=== PATIENT | male | born 1940 | race Caucasian/White ===

== ENCOUNTER → 2018-04-11 10:11 | Outpatient (REF) | payer MEDICARE, SELFPAY ==
[2018-04-11 13:49] LABS: Anion Gap 8.4 mmol/L (3-11); BUN 21 mg/dL (7-18); CO2 28.6 mmol/L (21.0-32.0); CREATININE 1.22 mg/dL (0.70-1.30); Calcium 8.4 mg/dL (8.5-10.1); Chloride 108 mmol/L (98-107); Glucose 134 mg/dL (70-100); Potassium 4.7 mmol/L (3.5-5.1); Sodium 145 mmol/L (136-145)
[2018-04-12 11:24] LABS: PSA, Screening 0.2 ng/ml (0-6.5)
== END ==
LOC: NCHCN 10:11
PROVIDERS: PCP Family Medicine; Visit Provider Family Medicine
DX: I10 Essential (primary) hypertension (principal); Z12.5 Encounter for screening for malignant neoplasm of prostate
CPT/HCPCS: 80048; 84153

== ENCOUNTER → 2018-04-12 07:32 | Outpatient (CLI) | payer MEDICARE, SELFPAY | PROVIDERS: PCP Family Medicine; Visit Provider Surgery | DX: L97.911 Non-pressure chronic ulcer of unspecified part of right lower leg limited to breakdown of skin (principal) | CPT/HCPCS: 29580 ==

== ENCOUNTER 2018-04-12 13:30 | Outpatient (RCR) | payer MEDICARE, SELFPAY ==
--- NOTE | 2018-04-12 13:30 | PN_ITS ---
DATE: April 12, 2018 REFERRING: Ry Navas MD REFERRING PROVIDER DIAGNOSIS:: knee and hip pain REPORTING PERIOD (for progress note and discharge note only): 01/18/18-04/12/18 SUBJECTIVE: Andres feels that he has made some great gains in his mobility, strength and level of pain in his lower extremities. He would like to continue his program on the Wellness level. He overall notes increased stamina and ability to complete increased demurrage agent with more manageable symptoms. OBJECTIVE: Observation: (behavior, atrophy, skin color, etc.) Utilizes a standard, single point cane for ambulation.Independent with functional transfers including bed mobility. Is currently able to complete 2 sit to stand transfers without use of UE. Gait: Single point cane with a widened base of support and a toe out pattern. Improved kelli. Improved stride length and stamina. 6 minute walk assessment 250 meters in comparison to 118 meters upon IE in January. Still remains shy of Age appropriate range of 357 to 697 meters.However significant improvement since IE. ROM: Active right hip flexion to 90 ; left 90 , ext rotation right 45 ; left 40 , int rotation right 10; left 20 . knee flexion right 105 ; left 115 , terminal extension right lacking 5 with 0 extension. Strength: Hip flexion 4/5 bilaterally, hip abduction 4-/5 right; 4/5 left, ext rotation 4/5 bilaterally, knee flexion and extension 5/5 bilaterally and he is able to complete an active SLR in flexion and abduction. Unable to lay prone, therefore unable to assess extension. Neuro: Sensation is intact to light touch. Balance: 4 stage balance test, feet together x10 seconds, foot in instep of other foot x10 seconds and he is not able to assume tandem, however demonstrates modified tandem at 10 seconds. Unable to perform unilateral stance. 30 second chair stand test, 2 repetitions. Was unable to perform at IE. ASSESSMENT: Andres has made significant gains since evaluation in early January. Feel at this time he can proceed with independent self management via strong HEP. Have also recommended Wellness program for him to continue with his functional strength and stamina. Do not want to see him losing ground. Patient is also in agreement and knows that he needs to continue to build his functional strength and endurance on a regular basis to avoid continued decline. KX modifier to be utilized as justified by above documentation for necessity of continued Physical Therapy intervention to attend to functional deficits which have not been fully remediated as they approach their Medicare cap. G-Codes (fill in modifier after appropriate code): Patient's primary functional limitation is in the category of: Projected goal: __x__ Mobility - walking and moving around: [id number] Discharge Status: [id number] [id number] based upon clinical judgement. STG: __4__ weeks. 1) improve 6 minute walk ambulation by 50 meters or more(MET) 2) able to complete 2 sit to stand transfers without reliance on his UE( MET) 3) able to assume tandem stance for 3 to 5 seconds( Not met) 4) improve LE strength by 1/2 muscle grade or greater(MET) LTG: __10__ weeks. 1) independent with self management program(MET) 2) ambulate 200 meters or greater via 6 minute walk(MET) 3) able to complete 5 sit to stand transfers without reliance on UEs(not met) PLAN: Patient will be discharged from our care at this time. He will continue via [facility] or Wellness program. Will contact PCP if further problems occur.
== END 2018-05-06 23:59 | disposition home or self-care (01) ==
LOC: PT 13:30
PROVIDERS: PCP Family Medicine; Referring Provider Student in an Organized Health Care Education/Training Program; Visit Provider Student in an Organized Health Care Education/Training Program
DX: M25.561 Pain in right knee (principal); M25.562 Pain in left knee; M54.5 Low back pain; M62.81 Muscle weakness (generalized)
CPT/HCPCS: 97110

== ENCOUNTER → 2018-04-21 00:45 | Outpatient (CLI) | payer MEDICARE, SELFPAY ==
--- NOTE | 2018-04-21 09:00 | DI.RPTCT_ITS ---
SYMPTOMS/DIAGNOSIS: LOWER QUADRANT ABDOMINAL SWELLING, MASS OR LUMP, RIGHT, R19.03, ABDOMINAL SYMMETRY, NO PAIN ABDOMINAL AND PELVIC CT: CT examination of the abdomen and pelvis was performed with a bolus infusion of 100 cc of Omnipaque 350 and ingestion of dilute barium. Due to the patient's size, a portion of the right abdominal wall and lateralmost aspect of ascending colon and transverse colon are not included on the scanning field. Images obtained through the lung bases are unremarkable. Hepatic contour appears nodular, raising the possibility of cirrhosis. Spleen is unremarkable in appearance. Gallbladder has been surgically removed. No biliary dilatation is seen. No upper abdominal venous collateral circulation identified. The left kidney contains a couple of nonobstructing calculi and a few presumed renal cortical cysts. Right kidney has a similar appearance with nonobstructing calculi and renal cortical cysts, the largest in the lower pole measuring about 3 cm in diameter. Adrenals are unremarkable in appearance bilaterally. Pancreas is normal in appearance. Abdominal aorta is of normal diameter and no major vascular abnormality is seen. There are small bilateral fat-containing inguinal hernias. No other significant abdominal wall hernia seen. No mass identified in the abdominal wall, lower abdomen or pelvis. No evidence of diverticulitis or bowel obstruction. Appendix is not specifically identified, but there is no evidence of appendicitis or diverticulitis. No abdominal or pelvic adenopathy seen. Right hip prosthesis is noted in place. CONCLUSION: 1. Findings suggesting hepatic cirrhosis. 2. Prior cholecystectomy noted. 3. Bilateral nonobstructing renal calculi and cysts. 4. No evidence of abdominal or abdominal wall mass or adenopathy.
[2018-04-21 09:29] LABS: CREATININE 1.12 mg/dL (0.70-1.30)
[2018-04-21] MEDS: Omnipaque 350 MG/ML 100 ML BTL IJ (10:54)
[2018-04-21] MEDS: Breeza Beverage 473 ML BTL PO (10:55)
[2018-04-21] MEDS: Omnipaque 350 MG/ML 50 ML BTL IJ (10:55)
== END ==
PROVIDERS: PCP Family Medicine; Visit Provider Family Medicine
DX: R19.03 Right lower quadrant abdominal swelling, mass and lump (principal); N20.0 Calculus of kidney; Z90.49 Acquired absence of other specified parts of digestive tract
CPT/HCPCS: 74177; Q9967; 36415; 82565; J3490

== ENCOUNTER → 2018-04-29 11:49 | Outpatient (CLI) | payer MEDICARE, SELFPAY ==
[2018-04-29 13:16] LABS: Iron 60 ug/dL (50-175); Total Iron Binding Capacity 235 ug/dL (250-450); Transferrin Sat 26 % (20-55)
[2018-04-29 13:28] LABS: Ferritin 224 ng/mL (8-388)
[2018-04-30 14:29] LABS: Hepatitis A IgM Ab Negative (Negative)
[2018-05-02 10:59] LABS: Hepatitis C Ab w Rflx HCV PCR Negative (NEGAT)
[2018-05-02 11:47] LABS: Hepatitis B Surface Ag Negative (NEGAT)
[2018-05-02 12:08] LABS: HBs Antibody, Quant <3.1 mIU/mL; Hepatitis B Surface Ab Negative
[2018-05-02 12:29] LABS: Hep B Core Antibody Negative (NEGAT)
== END ==
PROVIDERS: PCP Family Medicine; Visit Provider Family Medicine
DX: K74.60 Unspecified cirrhosis of liver (principal); Z11.51 Encounter for screening for human papillomavirus (HPV)
CPT/HCPCS: 29580; 36415; 86704; 86706; 86803; 87340; 82728; 83540; 83550; 86709

== ENCOUNTER → 2018-04-29 15:31 | Outpatient (CLI) | payer MEDICARE, SELFPAY | PROVIDERS: PCP Family Medicine; Visit Provider Surgery | DX: L97.911 Non-pressure chronic ulcer of unspecified part of right lower leg limited to breakdown of skin (principal); Z48.00 Encounter for change or removal of nonsurgical wound dressing | CPT/HCPCS: 29580 ==

== ENCOUNTER → 2018-05-06 15:44 | Outpatient (CLI) | payer MEDICARE, SELFPAY | PROVIDERS: PCP Family Medicine; Visit Provider Surgery | DX: L97.911 Non-pressure chronic ulcer of unspecified part of right lower leg limited to breakdown of skin (principal) | CPT/HCPCS: 29580 ==

== ENCOUNTER 2018-10-24 11:33 | Outpatient (CLI) | payer MEDICARE, SELFPAY ==
[2018-10-24 12:38] LABS: ALT 22 U/L (12-78); AST 15 U/L (15-37); Albumin 3.6 g/dL (3.4-5.0); Alkaline Phosphatase 150 U/L (46-116); Anion Gap 7.8 mmol/L (3-11); BUN 26 mg/dL (7-18); Bilirubin, Total 0.6 mg/dL (0.2-1.0); CO2 29.2 mmol/L (21.0-32.0); CREATININE 1.33 mg/dL (0.70-1.30); Calcium 8.8 mg/dL (8.5-10.1); Chloride 104 mmol/L (98-107); Glucose 171 mg/dL (70-100); Potassium 4.2 mmol/L (3.5-5.1); Sodium 141 mmol/L (136-145)
[2018-10-24 12:56] LABS: HCT 43.1 % (40.0-50.0); HGB 13.7 g/dL (13.5-17.5); Mean Corp. HGB Concentration 31.8 g/dL (32.0-36.0); Mean Platelet Volume 10.6 fL (8.0-11.0); Platelet Count 250 x1000/uL (130-400); RBC Distribution Width 13.9 % (11.8-14.1); White Blood Cell Count 8.88 k/cumm (4.4-10.8)
== END 2018-10-24 11:53 ==
PROVIDERS: PCP Family Medicine; Visit Provider Family Medicine
DX: I10 Essential (primary) hypertension (principal)
CPT/HCPCS: 36415; 80053; 85027

== ENCOUNTER 2018-11-17 13:44 | Outpatient (REF) | payer MEDICARE, SELFPAY ==
[2018-11-17 18:04] LABS: Anion Gap 8.3 mmol/L (3-11); BUN 44 mg/dL (7-18); CO2 26.7 mmol/L (21.0-32.0); CREATININE 1.74 mg/dL (0.70-1.30); Calcium 9.6 mg/dL (8.5-10.1); Chloride 102 mmol/L (98-107); Estimated GFR 38.14 (mL/min/1.73m2); Glucose 175 mg/dL (70-100); Potassium 5.4 mmol/L (3.5-5.1); Sodium 137 mmol/L (136-145)
== END 2018-11-17 14:04 ==
LOC: NCHCN 13:44
PROVIDERS: PCP Family Medicine; Visit Provider Family Medicine
DX: I10 Essential (primary) hypertension (principal)
CPT/HCPCS: 80048

== ENCOUNTER 2018-12-15 13:59 | Outpatient (REF) | payer MEDICARE, SELFPAY ==
[2018-12-15 18:34] LABS: Anion Gap 10.6 mmol/L (3-11); BUN 48 mg/dL (7-18); CO2 22.4 mmol/L (21.0-32.0); CREATININE 1.83 mg/dL (0.70-1.30); Chloride 103 mmol/L (98-107); Estimated GFR 35.98 (mL/min/1.73m2); Glucose 197 mg/dL (70-100); Sodium 136 mmol/L (136-145)
== END 2018-12-15 14:19 ==
LOC: NCHCN 13:59
PROVIDERS: PCP Family Medicine; Visit Provider Family Medicine
DX: E87.5 Hyperkalemia (principal)
CPT/HCPCS: 80048

== ENCOUNTER 2018-12-28 08:31 | Outpatient (REF) | payer MEDICARE, SELFPAY ==
[2018-12-28 13:20] LABS: Anion Gap 7.5 mmol/L (3-11); BUN 48 mg/dL (7-18); CO2 26.5 mmol/L (21.0-32.0); CREATININE 1.67 mg/dL (0.70-1.30); Chloride 104 mmol/L (98-107); Estimated GFR 39.99 (mL/min/1.73m2); Glucose 198 mg/dL (70-100); Potassium 5.2 mmol/L (3.5-5.1); Sodium 138 mmol/L (136-145)
== END 2018-12-28 08:51 ==
LOC: NCHCN 08:31
PROVIDERS: PCP Family Medicine; Visit Provider Family Medicine
DX: I10 Essential (primary) hypertension (principal)
CPT/HCPCS: 80048

== ENCOUNTER 2019-01-02 11:49 | Outpatient (REF) | payer MEDICARE, SELFPAY ==
[2019-01-02 13:14] LABS: COMMENT (LAB VIEW ONLY) 44.92 mg/dL; Microalb ug/mg Crea 27.2 ug/mg Cr
== END 2019-01-02 12:09 ==
LOC: NCHCN 11:49
PROVIDERS: PCP Family Medicine; Visit Provider Family Medicine
DX: E11.9 Type 2 diabetes mellitus without complications (principal)
CPT/HCPCS: 82043; 82570

== ENCOUNTER 2019-02-01 11:49 | Outpatient (REF) | payer MEDICARE, SELFPAY ==
[2019-02-01 13:06] LABS: Anion Gap 10.6 mmol/L (3-11); BUN 24 mg/dL (7-18); CO2 26.4 mmol/L (21.0-32.0); CREATININE 1.31 mg/dL (0.70-1.30); Calcium 8.4 mg/dL (8.5-10.1); Chloride 103 mmol/L (98-107); Estimated GFR 52.92 (mL/min/1.73m2); Glucose 255 mg/dL (70-100); Potassium 4.3 mmol/L (3.5-5.1); Sodium 140 mmol/L (136-145)
== END 2019-02-01 12:09 ==
LOC: NCHCN 11:49
PROVIDERS: PCP Family Medicine; Visit Provider Family Medicine
DX: E11.9 Type 2 diabetes mellitus without complications (principal); I10 Essential (primary) hypertension
CPT/HCPCS: 80048

== ENCOUNTER 2019-03-13 16:19 | Inpatient (IN) | payer MEDICARE, SELFPAY ==
[2019-03-13 16:26] VITALS: BP 149/57; PULSE 79; RESP 16; TEMP 36.6
--- NOTE | 2019-03-13 16:53 | DI.RAD_ITS ---
SYMPTOM/DIAGNOSIS: MID LEG WOUND RIGHT LE03/13/19 Three views were obtained. There is reportedly a history of cellulitis. Possible old healed tibial fracture noted. No gross acute bony erosion or destruction. No new periosteal reaction seen. CONCLUSION: No radiographic evidence of osteomyelitis. If there is a clinical suspicious of osteomyelitis additional evaluation with bone scan or MRI may be considered.
--- NOTE | 2019-03-13 16:54 | ED.GENADUL_ITS ---
Discharge Plan Disposition Patient Disposition: [facility] INPATIENT Condition: Stable Discharge Details Chief Complaint: GenMedical Clinical Impression: Cellulitis of leg, right Primary Care Provider: Soledad Slaughter ED Provider: Isaiah Figueroa Home Meds and New Rx's Prescriptions: No Action furosemide 40 mg Tablet 40 mg PO DAILY RF: 0 metolazone 2.5 mg Tablet 2.5 mg PO .TWICE WEEKLY RF: 0 atorvastatin 40 mg Tablet 40 mg PO DAILY RF: 0 metformin 500 mg Tablet 500 mg PO BID RF: 0 citalopram 10 mg Tablet 10 mg PO DAILY RF: 0 clonidine HCl 0.3 mg Tablet 0.3 mg PO TID RF: 0 cyanocobalamin (vitamin B-12) [Vitamin B-12] 1,000 mcg Tablet 1,000 mcg PO BID RF: 0 clopidogrel 75 mg Tablet 75 mg PO DAILY RF: 0 allopurinol 100 mg Tablet 100 mg PO DAILY RF: 0 aspirin [Aspir-Low] 81 mg Tablet,Delayed Release (Dr/Ec) 81 mg PO DAILY RF: 0 tramadol 50 mg Tablet 50 mg PO TID PRNRF: 0 acetaminophen [Tylenol Arthritis Pain] 650 mg Tablet Extended Release 650 mg PO Q4H PRN PRNRF: 0 amlodipine 10 mg Tablet 10 mg PO DAILY RF: 0 fluticasone propion-salmeterol [Advair Diskus] 500-50 mcg/dose Blister With Device 1 inh INHALATION BID RF: 0 lisinopril 30 mg Tablet 30 mg PO DAILY RF: 0 naproxen 500 mg Tablet 500 mg PO BID PRNRF: 0 Spiriva with HandiHaler 18 mcg Capsule, W/Inhalation Device 1 cap INHALATION DAILY RF: 0 Medical Decision Making 78 yo male with hx of DM and chronic venous stasis and a chronic wound of the right leg was sent in from Dr. Turner's office for IV abx and admission for worsening wound infection. Apparently the past few days has had increased pain, discharge and redness around the wounds. HE arrives HD stable in no distress. HE has an about 3-4 cm round wound in the right lateral mid lower leg with mid gangrene and 4-5 cm surrounding erythema. HAs some white discharge material on top of the wound. No crepitus or severe pain or fluctuance so doubt nec fasc or abscess. Will obtain lab work and will likely need admission for IV abx labs show elevated crp and esr, has creatining of 1.78, up from 1.3 in January, K of 5.8 without ekg changes. Spoke with Dr. kiser who accepts admission. Dr. Turner saw patient here and will plan on seeing him in the AM as well for f/u Differential Diagnosis wound infection, diabetic wound Medical Records Medical records reviewed: Yes I reviewed the patient's medical records. pt initially placed on fernell for first name, so looked up his record under his actual name Imaging Data Radiologic Study: Attestation: I personally reviewed and interpreted this imaging study as follows: Imaging: X-Ray My impression: no acute findings Lab Data Lab results reviewed: Yes I reviewed the patient's lab results. ECG Data Attestation: I personally reviewed and interpreted this ECG (s) as follows: Prior ECG tracings: available for review Interpretation: sinus rhythm, rate of 70, pr 190, no acute st t wave ischemic changes compared to old ekg HPI General Mode of arrival: wheelchair . Date/Time Provider Initiated Documentation: 03/13/19 16:21 . Limitations to Documentation: no limitations . Information obtained by: patient . History of Present Illness 78 year old M presents to the emergency department with the chief complaint of right leg wound pain, described as moderate, Quality is described as aching, and is localized to the right and lower extremity. Patient reports no radiation. and it has been other (worsening). No relieving factors improve symptom(s), No exacerbating factors reported . Patient notes no other symptoms.. Related Data Home Medications Medication Instructions Recorded Confirmed acetaminophen [Tylenol Arthritis 650 mg PO Q4H PRN PRN 03/13/19 03/13/19 Pain] allopurinol 100 mg PO DAILY 03/13/19 03/13/19 amlodipine 10 mg PO DAILY 03/13/19 03/13/19 aspirin [Aspir-Low] 81 mg PO DAILY 03/13/19 03/13/19 atorvastatin 40 mg PO DAILY 03/13/19 03/13/19 citalopram 10 mg PO DAILY 03/13/19 03/13/19 clonidine HCl 0.3 mg PO TID 03/13/19 03/13/19 clopidogrel 75 mg PO DAILY 03/13/19 03/13/19 cyanocobalamin (vitamin B-12) 1,000 mcg PO BID 03/13/19 03/13/19 [Vitamin B-12] fluticasone propion-salmeterol 1 inh INHALATION BID 03/13/19 03/13/19 [Advair Diskus] furosemide 40 mg PO DAILY 03/13/19 03/13/19 lisinopril 30 mg PO DAILY 03/13/19 03/13/19 metformin 500 mg PO BID 03/13/19 03/13/19 metolazone 2.5 mg PO .TWICE WEEKLY 03/13/19 03/13/19 naproxen 500 mg PO BID PRN 03/13/19 03/13/19 tiotropium bromide [Spiriva with 1 cap INHALATION DAILY 03/13/19 03/13/19 HandiHaler] tramadol 50 mg PO TID PRN 03/13/19 03/13/19 Allergies Allergy/AdvReac Type Severity Reaction Status Date / Time No Known Allergies Allergy Unverified 03/13/19 17:32 General Stated Complaint: GenMedical MAURILIO: 3 Review of Systems Review of Systems All systems reviewed & are unremarkable except as noted in HPI and below Constitutional Denies chills, Denies fever(s) and Denies weakness ENT Denies change in voice Cardiovascular Denies chest pain and Denies dyspnea Respiratory Denies cough and Denies dyspnea Gastrointestinal Denies abdominal pain, Denies nausea and Denies vomiting Neurologic Denies weakness PFSH Social History Smoking/Tobacco Use Status: Former Tobacco Use Alcohol Intake: never Substance use type: does not use Exam Const General: no acute distress Orientation: alert HENMT Head: normal to inspection Ears: external ears normal General nose exam: external nose normal Mouth: moist mucous membranes Eyes General: appearance normal, both eyes and all related structures Neck Neck: normal visual inspection Resp Effort & Inspection: normal respiratory effort and able to speak in complete sentences Cardio Rate: regular rate Skin General skin exam: elasticity normal Neuro General: alert and oriented x3 Extrem General: normal capillary refill Psych Mental Status: mental status grossly normal Course Vital Signs Temperature 36.6 C 03/13/19 16:26 Pulse 79 03/13/19 16:26 Respiratory Rate 16 03/13/19 16:26 Blood Pressure 149/57 H 03/13/19 16:26 Temperature 36.6 C 03/13/19 16:26 Temperature Source Skin 03/13/19 16:26 Pulse 79 03/13/19 16:26 Respiratory Rate 16 03/13/19 16:26 Respiratory Effort Non-Labored 03/13/19 16:37 Blood Pressure 149/57 H 03/13/19 16:26 Blood Pressure Position Supine 03/13/19 16:26 Oxygen Delivery Method Room Air 03/13/19 16:26 Oxygen Flow Rate 0 03/13/19 16:26 Lab/Test Results Lab/Test Results: 03/13/19 16:43 Blood Blood Culture - Pending 03/13/19 16:43 Blood Blood Culture - Pending
--- NOTE | 2019-03-13 17:04 | NUR.NOTE ---
Nursing Note: Difficulty obtaining an IV, additional assistance requested.
[2019-03-13 17:08] LABS: Lactate-non-spesis 1.4 mmol/l (0.6-1.4)
[2019-03-13 17:13] LABS: Abs Immature Grans 0.04 k/cumm (0.0-0.09); Absolute Basophil Count 0.04 k/cumm (0.0-0.2); Absolute Lymphocyte Count 1.36 k/cumm (1.2-3.4); Absolute Monocyte Count 0.77 k/cumm (0.11-0.7); Absolute Neutrophil Count 7.93 k/cumm (1.2-6.7); Basophils % 0.4; Eosinophils % 2.9; HCT 36.7 % (40.0-50.0); HGB 11.7 g/dL (13.5-17.5); Immature Grans % 0.4; Mean Corp. HGB Concentration 31.9 g/dL (32.0-36.0); Mean Corpuscular Volume 91.1 fL (80-95); Mean Platelet Volume 9.8 fL (8.0-11.0); Monocytes % 7.4; Neutrophils % 75.9; Platelet Count 266 x1000/uL (130-400); RBC 4.03 m/cumm (4.50-6.00); RBC Distribution Width 13.7 % (11.8-14.1); White Blood Cell Count 10.44 k/cumm (4.4-10.8)
[2019-03-13] MEDS: Ketorolac 15 MG/ML VIAL IVP (17:18)
[2019-03-13 17:30] LABS: ALT 13 U/L (12-78); AST 10 U/L (15-37); Albumin 3.3 g/dL (3.4-5.0); Alkaline Phosphatase 143 U/L (46-116); Anion Gap 9.3 mmol/L (3-11); BUN 46 mg/dL (7-18); Bilirubin, Total 0.5 mg/dL (0.2-1.0); CO2 23.7 mmol/L (21.0-32.0); CREATININE 1.78 mg/dL (0.70-1.30); Calcium 9.3 mg/dL (8.5-10.1); Chloride 104 mmol/L (98-107); Estimated GFR 37.15 (mL/min/1.73m2); Glucose 238 mg/dL (70-100); Magnesium 1.9 mg/dL (1.8-2.4); Potassium 5.8 mmol/L (3.5-5.1); Sodium 137 mmol/L (136-145); Total Protein 7.5 g/dL (6.4-8.2)
[2019-03-13 17:36] LABS: C-Reactive Protein 7.51 mg/dL (0.0-0.3)
[2019-03-13 17:44] LABS: Procalcitonin 0.1 ng/mL
[2019-03-13 17:52] LABS: ESR 73 MM/HR (1-20)
--- NOTE | 2019-03-13 18:35 | DI.VRAD_ITS ---
EXAM: XR Right Tibia and Fibula EXAM DATE/TIME: 03/13/2019 4:54 PM CLINICAL HISTORY: 78 years old, male; Cellulitis and swelling, leg or foot; Lower leg; Right; Additional info: Weeping leg wound TECHNIQUE: Imaging protocol: XR Right tibia and fibula. Views: 2 views. COMPARISON: No relevant prior studies available. FINDINGS: Bones/joints: Osseous structures appear mildly osteopenic. Mild degenerative changes of the ankle joints. No visualized fracture or subluxation on this exam. There is a cortical thickening Involving the bones may represent sequela of prior trauma. Soft tissues: Small soft tissue calcifications in the superficial soft tissues may be vascular or related to prior trauma. IMPRESSION: No acute osseous findings. Dictated and Authenticated by: Reginaldo Bunch MD. Ordering:SHANNA Colon MD
[2019-03-13] MEDS: Acetaminophen 500 MG TAB 1000 MG PO (18:43)
[2019-03-13] MEDS: traMADol 50 MG TAB PO (18:54)
[2019-03-13] MEDS: PIPERACILLIN/TAZO 4.5 GM in Normal Saline 100 ML IVPB (19:31)
[2019-03-13] MEDS: Normal Saline 1,000 ML 150 ML IV (19:39)
[2019-03-13 19:47] VITALS: BP 126/49; PULSE 75; RESP 16; TEMP 36.7; O2SAT 98
[2019-03-13 20:16] VITALS: BP 174/86; PULSE 83; RESP 16; TEMP 36.2; O2SAT 99
[2019-03-13 20:33] VITALS: BP 174/86; PULSE 83; RESP 17; TEMP 36.2; O2SAT 99
[2019-03-13] MEDS: Atorvastatin 40 MG TAB PO (22:05)
[2019-03-13] MEDS: Enoxaparin 40 MG/0.4 ML SYR 30 MG SC (22:05)
[2019-03-13 23:13] VITALS: BP 163/85; PULSE 95; RESP 14; TEMP 36.9; O2SAT 97
[2019-03-14] VITALS (7 sets, daily range): BP systolic 139–170; BP diastolic 69–95; PULSE 69–92; RESP 15–20; TEMP 36.1–37.5; O2SAT 91–98
[2019-03-14] MEDS: Acetaminophen 325 MG TAB PO ×3 (00:59→18:12)
[2019-03-14] MEDS: PIPERACILLIN/TAZO 2.25 GM in Normal Saline 50 ML IVPB ×4 (02:05→20:08)
[2019-03-14] MEDS: Normal Saline 50 ML (02:21)
[2019-03-14] MEDS: traMADol 50 MG TAB PO ×3 (02:58→20:09)
--- NOTE | 2019-03-14 06:40 | HPE_ITS ---
Date of service: 03/14/19 Time of Service: 06:37 Assessment and Plan (1) Cellulitis: Start date: 03/11/19 Current visit: Yes Status: Acute Worsening redness, pain, discharge. Failed outpatient management. Initial drug of choice Unasyn unavailable. Empiric therapy with Zosyn. He received a 4.5 g load but because of his renal function will decrease to 2.25 g every 6 hours. Podiatry consult. Wound consult. (2) SAMMI on CPAP: Current visit: Yes Status: Chronic Continue nocturnal CPAP. (3) Venous stasis ulcer: Current visit: Yes Status: Chronic Ongoing wound care. Wound consult pending (4) Diabetes: Current visit: Yes Status: Chronic Continue to monitor blood sugars closely. Hold on metformin given elevated creatinine. Sliding scale aspart. Check hemoglobin A1c. Consider switching to basal insulin. (5) Discharge planning issues: Current visit: Yes Status: Acute He is a full code. Admitted to observation status. Anticipate surgical debridement by Dr. Christianson pending his consult. History of Present Illness Chief Complaint: Venous stasis ulcer with infection/cellulitis Narrative: 78-year-old man being treated for a chronic venous stasis ulcer in the right ankle by Dr. Christianson presents to the emergency room on recommendation of Dr. Christianson because of worsening redness, pain, discharge. In the emergency room he had about a 3 to 4 cm ulceration in the lateral right ankle that had a central area of black eschar. There was serosanguineous drainage and foul odor. There was surrounding erythema consistent with cellulitis. He is admitted for IV antibiotic therapy. He did not have a fever, white count was minimally elevated, inflammatory markers were elevated, CRP 7.51, ESR 73. Lactate 1.4, procalcitonin 0.1. Review of Systems Review of Systems He has been having increasing pain in his right leg over the last 2 to 3 days. Is affected his sleep. No associated chest pain or shortness of breath. No digestive or genitourinary problems. His right lower leg has had an ulcer that is been treated by Dr. Christianson for several months now. It has not been healing and in fact getting more painful and larger despite Unna boot therapy and local care. PFSH Medical History Cellulitis (Acute) Hx TIA/stroke w/o resid (Resolved) SAMMI on CPAP (Chronic) HLD (hyperlipidemia) (Chronic) HTN (hypertension) (Chronic) COPD (chronic obstructive pulmonary disease) (Chronic) Venous stasis ulcer (Chronic) Diabetes (Chronic) Social History Smoking/Tobacco Use Status: Former Tobacco Use Alcohol Intake: never Substance use type: does not use Meds Home Medications Medication Instructions Recorded Confirmed Type acetaminophen [Tylenol Arthritis 650 mg PO Q4H PRN PRN 03/13/19 03/13/19 History Pain] allopurinol 100 mg PO DAILY 03/13/19 03/13/19 History amlodipine 10 mg PO DAILY 03/13/19 03/13/19 History aspirin [Aspir-Low] 81 mg PO DAILY 03/13/19 03/13/19 History atorvastatin 40 mg PO DAILY 03/13/19 03/13/19 History citalopram 10 mg PO DAILY 03/13/19 03/13/19 History clonidine HCl 0.3 mg PO TID 03/13/19 03/13/19 History clopidogrel 75 mg PO DAILY 03/13/19 03/13/19 History cyanocobalamin (vitamin B-12) 1,000 mcg PO BID 03/13/19 03/13/19 History [Vitamin B-12] fluticasone propion-salmeterol 1 inh INHALATION BID 03/13/19 03/13/19 History [Advair Diskus] furosemide 40 mg PO DAILY 03/13/19 03/13/19 History lisinopril 30 mg PO DAILY 03/13/19 03/13/19 History metformin 500 mg PO BID 03/13/19 03/13/19 History metolazone 2.5 mg PO .TWICE WEEKLY 03/13/19 03/13/19 History naproxen 500 mg PO BID PRN 03/13/19 03/13/19 History tiotropium bromide [Spiriva with 1 cap INHALATION DAILY 03/13/19 03/13/19 History HandiHaler] tramadol 50 mg PO TID PRN 03/13/19 03/13/19 History Allergies Allergy/AdvReac Type Severity Reaction Status Date / Time No Known Allergies Allergy Unverified 03/13/19 17:32 Exam Narrative Exam Narrative: Generally well in no apparent distress. Complaining of right leg pain. Const General: cooperative and healthy appearing Nutritional Appearance: obese Orientation: alert, awake and oriented x3 HENMT Head: normal to inspection Ears: hearing grossly normal bilaterally General nose exam: external nose normal Face and sinus: normal facial exam Chest Chest: normal inspection of the chest Resp Effort & Inspection: normal respiratory effort Auscultation: clear to auscultation bilaterally Cardio Rate: regular rate Rhythm: regular rhythm Heart Sounds: no murmurs GI Inspection: normal to inspection and obesity Palpation: soft and nontender Skin Lesions: lesion noted (Scattered purpura on forearms) Neuro General: alert, awake, oriented x3, moves all extremities and no focal motor deficits Extrem Right lower extremity: ankle ([place] shallow ulcer about 4 x 5 cm, central black eschar about 3 x 3 cm) Details: tenderness, swelling (Minimal), warmth and other (Surrounding erythema both rostral and caudal to the wound x 3-4 cm); no crepitus Results Labs : 03/13/19 16:52 03/13/19 16:52 Laboratory Results - last 24 hr 03/13/19 03/13/19 03/13/19 16:52 16:52 16:52 WBC RBC Hgb Hct MCV MCH MCHC RDW Plt Count MPV Immature Gran % Neutrophils % Lymphocytes % Monocytes % Eosinophils % Basophils % Absolute Neutrophils Absolute Lymphocytes Absolute Monocytes Absolute Eosinophils Absolute Basophils ESR 73 H Sodium Potassium Chloride Carbon Dioxide Anion Gap BUN Creatinine Estimated GFR/1.73 m2 Glucose Lactate Calcium Magnesium Total Bilirubin AST ALT Alkaline Phosphatase C-Reactive Protein 7.51 H Total Protein Albumin Procalcitonin 0.1 03/13/19 03/13/19 03/13/19 16:52 16:52 16:52 WBC 10.44 RBC 4.03 L Hgb 11.7 L Hct 36.7 L MCV 91.1 MCH 29.0 MCHC 31.9 L RDW 13.7 Plt Count 266 MPV 9.8 Immature Gran % 0.4 Neutrophils % 75.9 Lymphocytes % 13.0 Monocytes % 7.4 Eosinophils % 2.9 Basophils % 0.4 Absolute Neutrophils 7.93 H Absolute Lymphocytes 1.36 Absolute Monocytes 0.77 H Absolute Eosinophils 0.30 Absolute Basophils 0.04 ESR Sodium 137 Potassium 5.8 H Chloride 104 Carbon Dioxide 23.7 Anion Gap 9.3 BUN 46 H Creatinine 1.78 H Estimated GFR/1.73 m2 37.15 Glucose 238 H Lactate 1.4 Calcium 9.3 Magnesium 1.9 Total Bilirubin 0.5 AST 10 L ALT 13 Alkaline Phosphatase 143 H C-Reactive Protein Total Protein 7.5 Albumin 3.3 L Procalcitonin Last Vital Signs Temp 36.6 C 03/14/19 03:07 Pulse 84 03/14/19 03:07 Resp 15 03/14/19 03:07 BP 156/69 H 03/14/19 03:07 Pulse Ox 98 03/14/19 03:07
[2019-03-14] MEDS: oxyCODONE 5 MG TAB PO ×5 (06:54→23:38)
[2019-03-14 07:34] LABS: Abs Immature Grans 0.03 k/cumm (0.0-0.09); Absolute Basophil Count 0.04 k/cumm (0.0-0.2); Absolute Eosinophil Count 0.26 k/cumm (0.0-0.7); Absolute Monocyte Count 0.82 k/cumm (0.11-0.7); Basophils % 0.4; Eosinophils % 2.4; HCT 36.3 % (40.0-50.0); HGB 11.5 g/dL (13.5-17.5); Immature Grans % 0.3; Lymphocytes % 11.9; Mean Corp. HGB Concentration 31.7 g/dL (32.0-36.0); Mean Corpuscular Hemoglobin 28.6 pg (27.0-33.0); Mean Corpuscular Volume 90.3 fL (80-95); Mean Platelet Volume 9.7 fL (8.0-11.0); Monocytes % 7.5; Neutrophils % 77.5; Platelet Count 272 x1000/uL (130-400); RBC 4.02 m/cumm (4.50-6.00); RBC Distribution Width 13.5 % (11.8-14.1); White Blood Cell Count 10.94 k/cumm (4.4-10.8)
[2019-03-14 07:35] LABS: Absolute Neutrophil Count 8.48 k/cumm (1.2-6.7)
--- NOTE | 2019-03-14 07:37 | POCOE_ITS ---
Date of service: 03/14/19 Time of Service: 07:28 History of Present Illness Chief Complaint: Venous stasis wound right ankle with cellulitis Narrative: Dionna is a 78-year-old male with a chronic venous stasis wound affecting his right lower extremity. This is been a protracted process for him, well over a year, treated for an extended period of time at the wound care center at [facility] subsequently transferred to my care several months ago. He has been undergoing Unna boot treatment with slow but steady improvement he was seen at the vascular department at [facility] for evaluation of his venous system, their opinion was that there was no surgical interventions of benefit to entertain. Over the last week, there is been deterioration of the wound with enlargement, increased drainage, increased pain with local signs of infection and necrosis of the periwound region. He was sent to the emergency department yesterday from my office for hospital admission to include bedrest, IV antibiotics and wound debridement. [facility] Medical History Cellulitis (Acute) Hx TIA/stroke w/o resid (Resolved) SAMMI on CPAP (Chronic) HLD (hyperlipidemia) (Chronic) HTN (hypertension) (Chronic) COPD (chronic obstructive pulmonary disease) (Chronic) Venous stasis ulcer (Chronic) Diabetes (Chronic) Social History Smoking/Tobacco Use Status: Former Tobacco Use Alcohol Intake: never Substance use type: does not use Exam Narrative Exam Narrative: Dionna is seen at bedside. Continues to complain of pain in his right lower extremity. Was recently given oxycodone which was beginning to reduce his level of pain Both lower extremities show chronic venous stasis changes with brawny changes, hemosiderin changes of the skin. Right lower extremity has a venous stasis wound measuring 5 cm x 3.5 cm with a necrotic appearing base of the wound with some undermining noted. The cellulitis appears improved from yesterday but there is still tenderness around the wound and marked edema. Serous drainage is noted on the dressing. He is currently on Zosyn adjusted for renal function. Plan: The wound will need to be debrided. If the level of discomfort significantly diminishes overnight and I can perform this at bedside that would be preferred, however if I cannot achieve this at bedside he will be brought to the OR for surgical debridement. Dionna understands the chronicity of this wound, and understands that it will be a rather long tedious process of management in an effort to get it to resolve I did discuss the case with Dr. Moyer. Results Last Vital Signs Temp 36.6 C 03/14/19 03:07 Pulse 84 03/14/19 03:07 Resp 15 03/14/19 03:07 BP 156/69 H 03/14/19 03:07 Pulse Ox 98 03/14/19 03:07 Labs : 03/13/19 16:52 03/13/19 16:52 Laboratory Results - last 24 hr 03/13/19 03/13/19 03/13/19 16:52 16:52 16:52 WBC RBC Hgb Hct MCV MCH MCHC RDW Plt Count MPV Immature Gran % Neutrophils % Lymphocytes % Monocytes % Eosinophils % Basophils % Absolute Neutrophils Absolute Lymphocytes Absolute Monocytes Absolute Eosinophils Absolute Basophils ESR 73 H Sodium Potassium Chloride Carbon Dioxide Anion Gap BUN Creatinine Estimated GFR/1.73 m2 Glucose Lactate Calcium Magnesium Total Bilirubin AST ALT Alkaline Phosphatase C-Reactive Protein 7.51 H Total Protein Albumin Procalcitonin 0.1 03/13/19 03/13/19 03/13/19 16:52 16:52 16:52 WBC 10.44 RBC 4.03 L Hgb 11.7 L Hct 36.7 L MCV 91.1 MCH 29.0 MCHC 31.9 L RDW 13.7 Plt Count 266 MPV 9.8 Immature Gran % 0.4 Neutrophils % 75.9 Lymphocytes % 13.0 Monocytes % 7.4 Eosinophils % 2.9 Basophils % 0.4 Absolute Neutrophils 7.93 H Absolute Lymphocytes 1.36 Absolute Monocytes 0.77 H Absolute Eosinophils 0.30 Absolute Basophils 0.04 ESR Sodium 137 Potassium 5.8 H Chloride 104 Carbon Dioxide 23.7 Anion Gap 9.3 BUN 46 H Creatinine 1.78 H Estimated GFR/1.73 m2 37.15 Glucose 238 H Lactate 1.4 Calcium 9.3 Magnesium 1.9 Total Bilirubin 0.5 AST 10 L ALT 13 Alkaline Phosphatase 143 H C-Reactive Protein Total Protein 7.5 Albumin 3.3 L Procalcitonin
[2019-03-14 07:50] LABS: BUN 36 mg/dL (7-18); CREATININE 1.53 mg/dL (0.70-1.30); Calcium 8.7 mg/dL (8.5-10.1); Chloride 107 mmol/L (98-107); Estimated GFR 44.24 (mL/min/1.73m2); Glucose 213 mg/dL (70-100); Potassium 4.7 mmol/L (3.5-5.1); Sodium 140 mmol/L (136-145)
[2019-03-14] MEDS: Allopurinol 100 MG TAB PO (08:08)
[2019-03-14] MEDS: cloNIDine 0.1 MG TAB 0.3 MG PO ×3 (08:08→20:08)
[2019-03-14] MEDS: Insulin Aspart 300 UNITS/3 ML PEN SC ×3 (08:08→17:06)
[2019-03-14] MEDS: Citalopram 10 MG TAB PO (08:09)
[2019-03-14] MEDS: amLODIPine 10 MG TAB PO (08:09)
[2019-03-14] MEDS: Aspirin E.C. 81 MG TABEC PO (08:09)
[2019-03-14] MEDS: Furosemide 40 MG TAB PO (08:09)
[2019-03-14] MEDS: Lisinopril 10 MG TAB 30 MG PO (08:09)
[2019-03-14 08:30] LABS: Hemoglobin A1C 8.7 % (4.5-6.2)
[2019-03-14] MEDS: Tiotropium Bromide-Respimat 10 PUFF INH IH (09:32)
[2019-03-14] MEDS: Budesonide/Formoterol 160/4.5 6 GM 60 PUFF INH IH ×2 (09:35→20:17)
[2019-03-14] MEDS: Normal Saline Flush 10 ML SYR IVP ×2 (09:46→14:36)
--- NOTE | 2019-03-14 14:24 | CHAPLAIN ---
Dionna was sitting up in his chair. He told me that he'll be going to the OR tomorrow to have leg wound cleaned out. He shared some personal history, telling me about working for [employer], then [employer] and moving many times. He decided to move back to this area after he retired. He lives in [place], but [facility] to [facility]. He expected his to be in soon to visit. Dionna used to belong to the [facility] [employer], when he first lived here, but since moving away and returning, he has not been to [employer].
--- NOTE | 2019-03-14 14:24 | W.INDIABCONS ---
Date of service: 03/14/19 Time of Service: 14:25 Diabetes Inpatient Consult DESCRIPTION/ASSESSMENT: Appreciate diabetes consult for Mr. Iniguez, hospitalized with leg infection. He is 78 years old with an increase in A1c to 8.7. GFR 44. He manages diabetes with Metformin 500mg twice daily. Here blood sugars 191 fasting to 261 before lunch on moderate insulin correction eating 56 and 32grams carbohydrate at those meals. Visited with Mr. Iniguez who states he knows he needs to lose weight and he recognizes it is portions and treats that challenge him. He has talked with Dr. Slaughter about adding Trulicity to help with blood sugars and weight. INTERVENTION: Discussed medication and possibility of basal insulin to manage blood sugars. Explained benefits, action and side effects. Discussed benefits of trulicity. He wishes to discuss this with his PCP before starting anything. He may benefit from mealtime insulin for carbohydrate suggested at 1 unit covers 10 grams. PLAN: Suggest adding 1 unit for 10 grams Novolog at each meal to keep blood sugars more steady. Time Spent in Nutritional Counseling and Treatment: 15 minutes face to face
--- NOTE | 2019-03-14 16:09 | PDOC.CMIN ---
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 He enjoys fishing and playing on his computer. 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 CURRENT FUNCTIONAL STATUS:: Dionna was sitting up in his chair when CM met with him. He was hopeful to return home today, and forthcoming with information. ADVANCE DIRECTIVES:: On file at [facility]. Agent: Mami Hira; . Alternate; Yanet Moreno. Has patient been provided with information about the portal?: Yes Did the patient sign up for the portal?: Yes (Previously) INSURANCE COVERAGE / FINANCIAL ISSUES:: Medicare. AARP CURRENT HOME/COMMUNITY SERVICES/EQUIPMENT:: Pt reports he utilizes a cane, ramp and CPAP. PRIMARY CARE PHYSICIAN:: Soledad Slaughter M.D. POTENTIAL DISCHARGE NEEDS:: Review discharge instructions, discuss Ask Me Three. PATIENT/FAMILY EDUCATION NEEDS:: Review discharge instructions and follow up plan of care. ANTICIPATED BARRIERS TO DISCHARGE:: None identified. TRANSPORTATION:: Via private vehicle with his , Mami. PLAN:: Dionna will return home when ready, per MD. He will follow up with his plan of care and transport home via private vehicle with his , Mami.
--- NOTE | 2019-03-14 16:22 | INITIAL_ITS ---
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 He enjoys fishing and playing on his computer. 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 CURRENT FUNCTIONAL STATUS:: Dionna was sitting up in his chair when CM met with him. He was hopeful to return home today, and forthcoming with information. ADVANCE DIRECTIVES:: On file at [facility]. Agent: Mami Hira; . Alternate; Yanet Moreno. Has patient been provided with information about the portal?: Yes Did the patient sign up for the portal?: Yes (Previously) INSURANCE COVERAGE / FINANCIAL ISSUES:: Medicare. AARP CURRENT HOME/COMMUNITY SERVICES/EQUIPMENT:: Pt reports he utilizes a cane, ramp and CPAP. PRIMARY CARE PHYSICIAN:: Soledad Slaughter M.D. POTENTIAL DISCHARGE NEEDS:: Review discharge instructions, discuss Ask Me Three. PATIENT/FAMILY EDUCATION NEEDS:: Review discharge instructions and follow up plan of care. ANTICIPATED BARRIERS TO DISCHARGE:: None identified. TRANSPORTATION:: Via private vehicle with his , Mami. PLAN:: Dionna will return home when ready, per MD. He will follow up with his plan of care and transport home via private vehicle with his , Mami.
--- NOTE | 2019-03-14 17:00 | PHARADMIT ---
Addendum entered by Willy Bronson III 03/16/19 12:07: [f_Reg Prim Care Provider] Pharmacy Note Subjective examined patient. Decision to change to oral ABX was made Objective VS-OK K+4.5 SCr-1.25 WBC-11.39 H&H,Plts-OK Wgt-126.2 kg No BM yet Assessment Vancomycin& Zosyn transitioned to PO Clindamycin & Levaquin. Plan If patient continues improvement, further care could be done at home by Addendum entered by Irais Morales 03/15/19 12:25: Pharmacy Note Subjective Debridement in OR today ~1300 for non-healing venous stasis ulcers by Pt is Observation status Objective Afebrile BP 198/69, HR 60-90's (Afib), Mag 1.7, FSBS's 200's Blood no growth x 24h Assessment Lovenox on hold for OR procedure today Zosyn day#3/Vanco day#2 Plavix order cancelled due to OR Plan watch for restart of anticoagulation meds for Hx of CVA coverage follow Anbx coverage and Micro Original Note: Admission Pharmacy Clinical Review Code Status Full Code Current Weight 128.9 kg Renally Cleared and Narrow Therapeutic Index Meds CrCl ~52.1 QTc Value / Action Taken QTc 382 BP Control, Fever BP 145/82, afebrile Electrolytes reviewed Na 140, K+ 4.7, Mg 1.9 DVT Prophylaxis Enoxaparin 30mg Opiate Usage / Scheduled Bowel Regimen Ordered Oxycodone 5mg PRN, yes Plt/SCr for Heparin / Enoxaparin Plt 272, Scr1.53 INR for Warfarin n/a H/H stable, WBC/Bands H/H 36.3/11.5, WBC 10.94 Antibiotic appropriateness Pip/Tazo and Vancomycin Cultures and Sensitivities Blood cultures pending Surgical ABX d/c within 24 hr n/a DM control / Insulin Dosing Aspart per sliding scale Heart Failure (Check EF%) (BOYD's, B-Block, Diuretics) Lisinopril, Furosemide, Clonidine, Amlodipine IV to PO Switch No Home Meds Reviewed Aspirin+Clopidogrel+Naproxen+Citalopram: increased risk of bleeding Home Meds Not Ordered Clopidogrel, Metolazone, Naproxen (prn), Metformin Comments Chronic wound of right leg - empiric coverage with pip/maria c and vanco, cultures pending
--- NOTE | 2019-03-14 17:31 | PGE_ITS ---
Date of Service Date of service: 03/14/19 Time of Service: 17:30 Assessment and Plan (1) Cellulitis: Current visit: Yes Status: Acute Ccellulitic changes surrounding non-healing, necrotic appearing ulcers. Patient was initiated on Pip-Tazo at admission. Will add Vancomycin as well, and monitor for operative and blood cultures. Maintain NPO overnight with plans for OR for debridement. (2) Venous stasis ulcer: Current visit: Yes Status: Chronic Under the care of Dr. Chrisitanson at local wound center. (3) HTN (hypertension): Current visit: Yes Status: Chronic Continue CCB, BOYD-I (Elevated creatinine appears at upper limits of patient's prior baseline), and Clonidine. Patient also on diuretic therapy with Furosemide. (4) Hx TIA/stroke w/o resid: Current visit: Yes Status: Resolved Appears to be on Dual Antiplatelet therapy with ASA and Clopidogrel. Patient reports being started on Clopidogrel following his last CVA while on aspirin therapy - unsure if this was for secondary prevention, and if so if he would benefit from DAPT vs. Clopidogrel alone. Currently with plavix on hold prior to procedure. Will also ensure daily PPI therapy for GI Protection. (5) Diabetes: Current visit: Yes Status: Chronic Hold Metformin, initiate ISS, and maintain on ADA diet. (6) DVT prophylaxis: Current visit: Yes Status: Acute SCDs. Chemical DVT Prophylaxis on hold until after surgery is completed. Subjective Interval history since last seen: 78-year-old man with a prior history of obesity and chronic venous stasis with ulcers, admitted from [facility] Emergency Department on 03/13 with a diagnosis of RLE Cellulitis. Mr. Iniguez has a past Medical History significant for TIA/CVA, DM, SAMMI, HTN, Dyslipidemia, Obesity, COPD, GERD, and Gout. He also has a history of Chronic Venous Stasis with poorly healing LE Ulcer, for which he had been following chronically with [facility] Wound care and now with Dr. Christianson. He has also undergone evaluation by [facility] Vascular surgery, with apparent lack of surgical benefit. The patient reported worsening symptoms over the last week, including enlargement of the wound, worsening drainage, and surrounding erythema. He was referred by Dr. Christianson to the ED for further evaluation. Labwork was significant for an elevated ESR and CRP, and signs of worsening localized infection. He was referred for admission for further evaluation and treatment. This morning Mr. Iniguez reports slight improvement in his pain and symptoms. His mildly elevated potassium has normalized by morning labs. He was also evaluated by Dr. Christianson, with plans for debridement in the OR tomorrow. No overnight events reported. Remains afebrile. Exam Narrative Exam Narrative: General: Patient appears comfortable, AAOX3, NAD Neck: Supple CV: Regular, nontachycardic, S1S2, 3/6 LLSB murmur appreciated. Pulmonary: Clear to auscultation bilaterally, no crackles, wheezing, or rhonchi Abdomen: + Bowel Sounds, soft, nontender, nondistended. Obese in contour. Vascular: Chronic appearing b/l lower extremity edema. RLE with wrap in place. Psych: Normal mood and affect. Objective Objective Clinical Data: Abnormal lab results 03/13/19 03/13/19 03/13/19 Range/Units 16:52 16:52 16:52 WBC (4.4-10.8) k/cumm RBC (4.50-6.00) m/cumm Hgb (13.5-17.5) g/dL Hct (40.0-50.0) % MCHC (32.0-36.0) g/dL Absolute Neutrophils (1.2-6.7) k/cumm Absolute Monocytes (0.11-0.7) k/cumm ESR 73 H (1-20) MM/HR Potassium 5.8 H (3.5-5.1) mmol/L Carbon Dioxide (21.0-32.0) mmol/L Anion Gap (3-11) mmol/L BUN 46 H (7-18) mg/dL Creatinine 1.78 H (0.70-1.30) mg/dL Glucose 238 H (70-100) mg/dL Hemoglobin A1c (4.5-6.2) % AST 10 L (15-37) U/L Alkaline Phosphatase 143 H (46-116) U/L C-Reactive Protein 7.51 H (0.0-0.3) mg/dL Albumin 3.3 L (3.4-5.0) g/dL 03/14/19 03/14/19 03/14/19 Range/Units 06:55 06:55 06:55 WBC 10.94 H (4.4-10.8) k/cumm RBC 4.02 L (4.50-6.00) m/cumm Hgb 11.5 L (13.5-17.5) g/dL Hct 36.3 L (40.0-50.0) % MCHC 31.7 L (32.0-36.0) g/dL Absolute Neutrophils 8.48 H (1.2-6.7) k/cumm Absolute Monocytes 0.82 H (0.11-0.7) k/cumm ESR (1-20) MM/HR Potassium (3.5-5.1) mmol/L Carbon Dioxide 20.0 L (21.0-32.0) mmol/L Anion Gap 13.0 H (3-11) mmol/L BUN 36 H D (7-18) mg/dL Creatinine 1.53 H (0.70-1.30) mg/dL Glucose 213 H (70-100) mg/dL Hemoglobin A1c 8.7 H (4.5-6.2) % AST (15-37) U/L Alkaline Phosphatase (46-116) U/L C-Reactive Protein (0.0-0.3) mg/dL Albumin (3.4-5.0) g/dL Vital Signs Temperature 36.4 C L 03/14/19 14:54 Temperature Source Tympanic 03/14/19 14:54 Pulse 73 03/14/19 14:54 Pulse Rhythm Regular 03/14/19 16:15 Respiratory Rate 18 03/14/19 14:54 Respiratory Effort Non-Labored 03/14/19 16:15 Respiratory Depth Normal 03/14/19 16:15 Respiratory Pattern Normal 03/14/19 16:15 Blood Pressure 145/82 H 03/14/19 14:54 Blood Pressure Position Supine 03/13/19 16:26 Pulse Oximetry 98 03/14/19 14:54 Oxygen Delivery Method Room Air 03/14/19 14:54 Oxygen Flow Rate 0 03/14/19 14:54 Pain Level 2 03/14/19 15:36 Intake & Output 03/13/19 03/14/19 03/14/19 23:59 11:59 23:59 Intake Total 100 / 100 1540 / 2080 540 / 2080 Balance 100 / 100 1540 / 0 540 / 2080 Weight 129.3 kg 128.9 kg Intake: IV 100 / 100 1100 / 1400 300 / 1400 Oral 440 / 680 240 / 680 Other: Urine Appearance Clear Clear Clear Comment Patient voided in toilet. Uknown amount. voids in toilet independantly Voiding Methods Toilet Laboratory Results WBC 10.94 k/cumm (4.4-10.8) H 03/14/19 06:55 RBC 4.02 m/cumm (4.50-6.00) L 03/14/19 06:55 Hgb 11.5 g/dL (13.5-17.5) L 03/14/19 06:55 Hct 36.3 % (40.0-50.0) L 03/14/19 06:55 MCV 90.3 fL (80-95) 03/14/19 06:55 MCH 28.6 pg (27.0-33.0) 03/14/19 06:55 MCHC 31.7 g/dL (32.0-36.0) L 03/14/19 06:55 RDW 13.5 % (11.8-14.1) 03/14/19 06:55 Plt Count 272 x1000/uL (130-400) 03/14/19 06:55 MPV 9.7 fL (8.0-11.0) 03/14/19 06:55 Immature Gran % 0.3 03/14/19 06:55 Neutrophils % 77.5 03/14/19 06:55 Lymphocytes % 11.9 03/14/19 06:55 Monocytes % 7.5 03/14/19 06:55 Eosinophils % 2.4 03/14/19 06:55 Basophils % 0.4 03/14/19 06:55 Absolute Neutrophils 8.48 k/cumm (1.2-6.7) H 03/14/19 06:55 Absolute Lymphocytes 1.30 k/cumm (1.2-3.4) 03/14/19 06:55 Absolute Monocytes 0.82 k/cumm (0.11-0.7) H 03/14/19 06:55 Absolute Eosinophils 0.26 k/cumm (0.0-0.7) 03/14/19 06:55 Absolute Basophils 0.04 k/cumm (0.0-0.2) 03/14/19 06:55 ESR 73 MM/HR (1-20) H 03/13/19 16:52 Sodium 140 mmol/L (136-145) 03/14/19 06:55 Potassium 4.7 mmol/L (3.5-5.1) 03/14/19 06:55 Chloride 107 mmol/L (98-107) 03/14/19 06:55 Carbon Dioxide 20.0 mmol/L (21.0-32.0) L 03/14/19 06:55 Anion Gap 13.0 mmol/L (3-11) H 03/14/19 06:55 BUN 36 mg/dL (7-18) H D 03/14/19 06:55 Creatinine 1.53 mg/dL (0.70-1.30) H 03/14/19 06:55 Estimated GFR/1.73 m2 44.24 (mL/min/1.73m2) 03/14/19 06:55 Glucose 213 mg/dL (70-100) H 03/14/19 06:55 Hemoglobin A1c 8.7 % (4.5-6.2) H 03/14/19 06:55 Lactate 1.4 mmol/l (0.6-1.4) 03/13/19 16:52 Calcium 8.7 mg/dL (8.5-10.1) 03/14/19 06:55 Magnesium 1.9 mg/dL (1.8-2.4) 03/13/19 16:52 Total Bilirubin 0.5 mg/dL (0.2-1.0) 03/13/19 16:52 AST 10 U/L (15-37) L 03/13/19 16:52 ALT 13 U/L (12-78) 03/13/19 16:52 Alkaline Phosphatase 143 U/L (46-116) H 03/13/19 16:52 C-Reactive Protein 7.51 mg/dL (0.0-0.3) H 03/13/19 16:52 Total Protein 7.5 g/dL (6.4-8.2) 03/13/19 16:52 Albumin 3.3 g/dL (3.4-5.0) L 03/13/19 16:52 Procalcitonin 0.1 ng/mL 03/13/19 16:52
[2019-03-14] MEDS: Atorvastatin 40 MG TAB PO (20:09)
[2019-03-15] VITALS (13 sets, daily range): BP systolic 117–198; BP diastolic 47–76; PULSE 65–90; RESP 16–19; TEMP 36–37.6; O2SAT 95–100
[2019-03-15] MEDS: PIPERACILLIN/TAZO 2.25 GM in Normal Saline 50 ML IVPB ×4 (02:25→19:38)
[2019-03-15] MEDS: Normal Saline Flush 10 ML SYR IVP (08:41)
[2019-03-15] MEDS: oxyCODONE 5 MG TAB PO ×3 (08:41→21:35)
[2019-03-15] MEDS: Allopurinol 100 MG TAB PO (08:42)
[2019-03-15] MEDS: Esomeprazole 40 MG CAPCR PO (08:42)
[2019-03-15] MEDS: Lisinopril 10 MG TAB 30 MG PO (08:42)
[2019-03-15] MEDS: amLODIPine 10 MG TAB PO (08:42)
[2019-03-15] MEDS: cloNIDine 0.1 MG TAB 0.3 MG PO ×2 (08:42→19:23)
[2019-03-15] MEDS: Citalopram 10 MG TAB PO (08:42)
[2019-03-15] MEDS: Furosemide 40 MG TAB PO (08:42)
[2019-03-15] MEDS: Acetaminophen 325 MG TAB PO ×2 (08:43→19:23)
[2019-03-15] MEDS: Tiotropium Bromide-Respimat 10 PUFF INH IH (09:13)
[2019-03-15] MEDS: Budesonide/Formoterol 160/4.5 6 GM 60 PUFF INH IH ×2 (09:15→19:52)
[2019-03-15 11:13] LABS: Abs Immature Grans 0.05 k/cumm (0.0-0.09); Absolute Basophil Count 0.05 k/cumm (0.0-0.2); Absolute Eosinophil Count 0.26 k/cumm (0.0-0.7); Absolute Lymphocyte Count 1.26 k/cumm (1.2-3.4); Absolute Monocyte Count 0.84 k/cumm (0.11-0.7); Absolute Neutrophil Count 8.48 k/cumm (1.2-6.7); Basophils % 0.5; Eosinophils % 2.4; HGB 11.7 g/dL (13.5-17.5); Immature Grans % 0.5; Lymphocytes % 11.5; Mean Corp. HGB Concentration 32.5 g/dL (32.0-36.0); Mean Corpuscular Hemoglobin 29.3 pg (27.0-33.0); Mean Corpuscular Volume 90.2 fL (80-95); Monocytes % 7.7; Neutrophils % 77.4; Platelet Count 265 x1000/uL (130-400); RBC 3.99 m/cumm (4.50-6.00); RBC Distribution Width 13.4 % (11.8-14.1); White Blood Cell Count 10.96 k/cumm (4.4-10.8)
[2019-03-15 11:49] LABS: Magnesium 1.7 mg/dL (1.8-2.4)
--- NOTE | 2019-03-15 12:46 | PDOC.CMPRO ---
Care Management Progress Note S/O: Dionna was lying in bed, surrounded by family. He was readying to go to the OR for debridement of wound. CM continues to follow. A: 78 year old male admitted to [facility] P: Dionna was brought to the OR today for debridement of his wound. He will continue to be closely monitored and CM will follow and support discharge planning considerations.
[2019-03-15] MEDS: Lactated Ringers 1,000 ML 80 ML IV ×2 (14:20→16:17)
[2019-03-15] MEDS: Bupivacaine 0.5% Pres-Free 30 ML VIAL (14:36)
[2019-03-15] MEDS: Lidocaine 1% Multi-Dose 50 ML VIAL (14:36)
--- NOTE | 2019-03-15 16:38 | W.PM.PROGNOT ---
Date of Service Date of service: 03/15/19 Time of Service: 10:38 Assessment and Plan (1) Cellulitis: Current visit: Yes Status: Acute Ccellulitic changes surrounding non-healing, necrotic appearing ulcers. Patient was initiated on Pip-Tazo, with Vancomycin added for treatment of a moderate diabetic lower extremity infection - now day #2. Await operative and blood cultures. (2) Venous stasis ulcer: Current visit: Yes Status: Chronic Under the care of Dr. Christianson at local wound center. (3) HTN (hypertension): Current visit: Yes Status: Chronic Continue CCB, BOYD-I (Elevated creatinine appears at upper limits of patient's prior baseline), and Clonidine. Patient also on diuretic therapy with Furosemide. (4) Hx TIA/stroke w/o resid: Current visit: Yes Status: Resolved Appears to be on Dual Antiplatelet therapy with ASA and Clopidogrel. Patient reports being started on Clopidogrel following his last CVA while on aspirin therapy - unsure if this was for secondary prevention, and if so if he would benefit from DAPT vs. Clopidogrel alone. Currently with plavix on hold prior to procedure. Will also ensure daily PPI therapy for GI Protection. (5) Diabetes: Current visit: Yes Status: Chronic Hold Metformin, initiate ISS, and maintain on ADA diet. (6) DVT prophylaxis: Current visit: Yes Status: Acute SCDs. Chemical DVT Prophylaxis on hold until after surgery is completed. Subjective Interval history since last seen: 78-year-old man with a prior history of obesity and chronic venous stasis with ulcers, admitted from [facility] Emergency Department on 03/13 with a diagnosis of RLE Cellulitis. Mr. Iniguez has a past Medical History significant for TIA/CVA, DM, SAMMI, HTN, Dyslipidemia, Obesity, COPD, GERD, and Gout. He also has a history of Chronic Venous Stasis with poorly healing LE Ulcer, for which he had been following chronically with [facility] Wound care and now with Dr. Christianson. He has also undergone evaluation by [facility] Vascular surgery, with apparent lack of surgical benefit. The patient reported worsening symptoms over the last week, including enlargement of the wound, worsening drainage, and surrounding erythema. He was referred by Dr. Christianson to the ED for further evaluation. Labwork was significant for an elevated ESR and CRP, and signs of worsening localized infection. He was referred for admission for further evaluation and treatment. This morning Mr. Iniguez reports continued improvement in his pain and symptoms, including decrease in edema of the effected limb. He was also evaluated by Dr. Christianson, with plans for debridement in the OR later today. No overnight events reported. Remains afebrile. Exam Narrative Exam Narrative: General: Patient appears comfortable, AAOX3, NAD Neck: Supple CV: Regular, nontachycardic, S1S2, 3/6 LLSB murmur appreciated. Pulmonary: Clear to auscultation bilaterally, no crackles, wheezing, or rhonchi Abdomen: + Bowel Sounds, soft, nontender, nondistended. Obese in contour. Vascular: Chronic appearing b/l lower extremity edema. RLE with wrap in place. Psych: Normal mood and affect. Objective Objective Clinical Data: Abnormal lab results 03/15/19 03/15/19 Range/Units 11:05 11:05 WBC 10.96 H (4.4-10.8) k/cumm RBC 3.99 L (4.50-6.00) m/cumm Hgb 11.7 L (13.5-17.5) g/dL Hct 36.0 L (40.0-50.0) % Absolute Neutrophils 8.48 H (1.2-6.7) k/cumm Absolute Monocytes 0.84 H (0.11-0.7) k/cumm Magnesium 1.7 L (1.8-2.4) mg/dL Vital Signs Temperature 36.7 C 03/15/19 16:17 Temperature Source Temporal Artery Scan 03/15/19 16:17 Pulse 66 03/15/19 16:17 Pulse Rhythm Regular 03/15/19 16:08 Respiratory Rate 16 03/15/19 16:17 Respiratory Effort Non-Labored 03/15/19 16:08 Respiratory Depth Normal 03/15/19 16:08 Respiratory Pattern Normal 03/15/19 16:08 Blood Pressure 131/74 03/15/19 16:17 Blood Pressure Position Supine 03/13/19 16:26 Pulse Oximetry 97 03/15/19 16:17 Respiratory End-tidal CO2 31 03/15/19 15:28 Oxygen Delivery Method Room Air 03/15/19 16:17 Oxygen Flow Rate 0 03/15/19 16:17 Pain Level 0 03/15/19 16:17 Intake & Output 03/14/19 03/15/19 03/15/19 23:59 11:59 23:59 Intake Total 830 / 2370 110 / 666 556 / 666 Balance 830 / 2370 110 / 666 556 / 666 Weight 129.2 kg Intake: IV 350 / 1450 110 / 666 556 / 666 Oral 480 / 920 Other: Urine Appearance Clear Clear Comment pt voids independently in toilet per pt report; urine not assessed at this time Emesis Description None Voiding Methods Toilet Toilet Toilet Laboratory Results WBC 10.96 k/cumm (4.4-10.8) H 03/15/19 11:05 RBC 3.99 m/cumm (4.50-6.00) L 03/15/19 11:05 Hgb 11.7 g/dL (13.5-17.5) L 03/15/19 11:05 Hct 36.0 % (40.0-50.0) L 03/15/19 11:05 MCV 90.2 fL (80-95) 03/15/19 11:05 MCH 29.3 pg (27.0-33.0) 03/15/19 11:05 MCHC 32.5 g/dL (32.0-36.0) 03/15/19 11:05 RDW 13.4 % (11.8-14.1) 03/15/19 11:05 Plt Count 265 x1000/uL (130-400) 03/15/19 11:05 MPV 9.0 fL (8.0-11.0) 03/15/19 11:05 Immature Gran % 0.5 03/15/19 11:05 Neutrophils % 77.4 03/15/19 11:05 Lymphocytes % 11.5 03/15/19 11:05 Monocytes % 7.7 03/15/19 11:05 Eosinophils % 2.4 03/15/19 11:05 Basophils % 0.5 03/15/19 11:05 Absolute Neutrophils 8.48 k/cumm (1.2-6.7) H 03/15/19 11:05 Absolute Lymphocytes 1.26 k/cumm (1.2-3.4) 03/15/19 11:05 Absolute Monocytes 0.84 k/cumm (0.11-0.7) H 03/15/19 11:05 Absolute Eosinophils 0.26 k/cumm (0.0-0.7) 03/15/19 11:05 Absolute Basophils 0.05 k/cumm (0.0-0.2) 03/15/19 11:05 ESR 73 MM/HR (1-20) H 03/13/19 16:52 Sodium 140 mmol/L (136-145) 03/14/19 06:55 Potassium 4.7 mmol/L (3.5-5.1) 03/14/19 06:55 Chloride 107 mmol/L (98-107) 03/14/19 06:55 Carbon Dioxide 20.0 mmol/L (21.0-32.0) L 03/14/19 06:55 Anion Gap 13.0 mmol/L (3-11) H 03/14/19 06:55 BUN 36 mg/dL (7-18) H D 03/14/19 06:55 Creatinine 1.53 mg/dL (0.70-1.30) H 03/14/19 06:55 Estimated GFR/1.73 m2 44.24 (mL/min/1.73m2) 03/14/19 06:55 Glucose 213 mg/dL (70-100) H 03/14/19 06:55 Hemoglobin A1c 8.7 % (4.5-6.2) H 03/14/19 06:55 Lactate 1.4 mmol/l (0.6-1.4) 03/13/19 16:52 Calcium 8.7 mg/dL (8.5-10.1) 03/14/19 06:55 Magnesium 1.7 mg/dL (1.8-2.4) L 03/15/19 11:05 Total Bilirubin 0.5 mg/dL (0.2-1.0) 03/13/19 16:52 AST 10 U/L (15-37) L 03/13/19 16:52 ALT 13 U/L (12-78) 03/13/19 16:52 Alkaline Phosphatase 143 U/L (46-116) H 03/13/19 16:52 C-Reactive Protein 7.51 mg/dL (0.0-0.3) H 03/13/19 16:52 Total Protein 7.5 g/dL (6.4-8.2) 03/13/19 16:52 Albumin 3.3 g/dL (3.4-5.0) L 03/13/19 16:52 Procalcitonin 0.1 ng/mL 03/13/19 16:52
--- NOTE | 2019-03-15 16:41 | PGE_ITS ---
Date of Service Date of service: 03/15/19 Time of Service: 10:38 Assessment and Plan (1) Cellulitis: Current visit: Yes Status: Acute Ccellulitic changes surrounding non-healing, necrotic appearing ulcers. Patient was initiated on Pip-Tazo, with Vancomycin added for treatment of a moderate diabetic lower extremity infection - now day #2. Await operative and blood cultures. (2) Venous stasis ulcer: Current visit: Yes Status: Chronic Under the care of Dr. Christianson at local wound center. (3) HTN (hypertension): Current visit: Yes Status: Chronic Continue CCB, BOYD-I (Elevated creatinine appears at upper limits of patient's prior baseline), and Clonidine. Patient also on diuretic therapy with Furosemide. (4) Hx TIA/stroke w/o resid: Current visit: Yes Status: Resolved Appears to be on Dual Antiplatelet therapy with ASA and Clopidogrel. Patient reports being started on Clopidogrel following his last CVA while on aspirin therapy - unsure if this was for secondary prevention, and if so if he would benefit from DAPT vs. Clopidogrel alone. Currently with plavix on hold prior to procedure. Will also ensure daily PPI therapy for GI Protection. (5) Diabetes: Current visit: Yes Status: Chronic Hold Metformin, initiate ISS, and maintain on ADA diet. (6) DVT prophylaxis: Current visit: Yes Status: Acute SCDs. Chemical DVT Prophylaxis on hold until after surgery is completed. Subjective Interval history since last seen: 78-year-old man with a prior history of obes ity and chronic venous stasis with ulcers, admitted from [facility] Emergency Department on 03/13 with a diagnosis of RLE Cellulitis. Mr. Iniguez has a past Medical History significant for TIA/CVA, DM, SAMMI, HTN, Dyslipidemia, Obesity, COPD, GERD, and Gout. He also has a history of Chronic Venous Stasis with poorly healing LE Ulcer, for which he had been following chronically with [facility] Wound care and now with Dr. Christianson. He has also undergone evaluation by [facility] Vascular surgery, with apparent lack of surgical benefit. The patient reported worsening symptoms over the last week, including enlargement of the wound, worsening drainage, and surrounding erythema. He was referred by Dr. Christianson to the ED for further evaluation. Labwork was significant for an elevated ESR and CRP, and signs of worsening localized infection. He was referred for admission for further evaluation and treatment. This morning Mr. Iniguez reports continued improvement in his pain and symptoms, including decrease in edema of the effected limb. He was also evaluated by Dr. Christianson, with plans for debridement in the OR later today. No overnight events reported. Remains afebrile. Exam Narrative Exam Narrative: General: Patient appears comfortable, AAOX3, NAD Neck: Supple CV: Regular, nontachycardic, S1S2, 3/6 LLSB murmur appreciated. Pulmonary: Clear to auscultation bilaterally, no crackles, wheezing, or rhonchi Abdomen: + Bowel Sounds, soft, nontender, nondistended. Obese in contour. Vascular: Chronic appearing b/l lower extremity edema. RLE with wrap in place. Psych: Normal mood and affect. Objective Objective Clinical Data: Abnormal lab results 03/15/19 03/15/19 Range/Units 11:05 11:05 WBC 10.96 H (4.4-10.8) k/cumm RBC 3.99 L (4.50-6.00) m/cumm Hgb 11.7 L (13.5-17.5) g/dL Hct 36.0 L (40.0-50.0) % Absolute Neutrophils 8.48 H (1.2-6.7) k/cumm Absolute Monocytes 0.84 H (0.11-0.7) k/cumm Magnesium 1.7 L (1.8-2.4) mg/dL Vital Signs Temperature 36.7 C 03/15/19 16:17 Temperature Source Temporal Artery Scan 03/15/19 16:17 Pulse 66 03/15/19 16:17 Pulse Rhythm Regular 03/15/19 16:08 Respiratory Rate 16 03/15/19 16:17 Respiratory Effort Non-Labored 03/15/19 16:08 Respiratory Depth Normal 03/15/19 16:08 Respiratory Pattern Normal 03/15/19 16:08 Blood Pressure 131/74 03/15/19 16:17 Blood Pressure Position Supine 03/13/19 16:26 Pulse Oximetry 97 03/15/19 16:17 Respiratory End-tidal CO2 31 03/15/19 15:28 Oxygen Delivery Method Room Air 03/15/19 16:17 Oxygen Flow Rate 0 03/15/19 16:17 Pain Level 0 03/15/19 16:17 Intake & Output 03/14/19 03/15/19 03/15/19 23:59 11:59 23:59 Intake Total 830 / 2370 110 / 666 556 / 666 Balance 830 / 2370 110 / 666 556 / 666 Weight 129.2 kg Intake: IV 350 / 1450 110 / 666 556 / 666 Oral 480 / 920 Other: Urine Appearance Clear Clear Comment pt voids independently in toilet per pt report; urine not assessed at this time Emesis Description None Voiding Methods Toilet Toilet Toilet Laboratory Results WBC 10.96 k/cumm (4.4-10.8) H 03/15/19 11:05 RBC 3.99 m/cumm (4.50-6.00) L 03/15/19 11:05 Hgb 11.7 g/dL (13.5-17.5) L 03/15/19 11:05 Hct 36.0 % (40.0-50.0) L 03/15/19 11:05 MCV 90.2 fL (80-95) 03/15/19 11:05 MCH 29.3 pg (27.0-33.0) 03/15/19 11:05 MCHC 32.5 g/dL (32.0-36.0) 03/15/19 11:05 RDW 13.4 % (11.8-14.1) 03/15/19 11:05 Plt Count 265 x1000/uL (130-400) 03/15/19 11:05 MPV 9.0 fL (8.0-11.0) 03/15/19 11:05 Immature Gran % 0.5 03/15/19 11:05 Neutrophils % 77.4 03/15/19 11:05 Lymphocytes % 11.5 03/15/19 11:05 Monocytes % 7.7 03/15/19 11:05 Eosinophils % 2.4 03/15/19 11:05 Basophils % 0.5 03/15/19 11:05 Absolute Neutrophils 8.48 k/cumm (1.2-6.7) H 03/15/19 11:05 Absolute Lymphocytes 1.26 k/cumm (1.2-3.4) 03/15/19 11:05 Absolute Monocytes 0.84 k/cumm (0.11-0.7) H 03/15/19 11:05 Absolute Eosinophils 0.26 k/cumm (0.0-0.7) 03/15/19 11:05 Absolute Basophils 0.05 k/cumm (0.0-0.2) 03/15/19 11:05 ESR 73 MM/HR (1-20) H 03/13/19 16:52 Sodium 140 mmol/L (136-145) 03/14/19 06:55 Potassium 4.7 mmol/L (3.5-5.1) 03/14/19 06:55 Chloride 107 mmol/L (98-107) 03/14/19 06:55 Carbon Dioxide 20.0 mmol/L (21.0-32.0) L 03/14/19 06:55 Anion Gap 13.0 mmol/L (3-11) H 03/14/19 06:55 BUN 36 mg/dL (7-18) H D 03/14/19 06:55 Creatinine 1.53 mg/dL (0.70-1.30) H 03/14/19 06:55 Estimated GFR/1.73 m2 44.24 (mL/min/1.73m2) 03/14/19 06:55 Glucose 213 mg/dL (70-100) H 03/14/19 06:55 Hemoglobin A1c 8.7 % (4.5-6.2) H 03/14/19 06:55 Lactate 1.4 mmol/l (0.6-1.4) 03/13/19 16:52 Calcium 8.7 mg/dL (8.5-10.1) 03/14/19 06:55 Magnesium 1.7 mg/dL (1.8-2.4) L 03/15/19 11:05 Total Bilirubin 0.5 mg/dL (0.2-1.0) 03/13/19 16:52 AST 10 U/L (15-37) L 03/13/19 16:52 ALT 13 U/L (12-78) 03/13/19 16:52 Alkaline Phosphatase 143 U/L (46-116) H 03/13/19 16:52 C-Reactive Protein 7.51 mg/dL (0.0-0.3) H 03/13/19 16:52 Total Protein 7.5 g/dL (6.4-8.2) 03/13/19 16:52 Albumin 3.3 g/dL (3.4-5.0) L 03/13/19 16:52 Procalcitonin 0.1 ng/mL 03/13/19 16:52
[2019-03-15] MEDS: Insulin Aspart 300 UNITS/3 ML PEN SC (17:13)
[2019-03-15] MEDS: Atorvastatin 40 MG TAB PO (19:24)
[2019-03-15] MEDS: traMADol 50 MG TAB PO (20:28)
[2019-03-16] VITALS (7 sets, daily range): BP systolic 120–153; BP diastolic 68–83; PULSE 66–73; RESP 16–20; TEMP 36.4–36.8; O2SAT 97–98
[2019-03-16] MEDS: PIPERACILLIN/TAZO 2.25 GM in Normal Saline 50 ML IVPB ×2 (02:23→08:40)
[2019-03-16] MEDS: Lactated Ringers 1,000 ML 80 ML IV (03:08)
[2019-03-16 07:31] LABS: Anion Gap 9.8 mmol/L (3-11); BUN 19 mg/dL (7-18); CO2 24.2 mmol/L (21.0-32.0); CREATININE 1.25 mg/dL (0.70-1.30); Calcium 8.5 mg/dL (8.5-10.1); Chloride 104 mmol/L (98-107); Estimated GFR 55.86 (mL/min/1.73m2); Glucose 193 mg/dL (70-100); Magnesium 1.7 mg/dL (1.8-2.4); Potassium 4.5 mmol/L (3.5-5.1); Sodium 138 mmol/L (136-145)
[2019-03-16] MEDS: Acetaminophen 325 MG TAB PO ×2 (07:47→12:13)
[2019-03-16] MEDS: oxyCODONE 5 MG TAB PO ×3 (07:48→16:31)
[2019-03-16] MEDS: Tiotropium Bromide-Respimat 10 PUFF INH IH (07:56)
[2019-03-16] MEDS: Budesonide/Formoterol 160/4.5 6 GM 60 PUFF INH IH ×2 (07:57→19:25)
--- NOTE | 2019-03-16 08:02 | ROE_ITS ---
REPORT OF OPERATIVE PROCEDURE DATE OF SURGERY March 15, 2019 PREOPERATIVE DIAGNOSES Venous stasis ulceration with cellulitis, right lower extremity. POSTOPERATIVE DIAGNOSES Venous stasis ulceration with cellulitis, right lower extremity. PROCEDURE Debridement of wound right leg to fascia. WOUND SIZE 6.5 cm x 4 cm. SURGEON Allan Christianson DPM OPERATIVE INDICATIONS A 78-year-old male with multiple comorbidities including venous stasis disease, hypertension, diabete s, obesity, with failed outpatient management of the venous stasis wound with subsequent necrosis, er ythema, cellulitis requiring hospital admission. He had been on bedrest for 48 hours with IV antibiot ics and is being brought to the Operating Room for debridement of necrotic tissue. The debridement di d go to fascia. The patient understands the chronicity of this wound, the likelihood of multiple d?br idement and ongoing chronic care for a difficult wound to resolve. REPORT OF OPERATION Dionna was brought to the Operative Suite, general anesthesia was obtained utilizing LMA, local bloc k of the wound was then performed utilizing 17 cc of a 50/50 mixture of 1% lidocaine plain, 0.5% bupi vacaine plain in a field fashion. The right lower extremity was prepped and draped in the usual sterile podiatric fashion. Attention w as directed to the wound, which is located just above the lateral malleolus. The wound is noted to man ve a greenish black heavy eschar throughout most of the wound, particularly the distal, medial and la teral aspects of the wound with a strong odor noted. No estela purulence however was noted within the tissue. With a #15-scapel and a pickup, sharp debridement was performed excising all of this necrotic tissue. Rongeur was then used to remove the necrosis down onto and just through the fascia, as well as aroun d the skin margins. A small pocket was noted at the distal, medial aspect of the incision going appro ximately 0.5 cm in width and about 1 cm distal, but there was no fluid oozing. No signs of purulence. The wound was further treated with curettage removing all necrotic tissue, getting down to what appe ared to be viable tissue. He had reasonable bleeding around the wound edges. The wound was copiously irrigated. Bleeding was controlled through compression. Once hemostasis was obtained and I was comfor table that the wound was adequately debrided, a wound VAC was applied utilizing the [employer] system. Press ure was 125 continuous pressure. General anesthetic was reversed and Dionna arouse without difficult y. He will have a short stay in PACU and then return to the floor when he is stable. He will remain i nhouse for continued IV antibiotics, bedrest.
[2019-03-16] MEDS: Insulin Aspart 300 UNITS/3 ML PEN SC ×3 (08:39→16:57)
[2019-03-16] MEDS: Aspirin E.C. 81 MG TABEC PO (08:41)
[2019-03-16] MEDS: Citalopram 10 MG TAB PO (08:41)
[2019-03-16] MEDS: Lisinopril 10 MG TAB 30 MG PO (08:41)
[2019-03-16] MEDS: Allopurinol 100 MG TAB PO (08:41)
[2019-03-16] MEDS: Furosemide 40 MG TAB PO (08:41)
[2019-03-16] MEDS: cloNIDine 0.1 MG TAB 0.3 MG PO ×3 (08:41→19:27)
[2019-03-16] MEDS: amLODIPine 10 MG TAB PO (08:41)
[2019-03-16] MEDS: Esomeprazole 40 MG CAPCR PO (08:42)
[2019-03-16 08:47] LABS: Abs Immature Grans 0.04 k/cumm (0.0-0.09); Absolute Basophil Count 0.05 k/cumm (0.0-0.2); Absolute Eosinophil Count 0.41 k/cumm (0.0-0.7); Absolute Lymphocyte Count 1.63 k/cumm (1.2-3.4); Absolute Monocyte Count 0.97 k/cumm (0.11-0.7); Absolute Neutrophil Count 8.29 k/cumm (1.2-6.7); Basophils % 0.4; Eosinophils % 3.6; HCT 37.3 % (40.0-50.0); Immature Grans % 0.4; Lymphocytes % 14.3; Mean Corp. HGB Concentration 32.2 g/dL (32.0-36.0); Mean Corpuscular Hemoglobin 29.2 pg (27.0-33.0); Mean Corpuscular Volume 90.8 fL (80-95); Mean Platelet Volume 9.5 fL (8.0-11.0); Monocytes % 8.5; Neutrophils % 72.8; Platelet Count 283 x1000/uL (130-400); RBC 4.11 m/cumm (4.50-6.00); RBC Distribution Width 13.3 % (11.8-14.1); White Blood Cell Count 11.39 k/cumm (4.4-10.8)
--- NOTE | 2019-03-16 08:47 | W.PM.PROGNOT ---
Date of Service Date of service: 03/16/19 Time of Service: 08:48 Subjective Patient reports: pain is less Exam Narrative Exam Narrative: Dionna is seen at bedside. He is resting comfortably. Pain is being well managed with Tylenol and oxycodone. He denies any feelings of fever chills or malaise. Vitals BP is 153/83, pulse 73 respiration 16 temp 36.4 O2 sat 98% Morning labs WBCs 11.39 hemoglobin is 12 hematocrit 37.3 RBCs 4.11 BUN 19 glucose 193 The right lower extremity wound VAC is in place. It appears to be functioning well. Unit is set at 125 mmHg continuous suction. His foot is warm to the touch good capillary return no neurological deficits were noted at this time. He remains on IV vancomycin and Zosyn. Assessment 24 hours status post debridement venous stasis necrotic wound to the right lower extremity on wound VAC and IV antibiotics as above Plan: I discussed the case with Dr. Amaya, he will transition dionna to a combination of p.o. meds today, I plan on changing the wound VAC tomorrow and if the wound and leg appear with marked improvement we will anticipate getting him home with continued management on p.o. meds and wound VAC care. Whether this will be done through home health assistance so he will come into the hospital for the wound VAC wound care remains to be determined. Objective Objective Clinical Data: Abnormal lab results 03/15/19 03/15/19 03/16/19 Range/Units 11:05 11:05 07:01 WBC 10.96 H (4.4-10.8) k/cumm RBC 3.99 L (4.50-6.00) m/cumm Hgb 11.7 L (13.5-17.5) g/dL Hct 36.0 L (40.0-50.0) % Absolute Neutrophils 8.48 H (1.2-6.7) k/cumm Absolute Monocytes 0.84 H (0.11-0.7) k/cumm BUN 19 H D (7-18) mg/dL Glucose 193 H (70-100) mg/dL Magnesium 1.7 L 1.7 L (1.8-2.4) mg/dL Vital Signs Temperature 36.4 C L 03/16/19 07:30 Temperature Source Temporal Artery Scan 03/16/19 07:30 Pulse 73 03/16/19 07:30 Pulse Rhythm Regular 03/15/19 19:20 Respiratory Rate 16 03/16/19 07:30 Respiratory Effort Non-Labored 03/15/19 19:20 Respiratory Depth Normal 03/15/19 19:20 Respiratory Pattern Normal 03/15/19 19:20 Blood Pressure 153/83 H 03/16/19 07:30 Blood Pressure Position Supine 03/13/19 16:26 Pulse Oximetry 98 03/16/19 07:30 Respiratory End-tidal CO2 31 03/15/19 15:28 Oxygen Delivery Method Room Air 03/16/19 07:30 Oxygen Flow Rate 0 03/16/19 07:30 Pain Level 8 03/16/19 07:48 Intake & Output 03/15/19 03/16/19 03/16/19 18:59 06:59 18:59 Intake Total 866 / 2234 1368 / 2234 Output Total 600 / 600 Balance 866 / 1634 768 / 1634 Intake: IV 866 / 1834 968 / 1834 Oral 400 / 400 Output: Output, Wound Vac (mls) 0 / 0 Urine 600 / 600 Other: Urine Color Yellow Urine Appearance Clear Clear Urine Odor Normal Comment per pt report; urine not assessed at this time urine not seen however pt voiced he used a urinal Emesis Description None Voiding Methods Toilet Urinal Laboratory Results WBC 10.96 k/cumm (4.4-10.8) H 03/15/19 11:05 RBC 3.99 m/cumm (4.50-6.00) L 03/15/19 11:05 Hgb 11.7 g/dL (13.5-17.5) L 03/15/19 11:05 Hct 36.0 % (40.0-50.0) L 03/15/19 11:05 MCV 90.2 fL (80-95) 03/15/19 11:05 MCH 29.3 pg (27.0-33.0) 03/15/19 11:05 MCHC 32.5 g/dL (32.0-36.0) 03/15/19 11:05 RDW 13.4 % (11.8-14.1) 03/15/19 11:05 Plt Count 265 x1000/uL (130-400) 03/15/19 11:05 MPV 9.0 fL (8.0-11.0) 03/15/19 11:05 Immature Gran % 0.5 03/15/19 11:05 77.4 03/15/19 11:05 11.5 03/15/19 11:05 7.7 03/15/19 11:05 2.4 03/15/19 11:05 0.5 03/15/19 11:05 Absolute Neutrophils 8.48 k/cumm (1.2-6.7) H 03/15/19 11:05 Absolute Lymphocytes 1.26 k/cumm (1.2-3.4) 03/15/19 11:05 Absolute Monocytes 0.84 k/cumm (0.11-0.7) H 03/15/19 11:05 Absolute Eosinophils 0.26 k/cumm (0.0-0.7) 03/15/19 11:05 Absolute Basophils 0.05 k/cumm (0.0-0.2) 03/15/19 11:05 ESR 73 MM/HR (1-20) H 03/13/19 16:52 Sodium 138 mmol/L (136-145) 03/16/19 07:01 Potassium 4.5 mmol/L (3.5-5.1) 03/16/19 07:01 Chloride 104 mmol/L (98-107) 03/16/19 07:01 Carbon Dioxide 24.2 mmol/L (21.0-32.0) 03/16/19 07:01 9.8 mmol/L (3-11) 03/16/19 07:01 BUN 19 mg/dL (7-18) H D 03/16/19 07:01 1.25 mg/dL (0.70-1.30) 03/16/19 07:01 55.86 (mL/min/1.73m2) 03/16/19 07:01 Glucose 193 mg/dL (70-100) H 03/16/19 07:01 8.7 % (4.5-6.2) H 03/14/19 06:55 1.4 mmol/l (0.6-1.4) 03/13/19 16:52 Calcium 8.5 mg/dL (8.5-10.1) 03/16/19 07:01 Magnesium 1.7 mg/dL (1.8-2.4) L 03/16/19 07:01 0.5 mg/dL (0.2-1.0) 03/13/19 16:52 AST 10 U/L (15-37) L 03/13/19 16:52 ALT 13 U/L (12-78) 03/13/19 16:52 143 U/L (46-116) H 03/13/19 16:52 7.51 mg/dL (0.0-0.3) H 03/13/19 16:52 7.5 g/dL (6.4-8.2) 03/13/19 16:52 3.3 g/dL (3.4-5.0) L 03/13/19 16:52 0.1 ng/mL 03/13/19 16:52
[2019-03-16] MEDS: Normal Saline Flush 10 ML SYR IVP (08:53)
[2019-03-16] MEDS: Enoxaparin 40 MG/0.4 ML SYR SC (09:34)
[2019-03-16] MEDS: Clindamycin 150 MG CAP 450 MG PO ×2 (10:31→17:26)
--- NOTE | 2019-03-16 14:26 | W.PM.PROGNOT ---
Date of Service Date of service: 03/16/19 Time of Service: 14:27 Assessment and Plan (1) Cellulitis: Current visit: Yes Status: Acute Ccellulitic changes surrounding non-healing, necrotic appearing ulcers. Patient was initiated on Pip-Tazo, with Vancomycin added for treatment of a moderate diabetic lower extremity infection. Underwent surgical debridement on 03/15, unfortunately culture data is unavailable and Blood Cultures with no growth X48 hours. - Will continue to cover broadly, including for strep, Staph, GN, and anaerobes - discontinue IV Antibiotics and initiate oral regimen with combination Clindamycin & Levofloxacin. Currently on day #3 of antibiotic therapy. (2) Venous stasis ulcer: Current visit: Yes Status: Chronic Under the care of Dr. Christianson at local wound center. Currently s/p surgical debridement with wound vac in place. (3) HTN (hypertension): Current visit: Yes Status: Chronic Continue CCB, BOYD-I (Elevated creatinine appears at upper limits of patient's prior baseline), and Clonidine. Patient also on diuretic therapy with Furosemide. Blood Pressure at goal. (4) Hx TIA/stroke w/o resid: Current visit: Yes Status: Resolved Appeared initially to be on Dual Antiplatelet therapy with ASA and Clopidogrel. Patient reports being started on Clopidogrel following his last CVA while on aspirin therapy - unsure if this was for secondary prevention, and if so if he would benefit from DAPT vs. Clopidogrel alone, as well as with increased risk for GI Bleed. Currently with plavix on hold prior to procedure - will reinitiate starting tomorrow, and discontinue aspirin. Will also ensure daily PPI therapy for GI Protection. Of note, last MRI in 2016 showed evidence of small areas of remote infarction in the right cerebellar hemisphere, left basal ganglia, and left parietal periventricular white matter. Patient also with mention of LAE and potential PFO by ECHO - question potential for Paroxysmal Afib with Cardioembolic CVA in past. Consider long-term holter in future. (5) Diabetes: Current visit: Yes Status: Chronic Hold Metformin, initiate ISS, and maintain on ADA diet. (6) DVT prophylaxis: Current visit: Yes Status: Acute SCDs. On SC Enoxaparin. Subjective Interval history since last seen: 78-year-old man with a prior history of obesity and chronic venous stasis with ulcers, admitted from [facility] Emergency Department on 03/13 with a diagnosis of RLE Cellulitis. Mr. Iniguez has a past Medical History significant for TIA/CVA, DM, SAMMI, HTN, Dyslipidemia, Obesity, COPD, GERD, and Gout. He also has a history of Chronic Venous Stasis with poorly healing LE Ulcer, for which he had been following chronically with [facility] Wound care and now with Dr. Christianson. He has also undergone evaluation by [facility] Vascular surgery, with apparent lack of surgical benefit. The patient reported worsening symptoms over the last week, including enlargement of the wound, worsening drainage, and surrounding erythema. He was referred by Dr. Christianson to the ED for further evaluation. Labwork was significant for an elevated ESR and CRP, and signs of worsening localized infection. He was referred for admission for further evaluation and treatment. This morning Mr. Iniguez reports continued improvement in his overall symptoms. He was also evaluated by Dr. Christianson, and underwent debridement in the OR on 03/15. No overnight events reported. Remains afebrile. Exam Narrative Exam Narrative: General: Patient appears comfortable, AAOX3, NAD Neck: Supple CV: Regular, nontachycardic, S1S2, 3/6 LLSB murmur appreciated. Pulmonary: Clear to auscultation bilaterally, no crackles, wheezing, or rhonchi Abdomen: + Bowel Sounds, soft, nontender, nondistended. Obese in contour. Vascular: Chronic appearing b/l lower extremity edema. RLE with wrap in place and woundvac underlying. Psych: Normal mood and affect. Objective Objective Clinical Data: Abnormal lab results 03/16/19 03/16/19 Range/Units 07:01 07:01 WBC 11.39 H (4.4-10.8) k/cumm RBC 4.11 L (4.50-6.00) m/cumm Hgb 12.0 L (13.5-17.5) g/dL Hct 37.3 L (40.0-50.0) % Absolute Neutrophils 8.29 H (1.2-6.7) k/cumm Absolute Monocytes 0.97 H (0.11-0.7) k/cumm BUN 19 H D (7-18) mg/dL Glucose 193 H (70-100) mg/dL Magnesium 1.7 L (1.8-2.4) mg/dL Vital Signs Temperature 36.6 C 03/16/19 11:45 Temperature Source Temporal Artery Scan 03/16/19 11:45 Pulse 67 03/16/19 11:45 Pulse Rhythm Regular 03/16/19 07:40 Respiratory Rate 16 03/16/19 11:45 Respiratory Effort 03/16/19 07:40 Respiratory Depth Normal 03/16/19 07:40 Respiratory Pattern Normal 03/16/19 07:40 Blood Pressure 124/68 03/16/19 11:45 Blood Pressure Position Supine 03/13/19 16:26 Pulse Oximetry 97 03/16/19 11:45 Respiratory End-tidal CO2 31 03/15/19 15:28 Oxygen Delivery Method Room Air 03/16/19 13:54 Oxygen Flow Rate 0 03/16/19 13:54 Pain Level 7 03/16/19 12:14 Intake & Output 03/15/19 03/16/19 03/16/19 23:59 11:59 23:59 Intake Total 1006 / 1366 2097.333 / 2337.333 240 / 2337.333 Output Total 600 / 600 300 / 300 Balance 406 / 766 1797.333 / 2037.333 240 / 2037.333 Weight 126.2 kg Intake: IV 606 / 966 1597.333 / 1597.333 Oral 400 / 400 500 / 740 240 / 740 Output: Output, Wound Vac (mls) 0 / 0 0 / 0 Urine 600 / 600 300 / 300 Other: Urine Color Yellow Yellow Urine Appearance Clear Urine Odor Normal Comment urine not seen however pt voiced he used a urinal pt voided independently Emesis Description None Voiding Methods Urinal Toilet Laboratory Results WBC 11.39 k/cumm (4.4-10.8) H 03/16/19 07:01 RBC 4.11 m/cumm (4.50-6.00) L 03/16/19 07:01 Hgb 12.0 g/dL (13.5-17.5) L 03/16/19 07:01 Hct 37.3 % (40.0-50.0) L 03/16/19 07:01 MCV 90.8 fL (80-95) 03/16/19 07:01 MCH 29.2 pg (27.0-33.0) 03/16/19 07:01 MCHC 32.2 g/dL (32.0-36.0) 03/16/19 07:01 RDW 13.3 % (11.8-14.1) 03/16/19 07:01 Plt Count 283 x1000/uL (130-400) 03/16/19 07:01 MPV 9.5 fL (8.0-11.0) 03/16/19 07:01 Immature Gran % 0.4 03/16/19 07:01 72.8 03/16/19 07:01 14.3 03/16/19 07:01 8.5 03/16/19 07:01 3.6 03/16/19 07:01 0.4 03/16/19 07:01 Absolute Neutrophils 8.29 k/cumm (1.2-6.7) H 03/16/19 07:01 Absolute Lymphocytes 1.63 k/cumm (1.2-3.4) 03/16/19 07:01 Absolute Monocytes 0.97 k/cumm (0.11-0.7) H 03/16/19 07:01 Absolute Eosinophils 0.41 k/cumm (0.0-0.7) 03/16/19 07:01 Absolute Basophils 0.05 k/cumm (0.0-0.2) 03/16/19 07:01 ESR 73 MM/HR (1-20) H 03/13/19 16:52 Sodium 138 mmol/L (136-145) 03/16/19 07:01 Potassium 4.5 mmol/L (3.5-5.1) 03/16/19 07:01 Chloride 104 mmol/L (98-107) 03/16/19 07:01 Carbon Dioxide 24.2 mmol/L (21.0-32.0) 03/16/19 07:01 9.8 mmol/L (3-11) 03/16/19 07:01 BUN 19 mg/dL (7-18) H D 03/16/19 07:01 1.25 mg/dL (0.70-1.30) 03/16/19 07:01 55.86 (mL/min/1.73m2) 03/16/19 07:01 Glucose 193 mg/dL (70-100) H 03/16/19 07:01 8.7 % (4.5-6.2) H 03/14/19 06:55 1.4 mmol/l (0.6-1.4) 03/13/19 16:52 Calcium 8.5 mg/dL (8.5-10.1) 03/16/19 07:01 Magnesium 1.7 mg/dL (1.8-2.4) L 03/16/19 07:01 0.5 mg/dL (0.2-1.0) 03/13/19 16:52 AST 10 U/L (15-37) L 03/13/19 16:52 ALT 13 U/L (12-78) 03/13/19 16:52 143 U/L (46-116) H 03/13/19 16:52 7.51 mg/dL (0.0-0.3) H 03/13/19 16:52 7.5 g/dL (6.4-8.2) 03/13/19 16:52 3.3 g/dL (3.4-5.0) L 03/13/19 16:52 0.1 ng/mL 03/13/19 16:52
--- NOTE | 2019-03-16 14:55 | W.PM.PROGNOT ---
Date of Service Date of service: 03/16/19 Time of Service: 14:56 Subjective Patient reports: no new complaints Exam Narrative Exam Narrative: This is an addendum from the morning Note. Patient is encouraged to increase ambulation which will aid in resolving his venous wound. He is to carry his wound vac and maintain his dressings as instructed. When not actively walking, he needs to elevate his LE to help control edema. Objective Objective Clinical Data: Abnormal lab results 03/16/19 03/16/19 Range/Units 07:01 07:01 WBC 11.39 H (4.4-10.8) k/cumm RBC 4.11 L (4.50-6.00) m/cumm Hgb 12.0 L (13.5-17.5) g/dL Hct 37.3 L (40.0-50.0) % Absolute Neutrophils 8.29 H (1.2-6.7) k/cumm Absolute Monocytes 0.97 H (0.11-0.7) k/cumm BUN 19 H D (7-18) mg/dL Glucose 193 H (70-100) mg/dL Magnesium 1.7 L (1.8-2.4) mg/dL Vital Signs Temperature 36.6 C 03/16/19 11:45 Temperature Source Temporal Artery Scan 03/16/19 11:45 Pulse 67 03/16/19 11:45 Pulse Rhythm Regular 03/16/19 07:40 Respiratory Rate 16 03/16/19 11:45 Respiratory Effort 03/16/19 07:40 Respiratory Depth Normal 03/16/19 07:40 Respiratory Pattern Normal 03/16/19 07:40 Blood Pressure 121/78 03/16/19 14:32 Blood Pressure Position Supine 03/13/19 16:26 Pulse Oximetry 97 03/16/19 11:45 Respiratory End-tidal CO2 31 03/15/19 15:28 Oxygen Delivery Method Room Air 03/16/19 13:54 Oxygen Flow Rate 0 03/16/19 13:54 Pain Level 7 03/16/19 12:14 Intake & Output 03/15/19 03/16/19 03/16/19 18:59 06:59 18:59 Intake Total 866 / 2234 1368 / 2234 1419.333 / 1419.333 Output Total 600 / 600 300 / 300 Balance 866 / 1634 768 / 1634 1119.333 / 1119.333 Weight 126.2 kg Intake: IV 866 / 1834 968 / 1834 679.333 / 679.333 Oral 400 / 400 740 / 740 Output: Output, Wound Vac (mls) 0 / 0 Urine 600 / 600 300 / 300 Other: Urine Color Yellow Yellow Urine Appearance Clear Clear Urine Odor Normal Comment per pt report; urine not assessed at this time urine not seen however pt voiced he used a urinal pt voided independently Emesis Description None Voiding Methods Toilet Urinal Toilet Laboratory Results WBC 11.39 k/cumm (4.4-10.8) H 03/16/19 07:01 RBC 4.11 m/cumm (4.50-6.00) L 03/16/19 07:01 Hgb 12.0 g/dL (13.5-17.5) L 03/16/19 07:01 Hct 37.3 % (40.0-50.0) L 03/16/19 07:01 MCV 90.8 fL (80-95) 03/16/19 07:01 MCH 29.2 pg (27.0-33.0) 03/16/19 07:01 MCHC 32.2 g/dL (32.0-36.0) 03/16/19 07:01 RDW 13.3 % (11.8-14.1) 03/16/19 07:01 Plt Count 283 x1000/uL (130-400) 03/16/19 07:01 MPV 9.5 fL (8.0-11.0) 03/16/19 07:01 Immature Gran % 0.4 03/16/19 07:01 72.8 03/16/19 07:01 14.3 03/16/19 07:01 8.5 03/16/19 07:01 3.6 03/16/19 07:01 0.4 03/16/19 07:01 Absolute Neutrophils 8.29 k/cumm (1.2-6.7) H 03/16/19 07:01 Absolute Lymphocytes 1.63 k/cumm (1.2-3.4) 03/16/19 07:01 Absolute Monocytes 0.97 k/cumm (0.11-0.7) H 03/16/19 07:01 Absolute Eosinophils 0.41 k/cumm (0.0-0.7) 03/16/19 07:01 Absolute Basophils 0.05 k/cumm (0.0-0.2) 03/16/19 07:01 ESR 73 MM/HR (1-20) H 03/13/19 16:52 Sodium 138 mmol/L (136-145) 03/16/19 07:01 Potassium 4.5 mmol/L (3.5-5.1) 03/16/19 07:01 Chloride 104 mmol/L (98-107) 03/16/19 07:01 Carbon Dioxide 24.2 mmol/L (21.0-32.0) 03/16/19 07:01 9.8 mmol/L (3-11) 03/16/19 07:01 BUN 19 mg/dL (7-18) H D 03/16/19 07:01 1.25 mg/dL (0.70-1.30) 03/16/19 07:01 55.86 (mL/min/1.73m2) 03/16/19 07:01 Glucose 193 mg/dL (70-100) H 03/16/19 07:01 8.7 % (4.5-6.2) H 03/14/19 06:55 1.4 mmol/l (0.6-1.4) 03/13/19 16:52 Calcium 8.5 mg/dL (8.5-10.1) 03/16/19 07:01 Magnesium 1.7 mg/dL (1.8-2.4) L 03/16/19 07:01 0.5 mg/dL (0.2-1.0) 03/13/19 16:52 AST 10 U/L (15-37) L 03/13/19 16:52 ALT 13 U/L (12-78) 03/13/19 16:52 143 U/L (46-116) H 03/13/19 16:52 7.51 mg/dL (0.0-0.3) H 03/13/19 16:52 7.5 g/dL (6.4-8.2) 03/13/19 16:52 3.3 g/dL (3.4-5.0) L 03/13/19 16:52 0.1 ng/mL 03/13/19 16:52
--- NOTE | 2019-03-16 15:03 | PDOC.CMPRO ---
Care Management Progress Note S/O: CM supported coordination of wound vac placement with Magy; M/S Director and Dr. Christianson. Dr. Christianson was agreeable to updating his note, permitting Magy to complete requirements through insurance and [facility] for new wound vac attainment. CM continues to follow. A: 78 year old male admitted to [facility] for Right Leg Cellulitis, brought to OR 03/15/19 for debridement of leg with wound vac placement P: Dionna will return home with wound vac placed when ready per MD. He will return to [facility] infusion room for dressing changes. CM continues to follow and support discharge planning considerations.
[2019-03-16] MEDS: Lactobacillus Acidophilus CAP 1 CAP PO (19:26)
[2019-03-16] MEDS: traMADol 50 MG TAB PO (19:26)
[2019-03-16] MEDS: Atorvastatin 40 MG TAB PO (19:28)
[2019-03-17] VITALS (7 sets, daily range): BP systolic 102–139; BP diastolic 66–82; PULSE 62–75; RESP 16–20; TEMP 35.9–36.8; O2SAT 95–98
[2019-03-17] MEDS: Clindamycin 150 MG CAP 450 MG PO ×2 (03:20→10:16)
[2019-03-17] MEDS: oxyCODONE 5 MG TAB PO ×4 (03:22→16:27)
[2019-03-17] MEDS: Enoxaparin 40 MG/0.4 ML SYR SC (08:26)
[2019-03-17] MEDS: Insulin Aspart 300 UNITS/3 ML PEN SC ×3 (08:27→16:52)
[2019-03-17] MEDS: Lisinopril 10 MG TAB 30 MG PO (08:28)
[2019-03-17] MEDS: Clopidogrel 75 MG TAB PO (08:28)
[2019-03-17] MEDS: Pantoprazole 40 MG TABCR PO (08:28)
[2019-03-17] MEDS: Allopurinol 100 MG TAB PO (08:28)
[2019-03-17] MEDS: levoFLOXacin 500 MG, levoFLOXacin 250 MG 750 MG PO (08:29)
[2019-03-17] MEDS: Furosemide 40 MG TAB PO (08:29)
[2019-03-17] MEDS: amLODIPine 10 MG TAB PO (08:29)
[2019-03-17] MEDS: cloNIDine 0.1 MG TAB 0.3 MG PO ×2 (08:29→14:32)
[2019-03-17] MEDS: Lactobacillus Acidophilus CAP 1 CAP PO (08:29)
[2019-03-17 08:32] LABS: Abs Immature Grans 0.04 k/cumm (0.0-0.09); Absolute Basophil Count 0.04 k/cumm (0.0-0.2); Absolute Eosinophil Count 0.37 k/cumm (0.0-0.7); Absolute Lymphocyte Count 1.62 k/cumm (1.2-3.4); Absolute Monocyte Count 0.85 k/cumm (0.11-0.7); Absolute Neutrophil Count 7.87 k/cumm (1.2-6.7); Basophils % 0.4; Eosinophils % 3.4; Immature Grans % 0.4; Mean Corp. HGB Concentration 31.4 g/dL (32.0-36.0); Mean Corpuscular Hemoglobin 28.2 pg (27.0-33.0); Mean Corpuscular Volume 89.7 fL (80-95); Mean Platelet Volume 9.5 fL (8.0-11.0); Monocytes % 7.9; Neutrophils % 72.9; Platelet Count 283 x1000/uL (130-400); RBC Distribution Width 13.1 % (11.8-14.1); White Blood Cell Count 10.79 k/cumm (4.4-10.8)
[2019-03-17] MEDS: Acetaminophen 325 MG TAB PO ×2 (08:33→12:25)
[2019-03-17 08:39] LABS: Anion Gap 10.3 mmol/L (3-11); BUN 23 mg/dL (7-18); CO2 22.7 mmol/L (21.0-32.0); CREATININE 1.18 mg/dL (0.70-1.30); Calcium 8.7 mg/dL (8.5-10.1); Chloride 103 mmol/L (98-107); Glucose 217 mg/dL (70-100); Magnesium 1.8 mg/dL (1.8-2.4); Potassium 4.5 mmol/L (3.5-5.1); Sodium 136 mmol/L (136-145)
[2019-03-17] MEDS: Budesonide/Formoterol 160/4.5 6 GM 60 PUFF INH IH (11:08)
[2019-03-17] MEDS: Tiotropium Bromide-Respimat 10 PUFF INH IH (11:08)
[2019-03-17] MEDS: Magnesium Oxide 400 MG TAB PO (11:18)
--- NOTE | 2019-03-17 12:14 | W.PM.PROGNOT ---
Date of Service Date of service: 03/17/19 Time of Service: 12:14 Subjective Patient reports: no new complaints, feels better and pain is less Exam Narrative Exam Narrative: Dionna is 48 hours status post debridement wound right ankle. He is tolerated the wound VAC without difficulty Today's labs show normalization of his white blood cell count now at 10.79 RBCs are low at 3.9 hemoglobin was low at 11.0 hematocrit 35.0. BUN is at 23. Glucose this morning was 217. He is on insulin sliding scale. His IV antibiotics had been discontinued previously and he is now on clindamycin 450 milligrams every 8 hours levofloxacin 750 mg every morning Objective Objective Clinical Data: Abnormal lab results 03/17/19 03/17/19 Range/Units 07:15 07:15 RBC 3.90 L (4.50-6.00) m/cumm Hgb 11.0 L (13.5-17.5) g/dL Hct 35.0 L (40.0-50.0) % MCHC 31.4 L (32.0-36.0) g/dL Absolute Neutrophils 7.87 H (1.2-6.7) k/cumm Absolute Monocytes 0.85 H (0.11-0.7) k/cumm BUN 23 H (7-18) mg/dL Glucose 217 H (70-100) mg/dL Vital Signs Temperature 36.5 C 03/17/19 07:30 Temperature Source Tympanic 03/17/19 07:30 Pulse 63 03/17/19 07:30 Pulse Rhythm Regular 03/17/19 07:30 Respiratory Rate 18 03/17/19 07:30 Respiratory Effort 03/17/19 07:30 Respiratory Depth Normal 03/17/19 07:30 Respiratory Pattern Normal 03/17/19 07:30 Blood Pressure 124/81 03/17/19 09:29 Blood Pressure Position Supine 03/13/19 16:26 Pulse Oximetry 95 03/17/19 07:30 Respiratory End-tidal CO2 31 03/15/19 15:28 Oxygen Delivery Method Room Air 03/17/19 07:30 Oxygen Flow Rate 0 03/17/19 07:30 Pain Level 6 03/17/19 08:33 Intake & Output 03/16/19 03/17/19 03/17/19 18:59 06:59 18:59 Intake Total 1419.333 / 1469.333 50 / 1469.333 650 / 650 Output Total 300 / 650 350 / 650 550 / 550 Balance 1119.333 / 819.333 -300 / 819.333 100 / 100 Weight 126.2 kg 127.4 kg Intake: IV 679.333 / 729.333 50 / 729.333 Oral 740 / 740 650 / 650 Output: Output, Wound Vac (mls) 0 / 0 Urine 300 / 650 350 / 650 550 / 550 Other: Urine Color Yellow Yellow Yellow Urine Appearance Clear Clear Urine Odor Normal None Comment pt voided independently Voiding Methods Toilet Urinal Urinal Laboratory Results WBC 10.79 k/cumm (4.4-10.8) 03/17/19 07:15 RBC 3.90 m/cumm (4.50-6.00) L 03/17/19 07:15 Hgb 11.0 g/dL (13.5-17.5) L 03/17/19 07:15 Hct 35.0 % (40.0-50.0) L 03/17/19 07:15 MCV 89.7 fL (80-95) 03/17/19 07:15 MCH 28.2 pg (27.0-33.0) 03/17/19 07:15 MCHC 31.4 g/dL (32.0-36.0) L 03/17/19 07:15 RDW 13.1 % (11.8-14.1) 03/17/19 07:15 Plt Count 283 x1000/uL (130-400) 03/17/19 07:15 MPV 9.5 fL (8.0-11.0) 03/17/19 07:15 Immature Gran % 0.4 03/17/19 07:15 72.9 03/17/19 07:15 15.0 03/17/19 07:15 7.9 03/17/19 07:15 3.4 03/17/19 07:15 0.4 03/17/19 07:15 Absolute Neutrophils 7.87 k/cumm (1.2-6.7) H 03/17/19 07:15 Absolute Lymphocytes 1.62 k/cumm (1.2-3.4) 03/17/19 07:15 Absolute Monocytes 0.85 k/cumm (0.11-0.7) H 03/17/19 07:15 Absolute Eosinophils 0.37 k/cumm (0.0-0.7) 03/17/19 07:15 Absolute Basophils 0.04 k/cumm (0.0-0.2) 03/17/19 07:15 ESR 73 MM/HR (1-20) H 03/13/19 16:52 Sodium 136 mmol/L (136-145) 03/17/19 07:15 Potassium 4.5 mmol/L (3.5-5.1) 03/17/19 07:15 Chloride 103 mmol/L (98-107) 03/17/19 07:15 Carbon Dioxide 22.7 mmol/L (21.0-32.0) 03/17/19 07:15 10.3 mmol/L (3-11) 03/17/19 07:15 BUN 23 mg/dL (7-18) H 03/17/19 07:15 1.18 mg/dL (0.70-1.30) 03/17/19 07:15 59.70 (mL/min/1.73m2) 03/17/19 07:15 Glucose 217 mg/dL (70-100) H 03/17/19 07:15 8.7 % (4.5-6.2) H 03/14/19 06:55 1.4 mmol/l (0.6-1.4) 03/13/19 16:52 Calcium 8.7 mg/dL (8.5-10.1) 03/17/19 07:15 Magnesium 1.8 mg/dL (1.8-2.4) 03/17/19 07:15 0.5 mg/dL (0.2-1.0) 03/13/19 16:52 AST 10 U/L (15-37) L 03/13/19 16:52 ALT 13 U/L (12-78) 03/13/19 16:52 143 U/L (46-116) H 03/13/19 16:52 7.51 mg/dL (0.0-0.3) H 03/13/19 16:52 7.5 g/dL (6.4-8.2) 03/13/19 16:52 3.3 g/dL (3.4-5.0) L 03/13/19 16:52 0.1 ng/mL 03/13/19 16:52 Reviewed Pertinent PMH: Yes Objective Narrative Objective Narrative: Dressings are removed from his right lower excess remedy the wound shows early signs of granulation activity around the wound margins, no signs of necrosis. The base of the wound appears clean the fascia remains exposed some early biologic activity noted at the margins of the fascia. No erythema or cellulitis is noted no purulence was identified. His calves is soft to palpation his peripheral edema is well controlled The wound currently measures 7 cm from proximal distal, 4 cm medial lateral and the depth goes to fascia. Impressions: 48 hours status post debridement wound right ankle region with wound VAC application doing well. Clinical signs of infection are absent and his venous stasis disease is well controlled through compression. He is tolerating p.o. medications well and appears ready for discharge with home health to provide wound VAC manage on a Wednesday, Wednesday and Wednesday protocol. I did explain to Dionna that I encourage him to walk around actively on a daily basis he is cautioned against prolonged sitting with his legs down and general inactivity with his legs in a dependent manner. He needs to keep his lower extremities elevated when he is nonambulatory to help reduce peripheral edema and aid in wound resolution I appreciate Dr. killian's assistance in management of this patient I will have the patient follow-up in the office in approximately 10 days.
--- NOTE | 2019-03-17 12:22 | CMDISCH_ITS ---
LACE Index Scoring Tool - Questions: Length of Stay (in days): 4 - 6 Acuity (Admit via E.D.?): Yes Comorbidities: Diabetes w/o Complication, Chronic Pulmonary Disease E.D. Visits: 1 - Answers: Total Score: 11 Risk of Readmission: High Risk Care Management Discharge Reason for Hospitalization: Right Leg Cellulitis Discharge Plan: When medically ready, Dionna will return home with [place] wound vac placed. He will have wound vac changes provided by [facility] on //. He will follow up with his PCP and plan of care as prescribed. CM continues to follow and support discharge planning considerations. Patient/Family Education Needs: Review discharge instructions, discuss Ask Me Three. Services Needed at Discharge: DME Agency ([place] Wound Vac), Home Health Care Services (Wound vac )
--- NOTE | 2019-03-17 13:16 | DSE_ITS ---
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 (5) Diabetes: Status: Chronic Discharge Plan Disposition Patient Disposition: HOME W/HOME HEALTH SERVICE Condition: Stable Discharge Details Chief Complaint: GenMedical Clinical Impression: Cellulitis of leg, right Reason For Visit: RIGHT LEG CELLULITIS Admit Date/Time: 03/13/19 19:30 Admit Provider: Isaiah Moyer Attending Provider: Isaiah Moyer Primary Care Provider: Soledad Slaughter ED Provider: Isaiah Figueroa Hospital Course Hospital Course: Chief Complaint: Lower Extremity Ulcer, Cellulitis HPI: 78-year-old man with a prior history of obesity and chronic venous stasis with ulcers, admitted from [facility] Emergency Department on 03/13 with a diagnosis of RLE Cellulitis. Mr. Iniguez has a past Medical History significant for TIA/CVA, DM, SAMMI, HTN, Dyslipidemia, Obesity, COPD, GERD, and Gout. He also has a history of Chronic Venous Stasis with a poorly healing RLE Ulcer, for which he had been following chronically with [facility] and now with Dr. Christianson. He has also undergone evaluation by [facility] surgery, with apparent lack of surgical benefit. The patient reported worsening symptoms over week prior to his admission, including enlargement of the wound, worsening drainage, and surrounding erythema. He was referred by Dr. Christianson to the ED for further evaluation. Labwork was significant for an elevated ESR and CRP, and signs of worsening localized infection. He was referred for admission for further evaluation and treatment. The patient underwent a debridement in the OR on 03/15. This morning Mr. Iniguez reports continued improvement in his overall symptoms. He was also evaluated by Dr. Christianson, with improvement noted during changing of his Wound Vac. No ove rnight events reported. Remains afebrile. Hospital Course: (1) Cellulitis: Ccellulitic changes surrounding non-healing, necrotic appearing ulcers. Patient was initiated on Pip-Tazo, with Vancomycin added for treatment of a moderate diabetic lower extremity infection. Underwent surgical debridement on 03/15, unfortunately culture data is unavailable and Blood Cultures with no growth X72 hours. - Will continue to cover broadly, including for strep, Staph, GN, and anaerobes - discontinued IV Antibiotics and initiated oral regimen with combination Clindamycin & Levofloxacin on 03/16. Currently on day #12/18 of antibiotic therapy. Will hold SSRI while on Levofloxacin. - Will leave with Wound Vac in place, with plans for changes 3 times weekly (Every Wednesday, Wednesday, and Wednesday), with follow-up with Dr. Christianson. If Wound Vac were to fail, instructions are for Wet to dressing changes, and contact with Dr. Christianson's office. (2) Venous stasis ulcer: Under the care of Dr. Christianson at local wound center. Currently s/p surgical debridement with wound vac in place. Continue antibiotics as above. (3) HTN (hypertension): Continue CCB, BOYD-I (Elevated creatinine appears at upper limits of patient's prior baseline), and Clonidine. Patient also on diuretic therapy with Furosemide. Blood Pressure has remained at goal. (4) Hx TIA/stroke w/o resid: Appeared initially to be on Dual Antiplatelet therapy with ASA and Clopidogrel. Patient reports being started on Clopidogrel following his last CVA while on aspirin therapy - unsure if this was for secondary prevention, and if so if he would benefit from DAPT vs. Clopidogrel alone, as well as with increased risk for GI Bleed. Currently with plavix restarted. Will discontinue aspirin, and ensure daily PPI therapy for GI Protection. Of note, last MRI in 2016 showed evidence of small areas of remote infarction in the right cerebellar hemisphere, left basal ganglia, and left parietal periventricular white matter. Patient also with mention of LAE and potential PFO by ECHO - question potential for Paroxysmal Afib with Cardioembolic CVA in past. Consider long-term holter in future. However, currently without evidence of Afib. (5) Diabetes: Metformin was held, and patient was maintained on ISS and ADA diet. (6) Depression: Will hold SSRI therapy due to potential interaction with Levofloxacin, and restart after patient has completed antibiotic course. (7) DVT prophylaxis: SCDs. On SC Enoxaparin. Home Meds and New Rx's Prescriptions: New clindamycin HCl 150 mg Capsule 450 mg PO Q8H Qty: 31 RF: 0 pantoprazole 40 mg Tablet,Delayed Release (Dr/Ec) 40 mg PO DAILY@0730 Qty: 30 RF: 0 levofloxacin [Levaquin] 750 mg Tablet 750 mg PO QAM Qty: 8 RF: 0 oxycodone 5 mg Tablet 5 mg PO Q4H PRN PRNQty: 15 RF: 0 acidophilus-pectin, citrus 25 million cell -100 mg Tablet 1 cap PO BID Qty: 60 RF: 0 Continued furosemide 40 mg Tablet 40 mg PO DAILY RF: 0 metolazone 2.5 mg Tablet 2.5 mg PO .TWICE WEEKLY RF: 0 atorvastatin 40 mg Tablet 40 mg PO DAILY RF: 0 metformin 500 mg Tablet 500 mg PO BID RF: 0 clonidine HCl 0.3 mg Tablet 0.3 mg PO TID RF: 0 cyanocobalamin (vitamin B-12) [Vitamin B-12] 1,000 mcg Tablet 1,000 mcg PO BID RF: 0 clopidogrel 75 mg Tablet 75 mg PO DAILY RF: 0 allopurinol 100 mg Tablet 100 mg PO DAILY RF: 0 tramadol 50 mg Tablet 50 mg PO TID PRNRF: 0 acetaminophen [Tylenol Arthritis Pain] 650 mg Tablet Extended Release 650 mg PO Q4H PRN PRNRF: 0 amlodipine 10 mg Tablet 10 mg PO DAILY RF: 0 fluticasone propion-salmeterol [Advair Diskus] 500-50 mcg/dose Blister With Device 1 inh INHALATION BID RF: 0 lisinopril 30 mg Tablet 30 mg PO DAILY RF: 0 naproxen 500 mg Tablet 500 mg PO BID PRNRF: 0 Spiriva with HandiHaler 18 mcg Capsule, W/Inhalation Device 1 cap INHALATION DAILY RF: 0 Discontinued citalopram 10 mg Tablet 10 mg PO DAILY RF: 0 aspirin [Aspir-Low] 81 mg Tablet,Delayed Release (Dr/Ec) 81 mg PO DAILY RF: 0 Discharge Instructions Activity:: No Strenuous Activity Equipment/Supplies:: Wound Vac Diet:: Carb Counting Discharge Orders Discharge Orders: Discharge Order (Routine); Ordered 03/17/19 Ordered By: Alcides Amaya Exam Narrative Exam Narrative: Prior exam with: General: Patient appears comfortable, AAOX3, NAD Neck: Supple CV: Regular, nontachycardic, S1S2, 3/6 LLSB murmur appreciated. Pulmonary: Clear to auscultation bilaterally, no crackles, wheezing, or rhonchi Abdomen: + Bowel Sounds, soft, nontender, nondistended. Obese in contour. Exam this morning with: Vascular: Chronic appearing b/l lower extremity edema. RLE with wrap in place and woundvac underlying. With dressing removed wound appears clean post- debridement, with granulation tissue beginning to form at the edges. Minimal surrounding erythema which appears vastly improved. Psych: Normal mood and affect. DS: Data Vitals/I&O Vitals and I&O: Vital Signs Temperature 35.9 C L 03/17/19 12:00 Temperature Source Tympanic 03/17/19 12:00 Pulse 62 03/17/19 12:00 Pulse Rhythm Regular 03/17/19 07:30 Respiratory Rate 16 03/17/19 12:00 Respiratory Effort 03/17/19 07:30 Respiratory Depth Normal 03/17/19 07:30 Respiratory Pattern Normal 03/17/19 07:30 Blood Pressure 136/79 03/17/19 12:00 Blood Pressure Position Supine 03/13/19 16:26 Pulse Oximetry 98 03/17/19 12:00 Respiratory End-tidal CO2 31 03/15/19 15:28 Oxygen Delivery Method Room Air 03/17/19 12:00 Oxygen Flow Rate 0 03/17/19 12:00 Pain Level 10 03/17/19 12:25 Intake & Output 03/16/19 03/17/19 03/17/19 23:59 11:59 23:59 Intake Total 240 / 2337.333 700 / 700 Output Total 900 / 900 Balance 240 / 2037.333 -200 / -200 Weight 127.4 kg Intake: IV 50 / 50 Oral 240 / 740 650 / 650 Output: Output, Wound Vac (mls) 0 / 0 Urine 900 / 900 Other: Urine Color Yellow Urine Appearance Clear Urine Odor None Voiding Methods Urinal Completed studies during hospitalization [Text1]: Exam(s) a RAD:XR tib/fib RT SYMPTOM/DIAGNOSIS: MID LEG WOUND RIGHT LE03/13/19 Three views were obtained. There is reportedly a history of cellulitis. Possible old healed tibial fracture noted. No gross acute bony erosion or destruction. No new periosteal reaction seen. CONCLUSION: No radiographic evidence of osteomyelitis. If there is a clinical suspicious of osteomyelitis additional evaluation with bone scan or MRI may be considered. Labs on day of discharge: Labs from last 24 hours 03/17/19 03/17/19 07:15 07:15 WBC 10.79 RBC 3.90 L Hgb 11.0 L Hct 35.0 L MCV 89.7 MCH 28.2 MCHC 31.4 L RDW 13.1 Plt Count 283 MPV 9.5 Immature Gran % 0.4 Neutrophils % 72.9 Lymphocytes % 15.0 Monocytes % 7.9 Eosinophils % 3.4 Basophils % 0.4 Absolute Neutrophils 7.87 H Absolute Lymphocytes 1.62 Absolute Monocytes 0.85 H Absolute Eosinophils 0.37 Absolute Basophils 0.04 Sodium 136 Potassium 4.5 Chloride 103 Carbon Dioxide 22.7 Anion Gap 10.3 BUN 23 H Creatinine 1.18 Estimated GFR/1.73 m2 59.70 Glucose 217 H Calcium 8.7 Magnesium 1.8 Preliminary micro results at discharge 03/13/19 18:40 Blood Culture - Preliminary Blood NO GROWTH 72 HOURS 03/13/19 18:25 Blood Culture - Preliminary Blood NO GROWTH 72 HOURS [facility] Medical History Cellulitis (Acute) Cirrhosis (Acute) COPD (chronic obstructive pulmonary disease) (Chronic) Diabetes (Chronic) HLD (hyperlipidemia) (Chronic) HTN (hypertension) (Chronic) Hx TIA/stroke w/o resid (Resolved) SAMMI on CPAP (Chronic) Venous stasis ulcer (Chronic) Social History Smoking/Tobacco Use Status: Former Tobacco Use Alcohol Intake: never Substance use type: does not use
--- NOTE | 2019-03-17 13:50 | PDOC.HHF2F ---
1. Encounter Date and Reason I certify that SHELLY AGUSTIN was seen by Alcides Amaya on 03/17/19 and that I had a [id number] encounter with this patient that meets the physician face to face encounter requirements. 2. Clinical Findings Supporting Skilled Need and Homebound Status I certify that home health services are medically necessary, include either intermittent longterm and/or physical/speech therapy, and that this patient is homebound in that absences from the home require considerable and taxing effort and are infrequent or of short duration, or are attributable to the need to receive medical care. [X] (a) Attached documentation from encounter provides clinical findings supporting skilled need and homebound status (including what assistance patient requires to leave the home). The encounter with the patient was in whole, or in part, for the following medical condition, which is the primary reason for home health care: RIGHT LEG CELLULITIS Detention: Wound Care, medication check. Please ensure antibiotic therapy continues until conclusion of course. Wound Vac change QMond, Wednesday, Wednesday. If failure of Wound Vac, please ensure wet to dry dressing changes. Patient to stop Citalopram while on antibiotic therapy - may resume after completion of course of antibiotic therapy. Physical Therapy: Speech Therapy: Homebound: 3. Certification and Authentication I certify that I composed the above information based on my clinical judgement relating to this patient's medical condition and, if applicable, clinical findings communicated to me by the NPP or inpatient physician who performed the Home Health Referral. All further orders will be obtained through __Soledad Slaughter (Community Based Physician - PCP)
[2019-03-17] MEDS: traMADol 50 MG TAB PO (14:32)
== END 2019-03-17 17:15 | disposition home health service (06) | DRG 571 ==
LOC: ER 19:40 → MS 03-14 07:48
PROVIDERS: Podiatrist; Admitting Provider Family Medicine; Emergency Provider Emergency Medicine; PCP Family Medicine; Visit Provider Internal Medicine
PROC: 0JBN0ZZ Excision of Right Lower Leg Subcutaneous Tissue and Fascia, Open Approach (ICD-10-PCS; CPT 11045; principal; 2019-03-15 13:00)
DX: L03.115 Cellulitis of right lower limb (principal); I83.218 Varicose veins of right lower extremity with both ulcer of other part of lower extremity and inflammation; L97.819 Non-pressure chronic ulcer of other part of right lower leg with unspecified severity; I10 Essential (primary) hypertension; Z86.73 Personal history of transient ischemic attack (TIA), and cerebral infarction without residual deficits; E11.9 Type 2 diabetes mellitus without complications; G47.33 Obstructive sleep apnea (adult) (pediatric); J44.9 Chronic obstructive pulmonary disease, unspecified; K21.9 Gastro-esophageal reflux disease without esophagitis; Z79.84 Long term (current) use of oral hypoglycemic drugs; F32.9 Major depressive disorder, single episode, unspecified; Z71.3 Dietary counseling and surveillance; E11.628 Type 2 diabetes mellitus with other skin complications
CPT/HCPCS: 11045; 11042; 97607; 36415; 80048; 80053; 84145; 85652; 87040; 93005; 94640; 96361; 96365; 96375; 99219; 99231; 99232; 99233; 99239; 99285; J1650; 73590; 83036; 83605; 83735; 85025; 86140; 93010; 99226; G0378; J1885; J2543; J3010; J3370; J3490

== ENCOUNTER 2019-03-31 08:20 | Day surgery (SDC) | payer MEDICARE, SELFPAY ==
[2019-03-31 08:40] VITALS: BP 133/57; PULSE 74; RESP 16; TEMP 36.2; O2SAT 98
[2019-03-31] MEDS: Lactated Ringers 1,000 ML 80 ML IV (09:06)
[2019-03-31] MEDS: ceFAZolin 1 GM/50 ML BAG IVPB (10:54)
[2019-03-31] MEDS: Lidocaine 1% Multi-Dose 50 ML VIAL (10:58)
[2019-03-31] MEDS: Bupivacaine 0.5% Pres-Free 30 ML VIAL (10:58)
--- NOTE | 2019-03-31 11:38 | PDOC.DSDIS_ITS ---
Discharge Plan Disposition Patient Disposition: HOME Condition: Good Discharge Details Reason For Visit: DEBRIDEMENT Attending Provider: Allan Christianson Primary Care Provider: Soledad Slaughter [place] Meds and New Rx's Prescriptions: No Action citalopram 20 MG tablet 10 mg PO DAILY RF: 0 Diabetic Shoe w Lift Qty: 1 RF: 0 Diabetic Shoe w Lift RF: 0 atorvastatin [Lipitor] 40 MG tablet 40 mg PO DAILY Qty: 0 RF: 0 furosemide 20 MG tablet 20 mg PO BID RF: 0 aspirin 81 MG tablet,delayed release (DR/EC) 81 mg PO DAILY Qty: 100 RF: 0 metolazone 2.5 mg Tablet 2.5 mg PO .TWICE WEEKLY RF: 0 metformin 500 mg Tablet 1,000 mg PO BID RF: 0 clonidine HCl 0.3 mg Tablet 0.3 mg PO TID RF: 0 cyanocobalamin (vitamin B-12) [Vitamin B-12] 1,000 mcg Tablet 1,000 mcg PO BID RF: 0 clopidogrel 75 mg Tablet 75 mg PO DAILY RF: 0 allopurinol 100 mg Tablet 100 mg PO DAILY RF: 0 tramadol 50 mg Tablet 50 mg PO TID PRNRF: 0 acetaminophen [Tylenol Arthritis Pain] 650 mg Tablet Extended Release 650 mg PO Q4H PRN PRNRF: 0 amlodipine 10 mg Tablet 10 mg PO DAILY RF: 0 fluticasone propion-salmeterol [Advair Diskus] 500-50 mcg/dose Blister With Device 1 inh INHALATION BID RF: 0 lisinopril 30 mg Tablet 30 mg PO DAILY RF: 0 naproxen 500 mg Tablet 500 mg PO BID PRNRF: 0 Spiriva with HandiHaler 18 mcg Capsule, W/Inhalation Device 1 cap INHALATION DAILY RF: 0 pantoprazole 40 mg Tablet,Delayed Release (Dr/Ec) 40 mg PO DAILY@0730 Qty: 30 RF: 0 oxycodone 5 mg Tablet 5 mg PO Q4H PRN PRNQty: 15 RF: 0 acidophilus-pectin, citrus 25 million cell -100 mg Tablet 1 cap PO BID Qty: 60 RF: 0 Discharge Instructions Stand Alone Forms: Meghan's Instructions-DSU, Krista Sterling (DSU) Activity:: Elevate Remove Dressings/Wound Care:: Do Not Remove Shower/Bathe:: Cover Diet:: Normal Diet Discharge Orders Discharge Orders: Discharge Order (Routine); Ordered 03/31/19 Ordered By: Allan Christianson
[2019-03-31 12:35] VITALS: BP 124/52; PULSE 67; RESP 18; TEMP 35.9; O2SAT 97
--- NOTE | 2019-03-31 12:47 | ROE_ITS ---
DATE OF PROCEDURE: March 31, 2019 PREOPERATIVE DIAGNOSIS: Chronic venous stasis wound, right lower extremity. POSTOPERATIVE DIAGNOSIS: Same. PROCEDURE: Debridement to fascia wound with application of Apligraf and wound VAC. SURGEON: Allan Christianson, Thomas.P.M. ANESTHESIA: IV general, local block of the wound utilizing 6 cc's 50:50 mixture of 1% Lidocaine plai n, 0.5% Marcaine plain. ANESTHESIA PROVIDER: Chris Hughes CRNA OPERATIVE INDICATIONS: Dionna is a 78-year-old white male with a chronic venous stasis wound on his right lower extremity who's in the process of healing. He is being brought to the OR for debridemen t of the wound and application of an Apligraf. He understands that this may be a series totalling up to five over the next few weeks. Potential risks and complications were discussed, including pain, scarring, infection, wound chronicity worsening. Informed consent has been obtained. No promises ma de to the final outcome of surgery. REPORT OF OPERATION: Dionna was brought to the operative suite, placed in the supine position. Th e wound on the right leg was cleansed with normal saline and the skin gently dried. It measures 6.5 cm x 4.5 cm and goes to fascia. Good granulation tissue is noted coming in from the periphery, but t he central portion remains poorly vascular, but there is no sign of sepsis at this time. One of the peroneal tendon sheaths is now noted but still remains intact. The wound was copiously irrigated and gently dried. Betadine solution was applied around the wound margins. With a pickup and a #10 scal pel all of the devitalized and necrotic tissue was removed from the wound. Good bleeding was encount ered. Hemostasis was acquired with compression. Once the wound was dry and appeared clean it was re melissa for application of the graft. The Apligraf was obtained; it was viable. The graft was removed, inverted. It was perforated to allow moisture or drainage to come through. It was subsequently appl ied onto the wound bed with an excellent fit being identified. Xeroform gauze was then applied. Thi s was trimmed to slightly larger than the wound. A layer of sheeting was then applied over this, fol lowed by completion of the wound VAC application. The wound VAC was subsequently engaged and good pr essure at 125 mmHg was obtained. Xeroform x2, BOYD wraps x2 were applied from the base of the toes to the tibial tuberosity. Dionna left the OR with vital signs stable, vascular status intact, wound V AC functioning. Home Health will visit him on Wednesday and perform the first wound VAC change. I w ill then schedule him to return for a reapplication the following week.
== END 2019-03-31 13:05 | disposition home or self-care (01) ==
PROVIDERS: PCP Family Medicine; Visit Provider Podiatrist
PROC: (CPT 15271; principal; 2019-03-31 10:30)
DX: I83.018 Varicose veins of right lower extremity with ulcer other part of lower leg (principal); L97.819 Non-pressure chronic ulcer of other part of right lower leg with unspecified severity; E11.9 Type 2 diabetes mellitus without complications; I10 Essential (primary) hypertension; J44.9 Chronic obstructive pulmonary disease, unspecified; K21.9 Gastro-esophageal reflux disease without esophagitis; G47.33 Obstructive sleep apnea (adult) (pediatric)
CPT/HCPCS: 15271; 15002; 15272; J0690; J1100; J1885; J2250; J2405; J3010; Q4101

== ENCOUNTER 2019-04-14 07:34 | Day surgery (SDC) | payer MEDICARE, SELFPAY ==
[2019-04-14 08:05] VITALS: BP 128/48; PULSE 63; RESP 16; TEMP 36; O2SAT 98
--- NOTE | 2019-04-14 10:18 | PDOC.DSDIS_ITS ---
Discharge Plan Disposition Patient Disposition: HOME Condition: Good Discharge Details Reason For Visit: DEBRIDEMENT Attending Provider: Allan Christianson Primary Care Provider: Soledad Slaughter Sherwood Meds and New Rx's Prescriptions: Continued citalopram 20 MG tablet 10 mg PO DAILY RF: 0 Diabetic Shoe w Lift Qty: 1 RF: 0 Diabetic Shoe w Lift RF: 0 atorvastatin [Lipitor] 40 MG tablet 40 mg PO DAILY Qty: 0 RF: 0 furosemide 20 MG tablet 20 mg PO BID RF: 0 aspirin 81 MG tablet,delayed release (DR/EC) 81 mg PO DAILY Qty: 100 RF: 0 metolazone 2.5 mg Tablet 2.5 mg PO .TWICE WEEKLY RF: 0 metformin 500 mg Tablet 1,000 mg PO BID RF: 0 clonidine HCl 0.3 mg Tablet 0.3 mg PO TID RF: 0 cyanocobalamin (vitamin B-12) [Vitamin B-12] 1,000 mcg Tablet 1,000 mcg PO BID RF: 0 clopidogrel 75 mg Tablet 75 mg PO DAILY RF: 0 allopurinol 100 mg Tablet 100 mg PO DAILY RF: 0 tramadol 50 mg Tablet 50 mg PO TID PRNRF: 0 acetaminophen [Tylenol Arthritis Pain] 650 mg Tablet Extended Release 650 mg PO Q4H PRN PRNRF: 0 amlodipine 10 mg Tablet 10 mg PO DAILY RF: 0 fluticasone propion-salmeterol [Advair Diskus] 500-50 mcg/dose Blister With Device 1 inh INHALATION BID RF: 0 lisinopril 30 mg Tablet 30 mg PO DAILY RF: 0 naproxen 500 mg Tablet 500 mg PO BID PRNRF: 0 Spiriva with HandiHaler 18 mcg Capsule, W/Inhalation Device 1 cap INHALATION DAILY RF: 0 pantoprazole 40 mg Tablet,Delayed Release (Dr/Ec) 40 mg PO DAILY@0730 Qty: 30 RF: 0 oxycodone 5 mg Tablet 5 mg PO Q4H PRN PRNQty: 15 RF: 0 acidophilus-pectin, citrus 25 million cell -100 mg Tablet 1 cap PO BID Qty: 60 RF: 0 Discharge Instructions Activity:: Activity as Tolerated Remove Dressings/Wound Care:: Do Not Remove Shower/Bathe:: Cover Diet:: Normal Diet Discharge Orders Discharge Orders: Discharge Order (Routine); Ordered 04/14/19 Ordered By: Allan Christianson DS: Diagnosis Discharge Diagnosis (1) Ulcer of right lower leg: Start date: 04/14/19 Start time: 10:19 Status: Acute
--- NOTE | 2019-04-14 11:42 | ROE_ITS ---
DATE OF PROCEDURE: April 14, 2019 PREOPERATIVE DIAGNOSIS: Chronic venous stasis ulcer lateral distal right leg. POSTOPERATIVE DIAGNOSIS: Same. PROCEDURE: Debridement to fascia with application of Apligraf and wound VAC. Wound size 5 cm x 7 c m SURGEON: Allan Christianson D.P.M. OPERATIVE INDICATIONS: 78-year-old male with chronic venous stasis disease with chronic venous stasi s wound affecting the lateral aspect of his right lower leg. He presents for debridement of wound wi th application of Apligraf. He understands risks and complications. He understands the nature of th e disease and the fact that multiple debridements will be necessary. Informed consent was obtained. No promises made to the final outcome of surgery. REPORT OF PROCEDURE: Dionna was brought to the operative suite, placed in the supine position. The right foot and leg was washed with Hibiclens and rinsed with normal saline. The skin was dried. Th e wound has several areas of slough in the central region going to fascia. The majority of the wound , however, is red and granular. The wound measures 5 cm x 7 cm, is fairly oval. The wound margins s how no undermining or necrosis. No tendon was observed at this time within the wound. There are no active signs of infection. With a scalpel and pick-up the slough and poorly-granulated regions of th e wound were sharply debrided. Pinpoint bleeding was noted, controlled through pressure. Upon debri domenica the wound looked healthier, ready for grafting. The Apligraf was removed; it was placed onto the wound after it was perforated to allow drainage. ADAPTIC was applied, followed by the black spo nge and dressings. The wound VAC was reapplied; good seal was appreciated. Pressure is maintained a t 125 mmHg continuous. Two rolls of Kerlix and a 4-inch BOYD wrap was then applied from the base of t he toes to the tibial tuberosity. Dionna left the procedure room in good condition. Home Health wi ll continue to perform wound care and we anticipate a return to the OR for another round of Apligraf in 1 to 2 weeks. cc: Soledad Slaughter M.D.
== END 2019-04-14 11:00 | disposition home or self-care (01) ==
PROVIDERS: PCP Family Medicine; Visit Provider Podiatrist
PROC: (CPT 15271; principal; 2019-04-14 07:30)
DX: I83.018 Varicose veins of right lower extremity with ulcer other part of lower leg (principal); L97.819 Non-pressure chronic ulcer of other part of right lower leg with unspecified severity; E11.9 Type 2 diabetes mellitus without complications; K21.9 Gastro-esophageal reflux disease without esophagitis; I10 Essential (primary) hypertension; G47.33 Obstructive sleep apnea (adult) (pediatric)
CPT/HCPCS: 15271; 15002; 97607; 15272; J1100; Q4101

== ENCOUNTER 2019-04-14 11:24 | Outpatient (REF) | payer MEDICARE, SELFPAY ==
[2019-04-14 19:12] LABS: Anion Gap 12.1 mmol/L (3-11); BUN 46 mg/dL (7-18); CO2 20.9 mmol/L (21.0-32.0); CREATININE 1.55 mg/dL (0.70-1.30); Calcium 8.7 mg/dL (8.5-10.1); Chloride 104 mmol/L (98-107); Estimated GFR 43.58 (mL/min/1.73m2); Glucose 225 mg/dL (70-100); Potassium 5.2 mmol/L (3.5-5.1); Sodium 137 mmol/L (136-145)
== END 2019-04-14 11:44 ==
LOC: NCHCN 11:24
PROVIDERS: PCP Family Medicine; Visit Provider Family Medicine
DX: I10 Essential (primary) hypertension (principal)
CPT/HCPCS: 80048

== ENCOUNTER 2019-04-21 07:38 | Day surgery (SDC) | payer MEDICARE, SELFPAY ==
[2019-04-21 08:07] VITALS: BP 125/47; PULSE 81; RESP 18; TEMP 36; O2SAT 99
--- NOTE | 2019-04-21 10:23 | W.PM.DSUDISC ---
Discharge Plan Disposition Patient Disposition: HOME Condition: Good Discharge Details Reason For Visit: DEBRIDEMENT Attending Provider: Allan Christianson Primary Care Provider: Soledad Slaughter Home Meds and New Rx's Prescriptions: No Action citalopram 20 MG tablet 10 mg PO DAILY RF: 0 Diabetic Shoe w Lift Qty: 1 RF: 0 Diabetic Shoe w Lift RF: 0 atorvastatin [Lipitor] 40 MG tablet 40 mg PO DAILY Qty: 0 RF: 0 furosemide 20 MG tablet 20 mg PO BID RF: 0 aspirin 81 MG tablet,delayed release (DR/EC) 81 mg PO DAILY Qty: 100 RF: 0 metolazone 2.5 mg Tablet 2.5 mg PO .TWICE WEEKLY RF: 0 metformin 500 mg Tablet 1,000 mg PO BID RF: 0 clonidine HCl 0.3 mg Tablet 0.3 mg PO TID RF: 0 cyanocobalamin (vitamin B-12) [Vitamin B-12] 1,000 mcg Tablet 1,000 mcg PO BID RF: 0 clopidogrel 75 mg Tablet 75 mg PO DAILY RF: 0 allopurinol 100 mg Tablet 100 mg PO DAILY RF: 0 tramadol 50 mg Tablet 50 mg PO TID PRNRF: 0 acetaminophen [Tylenol Arthritis Pain] 650 mg Tablet Extended Release 650 mg PO Q4H PRN PRNRF: 0 amlodipine 10 mg Tablet 5 mg PO DAILY RF: 0 fluticasone propion-salmeterol [Advair Diskus] 500-50 mcg/dose Blister With Device 1 inh INHALATION BID RF: 0 lisinopril 30 mg Tablet 30 mg PO DAILY RF: 0 naproxen 500 mg Tablet 500 mg PO BID PRNRF: 0 Spiriva with HandiHaler 18 mcg Capsule, W/Inhalation Device 1 cap INHALATION DAILY RF: 0 pantoprazole 40 mg Tablet,Delayed Release (Dr/Ec) 40 mg PO DAILY@0730 Qty: 30 RF: 0 oxycodone 5 mg Tablet 5 mg PO Q4H PRN PRNQty: 15 RF: 0 acidophilus-pectin, citrus 25 million cell -100 mg Tablet 1 cap PO BID Qty: 60 RF: 0 Discharge Instructions Activity:: Activity as Tolerated Remove Dressings/Wound Care:: Do Not Remove Shower/Bathe:: Cover Discharge Orders Discharge Orders: Discharge Order (Routine); Ordered 04/21/19 Ordered By: Allan Christianson
--- NOTE | 2019-04-21 11:57 | ROE_ITS ---
DATE OF PROCEDURE: April 21, 2019 PREOPERATIVE DIAGNOSIS: Chronic venous stasis ulceration, right lower extremity. POSTOPERATIVE DIAGNOSIS: Chronic venous stasis ulceration, right lower extremity. PROCEDURE: Debridement above fascia wound, right upper ankle with Apligraf application and wound VAC application. SURGEON: Allan Christianson D.P.M. ANESTHESIA: None. OPERATIVE INDICATIONS: 78-year-old white male with chronic ulceration, venous stasis type, to the [facility] leg. He is being brought to the O.R. for serial debridements and Apligraf application. He under stands potential risks and complications pertaining to pain, scarring, infection, the need for revisi onal and additional wound applications, debridements, trials and tribulations. Informed consent has been obtained. REPORT OF PROCEDURE: Dionna was brought to the operative suite, placed in the supine position. The right foot was prepped with Hibiclens and rinsed with normal saline. The skin was dried. Attention was directed to the wound, which hasn't reduced in size; it's still measuring in the vicini ty of 5.5 x 7.5 cm, but the change is that it is now almost at level of skin. The depth has signific antly improved and that is a very positive finding. There was some debris and slough around the jyoti in of the wound, a small area along the proximal posterior aspect of the wound at position 10, which was sharply debrided with a #10 scalpel. Otherwise the base of the wound is red and granular. Photo graph was obtained and included in his EMR. The periwound area was then treated with Povidine-iodine and the Apligraf graft was then removed from its packaging. The out date was inspected; the graft w as good and this was applied directly onto the wound. It was trimmed to fit appropriately. ADAPTIC was applied over that, also trimmed appropriately followed by black sponge and the wound VAC. The wo und VAC was inflated at 125 mmHg continuous suction. Good suction was identified. Dionna left the O.R. with vital signs stable, wound and vitals intact. He will be followed by Home Health as well as me. cc: Soledad Slaughter M.D.
== END 2019-04-21 11:01 | disposition home or self-care (01) ==
PROVIDERS: PCP Family Medicine; Visit Provider Podiatrist
PROC: (CPT 15271; principal; 2019-04-21 08:30)
DX: I83.013 Varicose veins of right lower extremity with ulcer of ankle (principal); L97.311 Non-pressure chronic ulcer of right ankle limited to breakdown of skin
CPT/HCPCS: 15271; 15002; 97607; 15272; J1100; Q4101

== ENCOUNTER 2019-05-03 13:29 | Outpatient (REF) | payer MEDICARE, SELFPAY ==
[2019-05-03 19:30] LABS: Anion Gap 12.6 mmol/L (3-11); BUN 27 mg/dL (7-18); CO2 22.4 mmol/L (21.0-32.0); CREATININE 1.39 mg/dL (0.70-1.30); Calcium 8.4 mg/dL (8.5-10.1); Chloride 107 mmol/L (98-107); Estimated GFR 49.42 (mL/min/1.73m2); Glucose 179 mg/dL (70-100); Potassium 4.6 mmol/L (3.5-5.1); Sodium 142 mmol/L (136-145)
[2019-05-03 19:33] LABS: Hemoglobin A1C 8.6 % (4.5-6.2)
== END 2019-05-03 13:49 ==
LOC: NCHCN 13:29
PROVIDERS: PCP Family Medicine; Visit Provider Family Medicine
DX: E11.9 Type 2 diabetes mellitus without complications (principal)
CPT/HCPCS: 80048; 83036

== ENCOUNTER 2019-05-07 17:11 | Emergency (ER) | payer MEDICARE, SELFPAY ==
[2019-05-07 17:20] VITALS: BP 155/64; PULSE 80; RESP 10; TEMP 36.5; O2SAT 97
--- NOTE | 2019-05-07 19:23 | ED.GENADUL_ITS ---
Discharge Plan Disposition Patient Disposition: HOME Condition: Improving Discharge Details Chief Complaint: Laceration Clinical Impression: Finger laceration, Skin tear of left upper extremity, Superficial laceration of knee Primary Care Provider: Soledad Slaughter ED Provider: Yvan Dubon Home Meds and New Rx's Prescriptions: No Action citalopram 20 MG tablet 10 mg PO DAILY RF: 0 Diabetic Shoe w Lift Qty: 1 RF: 0 Diabetic Shoe w Lift RF: 0 atorvastatin [Lipitor] 40 MG tablet 40 mg PO DAILY Qty: 0 RF: 0 furosemide 20 MG tablet 20 mg PO BID RF: 0 aspirin 81 MG tablet,delayed release (DR/EC) 81 mg PO DAILY Qty: 100 RF: 0 metolazone 2.5 mg Tablet 2.5 mg PO .TWICE WEEKLY RF: 0 metformin 500 mg Tablet 1,000 mg PO BID RF: 0 clonidine HCl 0.3 mg Tablet 0.3 mg PO TID RF: 0 cyanocobalamin (vitamin B-12) [Vitamin B-12] 1,000 mcg Tablet 1,000 mcg PO BID RF: 0 clopidogrel 75 mg Tablet 75 mg PO DAILY RF: 0 allopurinol 100 mg Tablet 100 mg PO DAILY RF: 0 tramadol 50 mg Tablet 50 mg PO TID PRNRF: 0 acetaminophen [Tylenol Arthritis Pain] 650 mg Tablet Extended Release 650 mg PO Q4H PRN PRNRF: 0 amlodipine 10 mg Tablet 5 mg PO DAILY RF: 0 fluticasone propion-salmeterol [Advair Diskus] 500-50 mcg/dose Blister With Device 1 inh INHALATION BID RF: 0 lisinopril 30 mg Tablet 30 mg PO DAILY RF: 0 naproxen 500 mg Tablet 500 mg PO BID PRNRF: 0 Spiriva with HandiHaler 18 mcg Capsule, W/Inhalation Device 1 cap INHALATION DAILY RF: 0 pantoprazole 40 mg Tablet,Delayed Release (Dr/Ec) 40 mg PO DAILY@0730 Qty: 30 RF: 0 oxycodone 5 mg Tablet 5 mg PO Q4H PRN PRNQty: 15 RF: 0 acidophilus-pectin, citrus 25 million cell -100 mg Tablet 1 cap PO BID Qty: 60 RF: 0 Discharge Instructions Instructions: Acute Wound Care (ED), Finger Laceration (ED), Skin Tear (ED), Steristrips (ED) Additional Instructions: Please keep initial bandages on for the first 48 hours. Then have your home health nurse continue to monitor these daily for any signs of infection. Otherwise continue to take your medications including your new antibiotic as prescribed. Feel free to return to the emergency department for any new or significant worsening of symptoms or follow-up with your primary care provider as needed for reassessment. Return to the emergency department in 10 days for suture removal if wounds are healing well. Referrals: [facility] Emergency Dept. [Outside] (10 days for suture removal) Discharge Data Discharge Date/Time-TO BE ENTERED AT DEPARTURE: 05/07/19 19:57 Medical Decision Making Patient presenting to the emergency department for chief complaint of mechanical fall with lacerations and abrasions. Patient has a significant skin tear to left elbow with full range of motion no bony prominence tenderness no deep structure injury. Patient also has small flap superficial laceration to anterior surface of left knee but again is weightbearing no bony tenderness otherwise fine. Patient does have a 2.5 cm flap laceration to his left fifth digit. This is right over the PIP. Digital block technique was used with 3 mL's of 1% lidocaine. Wound was thoroughly irrigated and very minimal amount of debris was noted and removed. Does appear that tendon sheath was visible but no obvious tendon damage. Wound was closed with #7 5-0 Prolene simple interrupted sutures. Wound was well approximated. Bacitracin and sterile gauze applied afterwards. staff research scientist appropriately cleansed skin tear and superficial abrasion of the knee and Steri-Strips were utilized to approximate wound edges. Patient tetanus was 7 years ago and given multiple wounds and deep wound to finger plan to update tetanus. Patient states that he is already on antibiotic per Dr. Kumar. Return precautions discussed. Patient has home health nursing and he was instructed to inform them of the wounds to have them continue to check on them. After discussion of diagnosis and plan of care patient and family have no further needs, questions, or concerns and states clear understanding to return to the emergency department for any worsening symptoms. HPI General Mode of arrival: ambulatory . Date/Time Provider Initiated Documentation: 05/07/19 17:30 . Limitations to Documentation: no limitations . Information obtained by: patient and RN notes reviewed . History of Present Illness 78 year old M presents to the emergency department with the chief complaint of Mechanical fall, laceration abrasions, described as mild, with intensity rated at 3. Quality is described as aching, and is localized to the left and upper extremity. Patient started experiencing this hour(s) (1) and it has been constant. Patient notes no other symptoms.. Patient did receive the following treatments prior to arrival, none Related Data Home Medications Medication Instructions Recorded Confirmed citalopram 10 mg PO DAILY tab-cap NS 12/02/12 04/21/19 atorvastatin [Lipitor] 40 mg PO DAILY #0 03/28/15 04/21/19 furosemide 20 mg PO BID tab 03/11/16 04/21/19 aspirin 81 mg PO DAILY #100 tablet. 04/05/17 04/21/19 Spiriva with HandiHaler 1 cap INHALATION DAILY 03/13/19 04/21/19 acetaminophen [Tylenol Arthritis 650 mg PO Q4H PRN PRN 03/13/19 04/21/19 Pain] allopurinol 100 mg PO DAILY 03/13/19 04/21/19 amlodipine 5 mg PO DAILY 03/13/19 04/21/19 clonidine HCl 0.3 mg PO TID 03/13/19 04/21/19 clopidogrel 75 mg PO DAILY 03/13/19 04/21/19 cyanocobalamin (vitamin B-12) 1,000 mcg PO BID 03/13/19 04/21/19 [Vitamin B-12] fluticasone propion-salmeterol 1 inh INHALATION BID 03/13/19 04/21/19 [Advair Diskus] lisinopril 30 mg PO DAILY 03/13/19 04/21/19 metformin 1,000 mg PO BID 03/13/19 04/21/19 metolazone 2.5 mg PO .TWICE WEEKLY 03/13/19 04/21/19 naproxen 500 mg PO BID PRN 03/13/19 04/21/19 tramadol 50 mg PO TID PRN 03/13/19 04/21/19 acidophilus-pectin, citrus 1 cap PO BID #60 tab 03/17/19 04/21/19 oxycodone 5 mg PO Q4H PRN PRN #15 tab 03/17/19 04/21/19 pantoprazole 40 mg PO DAILY@0730 #30 tab 03/17/19 04/21/19 Previous Rx's Medication Instructions Recorded atorvastatin [Lipitor] 40 mg PO DAILY #0 03/28/15 furosemide 20 mg PO BID tab 03/11/16 aspirin 81 mg PO DAILY #100 tablet. 04/05/17 acidophilus-pectin, citrus 1 cap PO BID #60 tab 03/17/19 oxycodone 5 mg PO Q4H PRN PRN #15 tab 03/17/19 pantoprazole 40 mg PO DAILY@0730 #30 tab 03/17/19 Allergies Allergy/AdvReac Type Severity Reaction Status Date / Time cephalexin AdvReac Intermediate genitourinary Verified 04/21/19 08:06 edema General Stated Complaint: Laceration MAURILIO: 3 Review of Systems Constitutional Denies headache(s) ENT Denies headache(s) Cardiovascular Denies syncope and Denies lightheadedness Musculoskeletal Denies deformity, Denies limited range of motion and Denies numbness Integumentary/Breasts Reports as per HPI Neurologic Denies syncope, Denies headache(s), Denies focal weakness, Denies numbness, Denies sensory deficit and Denies paresthesias [facility] Medical History Cellulitis (Acute) Cirrhosis (Acute) COPD (chronic obstructive pulmonary disease) (Chronic) Diabetes (Chronic) HLD (hyperlipidemia) (Chronic) HTN (hypertension) (Chronic) Hx TIA/stroke w/o resid (Resolved) SAMMI on CPAP (Chronic) Venous stasis ulcer (Chronic) Surgical History H/O rectal sphincterotomy (Acute) History of appendectomy (Chronic) History of cholecystectomy (Chronic) History of surgery (Acute) Debridement of right leg wound with Apligraf History of total right hip arthroplasty (Acute) Family History Other Neoplasm Stroke Social History Smoking/Tobacco Use Status: Former Tobacco Use Quit Date: 03/06/84 Alcohol Intake: never Drug use: Never Substance use type: does not use Do you feel safe at home: Yes Do you feel safe in your relationship?: Yes Exam Const General: cooperative and no acute distress Orientation: alert, awake and oriented x3 Limitations: mental status not altered Resp Effort & Inspection: normal respiratory effort and able to speak in complete sentences Cardio Rate: regular rate Rhythm: regular rhythm Skin Trauma: abrasion (Left anterior knee), laceration left lateral 5th finger linear, flap, actively bleeding, involves subcutaneous tissue, motor nerve f unction intact and sensation intact; no pulsatile bleeding and not contaminated and other (Skin flap to left upper extremity) Neuro General: alert, awake, oriented x3 and no focal motor deficits Extrem General: normal exam except as noted Course Vital Signs Temperature 36.5 C 05/07/19 17:20 Pulse 80 05/07/19 17:20 Respiratory Rate 10 L 05/07/19 17:20 Blood Pressure 155/64 H 05/07/19 17:20 Pulse Oximetry 97 05/07/19 17:20 Temperature 36.5 C 05/07/19 17:20 Temperature Source Skin 05/07/19 17:20 Pulse 80 05/07/19 17:20 Respiratory Rate 10 L 05/07/19 17:20 Blood Pressure 155/64 H 05/07/19 17:20 Blood Pressure Position Sitting 05/07/19 17:20 Pulse Oximetry 97 05/07/19 17:20 Oxygen Delivery Method Room Air 05/07/19 17:20 Oxygen Flow Rate 0 05/07/19 17:20 Pain Level 3 05/07/19 17:20
[2019-05-07] MEDS: Tetanus & Diphtheria Tox,ADULT 0.5 ML VIAL IM (19:35)
== END 2019-05-07 19:57 | disposition home or self-care (01) ==
PROVIDERS: Emergency Provider Nurse Practitioner Family; PCP Family Medicine
DX: S61.217A Laceration without foreign body of left little finger without damage to nail, initial encounter (principal); S51.012A Laceration without foreign body of left elbow, initial encounter; S81.022A Laceration with foreign body, left knee, initial encounter; E11.9 Type 2 diabetes mellitus without complications; J44.9 Chronic obstructive pulmonary disease, unspecified; I10 Essential (primary) hypertension; W01.0XXA Fall on same level from slipping, tripping and stumbling without subsequent striking against object, initial encounter; Z87.891 Personal history of nicotine dependence; Z79.84 Long term (current) use of oral hypoglycemic drugs
CPT/HCPCS: 12001; 99283

== ENCOUNTER → 2019-05-24 10:45 | Outpatient (BNVA) | payer MEDICARE, SELFPAY | PROVIDERS: PCP Family Medicine; Referring Provider Family Medicine; Visit Provider Surgery | DX: E08.622 Diabetes mellitus due to underlying condition with other skin ulcer (principal); L97.912 Non-pressure chronic ulcer of unspecified part of right lower leg with fat layer exposed; Z51.89 Encounter for other specified aftercare; E66.9 Obesity, unspecified; I10 Essential (primary) hypertension; I83.11 Varicose veins of right lower extremity with inflammation; I83.12 Varicose veins of left lower extremity with inflammation | CPT/HCPCS: 99212; 99214 ==

== ENCOUNTER 2019-07-03 20:01 | Outpatient (REF) | payer MEDICARE, SELFPAY ==
[2019-07-03 18:35] LABS: Anion Gap 9.3 mmol/L (3-11); BUN 18 mg/dL (7-18); CO2 26.7 mmol/L (21.0-32.0); CREATININE 1.23 mg/dL (0.70-1.30); Calcium 9.3 mg/dL (8.5-10.1); Chloride 104 mmol/L (98-107); Estimated GFR 56.91 (mL/min/1.73m2); Glucose 308 mg/dL (70-100); Potassium 4.1 mmol/L (3.5-5.1); Sodium 140 mmol/L (136-145)
[2019-07-03 18:42] LABS: Hemoglobin A1C 8.7 % (4.5-6.2)
== END 2019-07-03 20:21 ==
LOC: NCHCN 20:01
PROVIDERS: PCP Family Medicine; Visit Provider Family Medicine
DX: E11.9 Type 2 diabetes mellitus without complications (principal); I10 Essential (primary) hypertension
CPT/HCPCS: 80048; 83036

== ENCOUNTER 2019-09-13 16:00 | Emergency (ER) | payer MEDICARE, SELFPAY ==
[2019-09-13 16:19] VITALS: BP 168/95; PULSE 86; RESP 22; TEMP 36.5; O2SAT 97
--- NOTE | 2019-09-13 16:38 | W.ED.GENAD ---
Discharge Plan Disposition Patient Disposition: HOME Condition: Stable Discharge Details Chief Complaint: RespSymp Clinical Impression: Community acquired pneumonia Primary Care Provider: Soledad Slaughter ED Provider: Reina Cordoba Home Meds and New Rx's Prescriptions: New doxycycline hyclate 100 mg capsule 100 mg PO BID Qty: 20 RF: 0 albuterol sulfate [Proventil HFA] 90 mcg/actuation HFA aerosol inhaler 2 puff IH Q6H PRN (Reason: shortness of breath or wheezing) Qty: 8.5 RF: 0 No Action citalopram 20 MG tablet 10 mg PO DAILY RF: 0 Diabetic Shoe w Lift Qty: 1 RF: 0 Diabetic Shoe w Lift RF: 0 atorvastatin [Lipitor] 40 MG tablet 40 mg PO DAILY Qty: 0 RF: 0 furosemide 20 MG tablet 20 mg PO BID RF: 0 aspirin 81 MG tablet,delayed release (DR/EC) 81 mg PO DAILY Qty: 100 RF: 0 metolazone 2.5 mg Tablet 2.5 mg PO .TWICE WEEKLY RF: 0 metformin 500 mg Tablet 1,000 mg PO BID RF: 0 clonidine HCl 0.3 mg Tablet 0.3 mg PO TID RF: 0 cyanocobalamin (vitamin B-12) [Vitamin B-12] 1,000 mcg Tablet 1,000 mcg PO BID RF: 0 clopidogrel 75 mg Tablet 75 mg PO DAILY RF: 0 allopurinol 100 mg Tablet 100 mg PO DAILY RF: 0 acetaminophen [Tylenol Arthritis Pain] 650 mg Tablet Extended Release 650 mg PO Q4H PRN PRNRF: 0 amlodipine 10 mg Tablet 5 mg PO DAILY RF: 0 fluticasone propion-salmeterol [Advair Diskus] 500-50 mcg/dose Blister With Device 1 inh INHALATION BID RF: 0 lisinopril 30 mg Tablet 30 mg PO DAILY RF: 0 naproxen 500 mg Tablet 500 mg PO BID PRNRF: 0 Spiriva with HandiHaler 18 mcg Capsule, W/Inhalation Device 1 cap INHALATION DAILY RF: 0 Discharge Instructions Instructions: Community Acquired Pneumonia (ED) Additional Instructions: Drink plenty of fluids. Use your daily prescriptions as previously prescribed including your daily inhalers. Use albuterol inhaler as prescribed every 4-6 hours take 2 puffs if needed for persistent wheezing or for any shortness of breath. Use antibiotic as prescribed. Rest. Activities as tolerated. Please have prompt recheck with your primary care doctor Return for any alarming symptoms, worsening, increase in difficulty breathing, fatigue or weakness, fevers, shaking chills or if needed sooner. Medical Decision Making This is a 79-year-old patient with presentation to the emergency room today for 10 days of illness. Patient reports primarily concerned with nasal congestion and cough. Patient reports nasal congestion, mild sore throat which he attributes to coughing. No voice change or trismus. Patient has been eating and drinking without difficulty, has had a normal diet. Denies any associated flulike symptoms, nausea, vomiting, belly pain or diarrhea. Patient has had normal appetite. Energy has been normal. Patient reports a cough which is intermittently productive now associated with wheezing. Patient reports cough is been present for 10 days now is also associated with left-sided chest pain when coughing. Patient denies any back pain. Patient denies any dyspnea. Patient has been using his Spiriva and Advair at home. Symptoms continue despite use of these medications. Patient does have a history of COPD. Patient denies dizziness, weakness or fatigue. Denies shortness of breath. Patient denies fever, chills or malaise. No associated body ache. In general patient does appear well. Patient is mildly hypertension of which she does have a history. Vital signs otherwise are normal. No associated tachypnea or hypoxia. Afebrile. On exam patient has mild pharyngeal erythema. No sinus pain on exam. Patient does have diffuse wheezing with no significant increased respiratory effort. Plan of care includes DuoNeb for symptomatic relief as well as chest x-ray to rule out developing pneumonia. Patient agrees with plan of care Patient has a right basilar hazy opacity consistent with atelectasis, aspiration or infection. Given patient's clinical presentation I am concerned with the likelihood of pneumonia. Patient does feel improved after DuoNeb. Reevaluation of breath sounds reveals persistent wheezing. A second DuoNeb provided. Plan of care to treat this patient with doxycycline by mouth x10 days, provide a rescue inhaler in conjunction to continued use of Spiriva and Advair he already has at home. Offered admission to this patient and he declines would prefer outpatient management with antibiotics and close follow-up with his PCP. This will be the plan of care. Precautions discussed. Patient feels stable and comfortable for discharge at this time. The patient was stable and requested discharge. Prior to discharge, my usual and customary return precautions were reviewed with the patient - this included follow-up instructions and reasons to return to the Emergency Department if conditions worsens, does not improve as expected, or other new concerns arise. HPI General Date/Time Provider Initiated Documentation: 09/13/19 16:23. HPI Narrative: This is a 79-year-old gentleman presenting to the emergency room today for cough for the last 10 days. Patient's is currently ill with bronchitis and similar symptoms. Patient reports nasal congestion, minimal sore throat and cough. Patient now reports left-sided chest soreness when coughing. No chest pain at rest. Patient is reporting wheezing. Patient denies fever, chills, nausea, vomiting, diarrhea. No body ache. Patient concerned as cough is intermittently productive. Patient is compliant with both his Spiriva and Advair. History of COPD. Patient reports no significant malaise. Patient concerned mostly with persistence of cough lasting a week and a half now associated with wheezing and production. Patient also concerned with persistent nasal congestion. Denies ear pain, denies voice change eating and drinking without difficulty. Appetite normal. Energy normal. Related Data Home Medications Medication Instructions Recorded Confirmed citalopram 10 mg PO DAILY tab-cap NS 12/02/12 09/13/19 atorvastatin [Lipitor] 40 mg PO DAILY #0 03/28/15 09/13/19 furosemide 20 mg PO BID tab 03/11/16 09/13/19 aspirin 81 mg PO DAILY #100 tablet. 04/05/17 09/13/19 Spiriva with HandiHaler 1 cap INHALATION DAILY 03/13/19 09/13/19 acetaminophen [Tylenol Arthritis 650 mg PO Q4H PRN PRN 03/13/19 09/13/19 Pain] allopurinol 100 mg PO DAILY 03/13/19 09/13/19 amlodipine 5 mg PO DAILY 03/13/19 09/13/19 clonidine HCl 0.3 mg PO TID 03/13/19 09/13/19 clopidogrel 75 mg PO DAILY 03/13/19 09/13/19 cyanocobalamin (vitamin B-12) 1,000 mcg PO BID 03/13/19 09/13/19 [Vitamin B-12] fluticasone propion-salmeterol 1 inh INHALATION BID 03/13/19 09/13/19 [Advair Diskus] lisinopril 30 mg PO DAILY 03/13/19 09/13/19 metformin 1,000 mg PO BID 03/13/19 09/13/19 metolazone 2.5 mg PO .TWICE WEEKLY 03/13/19 09/13/19 naproxen 500 mg PO BID PRN 03/13/19 09/13/19 albuterol sulfate [Proventil HFA] 2 puff IH Q6H PRN #8.5 gm 09/13/19 doxycycline hyclate 100 mg PO BID #20 cap 09/13/19 Previous Rx's Medication Instructions Recorded atorvastatin [Lipitor] 40 mg PO DAILY #0 03/28/15 furosemide 20 mg PO BID tab 03/11/16 aspirin 81 mg PO DAILY #100 tablet. 04/05/17 albuterol sulfate [Proventil HFA] 2 puff IH Q6H PRN #8.5 gm 09/13/19 doxycycline hyclate 100 mg PO BID #20 cap 09/13/19 Allergies Allergy/AdvReac Type Severity Reaction Status Date / Time cephalexin AdvReac Intermediate genitourinary Verified 09/13/19 16:22 edema General Stated Complaint: RespSymp MAURILIO: 4 Review of Systems All systems reviewed & are unremarkable except as noted in HPI and below Constitutional Constitutional: Denies chills, Denies fatigue, Denies fever(s), Denies headache(s) and Denies malaise ENT Ears, Nose, Mouth, and Throat: Denies otalgia, Denies headache(s), Reports nasal congestion, Reports nasal discharge, Denies nasal obstruction, Denies sinus pain, Denies sinus pressure and Reports sore throat Cardiovascular Cardiovascular: Denies chest pain at rest and Denies dyspnea Respiratory Respiratory: Reports cough, Reports pain with cough, Denies dyspnea and Reports wheezing Gastrointestinal Gastrointestinal: Denies abdominal pain, Denies diarrhea, Denies nausea and Denies vomiting Neurologic Neurologic: Denies headache(s) Endocrine Endocrine: Denies fatigue Allergic/Immunologic Allergic/Immunologic: Reports wheezing [facility] Medical History Cellulitis (Acute) Cirrhosis (Acute) COPD (chronic obstructive pulmonary disease) (Chronic) Diabetes (Chronic) Diabetic ulcer of right lower leg associated with diabetes mellitus due to underlying condition, with fat layer exposed (Acute) HLD (hyperlipidemia) (Chronic) HTN (hypertension) (Chronic) Hx TIA/stroke w/o resid (Resolved) SAMMI on CPAP (Chronic) Renal insufficiency (Chronic) Venous stasis (Acute) Venous stasis ulcer (Chronic) right lateral calf Venous stasis ulcer of ankle limited to breakdown of skin (Acute) Social History Smoking/Tobacco Use Status: Former Tobacco Use Quit Date: 03/06/84 Alcohol Intake: never Drug use: Never Substance use type: does not use Do you feel safe at home: Yes Do you feel safe in your relationship?: Yes Exam Narrative Exam Narrative: CONST: Healthy appearing patient, in no acute distress. Well hydrated. Alert and oriented. HENMT: Head nomocephalic, normal to inspection. Atraumatic. Hearing grossly normal. TMs appear obscured by wax bilaterally. Mild pharyngeal erythema. Uvula midline. EYES: General normal appearance. Alignment normal. Eyelids normal. Conjunctiva normal. NECK: Normal visual inspection. FROM. Trachea midline. No Midline tenderness. No cervical lymphadenopathy present CHEST: Normal insepection of the chest. RESP: Normal respiratory effort. Speaking full sentences. No cough. No audible wheezing. No retractions. Breath sounds reveal diffuse wheezing. No obvious rhonchi. Breath sounds are equal bilaterally. CARDIO: No JVD. No murmur, regular rate and rhythm. SKIN: Normal. Dry. No rashes. NEURO: Alert and awake. Speech clear. PSYCH: Normal affect. Cooperative. Course Vital Signs Vital signs: Vital Signs Temperature 36.5 C 09/13/19 16:19 Pulse 86 09/13/19 16:19 Respiratory Rate 22 09/13/19 16:19 Blood Pressure 168/95 H 09/13/19 16:19 Pulse Oximetry 97 09/13/19 16:19 Temperature 36.5 C 09/13/19 16:19 Temperature Source Skin 09/13/19 16:19 Pulse 86 09/13/19 16:19 Respiratory Rate 22 09/13/19 16:19 Respiratory Effort 09/13/19 16:31 Respiratory Depth Normal 09/13/19 16:31 Blood Pressure 168/95 H 09/13/19 16:19 Blood Pressure Position Sitting 09/13/19 16:19 Pulse Oximetry 97 09/13/19 16:19 Oxygen Delivery Method Room Air 09/13/19 16:19 Oxygen Flow Rate 0 09/13/19 16:19 Pain Level 0 09/13/19 16:19
[2019-09-13] MEDS: Albuterol/Ipratropium 3 ML UPD VIAL UPD ×2 (17:00→18:55)
--- NOTE | 2019-09-13 17:10 | DI.RAD_ITS ---
EXAM: XR CHEST 2V PA LATERAL CLINICAL HISTORY: cough, r/o pneumonia COMPARISON: CHEST 2 VIEWS PA,LAT from 06/17/2016 FINDINGS: The heart appears mildly enlarged. There is loss of the diaphragmatic contour on the right on the AP views, right lower lobe infiltrate suspected. Otherwise lungs are grossly clear. No pleural effusi on seen. IMPRESSION: Question right basilar infiltrate. Appropriate follow-up studies requested.
--- NOTE | 2019-09-13 17:17 | DI.VRAD_ITS ---
PROCEDURE INFORMATION: Exam: XR Chest, 2 Views Exam date and time: 09/13/2019 4:38 PM Age: 79 years old Clinical indication: Patient HX: Cough R/O pneumonia TECHNIQUE: Imaging protocol: XR of the chest Views: 2 views. COMPARISON: CR CHEST 2 VIEWS PA,LAT 06/17/2016 4:16 PM FINDINGS: Lungs: Low lung volumes. Right basilar hazy opacity. Pleural space: Unremarkable. No pleural effusion. No pneumothorax. Heart/Mediastinum: Unchanged mildly enlarged cardiomediastinal silhouette. Bones/joints: Unremarkable. IMPRESSION: Right basilar hazy opacity consistent with atelectasis, aspiration, or infection. Dictated and Authenticated by: Vicente Ndiaye MD. Ordering:MASSIEL Huang MD
[2019-09-13 18:00] VITALS: BP 175/87; PULSE 94; RESP 16; TEMP 36.4; O2SAT 97
--- NOTE | 2019-09-13 19:38 | NUR.NOTE ---
Nursing Note: faxed referal to pcp 09/13/19
== END 2019-09-13 19:23 | disposition home or self-care (01) ==
PROVIDERS: Emergency Provider Physician Assistant; PCP Family Medicine
DX: R05 Cough (principal); R09.81 Nasal congestion; J44.0 Chronic obstructive pulmonary disease with (acute) lower respiratory infection; J18.9 Pneumonia, unspecified organism; Z87.891 Personal history of nicotine dependence; I10 Essential (primary) hypertension; E11.9 Type 2 diabetes mellitus without complications; Z79.84 Long term (current) use of oral hypoglycemic drugs
CPT/HCPCS: 94640; 99284; 71046; J7620

== ENCOUNTER → 2019-10-26 11:06 | Outpatient (BNVA) | payer MEDICARE, SELFPAY | PROVIDERS: PCP Family Medicine; Referring Provider Family Medicine; Visit Provider Nurse Practitioner Gerontology | DX: N48.0 Leukoplakia of penis (principal); N47.2 Paraphimosis | CPT/HCPCS: 99204; 99215 ==

== ENCOUNTER 2019-10-30 01:21 | Outpatient (CLI) | payer MEDICARE, SELFPAY ==
--- NOTE | 2019-10-30 | DI.RAD_ITS ---
EXAM: XR CHEST 2V PA LATERAL CLINICAL HISTORY: COMMUNITY ACQUIRED PNEUMONIA J18.9 COMPARISON: RIGHT SHOULDER COMPLETE from 03/09/2016 RIGHT RIBS TO INCLUDE CXR from 03/09/2016 XR CHEST 2V PA LATERAL from 09/13/2019 FINDINGS: Heart appears mildly enlarged. Hazy opacities again noted in right lung base on the frontal film, no t confirmed as focal consolidation on the lateral film. Findings may represent scarring but acute or subacute infiltrate not excluded. No gross pleural effusion seen. No gross interval change in appe arance in comparison with prior films of September 13. IMPRESSION: No interval change from September 13, question again raised of right basilar intrapulmonary radiodensi ties. Additional evaluation with chest CT may be considered if clinically appropriate to evaluate po ssibility of chronic infiltrate.
== END 2019-10-30 01:41 ==
PROVIDERS: PCP Family Medicine; Visit Provider Family Medicine
DX: J18.9 Pneumonia, unspecified organism (principal)
CPT/HCPCS: 71046

== ENCOUNTER 2019-10-30 10:40 | Outpatient (REF) | payer MEDICARE, SELFPAY ==
[2019-10-30 19:30] LABS: BUN 19 mg/dL (7-18); Calcium 8.4 mg/dL (8.5-10.1); Chloride 104 mmol/L (98-107); Glucose 230 mg/dL (74-106); Sodium 141 mmol/L (136-145)
== END 2019-10-30 11:00 ==
LOC: NCHCN 10:40
PROVIDERS: PCP Family Medicine; Visit Provider Family Medicine
DX: I10 Essential (primary) hypertension (principal)
CPT/HCPCS: 80048

== ENCOUNTER → 2019-11-06 11:00 | Outpatient (BNVA) | payer MEDICARE, SELFPAY | PROVIDERS: PCP Family Medicine; Referring Provider Family Medicine; Visit Provider Nurse Practitioner Gerontology | DX: N48.0 Leukoplakia of penis (principal); N47.2 Paraphimosis | CPT/HCPCS: 99213 ==

== ENCOUNTER 2020-02-12 16:47 | Outpatient (REF) | payer MEDICARE, SELFPAY ==
[2020-02-12 16:10] LABS: HCT 35.5 % (40.0-50.0); HGB 10.8 g/dL (13.5-17.5); Mean Corp. HGB Concentration 30.4 g/dL (32.0-36.0); Mean Corpuscular Hemoglobin 26.5 pg (27.0-33.0); Mean Corpuscular Volume 87.2 fL (80-95); Mean Platelet Volume 9.8 fL (8.0-11.0); Platelet Count 260 x1000/uL (130-400); RBC 4.07 m/cumm (4.50-6.00); White Blood Cell Count 5.97 k/cumm (4.4-10.8)
[2020-02-12 16:26] LABS: ALT 40 U/L (16-63); AST 41 U/L (15-37); Albumin 3.3 g/dL (3.4-5.0); Alkaline Phosphatase 162 U/L (46-116); Anion Gap 12.4 mmol/L (3-11); BUN 27 mg/dL (7-18); Bilirubin, Total 0.4 mg/dL (0.2-1.0); CO2 24.6 mmol/L (21.0-32.0); CREATININE 1.38 mg/dL (0.70-1.30); Calcium 8.4 mg/dL (8.5-10.1); Chloride 104 mmol/L (98-107); Glucose 285 mg/dL (74-106); Potassium 4.3 mmol/L (3.5-5.1); Sodium 141 mmol/L (136-145); Total Protein 6.8 g/dL (6.4-8.2)
[2020-02-12 16:34] LABS: Hemoglobin A1C 7.8 % (3.8-5.6)
== END 2020-02-12 17:07 ==
LOC: NCHCN 16:47
PROVIDERS: PCP Family Medicine; Visit Provider Family Medicine
DX: E11.65 Type 2 diabetes mellitus with hyperglycemia (principal); I10 Essential (primary) hypertension
CPT/HCPCS: 80053; 85027; 83036

== ENCOUNTER 2020-02-19 11:32 | Outpatient (REF) | payer MEDICARE, SELFPAY ==
[2020-02-19 16:56] LABS: Ferritin 44 ng/mL (26-388); Folate 9.2 ng/mL (8.6-20.0)
[2020-02-19 16:57] LABS: Vitamin B12 > 2000 pg/mL (193-986)
[2020-02-19 17:31] LABS: Iron 7 ug/dL (65-175); Total Iron Binding Capacity 63 ug/dL (250-450); Transferrin Sat 11 % (20-55)
== END 2020-02-19 11:52 ==
LOC: NCHCN 11:32
PROVIDERS: PCP Family Medicine; Visit Provider Family Medicine
DX: D51.8 Other vitamin B12 deficiency anemias (principal)
CPT/HCPCS: 82607; 82728; 82746; 83540; 83550

== ENCOUNTER 2020-02-19 17:27 | Outpatient (REF) | payer MEDICARE, SELFPAY ==
[2020-02-22 07:26] LABS: COVID-19 RT-PCR Result NEGATIVE (Negative)
== END 2020-02-19 17:47 ==
LOC: NCHCN 17:27
PROVIDERS: PCP Family Medicine; Visit Provider Nurse Practitioner Family
DX: J06.9 Acute upper respiratory infection, unspecified (principal)
CPT/HCPCS: U0003

== ENCOUNTER 2020-04-19 10:48 | Outpatient (REF) | payer MEDICARE, SELFPAY ==
[2020-04-19 20:44] LABS: HCT 40.5 % (40.0-50.0); HGB 12.1 g/dL (13.5-17.5); MCH 26.6 pg (27.0-33.0); MCHC 29.9 % (32.0-36.0); Platelet Count 236 10^3/uL (130-400); RBC 4.55 10^6/uL (4.36-5.78); RDW 16.7 % (11.8-14.1); RDW-SD 54.3 fL; WBC 8.95 10^3/uL (4.4-10.8)
[2020-04-19 20:58] LABS: Hemoglobin A1C 7.4 % (3.8-5.6)
[2020-04-19 21:25] LABS: Anion Gap 9.2 mmol/L (3-11); BUN 23 mg/dL (7-18); CO2 25.8 mmol/L (21.0-32.0); CREATININE 1.36 mg/dL (0.70-1.30); Calcium 8.5 mg/dL (8.5-10.1); Chloride 107 mmol/L (98-107); Estimated GFR 50.55 (mL/min/1.73m2); Ferritin 50 ng/mL (26-388); Glucose 200 mg/dL (74-106); Potassium 4.9 mmol/L (3.5-5.1); Sodium 142 mmol/L (136-145)
== END 2020-04-19 11:08 ==
LOC: NCHCN 10:48
PROVIDERS: PCP Family Medicine; Visit Provider Family Medicine
DX: D51.8 Other vitamin B12 deficiency anemias (principal); E11.9 Type 2 diabetes mellitus without complications; I10 Essential (primary) hypertension
CPT/HCPCS: 80048; 85027; 82728; 83036

== ENCOUNTER 2020-10-25 18:27 | Outpatient (REF) | payer MEDICARE, SELFPAY ==
[2020-10-25 17:08] LABS: MCH 27.8 pg (27.0-33.0); MCV 89.9 fL (80-95); MPV 11.7 fL (8.0-11.0); Platelet Count 181 10^3/uL (130-400); RBC 4.67 10^6/uL (4.36-5.78); RDW-SD 45.8 fL; WBC 9.75 10^3/uL (4.4-10.8)
[2020-10-25 17:15] LABS: Iron 57 ug/dL (65-175); Total Iron Binding Capacity 342 ug/dL (250-450); Transferrin Sat 17 % (20-55)
[2020-10-25 17:21] LABS: ALT 49 U/L (16-63); AST 33 U/L (15-37); Albumin 3.3 g/dL (3.4-5.0); Alkaline Phosphatase 175 U/L (46-116); Anion Gap 9.8 mmol/L (3-11); BUN 16 mg/dL (7-18); Bilirubin, Total 0.5 mg/dL (0.2-1.0); CO2 27.2 mmol/L (21.0-32.0); CREATININE 1.2 mg/dL (0.70-1.30); Calcium 9.1 mg/dL (8.5-10.1); Chloride 103 mmol/L (98-107); Estimated GFR 58.26 (mL/min/1.73m2); Ferritin 91 ng/mL (26-388); Glucose 162 mg/dL (74-106); Magnesium 1.7 mg/dL (1.8-2.4); Potassium 4.8 mmol/L (3.5-5.1); Sodium 140 mmol/L (136-145); Total Protein 6.7 g/dL (6.4-8.2)
[2020-10-25 17:32] LABS: Hemoglobin A1C 7.8 % (<5.7)
[2020-10-25 18:13] LABS: Uric Acid 5.3 mg/dL (3.5-7.2)
== END 2020-10-25 18:28 | disposition home or self-care (01) ==
LOC: NCHCN 18:27
PROVIDERS: PCP Family Medicine; Visit Provider Family Medicine
DX: D50.9 Iron deficiency anemia, unspecified (principal); E11.9 Type 2 diabetes mellitus without complications; I10 Essential (primary) hypertension; M16.0 Bilateral primary osteoarthritis of hip; M17.0 Bilateral primary osteoarthritis of knee; M10.9 Gout, unspecified
CPT/HCPCS: 80053; 85027; 82728; 83036; 83540; 83550; 83735; 84550

== ENCOUNTER 2021-01-23 11:49 | Outpatient (REF) | payer MEDICARE, SELFPAY ==
[2021-01-23 16:31] LABS: COMMENT (LAB VIEW ONLY) 196.49 mg/dL
== END 2021-01-23 11:50 | disposition home or self-care (01) ==
LOC: NCHCN 11:49
PROVIDERS: PCP Family Medicine; Visit Provider Family Medicine
DX: E11.9 Type 2 diabetes mellitus without complications (principal)
CPT/HCPCS: 82043; 82570

== ENCOUNTER 2021-01-29 02:13 | Outpatient (CLI) | payer MEDICARE, SELFPAY ==
--- NOTE | 2021-01-29 09:29 | DI.RAD_ITS ---
Exam(s) RF BARIUM SWALLOW EXAM: RF BARIUM SWALLOW CLINICAL HISTORY: DYSPHAGIA,FEELS LIKE FOOD STUCK IN THROAT,COUGH,R13.10 TECHNIQUE: 2D and realtime digital imaging was performed. CONTRAST MATERIAL: Oral barium Oral water soluble contrast was administered. COMPARISON: FINDINGS: This air-contrast esophagram was performed standing. We often performed this study both standing and recumbent but this patient was not able to lie in his stomach. ESOPHAGRAM: There was no aspiration on this study. No obvious hypertense upper esophageal sphincter and no evide nce of Zenker's diverticulum. There were no obvious fixed lesions in the esophagus. Distally the GE junction appeared unremarkable with no evidence of hiatal hernia nor Schatzki ring nor fixed lesion/ stricture at this level. No evidence of achalasia IMPRESSION: Unremarkable standing esophagram. Given this patient's history I feel that a swallowing mechanism modified barium swallow should be per formed. RADIATION DOSE DELIVERED: Ka,r= mGy
[2021-01-29] MEDS: Barium Sulfate 60% W/V 355 ML BTL 200 ML PO (10:28)
== END 2021-01-29 02:33 ==
PROVIDERS: PCP Family Medicine; Visit Provider Family Medicine
DX: R13.10 Dysphagia, unspecified (principal); R05 Cough; R09.89 Other specified symptoms and signs involving the circulatory and respiratory systems
CPT/HCPCS: 74221; J3490

== ENCOUNTER 2021-03-10 14:14 | Emergency (ER) | payer MEDICARE, SELFPAY ==
[2021-03-10 14:29] VITALS: BP 103/68; PULSE 60; RESP 18; TEMP 36.3; O2SAT 96
--- NOTE | 2021-03-10 14:30 | RT.EKG_ITS ---
APPROVED REPORT Exam: Resting ECG Reason for Exam: Slurred speech, hx CVA Patient Location: E HR:54 bpm ECG Measurements Heart Rate 54 AXIS NJ 206 P 50 QRSd 79 QRS 12 QT 432 T 83 QTc 410 Conclusion Bradycardia with irregular rate...V-rate 48- 63, mean < 60. Sinus with rate variation. No STEMI. I have reviewed and interpreted ECG and agree with software generated interpretation.
--- NOTE | 2021-03-10 14:30 | DI.CT_ITS ---
Exam(s) CT HEAD - STROKE PROTOCOL EXAM: CT HEAD - STROKE PROTOCOL CLINICAL HISTORY: AMS, HX CVA, Slurred speech. TECHNIQUE: Imaging Protocol: Axial computed tomography images with coronal and sagittal reformatted images were created and reviewed COMPARISON: CT CTA BRAIN AND NECK from 05/11/2017 FINDINGS: Ventricles and Extra axial spaces: Normal in size and morphology for the patient's age. Hemorrhage: None. Cerebral parenchyma: There are areas of decreased attenuation in the white matter most consistent wit h small vessel ischemic disease. No acute territorial infarct. There is an old left basal gangliar lacunar infarct. Midline shift: None. Brainstem/Cerebellum: Normal. Calvarium: Normal. Visualized Paranasal sinuses/Mastoids: Clear except for fluid in the right maxillary and left sphenoi d sinuses. Soft Tissues: Unremarkable. IMPRESSION: No acute intracranial process. RADIATION DOSE DELIVERED: 821.86mGy.cm Total DLP DATA REPOSITORY: All CT scans at this facility are submitted to the National Radiology Data Registry (NRDR) Dose Index Registry (DIR) with the [employer] ([employer]). RADIATION OPTIMIZATION: All CT scans at this facility use at least one of these dose optimization te chniques: automated exposure control; mA and/or kV adjustment per patient size (includes targeted exa ms where dose is matched to clinical indication); or iterative reconstruction.
[2021-03-10 14:35] VITALS: RESP 16
--- NOTE | 2021-03-10 14:45 | DI.CT_ITS ---
Exam(s) CT CHEST WO EXAM: CT CHEST WO CLINICAL HISTORY: R/O pneumonia, SOB, Cough,. TECHNIQUE: Imaging protocol: Axial computed tomography images were obtained and coronal and sagittal reformatted images were created and reviewed. COMPARISON: CT CHEST WITHOUT CONTRAST from 01/29/2016 CT CHEST HIGH RESOLUTION from 01/29/2016 CT CHEST WITHOUT CONTRAST from 01/29/2016 FINDINGS: Tracheobronchial tree: Patent where visualized. Pulmonary parenchyma: No consolidation or dominant measurable mass. No architectural distortion. Mild emphysematous changes seen in the upper lobes bilaterally. There is a stable left upper lobe pulmon chavez nodule and a stable left lower lobe pulmonary nodule. These were present on the CT scan of the c hest from 01/29/2016. There is atelectasis or scarring in the lower lobes. Mediastinum and [place]: No dominant adenopathy or fluid collection. Pleura: No effusion or pneumothorax. Pleural calcifications are present bilaterally likely reflecting prior asbestos exposure. Heart: The heart is not dilated. [id number] coronary artery calcification. No pericardial effu ernestina. Aorta: Thoracic aorta non-dilated. Atherosclerosis. Upper abdomen: The liver has a lobulated contour which may reflect hepatic cirrhosis. Lymph nodes: Within normal limits. Soft tissues: Mild bilateral gynecomastia. Bones:Degenerative changes in the spine. Old healed left rib fractures. IMPRESSION: 1. No evidence of pneumonia. 2. Stable pulmonary nodules. RADIATION DOSE DELIVERED: 753.13mGy.cm Total DLP 753.13mGy.cm Total DLP DATA REPOSITORY: All CT scans at this facility are submitted to the National Radiology Data Registry (NRDR) Dose Index Registry (DIR) with the [employer] ([employer]). RADIATION OPTIMIZATION: All CT scans at this facility use at least one of these dose optimization te chniques: automated exposure control; mA and/or kV adjustment per patient size (includes targeted exa ms where dose is matched to clinical indication); or iterative reconstruction.
[2021-03-10 14:50] LABS: Abs Immature Grans 0.08 10^3/uL (0.0-0.06); Absolute Basophil Count 0.08 10^3/uL (0.0-0.2); Absolute Eosinophil Count 0.18 10^3/uL (0.0-0.7); Absolute Lymphocyte Count 1.57 10^3/uL (1.2-3.4); Absolute Monocyte Count 0.82 10^3/uL (0.1-0.8); Absolute Neutrophil Count 8.26 10^3/uL (1.2-6.7); Basophils % 0.7; Eosinophils % 1.6; HCT 42.6 % (40.0-50.0); HGB 13.2 g/dL (13.5-17.5); Immature Grans % 0.7; Lymphocytes % 14.3; MCH 28.3 pg (27.0-33.0); MCV 91.4 fL (80-95); MPV 9.5 fL (8.0-11.0); Monocytes % 7.5; Neutrophils % 75.2; Nucleated RBC 0 %; Platelet Count 312 10^3/uL (130-400); RBC 4.66 10^6/uL (4.36-5.78); RDW 14.6 % (11.8-14.1); RDW-SD 48.4 fL; WBC 10.99 10^3/uL (4.4-10.8)
--- NOTE | 2021-03-10 14:58 | ED.GENADUL_ITS ---
Discharge Plan Disposition Patient Disposition: AGAINST MEDICAL ADVICE Condition: Fair Discharge Details Clinical Impression: Weakness Primary Care Provider: Soledad Slaughter ED Provider: Kayla Chino Home Meds and New Rx's Prescriptions: No Action citalopram 20 MG tablet 10 mg PO DAILY RF: 0 Diabetic Shoe w Lift Qty: 1 RF: 0 Diabetic Shoe w Lift RF: 0 atorvastatin [Lipitor] 40 MG tablet 40 mg PO DAILY Qty: 0 RF: 0 furosemide 20 MG tablet 20 mg PO BID RF: 0 aspirin 81 MG tablet,delayed release (DR/EC) 81 mg PO DAILY Qty: 100 RF: 0 metolazone 2.5 mg Tablet 2.5 mg PO .TWICE WEEKLY RF: 0 metformin 500 mg Tablet 1,000 mg PO BID RF: 0 clonidine HCl 0.3 mg Tablet 0.3 mg PO TID RF: 0 cyanocobalamin (vitamin B-12) [Vitamin B-12] 1,000 mcg Tablet 1,000 mcg PO BID RF: 0 clopidogrel 75 mg Tablet 75 mg PO DAILY RF: 0 allopurinol 100 mg Tablet 100 mg PO DAILY RF: 0 acetaminophen [Tylenol Arthritis Pain] 650 mg Tablet Extended Release 650 mg PO Q4H PRN PRNRF: 0 fluticasone propion-salmeterol [Advair Diskus] 500-50 mcg/dose Blister With Device 1 inh INHALATION BID RF: 0 naproxen 500 mg Tablet 500 mg PO BID PRNRF: 0 Spiriva with HandiHaler 18 mcg Capsule, W/Inhalation Device 1 cap INHALATION DAILY RF: 0 albuterol sulfate [Proventil HFA] 90 mcg/actuation HFA aerosol inhaler 2 puff IH Q6H PRN (Reason: shortness of breath or wheezing) Qty: 8.5 RF: 0 pantoprazole 40 mg tablet,delayed release (DR/EC) 40 mg PO DAILY AM RF: 0 amlodipine 5 mg tablet 5 mg PO HS RF: 0 lisinopril 40 mg tablet 40 mg PO DAILY RF: 0 Discharge Instructions Instructions: Transient Ischemic Attack (ED), Weakness (ED) Additional Instructions: At this time recommendation was made for admission the hospital for further evaluation dictation. You have opted to be discharged home with close observation. Please return to the ED or call 911 for any recurrent episodes of slurred speech, weakness, chest pain, shortness of breath, dizziness, worsening fever or pain. Follow up with primary care provider in 3-5 days. Return to ED sooner if any worsening or concerns. Increase oral fluids. Continue taking your previously prescribed medication as directed. Blood cultures were obtained while here in the department, they are currently pending, if they come back abnormal we will call you. Referrals: Soledad Slaughter MD [Primary Care Provider] - 5 days Tere Benoit MD [ [facility] STAFF PHYSICIAN] - 2 weeks Discharge Data Discharge Date/Time-TO BE ENTERED AT DEPARTURE: 03/10/21 18:55 Medical Decision Making 80-year-old male presents to ER chief complaint of generalized weakness 12 hours reported some slurred speech that she noticed yesterday morning. Increased generalized weakness and fatigue. states that patient kept falling asleep today. Patient reports some difficulty walking with cane today. He does report some cough with yellow productive sputum, he is alert and oriented x3 upon arrival no focal neuro deficits noted no facial droop. No pronator drift. He denies any headache at this time. He does have a past medical history of COPD, diabetes, hyper tension, hyperlipidemia, TIA, venous stasis ulcers, surgical history includes right hip arthroplasty, cholecystic appendectomy and rectal sphincterotomy. At this time cardiac work-up ordered including serial troponin, EKG, CT head stroke protocol and CT chest without contrast to rule out pneumonia. At this time no focal neuro deficits are appreciated patient reports generalized weakness and fatigue and slurred speech. Differential diagnosis includes but not limited to CVA, TIA, pneumonia, UTI, sepsis, Labs show white blood cell count 10.9, neutrophils 8.6, PT 9.3, INR 0.9 sodium 138 potassium 5.1 BUN 25 creatinine 7 GFR 38.97 glucose 285 alk phos [address] head without contrast 04/04/[address] head without contrast 06/17/2016 FINDINGS: Limitations: None. Brain: No mass, intracranial hemorrhage or brain edema. No transcortical defect. Normal cerebellum and brainstem. Moderate diffuse brain voume loss. Proportionate expansion of the CSF containing spaces. Unchanged sharply demarcated CSF density defect in the left subinsular brain 7 x 5 mm. No new defects. Chronic periventricular and narayan radiata white matter hypoattenuation is mildly increased though still in the same pattern and to the same geographic extent. Cerebral ventricles: Unremarkable and proportional to the degree of diffuse brain volume loss. Paranasal sinuses: Prominent new right maxillary and left sphenoid sinus fluid. Mastoid air cells: Normal. Vasculature: Bilateral carotid atherosclerosis. Bones/joints: Normal. Soft tissues: Unremarkable. IMPRESSION: 1. No acute intracranial abnormality. Incidentally noted new right maxillary and left sphenoid sinusitis. 2. 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 3. The finding in the left subinsular brain has the appearance of a focally enlarged perivascular space. COMPARISON: CT CHEST FOR PULMONARY EMBOLUS 01/29/2016 12:21 PM FINDINGS: Lungs: Bilateral upper lobe emphysematous changes. Left upper lobe 4 mm round nodule. Atelectasis present in the right middle lobe. Mild atelectasis left lower lobe. Left lower lobe subpleural 6 mm nodule. No airspace disease. Pleural spaces: Unremarkable. No pneumothorax. No pleural effusion. Heart: Calcified coronary artery disease. Aorta: Unremarkable. No aortic aneurysm. Lymph nodes: Unremarkable. No enlarged lymph nodes. Bones/joints: Unremarkable. No acute fracture. Soft tissues: Unremarkable. IMPRESSION: 1. No evidence of pneumonia. Mild atelectasis bilaterally. 2. Mild upper lobe emphysematous changes. 3. Lung nodules.For patients at low risk (minimal or absent history of smoking and of other known risk factors), no routine follow-up is indicated. For patients at high risk (history of smoking or of other known risk factors), consider optional CT Chest at 12 months. (Reference: Rosie) REFERENCES: Mitchellhoarabella H, et al. Guidelines for Management of Incidental Pulmonary Nodules Detected on CT Images: From the Fleischner Society 2017. Radiology. 2017;284(1):228-243. Thank you for allowing us to participate in the care of your patient. Dictated and Authenticated by: Eulalio Washington MD 1558: Call out to hospitalist Dr. Thompson regarding patient possible admission for observation for TIA symptoms. 1538: Also images pushed to [facility] for neurology consult. 1611: Spoke with Dr. Thompson she recommends ABG, and to call her back after neurology consult. We do not have neurology in house this week. 1624: ABG shows pH 7.359 PCO2 is 46.4 slightly elevated PO2 81.5, lactate 2.1, CO2 23 8 bicarb 20, awaiting neurology callback and lactate added on and blood cultures added onto the patient's labs. 1721: Spoke with Dr. León with neurology as [facility] regarding patient case and details he does not recommend transfer at this time but does recommend a further work-up with possibly CTA of brain and neck to rule out small vessel disease and MRI, also consider possibly EEG at a later time or as an outpatient. At this time differential is broad, I will speak with hospitalist regarding admission for further work-up, MRI and observation. 181: Spoke with Dr. Hargrove regarding patient case, he is here at for evaluation. 1835: After bedside evaluation with hospitalist Dr. Hargrove patient has reportedly changed their mind about being admitted and request to be discharged home. I did discuss at length with patient and risks and benefits. I did discuss expedited MRI and further imaging of the brain to rule out CVA they verbalized understanding. They also verbalized understanding will return or call 911 for any significant change in patient's condition. I will place patient on the care management follow-up list to have a PCP appointment within 3 to [address] Slaughter who is patient's primary care provider. I will also give a referral for neurology follow-up Dr. Benoit. Patient remained alert and oriented x3 with no focal neuro deficits. Dr. Hargrove agrees to write a consultation note in the patient's chart. Patient requesting to leave AMA. The patient appears clinically sober and is not under the influence of any known substances. Discussed risks and benefits with patient. Patient verbalizes understanding of situation and the risks of leaving including worsening condition, developing disability, including but not limited to . Discussed results of labs and imaging, if they were performed and recommendations for further treatment and/or observation. The patient verbalizes understanding of the results discussed. Family () was involved in decision making and situation discussed. At this time patient has opted to leave against medical advice. Patient is alert and oriented and has the capacity to make own decisions. HPI General Mode of arrival: wheelchair . Date/Time Provider Initiated Documentation: 03/10/21 14:32 . Limitations to Documentation: no limitations . Information obtained by: patient, family, RN notes reviewed and old records reviewed . HPI Narrative: 80-year-old male presents to ER chief complaint of generalized weakness 12 hours reported some slurred speech that she noticed yesterday morning. Increased generalized weakness and fatigue. states that patient kept falling asleep today. Patient reports some difficulty walking with cane today. He does report some cough with yellow productive sputum, he is alert and oriented x3 upon arrival no focal neuro deficits noted no facial droop. No pronator drift. He denies any headache at this time. He does have a past medical history of COPD, diabetes, hyper tension, hyperlipidemia, TIA, venous stasis ulcers, surgical history includes right hip arthroplasty, cholecystic appendectomy and rectal sphincterotomy. Related Data Home Medications Medication Instructions Recorded Confirmed citalopram 10 mg PO DAILY tab-cap NS 12/02/12 03/10/21 atorvastatin [Lipitor] 40 mg PO DAILY #0 03/28/15 03/10/21 furosemide 20 mg PO BID tab 03/11/16 03/10/21 aspirin 81 mg PO DAILY #100 tablet. 04/05/17 03/10/21 Spiriva with HandiHaler 1 cap INHALATION DAILY 03/13/19 03/10/21 acetaminophen [Tylenol Arthritis 650 mg PO Q4H PRN PRN 03/13/19 03/10/21 Pain] allopurinol 100 mg PO DAILY 03/13/19 03/10/21 clonidine HCl 0.3 mg PO TID 03/13/19 03/10/21 clopidogrel 75 mg PO DAILY 03/13/19 03/10/21 cyanocobalamin (vitamin B-12) 1,000 mcg PO BID 03/13/19 03/10/21 [Vitamin B-12] fluticasone propion-salmeterol 1 inh INHALATION BID 03/13/19 03/10/21 [Advair Diskus] metformin 1,000 mg PO BID 03/13/19 03/10/21 metolazone 2.5 mg PO .TWICE WEEKLY 03/13/19 03/10/21 naproxen 500 mg PO BID PRN 03/13/19 03/10/21 albuterol sulfate [Proventil HFA] 2 puff IH Q6H PRN #8.5 gm 09/13/19 03/10/21 amlodipine 5 mg PO HS 03/10/21 03/10/21 lisinopril 40 mg PO DAILY 03/10/21 03/10/21 pantoprazole 40 mg PO DAILY AM 03/10/21 03/10/21 Previous Rx's Medication Instructions Recorded atorvastatin [Lipitor] 40 mg PO DAILY #0 03/28/15 furosemide 20 mg PO BID tab 03/11/16 aspirin 81 mg PO DAILY #100 tablet. 04/05/17 albuterol sulfate [Proventil HFA] 2 puff IH Q6H PRN #8.5 gm 09/13/19 Allergies Allergy/AdvReac Type Severity Reaction Status Date / Time cephalexin AdvReac Intermediate genitourinary Verified 03/10/21 14:46 edema General Stated Complaint: CVA/TIA MAURILIO: 2 Review of Systems All systems reviewed & are unremarkable except as noted in HPI and below Constitutional Constitutional: Reports daytime sleepiness, Reports fatigue, Denies fever(s), Denies frequent falls, Reports headache(s), Reports poor appetite and Reports weakness ENT Ears, Nose, Mouth, and Throat: Reports headache(s) and Reports disequilibrium Musculoskeletal Musculoskeletal: Reports abnormal gait Neurologic Neurologic: Reports as per HPI, Reports abnormal speech, Reports abnormal gait, Denies confusion, Denies frequent falls, Reports headache(s), Denies memory loss, Denies convulsions, Reports disequilibrium, Reports weakness and Reports o ther (Generalized increased fatigue) Psychiatric Psychiatric: Denies confusion and Denies memory loss Endocrine Endocrine: Reports fatigue PFSH Medical History (Updated 03/10/21 @ 18:40 by Chris Harrgove MD) Cellulitis Cirrhosis COPD (chronic obstructive pulmonary disease) Diabetes Diabetic ulcer of right lower leg associated with diabetes mellitus due to underlying condition, with fat layer exposed HLD (hyperlipidemia) HTN (hypertension) Hx TIA/stroke w/o resid SAMMI on CPAP Renal insufficiency Venous stasis Venous stasis ulcer right lateral calf Venous stasis ulcer of ankle limited to breakdown of skin Surgical History H/O rectal sphincterotomy History of appendectomy History of cholecystectomy History of surgery Debridement of right leg wound with Apligraf History of total right hip arthroplasty Family History Other Neoplasm Stroke Social History Smoking/Tobacco Use Status: Former Tobacco Use Quit Date: 03/06/84 Smoking risk assessment performed?: Yes Alcohol Intake: never Drug use: Never Substance use type: does not use Do you feel safe at home: Yes Do you feel safe in your relationship?: Yes Exam Narrative Exam Narrative: Constitutional: Alert and oriented x3. Appears stated age. Obese body habitus. Head: Normocephalic, no trauma. Eyes: Pupils PERRLA, 2 mm bilaterally, Red reflex noted, EOM's intact. Eyelids symmetrical without lesions, discharge, or swelling. ENT: Bilateral TM's WNL, External ear normal to inspection, no mastoid TTP, swelling, or erythema, Nasal turbinates WNL, no nasal discharge. Normal dentition, Posterior pharynx WNL, no exudate. Chest: RRR, Normal S1, S2, distal pulses intact. Resp: Lungs scattered expiratory wheezes bilaterally Abdomen: Soft, obese girth, nontender to palpation Musculoskeletal: Unable to assess gait 5/5 strength to all four extremities. Skin: Appearance of peripheral vascular disease noted to bilateral lower extremities chronic appearing. Capillary refill less than 2 sec. Neurologic: Cranial nerves II-XII intact. Alert and oriented x 3. No facial droop, fly raiser lockstitch are equal bilaterally no pronator drift, no leg drop bilaterally. Intact dorsal flexion pedal flexion. Hematologic/Lymphatic: No ecchymosis, no lymphadenopathy. Course Vital Signs Vital signs: Vital Signs Temperature 36.3 C L 03/10/21 14:29 Pulse 60 03/10/21 14:29 Respiratory Rate 18 03/10/21 14:29 Blood Pressure 103/68 03/10/21 14:29 Pulse Oximetry 96 03/10/21 14:29 Temperature 36.3 C L 03/10/21 14:29 Temperature Source Temporal Artery Scan 03/10/21 14:29 Pulse 60 03/10/21 14:29 Respiratory Rate 18 03/10/21 14:29 Blood Pressure 103/68 03/10/21 14:29 Blood Pressure Position Sitting 03/10/21 14:29 Pulse Oximetry 96 03/10/21 14:29 Oxygen Delivery Method Room Air 03/10/21 14:29 Oxygen Flow Rate 0 03/10/21 14:29 Pain Level 0 03/10/21 14:29 Lab/Test Results Lab/Test Results: Laboratory Tests Range/Units 03/10/21 14:35 WBC (4.4-10.8) 10^3/uL 10.99 H RBC (4.36-5.78) 10^6/uL 4.66 Hgb (13.5-17.5) g/dL 13.2 L Hct (40.0-50.0) % 42.6 MCV (80-95) fL 91.4 MCH (27.0-33.0) pg 28.3 MCHC (32.0-36.0) % 31.0 L RDW (11.8-14.1) % 14.6 H Plt Count (130-400) 10^3/uL 312 MPV (8.0-11.0) fL 9.5 Immature Gran % 0.7 Neutrophils % 75.2 Lymphocytes % 14.3 Monocytes % 7.5 Eosinophils % 1.6 Basophils % 0.7 Nucleated RBC % % 0 Absolute Neutrophils (1.2-6.7) 10^3/uL 8.26 H Absolute Lymphocytes (1.2-3.4) 10^3/uL 1.57 Absolute Monocytes (0.1-0.8) 10^3/uL 0.82 H Absolute Eosinophils (0.0-0.7) 10^3/uL 0.18 Absolute Basophils (0.0-0.2) 10^3/uL 0.08
[2021-03-10 15:04] LABS: INR 0.9 (0.9-1.1); Prothrombin Time 9.3 sec (9.3-11.0)
[2021-03-10 15:06] LABS: ALT 32 U/L (16-63); AST 27 U/L (15-37); Albumin 2.8 g/dL (3.4-5.0); Alkaline Phosphatase 154 U/L (46-116); Anion Gap 5.9 mmol/L (3-11); BUN 25 mg/dL (7-18); Bilirubin, Total 0.4 mg/dL (0.2-1.0); CO2 28.1 mmol/L (21.0-32.0); CREATININE 1.7 mg/dL (0.70-1.30); Calcium 8.9 mg/dL (8.5-10.1); Chloride 104 mmol/L (98-107); Estimated GFR 38.97 (mL/min/1.73m2); Glucose 285 mg/dL (74-106); Potassium 5.1 mmol/L (3.5-5.1); Sodium 138 mmol/L (136-145); Troponin I < 0.05 ng/mL (<0.06)
--- NOTE | 2021-03-10 15:22 | DI.VRAD_ITS ---
PROCEDURE INFORMATION: Exam: CT Head Without Contrast Exam date and time: 03/10/2021 2:40 PM Age: 80 years old Clinical indication: Speech disturbance; Patient HX: AMS, HX CVA, slurred speech TECHNIQUE: Imaging protocol: Computed tomography of the head without contrast. Other technique: STROKE PROTOCOL was implemented. COMPARISON: 1. MRI - BRAIN WO CONTRAST 04/08/2017 1:[address] head without contrast 04/04/[address] head without contrast 06/17/2016 FINDINGS: Limitations: None. Brain: No mass, intracranial hemorrhage or brain edema. No transcortical defect. Normal cerebellum and brainstem. Moderate diffuse brain voume loss. Proportionate expansion of the CSF containing spaces. Unchanged sharply demarcated CSF density defect in the left subinsular brain 7 x 5 mm. No new defects. Chronic periventricular and narayan radiata white matter hypoattenuation is mildly increased though still in the same pattern and to the same geographic extent. Cerebral ventricles: Unremarkable and proportional to the degree of diffuse brain volume loss. Paranasal sinuses: Prominent new right maxillary and left sphenoid sinus fluid. Mastoid air cells: Normal. Vasculature: Bilateral carotid atherosclerosis. Bones/joints: Normal. Soft tissues: Unremarkable. IMPRESSION: 1. No acute intracranial abnormality. Incidentally noted new right maxillary and left sphenoid sinusitis. 2. 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 3. The finding in the left subinsular brain has the appearance of a focally enlarged perivascular space. ASSESSMENT: ASPECTS ([place] Stroke Program Early CT Score) is 10. Dictated and Authenticated by: Saud Rapp MD. Ordering:FLORENCIA Garza MD
--- NOTE | 2021-03-10 15:31 | DI.VRAD_ITS ---
PROCEDURE INFORMATION: Exam: CT Chest Without Contrast; Diagnostic Exam date and time: 03/10/2021 2:58 PM Age: 80 years old Clinical indication: Cough and shortness of breath; Patient HX: R/O pneumonia, cough, SOB TECHNIQUE: Imaging protocol: Diagnostic computed tomography of the chest without contrast. 3D rendering (Not supervised by radiologist): MIP and/or 3D reconstructed images were created by the technologist. COMPARISON: CT CHEST FOR PULMONARY EMBOLUS 01/29/2016 12:21 PM FINDINGS: Lungs: Bilateral upper lobe emphysematous changes. Left upper lobe 4 mm round nodule. Atelectasis present in the right middle lobe. Mild atelectasis left lower lobe. Left lower lobe subpleural 6 mm nodule. No airspace disease. Pleural spaces: Unremarkable. No pneumothorax. No pleural effusion. Heart: Calcified coronary artery disease. Aorta: Unremarkable. No aortic aneurysm. Lymph nodes: Unremarkable. No enlarged lymph nodes. Bones/joints: Unremarkable. No acute fracture. Soft tissues: Unremarkable. IMPRESSION: 1. No evidence of pneumonia. Mild atelectasis bilaterally. 2. Mild upper lobe emphysematous changes. 3. Lung nodules.For patients at low risk (minimal or absent history of smoking and of other known risk factors), no routine follow-up is indicated. For patients at high risk (history of smoking or of other known risk factors), consider optional CT Chest at 12 months. (Reference: Rosie) REFERENCES: Rosie Spence, et al. Guidelines for Management of Incidental Pulmonary Nodules Detected on CT Images: From the Fleischner Society 2017. Radiology. 2017;284(1):228-243. Dictated and Authenticated by: Eulalio Washington MD. Ordering:FLORENCIA Garza MD
[2021-03-10] MEDS: Normal Saline 1,000 ML 250 ML IV (15:35)
[2021-03-10 16:19] LABS: BE 1 mmol/L (-2-3); HCO3 26 mmol/L (22-26); pCO2 46 mmHg (35-45); pH 7.36 (7.35-7.45); pO2 82 mmHg (80-105); sO2 95 % (95-98); tCO2 24 mmol/L (23-27)
[2021-03-10 16:21] LABS: FIO2 21 %; Site Right Radial
[2021-03-10 16:37] LABS: Bilirubin Negative (Negative); Blood Negative (Negative); Clarity Clear (Clear); Glucose 500 mg/dL (Negative); Ketones Negative (Negative); Leukocyte Esterase Negative (Negative); Nitrite Negative (Negative); Urobilinogen 0.2 EU/dL (Up TO 0.2)
[2021-03-10 16:45] LABS: Bacteria Negative HPF (Negative); C & S Indicated? No; Crystals Negative HPF (Negative); Epithelial Cells Negative HPF (Negative); Mucus Negative (Negative); WBC Negative HPF (0-5)
[2021-03-10 17:01] LABS: Source Nasal/Nares
[2021-03-10 17:48] LABS: Lactate 2.4 mmol/L (0.6-1.4)
[2021-03-10 17:56] LABS: COVID-19 PCR Negative (Negative)
--- NOTE | 2021-03-10 18:30 | MCONE_ITS ---
Date of service: 03/10/21 Time of Service: 18:31 Assessment and Plan Assessment and plan (1) Slurred speech: Status: Acute Assessment and plan: It is possible he may have had a TIA this morning, but at present there are no findings to indicate a stroke. Given known CVD, and that he is already on appropriate preventive therapy (including DUAP, statin, and tx for HTN and DM) I am not sure there is anything that needs to be added urgently. One could certainly obtain MRI/MRA to further delineate status. Patient states he would like to go home. I think this is not unreasonable and would advise continuation of current regimen and prompt f/u with PCP to consider MRI/MRA. Should he develop recurrent or progressive symptoms he should return to ER. History of Present Illness History of Present Illness Chief Complaint: slurred speech Narrative: 80 male with h/o CVA, HTN, DM, on DUAP -- reports approx two hours of slurred speech this morning, no other lateralizing symptoms, MORALES or visual changes. Has also had some cough but this has largely resolved. In ER findings of note for normal neurological exam, negative acute findings on head CT. EKG atrial bigeminy. I was asked to evaluate for possible admission with provisional dx of possible TIA. Patient himself states that he thinks it's more a matter of his mouth feeling dry, but confirms that speech was not normal this morning (and that it is so now). 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 underlying condition, with fat layer exposed HLD (hyperlipidemia) HTN (hypertension) Hx TIA/stroke w/o resid SAMMI on CPAP Renal insufficiency Venous stasis Venous stasis ulcer right lateral calf Venous stasis ulcer of ankle limited to breakdown of skin Surgical History H/O rectal sphincterotomy History of appendectomy History of cholecystectomy History of surgery Debridement of right leg wound with Apligraf History of total right hip arthroplasty Family History Other Neoplasm Stroke Social History Smoking/Tobacco Use Status: Former Tobacco Use Quit Date: 03/06/84 Smoking risk assessment performed?: Yes Alcohol Intake: never Drug use: Never Substance use type: does not use Do you feel safe at home: Yes Do you feel safe in your relationship?: Yes Exam Narrative Exam Narrative: 103/68, 60, 36.3, 16, 96% RA. HEENT atraumatic; neck supple, w/o bruit (difficult exam due to ambient noise); lungs diminished but clear; heart bigeminal pattern; abdomen soft and NT; extremities w/o edema; neuro Ox3, EOMI, PERRL, roberts full, no facial asymmetry, tongue midline, speech clear w/o slurring; motor 5/5 Results Last Vital Signs Temp 36.3 C L 03/10/21 14:29 Pulse 60 03/10/21 14:29 Resp 16 03/10/21 14:35 BP 103/68 03/10/21 14:29 Pulse Ox 96 03/10/21 14:29 Labs Result diagrams: 03/10/21 14:35 03/10/21 14:35 Labs: Laboratory Results - last 24 hr 03/10/21 03/10/21 03/10/21 14:35 14:35 14:35 WBC 10.99 H RBC 4.66 Hgb 13.2 L Hct 42.6 MCV 91.4 MCH 28.3 MCHC 31.0 L RDW 14.6 H Plt Count 312 MPV 9.5 Immature Gran % 0.7 Neutrophils % 75.2 Lymphocytes % 14.3 Monocytes % 7.5 Eosinophils % 1.6 Basophils % 0.7 Nucleated RBC % 0 Absolute Neutrophils 8.26 H Absolute Lymphocytes 1.57 Absolute Monocytes 0.82 H Absolute Eosinophils 0.18 Absolute Basophils 0.08 PT 9.3 INR 0.9 ABG Sample Site ABG pH ABG pCO2 ABG pO2 ABG HCO3 ABG Total CO2 ABG O2 Saturation ABG Base Excess VBG Lactate FiO2 Sodium 138 Potassium 5.1 Chloride 104 Carbon Dioxide 28.1 Anion Gap 5.9 BUN 25 H Creatinine 1.7 H Estimated GFR/1.73 m2 38.97 Glucose 285 H Calcium 8.9 Magnesium 2.0 Total Bilirubin 0.4 AST 27 ALT 32 Alkaline Phosphatase 154 H Troponin I < 0.05 Total Protein 7.0 Albumin 2.8 L Urine Color Urine Clarity Urine pH Ur Specific [place] Urine Protein Urine Ketones Urine Blood Urine Nitrite Urine Bilirubin Urine Urobilinogen Ur Leukocyte Esterase Urine RBC Urine WBC Ur Epithelial Cells Urine Crystals Urine Bacteria Urine Mucus Ur Culture Indicated? Urine Glucose COVID-19 Source SARS-CoV-2 (PCR) 03/10/21 03/10/21 03/10/21 16:15 16:33 16:55 WBC RBC Hgb Hct MCV MCH MCHC RDW Plt Count MPV Immature Gran % Neutrophils % Lymphocytes % Monocytes % Eosinophils % Basophils % Nucleated RBC % Absolute Neutrophils Absolute Lymphocytes Absolute Monocytes Absolute Eosinophils Absolute Basophils PT INR ABG Sample Site Right Radial ABG pH 7.36 ABG pCO2 46 H ABG pO2 82 ABG HCO3 26 ABG Total CO2 24 ABG O2 Saturation 95 ABG Base Excess 1 VBG Lactate FiO2 21 Sodium Potassium Chloride Carbon Dioxide Anion Gap BUN Creatinine Estimated GFR/1.73 m2 Glucose Calcium Magnesium Total Bilirubin AST ALT Alkaline Phosphatase Troponin I Total Protein Albumin Urine Color Yellow Urine Clarity Clear Urine pH 5.0 Ur Specific [place] 1.010 Urine Protein 30 H Urine Ketones Negative Urine Blood Negative Urine Nitrite Negative Urine Bilirubin Negative Urine Urobilinogen 0.2 Ur Leukocyte Esterase Negative Urine RBC Urine WBC Negative Ur Epithelial Cells Negative Urine Crystals Negative Urine Bacteria Negative Urine Mucus Negative Ur Culture Indicated? No Urine Glucose 500 H COVID-19 Source Nasal/Nares SARS-CoV-2 (PCR) Negative 03/10/21 17:27 WBC RBC Hgb Hct MCV MCH MCHC RDW Plt Count MPV Immature Gran % Neutrophils % Lymphocytes % Monocytes % Eosinophils % Basophils % Nucleated RBC % Absolute Neutrophils Absolute Lymphocytes Absolute Monocytes Absolute Eosinophils Absolute Basophils PT INR ABG Sample Site ABG pH ABG pCO2 ABG pO2 ABG HCO3 ABG Total CO2 ABG O2 Saturation ABG Base Excess VBG Lactate 2.4 H* FiO2 Sodium Potassium Chloride Carbon Dioxide Anion Gap BUN Creatinine Estimated GFR/1.73 m2 Glucose Calcium Magnesium Total Bilirubin AST ALT Alkaline Phosphatase Troponin I Total Protein Albumin Urine Color Urine Clarity Urine pH Ur Specific [place] Urine Protein Urine Ketones Urine Blood Urine Nitrite Urine Bilirubin Urine Urobilinogen Ur Leukocyte Esterase Urine RBC Urine WBC Ur Epithelial Cells Urine Crystals Urine Bacteria Urine Mucus Ur Culture Indicated? Urine Glucose COVID-19 Source SARS-CoV-2 (PCR)
--- NOTE | 2021-03-10 18:36 | NUR.NOTE ---
Nursing Note: Pt states wants to go home, evaluated by provider and has capacity to do so. Offered help with dressing, declined. with pt.
--- NOTE | 2021-03-10 23:31 | NUR.NOTE ---
referral faxed to [facility] Dr Slaughter for weakness f/u.Nursing Note:
== END 2021-03-10 18:55 | disposition left against medical advice (07) ==
PROVIDERS: Emergency Provider Registered Nurse Emergency; PCP Family Medicine
DX: R53.1 Weakness (principal); Z53.29 Procedure and treatment not carried out because of patient's decision for other reasons
CPT/HCPCS: 36415; 36416; 71250; 80053; 82805; 82962; 87040; 87635; 93005; 99283; 99284; 36600; 70450; 81003; 81015; 83605; 83735; 84484; 85025; 85610; 93010

== ENCOUNTER 2021-03-17 20:00 | Outpatient (REF) | payer MEDICARE, SELFPAY ==
[2021-03-17 15:54] LABS: Anion Gap 7.3 mmol/L (3-11); BUN 22 mg/dL (7-18); CO2 29.7 mmol/L (21.0-32.0); CREATININE 1.3 mg/dL (0.70-1.30); Chloride 107 mmol/L (98-107); Estimated GFR 53.12 (mL/min/1.73m2); Glucose 135 mg/dL (74-106); Potassium 4.5 mmol/L (3.5-5.1); Sodium 144 mmol/L (136-145)
== END 2021-03-17 20:01 | disposition home or self-care (01) ==
LOC: NCHCN 20:00
PROVIDERS: PCP Family Medicine; Visit Provider Family Medicine
DX: I12.9 Hypertensive chronic kidney disease with stage 1 through stage 4 chronic kidney disease, or unspecified chronic kidney disease (principal); N18.30 Chronic kidney disease, stage 3 unspecified
CPT/HCPCS: 80048

== ENCOUNTER 2021-04-04 03:06 | Outpatient (CLI) | payer MEDICARE, SELFPAY ==
[2021-04-04 11:52] LABS: Source Nasal/Nares
[2021-04-04 14:14] LABS: COVID-19 PCR Negative (Negative)
== END 2021-04-04 03:07 | disposition home or self-care (01) ==
LOC: LBO 03:06
PROVIDERS: PCP Family Medicine; Visit Provider Family Medicine
DX: Z20.822 Contact with and (suspected) exposure to COVID-19 (principal); Z01.818 Encounter for other preprocedural examination
CPT/HCPCS: 87635

== ENCOUNTER 2021-04-07 00:55 | Outpatient (CLI) | payer MEDICARE, SELFPAY ==
--- NOTE | 2021-04-07 14:46 | DI.RAD_ITS ---
Exam(s) RF MODIFIED SPEECH BA SWALLOW TECHNIQUE: Modified barium swallow was performed in conjunction with speech pathology. CONTRAST MATERIAL: Different barium consistencies were administered ranging from thin barium barium paste on a cracker. COMPARISON: CR,RF RF BARIUM SWALLOW from 01/29/2021 esophagram performed January 29, 2021 was reviewed. FINDINGS: Swallowing mechanism appears grossly intact. There was no aspiration on this study. See separate report by speech therapist. IMPRESSION: No evidence of aspiration Total fluoroscopy time 1 minutes 58 seconds; clipped of dose 17.7mGy RADIATION DOSE DELIVERED: dc Ureña= mGy
[2021-04-07] MEDS: Barium Sulfate 81% w/w for Oral Suspension 148 GM BTL 120 GM PO (15:02)
[2021-04-07] MEDS: Barium Sulfate 40% W/V 240 ML BTL 40 ML PO (15:03)
[2021-04-07] MEDS: Barium Sulfate Oral Paste 40% W/V 230 ML TUBE 60 ML PO (15:05)
[2021-04-07] MEDS: Barium Sulfate 40% W/V 1500 CPS 250 ML BTL 40 ML PO (15:10)
--- NOTE | 2021-04-07 16:08 | ST.MBS ---
Date of Service Date of service: 04/07/21 Time of Service: 14:31 Modified Barium Swallow Study Findings: Videofluoroscopic Swallowing Evaluation / Modified Barium Swallow Study (VFSE/MBSS) Speech Language Pathology Report ASSESSMENT Referring Doctor: Soledad Slaughter M.D. HPI: Pt is an 80 year old male with previous medical history significant for COPD, GERD, anemia, sleep apnea, DMII, community acquired pna, obesity, referred for CONTRACT NEGOTIATOR evaluation and VFSE/MBSS given report of dysphagia symptoms. Previous Imaging: RF BARIUM SWALLOW - 01/29/2021 IMPRESSIONS: There was no aspiration on this study. No obvious hypertense upper esophageal sphincter and no evidence of Zenker's diverticulum. There were no obvious fixed lesions in the esophagus. Distally the GE junction appeared unremarkable with no evidence of hiatal hernia nor Schatzki ring nor fixed lesion/stricture at this level. No evidence of achalasia Predisposing dysphagia risk factors: COPD, GERD Clinical signs of possible chronic dysphagia: coughing episodes after po intake Precipitating dysphagia risk factors / triggering event: N/A; had recently been in ER due to slurred speech/weakness with suspected TIA RR: 16/ room air Cranial nerve exam / Oral Motor: CN V: facial sensation intact to light touch labial protrusion symmetrical labial coordination/ROM WFL Jaw excursion/lateralization intact mastication intact lingual/labial sensation intact CN VII: lateral sulcus residue absent anterior spillage absent salivation reduced CN IX/X: palatal elevation -symmetrical Vocal Quality -WFL taste -WFL onset of swallow - reduced pharyngeal residue - present nasopharyngeal regurgitation -absent CN XII: bolus preparation/manipulation/control -WFL AP transit -mild impairment lingual protrusion symmetrical lingual coordination/ROM WFL lingual residue absent Dentition/Oral Structures/Hygiene: Dentition WFL; oral hygiene is poor considering constant xerostomia, despite attempts to manage this per patient Language: verbal expression/fluency, naming, repetition, and auditory comprehension WFL Hearing: WFL Mental Status: AAOx3, recall of current events intact Speech: WFL Laryngeal function exam: Secretions: xerostomia Vocal quality: WFL; does report occasional bouts of hoarseness MPT: 12 seconds - reduced for sex/age PEFR: 160 L/min - reduced; <240 L/min may be predictive of unsafe swallowing or pulmonary complications which are likely to negatively effect swallow function S/Z ratio: DNT Pitch range: WFL Cough: (volitional) perceptually weak SUBJECTIVE: Patient reports he had a barium swallow 01/29/2021 which was unremarkable. Reports occasional globus resulting in coughing episode for 4-5 minutes, xerostomia for past ~2 years which is managed per his report, however still bothersome. EAT-10 = 7 (abnormal) RSI Score = 21 (abnormal) Normative data suggests that a RSI greater than or equal to 13 is clinically significant and may be indicative of significant reflux disease. OBJECTIVE: Videofluoroscopic Swallow Evaluation (VFSE/MBSS) was conducted in the lateral and [id number] projections by Speech-Language Pathologist, in collaboration with Radiologist, to evaluate oropharyngeal swallow function. Anatomic view under fluoroscopy: WFL PO barium contrast trials: Oral barium water soluble contrast was administered as follows: IDDSI Level 0 Varibar thin liquid (40% w/v) IDDSI Level 2 Varibar nectar thick/mildly thick liquid (40% w/v) IDDSI Level 3 Varibar thin honey/liquidised/moderately-thick (40% w/v) IDDSI Level 4 Varibar pudding/pureed/extremely thick (40% w/v) IDDSI Level 7 Regular Solid: 1/2 shun cracker coated in 3 mL Varibar pudding PHYSIOLOGIC FINDINGS Oral Phase 1 Lip Closure: 0-No labial escape 2 Tongue Control: 0- Cohesive bolus between tongue to palatal seal 3 Bolus Preparation/Mastication: 0- Timely and efficient chewing/mashing 4 Bolus Transport/Lingual Motion: 0- Brisk tongue motion 5 Oral residue: 2- Residue collection on oral structures Location: floor of mouth, palate, tongue 6 Initiation of pharyngeal swallow: 1- Bolus head in valleculae Pharyngeal Phase 7 Velar Elevation: 1- Trace column of contrast or air between soft palate+pharyngeal wall 8 Laryngeal Elevation: 1- Partial superior movement of thyroid cartilage with partial approximation of arytenoids to epiglottic petiole 9 Anterior Hyoid Excursion: 1- Partial anterior movement 10 Epiglottic Movement: 1- Partial inversion 11 Laryngeal Vestibule Closure: 1- Incomplete; narrow column of air/contrast in laryngeal vestibule 12 Pharyngeal Stripping Wave: 0- Present; complete 13 Pharyngeal Contraction: 1- Incomplete; pseudodiverticulae 14 PES/UES Openin- Partial distension and partial duration; partial obstruction of flow 15 Tongue Base Retraction: 2- Narrow column of contrast between tongue base and posterior pharyngeal wall 16 Pharyngeal residue: 2- Collection of residue within or on pharyngeal structures Location: Diffuse - Tongue base, Valleculae, Pharyngeal wall, aryepiglottic folds, Pyriform sinuses [place] Pharyngeal Residue Severity Rating Scale (YPRS) (Juan, et al, 2015) Vallecula Residue Severity IV Moderate 25-50% Epiglottic ligament covered Pyriform Sinus Residue Severity II Trace 1-5% Trace coating of the mucosa Esophageal Phase 17 Esophageal Clearance Upright Position: 0-Complete clearance; esophageal coating Hypertrophy noted along posterior cervical esophagus, between C4-C5; does not appear to impede bolus flow NOTE: This study was performed for interpretation only of the oropharyngeal and pharyngoesophageal domains of swallowing. It is not intended to diagnose any other radiologic abnormalities or substitute for a formal esophagram study. (Above) Sequential Thin: Prespill to inferior surface of epiglottis, prior to swallow onset (Above) Cup Sip [place]: Hypertrophy noted along posterior cervical esophagus, between C4-C5; does not appear to impede bolus flow (Above) Cued chin tuck+thin liquid wash does not prevent penetration Overall 8-Point Penetration-Aspiration Scale (PAS) (T[place], et al, 1996) 2 - Material enters the airway, remains above the vocal folds, and is ejected from the airway. Clinical Indicator(s) of Prandial/Postprandial Aspiration: N/A Trialed Compensatory Swallow Strategies & Outcome: Postures Chin Tuck Posture - unsuccessful in reducing amount of penetrated material Maneuvers 3-second Preparatory Set - somewhat successful in reducing amount of penetrated material Cued Throat Clear - somewhat successful in reducing pharyngeal residue (patient then initiates pharyngeal movement > causes material to move into oral cavity, re-swallow is initiated) Secondary saliva swallow x2- most successful in clearing pharyngeal residue Bolus Modifications Delivery/Alternating Consistencies - Wash with thin - successful in clearing pharyngeal residue Reduced Volume - successful in clearing pharyngeal residue Reduced Rate of Intake - successful in reducing amount of penetrated material Increased Viscosity - successful in reducing amount of penetrated material Dysphagia Outcome and Severity Scale (FELIZ) LEVEL 6 - Full PO: normal diet - Within functional limits/modified independence IMPRESSIONS: Mild-moderate oropharyngeal dysphagia, likely [id number]; dysphagia presentation primarily characterized by reduced coordination/timing of swallow paired with mild pharyngeal weakness; may be partially due to suspected TIA, COPD; Unmanaged reflux symptoms/GERD cannot be ruled out as possible etiology for both globus and/or cough symptoms at this time (Reflux Symptom Index = 21; may be indicative of significant reflux disease/unmanaged reflux). Swallow safety is preserved; swallow efficiency is impaired. Across trials, penetration occurs both prior to and during initial swallow onset from current bolus, with moderate pharyngeal stasis remaining in vallecular space, moreso with liquids/less viscous consistencies; approx 75% of pharyngeal residue is cleared with combination of reflexive and cued sequential swallow(s) and/or (cued) throat clear+re-swallow. Note: aspiration is not observed; reflexive cough or throat clear response(s) are not observed during study; patient does endorse sensation of globus which aligns with presence of vallecular stasis, and suggests adequate oral+hypopharyngeal sensation. Patient appears to be at low-moderate risk for potential aspiration PNA/pulmonary compromise, given hx of COPD and GERD and reduced PEFR of 160 L/min; low risk for malnutrition or dehydration. Diet modification is not indicated. Swallow prognosis is good based on motivation to participate in proposed therapy program, caregiver support, and age; prognosis is also pending patient training in risk management as outlined. Patient appears to be a good candidate for behavioral swallow rehabilitation. PLAN: Diet Texture Modification(s): IDDSI Level(s) 7-Regular Solids, 0-Thin Liquids Medication Intake: Whole with 0-Thin Liquids Alter medications only as advised by MD or Pharmacist Risk Management: Behavioral reflux precautions, including upright position during + 90 mins after meals. Alternate solids/liquids as able Multiple swallows per bolus (x2) to encourage clearance of pharyngeal stasis/residue prior to subsequent bite/sip Control risk factors for aspiration pneumonia via (a) thorough oral hygiene & (b) maintaining physical mobility as tolerated Specialist referrals: May consider GI consult to discuss further GERD management, per patient discretion Ancillary tests: N/A Therapy: Recommend subsequent outpatient session with CONTRACT NEGOTIATOR to review results of today's exam and develop treatment plan as appropriate. Goal: TBD pending patient/caregiver interview Follow-up exam: N/A Thank you for allowing me to take part in this patient's care. Please feel free to contact me with any questions/concerns. Jackie French MA CCC-CONTRACT NEGOTIATOR Speech Language Pathologist [phone] Coding CPT Codes MOTION FLUOROSCOPY/SWALLOW - [id number] ([id number])
== END 2021-04-07 01:15 ==
PROVIDERS: PCP Family Medicine; Visit Provider Speech-Language Pathologist
DX: R13.10 Dysphagia, unspecified (principal)
CPT/HCPCS: 92611; 74221

== ENCOUNTER 2021-04-24 11:37 | Outpatient (REF) | payer MEDICARE, SELFPAY ==
[2021-04-24 15:27] LABS: COMMENT (LAB VIEW ONLY) 74.25 mg/dL; Microalb ug/mg Crea 720.8 ug/mg Cr
== END 2021-04-24 11:38 | disposition home or self-care (01) ==
LOC: LBN 11:37
PROVIDERS: PCP Family Medicine; Visit Provider Family Medicine
DX: E11.9 Type 2 diabetes mellitus without complications (principal)
CPT/HCPCS: 82043; 82570

== ENCOUNTER 2021-05-27 10:38 | Outpatient (REF) | payer MEDICARE, SELFPAY ==
[2021-05-27 15:42] LABS: Bilirubin Negative (Negative); Blood Negative (Negative); Clarity Clear (Clear); Glucose >=1000 mg/dL (Negative); Ketones Negative (Negative); Leukocyte Esterase Negative (Negative); Nitrite Negative (Negative); Urobilinogen 0.2 EU/dL (Up TO 0.2)
[2021-05-27 15:55] LABS: Bacteria Negative HPF (Negative); C & S Indicated? No; Crystals Negative HPF (Negative); Epithelial Cells Moderate HPF (Negative); Mucus Trace (Negative); RBC Negative HPF (0-2); WBC 0-2 HPF (0-5)
[2021-05-27 17:15] LABS: Anion Gap 7.4 mmol/L (3-11); BUN 34 mg/dL (7-18); CO2 30.6 mmol/L (21.0-32.0); CREATININE 1.5 mg/dL (0.70-1.30); Calcium 9.2 mg/dL (8.5-10.1); Chloride 102 mmol/L (98-107); Estimated GFR 45.03 (mL/min/1.73m2); Glucose 253 mg/dL (74-106); Sodium 140 mmol/L (136-145)
[2021-05-27 17:33] LABS: COMMENT (LAB VIEW ONLY) 80.68 mg/dL
[2021-05-27 17:34] LABS: Microalb ug/mg Crea 419.6 ug/mg Cr
== END 2021-05-27 10:39 | disposition home or self-care (01) ==
LOC: NCHCN 10:38
PROVIDERS: PCP Family Medicine; Visit Provider Family Medicine
DX: N18.30 Chronic kidney disease, stage 3 unspecified (principal); R80.9 Proteinuria, unspecified
CPT/HCPCS: 80048; 81003; 81015; 82043; 82570

== ENCOUNTER 2021-10-16 12:38 | Outpatient (REF) | payer MEDICARE, SELFPAY ==
[2021-10-16 14:56] LABS: HCT 44.6 % (40.0-50.0); HGB 13.4 g/dL (13.5-17.5); MCH 28.2 pg (27.0-33.0); MCV 93.7 fL (80-95); MPV 10.8 fL (8.0-11.0); Platelet Count 234 10^3/uL (130-400); RBC 4.76 10^6/uL (4.36-5.78); RDW 14.4 % (11.8-14.1); RDW-SD 50.3 fL; WBC 9.74 10^3/uL (4.4-10.8)
[2021-10-16 15:27] LABS: Hemoglobin A1C 7.6 % (<5.7)
[2021-10-16 15:45] LABS: Anion Gap 11.2 mmol/L (3-11); BUN 34 mg/dL (7-18); CO2 24.8 mmol/L (21.0-32.0); CREATININE 1.5 mg/dL (0.70-1.30); Calcium 8.9 mg/dL (8.5-10.1); Chloride 104 mmol/L (98-107); Estimated GFR 44.92 (mL/min/1.73m2); Ferritin 125 ng/mL (26-388); Glucose 215 mg/dL (74-106); Potassium 4.7 mmol/L (3.5-5.1); Sodium 140 mmol/L (136-145)
[2021-10-16 22:42] LABS: PSA, Screening 0.2 ng/mL (0.0-6.5)
== END 2021-10-16 12:39 | disposition home or self-care (01) ==
LOC: NCHCN 12:38
PROVIDERS: PCP Family Medicine; Visit Provider Family Medicine
DX: E11.9 Type 2 diabetes mellitus without complications (principal); N18.30 Chronic kidney disease, stage 3 unspecified; D50.9 Iron deficiency anemia, unspecified; Z12.5 Encounter for screening for malignant neoplasm of prostate
CPT/HCPCS: 80048; 84153; 85027; 82728; 83036

== ENCOUNTER 2021-10-30 00:56 | Outpatient (CLI) | payer MEDICARE, SELFPAY ==
--- NOTE | 2021-10-30 14:00 | DI.US_ITS ---
APPROVED REPORT EXAM: Comprehensive 2D, Doppler, and color-flow Echocardiogram Patient Location: Out-Patient [facility] [employer] Supervisor: Abby Hodge RDCS (AE) Indications: Mitral valve regurgitation, Dyspnea Other Information Study Quality: Fair. Technically limited study due to body habitus. Conclusion Normal left ventricular wall thickness and chamber size. Estimated ejection fraction is 55 to 60%. Wall motion is normal Normal right ventricular size and systolic function Both atria are normal in size The aortic valve is sclerotic and trileaflet without stenosis or regurgitation Normal mitral valve with trace regurgitation Normal tricuspid valve with trace regurgitation Wall motion Left Ventricle The left ventricle is normal size. The left ventricular systolic function is normal. The left ventric ular ejection fraction is within the normal range. There is normal left ventricular wall thickness. T here is normal LV segmental wall motion. There is no ventricular septal defect visualized. LVEF is 55 %. Right Ventricle The right ventricle is normal size. The right ventricular systolic function is normal. Atria The left atrium size is normal. The right atrium size is normal. The interatrial septum is intact wit h no evidence for an atrial septal defect. Aortic Valve The Aortic valve is sclerotic. Aortic valve is trileaflet. There is no aortic valvular stenosis. No a ortic regurgitation is present. Mitral Valve The mitral valve is normal in structure. No evidence of mitral valve stenosis. Trace mitral regurgita tion. Tricuspid Valve The tricuspid valve is normal in structure. There is no tricuspid valve stenosis. Trace tricuspid reg urgitation. Unable to assess PA pressure. Pulmonic Valve The pulmonary valve is normal in structure. There is no pulmonic valvular stenosis. There is no pulmo monica valvular regurgitation. Great Vessels The aortic root is normal in size. The ascending aorta is normal in size. Aortic arch is not well vis ualized. IVC is normal in size and collapses >50% with inspiration. Pericardium There is no pericardial effusion. 2D Dimensions IVSD d PLAX 1.29 cm M: 0.6-1.2 LV Vol A2C d MOD 92.1 mL LVPW d PLAX 1.28 cm M: 0.6 - 1.2 LV Vol A4C d MOD 105.9 mL LVID d PLAX 4.64 cm M: 4.2 - 5.8 LA vol/ BSA A2C s A-L 23.1 mL/m2 LVDs 3.20 cm M: 2.5 - 4.0 LA vol/ BSA A4C s A-L 26.4 mL/m2 Ao Root d 2.74 cm M: 3.1 - 3.7 LA Vol/ BSA Biplane s A-L 25.2 mL/m2 RA Area A4C 16.92 cm2 LA Area A4C s MOD 20.06 cm2 RA Vol/ BSA A4C s A-L 20.4 mL/m2 LA Area A2C s MOD 18.39 cm2 Ao Asc Diam d 3.13 cm M: 2.6 - 3.4 LV EF A4C MOD 55.7 % LV EF Teichholz 58.2 % LV EF A2C MOD 55.0 % LVEF (Merino's) 55.05 % M: 52 - 72 LV EF Biplane MOD 55.0 % LV Volume 71.52 mL M: 62 - 150 SV 54.81 mL LV Volume Index 31.23 mL/m2 M: 34 - 74 SV Index 23.93 mL/m2 LV Vol Biplane MOD 99.6 mL FS 30.65 % M-Mode TAPSE 1.97 cm (M/F) >1.7 LV Diastology MV E' medial 0.073 (>0.07 m/s) E/A Ratio 0.7 LV E/e MED 8.45 (<14) MV E Vmax 0.62 (0.4-1.3 m/s) MV E' lateral 0.073 (>0.1 m/s) MV A Vmax 0.85 (0.4-1.3 m/s) LV E/e LAT 8.45 (<14) MV E/A Ratio 0.72 MV E/E' medial 8.49 MV E/E' lateral 8.49 Aortic Valve LVOT Area 2.89 cm2 AoV Area Vmax 2.07 cm2 LVOT Vmax 1.24 m/s AoV Area/ BSA (Vmax) 0.91 cm2/m2 LVOT Mean Eliel. 0.90 m/s KARLEY Mean Eliel. 1.87 cm2 LVOT Peak Grad 6.1 mmHg KARLEY Mean Eliel. Index 0.81 cm2/m2 LVOT Mean Grad 3.7 mmHg LVOT VTI 0.242 m LVOT Diam s 1.90 cm AoV Vmax 1.72 m/s Velocity Ratio 0.72 AoV Mean Eliel. 1.39 m/s AoV Peak Grad 11.8 mmHg LVOT SV 69.81 mL AoV Mean Grad 8.2 mmHg AoV VTI 0.345 m AoV Area VTI 2.02 cm2 AoV Area/ BSA (VTI) 0.88 cm/m2 Mitral Valve MV DT 239 (160-240 msec) MV PHT 69 msec MV Area PHT 3.17 cm2 MV VTI 0.258 m MV Area VTI 2.71 (4.0-6.0 cm2) Pulmonary Valve PV Vmax 1.06 (0.5-1.5 m/s) RVOT Peak Gr. 1.55 mmHg PV Peak Grad 4.5 mmHg RVOT Mean Gr. 0.85 mmHg PV Mean Grad 3.1 mmHg RVOT VTI 0.117 m PV VTI 0.201 m RVOT Vmax 0.62 m/s
== END 2021-10-30 01:16 ==
PROVIDERS: PCP Family Medicine; Visit Provider Family Medicine
DX: I34.0 Nonrheumatic mitral (valve) insufficiency (principal); R06.09 Other forms of dyspnea
CPT/HCPCS: 93306

== ENCOUNTER 2022-02-13 11:33 | Outpatient (CLI) | payer MEDICARE, SELFPAY | END 2022-02-13 11:34 | disposition home or self-care (01) | LOC: DIORS 11:33 | PROVIDERS: PCP Family Medicine; Referring Provider Family Medicine; Visit Provider Student in an Organized Health Care Education/Training Program | DX: Z96.641 Presence of right artificial hip joint (principal) | CPT/HCPCS: 99212 ==

== ENCOUNTER 2022-04-24 14:33 | Outpatient (REF) | payer MEDICARE, SELFPAY ==
[2022-04-26 18:22] LABS: Albumin ug/mg Crea 148 (<30); Albumin, Ur 8.8 mg/dL (See Note); Creatinine, Ur 59.5 mg/dL (See Note)
== END 2022-04-24 14:34 | disposition home or self-care (01) ==
LOC: NCHCN 14:33
PROVIDERS: PCP Family Medicine; Visit Provider Family Medicine
DX: E11.9 Type 2 diabetes mellitus without complications (principal)
CPT/HCPCS: 82043; 82570

== ENCOUNTER 2022-05-11 13:38 | Emergency (ER) | payer MEDICARE, SELFPAY ==
[2022-05-11 13:54] VITALS: BP 164/62; PULSE 77; RESP 16; TEMP 36.4; O2SAT 99
--- NOTE | 2022-05-11 14:47 | ED.GENADUL_ITS ---
Discharge Plan Disposition Patient Disposition: HOME Condition: Stable Discharge Details Clinical Impression: Abscess of abdominal wall Primary Care Provider: Soledad Slaughter ED Provider: Kayla Chino Home Meds and New Rx's Prescriptions: New clindamycin HCl 150 mg capsule 450 mg PO TID 7 Days Qty: 63 0RF Continued furosemide 20 mg tablet 40 mg PO DAILY insulin glargine [Lantus Solostar U-100 Insulin] 100 unit/mL (3 mL) insulin pen 10 unit subcut QPM B12 Active 1,000 mcg tablet,chewable 2,000 mcg PO DAILY ferrous sulfate 325 mg (65 mg iron) tablet 325 mg PO DAILY cholecalciferol (vitamin D3) 50 mcg (2,000 unit) capsule 50 mcg PO DAILY Galzin 50 mg (zinc) capsule 50 mg PO DAILY citalopram 20 MG tablet 10 mg PO DAILY Diabetic Shoe w Lift Qty: 1 0RF Rx Instructions: Please provide a diabetic shoes. On the left side, please accomodate for left leg length discrepancy, right longer than left. Recommend 1.5cm lift built into the left shoe. Diabetic Shoe w Lift 0RF atorvastatin [Lipitor] 40 MG tablet 40 mg PO DAILY Qty: 0 0RF Rx Instructions: discuss dose with Dr. Slaughter aspirin 81 MG tablet,delayed release (DR/EC) 81 mg PO DAILY Qty: 100 0RF metolazone 2.5 mg Tablet 2.5 mg PO .TWICE WEEKLY metformin 500 mg Tablet 1,000 mg PO BID cyanocobalamin (vitamin B-12) [Vitamin B-12] 1,000 mcg Tablet 1,000 mcg PO BID clopidogrel 75 mg Tablet 75 mg PO DAILY allopurinol 100 mg Tablet 100 mg PO DAILY acetaminophen [Tylenol Arthritis Pain] 650 mg Tablet Extended Release 650 mg PO Q4H PRN PRN fluticasone propion-salmeterol [Advair Diskus] 500-50 mcg/dose Blister With Device 1 inh INHALATION BID naproxen 500 mg Tablet 500 mg PO BID PRN Spiriva with HandiHaler 18 mcg Capsule, W/Inhalation Device 1 cap INHALATION DAILY clonidine HCl 0.3 mg tablet 0.6 mg PO DAILY albuterol sulfate [Proventil HFA] 90 mcg/actuation HFA aerosol inhaler 2 puff IH Q6H PRN (Reason: shortness of breath or wheezing) Qty: 8.5 0RF pantoprazole 40 mg tablet,delayed release (DR/EC) 40 mg PO DAILY AM lisinopril 40 mg tablet 40 mg PO DAILY amlodipine 5 mg tablet 10 mg PO HS Discharge Instructions Instructions: Abscess (ED) Additional Instructions: Change dressing daily. Keep clean and dry. Please return to the ER sooner if the redness moves outside of the marked line. This may continue to drain that is okay. Take the antibiotics as directed 3 tablets 3 times a day for the next 7 days. Take the antibiotics with food, yogurt or probiotic. Follow up with primary care provider in 3-5 days. Return to ED sooner if any worsening or concerns. Increase oral fluids. Please take Tylenol with food every 4-6 hours as needed for pain and swelling. Referrals: Soledad Slaughter MD [Primary Care Provider] - 3 days (Wound recheck) Discharge Data Discharge Date/Time-TO BE ENTERED AT DEPARTURE: 05/11/22 15:34 Medical Decision Making 81-year-old male presents to the ER with chief complaint of right lower quadrant swelling and infection which she noticed began on and has worsened over the weekend. Use of insulin-dependent diabetic get himself insulin shots. He reports that since noticing the area he has changed spots for his injections. He also is on clopidogrel blood thinner. Discussed recommendation for incision and drainage patient verbalized understanding is in agreement with plan. Abscess cleaned with Betadine and alcohol, anesthetized with 1% lidocaine with epinephrine patient tolerated well. Small incision made with an 11 blade. Moderate amount of bloody purulent fluid expressed. Patient given ABD pads and dressing was applied. Patient was placed on clindamycin first dose given here and instructed on use and follow-up care. Patient instructed to have a wound recheck in 3 days by PCP or return to the ER. Discussed strict return instructions. This text was generated using [employer] dictation system, please disregard any oddities of phrase or misspellings. HPI General Mode of arrival: ambulatory . Date/Time Provider Initiated Documentation: 05/11/22 13:38 . Limitations to Documentation: no limitations . Information obtained by: patient, RN notes reviewed and old records reviewed . HPI Narrative: 81-year-old male presents to the ER with chief complaint of right lower quadrant swelling and infection which she noticed began on Thursday and has worsened over the weekend. Use of insulin-dependent diabetic get himself insulin shots. He reports that since noticing the area he has changed spots for his injections. He also is on clopidogrel blood thinner. He did have a large area of erythema with a central swollen area of fluctuance and ecchymosis. He denies any fever or chills. Other past medical history includes COPD, cellulitis, cirrhosis, diabetes, hyperlipidemia, hypertension and history of a TIA. Related Data Home Medications Medication Instructions Recorded Confirmed citalopram 20 mg tablet 10 mg PO DAILY 12/02/12 03/10/21 atorvastatin 40 mg tablet (Lipitor) 40 mg PO DAILY ##0 03/28/15 03/10/21 aspirin 81 mg tablet,delayed 81 mg PO DAILY ##100 04/05/17 03/10/21 release acetaminophen 650 mg 650 mg PO Q4H PRN PRN 03/13/19 03/10/21 tablet,extended release (Tylenol Arthritis Pain) allopurinol 100 mg tablet 100 mg PO DAILY 03/13/19 03/10/21 clopidogrel 75 mg tablet 75 mg PO DAILY 03/13/19 03/10/21 cyanocobalamin (vitamin B-12) 1,000 mcg PO BID 03/13/19 03/10/21 1,000 mcg tablet (Vitamin B-12) fluticasone 500 mcg-salmeterol 50 1 inh inhalation BID 03/13/19 03/10/21 mcg/dose blistr powdr for inhalation (Advair Diskus) metformin 500 mg tablet 1,000 mg PO BID 03/13/19 03/10/21 metolazone 2.5 mg tablet 2.5 mg PO .TWICE WEEKLY 03/13/19 03/10/21 naproxen 500 mg tablet 500 mg PO BID PRN 03/13/19 03/10/21 tiotropium bromide 18 mcg capsule 1 cap inhalation DAILY 03/13/19 03/10/21 with inhalation device (Spiriva with HandiHaler) albuterol sulfate 90 mcg/actuation 2 puff inhalation Q6H PRN 09/13/19 03/10/21 aerosol inhaler (Proventil HFA) shortness of breath or wheezing #8.5 grams lisinopril 40 mg tablet 40 mg PO DAILY 03/10/21 03/10/21 pantoprazole 40 mg tablet,delayed 40 mg PO DAILY AM 03/10/21 03/10/21 release amlodipine 5 mg tablet 10 mg PO HS 02/13/22 02/13/22 cholecalciferol (vitamin D3) 50 50 mcg PO DAILY 02/13/22 02/13/22 mcg (2,000 unit) capsule clonidine HCl 0.3 mg tablet 0.6 mg PO DAILY 02/13/22 02/13/22 ferrous sulfate 325 mg (65 mg 325 mg PO DAILY 02/13/22 02/13/22 iron) tablet furosemide 20 mg tablet 40 mg PO DAILY 02/13/22 02/13/22 insulin glargine 100 unit/mL (3 10 unit subcut QPM 02/13/22 02/13/22 mL) subcutaneous pen (Lantus Solostar U-100 Insulin) mecobalamin (vitamin B12) 1,000 2,000 mcg PO DAILY 02/13/22 02/13/22 mcg chewable tablet (B12 Active) zinc acetate 50 mg (zinc) capsule 50 mg PO DAILY 02/13/22 02/13/22 (Galzin) clindamycin HCl 150 mg capsule 450 mg PO TID 7 days #63 caps 05/11/22 Previous Rx's Medication Instructions Recorded atorvastatin 40 mg tablet (Lipitor) 40 mg PO DAILY ##0 03/28/15 aspirin 81 mg tablet,delayed 81 mg PO DAILY ##100 04/05/17 release albuterol sulfate 90 mcg/actuation 2 puff inhalation Q6H PRN 09/13/19 aerosol inhaler (Proventil HFA) shortness of breath or wheezing #8.5 grams clindamycin HCl 150 mg capsule 450 mg PO TID 7 days #63 caps 05/11/22 Allergies Allergy/AdvReac Type Severity Reaction Status Date / Time cephalexin AdvReac Intermediate genitourinary Verified 05/11/22 13:57 edema General Stated Complaint: Cellulitis MAURILIO: 3 Review of Systems All systems reviewed & are unremarkable except as noted in HPI and below PFSH All Active Problems (Updated 05/11/22 @ 15:21 by Kayla Chino NP) Abscess of abdominal wall (Acute) Primary osteoarthritis of right knee (Acute 11/01/17) Leg length discrepancy (Acute 02/09/18) Slurred speech (Acute) Weakness (Acute) Diabetic ulcer of right lower leg associated with diabetes mellitus due to underlying condition, with fat layer exposed (Acute) Venous stasis ulcer of ankle limited to breakdown of skin (Acute) Venous stasis (Acute) Ulcer of right lower leg (Acute) Community acquired pneumonia (Acute) With hypoxia and bronchospasm. 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) (Acute) Cellulitis of leg, right (Acute) Chronic venous stasis dermatitis of both lower extremities (Acute) DVT prophylaxis (Acute) Medical History (Updated 05/11/22 @ 15:21 by Kayla Chino NP) Cellulitis Cirrhosis COPD (chronic obstructive pulmonary disease) Diabetes HLD (hyperlipidemia) HTN (hypertension) Hx TIA/stroke w/o resid SAMMI on CPAP Renal insufficiency Venous stasis ulcer right lateral calf Surgical History H/O rectal sphincterotomy History of appendectomy History of cholecystectomy History of surgery Debridement of right leg wound with Apligraf History of total right hip arthroplasty Family History Other Neoplasm Stroke Social History Smoking/Tobacco Use Status: Former Tobacco Use Quit Date: 03/06/84 Smoking risk assessment performed?: Yes Alcohol Intake: never Drug use: Never Substance use type: does not use Do you feel safe at home: Yes Do you feel safe in your relationship?: Yes Exam GI Abdomen image: 1. Approximately 5 cm x 5 cm area of fluctuance and overlying ecchymosis 2. Area of erythema Course Vital Signs Vital signs: Vital Signs Temperature 36.4 C L 05/11/22 13:54 Pulse 77 05/11/22 13:54 Respiratory Rate 16 05/11/22 13:54 Blood Pressure 164/62 H 05/11/22 13:54 Pulse Oximetry 99 05/11/22 13:54 Temperature 36.4 C L 05/11/22 13:54 Temperature Source Tympanic 05/11/22 13:54 Pulse 77 05/11/22 13:54 Respiratory Rate 16 05/11/22 13:54 Respiratory Effort Non-Labored 05/11/22 13:58 Blood Pressure 164/62 H 05/11/22 13:54 Blood Pressure Position Sitting 05/11/22 13:54 Pulse Oximetry 99 05/11/22 13:54 Oxygen Delivery Method Room Air 05/11/22 13:54 Oxygen Flow Rate 0 05/11/22 13:54 Pain Level 7 05/11/22 13:54 Procedures Abscess I/D Site: Abdomen (RLQ) Side (if applicable): Right Sedation/analgesia: None Local Anesthetic: Lidocaine 1% and With Epi Amount of anesthesia used (mL): 2 Technique: Incised with #11 Blade Amount of fluid expressed (mL): 10 (Purulent bloody drainage) Irrigation: No Packing used?: None Complications: Bleeding
[2022-05-11] MEDS: Clindamycin 150 MG CAP 450 MG PO (15:23)
--- NOTE | 2022-05-11 15:23 | NUR.NOTE ---
Nursing Note: Referral faxed to PCP for wound check in 3 days
[2022-05-11] MEDS: Clindamycin 150 MG CAP, 12 CAPS/BTL 450 MG PO (15:33)
== END 2022-05-11 15:34 | disposition home or self-care (01) ==
PROVIDERS: Emergency Provider Registered Nurse Emergency; PCP Family Medicine
DX: L02.211 Cutaneous abscess of abdominal wall (principal); J44.9 Chronic obstructive pulmonary disease, unspecified; E11.9 Type 2 diabetes mellitus without complications; I10 Essential (primary) hypertension; Z86.73 Personal history of transient ischemic attack (TIA), and cerebral infarction without residual deficits; Z87.891 Personal history of nicotine dependence; R23.3 Spontaneous ecchymoses
CPT/HCPCS: 10060; 99283; 99282

== ENCOUNTER → 2022-05-25 13:41 | Outpatient (BNVA) | payer MEDICARE, SELFPAY | PROVIDERS: PCP Family Medicine; Referring Provider Family Medicine; Visit Provider Surgery | DX: L02.211 Cutaneous abscess of abdominal wall (principal); Z51.89 Encounter for other specified aftercare ==

== ENCOUNTER → 2022-06-11 11:00 | Outpatient (BNVA) | payer MEDICARE, SELFPAY | PROVIDERS: PCP Family Medicine; Referring Provider Family Medicine; Visit Provider Surgery | DX: L02.211 Cutaneous abscess of abdominal wall (principal); R00.1 Bradycardia, unspecified; I34.0 Nonrheumatic mitral (valve) insufficiency; M17.11 Unilateral primary osteoarthritis, right knee; E08.622 Diabetes mellitus due to underlying condition with other skin ulcer | CPT/HCPCS: 99212 ==

== ENCOUNTER 2022-06-26 14:48 | Emergency (ER) | payer MEDICARE, SELFPAY ==
[2022-06-26 15:01] VITALS: BP 120/51; PULSE 75; RESP 20; TEMP 36.8; O2SAT 94
--- NOTE | 2022-06-26 15:41 | ED.GENADUL_ITS ---
Discharge Plan Disposition Patient Disposition: HOME Condition: Stable Discharge Details Clinical Impression: COVID Primary Care Provider: Soledad Slaughter ED Provider: Isaiah Figueroa Home Meds and New Rx's Prescriptions: Continued Levemir U-100 Insulin 100 unit/mL solution 10 unit subcut QHS furosemide 20 mg tablet 40 mg PO DAILY insulin glargine [Lantus Solostar U-100 Insulin] 100 unit/mL (3 mL) insulin pen 10 unit subcut QPM B12 Active 1,000 mcg tablet,chewable 2,000 mcg PO DAILY ferrous sulfate 325 mg (65 mg iron) tablet 325 mg PO DAILY cholecalciferol (vitamin D3) 50 mcg (2,000 unit) capsule 50 mcg PO DAILY Galzin 50 mg (zinc) capsule 50 mg PO DAILY citalopram 20 MG tablet 10 mg PO DAILY Diabetic Shoe w Lift Qty: 1 0RF Rx Instructions: Please provide a diabetic shoes. On the left side, please accomodate for left leg length discrepancy, right longer than left. Recommend 1.5cm lift built into the left shoe. Diabetic Shoe w Lift 0RF atorvastatin [Lipitor] 40 MG tablet 40 mg PO DAILY Qty: 0 0RF Rx Instructions: discuss dose with Dr. Slaughter aspirin 81 MG tablet,delayed release (DR/EC) 81 mg PO DAILY Qty: 100 0RF metolazone 2.5 mg Tablet 2.5 mg PO .TWICE WEEKLY metformin 500 mg Tablet 1,000 mg PO BID cyanocobalamin (vitamin B-12) [Vitamin B-12] 1,000 mcg Tablet 1,000 mcg PO BID clopidogrel 75 mg Tablet 75 mg PO DAILY allopurinol 100 mg Tablet 100 mg PO DAILY acetaminophen [Tylenol Arthritis Pain] 650 mg Tablet Extended Release 650 mg PO Q4H PRN PRN fluticasone propion-salmeterol [Advair Diskus] 500-50 mcg/dose Blister With Device 1 inh INHALATION BID naproxen 500 mg Tablet 500 mg PO BID PRN Spiriva with HandiHaler 18 mcg Capsule, W/Inhalation Device 1 cap INHALATION DAILY clonidine HCl 0.3 mg tablet 0.6 mg PO DAILY albuterol sulfate [Proventil HFA] 90 mcg/actuation HFA aerosol inhaler 2 puff IH Q6H PRN (Reason: shortness of breath or wheezing) Qty: 8.5 0RF pantoprazole 40 mg tablet,delayed release (DR/EC) 40 mg PO DAILY AM lisinopril 40 mg tablet 40 mg PO DAILY amlodipine 5 mg tablet 10 mg PO HS Discharge Instructions Instructions: COVID-19 (Coronavirus Disease 2019) (ED) Additional Instructions: if you feel you have worsening trouble breathing, severe pain or feel more ill return to the emergency department follow up with your primary care provider within 1-2 weeks if symptoms continue Medical Decision Making 81 yo male with hx of htn, dm, who comes in with nasal congestion and dry cough since yesterday and both him and his significant other tested positive at home for covid this morning. He denies dyspnea, fevers, chills, chest pain,n/v. He wasn't sure what to do after testing positive so came here. He arrives stable, speaking in full sentences in no distress and appears well. He has clear lungs, no jvd, soft nontender abdomen. NO hypoxia and stable vitals. Given positive at home test do not feel further testing indicated, normal lung sounds and appears well so doubt pneumonia or other serious bacterial illness so do not feel xray or other tests indicated. He is on multiple medications and discussed with him paxlovid vs MAB and he prefers MAB so he doesn't have to adjust any of his meds potentially. Will order MAB and reassess. pt resting in bed in no distress and states feels better, stable vitals and no issues during infusion. He is stable for d/c, will f/u with pcp as needed return precautions given Differential Diagnosis Differential Diagnosis: covid, viral uri, sinusitis HPI General Mode of arrival: ambulatory . Date/Time Provider Initiated Documentation: 06/26/22 15:00 . Limitations to Documentation: no limitations . Information obtained by: patient . History of Present Illness 81 year old M presents to the emergency department with the chief complaint of nasal congestion, described as moderate, Patient started experiencing this day(s) (1) and it has been constant. No relieving factors improve symptom(s), No exacerbating factors reported . Patient notes cough; denies diaphoresis and fever/chills. Patient did receive the following treatments prior to arrival, none Related Data Home Medications Medication Instructions Recorded Confirmed citalopram 20 mg tablet 10 mg PO DAILY 12/02/12 06/26/22 atorvastatin 40 mg tablet (Lipitor) 40 mg PO DAILY ##0 03/28/15 06/26/22 aspirin 81 mg tablet,delayed 81 mg PO DAILY ##100 04/05/17 06/26/22 release acetaminophen 650 mg 650 mg PO Q4H PRN PRN 03/13/19 06/26/22 tablet,extended release (Tylenol Arthritis Pain) allopurinol 100 mg tablet 100 mg PO DAILY 03/13/19 06/26/22 clopidogrel 75 mg tablet 75 mg PO DAILY 03/13/19 06/26/22 cyanocobalamin (vitamin B-12) 1,000 mcg PO BID 03/13/19 06/26/22 1,000 mcg tablet (Vitamin B-12) fluticasone 500 mcg-salmeterol 50 1 inh inhalation BID 03/13/19 06/26/22 mcg/dose blistr powdr for inhalation (Advair Diskus) metformin 500 mg tablet 1,000 mg PO BID 03/13/19 06/26/22 metolazone 2.5 mg tablet 2.5 mg PO .TWICE WEEKLY 03/13/19 06/26/22 naproxen 500 mg tablet 500 mg PO BID PRN 03/13/19 06/26/22 tiotropium bromide 18 mcg capsule 1 cap inhalation DAILY 03/13/19 06/26/22 with inhalation device (Spiriva with HandiHaler) albuterol sulfate 90 mcg/actuation 2 puff inhalation Q6H PRN 09/13/19 06/26/22 aerosol inhaler (Proventil HFA) shortness of breath or wheezing #8.5 grams lisinopril 40 mg tablet 40 mg PO DAILY 03/10/21 06/26/22 pantoprazole 40 mg tablet,delayed 40 mg PO DAILY AM 03/10/21 06/26/22 release amlodipine 5 mg tablet 10 mg PO HS 02/13/22 06/26/22 cholecalciferol (vitamin D3) 50 50 mcg PO DAILY 02/13/22 06/26/22 mcg (2,000 unit) capsule clonidine HCl 0.3 mg tablet 0.6 mg PO DAILY 02/13/22 06/26/22 ferrous sulfate 325 mg (65 mg 325 mg PO DAILY 02/13/22 06/26/22 iron) tablet furosemide 20 mg tablet 40 mg PO DAILY 02/13/22 06/26/22 insulin glargine 100 unit/mL (3 10 unit subcut QPM 02/13/22 06/26/22 mL) subcutaneous pen (Lantus Solostar U-100 Insulin) mecobalamin (vitamin B12) 1,000 2,000 mcg PO DAILY 02/13/22 06/26/22 mcg chewable tablet (B12 Active) zinc acetate 50 mg (zinc) capsule 50 mg PO DAILY 02/13/22 06/26/22 (Galzin) insulin detemir U-100 100 unit/mL 10 unit subcut QHS 05/25/22 06/26/22 subcutaneous solution (Levemir U-100 Insulin) Previous Rx's Medication Instructions Recorded atorvastatin 40 mg tablet (Lipitor) 40 mg PO DAILY ##0 03/28/15 aspirin 81 mg tablet,delayed 81 mg PO DAILY ##100 04/05/17 release albuterol sulfate 90 mcg/actuation 2 puff inhalation Q6H PRN 09/13/19 aerosol inhaler (Proventil HFA) shortness of breath or wheezing #8.5 grams Allergies Allergy/AdvReac Type Severity Reaction Status Date / Time cephalexin AdvReac Intermediate genitourinary Verified 06/11/22 11:05 edema General Stated Complaint: RespSymp MAURILIO: 4 Review of Systems All systems reviewed & are unremarkable except as noted in HPI and below Constitutional Constitutional: Denies chills, Denies fever(s) and Denies weakness Cardiovascular Cardiovascular: Denies chest pain and Denies dyspnea Respiratory Respiratory: Denies dyspnea Gastrointestinal Gastrointestinal: Denies abdominal pain, Denies nausea and Denies vomiting Genitourinary Genitourinary: Denies dysuria Musculoskeletal Musculoskeletal: Denies joint swelling Integumentary/Breasts Skin/Breast: Denies rash Neurologic Neurologic: Denies weakness PFSH All Active Problems (Updated 06/26/22 @ 15:46 by Isaiah Fgiueroa MD) COVID (Acute) Cutaneous abscess of abdominal wall (Acute) Bradycardia (Acute) Mitral valve regurgitation (Chronic) Primary osteoarthritis of right knee (Acute 11/01/17) Leg length discrepancy (Acute 02/09/18) Slurred speech (Acute) Weakness (Acute) Diabetic ulcer of right lower leg associated with diabetes mellitus due to underlying condition, with fat layer exposed (Acute) Venous stasis ulcer of ankle limited to breakdown of skin (Acute) Venous stasis (Acute) Ulcer of right lower leg (Acute) Community acquired pneumonia (Acute) With hypoxia and bronchospasm. 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) (Acute) Cellulitis of leg, right (Acute) Chronic venous stasis dermatitis of both lower extremities (Acute) DVT prophylaxis (Acute) Medical History (Updated 06/26/22 @ 15:46 by Isaiah Figueroa MD) Cellulitis Cirrhosis COPD (chronic obstructive pulmonary disease) CVA (cerebral vascular accident) Diabetes HLD (hyperlipidemia) HTN (hypertension) Hx TIA/stroke w/o resid SAMMI on CPAP Renal insufficiency Venous stasis ulcer right lateral calf Surgical History H/O rectal sphincterotomy History of appendectomy History of cholecystectomy History of surgery Debridement of right leg wound with Apligraf History of total right hip arthroplasty Family History Other Neoplasm Stroke Social History Smoking/Tobacco Use Status: Former Tobacco Use Quit Date: 03/06/84 Smoking risk assessment performed?: Yes Alcohol Intake: never Drug use: Never Substance use type: does not use Do you feel safe at home: Yes Do you feel safe in your relationship?: Yes Exam Const General: no acute distress Orientation: alert HENMT Head: normal to inspection Ears: external ears normal General nose exam: external nose normal Mouth: moist mucous membranes Eyes General: appearance normal, both eyes and all related structures Neck Neck: normal visual inspection Resp Effort & Inspection: normal respiratory effort, able to speak in complete sentences and no nasal flaring Auscultation: clear to auscultation bilaterally Cardio Rate: regular rate Skin General skin exam: no rashes or lesions noted Neuro General: patient alert and patient oriented x3 Extrem General: normal to inspection Psych Mental Status: mental status grossly normal Course Vital Signs Vital signs: Vital Signs Temperature 36.8 C 06/26/22 15:01 Pulse 75 06/26/22 15:01 Respiratory Rate 20 06/26/22 15:01 Blood Pressure 120/51 L 06/26/22 15:01 Pulse Oximetry 94 06/26/22 15:01 Temperature 36.8 C 06/26/22 15:01 Pulse 75 06/26/22 15:01 Respiratory Rate 20 06/26/22 15:01 Respiratory Effort 06/26/22 15:20 Respiratory Depth Normal 06/26/22 15:20 Blood Pressure 120/51 L 06/26/22 15:01 Blood Pressure Position Sitting 06/26/22 15:01 Pulse Oximetry 94 06/26/22 15:01 Oxygen Delivery Method Room Air 06/26/22 15:01 Oxygen Flow Rate 0 06/26/22 15:01 Pain Level 0 06/26/22 15:01
[2022-06-26 17:13] VITALS: BP 157/68; PULSE 69; RESP 20; O2SAT 96
== END 2022-06-26 17:15 | disposition home or self-care (01) ==
PROVIDERS: Emergency Provider Emergency Medicine; PCP Family Medicine
DX: U07.1 COVID-19 (principal); J44.9 Chronic obstructive pulmonary disease, unspecified; I10 Essential (primary) hypertension; E11.9 Type 2 diabetes mellitus without complications; Z87.891 Personal history of nicotine dependence; Z79.4 Long term (current) use of insulin; Z79.84 Long term (current) use of oral hypoglycemic drugs; Z79.51 Long term (current) use of inhaled steroids
CPT/HCPCS: 96361; 96374; 99284; Q0222

== ENCOUNTER 2022-10-22 17:34 | Outpatient (REF) | payer MEDICARE, SELFPAY ==
[2022-10-22 16:21] LABS: Hemoglobin A1C 7.2 % (<5.7)
== END 2022-10-22 17:35 | disposition home or self-care (01) ==
LOC: NCHCN 17:34
PROVIDERS: PCP Family Medicine; Visit Provider Family Medicine
DX: E11.9 Type 2 diabetes mellitus without complications (principal)
CPT/HCPCS: 83036

== ENCOUNTER 2023-02-10 15:18 | Outpatient (REF) | payer MEDICARE, SELFPAY ==
[2023-02-10 16:14] LABS: HCT 34.8 % (40.0-50.0); HGB 10.9 g/dL (13.5-17.5); MCH 27.6 pg (27.0-33.0); MCHC 31.3 % (32.0-36.0); MCV 88 fL (80-95); MPV 10.8 fL (8.0-11.0); Platelet Count 152 10^3/uL (130-400); RBC 3.95 10^6/uL (4.36-5.78); RDW 14.6 % (11.8-14.1); RDW-SD 47.1 fL; WBC 5.39 10^3/uL (4.4-10.8)
[2023-02-10 16:22] LABS: ALT 26 U/L (16-63); AST 24 U/L (15-37); Albumin 3.2 g/dL (3.4-5.0); Alkaline Phosphatase 169 U/L (46-116); Anion Gap 6.2 mmol/L (3-11); BUN 25 mg/dL (7-18); Bilirubin, Total 0.4 mg/dL (0.2-1.0); CO2 28.8 mmol/L (21.0-32.0); CREATININE 1.4 mg/dL (0.70-1.30); Calcium 8.7 mg/dL (8.5-10.1); Chloride 103 mmol/L (98-107); Estimated GFR 50.18 (mL/min/1.73m2); Glucose 126 mg/dL (74-106); Potassium 4.3 mmol/L (3.5-5.1); Sodium 138 mmol/L (136-145); Total Protein 7.2 g/dL (6.4-8.2); Uric Acid 6.1 mg/dL (3.5-7.2)
[2023-02-10 16:56] LABS: Hemoglobin A1C 7.4 % (<5.7)
[2023-02-10 19:08] LABS: COMMENT (LAB VIEW ONLY) 93.22 mg/dL
[2023-02-10 20:59] LABS: Microalb ug/mg Crea 162.3 ug/mg Cr
[2023-02-12 10:52] LABS: Alpha 1 Antitrypsin,Serum 162 mg/dL (90-200)
[2023-02-12 15:28] LABS: ANA Interpretation Positive (Negative); ANA Titer Pattern 1:640 Homogeneous
[2023-02-13 13:07] LABS: Mitochondrial Ab, M2 <0.1 U
[2023-02-13 16:52] LABS: Smooth Muscle Ab Screen Negative (Negative)
[2023-02-15 17:15] LABS: Liver/Kidney Microsome Type 1 <5.0 U
== END 2023-02-10 15:19 | disposition home or self-care (01) ==
LOC: NCHCN 15:18
PROVIDERS: PCP Family Medicine; Visit Provider Family Medicine
DX: E11.9 Type 2 diabetes mellitus without complications (principal); K74.60 Unspecified cirrhosis of liver; D50.9 Iron deficiency anemia, unspecified; M10.9 Gout, unspecified
CPT/HCPCS: 80053; 82390; 83516; 85027; 82043; 82103; 82570; 83036; 84550; 86038; 86255

== ENCOUNTER 2023-02-18 15:47 | Outpatient (REF) | payer MEDICARE, SELFPAY ==
[2023-02-18 19:59] LABS: TSH 2.31 uIU/mL (0.36-3.74)
[2023-02-23 13:28] LABS: dsDNA Ab, IgG 35.9 IU/mL (<30.0)
[2023-02-23 14:50] LABS: RNP Ab, IgG 2.6 Units (<20.0); SS-A Antibody 1.8 Units (<20.0); SS-B (La) Ab, IgG 2.6 Units (<20.0); Sm (Smith) Ab, IgG 2.5 Units (<20.0)
== END 2023-02-18 15:48 | disposition home or self-care (01) ==
LOC: NCHCN 15:47
PROVIDERS: PCP Family Medicine; Visit Provider Family Medicine
DX: R79.89 Other specified abnormal findings of blood chemistry (principal)
CPT/HCPCS: 84443; 86225; 86235

== ENCOUNTER 2023-03-01 02:04 | Outpatient (CLI) | payer MEDICARE, SELFPAY ==
--- NOTE | 2023-03-01 | DI.US_ITS ---
Exam(s) US ABDOMEN EXAM: US ABDOMEN CLINICAL HISTORY: CIRRHOSIS PRESUMED DUE TO GUERRA, K74.60 TECHNIQUE: Ultrasound abdomen performed using standard protocol. COMPARISON: US RENAL ULTRASOUND(P) from 03/11/2016 FINDINGS: Examination limited by patient body habitus. ABDOMINAL AORTA AND IVC: Visualized portions normal caliber. PANCREAS: Normal where visualized. LIVER: There is a coarsened echotexture without discrete mass. The liver measures 18 cm long. There is a mildly lobulated contour of the liver. Hepatopedal flow in the Portal Vein. GALLBLADDER:Status post cholecystectomy. BILIARY SYSTEM: Common bile duct measures < 7 mm. No intrahepatic biliary ductal dilation. KIDNEYS: Kidneys are symmetric in size. There are few echogenic foci seen bilaterally which may repre sent nonobstructing stones versus vascular calcifications. No evidence of hydronephrosis. Bilateral renal cysts. There is a question of a right renal mass in the inferior pole measuring 2.4 x 1.6 x 2. 2 cm. SPLEEN: Not enlarged. ASCITES: None seen. IMPRESSION: 1. Coarsened echotexture of the liver with a nodular contour suggesting hepatic cirrhosis. No eviden ce of a hepatic mass. 2. Status post cholecystectomy. 3. Question of a right renal mass in the inferior pole measuring 2.4 x 1.6 x 2.2 cm. Follow-up with a CT or MRI of the kidneys is recommended. Unexpected findings DATA REPOSITORY:
== END 2023-03-01 02:24 ==
LOC: DI 02:04
PROVIDERS: PCP Family Medicine; Visit Provider Family Medicine
DX: K91.5 Postcholecystectomy syndrome; R93.2 Abnormal findings on diagnostic imaging of liver and biliary tract
CPT/HCPCS: 76700

== ENCOUNTER 2023-03-11 02:04 | Outpatient (CLI) | payer MEDICARE, SELFPAY ==
[2023-03-11] MEDS: Gadoterate meglumine 20 ML VIAL IVP (15:04)
[2023-03-11] MEDS: Normal Saline - Diluent 50 ML VIAL IJ (15:04)
[2023-03-11] MEDS: Normal Saline Flush 10 ML SYR IVP (15:05)
--- NOTE | 2023-03-11 15:40 | DI.MRI_ITS ---
Exam(s) MR ABDOMEN WO/W EXAM: MR ABDOMEN WO/W CLINICAL HISTORY: KIDNEY MASS, N28.89, STAGE III CKD TECHNIQUE: Multiplanar multisequence MRI of the Abdomen was performed. CONTRAST MATERIAL: IV Contrast: 20 mL of Dotarem contrast administered. COMPARISON: CT CT CHEST WO from 03/10/2021 US US ABDOMEN from 03/01/2023 FINDINGS: Exam is limited by patient body habitus. Portions of the abdominal wall in not included on the exam. Exam limited by motion. Liver: Cirrhotic appearance. No focal lesions. Trace amount of fluid around the liver. Pancreas: Unremarkable. Gallbladder and Bile Ducts: Status post cholecystectomy. No biliary dilatation. Adrenals: Unremarkable. Kidneys: Multiple small bilateral cysts. Largest cyst is at the posterior inferior aspect of the rig ht kidney which has a cystic appearance on MRI. Spleen: Unremarkable. Aorta: Unremarkable. Soft Tissues: Unremarkable. Bone: Unremarkable. Lymph Nodes: No enlarged lymph nodes visible. Bowel: Colonic diverticulosis. No small bowel dilatation or wall thickening. IMPRESSION: Exam is limited by the patient's body habitus and motion. Questioned mass on the lower pole of the right kidney on ultrasound corresponds to a cyst by MRI. Cirrhotic appearing liver without focal mass. Status post cholecystectomy. No biliary dilatation. DATA REPOSITORY:
== END 2023-03-11 02:24 ==
LOC: DI 02:04
PROVIDERS: PCP Family Medicine; Visit Provider Family Medicine
DX: N28.89 Other specified disorders of kidney and ureter (principal)
CPT/HCPCS: 74183

== ENCOUNTER → 2023-04-27 10:53 | Outpatient (BNVA) | payer MEDICARE, SELFPAY | PROVIDERS: PCP Family Medicine; Referring Provider Family Medicine; Visit Provider Surgery | DX: L97.918 Non-pressure chronic ulcer of unspecified part of right lower leg with other specified severity (principal); I83.11 Varicose veins of right lower extremity with inflammation; I83.12 Varicose veins of left lower extremity with inflammation | CPT/HCPCS: 29580; 99212 ==

== ENCOUNTER → 2023-05-04 11:36 | Outpatient (BNVA) | payer MEDICARE, SELFPAY | PROVIDERS: PCP Family Medicine; Referring Provider Family Medicine; Visit Provider Surgery | DX: Z51.89 Encounter for other specified aftercare (principal); L97.311 Non-pressure chronic ulcer of right ankle limited to breakdown of skin; L97.321 Non-pressure chronic ulcer of left ankle limited to breakdown of skin; I87.8 Other specified disorders of veins | CPT/HCPCS: 29580; 99212 ==

== ENCOUNTER → 2023-05-07 10:20 | Outpatient (BNVA) | payer MEDICARE, SELFPAY | PROVIDERS: PCP Family Medicine; Referring Provider Family Medicine; Visit Provider Surgery | DX: Z48.89 Encounter for other specified surgical aftercare (principal); I83.11 Varicose veins of right lower extremity with inflammation; I83.12 Varicose veins of left lower extremity with inflammation | CPT/HCPCS: 93922; 99212 ==

== ENCOUNTER → 2023-05-11 12:33 | Outpatient (BNVA) | payer MEDICARE, SELFPAY | PROVIDERS: PCP Family Medicine; Referring Provider Family Medicine; Visit Provider Surgery | DX: I83.11 Varicose veins of right lower extremity with inflammation (principal); I83.12 Varicose veins of left lower extremity with inflammation | CPT/HCPCS: 11042; 29580; 99212 ==

== ENCOUNTER → 2023-05-14 10:48 | Outpatient (BNVA) | payer MEDICARE, SELFPAY | PROVIDERS: PCP Family Medicine; Referring Provider Family Medicine; Visit Provider Surgery | DX: L97.311 Non-pressure chronic ulcer of right ankle limited to breakdown of skin (principal); L97.321 Non-pressure chronic ulcer of left ankle limited to breakdown of skin | CPT/HCPCS: 99212; 99214 ==

== ENCOUNTER → 2023-05-21 08:34 | Outpatient (BNVA) | payer MEDICARE, SELFPAY | PROVIDERS: PCP Family Medicine; Referring Provider Family Medicine; Visit Provider Surgery | DX: L97.311 Non-pressure chronic ulcer of right ankle limited to breakdown of skin (principal); I83.12 Varicose veins of left lower extremity with inflammation | CPT/HCPCS: 99212; 99213 ==

== ENCOUNTER → 2023-06-04 11:13 | Outpatient (BNVA) | payer MEDICARE, SELFPAY | PROVIDERS: PCP Family Medicine; Referring Provider Family Medicine; Visit Provider Surgery | DX: I83.11 Varicose veins of right lower extremity with inflammation (principal); I83.12 Varicose veins of left lower extremity with inflammation | CPT/HCPCS: 99212 ==

== ENCOUNTER → 2023-08-20 00:33 | Outpatient (CLI) | payer MEDICARE, SELFPAY ==
--- NOTE | 2023-08-20 | DI.US_ITS ---
Exam(s) US ABDOMEN LIMITED EXAM: US ABDOMEN LIMITED CLINICAL HISTORY: CIRRHOSIS OF LIVER,K74.60 TECHNIQUE: Ultrasound abdomen performed using standard protocol. COMPARISON: US US ABDOMEN from 03/01/2023 MR MR ABDOMEN WO/W from 03/11/2023 FINDINGS: LIVER: Evaluation limited due to patient body habitus. Posterior portions of the liver are not well seen. Elongated right lobe, 18 cm in length. Increased echogenicity and coarsening of the echotextu re. Nodular liver surface. No focal liver lesions are seen.. GALLBLADDER: Status post cholecystectomy. ORR'S SIGN: Negative. BILIARY SYSTEM: No intrahepatic or extrahepatic biliary ductal dilation. RIGHT KIDNEY: Normal size. Right kidney poorly visualized due to patient body habitus and bowel gas. PANCREAS: Normal where visualized. ABDOMINAL AORTA AND IVC: Visualized portions normal caliber. ASCITES: None seen. IMPRESSION: Cirrhotic appearing liver. No mass visible. DATA REPOSITORY:
== END ==
PROVIDERS: PCP Family Medicine; Visit Provider Family Medicine
DX: K74.60 Unspecified cirrhosis of liver (principal)
CPT/HCPCS: 76705

== ENCOUNTER → 2023-10-11 10:36 | Outpatient (BNVA) | payer MEDICARE, SELFPAY | PROVIDERS: PCP Family Medicine; Referring Provider Family Medicine; Visit Provider Surgery | DX: K42.9 Umbilical hernia without obstruction or gangrene (principal); E66.9 Obesity, unspecified; J44.9 Chronic obstructive pulmonary disease, unspecified; E11.40 Type 2 diabetes mellitus with diabetic neuropathy, unspecified; E11.22 Type 2 diabetes mellitus with diabetic chronic kidney disease | CPT/HCPCS: 99214 ==

== ENCOUNTER 2023-11-17 15:38 | Outpatient (REF) | payer MEDICARE, SELFPAY ==
[2023-11-17 15:29] LABS: Abs Immature Grans 0.04 10^3/uL (0.0-0.06); Absolute Basophil Count 0.05 10^3/uL (0.0-0.2); Absolute Eosinophil Count 0.12 10^3/uL (0.0-0.7); Absolute Lymphocyte Count 1.32 10^3/uL (1.2-3.4); Absolute Monocyte Count 0.67 10^3/uL (0.1-0.8); Absolute Neutrophil Count 5.68 10^3/uL (1.2-6.7); Basophils % 0.6; Eosinophils % 1.5; HCT 38.6 % (40.0-50.0); Immature Grans % 0.5; Lymphocytes % 16.8; MCHC 31.1 % (32.0-36.0); MCV 87 fL (80-95); MPV 10.2 fL (8.0-11.0); Monocytes % 8.5; Neutrophils % 72.1; Platelet Count 232 10^3/uL (130-400); RBC 4.44 10^6/uL (4.36-5.78); RDW 14.5 % (11.8-14.1); WBC 7.88 10^3/uL (4.4-10.8)
[2023-11-17 15:45] LABS: ALT 42 U/L (16-63); AST 39 U/L (15-37); Albumin 2.8 g/dL (3.4-5.0); Alkaline Phosphatase 169 U/L (46-116); BUN 21 mg/dL (7-18); Bilirubin, Total 0.3 mg/dL (0.2-1.0); CREATININE 1.5 mg/dL (0.70-1.30); Calcium 8.9 mg/dL (8.5-10.1); Chloride 105 mmol/L (98-107); Estimated GFR 45.91 (mL/min/1.73m2); Glucose 236 mg/dL (74-106); Potassium 4.9 mmol/L (3.5-5.1); Sodium 142 mmol/L (136-145); Total Protein 6.9 g/dL (6.4-8.2); Uric Acid 6.3 mg/dL (3.5-7.2)
[2023-11-17 15:58] LABS: Hemoglobin A1C 6.7 % (<5.7)
== END 2023-11-17 15:39 | disposition home or self-care (01) ==
LOC: NCHCN 15:38
PROVIDERS: PCP Family Medicine; Visit Provider Family Medicine
DX: E11.9 Type 2 diabetes mellitus without complications (principal); D50.9 Iron deficiency anemia, unspecified; M10.9 Gout, unspecified; K74.60 Unspecified cirrhosis of liver
CPT/HCPCS: 80053; 83036; 84550; 85025

== ENCOUNTER → 2024-03-29 08:50 | Outpatient (BNVA) | payer MEDICARE, SELFPAY | PROVIDERS: PCP Family Medicine; Referring Provider Family Medicine; Visit Provider Podiatrist | DX: E11.621 Type 2 diabetes mellitus with foot ulcer (principal); E11.22 Type 2 diabetes mellitus with diabetic chronic kidney disease; N18.30 Chronic kidney disease, stage 3 unspecified; L97.911 Non-pressure chronic ulcer of unspecified part of right lower leg limited to breakdown of skin; I83.11 Varicose veins of right lower extremity with inflammation; I83.12 Varicose veins of left lower extremity with inflammation; I87.8 Other specified disorders of veins; B35.1 Tinea unguium; E11.42 Type 2 diabetes mellitus with diabetic polyneuropathy | CPT/HCPCS: 11055; 11721; 29581 ==

== ENCOUNTER 2024-03-29 17:11 | Outpatient (REF) | payer MEDICARE, SELFPAY ==
[2024-03-29 20:06] LABS: HCT 37.1 % (40.0-50.0); HGB 11.7 g/dL (13.5-17.5); MCH 27.5 pg (27.0-33.0); MCHC 31.5 % (32.0-36.0); MCV 87 fL (80-95); Platelet Count 258 10^3/uL (130-400); RBC 4.25 10^6/uL (4.36-5.78); RDW 14.3 % (11.8-14.1); RDW-SD 45.5 fL; WBC 9.15 10^3/uL (4.4-10.8)
[2024-03-29 20:22] LABS: ALT 25 U/L (16-63); AST 18 U/L (15-37); Albumin 2.9 g/dL (3.4-5.0); Alkaline Phosphatase 156 U/L (46-116); Anion Gap 8.2 mmol/L (3-11); BUN 34 mg/dL (7-18); CO2 30.8 mmol/L (21.0-32.0); CREATININE 1.6 mg/dL (0.70-1.30); Calcium 9.2 mg/dL (8.5-10.1); Chloride 102 mmol/L (98-107); Estimated GFR 42.49 (mL/min/1.73m2); Glucose 62 mg/dL (74-106); Potassium 4.2 mmol/L (3.5-5.1); Sodium 141 mmol/L (136-145); Total Protein 6.2 g/dL (6.4-8.2)
== END 2024-03-29 17:12 | disposition home or self-care (01) ==
LOC: NCHCN 17:11
PROVIDERS: PCP Family Medicine; Visit Provider Family Medicine
DX: K62.5 Hemorrhage of anus and rectum (principal); N18.30 Chronic kidney disease, stage 3 unspecified
CPT/HCPCS: 80053; 85027

== ENCOUNTER 2024-04-06 12:33 | Emergency (ER) | payer MEDICARE, SELFPAY ==
[2024-04-06 12:41] VITALS: BP 140/52; PULSE 72; RESP 16; TEMP 36.4; O2SAT 96
[2024-04-06 12:51] VITALS: O2SAT 94
[2024-04-06 12:52] VITALS: BP 167/65; PULSE 74; O2SAT 95
--- NOTE | 2024-04-06 12:56 | ED.GENADUL_ITS ---
Discharge Plan Disposition Patient Disposition: Home Condition: Improving Discharge Details Clinical Impression: Leg wound, right Primary Care Provider: Soledad Slaughter ED Provider: Ronnie Villasenor Home Meds and New Rx's Prescriptions: New clindamycin HCl 300 mg capsule 300 mg PO TID 5 Days Qty: 15 0RF No Action insulin degludec [Tresiba FlexTouch U-100] 100 unit/mL (3 mL) insulin pen 35 unit subcut DAILY tiotropium bromide [Spiriva with HandiHaler] 18 mcg capsule, w/inhalation device 1 cap inhalation DAILY Rx Instructions: puncture 1 cap using device; one dose = 2 inhalations Ozempic 1 mg/dose (4 mg/3 mL) pen injector 1 mg subcut QWEEK furosemide 20 mg tablet 40 mg PO DAILY ferrous sulfate 325 mg (65 mg iron) tablet 325 mg PO DAILY cholecalciferol (vitamin D3) 50 mcg (2,000 unit) capsule 50 mcg PO DAILY Galzin 50 mg (zinc) capsule 50 mg PO DAILY liraglutide [Victoza 3-Khanh] 0.6 mg/0.1 mL (18 mg/3 mL) pen injector 1.2 mg subcut DAILY citalopram 20 MG tablet 10 mg PO DAILY Diabetic Shoe w Lift Qty: 1 0RF Rx Instructions: Please provide a diabetic shoes. On the left side, please accomodate for left leg length discrepancy, right longer than left. Recommend 1.5cm lift built into the left shoe. Diabetic Shoe w Lift 0RF atorvastatin [Lipitor] 40 MG tablet 40 mg PO DAILY Qty: 0 0RF Rx Instructions: discuss dose with Dr. Slaughter aspirin 81 MG tablet,delayed release (DR/EC) 81 mg PO DAILY Qty: 100 0RF metolazone 2.5 mg Tablet 2.5 mg PO .TWICE WEEKLY metformin 500 mg Tablet 1,000 mg PO BID cyanocobalamin (vitamin B-12) [Vitamin B-12] 1,000 mcg Tablet 1,000 mcg PO BID clopidogrel 75 mg Tablet 75 mg PO DAILY allopurinol 100 mg Tablet 100 mg PO DAILY fluticasone propion-salmeterol [Advair Diskus] 500-50 mcg/dose Blister With Device 1 inh INHALATION BID clonidine HCl 0.3 mg tablet 0.3 mg PO BID lisinopril 40 mg tablet 40 mg PO DAILY amlodipine 5 mg tablet 10 mg PO HS pantoprazole 40 mg tablet,delayed release (DR/EC) 40 mg PO DAILY AM PRN Discharge Instructions Instructions: Wound Infection Additional Instructions: Please help with your primary care physician and podiatry. Please return to the emergency department for any worsening symptoms HPI General Date/Time Provider Initiated Documentation: 04/06/24 12:49 . HPI Narrative: 83-year-old male history of diabetes presents referred in by home health for evaluation of right lower extremity wound patient has shallow debridement of his right lower extremity anterior medial lomax that has been present for about 1 week, home health noticed some maggots on the wound at home, patient has no fevers chills or systemic signs of illness Related Data Home Medications ?Medication ?Instructions ?Recorded ?Confirmed citalopram 20 mg tablet 10 mg PO DAILY 12/02/12 04/06/24 atorvastatin 40 mg tablet (Lipitor) 40 mg PO DAILY ##0 03/28/15 04/06/24 aspirin 81 mg tablet,delayed 81 mg PO DAILY ##100 04/05/17 04/06/24 release allopurinol 100 mg tablet 100 mg PO DAILY 03/13/19 04/06/24 clopidogrel 75 mg tablet 75 mg PO DAILY 03/13/19 04/06/24 cyanocobalamin (vitamin B-12) 1,000 mcg PO BID 03/13/19 04/06/24 1,000 mcg tablet (Vitamin B-12) fluticasone 500 mcg-salmeterol 50 1 inh inhalation BID 03/13/19 04/06/24 mcg/dose blistr powdr for inhalation (Advair Diskus) metformin 500 mg tablet 1,000 mg PO BID 03/13/19 04/06/24 metolazone 2.5 mg tablet 2.5 mg PO .TWICE WEEKLY 03/13/19 04/06/24 lisinopril 40 mg tablet 40 mg PO DAILY 03/10/21 04/06/24 amlodipine 5 mg tablet 10 mg PO HS 02/13/22 04/06/24 cholecalciferol (vitamin D3) 50 50 mcg PO DAILY 02/13/22 04/06/24 mcg (2,000 unit) capsule ferrous sulfate 325 mg (65 mg 325 mg PO DAILY 02/13/22 04/06/24 iron) tablet furosemide 20 mg tablet 40 mg PO DAILY 02/13/22 04/06/24 zinc acetate 50 mg (zinc) capsule 50 mg PO DAILY 02/13/22 04/06/24 (Galzin) liraglutide 0.6 mg/0.1 mL (18 mg/3 1.2 mg subcut DAILY 04/27/23 04/06/24 mL) subcutaneous pen injector (Victoza 3-Khanh) clonidine HCl 0.3 mg tablet 0.3 mg PO BID 05/23/23 04/06/24 insulin degludec 100 unit/mL (3 35 unit subcut DAILY 10/11/23 04/06/24 mL) subcutaneous pen (Tresiba FlexTouch U-100 insulin) pantoprazole 40 mg tablet,delayed 40 mg PO DAILY AM PRN 10/11/23 04/06/24 release semaglutide 1 mg/dose (4 mg/3 mL) 1 mg subcut QWEEK 10/11/23 04/06/24 subcutaneous pen injector (Ozempic) tiotropium bromide 18 mcg capsule 1 cap inhalation DAILY 10/11/23 04/06/24 with inhalation device (Spiriva with HandiHaler) clindamycin HCl 300 mg capsule 300 mg PO TID 5 days #15 caps 04/06/24 Previous Rx's ?Medication ?Instructions ?Recorded atorvastatin 40 mg tablet (Lipitor) 40 mg PO DAILY ##0 03/28/15 aspirin 81 mg tablet,delayed 81 mg PO DAILY ##100 04/05/17 release clindamycin HCl 300 mg capsule 300 mg PO TID 5 days #15 caps 04/06/24 Allergies Allergy/AdvReac Type Severity Reaction Status Date / Time cephalexin AdvReac Intermediate genitourinary Verified 04/06/24 12:39 edema General Stated Complaint: Cellulitis MAURILIO: 3 Exam Narrative Exam Narrative: Alert interactive no acute distress Speaking full sentences tolerating secretions Area of shallowly denuded skin anterior medial lomax good granulation tissue some induration to skin mild erythema without crepitus fluctuance purulence lymphangitic streaking or maggots DP pulse intact full range of motion of lower extremities Course Vital Signs Vital signs: Vital Signs Temperature 36.4 C L 04/06/24 12:41 Pulse 72 04/06/24 12:41 Respiratory Rate 16 04/06/24 12:41 Blood Pressure 140/52 L 04/06/24 12:41 Pulse Oximetry 96 04/06/24 12:41 Temperature 36.4 C L 04/06/24 12:41 Temperature Source Temporal Artery Scan 04/06/24 12:41 Pulse 72 04/06/24 12:41 Respiratory Rate 16 04/06/24 12:41 Respiratory Effort Normal, Non-Labored 04/06/24 12:43 Blood Pressure 140/52 L 04/06/24 12:41 Blood Pressure Position Sitting 04/06/24 12:41 Pulse Oximetry 96 04/06/24 12:41 Oxygen Delivery Method Room Air 04/06/24 12:41 Oxygen Flow Rate 0 04/06/24 12:41 Pain Level 0 04/06/24 12:41 Medical Decision Making 83-year-old male history of diabetes referred in for evaluation of right lower extremity wound which has been covered for the last week, home health saw maggots on the wound, see examination for full detail of wound, appears well granulated shallow-based no purulence fluctuance or lymphangitic streaking no crepitus, full range of motion, afebrile nontoxic, likely spontaneously healing shallow skin ulceration related to chronic diabetes and peripheral vascular disease, DP pulse intact soft compartments low suspicion for vascular insult or neurologic insult, low suspicion for deep space infection must also consider early superficial cellulitis. Will start empiric clindamycin. Patient has close follow-up with podiatry next week. Home care instructions and return precautions given. 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) Cellulitis of leg, right (Acute) Chronic venous stasis dermatitis of both lower extremities (Acute) COPD (chronic obstructive pulmonary disease) (Chronic) DVT prophylaxis (Acute) Ulcer of right lower leg (Acute) Venous stasis (Acute) Venous stasis ulcer of ankle limited to breakdown of skin (Acute) Leg length discrepancy (Acute 02/09/18) Primary osteoarthritis of right knee (Acute 11/01/17) Mitral valve regurgitation (Chronic) CVA (cerebral vascular accident) (Chronic) CKD stage 3 due to type 2 diabetes mellitus (Acute) Diabetic neuropathy (Acute) ORVILLE positive (Acute) Onychomycosis (Acute) Medical History Kidney mass COVID Cutaneous abscess of abdominal wall Bradycardia Slurred speech Weakness Diabetic ulcer of right lower leg associated with diabetes mellitus due to underlying condition, with fat layer exposed Renal insufficiency Cirrhosis Cellulitis Hx TIA/stroke w/o resid SAMMI on CPAP HLD (hyperlipidemia) HTN (hypertension) Venous stasis ulcer right lateral calf Acute kidney injury (nontraumatic) Scalp hematoma Chest wall contusion Syncope Diabetes mellitus Community acquired pneumonia With hypoxia and bronchospasm. Surgical History History of surgery Debridement of right leg wound with Apligraf History of cholecystectomy H/O rectal sphincterotomy History of appendectomy History of total right hip arthroplasty Family History Other Neoplasm Stroke Social History Smoking/Tobacco Use Status: Former Tobacco Use Quit Date: 03/06/84 Smoking risk assessment performed?: Yes Alcohol Intake: never Drug use: Never Substance use type: does not use Housing: house Current gender identity: male Do you feel safe at home: Yes Do you feel safe in your relationship?: Yes
[2024-04-06] MEDS: Clindamycin 300 MG CAP PO (13:03)
== END 2024-04-06 13:09 | disposition home or self-care (01) ==
PROVIDERS: Emergency Provider Emergency Medicine; PCP Family Medicine
DX: E11.622 Type 2 diabetes mellitus with other skin ulcer (principal); E11.59 Type 2 diabetes mellitus with other circulatory complications
CPT/HCPCS: 99283

== ENCOUNTER → 2024-04-12 11:06 | Outpatient (BNVA) | payer MEDICARE, SELFPAY | PROVIDERS: PCP Family Medicine; Referring Provider Family Medicine; Visit Provider Podiatrist | DX: E11.621 Type 2 diabetes mellitus with foot ulcer; L97.919 Non-pressure chronic ulcer of unspecified part of right lower leg with unspecified severity; I83.11 Varicose veins of right lower extremity with inflammation; I83.12 Varicose veins of left lower extremity with inflammation; I87.8 Other specified disorders of veins; B35.1 Tinea unguium; E11.40 Type 2 diabetes mellitus with diabetic neuropathy, unspecified; E11.22 Type 2 diabetes mellitus with diabetic chronic kidney disease; N18.30 Chronic kidney disease, stage 3 unspecified | CPT/HCPCS: 29580; 29850 ==

== ENCOUNTER → 2024-04-27 10:28 | Outpatient (BNVA) | payer MEDICARE, SELFPAY | PROVIDERS: PCP Family Medicine; Referring Provider Family Medicine; Visit Provider Podiatrist | DX: E11.621 Type 2 diabetes mellitus with foot ulcer; L97.919 Non-pressure chronic ulcer of unspecified part of right lower leg with unspecified severity; I87.8 Other specified disorders of veins; B35.1 Tinea unguium; E11.40 Type 2 diabetes mellitus with diabetic neuropathy, unspecified; E11.22 Type 2 diabetes mellitus with diabetic chronic kidney disease; N18.30 Chronic kidney disease, stage 3 unspecified | CPT/HCPCS: 11055 ==

== ENCOUNTER 2024-07-18 01:42 | Outpatient (CLI) | payer MEDICARE, SELFPAY ==
--- NOTE | 2024-07-18 | DI.US_ITS ---
Exam(s) US ABDOMEN LIMITED EXAM: US ABDOMEN LIMITED CLINICAL HISTORY: cirrhosis of liver, K74.60 TECHNIQUE: Ultrasound abdomen performed using standard protocol. COMPARISON: US US ABDOMEN LIMITED from 08/20/2023 FINDINGS: LIVER: The liver echogenicity is extremely coarsened and the surface is nodular, consistent with cirr hosis. No focal liver lesions are seen.. GALLBLADDER: Status post cholecystectomy. BILIARY SYSTEM: No intrahepatic or extrahepatic biliary ductal dilation . RIGHT KIDNEY: Normal size. No evidence of renal calculi. No evidence of hydronephrosis. No suspicious renal mass. Small cyst upper pole. Lower poles obscured by shadowing bowel gas. PANCREAS: Normal where visualized. ABDOMINAL AORTA AND IVC: Visualized portions normal caliber. ASCITES: None seen. IMPRESSION: Cirrhotic appearing liver. No focal mass. DATA REPOSITORY:
== END 2024-07-18 02:02 ==
LOC: DI 01:42
PROVIDERS: PCP Family Medicine; Visit Provider Family Medicine
DX: K74.60 Unspecified cirrhosis of liver (principal)
CPT/HCPCS: 76705

== ENCOUNTER → 2024-08-24 10:23 | Outpatient (BNVA) | payer MEDICARE, SELFPAY | PROVIDERS: PCP Family Medicine; Referring Provider Family Medicine; Visit Provider Podiatrist | DX: L84 Corns and callosities; L60.3 Nail dystrophy; B35.1 Tinea unguium; I83.11 Varicose veins of right lower extremity with inflammation; I83.12 Varicose veins of left lower extremity with inflammation; I73.89 Other specified peripheral vascular diseases; E11.42 Type 2 diabetes mellitus with diabetic polyneuropathy; E11.22 Type 2 diabetes mellitus with diabetic chronic kidney disease; N18.30 Chronic kidney disease, stage 3 unspecified; L65.9 Nonscarring hair loss, unspecified; R60.0 Localized edema; R23.8 Other skin changes; L85.8 Other specified epidermal thickening; M79.671 Pain in right foot | CPT/HCPCS: 11055; 11721 ==

== ENCOUNTER 2024-09-21 12:38 | Emergency (ER) | payer MEDICARE, SELFPAY ==
[2024-09-21 12:49] VITALS: BP 186/83; PULSE 98; RESP 16; TEMP 36.6; O2SAT 98
--- NOTE | 2024-09-21 13:00 | DI.RAD_ITS ---
Exam(s) XR CHEST 2V PA LATERAL EXAM: XR CHEST 2V PA LATERAL CLINICAL HISTORY: cough TECHNIQUE: 2D digital imaging was performed. Two views. COMPARISON: CR,RF RF BARIUM SWALLOW from 01/29/[address] CHEST WO from 03/10/2021 FINDINGS: Exam limited by patient body habitus. The lung bases are under penetrated. HEART: Normal size. Aorta: Mildly ectatic and calcified PULMONARY VASCULATURE: Normal. MEDIASTINUM: Unremarkable. LUNGS: Clear. PLEURAL SPACE: No pleural effusion or pneumothorax. Chronic blunting at the left costophrenic angle . BONE:Unremarkable for age. SOFT TISSUES: Unremarkable. IMPRESSION: No acute abnormality. DATA REPOSITORY: RADIATION DOSE DELIVERED:
--- NOTE | 2024-09-21 13:10 | ED.GENADUL_ITS ---
Discharge Plan Disposition Patient Disposition: Home Condition: Stable Discharge Details Clinical Impression: Laryngitis Primary Care Provider: Soledad Slaughter ED Provider: Abhinav Lemon Home Meds and New Rx's Prescriptions: Continued insulin degludec [Tresiba FlexTouch U-100] 100 unit/mL (3 mL) insulin pen 35 unit subcut DAILY tiotropium bromide [Spiriva with HandiHaler] 18 mcg capsule, w/inhalation device 1 cap inhalation DAILY Rx Instructions: puncture 1 cap using device; one dose = 2 inhalations Ozempic 1 mg/dose (4 mg/3 mL) pen injector 1 mg subcut QWEEK furosemide 20 mg tablet 40 mg PO DAILY ferrous sulfate 325 mg (65 mg iron) tablet 325 mg PO DAILY cholecalciferol (vitamin D3) 50 mcg (2,000 unit) capsule 50 mcg PO DAILY Galzin 50 mg (zinc) capsule 50 mg PO DAILY liraglutide [Victoza 3-Khanh] 0.6 mg/0.1 mL (18 mg/3 mL) pen injector 1.2 mg subcut DAILY citalopram 20 MG tablet 10 mg PO DAILY Diabetic Shoe w Lift Qty: 1 0RF Rx Instructions: Please provide a diabetic shoes. On the left side, please accomodate for left leg length discrepancy, right longer than left. Recommend 1.5cm lift built into the left shoe. Diabetic Shoe w Lift 0RF atorvastatin [Lipitor] 40 MG tablet 40 mg PO DAILY Qty: 0 0RF Rx Instructions: discuss dose with Dr. Slaughter aspirin 81 MG tablet,delayed release (DR/EC) 81 mg PO DAILY Qty: 100 0RF metolazone 2.5 mg Tablet 2.5 mg PO .TWICE WEEKLY metformin 500 mg Tablet 1,000 mg PO BID cyanocobalamin (vitamin B-12) [Vitamin B-12] 1,000 mcg Tablet 1,000 mcg PO BID clopidogrel 75 mg Tablet 75 mg PO DAILY allopurinol 100 mg Tablet 100 mg PO DAILY fluticasone propion-salmeterol [Advair Diskus] 500-50 mcg/dose Blister With Device 1 inh INHALATION BID clonidine HCl 0.3 mg tablet 0.2 mg PO BID lisinopril 40 mg tablet 40 mg PO DAILY amlodipine 5 mg tablet 10 mg PO HS pantoprazole 40 mg tablet,delayed release (DR/EC) 40 mg PO DAILY AM PRN Discharge Instructions Instructions: Laryngitis ED Additional Instructions: You were seen in the emergency department for your laryngitis. Please perform salt water gargles with warm salt water 3 times per day, use tea with honey for symptomatic relief. Continue your NyQuil and DayQuil use. Please follow-up with ENT for hoarse voice lasting longer than 3 weeks. Please return to the emergency department for severe worsening of pain, inability to tolerate p.o. intake, excessive drooling, inability to open or close your jaw, neck pain or stiffness, high fevers, respiratory distress. There was no evidence of any pneumonia on your chest x-ray and your COVID/flu/RSV swab is negative Referrals: Soledad Slaughter MD [Primary Care Provider] - HPI General Date/Time Provider Initiated Documentation: 09/21/24 13:00 . HPI Narrative: 84 year-old male presents to ED today by POV/ambulating with a chief complaint of hoarse voice, mild cough/head cold with onset about 9 days ago. Quality described as generalized congestion, mild cough, denies shortness of breath, no radiation to trismus, neck pain/swelling, severe sore throat, endorses he lost his voice. Severity is described as moderate. Palliating factors include Nyquil and Dayquil with some relief. Provoking factors include nothing specific. Patient not anticoagulated. Related Data Home Medications ?Medication ?Instructions ?Recorded ?Confirmed citalopram 20 mg tablet 10 mg PO DAILY 12/02/12 09/21/24 atorvastatin 40 mg tablet (Lipitor) 40 mg PO DAILY ##0 03/28/15 09/21/24 aspirin 81 mg tablet,delayed 81 mg PO DAILY ##100 04/05/17 09/21/24 release allopurinol 100 mg tablet 100 mg PO DAILY 03/13/19 09/21/24 clopidogrel 75 mg tablet 75 mg PO DAILY 03/13/19 09/21/24 cyanocobalamin (vitamin B-12) 1,000 mcg PO BID 03/13/19 09/21/24 1,000 mcg tablet (Vitamin B-12) fluticasone 500 mcg-salmeterol 50 1 inh inhalation BID 03/13/19 09/21/24 mcg/dose blistr powdr for inhalation (Advair Diskus) metformin 500 mg tablet 1,000 mg PO BID 03/13/19 09/21/24 metolazone 2.5 mg tablet 2.5 mg PO .TWICE WEEKLY 03/13/19 09/21/24 lisinopril 40 mg tablet 40 mg PO DAILY 03/10/21 09/21/24 amlodipine 5 mg tablet 10 mg PO HS 02/13/22 09/21/24 cholecalciferol (vitamin D3) 50 50 mcg PO DAILY 02/13/22 09/21/24 mcg (2,000 unit) capsule ferrous sulfate 325 mg (65 mg 325 mg PO DAILY 02/13/22 09/21/24 iron) tablet furosemide 20 mg tablet 40 mg PO DAILY 02/13/22 09/21/24 zinc acetate 50 mg (zinc) capsule 50 mg PO DAILY 02/13/22 09/21/24 (Galzin) liraglutide 0.6 mg/0.1 mL (18 mg/3 1.2 mg subcut DAILY 04/27/23 09/21/24 mL) subcutaneous pen injector (Victoza 3-Khanh) insulin degludec 100 unit/mL (3 35 unit subcut DAILY 10/11/23 09/21/24 mL) subcutaneous pen (Tresiba FlexTouch U-100 insulin) pantoprazole 40 mg tablet,delayed 40 mg PO DAILY AM PRN 10/11/23 09/21/24 release semaglutide 1 mg/dose (4 mg/3 mL) 1 mg subcut QWEEK 10/11/23 09/21/24 subcutaneous pen injector (Ozempic) tiotropium bromide 18 mcg capsule 1 cap inhalation DAILY 10/11/23 09/21/24 with inhalation device (Spiriva with HandiHaler) clonidine HCl 0.3 mg tablet 0.2 mg PO BID 08/24/24 09/21/24 Previous Rx's ?Medication ?Instructions ?Recorded atorvastatin 40 mg tablet (Lipitor) 40 mg PO DAILY ##0 03/28/15 aspirin 81 mg tablet,delayed 81 mg PO DAILY ##100 04/05/17 release Allergies Allergy/AdvReac Type Severity Reaction Status Date / Time cephalexin AdvReac Intermediate genitourinary Verified 09/21/24 12:54 edema General Stated Complaint: RespSymp MAURILIO: 4 Review of Systems All systems reviewed & are unremarkable except as noted in HPI and below Exam Narrative Exam Narrative: GENERAL APPEARANCE: Well-nourished, non-toxic, awake and alert, atraumatic, no acute distress. SKIN: Warm, pink, dry, intact, without rashes/lesions/ulcerations. HEAD: Normocephalic, atraumatic, normal hair distribution for gender/age. EYES: Normal conjunctiva, no exudates on lids/lashes. ENT: Nares patent, no circumoral cyanosis, no facial swelling, benign posterior oropharynx, uvula midline, no tonsillar lymphadenopathy NECK: Supple, trachea midline, painless cervical ROM. LUNGS/CHEST: Lungs CTA bilaterally- no rhonchi/rales/wheezes diffusely, non- labored respirations, normal A/P diameter, symmetrical expansion, no chest wall deformity HEART (CV/PV): Regular rate and rhythm without murmur, no peripheral edema, no JVD. ABDOMEN: Soft, non-distended, no guarding. MSK: Normal ROM, no swelling/deformity to bilateral UEs or LEs, moving all extremities without weakness, no cyanosis, spine midline without tenderness, normal curvature. NEURO: Mental Status AAOx4 - alert to person, place, time, events No facial droop, no forehead involvement. Motor: No focal weakness - strength 5/5 in bilateral UEs and LEs, proximal and distal, symmetric. Sensory: sensation intact to light touch globally. Gait normal: patient ambulated without ataxia into ED room. PSYCH: euthymic, cooperative, pleasant, appropriate speech Course Vital Signs Vital signs: Vital Signs Temperature 36.6 C 09/21/24 12:49 Pulse 98 H 09/21/24 12:49 Respiratory Rate 16 09/21/24 12:49 Blood Pressure 186/83 H 09/21/24 12:49 Pulse Oximetry 98 09/21/24 12:49 Temperature 36.6 C 09/21/24 12:49 Temperature Source Oral 09/21/24 12:49 Pulse 98 H 09/21/24 12:49 Respiratory Rate 16 09/21/24 12:49 Respiratory Effort Short of Breath 09/21/24 13:03 Blood Pressure 186/83 H 09/21/24 12:49 Blood Pressure Position Sitting 09/21/24 12:49 Pulse Oximetry 98 09/21/24 12:49 Oxygen Delivery Method Room Air 09/21/24 12:49 Oxygen Flow Rate 0 01/16/25 12:49 Pain Level 0 09/21/24 12:49 Medical Decision Making This dictation utilizes [id number] dictation software and may contain unedited grammatical errors. 84 year-old male presents to ED today by POV/ambulating with a chief complaint of hoarse voice, mild cough/head cold with onset about 9 days ago. Quality described as generalized congestion, mild cough, denies shortness of breath, no radiation to trismus, neck pain/swelling, severe sore throat, endorses he lost his voice. Severity is described as moderate. Palliating factors include Nyquil and Dayquil with some relief. Provoking factors include nothing specific. Patients' medical history: Diabetes, renal insufficiency, history of cirrhosis, history of TIA, SAMMI, hypertension, COPD, history of CVA. Family and social history: Former tobacco use, former alcohol use. Pertinent exam findings / vital signs include lungs CTA, no wheezing, benign posterior oropharynx, hoarse voice, no trismus, no neck pain or swelling or tenderness. Differential / pathologies of concern include laryngitis, viral syndrome, pneumonia. Diagnostic studies of: -Respiratory panel PCR swab, x-ray chest. -PCR swab negative -X-ray chest clear Interventions of: -Counseled the patient that it may take up to 3 weeks for his voice to return - not recommending antibiotics, recommending tea with honey and salt water gargles. ED Course/Assessment/Plan: 84-year-old male presents with 9 days of laryngitis, is mild cough and head cold, negative for COVID flu and RSV, no signs of pneumonia on chest x-ray his vitals are completely normal, I did discuss with the patient that it may take up to 3 weeks for his illness to clear, he may need to follow-up with the ENT for hoarse voice lasting longer than 3 weeks with his COPD history. Counseled the patient on therapeutic dosing of Tylenol and ibuprofen and salt water gargles and tea with honey for symptomatic relief. Findings not consistent with airway compromise, respiratory distress. Disposition of laryngitis. Patient verbalized understanding of the plan and return to ED criteria and engaged in shared decision making. Medical Records Medical records reviewed: Yes I reviewed the patient's medical records. Imaging Data Radiologic Study: Attestation: I personally reviewed and interpreted this imaging study as follows: Imaging: X-Ray Radiologist's impression: EXAM: XR CHEST 2V PA LATERAL CLINICAL HISTORY: cough TECHNIQUE: 2D digital imaging was performed. Two views. COMPARISON: CR,RF RF BARIUM SWALLOW from 01/29/[address] CHEST WO from 03/10/2021 FINDINGS: Exam limited by patient body habitus. The lung bases are under penetrated. HEART: Normal size. Aorta: Mildly ectatic and calcified PULMONARY VASCULATURE: Normal. MEDIASTINUM: Unremarkable. LUNGS: Clear. PLEURAL SPACE: No pleural effusion or pneumothorax. Chronic blunting at the left costophrenic angle. BONE:Unremarkable for age. SOFT TISSUES: Unremarkable. IMPRESSION: No acute abnormality. 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) (Acute) Cellulitis of leg, right (Acute) Chronic venous stasis dermatitis of both lower extremities (Acute) COPD (chronic obstructive pulmonary disease) (Chronic) DVT prophylaxis (Acute) Ulcer of right lower leg (Acute) Venous stasis (Acute) Venous stasis ulcer of ankle limited to breakdown of skin (Acute) Leg length discrepancy (Acute 02/09/18) Primary osteoarthritis of right knee (Acute 11/01/17) Mitral valve regurgitation (Chronic) CVA (cerebral vascular accident) (Chronic) CKD stage 3 due to type 2 diabetes mellitus (Acute) Diabetic neuropathy (Acute) ORVILLE positive (Acute) Onychomycosis (Acute) Medical History Kidney mass COVID Cutaneous abscess of abdominal wall Bradycardia Slurred speech Weakness Diabetic ulcer of right lower leg associated with diabetes mellitus due to underlying condition, with fat layer exposed Renal insufficiency Cirrhosis Cellulitis Hx TIA/stroke w/o resid SAMMI on CPAP HLD (hyperlipidemia) HTN (hypertension) Venous stasis ulcer right lateral calf Acute kidney injury (nontraumatic) Scalp hematoma Chest wall contusion Syncope Diabetes mellitus Community acquired pneumonia With hypoxia and bronchospasm. Surgical History History of surgery Debridement of right leg wound with Apligraf History of cholecystectomy H/O rectal sphincterotomy History of appendectomy History of total right hip arthroplasty Family History Other Neoplasm Stroke Social History Smoking/Tobacco Use Status: Former Tobacco Use Quit Date: 03/06/84 Smoking risk assessment performed?: Yes Alcohol Intake: never Drug use: Never Substance use type: does not use Housing: house Current gender identity: male Do you feel safe at home: Yes Do you feel safe in your relationship?: Yes
[2024-09-21 14:03] LABS: COVID-19 PCR Negative (Negative); Influenza A PCR Negative (Negative); Influenza B PCR Negative (Negative); RSV PCR Negative (Negative)
[2024-09-21 14:04] LABS: Source Nasopharynx
== END 2024-09-21 14:49 | disposition home or self-care (01) ==
PROVIDERS: Emergency Provider Physician Assistant; PCP Family Medicine
DX: J04.0 Acute laryngitis (principal); E78.5 Hyperlipidemia, unspecified; E11.22 Type 2 diabetes mellitus with diabetic chronic kidney disease; I12.9 Hypertensive chronic kidney disease with stage 1 through stage 4 chronic kidney disease, or unspecified chronic kidney disease; N18.30 Chronic kidney disease, stage 3 unspecified; J44.9 Chronic obstructive pulmonary disease, unspecified; C18.9 Malignant neoplasm of colon, unspecified; Z79.02 Long term (current) use of antithrombotics/antiplatelets; Z79.82 Long term (current) use of aspirin; Z79.4 Long term (current) use of insulin; Z79.84 Long term (current) use of oral hypoglycemic drugs; Z79.85 Long-term (current) use of injectable non-insulin antidiabetic drugs; Z87.891 Personal history of nicotine dependence
CPT/HCPCS: 87637; 99284; 71046

== ENCOUNTER 2024-12-13 13:10 | Outpatient (CLI) | payer MEDICARE, SELFPAY ==
[2024-12-13 13:27] LABS: Abs Immature Grans 0.02 10^3/uL (0.0-0.06); Absolute Basophil Count 0.03 10^3/uL (0.0-0.2); Absolute Eosinophil Count 0.06 10^3/uL (0.0-0.7); Absolute Lymphocyte Count 0.74 10^3/uL (1.2-3.4); Absolute Monocyte Count 0.39 10^3/uL (0.1-0.8); Basophils % 0.5 %; HCT 33.3 % (40.0-50.0); HGB 10.1 g/dL (13.5-17.5); Immature Grans % 0.3 %; Lymphocytes % 12.1 %; MCH 26.6 pg (27.0-33.0); MCHC 30.3 % (32.0-36.0); MCV 88 fL (80-95); MPV 9.8 fL (8.0-11.0); Monocytes % 6.4 %; Neutrophils % 79.7 %; Platelet Count 229 10^3/uL (130-400); RBC 3.79 10^6/uL (4.36-5.78); RDW 16.3 % (11.8-14.1); RDW-SD 51.3 fL; WBC 6.14 10^3/uL (4.4-10.8)
[2024-12-13 13:51] LABS: ALT 27 U/L (16-63); AST 22 U/L (15-37); Albumin 2.7 g/dL (3.4-5.0); Alkaline Phosphatase 152 U/L (46-116); Anion Gap 5.3 mmol/L (3-11); BUN 28 mg/dL (7-18); Bilirubin, Total 0.3 mg/dL (0.2-1.0); CO2 27.7 mmol/L (21.0-32.0); CREATININE 1.4 mg/dL (0.70-1.30); Calcium 9.1 mg/dL (8.5-10.1); Chloride 108 mmol/L (98-107); Estimated GFR 49.56 (mL/min/1.73m2); Glucose 93 mg/dL (74-106); Potassium 4.6 mmol/L (3.5-5.1); Sodium 141 mmol/L (136-145); Total Protein 6.5 g/dL (6.4-8.2)
== END 2024-12-13 13:11 | disposition home or self-care (01) ==
LOC: LBO 13:11
PROVIDERS: PCP Family Medicine; Visit Provider Internal Medicine Hematology & Oncology
DX: C20 Malignant neoplasm of rectum (principal)
CPT/HCPCS: 36415; 80053; 85025

== ENCOUNTER 2024-12-18 03:15 | Outpatient (CLI) | payer MEDICARE, SELFPAY ==
[2024-12-18 11:27] LABS: Abs Immature Grans 0.06 10^3/uL (0.0-0.06); Absolute Basophil Count 0.05 10^3/uL (0.0-0.2); Absolute Eosinophil Count 0.07 10^3/uL (0.0-0.7); Absolute Lymphocyte Count 0.73 10^3/uL (1.2-3.4); Absolute Monocyte Count 0.52 10^3/uL (0.1-0.8); Absolute Neutrophil Count 7.98 10^3/uL (1.2-6.7); Basophils % 0.5 %; Eosinophils % 0.7 %; HCT 36.4 % (40.0-50.0); HGB 10.8 g/dL (13.5-17.5); Immature Grans % 0.6 %; Lymphocytes % 7.8 %; MCH 26.7 pg (27.0-33.0); MCHC 29.7 % (32.0-36.0); MCV 90 fL (80-95); MPV 9.2 fL (8.0-11.0); Monocytes % 5.5 %; Neutrophils % 84.9 %; Platelet Count 270 10^3/uL (130-400); RBC 4.05 10^6/uL (4.36-5.78); RDW 17.2 % (11.8-14.1); RDW-SD 52.9 fL; WBC 9.41 10^3/uL (4.4-10.8)
[2024-12-18 12:03] LABS: ALT 25 U/L (16-63); AST 22 U/L (15-37); Albumin 2.8 g/dL (3.4-5.0); Alkaline Phosphatase 141 U/L (46-116); Anion Gap 10.1 mmol/L (3-11); BUN 35 mg/dL (7-18); Bilirubin, Total 0.5 mg/dL (0.2-1.0); CO2 24.9 mmol/L (21.0-32.0); CREATININE 1.8 mg/dL (0.70-1.30); Calcium 8.9 mg/dL (8.5-10.1); Chloride 110 mmol/L (98-107); Estimated GFR 36.66 (mL/min/1.73m2); Glucose 119 mg/dL (74-106); Sodium 145 mmol/L (136-145); Total Protein 6.6 g/dL (6.4-8.2)
== END 2024-12-18 03:16 | disposition home or self-care (01) ==
PROVIDERS: PCP Family Medicine; Visit Provider Internal Medicine Hematology & Oncology
DX: C20 Malignant neoplasm of rectum (principal)
CPT/HCPCS: 36415; 80053; 85025

== ENCOUNTER 2024-12-22 18:05 | Outpatient (REF) | payer MEDICARE, SELFPAY ==
--- NOTE | 2024-12-22 08:45 | SKI_PTH ---
PATIENT: Dionna Iniguez LOC: [facility] U#:[id number] AGE/SX: 84/M ROOM: RE12/22/[address]: Vicente Cloud DO : 1940 BED: DIS: 12/22/2024 SPEC #: [id number] RECD: 12/22/24 18:09 STATUS: VALDEZ REQ #: [id number] ROMERO: 12/22/24 08:[address]: Vicente Cloud DEPT: Surgical Specimen RECD BY: Tamika Ellis ENTERED: 12/22/24 18:09 SP TYPE: MIKE BAINS DR: Soledad Slaughter Tissues: 1 - SKIN BIOPSY(SHAVE/PUNCH) 2 - SKIN BIOPSY(SHAVE/PUNCH) 3 - SKIN BIOPSY(SHAVE/PUNCH) Procedures: SKIN LEVEL 4 Comments: [id number]
== END 2024-12-22 18:06 | disposition home or self-care (01) ==
LOC: LBN 18:05
PROVIDERS: PCP Family Medicine; Visit Provider Otolaryngology Otolaryngology/Facial Plastic Surgery
DX: L82.1 Other seborrheic keratosis (principal)
CPT/HCPCS: 88305

== ENCOUNTER 2024-12-27 03:19 | Outpatient (CLI) | payer MEDICARE, SELFPAY ==
[2024-12-27 12:27] LABS: Abs Immature Grans 0.06 10^3/uL (0.0-0.06); Absolute Basophil Count 0.03 10^3/uL (0.0-0.2); Absolute Lymphocyte Count 0.54 10^3/uL (1.2-3.4); Absolute Monocyte Count 0.62 10^3/uL (0.1-0.8); Absolute Neutrophil Count 6.56 10^3/uL (1.2-6.7); Basophils % 0.4 %; Eosinophils % 2.5 %; HCT 34.8 % (40.0-50.0); HGB 10.9 g/dL (13.5-17.5); Immature Grans % 0.7 %; Lymphocytes % 6.7 %; MCH 27.7 pg (27.0-33.0); MCHC 31.3 % (32.0-36.0); MCV 88 fL (80-95); MPV 9.4 fL (8.0-11.0); Monocytes % 7.7 %; Platelet Count 185 10^3/uL (130-400); RBC 3.94 10^6/uL (4.36-5.78); RDW 18.6 % (11.8-14.1); RDW-SD 53.9 fL; WBC 8.01 10^3/uL (4.4-10.8)
[2024-12-27 12:52] LABS: ALT 23 U/L (16-63); AST 21 U/L (15-37); Albumin 2.8 g/dL (3.4-5.0); Alkaline Phosphatase 129 U/L (46-116); Anion Gap 6.5 mmol/L (3-11); BUN 27 mg/dL (7-18); Bilirubin, Total 0.4 mg/dL (0.2-1.0); CO2 28.5 mmol/L (21.0-32.0); CREATININE 1.6 mg/dL (0.70-1.30); Calcium 8.9 mg/dL (8.5-10.1); Chloride 107 mmol/L (98-107); Estimated GFR 42.22 (mL/min/1.73m2); Glucose 99 mg/dL (74-106); Potassium 4.4 mmol/L (3.5-5.1); Sodium 142 mmol/L (136-145); Total Protein 6.2 g/dL (6.4-8.2)
== END 2024-12-27 03:20 | disposition home or self-care (01) ==
LOC: LBO 03:19
PROVIDERS: PCP Family Medicine; Visit Provider Internal Medicine Hematology & Oncology
DX: C20 Malignant neoplasm of rectum (principal)
CPT/HCPCS: 36415; 80053; 85025

== ENCOUNTER → 2024-12-28 10:05 | Outpatient (BNVA) | payer MEDICARE, SELFPAY | PROVIDERS: PCP Family Medicine; Referring Provider Family Medicine; Visit Provider Podiatrist | DX: E11.621 Type 2 diabetes mellitus with foot ulcer (principal); E11.22 Type 2 diabetes mellitus with diabetic chronic kidney disease; N18.30 Chronic kidney disease, stage 3 unspecified; I83.11 Varicose veins of right lower extremity with inflammation; I83.12 Varicose veins of left lower extremity with inflammation; L97.919 Non-pressure chronic ulcer of unspecified part of right lower leg with unspecified severity; L60.3 Nail dystrophy; B35.1 Tinea unguium; E11.40 Type 2 diabetes mellitus with diabetic neuropathy, unspecified; I87.8 Other specified disorders of veins; L84 Corns and callosities; M79.671 Pain in right foot; L85.8 Other specified epidermal thickening; L65.9 Nonscarring hair loss, unspecified; R09.89 Other specified symptoms and signs involving the circulatory and respiratory systems; R60.0 Localized edema; L60.8 Other nail disorders; L60.2 Onychogryphosis; R23.8 Other skin changes | CPT/HCPCS: 11055; 11721 ==

== ENCOUNTER 2025-01-03 01:38 | Outpatient (CLI) | payer MEDICARE, SELFPAY ==
[2025-01-03 09:35] LABS: Abs Immature Grans 0.04 10^3/uL (0.0-0.06); Absolute Basophil Count 0.02 10^3/uL (0.0-0.2); Absolute Eosinophil Count 0.17 10^3/uL (0.0-0.7); Absolute Lymphocyte Count 0.33 10^3/uL (1.2-3.4); Absolute Monocyte Count 0.56 10^3/uL (0.1-0.8); Absolute Neutrophil Count 5.53 10^3/uL (1.2-6.7); Basophils % 0.3 %; Eosinophils % 2.6 %; HCT 33.8 % (40.0-50.0); HGB 10.2 g/dL (13.5-17.5); Immature Grans % 0.6 %; MCH 27.4 pg (27.0-33.0); MCHC 30.2 % (32.0-36.0); MCV 91 fL (80-95); MPV 9.5 fL (8.0-11.0); Monocytes % 8.4 %; Neutrophils % 83.1 %; Platelet Count 171 10^3/uL (130-400); RBC 3.72 10^6/uL (4.36-5.78); RDW 19.2 % (11.8-14.1); RDW-SD 57.9 fL; WBC 6.65 10^3/uL (4.4-10.8)
[2025-01-03 10:13] LABS: ALT 25 U/L (16-63); AST 22 U/L (15-37); Albumin 2.7 g/dL (3.4-5.0); Alkaline Phosphatase 125 U/L (46-116); Anion Gap 8.7 mmol/L (3-11); BUN 25 mg/dL (7-18); Bilirubin, Total 0.4 mg/dL (0.2-1.0); CO2 27.3 mmol/L (21.0-32.0); CREATININE 1.4 mg/dL (0.70-1.30); Calcium 8.6 mg/dL (8.5-10.1); Chloride 106 mmol/L (98-107); Estimated GFR 49.56 (mL/min/1.73m2); Glucose 130 mg/dL (74-106); Potassium 4.3 mmol/L (3.5-5.1); Sodium 142 mmol/L (136-145); Total Protein 6.2 g/dL (6.4-8.2)
== END 2025-01-03 01:39 | disposition home or self-care (01) ==
LOC: LBO 01:38
PROVIDERS: PCP Family Medicine; Visit Provider Internal Medicine Hematology & Oncology
DX: C20 Malignant neoplasm of rectum (principal)
CPT/HCPCS: 36415; 80053; 85025

== ENCOUNTER 2025-01-10 01:47 | Outpatient (CLI) | payer MEDICARE, SELFPAY ==
[2025-01-10 09:47] LABS: Abs Immature Grans 0.05 10^3/uL (0.0-0.06); Absolute Basophil Count 0.02 10^3/uL (0.0-0.2); Absolute Monocyte Count 0.48 10^3/uL (0.1-0.8); Absolute Neutrophil Count 4.37 10^3/uL (1.2-6.7); Basophils % 0.4 %; Eosinophils % 5.4 %; HCT 32.1 % (40.0-50.0); HGB 10.2 g/dL (13.5-17.5); Immature Grans % 0.9 %; Lymphocytes % 5.4 %; MCH 28.3 pg (27.0-33.0); MCHC 31.8 % (32.0-36.0); MCV 89 fL (80-95); MPV 9.2 fL (8.0-11.0); Monocytes % 8.7 %; Neutrophils % 79.2 %; Platelet Count 165 10^3/uL (130-400); RDW 20.4 % (11.8-14.1); RDW-SD 61.9 fL; WBC 5.52 10^3/uL (4.4-10.8)
[2025-01-10 10:09] LABS: ALT 20 U/L (16-63); AST 22 U/L (15-37); Albumin 2.7 g/dL (3.4-5.0); Alkaline Phosphatase 130 U/L (46-116); Anion Gap 10.1 mmol/L (3-11); BUN 22 mg/dL (7-18); Bilirubin, Total 0.4 mg/dL (0.2-1.0); CO2 24.9 mmol/L (21.0-32.0); CREATININE 1.4 mg/dL (0.70-1.30); Calcium 8.7 mg/dL (8.5-10.1); Chloride 108 mmol/L (98-107); Estimated GFR 49.56 (mL/min/1.73m2); Glucose 119 mg/dL (74-106); Potassium 4.2 mmol/L (3.5-5.1); Sodium 143 mmol/L (136-145)
[2025-01-10 10:19] LABS: Anisocytosis 1+
== END 2025-01-10 01:48 | disposition home or self-care (01) ==
LOC: LBO 01:47
PROVIDERS: PCP Family Medicine; Visit Provider Internal Medicine Hematology & Oncology
DX: C20 Malignant neoplasm of rectum (principal)
CPT/HCPCS: 36415; 80053; 85025

== ENCOUNTER 2025-03-07 02:14 | Outpatient (CLI) | payer MEDICARE, SELFPAY ==
--- NOTE | 2025-03-07 | DI.CT_ITS ---
Exam(s) CT CHEST/ABD/PEL W EXAM: CT CHEST/ABD/PEL W CLINICAL HISTORY: RECTAL CA,C20,S/P CHEMO/RT,RESTAGING. TECHNIQUE: Imaging Protocol: Axial computed tomography images with coronal and sagittal reformatted images were created and reviewed. Computer aided detection (CAD) was utilized. CONTRAST MATERIAL: Intravenous: Omnipaque 350 Contrast volume:100 ml Oral: yes / COMPARISON: CT CT CHEST WO from 03/10/[address] ABD/PELVIS WO CONTRAST from 09/19/[address] CHEST WO CONTRAST from 09/19/2024 FINDINGS: CHEST: Pulmonary parenchyma: No consolidation. Stable nodules in the left lower lobe. Stable tiny nodules in the left upper lobe. Areas of bilateral scarring. No infiltrates. Tracheobronchial tree: No bronchiectasis. No mucous plugging.No bronchial wall thickening. Pleura: No effusion or pneumothorax. Mediastinum: Within normal limits. Pulmonary arteries: No visible emboli. Cardiovascular: The heart is mildly dilated.. Coronary artery calcifications are visible. No pericardial effusion. Thoracic aorta non-dilated. Bones: The bones appear to be demineralized. There are flowing syndesmophytes and mild dextroscoliosis peer no lytic or blastic lesions.No compression fractures. Soft tissues: Unremarkable. ABDOMEN and PELVIS: A portion of the right-sided abdomen is not included in the field of view. Small portion of the ascending colon is not visualized. Liver: Nodular contour to the liver consistent with cirrhosis. No suspicious mass. Gallbladder and biliary tract: Cholecystectomy. No biliary dilatation. Pancreas: Normal density, no abnormal calcifications or inflammatory process. Spleen: Normal. Kidneys: Normal size, contour and axis. Tiny nonobstructing stones in the right kidney. No obstructive uropathy. Multiple small cysts. No suspicious masses seen. Adrenal glands: No masses seen. Aorta: Abdominal portion non-dilated. Lymph nodes: Within normal limits. Soft tissues: Unremarkable. Bladder: Nearly empty. Not well evaluated. Bowel: Small diverticulum of the 3rd portion of the duodenum. No obstruction or bowel wall thickening. Scattered diverticulosis. The distal sigmoid and rectum are mainly free of stool. Moderate to increased quantity of stool seen elsewhere. No mass is visible. Peritoneal cavity: No ascites. No focal collection. No mesenteric inflammatory response. No free air. Bones: Bones are demineralized. There are flowing syndesmophytes. No compression fractures. Right hip prosthesis. No suspicious lytic or blastic lesions are visible. Reproductive organs: Unremarkable for age. IMPRESSION: Stable small left lung nodules. No new findings. No evidence of metastatic disease in the abdomen or pelvis. No colonic mass is visible. Cirrhotic appearing liver. RADIATION DOSE DELIVERED: 1,895.29mGy.cm Total DLP DATA REPOSITORY: All CT scans at this facility are submitted to the National Radiology Data Registry (NRDR) Dose Index Registry (DIR) with the [employer] (A[employer]). RADIATION OPTIMIZATION: All CT scans at this facility use at least one of these dose optimization techniques: automated exposure control; mA and/or kV adjustment per patient size (includes targeted exams where dose is matched to clinical indication); or iterative reconstruction.
[2025-03-07 11:28] LABS: Abs Immature Grans 0.02 10^3/uL (0.0-0.06); HCT 35.0 % (40.0-50.0); HGB 11.0 g/dL (13.5-17.5); Immature Grans % 0.3 %; MCH 28.4 pg (27.0-33.0); MCHC 31.4 % (32.0-36.0); MCV 90 fL (80-95); MPV 9.8 fL (8.0-11.0); Platelet Count 168 10^3/uL (130-400); RBC 3.87 10^6/uL (4.36-5.78); RDW 17.3 % (11.8-14.1); RDW-SD 57.4 fL; WBC 5.82 10^3/uL (4.4-10.8)
[2025-03-07 11:51] LABS: ALT 25 U/L (16-63); AST 16 U/L (15-37); Albumin 2.7 g/dL (3.4-5.0); Alkaline Phosphatase 161 U/L (46-116); Anion Gap 4.4 mmol/L (3-11); BUN 22 mg/dL (7-18); Bilirubin, Total 0.6 mg/dL (0.2-1.0); CO2 28.6 mmol/L (21.0-32.0); Calcium 8.7 mg/dL (8.5-10.1); Chloride 106 mmol/L (98-107); Estimated GFR 66.19 (mL/min/1.73m2); Glucose 101 mg/dL (74-106); Potassium 4.3 mmol/L (3.5-5.1); Sodium 139 mmol/L (136-145); Total Protein 6.3 g/dL (6.4-8.2)
[2025-03-07] MEDS: Barium Sulfate 2% W/V-Creamy Vanilla Smoothie 450 ML BTL PO (14:12)
[2025-03-07] MEDS: Barium Sulfate 2% W/V-Berry Smoothie 450 ML BTL PO (14:13)
[2025-03-07] MEDS: Normal Saline - Diluent 50 ML VIAL IJ (14:23)
[2025-03-07] MEDS: Omnipaque 350 MG/ML 500 ML BTL-Imaging package IJ (14:29)
[2025-03-07 18:59] LABS: CEA 2.5 ng/mL (See Note)
== END 2025-03-07 02:34 ==
LOC: DI 02:14
PROVIDERS: Nurse Practitioner Family; PCP Family Medicine; Visit Provider Internal Medicine Hematology & Oncology
DX: C20 Malignant neoplasm of rectum (principal)
CPT/HCPCS: 74177; 80053; 71260; 82378; 85025

== ENCOUNTER 2025-03-31 00:09 | Outpatient (RCR) | payer MEDICARE, SELFPAY ==
[2025-03-15 10:13] LABS: Abs Immature Grans 0.04 10^3/uL (0.0-0.06); HCT 36.1 % (40.0-50.0); HGB 11.2 g/dL (13.5-17.5); Immature Grans % 0.7 %; MCH 28.1 pg (27.0-33.0); MCHC 31.0 % (32.0-36.0); MCV 91 fL (80-95); MPV 9.9 fL (8.0-11.0); Platelet Count 187 10^3/uL (130-400); RBC 3.98 10^6/uL (4.36-5.78); RDW 16.8 % (11.8-14.1); RDW-SD 56.3 fL; WBC 5.90 10^3/uL (4.4-10.8)
[2025-03-15 10:39] LABS: ALT 24 U/L (16-63); AST 21 U/L (15-37); Albumin 2.8 g/dL (3.4-5.0); Alkaline Phosphatase 168 U/L (46-116); Anion Gap 7.1 mmol/L (3-11); BUN 24 mg/dL (7-18); Bilirubin, Total 0.3 mg/dL (0.2-1.0); CO2 27.9 mmol/L (21.0-32.0); Calcium 8.7 mg/dL (8.5-10.1); Chloride 106 mmol/L (98-107); Estimated GFR 54.17 (mL/min/1.73m2); Glucose 143 mg/dL (74-106); Potassium 4.5 mmol/L (3.5-5.1); Sodium 141 mmol/L (136-145); Total Protein 6.6 g/dL (6.4-8.2)
[2025-03-15] MEDS: Normal Saline Flush 10 ML SYR IVP (11:21)
[2025-03-15 18:44] LABS: CEA 2.9 ng/mL (See Note)
[2025-03-17 11:22] VITALS: BP 109/55; PULSE 70; RESP 18; TEMP 36.6; O2SAT 97
[2025-03-29 07:38] LABS: Abs Immature Grans 0.04 10^3/uL (0.0-0.06); HCT 34.0 % (40.0-50.0); HGB 10.5 g/dL (13.5-17.5); Immature Grans % 0.6 %; MCH 27.9 pg (27.0-33.0); MCHC 30.9 % (32.0-36.0); MCV 90 fL (80-95); MPV 10.2 fL (8.0-11.0); Platelet Count 143 10^3/uL (130-400); RBC 3.76 10^6/uL (4.36-5.78); RDW 16.2 % (11.8-14.1); RDW-SD 53.1 fL; WBC 6.74 10^3/uL (4.4-10.8)
[2025-03-29] MEDS: Normal Saline Flush 10 ML SYR IVP (07:45)
[2025-03-29 07:55] LABS: ALT 27 U/L (16-63); AST 17 U/L (15-37); Albumin 2.6 g/dL (3.4-5.0); Alkaline Phosphatase 151 U/L (46-116); Anion Gap 5.7 mmol/L (3-11); BUN 23 mg/dL (7-18); Bilirubin, Total 0.4 mg/dL (0.2-1.0); CO2 30.3 mmol/L (21.0-32.0); Calcium 8.6 mg/dL (8.5-10.1); Chloride 106 mmol/L (98-107); Estimated GFR 49.56 (mL/min/1.73m2); Glucose 190 mg/dL (74-106); Potassium 4.2 mmol/L (3.5-5.1); Sodium 142 mmol/L (136-145); Total Protein 5.9 g/dL (6.4-8.2)
[2025-03-29 19:23] LABS: CEA 2.8 ng/mL (See Note)
[2025-03-31 12:23] VITALS: BP 132/84; PULSE 81; RESP 16; TEMP 36.2; O2SAT 97
[2025-03-31] MEDS: Normal Saline Flush 10 ML SYR IVP (12:27)
== END 2025-04-05 23:59 | disposition home or self-care (01) ==
LOC: INF 00:09
PROVIDERS: Nurse Practitioner Family; PCP Family Medicine; Visit Provider Internal Medicine Hematology & Oncology
DX: C20 Malignant neoplasm of rectum (principal); Z45.2 Encounter for adjustment and management of vascular access device
CPT/HCPCS: 36591; 80053; 96523; 82378; 85025

== ENCOUNTER 2025-04-12 11:25 | Outpatient (REF) | payer MEDICARE, SELFPAY ==
[2025-04-12 11:46] LABS: ALT 49 U/L (16-63); AST 45 U/L (15-37); Albumin 2.7 g/dL (3.4-5.0); Alkaline Phosphatase 186 U/L (46-116); Anion Gap 5.9 mmol/L (3-11); BUN 24 mg/dL (7-18); Bilirubin, Total 0.5 mg/dL (0.2-1.0); CO2 30.1 mmol/L (21.0-32.0); Calcium 8.5 mg/dL (8.5-10.1); Chloride 107 mmol/L (98-107); Estimated GFR 49.56 (mL/min/1.73m2); Glucose 173 mg/dL (74-106); Potassium 3.8 mmol/L (3.5-5.1); Sodium 143 mmol/L (136-145); Total Protein 6.1 g/dL (6.4-8.2)
== END 2025-04-12 11:26 | disposition home or self-care (01) ==
LOC: LBN 11:25
PROVIDERS: PCP Family Medicine; Visit Provider Internal Medicine Hematology & Oncology
DX: C20 Malignant neoplasm of rectum (principal)
CPT/HCPCS: 80053

== ENCOUNTER 2025-04-28 00:18 | Outpatient (RCR) | payer MEDICARE, SELFPAY ==
[2025-04-12] MEDS: Normal Saline Flush 10 ML SYR IVP (09:38)
[2025-04-12 09:41] LABS: Abs Immature Grans 0.04 10^3/uL (0.0-0.06); HCT 34.7 % (40.0-50.0); HGB 10.8 g/dL (13.5-17.5); Immature Grans % 0.7 %; MCH 28.0 pg (27.0-33.0); MCHC 31.1 % (32.0-36.0); MCV 90 fL (80-95); MPV 10.4 fL (8.0-11.0); Platelet Count 103 10^3/uL (130-400); RBC 3.86 10^6/uL (4.36-5.78); RDW 16.1 % (11.8-14.1); RDW-SD 52.2 fL; WBC 5.58 10^3/uL (4.4-10.8)
[2025-04-12 10:23] LABS: ALT 33 U/L (16-63); AST 33 U/L (15-37); Albumin 1.9 g/dL (3.4-5.0); Alkaline Phosphatase 136 U/L (46-116); Anion Gap 9.7 mmol/L (3-11); BUN 18 mg/dL (7-18); Bilirubin, Total 0.5 mg/dL (0.2-1.0); CO2 22.3 mmol/L (21.0-32.0); Chloride 116 mmol/L (98-107); Estimated GFR 66.19 (mL/min/1.73m2); Glucose 138 mg/dL (74-106); Sodium 148 mmol/L (136-145); Total Protein 4.4 g/dL (6.4-8.2)
[2025-04-12 10:28] LABS: Calcium 6.1 mg/dL (8.5-10.1); Potassium 2.6 mmol/L (3.5-5.1)
[2025-04-12 19:20] LABS: CEA 1.2 ng/mL (See Note)
[2025-04-26 08:33] LABS: Abs Immature Grans 0.02 10^3/uL (0.0-0.06); HCT 34.0 % (40.0-50.0); HGB 10.6 g/dL (13.5-17.5); Immature Grans % 0.4 %; MCH 28.1 pg (27.0-33.0); MCHC 31.2 % (32.0-36.0); MCV 90 fL (80-95); MPV 10.0 fL (8.0-11.0); Platelet Count 100 10^3/uL (130-400); RBC 3.77 10^6/uL (4.36-5.78); RDW 16.5 % (11.8-14.1); RDW-SD 53.2 fL; WBC 4.55 10^3/uL (4.4-10.8)
[2025-04-26 09:22] LABS: ALT 88 U/L (16-63); AST 112 U/L (15-37); Albumin 2.6 g/dL (3.4-5.0); Alkaline Phosphatase 199 U/L (46-116); Anion Gap 6.6 mmol/L (3-11); BUN 19 mg/dL (7-18); Bilirubin, Total 0.5 mg/dL (0.2-1.0); CO2 29.4 mmol/L (21.0-32.0); Calcium 8.9 mg/dL (8.5-10.1); Chloride 107 mmol/L (98-107); Estimated GFR 66.19 (mL/min/1.73m2); Glucose 134 mg/dL (74-106); Potassium 4.3 mmol/L (3.5-5.1); Sodium 143 mmol/L (136-145); Total Protein 6.2 g/dL (6.4-8.2)
[2025-04-26 18:14] LABS: CEA 4.0 ng/mL (See Note)
[2025-04-28] MEDS: Normal Saline Flush 10 ML SYR IVP (10:20)
== END 2025-05-06 23:59 | disposition home or self-care (01) ==
LOC: INF 00:18
PROVIDERS: PCP Family Medicine; Visit Provider Internal Medicine Hematology & Oncology
DX: C20 Malignant neoplasm of rectum (principal); Z45.2 Encounter for adjustment and management of vascular access device
CPT/HCPCS: 36591; 80053; 96523; 82378; 85025

== ENCOUNTER 2025-05-10 14:07 | Outpatient (REF) | payer MEDICARE, SELFPAY ==
[2025-05-10 10:05] LABS: Abs Immature Grans 0.05 10^3/uL (0.0-0.06); HCT 32.6 % (40.0-50.0); HGB 10.2 g/dL (13.5-17.5); Immature Grans % 0.9 %; MCH 27.6 pg (27.0-33.0); MCHC 31.3 % (32.0-36.0); MCV 88 fL (80-95); MPV 10.1 fL (8.0-11.0); RBC 3.69 10^6/uL (4.36-5.78); RDW 17.5 % (11.8-14.1); RDW-SD 54.4 fL; WBC 5.69 10^3/uL (4.4-10.8)
[2025-05-10 10:18] LABS: Platelet Count 98 10^3/uL (130-400); RBC Morphology Normal
[2025-05-10 10:20] LABS: ALT 40 U/L (16-63); AST 42 U/L (15-37); Albumin 2.6 g/dL (3.4-5.0); Alkaline Phosphatase 193 U/L (46-116); Anion Gap 8.2 mmol/L (3-11); BUN 21 mg/dL (7-18); Bilirubin, Total 0.5 mg/dL (0.2-1.0); CO2 25.8 mmol/L (21.0-32.0); Chloride 108 mmol/L (98-107); Estimated GFR 49.56 (mL/min/1.73m2); Glucose 194 mg/dL (74-106); Sodium 142 mmol/L (136-145); Total Protein 6.1 g/dL (6.4-8.2)
[2025-05-10 10:21] LABS: Calcium 8.2 mg/dL (8.5-10.1); Potassium 3.6 mmol/L (3.5-5.1)
== END 2025-05-10 14:08 | disposition home or self-care (01) ==
LOC: LBN 14:07
PROVIDERS: PCP Family Medicine; Visit Provider Internal Medicine Hematology & Oncology
DX: C20 Malignant neoplasm of rectum (principal)
CPT/HCPCS: 80053; 85025

== ENCOUNTER 2025-05-26 00:07 | Outpatient (RCR) | payer MEDICARE, SELFPAY ==
[2025-05-10] MEDS: Normal Saline Flush 10 ML SYR IVP (08:10)
[2025-05-10 18:12] LABS: CEA 2.6 ng/mL (See Note)
[2025-05-12 12:18] VITALS: BP 97/63; PULSE 72; RESP 16; TEMP 36; O2SAT 100
[2025-05-24] MEDS: Normal Saline Flush 10 ML SYR IVP (08:50)
[2025-05-24 09:07] LABS: Abs Immature Grans 0.06 10^3/uL (0.0-0.06); HCT 35.1 % (40.0-50.0); HGB 11.1 g/dL (13.5-17.5); Immature Grans % 1.3 %; MCH 28.2 pg (27.0-33.0); MCHC 31.6 % (32.0-36.0); MCV 89 fL (80-95); MPV 10.2 fL (8.0-11.0); Platelet Count 113 10^3/uL (130-400); RBC 3.94 10^6/uL (4.36-5.78); RDW 19.0 % (11.8-14.1); RDW-SD 59.7 fL; WBC 4.75 10^3/uL (4.4-10.8)
[2025-05-24 09:28] LABS: ALT 36 U/L (16-63); AST 39 U/L (15-37); Albumin 2.5 g/dL (3.4-5.0); Alkaline Phosphatase 173 U/L (46-116); Anion Gap 7.9 mmol/L (3-11); BUN 15 mg/dL (7-18); Bilirubin, Total 0.8 mg/dL (0.2-1.0); CO2 28.1 mmol/L (21.0-32.0); Calcium 8.8 mg/dL (8.5-10.1); Chloride 105 mmol/L (98-107); Glucose 199 mg/dL (74-106); Potassium 3.8 mmol/L (3.5-5.1); Sodium 141 mmol/L (136-145); Total Protein 6.0 g/dL (6.4-8.2)
[2025-05-24 18:18] LABS: CEA 4.7 ng/mL (See Note)
[2025-05-26 14:14] VITALS: BP 110/63; PULSE 72; RESP 16; TEMP 36; O2SAT 100
[2025-05-26] MEDS: Normal Saline Flush 10 ML SYR IVP (14:27)
== END 2025-06-05 23:59 | disposition home or self-care (01) ==
LOC: INF 00:07
PROVIDERS: Nurse Practitioner Family; PCP Family Medicine; Visit Provider Internal Medicine Hematology & Oncology
DX: C20 Malignant neoplasm of rectum (principal); Z45.2 Encounter for adjustment and management of vascular access device
CPT/HCPCS: 36591; 80053; 82378; 85025

== ENCOUNTER 2025-06-14 01:08 | Inpatient (IN) | payer MEDICARE, SELFPAY ==
[2025-06-14] VITALS (87 sets, daily range): BP systolic 115–197; BP diastolic 54–151; PULSE 64–159; RESP 15–37; TEMP 36.5–37.2; O2SAT 89–95
--- NOTE | 2025-06-14 01:00 | RT.EKG_ITS ---
APPROVED REPORT Exam: Resting ECG Reason for Exam: weakness Patient Location: E HR:126 bpm ECG Measurements Heart Rate 126 AXIS AL 185 P 49 QRSd 86 QRS 26 QT 279 T [id number] QTc 401 Conclusion Sinus tachycardia...rate> 99 Repolarization abnormality, prob rate related...ST dep, T neg, tachycardia no ST segment or T wave abnormalities to suggest occlusive [place]
[2025-06-14 01:38] LABS: Abs Immature Grans 0.14 10^3/uL (0.0-0.06); HCT 32.8 % (40.0-50.0); HGB 10.4 g/dL (13.5-17.5); Immature Grans % 1.1 %; MCH 27.7 pg (27.0-33.0); MCHC 31.7 % (32.0-36.0); MCV 88 fL (80-95); MPV 10.4 fL (8.0-11.0); Platelet Count 108 10^3/uL (130-400); RBC 3.75 10^6/uL (4.36-5.78); RDW 20.6 % (11.8-14.1); RDW-SD 64.3 fL; WBC 13.01 10^3/uL (4.4-10.8)
[2025-06-14] MEDS: dilTIAZem 25 MG/5 ML VIAL 10 MG IVP (01:40)
--- NOTE | 2025-06-14 01:45 | RT.EKG_ITS ---
APPROVED REPORT Exam: Resting ECG Reason for Exam: afib Patient Location: I HR:116 bpm ECG Measurements Heart Rate 116 AXIS CO 175 P 51 QRSd 81 QRS 15 QT 299 T 129 QTc 416 Conclusion Sinus tachycardia with irregular rate...V-rate 99-147, variation>10% no ST segment or T wave abnormalities to suggest occlusive [place]
--- NOTE | 2025-06-14 01:47 | W.ED.GENAD ---
Discharge Plan Disposition Patient Disposition: Admit to [facility] Condition: Serious Discharge Details Clinical Impression: Sepsis, Pneumonia, Atrial tachycardia Admit Date/Time: 06/14/25 05:44 Primary Care Provider: Soledad Slaughter ED Provider: Chhaya Quijano Home Meds and New Rx's Prescriptions: No Action ketoconazole 2 % cream 1 applic topical DAILY Qty: 120 6RF Rx Instructions: Apply to toenails once daily furosemide 20 mg tablet 40 mg PO DAILY ferrous sulfate 325 mg (65 mg iron) tablet 325 mg PO DAILY cholecalciferol (vitamin D3) 50 mcg (2,000 unit) capsule 50 mcg PO DAILY Galzin 50 mg (zinc) capsule 50 mg PO DAILY ondansetron HCl 8 mg tablet 8 mg PO Q8H fluorouracil 5 % cream 1 applic topical BID citalopram 20 MG tablet 10 mg PO DAILY Diabetic Shoe w Lift Qty: 1 0RF Rx Instructions: Please provide a diabetic shoes. On the left side, please accomodate for left leg length discrepancy, right longer than left. Recommend 1.5cm lift built into the left shoe. Diabetic Shoe w Lift 0RF insulin degludec [Tresiba FlexTouch U-100] 100 unit/mL (3 mL) insulin pen 25 unit subcut DAILY Ozempic 1 mg/dose (4 mg/3 mL) pen injector 0.5 mg subcut QWEEK acetaminophen 325 mg tablet 650 mg PO Q6H PRN albuterol sulfate 2.5 mg /3 mL (0.083 %) solution for nebulization 2.5 mg inhalation Q2H PRN clonidine HCl 0.3 mg tablet 0.3 mg PO BID Incruse Ellipta 62.5 mcg/actuation blister with device 1 inh inhalation DAILY valacyclovir 500 mg tablet 500 mg PO TID atorvastatin [Lipitor] 40 MG tablet 40 mg PO DAILY Qty: 0 0RF Rx Instructions: discuss dose with Dr. Slaughter metolazone 2.5 mg Tablet 2.5 mg PO .TWICE WEEKLY metformin 500 mg Tablet 1,000 mg PO BID cyanocobalamin (vitamin B-12) [Vitamin B-12] 1,000 mcg Tablet 1,000 mcg PO BID clopidogrel 75 mg Tablet 75 mg PO DAILY allopurinol 100 mg Tablet 100 mg PO DAILY fluticasone propion-salmeterol [Advair Diskus] 500-50 mcg/dose Blister With Device 1 inh INHALATION BID clonidine HCl 0.3 mg tablet 0.2 mg PO BID lisinopril 40 mg tablet 40 mg PO DAILY amlodipine 5 mg tablet 10 mg PO HS pantoprazole 40 mg tablet,delayed release (DR/EC) 40 mg PO DAILY AM PRN HPI General Mode of arrival: EMS. Date/Time Provider Initiated Documentation: 06/14/25 01:11. Limitations to Documentation: no limitations. Information obtained by: patient and old records reviewed. HPI Narrative: 84yo M with hx colorectal cancer currently on chemotherapy, CKD, COPD not on daytime O2, SAMMI on nocturnal CPAP, CVA, DM, HTN, HLD, venous stasis dermatitis, gout, presenting via EMS after a fall. Patient reports he has felt progressively more weak for the past 3 days. Has some lightheadedness and shortness of breath that are worst first thing in the morning and improve throughout the day, though he remains more short of breath with exertion than usual. This evening was trying to get out of his chair at home and was unable, slid/fell to the floor landing mostly on his right side. No head strike or loss of consciousness. He was unable to get himself back up. He denies any pain or significant injury at this time, does not feel short of breath at rest. He does report that last week he had some left sided chest pain which has since resolved; did not seek medical evaluation at that time. For EMS HR was 150's on their arrival with patient in ib; for this reason they advised him to come to the hospital. He states that he does not think he injured himself in the fall and wound not have come to the ED for that reason. EMS gave ~500cc IVF en route and while en route his HR was consistently in the 80's. Patient is otherwise in his usual state of health with no fevers, chills, rash, headache, neck pain, nausea, vomiting, abdominal pain, dysuria, hemauria, numbness, tingling, vertigo, vision changes, or other concerns. Related Data Home Medications ?Medication ?Instructions ?Recorded ?Confirmed citalopram 20 mg tablet 10 mg PO DAILY 12/02/12 06/14/25 atorvastatin 40 mg tablet (Lipitor) 40 mg PO DAILY ##0 03/28/15 06/14/25 allopurinol 100 mg tablet 100 mg PO DAILY 03/13/19 06/14/25 clopidogrel 75 mg tablet 75 mg PO DAILY 03/13/19 06/14/25 cyanocobalamin (vitamin B-12) 1,000 mcg PO BID 03/13/19 06/14/25 1,000 mcg tablet (Vitamin B-12) fluticasone 500 mcg-salmeterol 50 1 inh inhalation BID 03/13/19 06/14/25 mcg/dose blistr powdr for inhalation (Advair Diskus) metformin 500 mg tablet 1,000 mg PO BID 03/13/19 06/14/25 metolazone 2.5 mg tablet 2.5 mg PO .TWICE WEEKLY 03/13/19 06/14/25 lisinopril 40 mg tablet 40 mg PO DAILY 03/10/21 06/14/25 amlodipine 5 mg tablet 10 mg PO HS 02/13/22 06/14/25 cholecalciferol (vitamin D3) 50 50 mcg PO DAILY 02/13/22 06/14/25 mcg (2,000 unit) capsule ferrous sulfate 325 mg (65 mg 325 mg PO DAILY 02/13/22 06/14/25 iron) tablet furosemide 20 mg tablet 40 mg PO DAILY 02/13/22 06/14/25 zinc acetate 50 mg (zinc) capsule 50 mg PO DAILY 02/13/22 06/14/25 (Galzin) pantoprazole 40 mg tablet,delayed 40 mg PO DAILY AM PRN 10/11/23 06/14/25 release clonidine HCl 0.3 mg tablet 0.2 mg PO BID 08/24/24 06/14/25 acetaminophen 325 mg tablet 650 mg PO Q6H PRN 11/07/24 06/14/25 albuterol sulfate 2.5 mg/3 mL 2.5 mg inhalation Q2H PRN 11/07/24 06/14/25 (0.083 %) solution for nebulization clonidine HCl 0.3 mg tablet 0.3 mg PO BID 11/07/24 06/14/25 insulin degludec 100 unit/mL (3 25 unit subcut DAILY 11/07/24 06/14/25 mL) subcutaneous pen (Tresiba FlexTouch U-100 insulin) semaglutide 1 mg/dose (4 mg/3 mL) 0.5 mg subcut QWEEK 11/07/24 06/14/25 subcutaneous pen injector (Ozempic) umeclidinium 62.5 mcg/actuation 1 inh inhalation DAILY 11/07/24 06/14/25 blister powder for inhalation (Incruse Ellipta) valacyclovir 500 mg tablet 500 mg PO TID 11/07/24 06/14/25 ketoconazole 2 % topical cream 1 applic topical DAILY #120 grams 12/28/24 06/14/25 fluorouracil 5 % topical cream 1 applic topical BID 05/18/25 06/14/25 ondansetron HCl 8 mg tablet 8 mg PO Q8H 05/18/25 06/14/25 Previous Rx's ?Medication ?Instructions ?Recorded atorvastatin 40 mg tablet (Lipitor) 40 mg PO DAILY ##0 03/28/15 ketoconazole 2 % topical cream 1 applic topical DAILY #120 grams 12/28/24 Allergies Allergy/AdvReac Type Severity Reaction Status Date / Time cephalexin AdvReac Intermediate genitourinary Verified 06/14/25 01:35 edema General Stated Complaint: Fall/Non TraumaCriteria MAURILIO: 3 Review of Systems Narrative: see HPI Exam Narrative Exam Narrative: GENERAL: Alert, no acute distress. SKIN: Warm and well perfused. Small skin tear to right elbow and ~1cm area of echymosis to left knee, otherwise no bruises, lacerations, or abrasions. Venous stasis dermatitis BLE. HEAD: Atraumatic, normocephalic without edema, discoloration or evidence of trauma. Facial bones without deformities or tenderness. EYES: PERRL. No scleral icterus or conjunctival injection. Extraocular muscles intact without nystagmus or diplopia. EARS: Normal appearing pinnae. No hemotympanum. NOSE: No discharge, tenderness, laxity. No nasal septal hematoma. MOUTH: No malocclusion or trismus. Moist mucus membranes without blood. NECK: Trachea midline. No discolorations or edema. Full pain free ROM. CV: Irregular, tachycardiac. Normal s1 and s2. No murmurs, rubs, or gallops. PV: Radial pulses 2+ bilaterally and symmetric. 2+ capillary refill. CHEST: No abrasions or ecchymosis. Chest symmetric with respirations. No chest wall tenderness. Lungs are clear to auscultation bilaterally. ABDOMEN: No ecchymosis or abrasions. Soft, nondistended, nontender. BACK: No abrasions, skin openings, or ecchymosis. Spine without bony tenderness, no step offs. PELVIC: Pelvis stable, nontender to lateral compression and palpation of symphysis pubis. : Normal external genitalia without blood at meatus. No ecchymosis or edema. MSK: No gross deformities. Tolerates full range of motion of extremities without tenderness. NEURO: Alert and oriented to person, place, and time. GCS 15. Sensation grossly intact. Moves all extremities freely against gravity. Course Vital Signs Vital signs: Vital Signs Temperature 37.2 C 06/14/25 01:04 Pulse 128 H 06/14/25 01:04 Respiratory Rate 32 H 06/14/25 01:04 Blood Pressure 166/93 H 06/14/25 01:04 Pulse Oximetry 92 06/14/25 01:04 Temperature 37.2 C 06/14/25 01:04 Temperature Source Oral 06/14/25 01:04 Pulse 154 H 06/14/25 01:40 Respiratory Rate 32 H 06/14/25 01:04 Blood Pressure 185/59 H 06/14/25 01:40 Blood Pressure Position Sitting 06/14/25 01:04 Pulse Oximetry 95 06/14/25 01:21 Oxygen Delivery Method Room Air 06/14/25 01:04 Oxygen Flow Rate 0 06/14/25 01:04 Pain Level 0 06/14/25 01:04 Lab/Test Results Lab/Test Results: Laboratory Tests Range/Units 06/14/25 01:29 D-Dimer Cancelled Medical Decision Making 84yo M with hx colorectal cancer currently on chemotherapy, CKD, COPD not on daytime O2, SAMMI on nocturnal CPAP, CVA, DM, HTN, HLD, venous stasis dermatitis, gout, presenting via EMS after a fall. Has had three days of worsening weakness, lightheadedness, and shortness of breath with exertion; this evening slid out of his chair and was unable to get back up. No HS or LOC and denies any pain currently. Of note, he had left sided chest pain last week which has since resolved and is not currently present. For EMS HR was 150's on their arrival with patient in afib; gave ~500cc IVF en route and while en route his HR was consistently in the 80's. Initial eval and resus: -Hypertensive with SBP 180's on my evaluation, afebrile, normal RR (initial charted value of 32 likely artifactual from monitor per nursing). Nontoxic and in no distress on exam, no significant traumatic findings, lungs CTAB. -Afib on the monitor on arrival, rate initially 120's then up to 150's. EKG with rate 120's, predominately sinus rhythm with polymorphic p waves and periods of questionable afib (appears similar on compliance monitor at this time); shortly after EKG again appears to be more consistent with afib on monitor. -Given 20mg IV diltazem which should help with rate control as well as hypertension. Following this appears more consistently sinus on the monitor, repeat EKG sinus/ectopic atrial tachycardia, rate 110's. Ed course: Labs reviewed as below: -CBC with leukocytosis to 13 and anemia with Hg 10.4 (chronic but appears worse than baseline), thrombocytopenia with plt 108. -CMP with Cr somewhat worse than baseline at 1.7, mildly elevated anion gap at 13.7, mildly elevated bilirubin at 1.3. -Mg low at 1.4. -BNP elevated at ~2600 (pt without hx of heart failure but has had BNP in this range in the past) as well as hypoalbumin (chronic but worse than baseline). -Initial troponin 86. -Lipase normal -TSH normal. -UA not suggestive of infection -Respiratory viral swab negative No clear focus of infection on history or exam, however with leukocytosis & tachycardia in patient on chemotherapy will treat empirically for sepsis with broad spectrum abx (zosyn/zyvox) while awaiting results of workup including blood and urine cultures. Lactate 3.8; BNP is elevated but no clinical signs of heart failure on exam; will give additional 1L IVFB here. Suspect troponin elevation from demand/[id number] rather than T1, though missed WA given chest pain last week also possible. Will give 325 of aspirin and trend troponins, would not start heparin at this time. IV magnesium replacement ordered. CTA independently reviewed; no saddle emoblus, right sided pulmonary infiltrate (?pneumonia ) on my view. Radiology read pending. XR independently reviewed; no displaced fracture or dislocation on my view. Radiology read pending. Repeat troponin uptrending to 104. On reassessment HR remains 120's-130's, irregular, p-waves present on monitor (does have very brief periods with rates 140's-160's that appear more consistent with afib). SBP now increasing to 190's after IVF. Will hold off on additional IVF for now, send repeat lactate. On reassessment patient remains non-toxic appearing and denies complaints including chest pain or shortness of breath at rest. HR 110's-120's, BP 163/80, RR low-mid 20's on my exam. Repeat lactate improved to 3.2, 3rd troponin continues to uptrend to 130. Discussed with [facility] [place]. [place]iao, agree troponin likely represents demand ischemia and advised treating as such, EKG rhythm indeterminate possible multifocal atrial tachycardia and advised against treating with further rate control medications or starting AC at this time. Advised echocardiogram when available. Radiology reads below, hip/pelvis with no acute findings, chest with RLL pneumonia and no pulmonary embolism. Discussed with [facility] hospitalist MINDI Solomon; pt accepted to medicine service for further workup and management. Transferred to the floor. Medical Records Medical records reviewed: Yes I reviewed the patient's medical records. Imaging Data Radiologic Study: Imaging: CT Scan Radiologist's impression: IMPRESSION: 1. No pulmonary artery embolism demonstrated. 2. Coronary artery disease. 3. Consolidative pneumonia in right lower lobe. 4. Minute right pleural effusion. 5. New 8 mm nodule or nodular infiltrate in left upper lobe. Surveillance CT is recommended in 3 months following 2017 Fleischner criteria. Radiologic Study #2: Imaging: X-Ray Radiologist's impression: IMPRESSION: 1. No acute displaced fracture or subluxation. 2. Bones are demineralized, limiting evaluation for small nondisplaced fractures. Critical Care Time Critical Care Time Critical Care Time: Yes Total Critical Care Time: 46 Attestation: Due to a high probability of clinically significant, life threatening deterioration, the patient required my highest level of preparedness to intervene emergently and I personally spent this critical care time directly and personally managing the patient. This critical care time included obtaining a history; examining the patient; pulse oximetry; ordering and review of studies; arranging urgent treatment with development of a management plan; evaluation of patient's response to treatment; frequent reassessment; and, discussions with other providers. This critical care time was performed to assess and manage the high probability of imminent, life-threatening deterioration that could result in multi-organ failure. It was exclusive of separately billable procedures and treating other patients PFSH All Active Problems (Updated 06/14/25 @ 06:35 by GINA PAULINO) Atrial tachycardia (Acute) Pneumonia (Acute) Sepsis (Acute) Cystic kidney disease, acquired (Acute) Edema of both lower extremities (Acute) Osteoarthritis (Chronic) Megaloblastic anemia due to B12 deficiency (Acute) Restrictive lung disease (Acute) Cyst of kidney, acquired (Acute) Primary malignant colorectal neoplasm (Acute) Bradycardia (Acute) Barretts esophagus (Acute) Hypomagnesemia (Acute) Generalized anxiety disorder (Acute) Neuropathy due to type 2 diabetes mellitus (Acute) Type 2 diabetes mellitus (Acute) Chronic kidney disease, stage 3 (Acute) Essential hypertension (Acute) Obstructive sleep apnea syndrome (Chronic) Iron deficiency anemia (Acute) Screening for malignant neoplasm of skin (Acute) Abnormal skin growth (Acute) Actinic keratoses (Acute) Seborrheic keratoses (Acute) Disorder of the skin and subcutaneous tissue, unspecified (Acute) Leg wound, right (Acute) Umbilical hernia (Acute) Hyperlipidemia (Chronic) Hypertension (Chronic) Obesity (Chronic) Sleep apnea (Chronic) COPD (chronic obstructive pulmonary disease) (Chronic) GERD (gastroesophageal reflux disease) (Chronic) Gout (Chronic) Stasis dermatitis of both legs (Chronic) Anemia (Acute) Diabetes mellitus type 2 in obese (Acute) Sinus bradycardia (Acute) 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) (Acute) Cellulitis of leg, right (Acute) Chronic venous stasis dermatitis of both lower extremities (Acute) COPD (chronic obstructive pulmonary disease) (Chronic) DVT prophylaxis (Acute) Ulcer of right lower leg (Acute) Venous stasis (Acute) Venous stasis ulcer of ankle limited to breakdown of skin (Acute) Leg length discrepancy (Acute 02/09/18) Primary osteoarthritis of right knee (Acute 11/01/17) Mitral valve regurgitation (Chronic) CVA (cerebral vascular accident) (Chronic) CKD stage 3 due to type 2 diabetes mellitus (Acute) Diabetic neuropathy (Acute) ORVILLE positive (Acute) Onychomycosis (Acute) Medical History (Updated 06/14/25 @ 06:35 by GINA PAULINO) Gout Severe obesity Tinnitus Hernia of anterior abdominal wall Family history of malignant neoplasm of prostate Proteinuria Idiopathic stabbing headache Antinuclear factor positive History of CVA (cerebrovascular accident) without residual deficits Kidney mass COVID Cutaneous abscess of abdominal wall Slurred speech Weakness Diabetic ulcer of right lower leg associated with diabetes mellitus due to underlying condition, with fat layer exposed Renal insufficiency Cirrhosis Cellulitis Hx TIA/stroke w/o resid SAMMI on CPAP HLD (hyperlipidemia) HTN (hypertension) Venous stasis ulcer right lateral calf Acute kidney injury (nontraumatic) Scalp hematoma Chest wall contusion Syncope Diabetes mellitus Community acquired pneumonia With hypoxia and bronchospasm. Surgical History History of surgery Debridement of right leg wound with Apligraf History of cholecystectomy H/O rectal sphincterotomy History of appendectomy History of total right hip arthroplasty Family History Father , age 63 Heart disease Stroke Hypertension Mother , age 101 No problems noted. Brother Prostate cancer Other Neoplasm Social History Smoking/Tobacco Use Status: Former Tobacco Use Quit Date: 03/06/84 Smoking risk assessment performed?: Yes Alcohol Intake: never Drug use: Never Substance use type: does not use Housing: house Current gender identity: male Do you feel safe at home: Yes Do you feel safe in your relationship?: Yes
[2025-06-14 01:52] LABS: Anisocytosis 1+; Poikilocytes 1+
[2025-06-14 01:54] LABS: INR 1.0 (0.9-1.1); PTT Activated 33.2 sec (20.6-30.2); Prothrombin Time 9.9 sec (9.1-11.1)
[2025-06-14 02:03] LABS: ALT 16 U/L (16-63); AST 34 U/L (15-37); Albumin 1.9 g/dL (3.4-5.0); Alkaline Phosphatase 189 U/L (46-116); Anion Gap 13.7 mmol/L (3-11); BUN 21 mg/dL (7-18); Bilirubin, Total 1.3 mg/dL (0.2-1.0); CO2 23.3 mmol/L (21.0-32.0); Calcium 9.1 mg/dL (8.5-10.1); Chloride 102 mmol/L (98-107); Estimated GFR 39.26 (mL/min/1.73m2); Glucose 151 mg/dL (74-106); Lipase 48 U/L (<78); Magnesium 1.4 mg/dL (1.8-2.4); NT-proBNP 2675 pg/mL (<300); Potassium 3.8 mmol/L (3.5-5.1); Sodium 139 mmol/L (136-145); Total Protein 6.5 g/dL (6.4-8.2)
[2025-06-14 02:07] LABS: Troponin I 86 ng/L (<or=76)
[2025-06-14] MEDS: PIPERACILLIN/TAZO 3.375 GM in Normal Saline 50 ML IVPB (02:19)
[2025-06-14] MEDS: Aspirin 81 MG CHEW 324 MG CH (02:19)
[2025-06-14 02:23] LABS: TSH (W/Ref FT4) 1.12 uIU/mL (0.36-3.74)
[2025-06-14 02:31] LABS: COVID-19 PCR Negative (Negative); RSV PCR Negative (Negative)
[2025-06-14] MEDS: LINEZOLID 600 MG/300 ML BAG 300 MG IVPB (02:33)
[2025-06-14] MEDS: MAGNESIUM SULFATE 1 GM/100 ML BAG IV_INF (02:33)
[2025-06-14] MEDS: Normal Saline 1,000 ML 1000 ML IV (02:33)
--- NOTE | 2025-06-14 02:45 | RT.EKG_ITS ---
APPROVED REPORT Exam: Resting ECG Reason for Exam: tachycardia Patient Location: E HR:126 bpm ECG Measurements Heart Rate 126 AXIS IN 169 P 35 QRSd 77 QRS 52 QT 308 T 20 QTc 446 Conclusion Sinus tachycardia...rate> 99 Supraventricular bigeminy...bigeminy string>4 w/ SV complexes Low voltage, extremity leads...all extremity leads <0.5mV no ST segment or T wave abnormalities to suggest occlusive OR
[2025-06-14 02:50] LABS: Troponin I 104 ng/L (<or=76)
[2025-06-14] MEDS: Normal Saline - Diluent 50 ML VIAL IJ (02:59)
[2025-06-14] MEDS: Omnipaque 350 MG/ML 100 ML BTL IJ (02:59)
[2025-06-14] MEDS: Normal Saline Flush 10 ML SYR IVP ×3 (02:59→13:45)
--- NOTE | 2025-06-14 03:00 | DI.CT_ITS ---
Exam(s) CT CHEST PE CTA EXAM: CT CHEST PE CTA CLINICAL HISTORY: SOB, fatigue, new onset afib, cancer. TECHNIQUE: Imaging Protocol: Axial CT angiography was performed with multi- slice acquisition and multi-planar and/or 3D reconstructions. Lung Computer Aided Detection (CAD) was utilized. CONTRAST MATERIAL: Intravenous: Omnipaque 350 contrast volume:85 mL COMPARISON: CT CHEST HIGH RESOLUTION from 01/29/[address] CHEST WO from 03/10/[address] CHEST/ABD/PEL W from 03/07/2025 FINDINGS: Tracheobronchial tree: Patent where visualized. No bronchiectasis. Pulmonary parenchyma: There has been interval development of a consolidation in the right lower lobe with air bronchograms. There is also a small infiltrate in the right middle lobe. Dependent atelectasis is seen in the left lung base. There is a new 1.4 cm ground-glass opacity in the left upper lobe. The left lower lobe pulmonary nodule is stable. Pulmonary Arteries: No evidence of filling defect to suggest pulmonary emboli. Mediastinum and [place]: There has been interval large mint of a right superior mediastinal lymph node (series 11, image 20). It measures 1.4 cm compared to 6 mm on the prior examination. There also mildly enlarged right hilar lymph nodes. The esophagus is unremarkable. Visualized thyroid gland: Unremarkable. Pleura: There is a small right pleural effusion. No left pleural effusion. No pneumothorax. There is again seen pleural calcification in the right hemithorax. Heart: The heart is not dilated. Moderate three-vessel coronary artery calcification is present. No pericardial effusion. Aorta: Thoracic aorta non-dilated. No evidence of dissection. Atherosclerotic calcification is present. Upper abdomen: There is a small amount of abdominal ascites present. Tubes, Catheters, and Lines: There is a right anterior chest wall port. Soft tissues: Bilateral gynecomastia. Mild muscular fatty atrophy. Bones: Within normal limits for the patient's age.Thin anterior and posterior bony fusion is seen throughout the thoracic spine suspicious for ankylosing spondylitis. No suspicious lytic or sclerotic lesions are present. IMPRESSION: 1. No evidence of pulmonary embolism, thoracic aortic dissection or aneurysm. 2. New right middle and right lower lobe infiltrate suspicious for pneumonia. 3. 1.4 cm ground-glass opacity in the left upper lobe. Pulmonary nodule versus infection should be considered. A follow-up CT scan in 3 months is recommended for re-evaluation For solitary solid noncalcified nodules larger than 8 mm in diameter, consider 3-month follow-up, work-up with combined positron emission tomography (PET) and CT (PET/CT), tissue sampling, or a combination thereof; any one of these options may be appropriate depending on size, morphology, comorbidity, and other factors. (grade 1A; strong recommendation, high-quality evidence). (Rosie et al., 2017) 4. Mildly enlarged lymph nodes seen in the mediastinum and right hilum which are likely reactive. 5. Small right pleural effusion. 6. Small amount of abdominal ascites. 7. The preliminary [facility] report was reviewed. RADIATION DOSE DELIVERED: 205.63mGy.cm Total DLP DATA REPOSITORY: All CT scans at this facility are submitted to the National Radiology Data Registry (NRDR) Dose Index Registry (DIR) with the [employer] ([employer]). RADIATION OPTIMIZATION: All CT scans at this facility use at least one of these dose optimization techniques: automated exposure control; mA and/or kV adjustment per patient size (includes targeted exams where dose is matched to clinical indication); or iterative reconstruction.
--- NOTE | 2025-06-14 03:00 | DI.RAD_ITS ---
Exam(s) XR HIP PELVIS ADULT BL EXAM: XR HIP PELVIS ADULT BL CLINICAL HISTORY: fall, inability to walk. TECHNIQUE: 2D digital imaging was performed. COMPARISON: No exams were available for comparison FINDINGS: 3 views There is a right hip prosthesis. This appears intact with normal position alignment of the components and no evidence of fracture or loosening. Abundant dystrophic calcification is evident between the greater trochanter and superolateral aspect of the acetabulum on the ipsilateral side. There are moderate degenerative changes noted in the opposite-left hip but no evidence of acute left hip fracture and there are no fractures evident in the pelvis. There is age-related osteopenia but no distinct osseous lesions. Intravenous contrast is noted in both ureters from proceeding CT scan. IMPRESSION: Intact appearing right hip prosthesis. No obvious fractures. DATA REPOSITORY: RADIATION DOSE DELIVERED:
[2025-06-14 03:52] LABS: Glucose Negative (Negative)
--- NOTE | 2025-06-14 03:56 | NUR.NOTE ---
Nursing Note:0201 diltiazem not given/acknowledged at this time due to provider verbal cancellation due to HR and rhythm at time.
[2025-06-14 04:01] LABS: RBC Negative HPF (0-2); WBC Negative HPF (0-5)
[2025-06-14 04:07] LABS: Troponin I 130 ng/L (<or=76)
--- NOTE | 2025-06-14 04:46 | DI.[facility]_ITS ---
PROCEDURE INFORMATION: Exam: XR Right Hip Exam date and time: 06/14/2025 2:52 AM Age: 84 years old Clinical indication: Injury or trauma; Blunt trauma (contusions or hematomas); Bilateral; Injury date: 06/14/25; Prior surgery; Surgery date: 6+ months; Surgery type: Hip replacement; Fall, inability to walk TECHNIQUE: Imaging protocol: Radiologic exam of the right hip. Views: 2 or 3 views hip with pelvis when performed. COMPARISON: CT CHEST/ABD/PEL W 03/07/2025 2:02 PM FINDINGS: Bones/joints: No acute displaced fracture or subluxation demonstrated. There is marked demineralization, limiting evaluation for small nondisplaced fractures. Degenerative changes. Patient has undergone total right hip replacement. Soft tissues: Unremarkable. IMPRESSION: 1. No acute displaced fracture or subluxation. 2. Bones are demineralized, limiting evaluation for small nondisplaced fractures. Dictated and Authenticated by: Marko Rockwell MD. Orderin Samm Shaver MD
--- NOTE | 2025-06-14 05:15 | DI.VRAD_ITS ---
PROCEDURE INFORMATION: Exam: CTA Chest With Contrast Exam date and time: 06/14/2025 2:24 AM Age: 84 years old Clinical indication: Shortness of breath and other: Fatigue, new onset afib, cancer; SOB, fatigue, new onset afib, cancer. Primary cancer is rectal TECHNIQUE: Imaging protocol: Computed tomographic angiography of the chest with contrast. Exam focused on the arteries. 3D rendering (Not supervised by radiologist): MIP and/or 3D reconstructed images were created by the technologist. Radiation optimization: All CT scans at this facility use at least one of these dose optimization techniques: automated exposure control; mA and/or kV adjustment per patient size (includes targeted exams where dose is matched to clinical indication); or iterative reconstruction. Contrast material: [id number]; Contrast volume: 85 ml; Contrast route: INTRAVENOUS (IV); COMPARISON: CT CHEST/ABD/PEL W 03/07/2025 2:02 PM FINDINGS: Tubes, catheters and devices: Central infusion device with catheter terminating in right atrium. Pulmonary arteries: Main pulmonary artery minimally dilated. No pulmonary artery filling defects. Aorta: No aortic aneurysm or dissection. Lungs: Dense parenchymal consolidation in basilar right lower lobe with surrounding smaller areas of alveolar and interstitial infiltrate. There is a new nodule or nodular infiltrate measuring 8 mm in left upper lobe at level of main pulmonary artery. Pleural spaces: No pneumothorax. Minute right pleural effusion. Pleural calcifications in lower right hemithorax. Heart: Heart minimally enlarged. No pericardial effusion. Heart RV/LV ratio: 0.92 Coronary arteries: Coronary artery calcification. Lymph nodes: Unremarkable. No enlarged lymph nodes. Bones/joints: The spine demonstrates moderate degenerative changes at multiple levels. Bones are demineralized. Soft tissues: Unremarkable. IMPRESSION: 1. No pulmonary artery embolism demonstrated. 2. Coronary artery disease. 3. Consolidative pneumonia in right lower lobe. 4. Minute right pleural effusion. 5. New 8 mm nodule or nodular infiltrate in left upper lobe. Surveillance CT is recommended in 3 months following 2017 Fleischner criteria. Dictated and Authenticated by: Marko Rockwell MD. Orderin Samm Shaver MD
--- NOTE | 2025-06-14 06:26 | W.PC.ACHO ---
Registration Status: REG ER Primary Language: Preferred Language: Albanian ED Information & Data Chief Complaint Fall/Non TraumaCriteria 06/14/25 01:47 Triage Note BIBEMS, fall at home, no LOC 06/14/25 01:04 , pt states legs just gave out. weakness, uses cane baseline. SOB w/ exertion, HR 140-150s afib, no known afib. HR 80s on transport. denies chest pain. got ~ 500ml. 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 due to underlying condition, with fat layer exposed Renal insufficiency Cirrhosis Cellulitis Hx TIA/stroke w/o resid SAMMI on CPAP HLD (hyperlipidemia) HTN (hypertension) Venous stasis ulcer Acute kidney injury (nontraumatic) Scalp hematoma Chest wall contusion Syncope Diabetes mellitus Community acquired pneumonia (Last Reviewed 12/28/24 @ 10:39 by Yanet Francis DPM) History of surgery History of cholecystectomy H/O rectal sphincterotomy History of appendectomy History of total right hip arthroplasty Most Recent Vital Signs Temperature 37.2 C 06/14/25 01:04 Temperature Source Oral 06/14/25 01:04 Pulse 78 06/14/25 05:31 Pulse 118 H 06/14/25 05:31 Respiratory Rate 27 H 06/14/25 05:31 Blood Pressure 148/60 H 06/14/25 05:31 Blood Pressure Mean 71 06/14/25 05:31 Blood Pressure Position Sitting 06/14/25 01:04 Pulse Oximetry 92 06/14/25 05:31 Oxygen Delivery Method Room Air 06/14/25 01:04 Oxygen Flow Rate 0 06/14/25 01:04 Pain Level 0 06/14/25 01:04 Allergies cephalexin Adverse Reaction (Intermediate, Verified 06/14/25 01:35) genitourinary edema Pt denies allergy to medications Precautions Isolation Fall precaution 06/14/25 01:09 Active Medications Generic Name Dose Route Start Last Admin Trade Name Freq PRN Reason Stop Dose Admin Iohexol 100 ml 06/14/25 03:00 06/14/25 02:59 Omnipaque 350 Mg/Ml 100 Ml Btl IJ 07/14/25 23:59 85 ml DIRECTED HENRY Administration Sodium Chloride 50 ml 06/14/25 03:00 06/14/25 02:59 Normal Saline - Diluent 50 Ml Vial IJ 50 ml DIRECTED HENRY Administration Sodium Chloride 0 ml 06/14/25 02:58 06/14/25 02:59 Normal Saline Flush 10 Ml Syr IVP 10 ml PRN PRN Administration IV IV Catheter Type [Left Peripheral IV Antecubital] IV Catheter Gauge [Left 20 Antecubital] Diagnostics 06/14/25 06/14/25 06/14/25 Range/Units 03:38 03:35 02:57 WBC (4.4-10.8) 10^3/uL RBC (4.36-5.78) 10^6/uL Hgb (13.5-17.5) g/dL Hct (40.0-50.0) % MCV (80-95) fL MCH (27.0-33.0) pg MCHC (32.0-36.0) % RDW (11.8-14.1) % Plt Count (130-400) 10^3/uL MPV (8.0-11.0) fL Immature Gran % % Neutrophils % % Lymphocytes % % Monocytes % % Eosinophils % % Basophils % % Nucleated RBC % (0.0-0.3) % Absolute Neutrophils (1.2-6.7) 10^3/uL Absolute Lymphocytes (1.2-3.4) 10^3/uL Absolute Monocytes (0.1-0.8) 10^3/uL Absolute Eosinophils (0.0-0.7) 10^3/uL Absolute Basophils (0.0-0.2) 10^3/uL RBC Morphology Poikilocytosis Anisocytosis PT (9.1-11.1) sec INR (0.9-1.1) APTT (20.6-30.2) sec D-Dimer VBG Lactate 3.2 H* 3.8 H* (<or=2.0) mmol/L Sodium (136-145) mmol/L Potassium (3.5-5.1) mmol/L Chloride (98-107) mmol/L Carbon Dioxide (21.0-32.0) mmol/L Anion Gap (3-11) mmol/L BUN (7-18) mg/dL Creatinine (0.70-1.30) mg/dL Est GFR (CKD-EPI 2020) (mL/min/1.73m2) Glucose (74-106) mg/dL Calcium (8.5-10.1) mg/dL Magnesium (1.8-2.4) mg/dL Total Bilirubin (0.2-1.0) mg/dL AST (15-37) U/L ALT (16-63) U/L Alkaline Phosphatase (46-116) U/L Troponin I 130 H* (<or=76) ng/L NT-Pro-B Natriuret Pep (<300) pg/mL Total Protein (6.4-8.2) g/dL Albumin (3.4-5.0) g/dL Lipase (<78) U/L TSH (0.36-3.74) uIU/mL Urine Color Yellow (Yellow) Urine Clarity Sl Cloudy (Clear) Urine pH 5.0 (5-8) Ur Specific [place] 1.020 (1.005-1.025) Urine Protein 30 H (Neg-Trace) mg/dL Urine Ketones Negative (Negative) mg/dL Urine Blood Negative (Negative) Urine Nitrite Negative (Negative) Urine Bilirubin Negative (Negative) Urine Urobilinogen 0.2 (Up to 0.2) mg/dL Ur Leukocyte Esterase Negative (Negative) Urine RBC Negative (0-2) HPF Urine WBC Negative (0-5) HPF Ur Epithelial Cells Negative (Negative) HPF Urine Crystals Moderate Amorphous (Negative) HPF Urine Bacteria Few (Negative) HPF Urine Casts 0-2 Fine Granular (Negative) LPF Urine Mucus Trace (Negative) Ur Culture Indicated? C&S Done As Ordered Urine Glucose Negative (Negative) mg/dL COVID-19 Source SARS-CoV-2 (PCR) (Negative) Influenza Type A (PCR) (Negative) Influenza Type B (PCR) (Negative) RSV (PCR) (Negative) 06/14/25 06/14/25 06/14/25 Range/Units 02:25 01:48 01:29 WBC (4.4-10.8) 10^3/uL RBC (4.36-5.78) 10^6/uL Hgb (13.5-17.5) g/dL Hct (40.0-50.0) % MCV (80-95) fL MCH (27.0-33.0) pg MCHC (32.0-36.0) % RDW (11.8-14.1) % Plt Count (130-400) 10^3/uL MPV (8.0-11.0) fL Immature Gran % % Neutrophils % % Lymphocytes % % Monocytes % % Eosinophils % % Basophils % % Nucleated RBC % (0.0-0.3) % Absolute Neutrophils (1.2-6.7) 10^3/uL Absolute Lymphocytes (1.2-3.4) 10^3/uL Absolute Monocytes (0.1-0.8) 10^3/uL Absolute Eosinophils (0.0-0.7) 10^3/uL Absolute Basophils (0.0-0.2) 10^3/uL RBC Morphology Poikilocytosis Anisocytosis PT (9.1-11.1) sec INR (0.9-1.1) APTT (20.6-30.2) sec D-Dimer Cancelled VBG Lactate (<or=2.0) mmol/L Sodium (136-145) mmol/L Potassium (3.5-5.1) mmol/L Chloride (98-107) mmol/L Carbon Dioxide (21.0-32.0) mmol/L Anion Gap (3-11) mmol/L BUN (7-18) mg/dL Creatinine (0.70-1.30) mg/dL Est GFR (CKD-EPI 2020) (mL/min/1.73m2) Glucose (74-106) mg/dL Calcium (8.5-10.1) mg/dL Magnesium (1.8-2.4) mg/dL Total Bilirubin (0.2-1.0) mg/dL AST (15-37) U/L ALT (16-63) U/L Alkaline Phosphatase (46-116) U/L Troponin I 104 H* (<or=76) ng/L NT-Pro-B Natriuret Pep (<300) pg/mL Total Protein (6.4-8.2) g/dL Albumin (3.4-5.0) g/dL Lipase (<78) U/L TSH (0.36-3.74) uIU/mL Urine Color (Yellow) Urine Clarity (Clear) Urine pH (5-8) Ur Specific [place] (1.005-1.025) Urine Protein (Neg-Trace) mg/dL Urine Ketones (Negative) mg/dL Urine Blood (Negative) Urine Nitrite (Negative) Urine Bilirubin (Negative) Urine Urobilinogen (Up to 0.2) mg/dL Ur Leukocyte Esterase (Negative) Urine RBC (0-2) HPF Urine WBC (0-5) HPF Ur Epithelial Cells (Negative) HPF Urine Crystals (Negative) HPF Urine Bacteria (Negative) HPF Urine Casts (Negative) LPF Urine Mucus (Negative) Ur Culture Indicated? Urine Glucose (Negative) mg/dL COVID-19 Source Nasopharynx SARS-CoV-2 (PCR) Negative (Negative) Influenza Type A (PCR) Negative (Negative) Influenza Type B (PCR) Negative (Negative) RSV (PCR) Negative (Negative) 06/14/25 Range/Units 01:15 WBC 13.01 H (4.4-10.8) 10^3/uL RBC 3.75 L (4.36-5.78) 10^6/uL Hgb 10.4 L (13.5-17.5) g/dL Hct 32.8 L (40.0-50.0) % MCV 88 (80-95) fL MCH 27.7 (27.0-33.0) pg MCHC 31.7 L (32.0-36.0) % RDW 20.6 H (11.8-14.1) % Plt Count 108 L (130-400) 10^3/uL MPV 10.4 (8.0-11.0) fL Immature Gran % 1.1 % Neutrophils % 95.1 % Lymphocytes % 1.0 % Monocytes % 2.3 % Eosinophils % 0.0 % Basophils % 0.5 % Nucleated RBC % 0.0 (0.0-0.3) % Absolute Neutrophils 12.37 H (1.2-6.7) 10^3/uL Absolute Lymphocytes 0.13 L (1.2-3.4) 10^3/uL Absolute Monocytes 0.30 (0.1-0.8) 10^3/uL Absolute Eosinophils 0.00 (0.0-0.7) 10^3/uL Absolute Basophils 0.07 (0.0-0.2) 10^3/uL RBC Morphology See Below Poikilocytosis 1+ Anisocytosis 1+ PT 9.9 (9.1-11.1) sec INR 1.0 (0.9-1.1) APTT 33.2 H (20.6-30.2) sec D-Dimer VBG Lactate (<or=2.0) mmol/L Sodium 139 (136-145) mmol/L Potassium 3.8 (3.5-5.1) mmol/L Chloride 102 (98-107) mmol/L Carbon Dioxide 23.3 (21.0-32.0) mmol/L Anion Gap 13.7 H (3-11) mmol/L BUN 21 H (7-18) mg/dL Creatinine 1.7 H (0.70-1.30) mg/dL Est GFR (CKD-EPI 2020) 39.26 (mL/min/1.73m2) Glucose 151 H (74-106) mg/dL Calcium 9.1 (8.5-10.1) mg/dL Magnesium 1.4 L (1.8-2.4) mg/dL Total Bilirubin 1.3 H (0.2-1.0) mg/dL AST 34 (15-37) U/L ALT 16 (16-63) U/L Alkaline Phosphatase 189 H (46-116) U/L Troponin I 86 H* (<or=76) ng/L NT-Pro-B Natriuret Pep 2675 H (<300) pg/mL Total Protein 6.5 (6.4-8.2) g/dL Albumin 1.9 L (3.4-5.0) g/dL Lipase 48 (<78) U/L TSH 1.12 (0.36-3.74) uIU/mL Urine Color (Yellow) Urine Clarity (Clear) Urine pH (5-8) Ur Specific [place] (1.005-1.025) Urine Protein (Neg-Trace) mg/dL Urine Ketones (Negative) mg/dL Urine Blood (Negative) Urine Nitrite (Negative) Urine Bilirubin (Negative) Urine Urobilinogen (Up to 0.2) mg/dL Ur Leukocyte Esterase (Negative) Urine RBC (0-2) HPF Urine WBC (0-5) HPF Ur Epithelial Cells (Negative) HPF Urine Crystals (Negative) HPF Urine Bacteria (Negative) HPF Urine Casts (Negative) LPF Urine Mucus (Negative) Ur Culture Indicated? Urine Glucose (Negative) mg/dL COVID-19 Source SARS-CoV-2 (PCR) (Negative) Influenza Type A (PCR) (Negative) Influenza Type B (PCR) (Negative) RSV (PCR) (Negative) 06/14/25 03:35 Urine Culture - Pending Urine - Voided 06/14/25 02:25 Blood Culture - Pending Blood 06/14/25 02:23 Blood Culture - Pending Blood Intake and Output - 24 Hour Total 06/14/25 00:50 thru 06/14/25 04:14 Intake Total 1400 Output Total 600 Balance 800 Weight 112.2 kg Intake: IV 1400 Output: Urine 600 Falls Risk Assessment History of Falls Previous History 06/14/25 01:09 Contributing Factors Unstable,Impairments 06/14/25 01:09 Ambulatory Aids Uses ambulatory device + 06/14/25 01:09 Tubes/Lines With any additional score 06/14/25 01:09 Cognition No cognitive impairment 06/14/25 01:09 Fall Total Score 71 06/14/25 01:09 Level of Risk High Risk 06/14/25 01:09 Notes 06/14/25 03:56 Nursing Notes by Mary Jane Peralta Nursing Note:[id number] diltiazem not given/acknowledged at this time due to provider verbal cancellation due to HR and rhythm at time. Initialized on 06/14/25 03:56 - END OF NOTE v v v v v v v v v Sending and/or Receiving Nurses: Please use comment section below to note any information pertinent to the patient hand-off not included above. Information / Comments: No further questions. Report received from: Cristiana Alex RN
--- NOTE | 2025-06-14 06:49 | W.PM.HP.N ---
Date of service: 06/14/25 Time of Service: 06:00 Assessment and Plan Assessment and plan (1) Sepsis: Status: Acute Assessment and plan: IV Zosyn + Zyvox Blood and urine cultures pending Trend lactate (initial 3.8 ? 3.2) Monitor for hemodynamic changes (2) Non-ST elevated myocardial infarction (non-STEMI): Status: Acute Assessment and plan: Demand ischemia Troponin trending up (86 ? 130) Aspirin 325 mg given Echocardiogram planned Avoid heparin per cardiology (3) Pneumonia: Status: Acute Assessment and plan: As above (4) Atrial tachycardia: Status: Acute Assessment and plan: S/p IV diltiazem 20 mg with improved rate Cardiology consulted ? no further rate control or anticoagulation for now Continuous telemetry (5) Hypomagnesemia: Status: Acute Assessment and plan: IV magnesium replacement (6) Type 2 diabetes mellitus: Status: Acute Assessment and plan: SSI FS q6h (7) Chronic kidney disease, stage 3: Status: Acute Assessment and plan: Monitor renal function and CBC Avoid nephrotoxins History of Present Illness History of Present Illness Chief Complaint: FAll Narrative: 84-year-old male with history of colorectal cancer on chemotherapy, CKD stage 3, COPD (not on daytime oxygen), SAMMI on CPAP, CVA, diabetes, hypertension, hyperlipidemia, gout, and venous stasis dermatitis presents via EMS after a fall. He reports 3 days of progressive weakness, lightheadedness, and shortness of breath worse in the morning and improving throughout the day. He slid from his chair to the floor without head strike or loss of consciousness and was unable to get up. Denies pain, chest pain, or dyspnea at rest. Reports prior transient left-sided chest pain last week that resolved. EMS found HR in the 150s with atrial fibrillation; he received ~500 mL IV fluids with improvement in rate to 80s. No fever, cough, nausea, vomiting, abdominal pain, dysuria, or focal neurologic symptoms. In the ED patient received IV fluids: 500 mL normal saline given by EMS prior to arrival; IV diltiazem 20 mg, resulting in rate control (HR ~ 80s). Antibiotics: Started on Zosyn and Zyvox for suspected pneumonia/sepsis. Labs: WBC 13.2 K/?L Lactate 3.8 ? 3.2 mmol/L after fluids Troponin 86 ? 130 ng/L (suggesting demand ischemia) Magnesium low; repleted IV Creatinine elevated, consistent with baseline CKD Imaging: Chest X-ray: Right lower-lobe pneumonia CT head/cervical spine: No acute findings CT chest/abdomen/pelvis: No traumatic injury Cardiology consulted: Interpreted rhythm as possible multifocal atrial tachycardia vs paroxysmal Afib; recommended no anticoagulation at this time. Patient is admitted to the medical floor for futher testing and treatment. Patient is a full code. Patient is in agreement with plan of care. Review of Systems Narrative: Constitutional: +Weakness, -Fever, -Chills Cardiovascular: +Palpitations, prior transient chest pain, -Edema Respiratory: +Shortness of breath on exertion, -Cough GI: -Abdominal pain, -Nausea, -Vomiting : -Dysuria, -Hematuria Neuro: -Headache, -Syncope, -Numbness, -Tingling Skin: +Chronic venous stasis dermatitis Other systems: Negative except as noted in HPI PFSH All Active Problems (Updated 06/14/25 @ 07:12 by Mami Solomon NP) Non-ST elevated myocardial infarction (non-STEMI) (Acute) Atrial tachycardia (Acute) Pneumonia (Acute) Sepsis (Acute) Cystic kidney disease, acquired (Acute) Edema of both lower extremities (Acute) Osteoarthritis (Chronic) Megaloblastic anemia due to B12 deficiency (Acute) Restrictive lung disease (Acute) Cyst of kidney, acquired (Acute) Primary malignant colorectal neoplasm (Acute) Bradycardia (Acute) Barretts esophagus (Acute) Hypomagnesemia (Acute) Generalized anxiety disorder (Acute) Neuropathy due to type 2 diabetes mellitus (Acute) Type 2 diabetes mellitus (Acute) Chronic kidney disease, stage 3 (Acute) Essential hypertension (Acute) Obstructive sleep apnea syndrome (Chronic) Iron deficiency anemia (Acute) Screening for malignant neoplasm of skin (Acute) Abnormal skin growth (Acute) Actinic keratoses (Acute) Seborrheic keratoses (Acute) Disorder of the skin and subcutaneous tissue, unspecified (Acute) Leg wound, right (Acute) Umbilical hernia (Acute) Hyperlipidemia (Chronic) Hypertension (Chronic) Obesity (Chronic) Sleep apnea (Chronic) COPD (chronic obstructive pulmonary disease) (Chronic) GERD (gastroesophageal reflux disease) (Chronic) Gout (Chronic) Stasis dermatitis of both legs (Chronic) Anemia (Acute) Diabetes mellitus type 2 in obese (Acute) Sinus bradycardia (Acute) 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) (Acute) Cellulitis of leg, right (Acute) Chronic venous stasis dermatitis of both lower extremities (Acute) COPD (chronic obstructive pulmonary disease) (Chronic) DVT prophylaxis (Acute) Ulcer of right lower leg (Acute) Venous stasis (Acute) Venous stasis ulcer of ankle limited to breakdown of skin (Acute) Leg length discrepancy (Acute 02/09/18) Primary osteoarthritis of right knee (Acute 11/01/17) Mitral valve regurgitation (Chronic) CVA (cerebral vascular accident) (Chronic) CKD stage 3 due to type 2 diabetes mellitus (Acute) Diabetic neuropathy (Acute) ORVILLE positive (Acute) Onychomycosis (Acute) Medical History (Updated 06/14/25 @ 07:12 by Mami Solomon NP) Gout Severe obesity Tinnitus Hernia of anterior abdominal wall Family history of malignant neoplasm of prostate Proteinuria Idiopathic stabbing headache Antinuclear factor positive History of CVA (cerebrovascular accident) without residual deficits Kidney mass COVID Cutaneous abscess of abdominal wall Slurred speech Weakness Diabetic ulcer of right lower leg associated with diabetes mellitus due to underlying condition, with fat layer exposed Renal insufficiency Cirrhosis Cellulitis Hx TIA/stroke w/o resid SAMMI on CPAP HLD (hyperlipidemia) HTN (hypertension) Venous stasis ulcer right lateral calf Acute kidney injury (nontraumatic) Scalp hematoma Chest wall contusion Syncope Diabetes mellitus Community acquired pneumonia With hypoxia and bronchospasm. Surgical History History of surgery Debridement of right leg wound with Apligraf History of cholecystectomy H/O rectal sphincterotomy History of appendectomy History of total right hip arthroplasty Family History Father , age 63 Heart disease Stroke Hypertension Mother , age 101 No problems noted. Brother Prostate cancer Other Neoplasm Social History Smoking/Tobacco Use Status: Former Tobacco Use Quit Date: 03/06/84 Smoking risk assessment performed?: Yes Alcohol Intake: never Drug use: Never Substance use type: does not use Housing: house Current gender identity: male Do you feel safe at home: Yes Do you feel safe in your relationship?: Yes Meds Allergies and Home Medications Allergies Allergy/AdvReac Type Severity Reaction Status Date / Time cephalexin AdvReac Intermediate genitourinary Verified 06/14/25 01:35 edema Home Medications ?Medication ?Instructions ?Recorded ?Confirmed ?Type citalopram 20 mg tablet 10 mg PO DAILY 12/02/12 06/14/25 History atorvastatin 40 mg tablet (Lipitor) 40 mg PO DAILY ##0 03/28/15 06/14/25 Rx Diabetic Shoe W Lift 11/01/17 Clinic Diabetic Shoe W Lift u ##1 11/01/17 Clinic allopurinol 100 mg tablet 100 mg PO DAILY 03/13/19 06/14/25 History clopidogrel 75 mg tablet 75 mg PO DAILY 03/13/19 06/14/25 History cyanocobalamin (vitamin B-12) 1,000 mcg PO BID 03/13/19 06/14/25 History 1,000 mcg tablet (Vitamin B-12) fluticasone 500 mcg-salmeterol 50 1 inh inhalation BID 03/13/19 06/14/25 History mcg/dose blistr powdr for inhalation (Advair Diskus) metformin 500 mg tablet 1,000 mg PO BID 03/13/19 06/14/25 History metolazone 2.5 mg tablet 2.5 mg PO .TWICE WEEKLY 03/13/19 06/14/25 History lisinopril 40 mg tablet 40 mg PO DAILY 03/10/21 06/14/25 History amlodipine 5 mg tablet 10 mg PO HS 02/13/22 06/14/25 History cholecalciferol (vitamin D3) 50 50 mcg PO DAILY 02/13/22 06/14/25 History mcg (2,000 unit) capsule ferrous sulfate 325 mg (65 mg 325 mg PO DAILY 02/13/22 06/14/25 History iron) tablet furosemide 20 mg tablet 40 mg PO DAILY 02/13/22 06/14/25 History zinc acetate 50 mg (zinc) capsule 50 mg PO DAILY 02/13/22 06/14/25 History (Galzin) pantoprazole 40 mg tablet,delayed 40 mg PO DAILY AM PRN 10/11/23 06/14/25 History release clonidine HCl 0.3 mg tablet 0.2 mg PO BID 08/24/24 06/14/25 History acetaminophen 325 mg tablet 650 mg PO Q6H PRN 11/07/24 06/14/25 History albuterol sulfate 2.5 mg/3 mL 2.5 mg inhalation Q2H PRN 11/07/24 06/14/25 History (0.083 %) solution for nebulization clonidine HCl 0.3 mg tablet 0.3 mg PO BID 11/07/24 06/14/25 History insulin degludec 100 unit/mL (3 25 unit subcut DAILY 11/07/24 06/14/25 History mL) subcutaneous pen (Tresiba FlexTouch U-100 insulin) semaglutide 1 mg/dose (4 mg/3 mL) 0.5 mg subcut QWEEK 11/07/24 06/14/25 History subcutaneous pen injector (Ozempic) umeclidinium 62.5 mcg/actuation 1 inh inhalation DAILY 11/07/24 06/14/25 History blister powder for inhalation (Incruse Ellipta) valacyclovir 500 mg tablet 500 mg PO TID 11/07/24 06/14/25 History ketoconazole 2 % topical cream 1 applic topical DAILY #120 grams 12/28/24 06/14/25 Rx fluorouracil 5 % topical cream 1 applic topical BID 05/18/25 06/14/25 History ondansetron HCl 8 mg tablet 8 mg PO Q8H 05/18/25 06/14/25 History Exam Narrative Exam Narrative: General: Alert, no acute distress. Skin: Warm, well perfused. Small right elbow skin tear; mild left knee ecchymosis; bilateral venous stasis dermatitis. HEENT: Normocephalic, atraumatic, PERRL, EOMI, moist mucous membranes. Neck: Supple, trachea midline, full ROM. Cardiac: Irregularly irregular rhythm, tachycardic; no murmurs, rubs, or gallops. Lungs: Clear to auscultation bilaterally, no wheezing or crackles. Abdomen: Soft, non-tender, non-distended. Back: No spinal tenderness or step-offs. Extremities: No deformities, full ROM, 2+ peripheral pulses. Neuro: Alert and oriented ?3, strength and sensation grossly intact. Results Labs 06/14/25 01:15 06/14/25 01:15 Labs: Laboratory Results - last 24 hr 06/14/25 06/14/25 06/14/25 01:15 01:29 01:48 WBC 13.01 H RBC 3.75 L Hgb 10.4 L Hct 32.8 L MCV 88 MCH 27.7 MCHC 31.7 L RDW 20.6 H Plt Count 108 L MPV 10.4 Immature Gran % 1.1 Neutrophils % 95.1 Lymphocytes % 1.0 Monocytes % 2.3 Eosinophils % 0.0 Basophils % 0.5 Nucleated RBC % 0.0 Absolute Neutrophils 12.37 H Absolute Lymphocytes 0.13 L Absolute Monocytes 0.30 Absolute Eosinophils 0.00 Absolute Basophils 0.07 RBC Morphology See Below Poikilocytosis 1+ Anisocytosis 1+ PT 9.9 INR 1.0 APTT 33.2 H D-Dimer Cancelled VBG Lactate Sodium 139 Potassium 3.8 Chloride 102 Carbon Dioxide 23.3 Anion Gap 13.7 H BUN 21 H Creatinine 1.7 H Est GFR (CKD-EPI 2020) 39.26 Glucose 151 H Calcium 9.1 Magnesium 1.4 L Total Bilirubin 1.3 H AST 34 ALT 16 Alkaline Phosphatase 189 H Troponin I 86 H* NT-Pro-B Natriuret Pep 2675 H Total Protein 6.5 Albumin 1.9 L Lipase 48 TSH 1.12 Urine Color Urine Clarity Urine pH Ur Specific [place] Urine Protein Urine Ketones Urine Blood Urine Nitrite Urine Bilirubin Urine Urobilinogen Ur Leukocyte Esterase Urine RBC Urine WBC Ur Epithelial Cells Urine Crystals Urine Bacteria Urine Casts Urine Mucus Ur Culture Indicated? Urine Glucose COVID-19 Source Nasopharynx SARS-CoV-2 (PCR) Negative Influenza Type A (PCR) Negative Influenza Type B (PCR) Negative RSV (PCR) Negative 06/14/25 06/14/25 06/14/25 02:25 02:57 03:35 WBC RBC Hgb Hct MCV MCH MCHC RDW Plt Count MPV Immature Gran % Neutrophils % Lymphocytes % Monocytes % Eosinophils % Basophils % Nucleated RBC % Absolute Neutrophils Absolute Lymphocytes Absolute Monocytes Absolute Eosinophils Absolute Basophils RBC Morphology Poikilocytosis Anisocytosis PT INR APTT D-Dimer VBG Lactate 3.8 H* Sodium Potassium Chloride Carbon Dioxide Anion Gap BUN Creatinine Est GFR (CKD-EPI 2020) Glucose Calcium Magnesium Total Bilirubin AST ALT Alkaline Phosphatase Troponin I 104 H* NT-Pro-B Natriuret Pep Total Protein Albumin Lipase TSH Urine Color Yellow Urine Clarity Sl Cloudy Urine pH 5.0 Ur Specific [place] 1.020 Urine Protein 30 H Urine Ketones Negative Urine Blood Negative Urine Nitrite Negative Urine Bilirubin Negative Urine Urobilinogen 0.2 Ur Leukocyte Esterase Negative Urine RBC Negative Urine WBC Negative Ur Epithelial Cells Negative Urine Crystals Moderate Amorphous Urine Bacteria Few Urine Casts 0-2 Fine Granular Urine Mucus Trace Ur Culture Indicated? C&S Done As Ordered Urine Glucose Negative COVID-19 Source SARS-CoV-2 (PCR) Influenza Type A (PCR) Influenza Type B (PCR) RSV (PCR) 06/14/25 03:38 WBC RBC Hgb Hct MCV MCH MCHC RDW Plt Count MPV Immature Gran % Neutrophils % Lymphocytes % Monocytes % Eosinophils % Basophils % Nucleated RBC % Absolute Neutrophils Absolute Lymphocytes Absolute Monocytes Absolute Eosinophils Absolute Basophils RBC Morphology Poikilocytosis Anisocytosis PT INR APTT D-Dimer VBG Lactate 3.2 H* Sodium Potassium Chloride Carbon Dioxide Anion Gap BUN Creatinine Est GFR (CKD-EPI 2020) Glucose Calcium Magnesium Total Bilirubin AST ALT Alkaline Phosphatase Troponin I 130 H* NT-Pro-B Natriuret Pep Total Protein Albumin Lipase TSH Urine Color Urine Clarity Urine pH Ur Specific [place] Urine Protein Urine Ketones Urine Blood Urine Nitrite Urine Bilirubin Urine Urobilinogen Ur Leukocyte Esterase Urine RBC Urine WBC Ur Epithelial Cells Urine Crystals Urine Bacteria Urine Casts Urine Mucus Ur Culture Indicated? Urine Glucose COVID-19 Source SARS-CoV-2 (PCR) Influenza Type A (PCR) Influenza Type B (PCR) RSV (PCR) Last Vital Signs Temp 36.6 C 06/14/25 06:43 Pulse 64 06/14/25 06:43 Resp 15 06/14/25 06:43 BP 155/77 H 06/14/25 06:43 Pulse Ox 90 L 06/14/25 06:43 Time Spent Time spent with Patient: 55-74 minutes Time was spent: preparing to see the patient(eg.review tests), obtaining and/or reviewing separately otained hiistory, ordering medications,tests, procedures, referring, communicating with other health rn palliative care, indepentently interpreting results, counseling the patient and care coordination
--- NOTE | 2025-06-14 07:50 | NUR.NOTE ---
Nursing Note: Transfer patient to ICU. Gave report to the receiving nurse at ICU.
[2025-06-14] MEDS: dilTIAZem 25 MG/5 ML VIAL 20 MG IVP (07:55)
--- NOTE | 2025-06-14 07:55 | INITIAL_ITS ---
Date of service: 06/14/25 Time of Service: 15:44 Care Management Initial Assmt Initial Assessment Reason for Hospitalization: Pneumonia, atrial fibrillation, hpomagnesemia Functional Status/Living Situation Patient Presentation: Dionna maress Andres was lying in bed and awake when CM met with him. He has had many family members visit with him today. Andres presented to the ED after a fall. Per ED documentation, Andres states that he does not think he injured himself in the fall and wound not have come to the ED for that reason. Andres shares today that he does not typically feel weak or unsteady but has the last few days. He was initially admitted to the medical-surgical floor and later transferred to the ICU due to tachycardia. An echo has been ordered. CM has requested both physical therapy and palliative care consults. Andres resides in [place] with his , Mami. He reports being fully independent at baseline, including managing his own activities of daily living and driving. He has had multiple family members visit him during his hospitalization. He shared that he has one son, one daughter, seven grandchildren, and fourteen great- grandchildren. Andres also noted that he has previously received home health services and would be open to reinitiating those services after discharge. While Andres lugo is not actively involved in formal community support programs, he is aware of the [facility] and has recently begun utilizing their services. An advance directive is on file. CM reviewed the document with Andres, who confirmed it accurately reflects his current wishes. CM will continue to follow. 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 Advance Directives Advance Directives: Do you have an Advance Directive: Y , 16:23 AD On File at [facility]: Y 09/21/24, 12:51 Date Asked 05/10/25 05/10/25, 09:57 AD Date Reviewed 06/14/25 Today, 07:09 COLST On File at [facility] COLST Date Scanned Code Status Resuscitation Status Full Code Portal Pt does not currently have a portal and education provided: Yes Insurance Coverage/Financial Issues Insurance: Medicare Part A & B - [id number] [facility] Supplemental - [id number] Care Team Visit Care Team Role Provider Type Joaquín Felix MD MD [facility] STAFF PHYSICIAN Soledad Slaughter MD Primary Care Provider [facility] STAFF PHYSICIAN Chhaya Quijano MD Emergency Provider [facility] STAFF PHYSICIAN Anand Jara Admit Provider [facility] STAFF PHYSICIAN Attending Provider Discharge Potential Discharge Needs: PCP F/U Appt Anticipated Barriers to Discharge: None Identified Patient/Family Education Needs: Review discharge instructions, discuss Ask Me Three Transportation: Private vehicle Plan: Anticipate Andres will be discharged home once medically ready with new HH services as indicated. It is recommended that Andres follow up with community providers, oncologist, and discharge plan of care. Andres will be discharged home via private vehicle. CM will continue to follow. Social Determinants of Health Screening Will the Patient Participate in the Screening?: Declined to provide PFSH All Active Problems (Updated 06/14/25 @ 07:12 by Mami Solomon NP) Non-ST elevated myocardial infarction (non-STEMI) (Acute) Atrial tachycardia (Acute) Pneumonia (Acute) Sepsis (Acute) Cystic kidney disease, acquired (Acute) Edema of both lower extremities (Acute) Osteoarthritis (Chronic) Megaloblastic anemia due to B12 deficiency (Acute) Restrictive lung disease (Acute) Cyst of kidney, acquired (Acute) Primary malignant colorectal neoplasm (Acute) Bradycardia (Acute) Barretts esophagus (Acute) Hypomagnesemia (Acute) Generalized anxiety disorder (Acute) Neuropathy due to type 2 diabetes mellitus (Acute) Type 2 diabetes mellitus (Acute) Chronic kidney disease, stage 3 (Acute) Essential hypertension (Acute) Obstructive sleep apnea syndrome (Chronic) Iron deficiency anemia (Acute) Screening for malignant neoplasm of skin (Acute) Abnormal skin growth (Acute) Actinic keratoses (Acute) Seborrheic keratoses (Acute) Disorder of the skin and subcutaneous tissue, unspecified (Acute) Leg wound, right (Acute) Umbilical hernia (Acute) Hyperlipidemia (Chronic) Hypertension (Chronic) Obesity (Chronic) Sleep apnea (Chronic) COPD (chronic obstructive pulmonary disease) (Chronic) GERD (gastroesophageal reflux disease) (Chronic) Gout (Chronic) Stasis dermatitis of both legs (Chronic) Anemia (Acute) Diabetes mellitus type 2 in obese (Acute) Sinus bradycardia (Acute) 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) (Acute) Cellulitis of leg, right (Acute) Chronic venous stasis dermatitis of both lower extremities (Acute) COPD (chronic obstructive pulmonary disease) (Chronic) DVT prophylaxis (Acute) Ulcer of right lower leg (Acute) Venous stasis (Acute) Venous stasis ulcer of ankle limited to breakdown of skin (Acute) Leg length discrepancy (Acute 02/09/18) Primary osteoarthritis of right knee (Acute 11/01/17) Mitral valve regurgitation (Chronic) CVA (cerebral vascular accident) (Chronic) CKD stage 3 due to type 2 diabetes mellitus (Acute) Diabetic neuropathy (Acute) ORVILLE positive (Acute) Onychomycosis (Acute) Medical History (Updated 06/14/25 @ 07:12 by Mami Solomon NP) Gout Severe obesity Tinnitus Hernia of anterior abdominal wall Family history of malignant neoplasm of prostate Proteinuria Idiopathic stabbing headache Antinuclear factor positive History of CVA (cerebrovascular accident) without residual deficits Kidney mass COVID Cutaneous abscess of abdominal wall Slurred speech Weakness Diabetic ulcer of right lower leg associated with diabetes mellitus due to underlying condition, with fat layer exposed Renal insufficiency Cirrhosis Cellulitis Hx TIA/stroke w/o resid SAMMI on CPAP HLD (hyperlipidemia) HTN (hypertension) Venous stasis ulcer right lateral calf Acute kidney injury (nontraumatic) Scalp hematoma Chest wall contusion Syncope Diabetes mellitus Community acquired pneumonia With hypoxia and bronchospasm. Surgical History History of surgery Debridement of right leg wound with Apligraf History of cholecystectomy H/O rectal sphincterotomy History of appendectomy History of total right hip arthroplasty Family History Father , age 63 Heart disease Stroke Hypertension Mother , age 101 No problems noted. Brother Prostate cancer Other Neoplasm Social History Smoking/Tobacco Use Status: Former Tobacco Use Quit Date: 03/06/84 Smoking risk assessment performed?: Yes Alcohol Intake: never Drug use: Never Substance use type: does not use Housing: house Current gender identity: male Do you feel safe at home: Yes Do you feel safe in your relationship?: Yes Readmission Within the Past 30 Days Yes or No: No
[2025-06-14] MEDS: Enoxaparin 40 MG/0.4 ML SYR SC (08:00)
[2025-06-14] MEDS: Allopurinol 100 MG TAB PO (08:12)
[2025-06-14] MEDS: Lisinopril 20 MG TAB 40 MG PO (08:12)
[2025-06-14] MEDS: Cyanocobalamin 500 MCG TAB 1000 MCG PO ×2 (08:12→19:23)
[2025-06-14] MEDS: Ferrous Sulfate 325 MG TAB PO (08:12)
[2025-06-14] MEDS: Cholecalciferol (Vitamin D3) 1,000 UNIT TAB 2000 UNITS PO (08:13)
[2025-06-14] MEDS: dilTIAZem 125 MG in Normal Saline 100 ML 10 MG IV (09:28)
[2025-06-14] MEDS: cefTRIAXone 1 GM/50 ML BAG IVPB (09:31)
--- NOTE | 2025-06-14 10:25 | W.PC.ACHO ---
Registration Status: ADM IN Primary Language: Preferred Language: Korean ED Information & Data Chief Complaint Fall/Non TraumaCriteria 06/14/25 01:47 Triage Note BIBEMS, fall at home, no LOC 06/14/25 01:04 , pt states legs just gave out. weakness, uses cane baseline. SOB w/ exertion, HR 140-150s afib, no known afib. HR 80s on transport. denies chest pain. got ~ 500ml. 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 due to underlying condition, with fat layer exposed Renal insufficiency Cirrhosis Cellulitis Hx TIA/stroke w/o resid SAMMI on CPAP HLD (hyperlipidemia) HTN (hypertension) Venous stasis ulcer Acute kidney injury (nontraumatic) Scalp hematoma Chest wall contusion Syncope Diabetes mellitus Community acquired pneumonia (Last Reviewed 12/28/24 @ 10:39 by Yanet Francis DPM) History of surgery History of cholecystectomy H/O rectal sphincterotomy History of appendectomy History of total right hip arthroplasty Most Recent Vital Signs Temperature 36.8 C 06/14/25 07:42 Temperature Source Temporal Artery Scan 06/14/25 07:42 Pulse 147 H 06/14/25 09:33 Pulse Rhythm Irregular 06/14/25 06:44 Pulse 143 H 06/14/25 09:30 Respiratory Rate 25 H 06/14/25 09:30 Respiratory Effort Incrsd Work of Breathing 06/14/25 07:42 Respiratory Depth Normal 06/14/25 07:42 Respiratory Pattern Tachypnea 06/14/25 07:42 Blood Pressure 151/74 H 06/14/25 09:01 Blood Pressure Mean 94 06/14/25 09:01 Blood Pressure Position Supine 06/14/25 07:42 Pulse Oximetry 91 L 06/14/25 08:15 Oxygen Delivery Method Room Air 06/14/25 07:42 Oxygen Flow Rate 0 06/14/25 07:42 Pain Level 0 06/14/25 07:42 Allergies cephalexin Adverse Reaction (Intermediate, Verified 06/14/25 01:35) genitourinary edema Pt denies allergy to medications Precautions Isolation Fall precaution 06/14/25 01:09 Active Medications Generic Name Dose Route Start Last Admin Trade Name Sylvia PRN Reason Stop Dose Admin Allopurinol 100 mg 06/14/25 08:30 06/14/25 08:12 Allopurinol 100 Mg Tab PO 100 mg DAILY HENRY Administration Cholecalciferol 2,000 units 06/14/25 08:30 06/14/25 08:13 Cholecalciferol (Vitamin D3) 1,000 Unit Tab PO 2,000 units DAILY HENRY Administration Cyanocobalamin 1,000 mcg 06/14/25 08:30 06/14/25 08:12 Cyanocobalamin 500 Mcg Tab PO 1,000 mcg BID HENRY Administration Enoxaparin Sodium 40 mg 06/14/25 08:30 06/14/25 08:00 Enoxaparin 40 Mg/0.4 Ml Syr SC 40 mg DAILY HENRY Administration Ceftriaxone Sodium/Dextrose 1 gm in 50 mls @ 100 mls/hr 06/14/25 08:30 06/14/25 09:31 Rocephin IVPB 100 mls/hr Q24H HENRY Administration Diltiazem HCl 125 mg/ Sodium 125 mls @ 0 mls/hr 06/14/25 08:45 06/14/25 09:40 Chloride IV 15 mg/hr INFUSION HENRY 15 mls/hr Protocol Titration Per Protocol Iohexol 100 ml 06/14/25 03:00 06/14/25 02:59 Omnipaque 350 Mg/Ml 100 Ml Btl IJ 07/14/25 23:59 85 ml DIRECTED HENRY Administration Lisinopril 40 mg 06/14/25 08:30 06/14/25 08:12 Lisinopril 20 Mg Tab PO 40 mg DAILY HENRY Administration Sodium Chloride 50 ml 06/14/25 03:00 06/14/25 02:59 Normal Saline - Diluent 50 Ml Vial IJ 50 ml DIRECTED HENRY Administration Sodium Chloride 0 ml 06/14/25 02:58 06/14/25 07:57 Normal Saline Flush 10 Ml Syr IVP 40 ml PRN PRN Administration IV IV Catheter Type [Left Peripheral IV Antecubital] IV Catheter Gauge [Left 20 Antecubital] Diet Orders Category Date Time Status Diabetes Consistent CHO/Heart Healthy [DIET] Nutrition 06/14/25 Breakfast Active Diagnostics 06/14/25 06/14/25 06/14/25 Range/Units 03:38 03:35 02:57 WBC (4.4-10.8) 10^3/uL RBC (4.36-5.78) 10^6/uL Hgb (13.5-17.5) g/dL Hct (40.0-50.0) % MCV (80-95) fL MCH (27.0-33.0) pg MCHC (32.0-36.0) % RDW (11.8-14.1) % Plt Count (130-400) 10^3/uL MPV (8.0-11.0) fL Immature Gran % % Neutrophils % % Lymphocytes % % Monocytes % % Eosinophils % % Basophils % % Nucleated RBC % (0.0-0.3) % Absolute Neutrophils (1.2-6.7) 10^3/uL Absolute Lymphocytes (1.2-3.4) 10^3/uL Absolute Monocytes (0.1-0.8) 10^3/uL Absolute Eosinophils (0.0-0.7) 10^3/uL Absolute Basophils (0.0-0.2) 10^3/uL RBC Morphology Poikilocytosis Anisocytosis PT (9.1-11.1) sec INR (0.9-1.1) APTT (20.6-30.2) sec D-Dimer VBG Lactate 3.2 H* 3.8 H* (<or=2.0) mmol/L Sodium (136-145) mmol/L Potassium (3.5-5.1) mmol/L Chloride (98-107) mmol/L Carbon Dioxide (21.0-32.0) mmol/L Anion Gap (3-11) mmol/L BUN (7-18) mg/dL Creatinine (0.70-1.30) mg/dL Est GFR (CKD-EPI 2020) (mL/min/1.73m2) Glucose (74-106) mg/dL Calcium (8.5-10.1) mg/dL Magnesium (1.8-2.4) mg/dL Total Bilirubin (0.2-1.0) mg/dL AST (15-37) U/L ALT (16-63) U/L Alkaline Phosphatase (46-116) U/L Troponin I 130 H* (<or=76) ng/L NT-Pro-B Natriuret Pep (<300) pg/mL Total Protein (6.4-8.2) g/dL Albumin (3.4-5.0) g/dL Lipase (<78) U/L TSH (0.36-3.74) uIU/mL Urine Color Yellow (Yellow) Urine Clarity Sl Cloudy (Clear) Urine pH 5.0 (5-8) Ur Specific [place] 1.020 (1.005-1.025) Urine Protein 30 H (Neg-Trace) mg/dL Urine Ketones Negative (Negative) mg/dL Urine Blood Negative (Negative) Urine Nitrite Negative (Negative) Urine Bilirubin Negative (Negative) Urine Urobilinogen 0.2 (Up to 0.2) mg/dL Ur Leukocyte Esterase Negative (Negative) Urine RBC Negative (0-2) HPF Urine WBC Negative (0-5) HPF Ur Epithelial Cells Negative (Negative) HPF Urine Crystals Moderate Amorphous (Negative) HPF Urine Bacteria Few (Negative) HPF Urine Casts 0-2 Fine Granular (Negative) LPF Urine Mucus Trace (Negative) Ur Culture Indicated? C&S Done As Ordered Urine Glucose Negative (Negative) mg/dL COVID-19 Source SARS-CoV-2 (PCR) (Negative) Influenza Type A (PCR) (Negative) Influenza Type B (PCR) (Negative) RSV (PCR) (Negative) 06/14/25 06/14/25 06/14/25 Range/Units 02:25 01:48 01:29 WBC (4.4-10.8) 10^3/uL RBC (4.36-5.78) 10^6/uL Hgb (13.5-17.5) g/dL Hct (40.0-50.0) % MCV (80-95) fL MCH (27.0-33.0) pg MCHC (32.0-36.0) % RDW (11.8-14.1) % Plt Count (130-400) 10^3/uL MPV (8.0-11.0) fL Immature Gran % % Neutrophils % % Lymphocytes % % Monocytes % % Eosinophils % % Basophils % % Nucleated RBC % (0.0-0.3) % Absolute Neutrophils (1.2-6.7) 10^3/uL Absolute Lymphocytes (1.2-3.4) 10^3/uL Absolute Monocytes (0.1-0.8) 10^3/uL Absolute Eosinophils (0.0-0.7) 10^3/uL Absolute Basophils (0.0-0.2) 10^3/uL RBC Morphology Poikilocytosis Anisocytosis PT (9.1-11.1) sec INR (0.9-1.1) APTT (20.6-30.2) sec D-Dimer Cancelled VBG Lactate (<or=2.0) mmol/L Sodium (136-145) mmol/L Potassium (3.5-5.1) mmol/L Chloride (98-107) mmol/L Carbon Dioxide (21.0-32.0) mmol/L Anion Gap (3-11) mmol/L BUN (7-18) mg/dL Creatinine (0.70-1.30) mg/dL Est GFR (CKD-EPI 2020) (mL/min/1.73m2) Glucose (74-106) mg/dL Calcium (8.5-10.1) mg/dL Magnesium (1.8-2.4) mg/dL Total Bilirubin (0.2-1.0) mg/dL AST (15-37) U/L ALT (16-63) U/L Alkaline Phosphatase (46-116) U/L Troponin I 104 H* (<or=76) ng/L NT-Pro-B Natriuret Pep (<300) pg/mL Total Protein (6.4-8.2) g/dL Albumin (3.4-5.0) g/dL Lipase (<78) U/L TSH (0.36-3.74) uIU/mL Urine Color (Yellow) Urine Clarity (Clear) Urine pH (5-8) Ur Specific [place] (1.005-1.025) Urine Protein (Neg-Trace) mg/dL Urine Ketones (Negative) mg/dL Urine Blood (Negative) Urine Nitrite (Negative) Urine Bilirubin (Negative) Urine Urobilinogen (Up to 0.2) mg/dL Ur Leukocyte Esterase (Negative) Urine RBC (0-2) HPF Urine WBC (0-5) HPF Ur Epithelial Cells (Negative) HPF Urine Crystals (Negative) HPF Urine Bacteria (Negative) HPF Urine Casts (Negative) LPF Urine Mucus (Negative) Ur Culture Indicated? Urine Glucose (Negative) mg/dL COVID-19 Source Nasopharynx SARS-CoV-2 (PCR) Negative (Negative) Influenza Type A (PCR) Negative (Negative) Influenza Type B (PCR) Negative (Negative) RSV (PCR) Negative (Negative) 06/14/25 Range/Units 01:15 WBC 13.01 H (4.4-10.8) 10^3/uL RBC 3.75 L (4.36-5.78) 10^6/uL Hgb 10.4 L (13.5-17.5) g/dL Hct 32.8 L (40.0-50.0) % MCV 88 (80-95) fL MCH 27.7 (27.0-33.0) pg MCHC 31.7 L (32.0-36.0) % RDW 20.6 H (11.8-14.1) % Plt Count 108 L (130-400) 10^3/uL MPV 10.4 (8.0-11.0) fL Immature Gran % 1.1 % Neutrophils % 95.1 % Lymphocytes % 1.0 % Monocytes % 2.3 % Eosinophils % 0.0 % Basophils % 0.5 % Nucleated RBC % 0.0 (0.0-0.3) % Absolute Neutrophils 12.37 H (1.2-6.7) 10^3/uL Absolute Lymphocytes 0.13 L (1.2-3.4) 10^3/uL Absolute Monocytes 0.30 (0.1-0.8) 10^3/uL Absolute Eosinophils 0.00 (0.0-0.7) 10^3/uL Absolute Basophils 0.07 (0.0-0.2) 10^3/uL RBC Morphology See Below Poikilocytosis 1+ Anisocytosis 1+ PT 9.9 (9.1-11.1) sec INR 1.0 (0.9-1.1) APTT 33.2 H (20.6-30.2) sec D-Dimer VBG Lactate (<or=2.0) mmol/L Sodium 139 (136-145) mmol/L Potassium 3.8 (3.5-5.1) mmol/L Chloride 102 (98-107) mmol/L Carbon Dioxide 23.3 (21.0-32.0) mmol/L Anion Gap 13.7 H (3-11) mmol/L BUN 21 H (7-18) mg/dL Creatinine 1.7 H (0.70-1.30) mg/dL Est GFR (CKD-EPI 2020) 39.26 (mL/min/1.73m2) Glucose 151 H (74-106) mg/dL Calcium 9.1 (8.5-10.1) mg/dL Magnesium 1.4 L (1.8-2.4) mg/dL Total Bilirubin 1.3 H (0.2-1.0) mg/dL AST 34 (15-37) U/L ALT 16 (16-63) U/L Alkaline Phosphatase 189 H (46-116) U/L Troponin I 86 H* (<or=76) ng/L NT-Pro-B Natriuret Pep 2675 H (<300) pg/mL Total Protein 6.5 (6.4-8.2) g/dL Albumin 1.9 L (3.4-5.0) g/dL Lipase 48 (<78) U/L TSH 1.12 (0.36-3.74) uIU/mL Urine Color (Yellow) Urine Clarity (Clear) Urine pH (5-8) Ur Specific [place] (1.005-1.025) Urine Protein (Neg-Trace) mg/dL Urine Ketones (Negative) mg/dL Urine Blood (Negative) Urine Nitrite (Negative) Urine Bilirubin (Negative) Urine Urobilinogen (Up to 0.2) mg/dL Ur Leukocyte Esterase (Negative) Urine RBC (0-2) HPF Urine WBC (0-5) HPF Ur Epithelial Cells (Negative) HPF Urine Crystals (Negative) HPF Urine Bacteria (Negative) HPF Urine Casts (Negative) LPF Urine Mucus (Negative) Ur Culture Indicated? Urine Glucose (Negative) mg/dL COVID-19 Source SARS-CoV-2 (PCR) (Negative) Influenza Type A (PCR) (Negative) Influenza Type B (PCR) (Negative) RSV (PCR) (Negative) 06/14/25 03:35 Urine Culture - Pending Urine - Voided 06/14/25 02:25 Blood Culture - Pending Blood 06/14/25 02:23 Blood Culture - Pending Blood [id number] Documentation Fingerstick Glucose Start: 06/14/25 08:28 Freq: AC & HS Status: Active Protocol: Activity Type Activity Date Activity User E-sign Co-sign Detail Recorded Client Recorded Date Recorded By Document 06/14/25 08:33 GINA PAULINO [id number] 06/14/25 08:34 GINA PAULINO(2) Intake and Output - 24 Hour Total 06/14/25 00:50 thru 06/14/25 09:40 Intake Total 1712 Output Total 600 Balance 1112 Weight 107.6 kg Intake: IV 1452 Oral 260 Output: Urine 600 Other: Comment mixed w stool Stool Size Moderate Stool Characteristics Soft Falls Risk Assessment History of Falls Admit Due to Fall 06/14/25 07:42 Contributing Factors Unstable,Impairments, 06/14/25 07:42 Incontinence,Medications Ambulatory Aids Uses ambulatory device + 06/14/25 07:42 Tubes/Lines With any additional score 06/14/25 07:42 Gait Evaluation W/any additional score 06/14/25 07:42 Cognition No cognitive impairment 06/14/25 07:42 Fall Total Score 107 06/14/25 07:42 Level of Risk Maximum Risk 06/14/25 07:42 Problems (Last Updated 05/18/25 @ 09:19 by Charmaine Bowers CMA) Non-ST elevated myocardial infarction (non-STEMI) (Acute) Atrial tachycardia (Acute) Pneumonia (Acute) Sepsis (Acute) Hypomagnesemia (Acute) Type 2 diabetes mellitus (Acute) Chronic kidney disease, stage 3 (Acute) Notes 06/14/25 07:50 Nursing Notes by Reina Acuna Nursing Note: Transfer patient to ICU. Gave report to the receiving nurse at ICU. Initialized on 06/14/25 07:50 - END OF NOTE 06/14/25 03:56 Nursing Notes by Mary Jane Peralta Nursing Note:0201 diltiazem not given/acknowledged at this time due to provider verbal cancellation due to HR and rhythm at time. Initialized on 06/14/25 03:56 - END OF NOTE v v v v v v v v v Sending and/or Receiving Nurses: Please use comment section below to note any information pertinent to the patient hand-off not included above. Information / Comments: Report received from: Thanh Whelan RN @ [phone]
[2025-06-14] MEDS: levoFLOXacin 500 MG, levoFLOXacin 250 MG 750 MG PO (11:01)
--- NOTE | 2025-06-14 12:18 | W.PM.HP.N ---
Date of service: 06/14/25 Time of Service: 09:00 Assessment and Plan Assessment and plan (1) Atrial tachycardia: Status: Acute Assessment and plan: Patient moved to ICU for rate control Possibly not in NSR since arrival due to wide fluctuation in HR Diltazem 20 and 10 pushes given in ED Diltiazem 20 push given on the floor Diltiazem gtt started in ICU, stopped after home clonidine and home furosemide were given HR in the 100's after interventions, with return to atach > 150 VTE chemoprophylaxis with enoxaparin, not fully anticoagulated Note he does not have a known heart failure diagnosis: 2021 echo with EF 55%, RV unremarkable, PA not assessed Echocardiogram ordered for Jun 14, unable to complete due to tachycardia Call [place] [facility] [place], considering amiodarone gtt vs transfer for cardioversion (2) Sepsis due to pneumonia: Status: Acute Assessment and plan: Septic on admission with likely RLL PNA Note immunocompromise Treating for CAP with ceftriaxone, levofloxacin (3) Immunocompromised state due to drug therapy: Status: Acute Assessment and plan: Started folfox in March, oncologist is Dr Luo at [facility] Regimen typically includes carboplatin with 2-3 other agents including 5FU (4) Non-ST elevated myocardial infarction (non-STEMI): Status: Acute Assessment and plan: Troponins trended down (5) Hypomagnesemia: Status: Acute Assessment and plan: Repleted in the ED, morning recheck (6) Type 2 diabetes mellitus: Status: Acute Assessment and plan: Last known A1C 5.5 in February No longer on insulin at home Started semaglutide this year Continue SSI (7) CKD stage 3 due to type 2 diabetes mellitus: Status: Acute Assessment and plan: Creatinine 1.7 in ED, baseline around 1.3 Monitor (8) Venous stasis dermatitis of both lower extremities: Status: Acute Assessment and plan: Pitting edema, possible HF vs venous stasis History of Present Illness History of Present Illness Chief Complaint: ground level fall Narrative: Dionna Iniguez is an 84 year old man presenting June 14 in the ED after falling at home. He is on chemotherapy for colorectal cancer, starting March, last infusion June 09. Patient reports 3 days of worsening weakness with morning lightheadedness and shortness of breath; later in the day he is only short of breath when ambulating. The evening of June 13 he was trying to rise from seating and slid to the floor without injury, and was unable to rise from the floor. Patient denied chest pain / nausea / vomiting / abdominal pain In the ED he was in atrial fibrillation with HR in the 150's; IV fluid bolus reportedly resulted in NSR with HR in the 80's. HR again climbed to the 150's and [facility] [place] consulted. EKG review indicated possible multifocal atrial tachycardia vs paroxysmal afib. Patient was given diltiazem push 20 mg which returned HR to the 80's. Another cycle of HR elevation and diltizem push 10 again resulted in HR in the 80's. At the time, anticoagulation was deferred. Initial vitals also included elevated BP 180's / 50's, tachypnea 32, SpO2 > 92 on room air. Meanwhile, imaging showed RLL consolidation on CXR. CT head, cervical spine, chest, abdomen, pelvis were unremarkable. CBC showed neutrophilic leukocytosis 13.01, mild anemia. VBG lactate elevated 3.8 -> 3.2. Creatinine 1.7 against baseline 1.1. Hypomagnesemia 1.4, corrected. Troponin elevated 86 -> 104 -> 130 -> 121. TSH within normal limits. In addition to diltiazem pushes and NS 1L bolus, he was given aspirin. He was started on pipercillin-tazobactam and linezolid and admitted to the medical floor. PMH includes colorectal cancer actively receiving folfox chemotherapy, CKD, COPD not on home daytime O2, SAMMI on CPAP, CVA, DM, HTN, HLD, venous stasis dermatitis. Medications of note include furosemide 40 daily, clonidine 0.3 BID, metolazone 2.5 twice weekly, semaglutide injections, valacyclovir presumably for CMV prophylaxis during chemo After admission to the medical floor, patient was found to have HR reportedly as high as 190. He was transferred to the ICU and started on a diltiazem drip. EKG showed afib with ventricular rate 93-176. After review of the record his home furosemide and clonidine were given and the diltiazem drip was stopped. Throughout the day, he had periods with HRs in the 100's - 110's and periods with HR above 150. His antibiotics were changed to community-acquired regimen, ceftriaxone and levofloxacin. Throughout the day the patient was awake and alert, on room air, reporting that he felt sick without specific pain. [facility] All Active Problems (Updated 06/14/25 @ 18:36 by Joaquín Felix MD) Venous stasis dermatitis of both lower extremities (Acute) Immunocompromised state due to drug therapy (Acute) Sepsis due to pneumonia (Acute) Non-ST elevated myocardial infarction (non-STEMI) (Acute) Atrial tachycardia (Acute) Pneumonia (Acute) Sepsis (Acute) Cystic kidney disease, acquired (Acute) Edema of both lower extremities (Acute) Osteoarthritis (Chronic) Megaloblastic anemia due to B12 deficiency (Acute) Restrictive lung disease (Acute) Cyst of kidney, acquired (Acute) Primary malignant colorectal neoplasm (Acute) Bradycardia (Acute) Barretts esophagus (Acute) Hypomagnesemia (Acute) Generalized anxiety disorder (Acute) Neuropathy due to type 2 diabetes mellitus (Acute) Type 2 diabetes mellitus (Acute) Chronic kidney disease, stage 3 (Acute) Essential hypertension (Acute) Obstructive sleep apnea syndrome (Chronic) Iron deficiency anemia (Acute) Screening for malignant neoplasm of skin (Acute) Abnormal skin growth (Acute) Actinic keratoses (Acute) Seborrheic keratoses (Acute) Disorder of the skin and subcutaneous tissue, unspecified (Acute) Leg wound, right (Acute) Umbilical hernia (Acute) Hyperlipidemia (Chronic) Hypertension (Chronic) Obesity (Chronic) Sleep apnea (Chronic) COPD (chronic obstructive pulmonary disease) (Chronic) GERD (gastroesophageal reflux disease) (Chronic) Gout (Chronic) Stasis dermatitis of both legs (Chronic) Anemia (Acute) Diabetes mellitus type 2 in obese (Acute) Sinus bradycardia (Acute) 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) (Acute) Cellulitis of leg, right (Acute) Chronic venous stasis dermatitis of both lower extremities (Acute) COPD (chronic obstructive pulmonary disease) (Chronic) DVT prophylaxis (Acute) Ulcer of right lower leg (Acute) Venous stasis (Acute) Venous stasis ulcer of ankle limited to breakdown of skin (Acute) Leg length discrepancy (Acute 02/09/18) Primary osteoarthritis of right knee (Acute 11/01/17) Mitral valve regurgitation (Chronic) CVA (cerebral vascular accident) (Chronic) CKD stage 3 due to type 2 diabetes mellitus (Acute) Diabetic neuropathy (Acute) ORVILLE positive (Acute) Onychomycosis (Acute) Medical History (Updated 06/14/25 @ 18:36 by Joaquín Felix MD) Gout Severe obesity Tinnitus Hernia of anterior abdominal wall Family history of malignant neoplasm of prostate Proteinuria Idiopathic stabbing headache Antinuclear factor positive History of CVA (cerebrovascular accident) without residual deficits Kidney mass COVID Cutaneous abscess of abdominal wall Slurred speech Weakness Diabetic ulcer of right lower leg associated with diabetes mellitus due to underlying condition, with fat layer exposed Renal insufficiency Cirrhosis Cellulitis Hx TIA/stroke w/o resid SAMMI on CPAP HLD (hyperlipidemia) HTN (hypertension) Venous stasis ulcer right lateral calf Acute kidney injury (nontraumatic) Scalp hematoma Chest wall contusion Syncope Diabetes mellitus Community acquired pneumonia With hypoxia and bronchospasm. Surgical History History of surgery Debridement of right leg wound with Apligraf History of cholecystectomy H/O rectal sphincterotomy History of appendectomy History of total right hip arthroplasty Family History Father , age 63 Heart disease Stroke Hypertension Mother , age 101 No problems noted. Brother Prostate cancer Other Neoplasm Social History Smoking/Tobacco Use Status: Former Tobacco Use Quit Date: 03/06/84 Smoking risk assessment performed?: Yes Alcohol Intake: never Drug use: Never Substance use type: does not use Housing: house Current gender identity: male Do you feel safe at home: Yes Do you feel safe in your relationship?: Yes Meds Allergies and Home Medications Allergies Allergy/AdvReac Type Severity Reaction Status Date / Time cephalexin AdvReac Intermediate genitourinary Verified 06/14/25 01:35 edema Home Medications ?Medication ?Instructions ?Recorded ?Confirmed ?Type citalopram 20 mg tablet 10 mg PO DAILY 12/02/12 06/14/25 History atorvastatin 40 mg tablet (Lipitor) 40 mg PO DAILY ##0 03/28/15 06/14/25 Rx Diabetic Shoe W Lift 11/01/17 Clinic Diabetic Shoe W Lift u ##1 11/01/17 Clinic allopurinol 100 mg tablet 100 mg PO DAILY 03/13/19 06/14/25 History clopidogrel 75 mg tablet 75 mg PO DAILY 03/13/19 06/14/25 History cyanocobalamin (vitamin B-12) 1,000 mcg PO BID 03/13/19 06/14/25 History 1,000 mcg tablet (Vitamin B-12) fluticasone 500 mcg-salmeterol 50 1 inh inhalation BID 03/13/19 06/14/25 History mcg/dose blistr powdr for inhalation (Advair Diskus) metformin 500 mg tablet 1,000 mg PO BID 03/13/19 06/14/25 History metolazone 2.5 mg tablet 2.5 mg PO .TWICE WEEKLY 03/13/19 06/14/25 History lisinopril 40 mg tablet 40 mg PO DAILY 03/10/21 06/14/25 History amlodipine 5 mg tablet 10 mg PO HS 02/13/22 06/14/25 History cholecalciferol (vitamin D3) 50 50 mcg PO DAILY 02/13/22 06/14/25 History mcg (2,000 unit) capsule ferrous sulfate 325 mg (65 mg 325 mg PO DAILY 02/13/22 06/14/25 History iron) tablet furosemide 20 mg tablet 40 mg PO DAILY 02/13/22 06/14/25 History zinc acetate 50 mg (zinc) capsule 50 mg PO DAILY 02/13/22 06/14/25 History (Galzin) pantoprazole 40 mg tablet,delayed 40 mg PO DAILY AM PRN 10/11/23 06/14/25 History release clonidine HCl 0.3 mg tablet 0.2 mg PO BID 08/24/24 06/14/25 History acetaminophen 325 mg tablet 650 mg PO Q6H PRN 11/07/24 06/14/25 History albuterol sulfate 2.5 mg/3 mL 2.5 mg inhalation Q2H PRN 11/07/24 06/14/25 History (0.083 %) solution for nebulization clonidine HCl 0.3 mg tablet 0.3 mg PO BID 11/07/24 06/14/25 History insulin degludec 100 unit/mL (3 25 unit subcut DAILY 11/07/24 06/14/25 History mL) subcutaneous pen (Tresiba FlexTouch U-100 insulin) semaglutide 1 mg/dose (4 mg/3 mL) 0.5 mg subcut QWEEK 11/07/24 06/14/25 History subcutaneous pen injector (Ozempic) umeclidinium 62.5 mcg/actuation 1 inh inhalation DAILY 11/07/24 06/14/25 History blister powder for inhalation (Incruse Ellipta) valacyclovir 500 mg tablet 500 mg PO TID 11/07/24 06/14/25 History ketoconazole 2 % topical cream 1 applic topical DAILY #120 grams 12/28/24 06/14/25 Rx fluorouracil 5 % topical cream 1 applic topical BID 05/18/25 06/14/25 History ondansetron HCl 8 mg tablet 8 mg PO Q8H 05/18/25 06/14/25 History Exam Narrative Exam Narrative: General: This is a pleasant, elderly man, fatigued appearing, well-nourished HEENT: Normocephalic, atraumatic CV: tachycardic, irregular rate, irregular rhythm. BLE 2+ pitting edema with stigmata of venous stasis Resp: soft bibasilar rales Abd: soft, NTND MSK: voluntary motion x4 Neuro: awake, alert, no focal deficits Results Labs 06/14/25 01:15 06/14/25 01:15 Labs: Laboratory Results - last 24 hr 06/14/25 06/14/25 06/14/25 01:15 01:29 01:48 WBC 13.01 H RBC 3.75 L Hgb 10.4 L Hct 32.8 L MCV 88 MCH 27.7 MCHC 31.7 L RDW 20.6 H Plt Count 108 L MPV 10.4 Immature Gran % 1.1 Neutrophils % 95.1 Lymphocytes % 1.0 Monocytes % 2.3 Eosinophils % 0.0 Basophils % 0.5 Nucleated RBC % 0.0 Absolute Neutrophils 12.37 H Absolute Lymphocytes 0.13 L Absolute Monocytes 0.30 Absolute Eosinophils 0.00 Absolute Basophils 0.07 RBC Morphology See Below Poikilocytosis 1+ Anisocytosis 1+ PT 9.9 INR 1.0 APTT 33.2 H D-Dimer Cancelled VBG Lactate Sodium 139 Potassium 3.8 Chloride 102 Carbon Dioxide 23.3 Anion Gap 13.7 H BUN 21 H Creatinine 1.7 H Est GFR (CKD-EPI 2020) 39.26 Glucose 151 H Calcium 9.1 Magnesium 1.4 L Total Bilirubin 1.3 H AST 34 ALT 16 Alkaline Phosphatase 189 H Troponin I 86 H* NT-Pro-B Natriuret Pep 2675 H Total Protein 6.5 Albumin 1.9 L Lipase 48 TSH 1.12 Urine Color Urine Clarity Urine pH Ur Specific [place] Urine Protein Urine Ketones Urine Blood Urine Nitrite Urine Bilirubin Urine Urobilinogen Ur Leukocyte Esterase Urine RBC Urine WBC Ur Epithelial Cells Urine Crystals Urine Bacteria Urine Casts Urine Mucus Ur Culture Indicated? Urine Glucose COVID-19 Source Nasopharynx SARS-CoV-2 (PCR) Negative Influenza Type A (PCR) Negative Influenza Type B (PCR) Negative RSV (PCR) Negative 06/14/25 06/14/25 06/14/25 02:25 02:57 03:35 WBC RBC Hgb Hct MCV MCH MCHC RDW Plt Count MPV Immature Gran % Neutrophils % Lymphocytes % Monocytes % Eosinophils % Basophils % Nucleated RBC % Absolute Neutrophils Absolute Lymphocytes Absolute Monocytes Absolute Eosinophils Absolute Basophils RBC Morphology Poikilocytosis Anisocytosis PT INR APTT D-Dimer VBG Lactate 3.8 H* Sodium Potassium Chloride Carbon Dioxide Anion Gap BUN Creatinine Est GFR (CKD-EPI 2020) Glucose Calcium Magnesium Total Bilirubin AST ALT Alkaline Phosphatase Troponin I 104 H* NT-Pro-B Natriuret Pep Total Protein Albumin Lipase TSH Urine Color Yellow Urine Clarity Sl Cloudy Urine pH 5.0 Ur Specific [place] 1.020 Urine Protein 30 H Urine Ketones Negative Urine Blood Negative Urine Nitrite Negative Urine Bilirubin Negative Urine Urobilinogen 0.2 Ur Leukocyte Esterase Negative Urine RBC Negative Urine WBC Negative Ur Epithelial Cells Negative Urine Crystals Moderate Amorphous Urine Bacteria Few Urine Casts 0-2 Fine Granular Urine Mucus Trace Ur Culture Indicated? C&S Done As Ordered Urine Glucose Negative COVID-19 Source SARS-CoV-2 (PCR) Influenza Type A (PCR) Influenza Type B (PCR) RSV (PCR) 06/14/25 03:38 WBC RBC Hgb Hct MCV MCH MCHC RDW Plt Count MPV Immature Gran % Neutrophils % Lymphocytes % Monocytes % Eosinophils % Basophils % Nucleated RBC % Absolute Neutrophils Absolute Lymphocytes Absolute Monocytes Absolute Eosinophils Absolute Basophils RBC Morphology Poikilocytosis Anisocytosis PT INR APTT D-Dimer VBG Lactate 3.2 H* Sodium Potassium Chloride Carbon Dioxide Anion Gap BUN Creatinine Est GFR (CKD-EPI 2020) Glucose Calcium Magnesium Total Bilirubin AST ALT Alkaline Phosphatase Troponin I 130 H* NT-Pro-B Natriuret Pep Total Protein Albumin Lipase TSH Urine Color Urine Clarity Urine pH Ur Specific [place] Urine Protein Urine Ketones Urine Blood Urine Nitrite Urine Bilirubin Urine Urobilinogen Ur Leukocyte Esterase Urine RBC Urine WBC Ur Epithelial Cells Urine Crystals Urine Bacteria Urine Casts Urine Mucus Ur Culture Indicated? Urine Glucose COVID-19 Source SARS-CoV-2 (PCR) Influenza Type A (PCR) Influenza Type B (PCR) RSV (PCR) Last Vital Signs Temp 36.8 C 06/14/25 07:42 Pulse 123 H 06/14/25 10:01 Resp 37 H 06/14/25 10:30 BP 147/90 H 06/14/25 10:01 Pulse Ox 91 L 06/14/25 08:15 Time Spent Time spent with Patient: 55-74 minutes Time was spent: preparing to see the patient(eg.review tests), obtaining and/or reviewing separately otained hiistory, ordering medications,tests, procedures, referring, communicating with other health child care center assistant director, indepentently interpreting results, counseling the patient and care coordination
[2025-06-14] MEDS: Budesonide/Formoterol 160/4.5 6 GM 60 PUFF INH IH ×2 (12:53→20:35)
[2025-06-14] MEDS: Umeclidinium 7 CAP INHALER 1 CAP IH (12:54)
--- NOTE | 2025-06-14 13:00 | RT.EKG_ITS ---
APPROVED REPORT Exam: Resting ECG Reason for Exam: persistent tachycardia Patient Location: I HR:138 bpm ECG Measurements Heart Rate 138 [place] [id number] P [id number] QRSd 80 QRS 20 QT 288 T 204 QTc 437 Conclusion Atrial fibrillation...V-rate 93-176, irreg A-activity Ventricular premature complex...V complex w/ short R-R interval Nonspecific T abnormalities, lateral leads...T <-0.10mV, I aVL V5 V6 Baseline wander in lead(s) V4
[2025-06-14] MEDS: Furosemide 40 MG/4 ML VIAL IVP (13:44)
[2025-06-14 13:56] LABS: Troponin I 121 ng/L (<or=76)
[2025-06-14] MEDS: cloNIDine 0.1 MG TAB 0.3 MG PO (14:00)
--- NOTE | 2025-06-14 14:50 | PHA.REVIEW2 ---
Pharmacy Admission Review Admission Clinical Review Admission Pharmacy Review: Non-ST elevated myocardial infarction (non-STEMI) (Acute) Atrial tachycardia (Acute) Pneumonia (Acute) Sepsis (Acute) Hypomagnesemia (Acute) Type 2 diabetes mellitus (Acute) Chronic kidney disease, stage 3 (Acute) cephalexin Adverse Reaction (Intermediate, Verified 06/14/25 01:35) genitourinary edema Resuscitation Status Full Code Height 5 ft 8 in Weight 107.6 kg Comments Comments/Follow Ups: monitor renal fx, antibiotic therapy and cultures, hr while on diltiazem drip Pharmacy Admission Review Renal Dosing Renal Dosing: scr=1.7; crcl=38; BUN 21 mg/dL (7-18) H 06/14/25 01:15 Creatinine 1.7 mg/dL (0.70-1.30) H 06/14/25 01:15 Medications needing adjustments: Intervened (renally adjusted levofloxacin to 750mg q48h. valtrex is for chemo-induced neutropenia antiviral ppx-dose 500mg tid okay with current renal function. ) Anticoagulation Anticoagulation: Hgb 10.4 g/dL (13.5-17.5) L 06/14/25 01:15 Hct 32.8 % (40.0-50.0) L 06/14/25 01:15 Plt Count 108 10^3/uL (130-400) L 06/14/25 01:15 INR 1.0 (0.9-1.1) 06/14/25 01:15 Creatinine 1.7 mg/dL (0.70-1.30) H 06/14/25 01:15 DVT Prophylaxis: Reviewed Medications: Enoxaparin Opiate Usage Evaluate Pain Scale/Pains Meds: N/A Relevant Labs Relevant Labs: Sodium 139 mmol/L (136-145) 06/14/25 01:15 Potassium 3.8 mmol/L (3.5-5.1) 06/14/25 01:15 Chloride 102 mmol/L (98-107) 06/14/25 01:15 Magnesium 1.4 mg/dL (1.8-2.4) L 06/14/25 01:15 Electrolytes, C-Reactive P, ESR: Reviewed (Mg repleted overnight. ) DM Control DM Control: Intervened Insulin Dosing, Diabetic Medication: Pt on tresiba 25 units daily and metformin 1000mg bid, ozempic-all being held while in ICU. currently on insulin aspart sliding scale. Cardiac Review Cardiac Review: cz=978/61; kk=448 Troponin I 121 ng/L (<or=76) H* 06/14/25 13:25 NT-Pro-B Natriuret Pep 2675 pg/mL (<300) H 06/14/25 01:15 BP, HR, EF%: Reviewed List meds needing interventions: on home lisinopril, diltiazem gtt, clonidine QTc Review QTc: Reviewed List meds needing interventions: [id number]; monitor with levofloxacin & ceftriaxone Home Meds Home Med List reviewed: Reviewed Relevent Home Meds Not ordered & why?: metformin, ozempic while inpatient; pt on folfox for colorectal cancer Current Meds Current Medication Order Review: Reviewed Pharmacy Antibiotic Review Pharmacy Antibiotic Activity: D/C antibiotic (recommended to d/c azitromycin while on levofloxacin (covers atypicals)) and Reviewed, no change Comments: f/u urine, blood cxs. pt immunosuppressed and being treated for pneumonia (consolidation on CXR) Comments Comments/Follow Ups: monitor renal fx, antibiotic therapy and cultures, hr while on diltiazem drip
--- NOTE | 2025-06-14 15:41 | NUR.NOTE ---
Access chart to reconcile EKG orders with EKG's in [facility]. Nursing Note:
[2025-06-14] MEDS: valACYclovir 500 MG TAB PO ×2 (16:14→19:23)
[2025-06-14] MEDS: Furosemide 20 MG/2 ML VIAL IVP (16:24)
[2025-06-14] MEDS: Insulin Aspart 300 UNITS/3 ML PEN SC ×2 (17:06→21:46)
[2025-06-14] MEDS: cloNIDine 0.1 MG TAB 0.2 MG PO (19:23)
[2025-06-14] MEDS: amLODIPine 5 MG TAB 10 MG PO (19:23)
[2025-06-14] MEDS: Atorvastatin 40 MG TAB PO (19:23)
[2025-06-14] MEDS: MAGNESIUM SULFATE 2 GM/50 ML BAG IV_INF (20:16)
--- NOTE | 2025-06-14 21:20 | CE_ITS ---
Date of service: 06/14/25 Time of Service: 21:20 Event Note: This is an 84-year-old gentleman hospitalized for atrial fibrillation with rapid ventricular response in the ICU now with poor rate control. [facility] did call back in consultation and was reviewing the more recent EKG which looked more like paroxysmal atrial fibrillation with rapid ventricular response and then previous interpretation of MAT. The initial consultation recommended treating the underlying problem which appear to be pneumonia in a patient who is immunocompromised with chemotherapy for colorectal cancer. He had failed diltiazem for rate control and because of soft blood pressures originally and possible sepsis, cardiology recommended loading with digoxin and if that did not help with rate control, low-dose metoprolol 12.5 mg every 6 hours could be added. His blood pressure now is more stable. He is tachypneic and slightly short of breath at rest but otherwise comfortable with no palpitations or chest pain. The patient offers no further history or concerns. He was laying flat in bed whenever I examined him. Cardiology also recommended initiating Eliquis 5 mg twice daily and he did get a dose in the evening having had his last dose of Lovenox this morning. He does have a planned echocardiogram in the morning. Long-term he needs to have his Zio patch placed at discharge and cardiology follow-up. Vital signs were stable save for tachycardia up to 150 with blood pressure having systolics above 120 consistently. Patient appeared comfortable lying flat in bed, lungs were clear to auscultation and heart had a irregular irregular rhythm with tachycardic rate and systolic murmur especially when there was more of a pause between systoles. Abdomen was obese with pannus and extremities had nonpitting edema. There is no cyanosis. Assessment/plan: This a patient with atrial fibrillation and rapid ventricular sponsor which appears to be new onset with stress of chemotherapy for colorectal cancer and sepsis presenting with pneumonia as a source. He will be loaded with digoxin 0.5 mg IV with repeat 0.25 mg every 6 hours up to 3 doses for loading dose the first 24 hours. This is not adjusted to his renal functions. If his rate is not controlled with digoxin alone, metoprolol 12.5 mg p.o. every 6 hours can be started and adjusted to heart rate control. Will continue to trend troponins which were slightly elevated and still rising though this still appears to be demand ischemia rather than acute coronary syndrome. Cardiology did not advise transfer unless patient is unstable and did want to be called back if heart rate was not controlled with the above medical therapy. He is not on diltiazem. He remains a full code. Time Spent with Patient Time spent in critical care(minutes): 45 Time Spent Included: Coordination of care, Chart review, Documenting critically ill care, Time at immediate bedside and Discussing critically ill care with other medical staff
[2025-06-14] MEDS: Digoxin 0.5 MG/2 ML AMP IVP (21:34)
[2025-06-14] MEDS: Apixaban 5 MG TAB PO (21:35)
[2025-06-15] VITALS (29 sets, daily range): BP systolic 102–151; BP diastolic 49–114; PULSE 70–131; RESP 19–40; TEMP 36.1; O2SAT 88–94
[2025-06-15] MEDS: Digoxin 0.5 MG/2 ML AMP IVP ×2 (03:23→14:29)
[2025-06-15 06:43] LABS: Magnesium 2.0 mg/dL (1.8-2.4)
[2025-06-15] MEDS: Citalopram 20 MG TAB 10 MG PO (07:44)
[2025-06-15] MEDS: Lisinopril 20 MG TAB 40 MG PO (07:45)
[2025-06-15] MEDS: valACYclovir 500 MG TAB PO ×3 (07:45→19:38)
[2025-06-15] MEDS: Allopurinol 100 MG TAB PO (07:45)
[2025-06-15] MEDS: Cholecalciferol (Vitamin D3) 1,000 UNIT TAB 2000 UNITS PO (07:45)
[2025-06-15] MEDS: Cyanocobalamin 500 MCG TAB 1000 MCG PO ×2 (07:45→19:38)
[2025-06-15] MEDS: Furosemide 20 MG TAB 40 MG PO (07:45)
[2025-06-15] MEDS: Apixaban 5 MG TAB PO ×2 (07:45→19:39)
[2025-06-15] MEDS: cloNIDine 0.1 MG TAB 0.2 MG PO ×2 (07:46→19:38)
[2025-06-15] MEDS: Insulin Aspart 300 UNITS/3 ML PEN SC ×4 (07:48→21:47)
[2025-06-15] MEDS: cefTRIAXone 1 GM/50 ML BAG IVPB (07:53)
[2025-06-15] MEDS: Umeclidinium 7 CAP INHALER 1 CAP IH (08:41)
[2025-06-15] MEDS: Budesonide/Formoterol 160/4.5 6 GM 60 PUFF INH IH ×2 (08:41→19:40)
[2025-06-15] MEDS: Ferrous Sulfate 325 MG TAB PO (11:54)
--- NOTE | 2025-06-15 12:57 | W.NUTRFU ---
Date of service: 06/15/25 Time of Service: 12:57 Nutrition Note NOTE: received consult request for diabetes ed/mgt. Andres in ICU fpr acite mpm-STEMI, Atrial tachycardia, PNA, Sepsis, low mag and CKD3. Hx of DMII with last A1c 5.5% last February. Hx of <7.6% over the last 2 years. Patient denies frequent lows. Some weight loss noted - patient states had been trying to lose weight. On ozempic at home (held currently). Denies concerns with n/v/c/d. chewing fine but states occasionally feels like food doesn't go all the way down when swallowing and needs to take some fluid/clear throat until it passes. Fair intake this admission - ate less than 50% of lunch today. Is interested in Vanilla glucose control boost tonight to have if appetite still not up to par. Fingersticks 149 to 259 at meals this admission on moderate sliding scale novolog for corrections at meals and 2200 Declines any education at this time. Would suggest 10u insulin glargine Q AM in conjunction with current order for corrections to help bring glucose closer to target. Will monitor glucose, intake, nutrition-related labs. Time Spent in Nutritional Counseling and Treatment: 10 min
--- NOTE | 2025-06-15 13:13 | CHAPLAIN ---
Andres was resting in bed when I visited. He was pleasant and easily engaged in conversation. 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 He met a [place] in [place] and eventually moved to [place], [place], and the to [place]. He is originally from [facility]. Andres is in touch with his family and had several family members visit yesterday, according to Care Management notes.
--- NOTE | 2025-06-15 13:23 | PDOC.CMPRO ---
Date of service: 06/15/25 Time of Service: 13:23 Care Management Progress Note Progress Note Text Progress Note Text: Andres was reclined in the bed when CM met with him today. He was very pleasant with CM. 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 He feels very satisfied with his life. Andres stated that he was feeling well today, but his HR is still up. He has not been out of bed since he has been here, not even for toileting. PT consult was requested by CM for when he is medically ready. Andres was agreeable to this. He is hopeful that he will not need HH services, but is willing to accept them if he needs them. Discharge Potential Discharge Needs: PT Evaluation and PCP F/U Appt Anticipated Barriers to Discharge: None Identified Patient/Family Education Needs: Review discharge instructions, discuss Ask Me Three Transportation: Private vehicle Plan: Anticipate Andres will be discharged home once medically ready, likely with new HH services of RN and PT. It is recommended that Andres follow up with community providers, oncologist, and discharge plan of care. Andres will be discharged home via private vehicle. CM will continue to follow. Social Determinants of Health Screening Social Determinants of health last assessed in clinic: 06/15/25 Will the Patient Participate in the Screening?: Yes Do you worry about having a steady place to live?: no Problems where you live: inadequate lighting In the past 12 months, have you had to go without electric, gas, oil or water in your home?: no 1. Within the past 12 months, we worried whether our food would run out before we got money to buy more.: Don't know/refused 2. Within the past 12 months, the food we bought just didn't last and we didn't have money to get more.: Don't know/refused Has lack of transportation kept you from medical appointments or from doing things needed for daily living?: no Has anyone in your life made you feel unsafe or unsupported?: no How hard is it for you to pay for the very basics like food, housing, medical care, and heating? Would you say it is:: Not hard at all Do you want help finding or keeping work or a job?: I do not need or want help If for any reason you need help with day-to-day activities such as bathing, preparing meals, shopping, managing finances, etc., do you get the help you need?: I don?t need any help How often do you feel lonely or isolated from those around you?: Never Do you speak a language other than [place] at home?: No Comments: electrical issue with ceiling light in living room, unsure what, but needs help from an electrician manager. Plumbing issue with pump that provides water - has water but very poor water pressure - no leaks that he knows of but too expensive to fix right now without help (pt states $1400). 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 Health Related Social Needs Health related social needs: inadequate housing (Z59.1) Health related social needs details: electrical issue with ceiling light in living room, unsure what, but needs help from an electrician manager. Plumbing issue with pump that provides water - has water but very poor water pressure - no leaks that he knows of but too expensive to fix right now without help (pt states $1400). 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
[2025-06-15] MEDS: Normal Saline Flush 10 ML SYR IVP (14:30)
--- NOTE | 2025-06-15 15:33 | W.PM.PROGNOT ---
Date of Service Date of service: 06/15/25 Time of Service: 09:00 Assessment and Plan Assessment and plan (1) Atrial tachycardia: Status: Acute Assessment and plan: Patient moved to ICU for rate control Possibly not in NSR since arrival due to wide fluctuation in HR Diltazem 20 and 10 pushes given in ED Diltiazem 20 push given on the floor Diltiazem gtt started in ICU, stopped after home clonidine and home furosemide were given HR in the 100's after interventions, with return to atach > 150 VTE chemoprophylaxis with enoxaparin, not fully anticoagulated Note he does not have a known heart failure diagnosis: 2021 echo with EF 55%, RV unremarkable, PA not assessed Echocardiogram ordered for Jun 14, unable to complete due to tachycardia [facility] [place] cardiology advising digoxin load, start PO course when rate controlled Needs heart monitor for 30 days at discharge (2) Sepsis due to pneumonia: Status: Acute Assessment and plan: Septic on admission with likely RLL PNA Note immunocompromise Treating for CAP with ceftriaxone, levofloxacin (3) Immunocompromised state due to drug therapy: Status: Acute Assessment and plan: Started folfox in March, oncologist is Dr Luo at [facility] [place] [facility] oncology Regimen typically includes carboplatin with 2-3 other agents including 5FU (4) Non-ST elevated myocardial infarction (non-STEMI): Status: Acute Assessment and plan: Troponins trended down (5) Hypomagnesemia: Status: Acute Assessment and plan: Repleted in the ED, morning recheck (6) Type 2 diabetes mellitus: Status: Acute Assessment and plan: Last known A1C 5.5 in February No longer on insulin at home Started semaglutide this year Continue SSI (7) CKD stage 3 due to type 2 diabetes mellitus: Status: Acute Assessment and plan: Creatinine 1.7 in ED, baseline around 1.3 Monitor (8) Venous stasis dermatitis of both lower extremities: Status: Acute Assessment and plan: Pitting edema, possible HF vs venous stasis Subjective Subjective Interval history since last seen: Mr Iniguez is awake and alert without complaints. On room air. HR rapidly rises and rhythm changes with any movement. Continuing digoxin pushes until rate is controlled. Exam Narrative Exam Narrative: General: This is a pleasant, elderly man, fatigued appearing, well-nourished HEENT: Normocephalic, atraumatic CV: tachycardic, irregular rate, irregular rhythm. BLE 2+ pitting edema with stigmata of venous stasis Resp: soft bibasilar rales Abd: soft, NTND MSK: voluntary motion x4 Neuro: awake, alert, no focal deficits Objective Last Vital Signs Temp 36.5 C 06/14/25 19:30 Pulse 97 H 06/15/25 15:01 Resp 26 H 06/15/25 15:01 BP 139/71 06/15/25 15:01 Pulse Ox 92 06/15/25 15:01 Laboratory Results - last 24 hr 06/15/25 05:35 Magnesium 2.0 Time Spent with Patient Time Spent with Patient: 35-49 minutes Time was spent: preparing to see the patient(eg.review tests), obtaining and/or reviewing separately otained hiistory, ordering medications,tests, procedures, referring, communicating with other health manager care management, indepentently interpreting results, counseling the patient and care coordination
--- NOTE | 2025-06-15 16:10 | PT.INIE ---
PT Notes Visit Reasons: Pneumonia; Atrial Fibrillation; Hypomagnesemia Inpatient Physical Therapy Evaluation Date: 06/15/25 Referring Doctor: Dr. Felix PT Orders: PT CONSULT: Precautions: fall, standard. Close monitoring of HR via telemetry, with goal of <120 bpm. Patient Profile/Admitting Diagnosis: Dionna is an 84 year old male referred for PT evaluation and treatment in acute care setting, where he is being managed for pneumonia and atrial fibriallation with RVR and poor rate control. Social History/Home Situation: Andres resides in a private home with his . He is independent at baseline, using a cane occasionally. Reports a single fall just prior to admission, but no previous falls or balance issues. Equipment Owned/DME: cane Subjective: Andres is anxious to get up to the chair. States that he hasn't been able to sit up from bed for 3 days, and is anxious to get moving. Objective: General Observation: Resting in bed with telemetry in place, IV to LUE, BP cuff to RUE. Mental Status: A&Ox3. Pleasant and cooperative throughout. Pain: denies Vital Signs: Resting HR in low 100s. Increases to 140 upon sitting, remaining elevated until assisted back to supine. ROM: Right Upper Extremity: Shoulder flexion to 150*. Elbow motion WFL. Left Upper Extremity: Shoulder flexion to 150*. Elbow motion WFL. Right Lower Extremity: WFL Left Lower Extremity: WFL Strength: Right Upper Extremity: Shoulder flexion 4/5. Biceps 4/5. Triceps 4/5. Left Upper Extremity: Shoulder flexion 4/5. Biceps 4/5. Triceps 4/5. Right Lower Extremity: Ankle DF 3/5 or greater. Able to actively perform heel slide and SLR. Left Lower Extremity: Ankle DF 3/5 or greater. Able to actively perform heel slide and SLR. Bed Mobility/Transfers: supine-sit: mod A sit-supine: max A Gait: unable Balance: Static Sitting: good Dynamic Sitting: good Static Standing: unable Dynamic Standing: unable Special Tests: Mobility Limitations Standardized Measure [facility] AM-PAC 6 clicks Basic Mobility Inpatient Short Form: Raw Score: 10 CMS Score: 77% impairment Informed Consent/Education: Patient instructed in purpose of PT consult and plan of care. Treatment: Initial evaluation (41630) Assisted in transfer to edge of bed, with close monitoring of vitals. Heart rate elevated to 140 with nursing reporting V. tach. Tolerated supervised sitting x 5 minutes, although without improvement in heart rate or rhythm. Was assisted back to supine position with nursing present, with heart rate immediately reducing to the one-teens. Was positioned comfortably in bed and oriented to call nick. Assessment: Patient is an 84 year old male referred to physical therapy services in acute care setting where he is being medically managed for pneumonia with A-fib with RVR. Patient presents with markedly impaired mobility related to A-fib with RVR, and is unsafe for transfers beyond supine to sit today. He currently demonstrates the following impairment level findings: 1. Decreased activity tolerance 2. Decreased functional strength 3. Poor rate control with functional movement Impairments are contributing to the following functional limitations: 1. Unable to independently perform bed mobility 2. Unable to tolerate sitting position due to increasing heart rate 3. Unable to ambulate Patient is assessed as High 40306 complexity based on the following: History: As above Examination: As above Presentation: unstable medical condition Decision Making: High complexity Goals: Goals X1 week 1. Supine-Sit : Supervision 2. Sit-Supine : Supervision 3. Sit-Stand : Supervision 4. Stand-Sit : Supervision 5. Bed-Chair : Supervision with FWW 6. Chair-Bed : Supervision with FWW 7. Gait : Supervision with FWW x 25' Plan of Care/Treatment Plan: 1-2x/day, 7 days/week x 1 week. Plan of care has been reviewed with the CERAMIC MAKER DEMONSTRATOR providing the service under Physical Therapy direction. Initiate Physical Therapy intervention for strengthening, bed mobility, transfers, gait, stairs, balance training, use of assistive device. 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 therapy (Acute) Sepsis due to pneumonia (Acute) Non-ST elevated myocardial infarction (non-STEMI) (Acute) Atrial tachycardia (Acute) Pneumonia (Acute) Sepsis (Acute) Cystic kidney disease, acquired (Acute) Edema of both lower extremities (Acute) Osteoarthritis (Chronic) Megaloblastic anemia due to B12 deficiency (Acute) Restrictive lung disease (Acute) Cyst of kidney, acquired (Acute) Primary malignant colorectal neoplasm (Acute) Bradycardia (Acute) Barretts esophagus (Acute) Hypomagnesemia (Acute) Generalized anxiety disorder (Acute) Neuropathy due to type 2 diabetes mellitus (Acute) Type 2 diabetes mellitus (Acute) Chronic kidney disease, stage 3 (Acute) Essential hypertension (Acute) Obstructive sleep apnea syndrome (Chronic) Iron deficiency anemia (Acute) Screening for malignant neoplasm of skin (Acute) Abnormal skin growth (Acute) Actinic keratoses (Acute) Seborrheic keratoses (Acute) Disorder of the skin and subcutaneous tissue, unspecified (Acute) Leg wound, right (Acute) Umbilical hernia (Acute) Hyperlipidemia (Chronic) Hypertension (Chronic) Obesity (Chronic) Sleep apnea (Chronic) COPD (chronic obstructive pulmonary disease) (Chronic) GERD (gastroesophageal reflux disease) (Chronic) Gout (Chronic) Stasis dermatitis of both legs (Chronic) Anemia (Acute) Diabetes mellitus type 2 in obese (Acute) Sinus bradycardia (Acute) 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) (Acute) Cellulitis of leg, right (Acute) Chronic venous stasis dermatitis of both lower extremities (Acute) COPD (chronic obstructive pulmonary disease) (Chronic) DVT prophylaxis (Acute) Ulcer of right lower leg (Acute) Venous stasis (Acute) Venous stasis ulcer of ankle limited to breakdown of skin (Acute) Leg length discrepancy (Acute 02/09/18) Primary osteoarthritis of right knee (Acute 11/01/17) Mitral valve regurgitation (Chronic) CVA (cerebral vascular accident) (Chronic) CKD stage 3 due to type 2 diabetes mellitus (Acute) Diabetic neuropathy (Acute) ORVILLE positive (Acute) Onychomycosis (Acute) Medical History (Updated 06/14/25 @ 18:36 by Joaquín Felix MD) Gout Severe obesity Tinnitus Hernia of anterior abdominal wall Family history of malignant neoplasm of prostate Proteinuria Idiopathic stabbing headache Antinuclear factor positive History of CVA (cerebrovascular accident) without residual deficits Kidney mass COVID Cutaneous abscess of abdominal wall Slurred speech Weakness Diabetic ulcer of right lower leg associated with diabetes mellitus due to underlying condition, with fat layer exposed Renal insufficiency Cirrhosis Cellulitis Hx TIA/stroke w/o resid SAMMI on CPAP HLD (hyperlipidemia) HTN (hypertension) Venous stasis ulcer right lateral calf Acute kidney injury (nontraumatic) Scalp hematoma Chest wall contusion Syncope Diabetes mellitus Community acquired pneumonia With hypoxia and bronchospasm. Surgical History History of surgery Debridement of right leg wound with Apligraf History of cholecystectomy H/O rectal sphincterotomy History of appendectomy History of total right hip arthroplasty
[2025-06-15] MEDS: Atorvastatin 40 MG TAB PO (19:38)
[2025-06-15] MEDS: amLODIPine 5 MG TAB 10 MG PO (19:38)
[2025-06-16] VITALS (49 sets, daily range): BP systolic 83–139; BP diastolic 54–76; PULSE 70–124; RESP 12–38; TEMP 35.9; O2SAT 89–94
[2025-06-16 06:20] LABS: Magnesium 1.9 mg/dL (1.8-2.4)
[2025-06-16 06:21] LABS: HCT 33.0 % (40.0-50.0); HGB 10.7 g/dL (13.5-17.5); MCH 27.8 pg (27.0-33.0); MCHC 32.4 % (32.0-36.0); MCV 86 fL (80-95); MPV 10.9 fL (8.0-11.0); Platelet Count 136 10^3/uL (130-400); RBC 3.85 10^6/uL (4.36-5.78); RDW 20.0 % (11.8-14.1); RDW-SD 61.2 fL; WBC 11.68 10^3/uL (4.4-10.8)
[2025-06-16 06:39] LABS: ALT 12 U/L (16-63); AST 29 U/L (15-37); Albumin 1.3 g/dL (3.4-5.0); Alkaline Phosphatase 177 U/L (46-116); Anion Gap 8.9 mmol/L (3-11); BUN 27 mg/dL (7-18); Bilirubin, Total 0.6 mg/dL (0.2-1.0); CO2 25.1 mmol/L (21.0-32.0); Calcium 8.5 mg/dL (8.5-10.1); Chloride 103 mmol/L (98-107); Estimated GFR 39.26 (mL/min/1.73m2); Glucose 156 mg/dL (74-106); Potassium 3.2 mmol/L (3.5-5.1); Sodium 137 mmol/L (136-145); Total Protein 5.2 g/dL (6.4-8.2)
[2025-06-16] MEDS: Umeclidinium 7 CAP INHALER 1 CAP IH (08:07)
[2025-06-16] MEDS: Budesonide/Formoterol 160/4.5 6 GM 60 PUFF INH IH ×2 (08:07→20:29)
[2025-06-16] MEDS: Cholecalciferol (Vitamin D3) 1,000 UNIT TAB 2000 UNITS PO (08:36)
[2025-06-16] MEDS: Furosemide 20 MG TAB 40 MG PO (08:36)
[2025-06-16] MEDS: Digoxin 0.25 MG TAB PO (08:37)
[2025-06-16] MEDS: valACYclovir 500 MG TAB PO ×3 (08:37→20:33)
[2025-06-16] MEDS: Cyanocobalamin 500 MCG TAB 1000 MCG PO ×2 (08:37→20:32)
[2025-06-16] MEDS: Lisinopril 20 MG TAB 40 MG PO (08:37)
[2025-06-16] MEDS: levoFLOXacin 500 MG, levoFLOXacin 250 MG 750 MG PO (08:37)
[2025-06-16] MEDS: cloNIDine 0.1 MG TAB 0.2 MG PO ×2 (08:37→20:33)
[2025-06-16] MEDS: Citalopram 20 MG TAB 10 MG PO (08:38)
[2025-06-16] MEDS: Allopurinol 100 MG TAB PO (08:38)
[2025-06-16] MEDS: Apixaban 5 MG TAB PO ×2 (08:38→20:33)
[2025-06-16] MEDS: Insulin Aspart 300 UNITS/3 ML PEN SC ×4 (08:41→22:03)
[2025-06-16] MEDS: Normal Saline 500 ML IV (08:49)
[2025-06-16] MEDS: Pantoprazole 40 MG TABCR PO (08:58)
[2025-06-16] MEDS: Normal Saline Flush 10 ML SYR IVP (08:59)
[2025-06-16] MEDS: cefTRIAXone 1 GM/50 ML BAG IVPB (09:45)
--- NOTE | 2025-06-16 11:25 | PT.INTREAT ---
PT Notes Visit Reasons: Pneumonia; Atrial Fibrillation; Hypomagnesemia Inpatient Physical Therapy Treatment Note [facility] Date: 06/16/25 PRECAUTIONS: standard, fall SUBJECTIVE: Andres states that he would really like to get to the chair today. OBJECTIVE: ? PAIN: denies VITALS: ? Pre-Treatment: HR 99-106 ? Post-Treatment: Up as high as 156 in standing. Returns to to 120s in sitting position. Nursing aware and present with patient at conclusion of session. ? Therapeutic Activities ([id number]): Direct one-on-one instruction in dynamic activities to improve functional performance. ? BED MOBILITY/TRANSFERS? Supine-sit: mod A x 1, with HOB at 30*. Relies heavily on bed rails and support to therapist? Sit-stand: min A? Stand-sit: CGA ? Bed-Chair: CGA with FWW, assistance for lines ? Treatment: Assisted to sitting, and tolerated static sitting x 2 minutes Performed static standing with CGA for 5 minutes, with close monitoring of vitals. Requires total assist for self care in supported standing at walker; assisted nursing with change of briefs and associated care, with cues for breathing and support to walker throughout. ASSESSMENT:? Significant limitations in activity tolerance due to HR control. Very motivated to participate. PLAN: Continue efforts to improve functional mobility with continued monitoring of vitals. TREATMENT CODE/TIME: [id number] ([id number]) DISCHARGE RECOMMENDATION: SNF vs Home with HH PT depending on progress toward established goals
[2025-06-16] MEDS: Ferrous Sulfate 325 MG TAB PO (13:54)
--- NOTE | 2025-06-16 14:11 | W.PM.PROGNOT ---
Date of Service Date of service: 06/16/25 Time of Service: 08:00 Assessment and Plan Assessment and plan (1) Atrial tachycardia: Status: Acute Assessment and plan: Patient moved to ICU for rate control Possibly not in NSR since arrival due to wide fluctuation in HR Diltazem 20 and 10 pushes given in ED Diltiazem 20 push given on the floor Diltiazem gtt started in ICU, stopped after home clonidine and home furosemide were given HR in the 100's after interventions, with return to atach > 150 VTE chemoprophylaxis with enoxaparin, not fully anticoagulated Note he does not have a known heart failure diagnosis: 2021 echo with EF 55%, RV unremarkable, PA not assessed Echocardiogram ordered for Jun 14, unable to complete due to tachycardia [facility] [place] cardiology advising digoxin load, start PO course when rate controlled - Jun 16: BP low after 3rd dose of digoxin 50 IV. Digoxin held overnight. Now on PO only. Needs heart monitor for 30 days at discharge (2) Sepsis due to pneumonia: Status: Acute Assessment and plan: Septic on admission with likely RLL PNA Note immunocompromise Treating for CAP with ceftriaxone, levofloxacin He is on CPAP overnight. No O2 need during the day. WBC trending down 13.01->11.68 (3) Immunocompromised state due to drug therapy: Status: Chronic Assessment and plan: Started folfox in March, oncologist is Dr Luo at [facility] oncology Regimen typically includes carboplatin with 2-3 other agents including 5FU (4) Non-ST elevated myocardial infarction (non-STEMI): Status: Resolved Assessment and plan: Troponins trended down (5) Hypomagnesemia: Status: Acute Assessment and plan: Repleted in the ED, recheck within normal limits (6) Type 2 diabetes mellitus: Status: Chronic Assessment and plan: Last known A1C 5.5 in February No longer on insulin at home Started semaglutide this year Continue SSI (7) CKD stage 3 due to type 2 diabetes mellitus: Status: Acute Assessment and plan: Creatinine persisting at 1.7, baseline around 1.3 (8) Venous stasis dermatitis of both lower extremities: Status: Acute Assessment and plan: Pitting edema, possible HF vs venous stasis Subjective Subjective Interval history since last seen: Mr. Iniguez is up in a chair, with legs elevated, comfortable and without complaints. His heart rate is markedly elevated with any exertion. Exam Narrative Exam Narrative: General: This is a pleasant, elderly man, fatigued appearing, well-nourished HEENT: Normocephalic, atraumatic CV: tachycardic, irregular rate, irregular rhythm. BLE 2+ pitting edema with stigmata of venous stasis Resp: soft bibasilar rales Abd: soft, NTND MSK: voluntary motion x4 Neuro: awake, alert, no focal deficits Objective Last Vital Signs Temp 35.9 C L 06/16/25 12:38 Pulse 98 H 06/16/25 13:00 Resp 38 H 06/16/25 13:00 BP 119/54 L 06/16/25 09:48 Pulse Ox 89 L 06/16/25 13:00 Laboratory Results - last 24 hr 06/16/25 05:58 WBC 11.68 H RBC 3.85 L Hgb 10.7 L Hct 33.0 L MCV 86 MCH 27.8 MCHC 32.4 RDW 20.0 H Plt Count 136 MPV 10.9 VBG Lactate 1.6 Sodium 137 Potassium 3.2 L Chloride 103 Carbon Dioxide 25.1 Anion Gap 8.9 BUN 27 H Creatinine 1.7 H Est GFR (CKD-EPI 2020) 39.26 Glucose 156 H Calcium 8.5 Magnesium 1.9 Total Bilirubin 0.6 AST 29 ALT 12 L Alkaline Phosphatase 177 H Total Protein 5.2 L Albumin 1.3 L Time Spent with Patient Time Spent with Patient: 35-49 minutes Time was spent: preparing to see the patient(eg.review tests), obtaining and/or reviewing separately otained hiistory, ordering medications,tests, procedures, referring, communicating with other health medical care manager, indepentently interpreting results, counseling the patient and care coordination
[2025-06-16] MEDS: amLODIPine 5 MG TAB 10 MG PO (20:32)
[2025-06-16] MEDS: Atorvastatin 40 MG TAB PO (20:32)
[2025-06-17] VITALS (39 sets, daily range): BP systolic 85–134; BP diastolic 42–89; PULSE 61–124; RESP 9–38; TEMP 34.6–36.1; O2SAT 91–96
[2025-06-17 06:32] LABS: Abs Immature Grans 0.16 10^3/uL (0.0-0.06); HCT 31.7 % (40.0-50.0); HGB 10.0 g/dL (13.5-17.5); Immature Grans % 1.9 %; MCH 27.5 pg (27.0-33.0); MCHC 31.5 % (32.0-36.0); MCV 87 fL (80-95); MPV 10.7 fL (8.0-11.0); Platelet Count 133 10^3/uL (130-400); RBC 3.64 10^6/uL (4.36-5.78); RDW 20.1 % (11.8-14.1); RDW-SD 62.2 fL; WBC 8.25 10^3/uL (4.4-10.8)
[2025-06-17 06:53] LABS: Anisocytosis 2+; Poikilocytes 2+
[2025-06-17 07:02] LABS: Magnesium 2.0 mg/dL (1.8-2.4)
[2025-06-17 07:06] LABS: ALT 17 U/L (16-63); AST 33 U/L (15-37); Albumin 1.3 g/dL (3.4-5.0); Alkaline Phosphatase 174 U/L (46-116); Anion Gap 8.9 mmol/L (3-11); BUN 39 mg/dL (7-18); Bilirubin, Total 0.5 mg/dL (0.2-1.0); CO2 25.1 mmol/L (21.0-32.0); Calcium 8.5 mg/dL (8.5-10.1); Chloride 101 mmol/L (98-107); Estimated GFR 30.47 (mL/min/1.73m2); Glucose 146 mg/dL (74-106); Potassium 3.2 mmol/L (3.5-5.1); Sodium 135 mmol/L (136-145); Total Protein 5.1 g/dL (6.4-8.2)
[2025-06-17 07:12] LABS: Digoxin 2.39 ng/mL (0.90-2.00)
[2025-06-17] MEDS: Umeclidinium 7 CAP INHALER 1 CAP IH (08:01)
[2025-06-17] MEDS: Budesonide/Formoterol 160/4.5 6 GM 60 PUFF INH IH ×2 (08:01→20:38)
[2025-06-17] MEDS: Cholecalciferol (Vitamin D3) 1,000 UNIT TAB 2000 UNITS PO (08:04)
[2025-06-17] MEDS: Lisinopril 20 MG TAB 40 MG PO (08:04)
[2025-06-17] MEDS: valACYclovir 500 MG TAB PO ×3 (08:04→19:55)
[2025-06-17] MEDS: Cyanocobalamin 500 MCG TAB 1000 MCG PO ×2 (08:04→19:55)
[2025-06-17] MEDS: cloNIDine 0.1 MG TAB 0.2 MG PO ×2 (08:04→19:54)
[2025-06-17] MEDS: Apixaban 5 MG TAB PO ×2 (08:05→19:54)
[2025-06-17] MEDS: Allopurinol 100 MG TAB PO (08:05)
[2025-06-17] MEDS: Citalopram 20 MG TAB 10 MG PO (08:05)
[2025-06-17] MEDS: Normal Saline Flush 10 ML SYR IVP (08:06)
[2025-06-17] MEDS: cefTRIAXone 1 GM/50 ML BAG IVPB (08:07)
[2025-06-17] MEDS: Normal Saline 500 ML IV (08:07)
--- NOTE | 2025-06-17 09:03 | PT.INTREAT ---
PT Notes Visit Reasons: Pneumonia; Atrial Fibrillation; Hypomagnesemia Inpatient Physical Therapy Treatment Note [facility] Date: 06/17/25 PRECAUTIONS: standard, fall SUBJECTIVE: Andres is transferring back to bed from commode with nursing at initiation of session. He's agreeable to participation in PT intervention. OBJECTIVE: ? PAIN: denies VITALS: ?Monitored by nursing throughout session. Ranges 95-128 during session. Therapeutic Activities ([id number]): Direct one-on-one instruction in dynamic activities to improve functional performance. ? BED MOBILITY/TRANSFERS? Sit-stand: CGA? Stand-sit: CGA ? Bed-Chair: CGA with FWW, assistance for lines ? Treatment: Ambulation: Assist: CGA Weight bearing: as tolerated Assist: FWW Distance: 30' Deviation: slow, shuffling gait, with increasing LINDA. Requires brief standing rest prior to turning around. HR recovers quickly to 90s in sitting Instruction in the following exercises, with encouragement to complete between PT sessions: Ankle pumps 10x with legs elevated LAQ 10x quad sets 10x SLR: unable to perform actively on right; performs small range for single rep on left shoulder horizontal ADD 10x ASSESSMENT:? Significant limitations in activity tolerance due to HR control. Remains very motivated to participate. PLAN: Continue efforts to improve functional mobility with continued monitoring of vitals. TREATMENT CODE/TIME: ([id number]) DISCHARGE RECOMMENDATION: SNF vs Home with HH PT depending on progress toward established goals
[2025-06-17] MEDS: Digoxin 0.25 MG TAB PO (10:23)
[2025-06-17] MEDS: Lactated Ringers 1,000 ML 1000 ML IV (10:24)
[2025-06-17] MEDS: Acetaminophen 325 MG TAB 650 MG PO (10:45)
[2025-06-17] MEDS: POTASSIUM CHLORIDE 20 MEQ/100 ML BAG 50 MEQ IV_INF (10:52)
[2025-06-17] MEDS: Ferrous Sulfate 325 MG TAB PO (11:28)
[2025-06-17] MEDS: Lactated Ringers 1,000 ML 100 ML IV ×2 (11:30→21:58)
[2025-06-17] MEDS: Insulin Aspart 300 UNITS/3 ML PEN SC ×3 (11:47→21:32)
--- NOTE | 2025-06-17 14:00 | W.PM.PROGNOT ---
Date of Service Date of service: 06/17/25 Time of Service: 08:00 Assessment and Plan Assessment and plan (1) Atrial tachycardia: Status: Acute Assessment and plan: Patient moved to ICU for rate control Possibly not in NSR since arrival due to wide fluctuation in HR Diltazem 20 and 10 pushes given in ED Diltiazem 20 push given on the floor Diltiazem gtt started in ICU, stopped after home clonidine and home furosemide were given HR in the 100's after interventions, with return to atach > 150 VTE chemoprophylaxis with enoxaparin, not fully anticoagulated Note he does not have a known heart failure diagnosis: 2021 echo with EF 55%, RV unremarkable, PA not assessed Echocardiogram ordered for Jun 14, unable to complete due to tachycardia [facility] cardiology advising digoxin load, start PO course when rate controlled - Jun 16: BP low after 3rd dose of digoxin 50 IV. Digoxin held overnight. Now on PO only. - Jun 17: Elevated digoxin serum this morning, consistent with load. Will monitor now on PO. Needs heart monitor for 30 days at discharge (2) Sepsis due to pneumonia: Status: Acute Assessment and plan: Septic on admission with likely RLL PNA Note immunocompromise Treating for CAP with ceftriaxone, levofloxacin He is on CPAP overnight. No O2 need during the day. WBC trending down 13.01->11.68 Will DC antibiotics after day 5 (Jun 18) (3) Immunocompromised state due to drug therapy: Status: Chronic Assessment and plan: Started folfox in March, oncologist is Dr Luo at [facility] oncology Regimen typically includes carboplatin with 2-3 other agents including 5FU (4) Non-ST elevated myocardial infarction (non-STEMI): Status: Resolved Assessment and plan: Troponins trended down (5) Hypomagnesemia: Status: Inactive Assessment and plan: Repleted in the ED, recheck within normal limits (6) Type 2 diabetes mellitus: Status: Chronic Assessment and plan: Last known A1C 5.5 in February No longer on insulin at home Started semaglutide this year Continue SSI (7) CKD stage 3 due to type 2 diabetes mellitus: Status: Acute Assessment and plan: Creatinine up to 2.1 today, consistent with poor urine output Have held furosemide in favor of fluids today (8) Venous stasis dermatitis of both lower extremities: Status: Acute Assessment and plan: Pitting edema, possible HF vs venous stasis Subjective Subjective Interval history since last seen: Mr. Iniguez is up in a chair surrounded by family. Better heart rates today, able to work with PT without substantial tachycardia. Exam Narrative Exam Narrative: General: This is a pleasant, elderly man, fatigued appearing, well-nourished HEENT: Normocephalic, atraumatic CV: tachycardic, irregular rate, irregular rhythm. BLE 2+ pitting edema with stigmata of venous stasis Resp: soft bibasilar rales Abd: soft, NTND MSK: voluntary motion x4 Neuro: awake, alert, no focal deficits Objective Last Vital Signs Temp 35.9 C L 06/16/25 12:38 Pulse 61 06/17/25 12:19 Resp 25 H 06/17/25 12:30 BP 101/50 L 06/17/25 12:19 Pulse Ox 96 06/17/25 12:19 Laboratory Results - last 24 hr 06/17/25 05:25 WBC 8.25 RBC 3.64 L Hgb 10.0 L Hct 31.7 L MCV 87 MCH 27.5 MCHC 31.5 L RDW 20.1 H Plt Count 133 MPV 10.7 Immature Gran % 1.9 Neutrophils % 85.7 Lymphocytes % 4.0 Monocytes % 7.6 Eosinophils % 0.6 Basophils % 0.2 Nucleated RBC % 1.5 H Absolute Neutrophils 7.06 H Absolute Lymphocytes 0.33 L Absolute Monocytes 0.63 Absolute Eosinophils 0.05 Absolute Basophils 0.02 RBC Morphology See Below Poikilocytosis 2+ Anisocytosis 2+ Sodium 135 L Potassium 3.2 L Chloride 101 Carbon Dioxide 25.1 Anion Gap 8.9 BUN 39 H Creatinine 2.1 H Est GFR (CKD-EPI 2020) 30.47 Glucose 146 H Calcium 8.5 Magnesium 2.0 Total Bilirubin 0.5 AST 33 ALT 17 Alkaline Phosphatase 174 H Total Protein 5.1 L Albumin 1.3 L Digoxin 2.39 H* Time Spent with Patient Time Spent with Patient: 25-34 minutes Time was spent: preparing to see the patient(eg.review tests), obtaining and/or reviewing separately otained hiistory, ordering medications,tests, procedures, referring, communicating with other health occasional caregiver, indepentently interpreting results, counseling the patient and care coordination
[2025-06-17] MEDS: traMADol 50 MG TAB 25 MG PO (15:03)
--- NOTE | 2025-06-17 17:16 | W.PC.ACHO ---
Registration Status: ADM IN Primary Language: Preferred Language: Mohawk ED Information & Data Chief Complaint Fall/Non TraumaCriteria 06/14/25 01:47 Triage Note BIBEMS, fall at home, no LOC 06/14/25 01:04 , pt states legs just gave out. weakness, uses cane baseline. SOB w/ exertion, HR 140-150s afib, no known afib. HR 80s on transport. denies chest pain. got ~ 500ml. 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 due to underlying condition, with fat layer exposed Renal insufficiency Cirrhosis Cellulitis Hx TIA/stroke w/o resid SAMMI on CPAP HLD (hyperlipidemia) HTN (hypertension) Venous stasis ulcer Acute kidney injury (nontraumatic) Scalp hematoma Chest wall contusion Syncope Diabetes mellitus Community acquired pneumonia (Last Reviewed 12/28/24 @ 10:39 by Yanet Francis DPM) History of surgery History of cholecystectomy H/O rectal sphincterotomy History of appendectomy History of total right hip arthroplasty Most Recent Vital Signs Temperature 35.8 C L 06/17/25 16:19 Temperature Source Temporal Artery Scan 06/17/25 16:19 Pulse 82 06/17/25 16:19 Pulse Rhythm Irregular 06/14/25 06:44 Pulse 87 06/17/25 15:00 Respiratory Rate 23 06/17/25 16:19 Respiratory Effort Incrsd Work of Breathing 06/14/25 07:42 Respiratory Depth Normal 06/14/25 07:42 Respiratory Pattern Tachypnea 06/14/25 07:42 Blood Pressure 105/53 L 06/17/25 16:19 Blood Pressure Mean 70 06/17/25 16:19 Blood Pressure Position Supine 06/14/25 07:42 Pulse Oximetry 93 06/17/25 16:19 Oxygen Delivery Method Room Air 06/17/25 16:19 Oxygen Flow Rate 0 06/17/25 16:19 Fraction of Inspired Oxygen (FIO2) 21 06/17/25 09:42 Pain Level 0 06/17/25 17:04 Comment BP cuff site changed 06/16/25 22:28 Allergies cephalexin Adverse Reaction (Intermediate, Verified 06/14/25 01:35) genitourinary edema Pt denies allergy to medications Precautions Isolation Fall precaution 06/14/25 01:09 Active Medications Generic Name Dose Route Start Last Admin Trade Name Freq PRN Reason Stop Dose Admin Acetaminophen 650 mg 06/14/25 06:41 06/17/25 10:45 Acetaminophen 325 Mg Tab PO 650 mg Q6H PRN PRN Administration Allopurinol 100 mg 06/14/25 08:30 06/17/25 08:05 Allopurinol 100 Mg Tab PO 100 mg DAILY HENRY Administration Amlodipine Besylate 10 mg 06/14/25 20:00 06/16/25 20:32 Amlodipine 5 Mg Tab PO 10 mg HS HENRY Administration Apixaban 5 mg 06/15/25 08:30 06/17/25 08:05 Apixaban 5 Mg Tab PO 5 mg BID HENRY Administration Atorvastatin Calcium 40 mg 06/14/25 20:00 06/16/25 20:32 Atorvastatin 40 Mg Tab PO 40 mg QPM HENRY Administration Budesonide/Formoterol Fumarate 2 puff 06/14/25 08:30 06/17/25 08:01 Budesonide/Formoterol 160/4.5 6 Gm 60 Puff Inh IH 2 puffs BID HENRY Administration Cholecalciferol 2,000 units 06/14/25 08:30 06/17/25 08:04 Cholecalciferol (Vitamin D3) 1,000 Unit Tab PO 2,000 units DAILY HENRY Administration Citalopram Hydrobromide 10 mg 06/15/25 08:30 06/17/25 08:05 Citalopram 20 Mg Tab PO 10 mg DAILY HENRY Administration Clonidine 0.2 mg 06/14/25 20:00 06/17/25 08:04 Clonidine 0.1 Mg Tab PO 0.2 mg BID HENRY Administration Cyanocobalamin 1,000 mcg 06/14/25 08:30 06/17/25 08:04 Cyanocobalamin 500 Mcg Tab PO 1,000 mcg BID HENRY Administration Digoxin 0.25 mg 06/16/25 08:30 06/17/25 10:23 Digoxin 0.25 Mg Tab PO 0.25 mg DAILY HENRY Administration Ferrous Sulfate 325 mg 06/15/25 12:00 06/17/25 11:28 Ferrous Sulfate 325 Mg Tab PO 325 mg DAILY@1200 HENRY Administration Ceftriaxone Sodium/Dextrose 1 gm in 50 mls @ 100 mls/hr 06/14/25 08:30 06/17/25 08:30 Rocephin IVPB 0 mls/hr Q24H HENRY Infusion Sodium Chloride 500 mls @ 0 mls/hr 06/16/25 08:47 06/17/25 16:52 Saline 500ml Bag IV 0 mls/hr PRN PRN Infusion As Directed Ringer's Solution 1,000 mls @ 100 mls/hr 06/17/25 10:15 06/17/25 11:30 IV 100 mls/hr INFUSION HENRY Administration Insulin Aspart 0 units 06/14/25 12:00 06/17/25 17:11 Insulin Aspart 300 Units/3 Ml Pen SC 8 units 0800,1200,1700,2200 HENRY Administration Protocol Levofloxacin 500 mg/ 750 mg 06/14/25 10:00 06/16/25 08:37 Levofloxacin 250 mg PO 750 mg Q48H HENRY Administration Lisinopril 40 mg 06/14/25 08:30 06/17/25 08:04 Lisinopril 20 Mg Tab PO 40 mg DAILY HENRY Administration Pantoprazole Sodium 40 mg 06/14/25 06:41 06/16/25 08:58 Pantoprazole 40 Mg Tabcr PO 40 mg DAILY PRN PRN Administration Sodium Chloride 0 ml 06/16/25 10:24 06/17/25 08:06 Normal Saline Flush 10 Ml Syr IVP 40 ml PRN PRN Administration Tramadol HCl 25 mg 06/17/25 14:39 06/17/25 15:03 Tramadol 50 Mg Tab PO 25 mg Q4H PRN PRN Administration Umeclidinium Acosta 1 cap 06/14/25 08:30 06/17/25 08:01 Umeclidinium 7 Cap Inhaler IH 1 inh DAILY HENRY Administration Valacyclovir HCl 500 mg 06/14/25 14:00 06/17/25 13:58 Valacyclovir 500 Mg Tab PO 500 mg TID HENRY Administration IV IV Catheter Type [Left Upper Peripheral IV Arm] IV Catheter Type [Left Saline Lock Antecubital] IV Catheter Gauge [Left Upper 20 Arm] IV Catheter Gauge [Left 20 Antecubital] Diagnostics 06/17/25 Range/Units 05:25 WBC 8.25 (4.4-10.8) 10^3/uL RBC 3.64 L (4.36-5.78) 10^6/uL Hgb 10.0 L (13.5-17.5) g/dL Hct 31.7 L (40.0-50.0) % MCV 87 (80-95) fL MCH 27.5 (27.0-33.0) pg MCHC 31.5 L (32.0-36.0) % RDW 20.1 H (11.8-14.1) % Plt Count 133 (130-400) 10^3/uL MPV 10.7 (8.0-11.0) fL Immature Gran % 1.9 % Neutrophils % 85.7 % Lymphocytes % 4.0 % Monocytes % 7.6 % Eosinophils % 0.6 % Basophils % 0.2 % Nucleated RBC % 1.5 H (0.0-0.3) % Absolute Neutrophils 7.06 H (1.2-6.7) 10^3/uL Absolute Lymphocytes 0.33 L (1.2-3.4) 10^3/uL Absolute Monocytes 0.63 (0.1-0.8) 10^3/uL Absolute Eosinophils 0.05 (0.0-0.7) 10^3/uL Absolute Basophils 0.02 (0.0-0.2) 10^3/uL RBC Morphology See Below Poikilocytosis 2+ Anisocytosis 2+ Sodium 135 L (136-145) mmol/L Potassium 3.2 L (3.5-5.1) mmol/L Chloride 101 (98-107) mmol/L Carbon Dioxide 25.1 (21.0-32.0) mmol/L Anion Gap 8.9 (3-11) mmol/L BUN 39 H (7-18) mg/dL Creatinine 2.1 H (0.70-1.30) mg/dL Est GFR (CKD-EPI 2020) 30.47 (mL/min/1.73m2) Glucose 146 H (74-106) mg/dL Calcium 8.5 (8.5-10.1) mg/dL Magnesium 2.0 (1.8-2.4) mg/dL Total Bilirubin 0.5 (0.2-1.0) mg/dL AST 33 (15-37) U/L ALT 17 (16-63) U/L Alkaline Phosphatase 174 H (46-116) U/L Total Protein 5.1 L (6.4-8.2) g/dL Albumin 1.3 L (3.4-5.0) g/dL Digoxin 2.39 H* (0.90-2.00) ng/mL 06/14/25 02:25 Blood Culture - Preliminary Blood NO GROWTH 72 HOURS 06/14/25 02:23 Blood Culture - Preliminary Blood NO GROWTH 72 HOURS [id number] Documentation Fingerstick Glucose Start: 06/14/25 08:28 Freq: AC & HS Status: Active Protocol: Activity Type Activity Date Activity User E-sign Co-sign Detail Recorded Client Recorded Date Recorded By Document 06/17/25 16:53 BKG DAEMON(3) [id number] 06/17/25 16:54 BKG DAEMON(4) Intake and Output - 24 Hour Total 06/14/25 00:50 thru 06/17/25 16:58 Intake Total 8338.867 Output Total 3195 Balance 5143.867 Weight 110.7 kg Intake: IV 3142.867 Oral 5196 Output: Urine 3195 Other: Urine Color Dark Cristiana Urine Appearance Cloudy Urine Odor Strong Comment No void at this time. Stool Size Smear Stool Characteristics Mucoid [place] Risk Assessment History of Falls Admit Due to Fall 06/14/25 07:42 Contributing Factors Unstable,Impairments, 06/14/25 07:42 Incontinence,Medications Ambulatory Aids Uses ambulatory device + 06/14/25 07:42 Tubes/Lines With any additional score 06/14/25 07:42 Gait Evaluation W/any additional score 06/14/25 07:42 Cognition No cognitive impairment 06/14/25 07:42 Fall Total Score 107 06/14/25 07:42 Level of Risk Maximum Risk 06/14/25 07:42 Problems (Last Updated 05/18/25 @ 09:19 by Charmaine Bowers CMA) Venous stasis dermatitis of both lower extremities (Acute) Immunocompromised state due to drug therapy (Chronic) Sepsis due to pneumonia (Acute) Atrial tachycardia (Acute) Pneumonia (Acute) Sepsis (Acute) Type 2 diabetes mellitus (Chronic) Chronic kidney disease, stage 3 (Acute) CKD stage 3 due to type 2 diabetes mellitus (Acute) Notes 06/14/25 15:41 Nursing Notes by Kathrine Castrejon Access chart to reconcile EKG orders with EKG's in [facility]. Nursing Note: Initialized on 06/14/25 15:41 - END OF NOTE 06/14/25 07:50 Nursing Notes by Reina Acuna Nursing Note: Transfer patient to ICU. Gave report to the receiving nurse at ICU. Initialized on 06/14/25 07:50 - END OF NOTE 06/14/25 03:56 Nursing Notes by Mary Jane Peralta Nursing Note:0201 diltiazem not given/acknowledged at this time due to provider verbal cancellation due to HR and rhythm at time. Initialized on 06/14/25 03:56 - END OF NOTE v v v v v v v v v Sending and/or Receiving Nurses: Please use comment section below to note any information pertinent to the patient hand-off not included above. Information / Comments: Bedside report done at 1552 in ICU. Pt transferred from ICU to med-surg. Report received from: Reina Bae, [employer]
[2025-06-17] MEDS: amLODIPine 5 MG TAB 10 MG PO (19:55)
[2025-06-17] MEDS: Atorvastatin 40 MG TAB PO (19:55)
--- NOTE | 2025-06-17 20:28 | NUR.NOTE ---
Nursing Note: Patient had a low temperature at 35.6 temporal temperature. Rechecked via tympanic temp probe and got 34.6. Placed patient on bear hugger at this time at 38 degrees Celsius.
[2025-06-18] VITALS (8 sets, daily range): BP systolic 106–138; BP diastolic 39–59; PULSE 73–86; RESP 16–20; TEMP 35.6–35.9; O2SAT 93–95
[2025-06-18 06:46] LABS: Abs Immature Grans 0.17 10^3/uL (0.0-0.06); HCT 31.6 % (40.0-50.0); HGB 10.2 g/dL (13.5-17.5); Immature Grans % 2.2 %; MCH 28.3 pg (27.0-33.0); MCHC 32.3 % (32.0-36.0); MCV 88 fL (80-95); MPV 10.7 fL (8.0-11.0); Platelet Count 130 10^3/uL (130-400); RBC 3.60 10^6/uL (4.36-5.78); RDW 19.4 % (11.8-14.1); RDW-SD 61.3 fL; WBC 7.58 10^3/uL (4.4-10.8)
[2025-06-18 07:08] LABS: ALT 17 U/L (16-63); AST 35 U/L (15-37); Albumin 1.5 g/dL (3.4-5.0); Alkaline Phosphatase 164 U/L (46-116); Anion Gap 11.4 mmol/L (3-11); BUN 50 mg/dL (7-18); Bilirubin, Total 0.6 mg/dL (0.2-1.0); CO2 23.6 mmol/L (21.0-32.0); Calcium 8.7 mg/dL (8.5-10.1); Chloride 99 mmol/L (98-107); Estimated GFR 24.72 (mL/min/1.73m2); Glucose 111 mg/dL (74-106); Potassium 3.5 mmol/L (3.5-5.1); Sodium 134 mmol/L (136-145); Total Protein 5.1 g/dL (6.4-8.2)
[2025-06-18] MEDS: Lactated Ringers 1,000 ML 100 ML IV (07:41)
[2025-06-18] MEDS: Umeclidinium 7 CAP INHALER 1 CAP IH (07:48)
[2025-06-18] MEDS: Budesonide/Formoterol 160/4.5 6 GM 60 PUFF INH IH (07:49)
--- NOTE | 2025-06-18 08:00 | W.PALLCONSUL ---
Date of service: 06/18/25 Time of Service: 08:00 History of Present Illness History of Present Illness Chief Complaint: Shortness of breath Narrative: Raghav is an 84-year-old man who was admitted because of shortness of breath and found to be septic from pneumonia. Additionally he has colon and rectal cancer and is working with Dr. Luo. He plans for his last chemotherapy this week. In 2016 Raghav had a advance directive done. In it he stated that he wanted everything done no matter how close he was to and he wanted to in the hospital. I was asked to see him, talk about his chronic diseases, his cancer, and see if he wanted any addendum's to his advance directives Consults Consult date: 06/18/25 Requesting physician: Joaquín Felix Assessment and Plan Assessment and plan (1) Advance care planning: Status: Acute Assessment and plan: Raghav is a 84-year-old man who has capacity to make his own decisions. He wants his and daughter to make decisions if he is not able to. This has been documented. He is improving but still has multiple comorbidities. We did review his 2016 advance directives. We did discuss CPR, how rarely it works, broken ribs, intubation requiring sedation. He feels strongly that everyone should have CPR. They should in the hospital. And he wants everything done that can be done even if it is not going to be helpful. He remains a full code I did ask him about meeting with him after his hospitalization. He stated that he would call me if that was necessary Review of Systems Narrative: Raghav states that he is feeling better. He can breathe easier. He does not like the airflow system that he is on but he knows it is helping him. His pain is well-controlled. His shortness of breath is improving. He does not have chest pain. No urinary symptoms. PFSH All Active Problems (Updated 06/18/25 @ 08:10 by Tessa Childress MD, [place]) Advance care planning (Acute) Venous stasis dermatitis of both lower extremities (Acute) Immunocompromised state due to drug therapy (Chronic) Sepsis due to pneumonia (Acute) Atrial tachycardia (Acute) Pneumonia (Acute) Sepsis (Acute) Screening for malignant neoplasm of skin (Acute) Abnormal skin growth (Acute) Actinic keratoses (Acute) Seborrheic keratoses (Acute) Iron deficiency anemia (Acute) Obstructive sleep apnea syndrome (Chronic) Essential hypertension (Acute) Megaloblastic anemia due to B12 deficiency (Acute) Chronic kidney disease, stage 3 (Acute) Neuropathy due to type 2 diabetes mellitus (Acute) Type 2 diabetes mellitus (Chronic) Generalized anxiety disorder (Acute) Restrictive lung disease (Acute) Cyst of kidney, acquired (Acute) Edema of both lower extremities (Acute) Cystic kidney disease, acquired (Acute) Barretts esophagus (Acute) Primary malignant colorectal neoplasm (Acute) Disorder of the skin and subcutaneous tissue, unspecified (Acute) Leg wound, right (Acute) Umbilical hernia (Acute) Onychomycosis (Acute) ORVILLE positive (Acute) Diabetic neuropathy (Acute) CKD stage 3 due to type 2 diabetes mellitus (Acute) CVA (cerebral vascular accident) (Chronic) Bradycardia (Acute) Mitral valve regurgitation (Chronic) Primary osteoarthritis of right knee (Acute 11/01/17) Leg length discrepancy (Acute 02/09/18) Venous stasis ulcer of ankle limited to breakdown of skin (Acute) Venous stasis (Acute) Ulcer of right lower leg (Acute) DVT prophylaxis (Acute) COPD (chronic obstructive pulmonary disease) (Chronic) Chronic venous stasis dermatitis of both lower extremities (Acute) Cellulitis of leg, right (Acute) 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) (Acute) Sinus bradycardia (Acute) Diabetes mellitus type 2 in obese (Acute) Anemia (Acute) Stasis dermatitis of both legs (Chronic) Gout (Chronic) GERD (gastroesophageal reflux disease) (Chronic) COPD (chronic obstructive pulmonary disease) (Chronic) Sleep apnea (Chronic) Obesity (Chronic) Hypertension (Chronic) Hyperlipidemia (Chronic) Medical History (Updated 06/18/25 @ 08:10 by Tessa Childress MD, [place]) Gout Severe obesity Tinnitus Hernia of anterior abdominal wall Family history of malignant neoplasm of prostate Proteinuria Idiopathic stabbing headache Antinuclear factor positive History of CVA (cerebrovascular accident) without residual deficits Kidney mass COVID Cutaneous abscess of abdominal wall Slurred speech Weakness Diabetic ulcer of right lower leg associated with diabetes mellitus due to underlying condition, with fat layer exposed Renal insufficiency Cirrhosis Cellulitis Hx TIA/stroke w/o resid SAMMI on CPAP HLD (hyperlipidemia) HTN (hypertension) Venous stasis ulcer right lateral calf Acute kidney injury (nontraumatic) Scalp hematoma Chest wall contusion Syncope Diabetes mellitus Community acquired pneumonia With hypoxia and bronchospasm. Surgical History History of surgery Debridement of right leg wound with Apligraf History of cholecystectomy H/O rectal sphincterotomy History of appendectomy History of total right hip arthroplasty Family History Father , age 63 Heart disease Stroke Hypertension Mother , age 101 No problems noted. Brother Prostate cancer Other Neoplasm Social History Smoking/Tobacco Use Status: Former Tobacco Use Quit Date: 03/06/84 Smoking risk assessment performed?: Yes Alcohol Intake: never Drug use: Never Substance use type: does not use Housing: house Current gender identity: male Do you feel safe at home: Yes Do you feel safe in your relationship?: Yes Exam Narrative Exam Narrative: 84-year-old man who is oriented x 3. He does have capacity to answer questions. He was able to follow commands. His heart was regular with a loud systolic murmur. Lungs he has airflow throughout and I did not hear much in the way of rales. His abdomen was obese nontender. He did have compression boots in place. Results Last Vital Signs Temp 96.6 F L 06/18/25 07:45 Pulse 73 06/18/25 07:45 Resp 20 06/18/25 07:45 BP 106/39 L 06/18/25 07:45 Pulse Ox 93 06/18/25 07:53 CT [place] MPRESSION: 1. No evidence of pulmonary embolism, thoracic aortic dissection or aneurysm. 2. New right middle and right lower lobe infiltrate suspicious for pneumonia. 3. 1.4 cm ground-glass opacity in the left upper lobe. Pulmonary nodule versus infection should be considered. A follow-up CT scan in 3 months is recommended for re-evaluation For Labs 06/18/25 05:40 06/18/25 05:40 Labs: Laboratory Results - last 24 hr 06/18/25 05:40 WBC 7.58 RBC 3.60 L Hgb 10.2 L Hct 31.6 L MCV 88 MCH 28.3 MCHC 32.3 RDW 19.4 H Plt Count 130 MPV 10.7 Immature Gran % 2.2 Neutrophils % 80.8 Lymphocytes % 4.5 Monocytes % 11.7 Eosinophils % 0.5 Basophils % 0.3 Nucleated RBC % 1.7 H Absolute Neutrophils 6.12 Absolute Lymphocytes 0.34 L Absolute Monocytes 0.89 H Absolute Eosinophils 0.04 Absolute Basophils 0.02 Sodium 134 L Potassium 3.5 Chloride 99 Carbon Dioxide 23.6 Anion Gap 11.4 H BUN 50 H Creatinine 2.5 H Est GFR (CKD-EPI 2020) 24.72 Glucose 111 H Calcium 8.7 Total Bilirubin 0.6 AST 35 ALT 17 Alkaline Phosphatase 164 H Total Protein 5.1 L Albumin 1.5 L Time Spent Time Spent with Patient Time Spent(min): 35
[2025-06-18] MEDS: Cholecalciferol (Vitamin D3) 1,000 UNIT TAB 2000 UNITS PO (08:37)
[2025-06-18] MEDS: Citalopram 20 MG TAB 10 MG PO (08:37)
[2025-06-18] MEDS: Insulin Aspart 300 UNITS/3 ML PEN SC ×4 (08:37→22:00)
[2025-06-18] MEDS: valACYclovir 500 MG TAB PO ×3 (08:37→20:41)
[2025-06-18] MEDS: Lisinopril 20 MG TAB 40 MG PO (08:38)
[2025-06-18] MEDS: Allopurinol 100 MG TAB PO (08:38)
[2025-06-18] MEDS: Cyanocobalamin 500 MCG TAB 1000 MCG PO ×2 (08:38→20:42)
[2025-06-18] MEDS: Digoxin 0.25 MG TAB PO (08:38)
[2025-06-18] MEDS: cloNIDine 0.1 MG TAB 0.2 MG PO ×2 (08:38→20:40)
[2025-06-18] MEDS: Apixaban 5 MG TAB PO ×2 (08:39→20:41)
[2025-06-18] MEDS: cefTRIAXone 1 GM/50 ML BAG IVPB (08:39)
[2025-06-18] MEDS: Normal Saline Flush 10 ML SYR IVP (08:39)
[2025-06-18] MEDS: levoFLOXacin 500 MG, levoFLOXacin 250 MG 750 MG PO (09:59)
--- NOTE | 2025-06-18 10:52 | PT.INTREAT ---
PT Notes Visit Reasons: Pneumonia; Atrial Fibrillation; Hypomagnesemia Date: 06/18/2025 PRECAUTIONS: Fall, standard, Activity as tolerated. SUBJECTIVE: pt recently transferred from ICU to [facility], pt was able to participate with therapy session twice, pt in bed during both session, pt agreed o participating with therapy intervention. OBJECTIVE: lexy desai, SCD bilateral LE, IV line on left antecubital, Cpap machine. ? VITALS: monitored Via telemetry Therapeutic Activities 54444: Direct one-on-one instruction in dynamic activities to improve functional performance. ?? BED MOBILITY/TRANSFERS? Rolling L/R: max A Supine-sit: ?max A ? Sit-supine: ?max A? Sit-stand: ?max A ? Stand-sit: ?mod A ? Bed-Chair:? mod A? Chair-bed: mod A Provided skilled cues and instruction on performance and technique throughout. Gait Training 40554: Direct one-on-one instruction and skilled instruction in: Employing an assistive device Modified weight-bearing status Movement sequencing Turning and movement with proper form Provided verbal cues for equipment management and technique Provided instruction in gait pattern Patient education regarding pacing and breathing techniques to maximize activity tolerance? GAIT? Assistive Device: ?FWW ? Weight bearing: FWB Assist: ? Mod A? Distance:??10'x2 seated rest break in between ? Deviation: ?Stoop forward, short step length, low step height, increased BUE loading? Therapeutic Activities 65487 mins: instruction in dynamic activities with one on one patient contact by the provider to improve functional performance?as follows: Sit to stand EOB max A 5x Static sitting on EOB 5mins without support (am) Standing FWW static balance activity mins (am) (pm) Gait training 10' 1st from bed to recliner, 10 2nd recliner to to get ready for trip to imaging. ASSESSMENT:?pt tolerated activity well given enough rest break in between activity, CPAP helps with SOB, as well as cue for deep breathing during task. PLAN: Continue with balance training, global strengthening and general conditioning for improved safety, mobility and activity tolerance until pt is ready for DC. TREATMENT CODE/TIME: 42322x4, 35mins (10:15-10:50am), [id number], [id number] 35mins (2:00-2:25/2:30-2:40pm)
[2025-06-18] MEDS: Ferrous Sulfate 325 MG TAB PO (12:04)
--- NOTE | 2025-06-18 12:38 | CMPROGNOTE_ITS ---
Date of service: 06/18/25 Time of Service: 12:52 Care Management Progress Note Progress Note Text Progress Note Text: Andres was sitting up in bed after finishing a small portion of his lunch. He reported feeling better and has been downgraded from the ICU to the medical- surgical unit. Andres has been participating in PT; PT recommended SNF vs Home with HH PT depending on progress toward established goals. CM reviewed these discharge options in detail with Andres. He demonstrated understanding and agreed to proceed with referrals to [facility] and [facility]. Referrals have been sent. Andres expressed concern about the potential for limited visitation if placed in a SNF farther from home. Additionally, palliative care met with Andres earlier today, and an echo is ordered. CM will continue to follow and assist with discharge planning. Discharge Potential Discharge Needs: PCP F/U Appt Anticipated Barriers to Discharge: None Identified Patient/Family Education Needs: Review discharge instructions, discuss Ask Me Three Transportation: Private vehicle Plan: Anticipate Andres will be discharged home with new HH services as indicated vs SNF for STR once medically ready. Referrals sent to [facility] and [facility]. It is recommended that Andres follow up with community providers, oncologist, and discharge plan of care. Andres will be discharged home via private vehicle. CM will continue to follow. Social Determinants of Health Screening Social Determinants of health last assessed in clinic: 06/18/25 Will the Patient Participate in the Screening?: Yes Do you worry about having a steady place to live?: no Problems where you live: inadequate lighting In the past 12 months, have you had to go without electric, gas, oil or water in your home?: no 1. Within the past 12 months, we worried whether our food would run out before we got money to buy more.: Don't know/refused 2. Within the past 12 months, the food we bought just didn't last and we didn't have money to get more.: Don't know/refused Has lack of transportation kept you from medical appointments or from doing things needed for daily living?: no Has anyone in your life made you feel unsafe or unsupported?: no How hard is it for you to pay for the very basics like food, housing, medical care, and heating? Would you say it is:: Not hard at all Do you want help finding or keeping work or a job?: I do not need or want help If for any reason you need help with day-to-day activities such as bathing, preparing meals, shopping, managing finances, etc., do you get the help you need?: I don?t need any help How often do you feel lonely or isolated from those around you?: Never Do you speak a language other than Romanian at home?: No Comments: electrical issue with ceiling light in living room, unsure what, but needs help from an electrician supervisor. Plumbing issue with pump that provides water - has water but very poor water pressure - no leaks that he knows of but too expensive to fix right now without help (pt states $1400). Bass Guitar Teacher broken, new one purchased but needs to be installed. Health Related Social Needs Health related social needs: inadequate housing (Z59.1) Health related social needs details: electrical issue with ceiling light in living room, unsure what, but needs help from an electrician supervisor. Plumbing issue with pump that provides water - has water but very poor water pressure - no leaks that he knows of but too expensive to fix right now without help (pt states $1400). Bass Guitar Teacher broken, new one purchased but needs to be installed.
[2025-06-18] MEDS: Furosemide 40 MG TAB PO (13:44)
--- NOTE | 2025-06-18 17:55 | PGE_ITS ---
Date of Service Date of service: 06/18/25 Time of Service: 12:00 Assessment and Plan Assessment and plan (1) Atrial tachycardia: Status: Acute Assessment and plan: Patient moved to ICU for rate control Possibly not in NSR since arrival due to wide fluctuation in HR Diltazem 20 and 10 pushes given in ED Diltiazem 20 push given on the floor Diltiazem gtt started in ICU, stopped after home clonidine and home furosemide were given HR in the 100's after interventions, with return to atach > 150 VTE chemoprophylaxis with enoxaparin, not fully anticoagulated Note he does not have a known heart failure diagnosis: 2021 echo with EF 55%, RV unremarkable, PA not assessed Echocardiogram ordered for Jun 14, unable to complete due to tachycardia [facility] [place] advising digoxin load, start PO course when rate controlled - Jun 16: BP low after 3rd dose of digoxin 50 IV. Digoxin held overnight. Now on PO only. - Jun 17: Elevated digoxin serum this morning, consistent with load. Will monitor now on PO. - Jun 18: Much better heart rate control today, with a few brief elevations during exertion. Continue digoxin. Needs heart monitor for 30 days at discharge Echocardiogram delayed due to facility constraints, will order again for Jun 19 (2) Sepsis due to pneumonia: Status: Resolved Assessment and plan: Septic on admission with likely RLL PNA Note immunocompromise Treating for CAP with ceftriaxone, levofloxacin He is on CPAP overnight. No O2 need during the day. 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 Assessment and plan: Started folfox in March, oncologist is Dr Luo at [facility] Regimen typically includes carboplatin with 2-3 other agents including 5FU Next chemotherapy Jun 21 (4) Non-ST elevated myocardial infarction (non-STEMI): Status: Resolved Assessment and plan: Troponins trended down (5) Hypomagnesemia: Status: Resolved Assessment and plan: Repleted in the ED, recheck within normal limits (6) Type 2 diabetes mellitus: Status: Chronic Assessment and plan: Last known A1C 5.5 in February No longer on insulin at home Started semaglutide this year Continue SSI (7) Acute on chronic kidney failure: Status: Acute Assessment and plan: CKD stage 3, baseline creatinine around 1.4 Challenging fluid balance with poor urine output vs painful edema and possible heart failure Diuresis has been paused in favor of fluid resuscitation to increase urine output Worsening creatinine on day 2 of resumed furosemide, now up to 2.5 Continue monitoring renal function vs urine output vs fluid overload (8) Venous stasis dermatitis of both lower extremities: Status: Acute Assessment and plan: Pitting edema, possible HF vs venous stasis Echo showing EF 55-60%, poor study quality but he does not appear to have HFrEF (9) Primary malignant colorectal neoplasm: Status: Acute Assessment and plan: Next chemotherapy is scheduled for Jun 21 Subjective Subjective Interval history since last seen: Mr. Iniguez continues to have significant weakness preventing much ambulation. Several family members at bedside today. PT evaluation recommending SNF vs HH. Exam Narrative Exam Narrative: General: This is a pleasant, elderly man, fatigued appearing, well-nourished HEENT: Normocephalic, atraumatic CV: tachycardic, irregular rate, irregular rhythm. Systolic murmur. BLE 2+ pitting edema with stigmata of venous stasis Resp: soft bibasilar rales Abd: soft, NTND MSK: voluntary motion x4 Neuro: awake, alert, no focal deficits Objective Last Vital Signs Temp 35.8 C L 06/18/25 11:02 Pulse 79 06/18/25 11:02 Resp 20 06/18/25 11:02 BP 114/53 L 06/18/25 11:02 Pulse Ox 93 06/18/25 11:02 Laboratory Results - last 24 hr 06/18/25 05:40 WBC 7.58 RBC 3.60 L Hgb 10.2 L Hct 31.6 L MCV 88 MCH 28.3 MCHC 32.3 RDW 19.4 H Plt Count 130 MPV 10.7 Immature Gran % 2.2 Neutrophils % 80.8 Lymphocytes % 4.5 Monocytes % 11.7 Eosinophils % 0.5 Basophils % 0.3 Nucleated RBC % 1.7 H Absolute Neutrophils 6.12 Absolute Lymphocytes 0.34 L Absolute Monocytes 0.89 H Absolute Eosinophils 0.04 Absolute Basophils 0.02 Sodium 134 L Potassium 3.5 Chloride 99 Carbon Dioxide 23.6 Anion Gap 11.4 H BUN 50 H Creatinine 2.5 H Est GFR (CKD-EPI 2020) 24.72 Glucose 111 H Calcium 8.7 Total Bilirubin 0.6 AST 35 ALT 17 Alkaline Phosphatase 164 H Total Protein 5.1 L Albumin 1.5 L Time Spent with Patient Time Spent with Patient: 25-34 minutes Time was spent: preparing to see the patient(eg.review tests), obtaining and/or reviewing separately otained hiistory, ordering medications,tests, procedures, referring, communicating with other health care navigator, indepentently interpreting results, counseling the patient and care coordination
[2025-06-18] MEDS: amLODIPine 5 MG TAB 10 MG PO (20:41)
[2025-06-18] MEDS: Atorvastatin 40 MG TAB PO (21:00)
[2025-06-19] VITALS (9 sets, daily range): BP systolic 95–158; BP diastolic 42–70; PULSE 67–85; RESP 16–20; TEMP 35.7–36.3; O2SAT 90–96
[2025-06-19 06:56] LABS: Abs Immature Grans 0.28 10^3/uL (0.0-0.06); HCT 32.6 % (40.0-50.0); HGB 10.5 g/dL (13.5-17.5); Immature Grans % 3.9 %; MCH 28.1 pg (27.0-33.0); MCHC 32.2 % (32.0-36.0); MCV 87 fL (80-95); MPV 10.3 fL (8.0-11.0); Platelet Count 128 10^3/uL (130-400); RBC 3.74 10^6/uL (4.36-5.78); RDW 19.6 % (11.8-14.1); RDW-SD 60.1 fL; WBC 7.15 10^3/uL (4.4-10.8)
[2025-06-19 07:33] LABS: ALT 17 U/L (16-63); AST 31 U/L (15-37); Albumin 1.5 g/dL (3.4-5.0); Alkaline Phosphatase 173 U/L (46-116); Anion Gap 10.1 mmol/L (3-11); BUN 57 mg/dL (7-18); Bilirubin, Total 0.6 mg/dL (0.2-1.0); CO2 24.9 mmol/L (21.0-32.0); Calcium 8.6 mg/dL (8.5-10.1); Chloride 99 mmol/L (98-107); Estimated GFR 22.53 (mL/min/1.73m2); Glucose 129 mg/dL (74-106); Potassium 3.8 mmol/L (3.5-5.1); Sodium 134 mmol/L (136-145); Total Protein 5.1 g/dL (6.4-8.2)
[2025-06-19] MEDS: Budesonide/Formoterol 160/4.5 6 GM 60 PUFF INH IH ×2 (08:05→19:15)
[2025-06-19] MEDS: Umeclidinium 7 CAP INHALER 1 CAP IH (08:06)
[2025-06-19] MEDS: Citalopram 20 MG TAB 10 MG PO (08:11)
[2025-06-19] MEDS: valACYclovir 500 MG TAB PO ×3 (08:11→20:09)
[2025-06-19] MEDS: Digoxin 0.25 MG TAB PO (08:11)
[2025-06-19] MEDS: cloNIDine 0.1 MG TAB 0.2 MG PO ×2 (08:13→20:08)
[2025-06-19] MEDS: Lisinopril 20 MG TAB 40 MG PO (08:13)
[2025-06-19] MEDS: Cyanocobalamin 500 MCG TAB 1000 MCG PO ×2 (08:14→20:09)
[2025-06-19] MEDS: Apixaban 5 MG TAB PO ×2 (08:14→20:09)
[2025-06-19] MEDS: Cholecalciferol (Vitamin D3) 1,000 UNIT TAB 2000 UNITS PO (08:14)
[2025-06-19] MEDS: Normal Saline Flush 10 ML SYR IVP (08:14)
[2025-06-19] MEDS: Allopurinol 100 MG TAB PO (08:27)
[2025-06-19 13:32] LABS: Sodium, Urine 8 mmol/L
[2025-06-19] MEDS: Ferrous Sulfate 325 MG TAB PO (14:44)
--- NOTE | 2025-06-19 16:15 | PT.INTREAT ---
PT Notes Visit Reasons: Pneumonia; Atrial Fibrillation; Hypomagnesemia Date: 06/19/2025 PRECAUTIONS: Fall, standard, Activity as tolerated. SUBJECTIVE: Patient reports she was lowered to the floor this morning. He initially declined treatment in a.m. agreeable to bed level and p.m. OBJECTIVE: SCD bilateral LE, IV line on left antecubital, Cpap machine. ? VITALS: monitored Via telemetry Therapeutic Activities 20799: Direct one-on-one instruction in dynamic activities to improve functional performance. ?? BED MOBILITY/TRANSFERS? Rolling L/R: max A? ?for repositioning ? Provided skilled cues and instruction on performance and technique throughout. [id number], therapeutic exercise provided continuous cueing and facilitation of the following Supine BLE x 10 reps heel slides, hip AB and adduction, short arc quad with pillow under knee, ankle pumps Supine BLE shoulder flexion and abduction to 90 degrees elbow flexion and extension ASSESSMENT: Patient with fair tolerance to session today after episode of being lowered to the floor in the a.m. Patient declined out of bed but agreeable to participate in out of bed tasks at next session. PLAN: Continue with balance training, global strengthening and general conditioning for improved safety, mobility and activity tolerance until pt is ready for DC. TREATMENT CODE/TIME: 84938/3:38 PM?3:59 PM
[2025-06-19] MEDS: Insulin Aspart 300 UNITS/3 ML PEN SC (17:10)
--- NOTE | 2025-06-19 18:42 | PGE_ITS ---
Date of Service Date of service: 06/19/25 Time of Service: 18:42 Assessment and Plan Assessment and plan (1) Atrial tachycardia: Status: Acute Assessment and plan: Unclear rhythm initially, but was in atrial fibrillation per cardiology with RVR, moved to ICU for rate control Was on diltiazem drip, stopped after home clonidine and home furosemide were given HR in the 100's after interventions, with return to atach > 150 [facility] cardiology consulted, advised digoxin load, start PO course when rate controlled - Jun 16: BP low after 3rd dose of digoxin 50 IV. Digoxin held overnight. Then PO only. - Jun 17: Elevated digoxin serum this morning, consistent with load. Continued oral digoxin. - Jun 18: Much better heart rate control today, with a few brief elevations during exertion. Continue digoxin. Echocardiogram with normal LVEF 06/18. He is now on abixaban. 06/19 rate still controlled, but I am concern that tremor and anorexia a/w digoxin, holding and repeat levels in AM. (2) Sepsis due to pneumonia: Status: Resolved Assessment and plan: Septic on admission with likely RLL PNA with immunocompromise Treatted for CAP with ceftriaxone, levofloxacin 5 day course of antibiotics completed Jun 18 (3) Immunocompromised state due to drug therapy: Status: Chronic Assessment and plan: Started folfox in March, oncologist is Dr Luo at [facility] Regimen typically includes carboplatin with 2-3 other agents including 5FU Next chemotherapy Jun 21. Will contact about plan prior to discharge. (4) Non-ST elevated myocardial infarction (non-STEMI): Status: Resolved Assessment and plan: Mild elevation to 130 before Troponins trended down c/w type 2 NSTEMI related to atrial fibrillation/rate. (5) Type 2 diabetes mellitus: Status: Chronic Assessment and plan: Last known A1C 5.5 in February No longer on insulin at home Started semaglutide this year Continue SSI, repeat A1c. (6) Acute on chronic kidney failure: Status: Acute Assessment and plan: CKD stage 3, baseline creatinine around 1.4 Challenging fluid balance with poor urine output vs painful edema and possible heart failure Diuresis was been paused on admission in favor of fluid resuscitation to increase urine output Worsening creatinine after resuming furosemide, now up to 2.7. FENa 0.1% c/w prerenal. Will hold metolazone and furosemide today, monitor. Consider POCUS as renal congestion may also be concen with increasing weight, but echo 06/18 not c/w high IVC pressure. Continue monitoring renal function and urine output (7) Venous stasis dermatitis of both lower extremities: Status: Acute Assessment and plan: Pitting edema less today Echo showing EF 55-60%, poor study quality but he does not appear to have active HFrEF (8) Primary malignant colorectal neoplasm: Status: Acute Assessment and plan: Next chemotherapy is scheduled for Jun 21, see above. (9) Tremor: Status: Acute Assessment and plan: New since admission. Not typical with digoxin toxicity. Chemo toxicity? Lytes okay. Doesn't appear classic asterixis, but he does have some slowing of mental status, has cirrhosis and risk of encephalopathy, get ammonia, consider treatment. Subjective Subjective Patient reports: denies vomiting, shortness of breath or fever Interval history since last seen: He and family concerned with tremors and slow shaky voice, which was not present before this illness. He also has poor appetite. He does nothave chest pain. Exam Narrative Exam Narrative: General: This is a pleasant, elderly man, fatigued appearing, well-nourished CV: irregular rate, irregular rhythm. Systolic murmur. BLE 1+ pitting edema with stigmata of venous stasis Resp: soft bibasilar rales Abd: soft, NTND Neuro: awake, alert, no focal deficits Objective Last Vital Signs Temp 36 C L 06/19/25 15:42 Pulse 85 06/19/25 15:42 Resp 16 06/19/25 15:42 BP 110/62 06/19/25 15:42 Pulse Ox 96 06/19/25 15:42 Laboratory Results - last 24 hr 06/19/25 06/19/25 05:50 12:30 WBC 7.15 RBC 3.74 L Hgb 10.5 L Hct 32.6 L MCV 87 MCH 28.1 MCHC 32.2 RDW 19.6 H Plt Count 128 L MPV 10.3 Immature Gran % 3.9 Neutrophils % 79.8 Lymphocytes % 3.9 Monocytes % 11.9 Eosinophils % 0.4 Basophils % 0.1 Nucleated RBC % 1.8 H Absolute Neutrophils 5.70 Absolute Lymphocytes 0.28 L Absolute Monocytes 0.85 H Absolute Eosinophils 0.03 Absolute Basophils 0.01 Sodium 134 L Potassium 3.8 Chloride 99 Carbon Dioxide 24.9 Anion Gap 10.1 BUN 57 H Creatinine 2.7 H Est GFR (CKD-EPI 2020) 22.53 Glucose 129 H Calcium 8.6 Total Bilirubin 0.6 AST 31 ALT 17 Alkaline Phosphatase 173 H Total Protein 5.1 L Albumin 1.5 L Ur Random Creatinine 144.50 Ur Random Sodium 8 Time Spent with Patient Time Spent with Patient: 35-49 minutes Time was spent: preparing to see the patient(eg.review tests), obtaining and/or reviewing separately otained hiistory, ordering medications,tests, procedures, referring, communicating with other health resident care assistant, indepentently interpreting results, counseling the patient and care coordination
--- NOTE | 2025-06-19 19:01 | PDOC.CMPRO ---
Date of service: 06/19/25 Time of Service: 19:14 Care Management Progress Note Progress Note Text Progress Note Text: CM met with Andres while he was resting in bed. Per report, Andres was lowered to the floor this morning. Andres shares he was able to work with PT this afternoon which he feels went well. He had multiple visitors throughout the day, providing him with ongoing support. Andres has an bed offer at [facility] on Wednesday, 06/22, which he has accepted. He is also scheduled for chemotherapy on 06/21. A speech therapy consult has been requested by nursing for a swallow evaluation. CM will continue to follow. Discharge Potential Discharge Needs: PCP F/U Appt and Other (Oncology) Anticipated Barriers to Discharge: None Identified Patient/Family Education Needs: Review discharge instructions, discuss Ask Me Three Transportation: Private vehicle Plan: Anticipate Andres will be discharged to [facility] on 06/22 with accepted bed offer. He may benefit from new services as indicated following STR. It is recommended that Andres follow up with community providers, oncologist, palliaitve care and discharge plan of care. Andres will be discharged via private vehicle vs [facility] private care. CM will continue to follow. Social Determinants of Health Screening Social Determinants of health last assessed in clinic: 06/19/25 Will the Patient Participate in the Screening?: Yes Do you worry about having a steady place to live?: no Problems where you live: inadequate lighting In the past 12 months, have you had to go without electric, gas, oil or water in your home?: no 1. Within the past 12 months, we worried whether our food would run out before we got money to buy more.: Don't know/refused 2. Within the past 12 months, the food we bought just didn't last and we didn't have money to get more.: Don't know/refused Has lack of transportation kept you from medical appointments or from doing things needed for daily living?: no Has anyone in your life made you feel unsafe or unsupported?: no How hard is it for you to pay for the very basics like food, housing, medical care, and heating? Would you say it is:: Not hard at all Do you want help finding or keeping work or a job?: I do not need or want help If for any reason you need help with day-to-day activities such as bathing, preparing meals, shopping, managing finances, etc., do you get the help you need?: I don?t need any help How often do you feel lonely or isolated from those around you?: Never Do you speak a language other than Peruvian at home?: No Comments: electrical issue with ceiling light in living room, unsure what, but needs help from an railway signal electrician. Plumbing issue with pump that provides water - has water but very poor water pressure - no leaks that he knows of but too expensive to fix right now without help (pt states $1400). Transmission Systems Operator broken, new one purchased but needs to be installed. Health Related Social Needs Health related social needs: inadequate housing (Z59.1) Health related social needs details: electrical issue with ceiling light in living room, unsure what, but needs help from an railway signal electrician. Plumbing issue with pump that provides water - has water but very poor water pressure - no leaks that he knows of but too expensive to fix right now without help (pt states $1400). Transmission Systems Operator broken, new one purchased but needs to be installed.
[2025-06-19] MEDS: amLODIPine 5 MG TAB 10 MG PO (20:09)
[2025-06-19] MEDS: Atorvastatin 40 MG TAB PO (20:09)
[2025-06-20] VITALS (18 sets, daily range): BP systolic 100–124; BP diastolic 44–77; PULSE 50–82; RESP 14–20; TEMP 35.7–36.2; O2SAT 91–95
--- NOTE | 2025-06-20 04:15 | RT.EKG_ITS ---
APPROVED REPORT Exam: Resting ECG Reason for Exam: Tele changes Patient Location: I HR:78 bpm ECG Measurements Heart Rate 78 AXIS MN 217 P 0 QRSd 104 QRS 26 QT 329 T 227 QTc 375 Conclusion Sinus rhythm...normal P axis, V-rate 50- 99 Borderline prolonged MN interval...MN >212, V-rate 50- 90 Left atrial enlargement...P, P'>60mS, <-0.15mV V1 Low voltage, extremity leads...all extremity leads <0.5mV Nondiagnostic ST-T abnormalities
[2025-06-20 07:11] LABS: Ammonia < 10 umol/L (11-32)
[2025-06-20 07:13] LABS: Hemoglobin A1C 6.9 % (<5.7)
[2025-06-20 07:35] LABS: Anion Gap 12.4 mmol/L (3-11); BUN 64 mg/dL (7-18); CO2 21.6 mmol/L (21.0-32.0); Calcium 8.1 mg/dL (8.5-10.1); Chloride 99 mmol/L (98-107); Estimated GFR 20.68 (mL/min/1.73m2); Glucose 127 mg/dL (74-106); Potassium 3.9 mmol/L (3.5-5.1); Sodium 133 mmol/L (136-145)
[2025-06-20 07:37] LABS: Digoxin 4.75 ng/mL (0.90-2.00)
[2025-06-20] MEDS: Umeclidinium 7 CAP INHALER 1 CAP IH (08:37)
[2025-06-20] MEDS: Budesonide/Formoterol 160/4.5 6 GM 60 PUFF INH IH ×2 (08:37→19:44)
--- NOTE | 2025-06-20 09:53 | PDOC.CMPRO ---
Date of service: 06/20/25 Time of Service: 09:53 Care Management Progress Note Progress Note Text Progress Note Text: Andres was sitting up in bed when CM met with him today. He had a busy day, worked with both PT and with DIRECTOR OF OPERATIONS HOME HEALTH. He had felt like his pills were stuck in his throat. He was changed to a pureed/thin diet after his consult, and is not really happy about it. Per reports, Andres's digoxin level is too high, and this is causing decreased appetite and slow mentation. His digoxin has been held for 2 days now, and his mental status is improving. Discharge Potential Discharge Needs: PCP F/U Appt and Other (oncology) Anticipated Barriers to Discharge: None Identified Patient/Family Education Needs: Review discharge instructions, discuss Ask Me Three Plan: Anticipate Andres will be discharged to [facility] on 06/22 with accepted bed offer. It is recommended that Andres follow up with community providers, oncologist, palliaitve care and discharge plan of care. Andres will be discharged via private vehicle vs [facility] private care. CM will continue to follow. Social Determinants of Health Screening Social Determinants of health last assessed in clinic: 06/20/25 Will the Patient Participate in the Screening?: Yes Do you worry about having a steady place to live?: no Problems where you live: inadequate lighting In the past 12 months, have you had to go without electric, gas, oil or water in your home?: no 1. Within the past 12 months, we worried whether our food would run out before we got money to buy more.: Don't know/refused 2. Within the past 12 months, the food we bought just didn't last and we didn't have money to get more.: Don't know/refused Has lack of transportation kept you from medical appointments or from doing things needed for daily living?: no Has anyone in your life made you feel unsafe or unsupported?: no How hard is it for you to pay for the very basics like food, housing, medical care, and heating? Would you say it is:: Not hard at all Do you want help finding or keeping work or a job?: I do not need or want help If for any reason you need help with day-to-day activities such as bathing, preparing meals, shopping, managing finances, etc., do you get the help you need?: I don?t need any help How often do you feel lonely or isolated from those around you?: Never Do you speak a language other than Estonian at home?: No Comments: electrical issue with ceiling light in living room, unsure what, but needs help from an electrician aircraft. Plumbing issue with pump that provides water - has water but very poor water pressure - no leaks that he knows of but too expensive to fix right now without help (pt states $1400). Chiropractic Care broken, new one purchased but needs to be installed. Health Related Social Needs Health related social needs: inadequate housing (Z59.1) Health related social needs details: electrical issue with ceiling light in living room, unsure what, but needs help from an electrician aircraft. Plumbing issue with pump that provides water - has water but very poor water pressure - no leaks that he knows of but too expensive to fix right now without help (pt states $1400). Chiropractic Care broken, new one purchased but needs to be installed.
--- NOTE | 2025-06-20 10:26 | PT.INTREAT ---
PT Notes Visit Reasons: Pneumonia; Atrial Fibrillation; Hypomagnesemia Date: 06/20/2025 PRECAUTIONS: Fall, standard, Activity as tolerated. SUBJECTIVE: 1st session:Patient reports he feels weak but is wanting to get out of the bed. He states his pills got stuck this morning. 2nd session: Pt reports his bottom is sore when seated in chair. OBJECTIVE: SCD bilateral LE, IV line on left antecubital, CPAP machine. ? VITALS: monitored Via telemetry throughout Therapeutic Activities 92470: Direct one-on-one instruction in dynamic activities to improve functional performance. ?? BED MOBILITY/TRANSFERS? Rolling L/R: max A? ?for repositioning ? supine to sit with Max A of 2 and use of gear cutting machine set up operator pad to scoot to edge. sit to stand at FWW with Mod A of 2 step turn with FWW bed to chair Mod A of 2 and SBA of 1 stand to sit with Mod A of 2 and verbal cue to bend his knees and keep head forward. Provided skilled cues and instruction on performance and technique throughout. 2nd session sit to stand at FWW from chair x 3 trials with Mod A of 2 stand at FWW x 40 sec x 3 with mod A of 1 min A of 1. Pt with retropulsion needing tactile and verbal cues for anterior wt shift pull to stand on steady lift with mod A of 2 and min A of 1. Pt able to hold upright in lift with CGA of 1 and verbal cues to flex at hips for anterior weight shift. stand to sit from steady lift with mod A of 2. min A to sit at EOB x 3 mins sit to supine with max A of 2. ASSESSMENT: First session:Pt able to tolerate step turn transfer with FWW with assist of 2-3. Recommend Nursing staff to utilize Steady Lift with 2 assist for transfer due to B LE instability and risk for BLE buckling . Pt able to lateral step to the left with mod A of 2 and SBA of 1 in AM. 2nd session pt with increased weakness/fatigue requiring assist of 3 to stand at steady lift. Pt unable to move BLE for step turn with FWW in pm. Pt tolerated OOB x 3 hours .Pt with pelvic thrusting when seated increasing risk for falls when in upright chair. PLAN: Continue with balance training, global strengthening and general conditioning for improved safety, mobility and activity tolerance until pt is ready for DC. D/C Recommendations: Short term SNF TREATMENT CODE/TIME: 1st session: 43953/ [id number] 2nd session: [id number]
--- NOTE | 2025-06-20 10:55 | SP_ITS ---
Date of service: 06/20/25 Time of Service: 10:55 Subjective Clinical (Bedside) Swallow Evaluation - Inpatient Speech Language Pathology Referred by: Referral Type: Routine Swallow Consult Precautions: Standard, Fall, Full Code Reason for Referral/HPI: Patient is an 84 y/o M with colorectal cancer, undergoing chemotherapy and therefore currently immunocompromised, Cho's esophagus, SAMMI on CPAP, COPD (not on daytime O2 at baseline), CKD, DM2, history of CVA (chronic), admitted on 06/14 after a fall at home, following multiple days of increased weakness, and SOB. On admit he was found with septic R LL PNA as well as found in atrial fibrilation with EKG revealing possible multifocal atrial tachycardia vs paroxysmal afib. He was initially admitted to ICU for heart rate control, now t/f to med surg and has completed a course of abx for PNA while inpatient. Per nursing and MD, he still remains with some lung sounds, crackles. He has had decreased PO intake over baseline per family report, and in recent days nursing reports difficulty with pills getting stuck, gagging, expectoration, etc. Per MD, his overall status, including speech and swallow, is poorer today and y esterday and there is some concern for digoxin toxicity contributing to this. GASTROENTEROLOGY PROFESSOR IMPRESSIONS & RECOMMENDATIONS: Patient appears with mild acute oral-pharyngeal dysphagia in setting of fatigue, weakness, shortness of breath, dry mouth. This is likely overlaid on baseline chronic esophageal dysphagia in context of Ronnie's esophagus. He is able to tolerate small and cut pills in presence of nursing/GASTROENTEROLOGY PROFESSOR this date, taken with applesauce and followed by small sips water. Patient does endorse significant fatigue and weakness, as well as pharyngo-esophageal stasis across textures, but resolves with slow pace. He is unwilling to trial dry solids this date, stating they will not go down. He does demonstrate intermittent gentle throat clear with thin liquids, but does not report sensation of aspiration, reports It feels like it didn't go all the way down, and localizes sensation to level of proximal esophagus. Given medical history, immunocompromised status, and acute illness/weakness, patient is at moderate risk of pulmonary complications from aspiration. Education was given to patient/family and nursing regarding risk levels, appropriate precautions to reduce risk of aspiration and further mitigate risks with physical activity and oral care. RECOMMENDATIONS Diet modification is indicated as follows for the purpose of reduced pharyngeal vs esophageal stasis, energy conservation, reduced work of breathing due to pulmonary status. Diet Recommendations: ? SOLIDS: 4-Pureed Solids LIQUIDS: 0-Thin Liquids MEDICATIONS: Whole vs cut With 4-Purees followed by liquid wash Alter medications only as advised by Physician or Pharmacist RISK MANAGEMENT: Level of Assistance/Supervision: 1:1Assistive feeding only by trained staff/family for energy conservation/cueing Positioning and environment: PO intake only when awake/alert? Reduce auditory and/or visual distractions when eating Up to chair Oral hygiene Before/after PO intake Using friction with toothbrush on all oral structures as tolerated Strategies/Adaptations/Assistive Equipment: Small sips Small bites Slow rate of intake Alternate intake of liquids and solids Reflux Precautions: Small+frequent meals throughout day Maintain fully upright position at least 30 minutes after meals Avoid meals/snacks 2-3 hours prior to reclining/sleeping Sleep with head of bed elevated to reduce likelihood of nocturnal reflux FURTHER INPATIENT GASTROENTEROLOGY PROFESSOR SERVICES: Patient to be followed while on unit Discharge Recommendations: Likely to d/c without further GASTROENTEROLOGY PROFESSOR service, pending progress while inpatient. SUBJECTIVE: Patient received: alert/awakelethargic. Agreeable to evaluation. His and granddaughter were present for evaluation and participated throughout. Pain Reported n/a Baseline Swallow Function: Patient reports chronic sx of pharyngo-esophageal stasis, sometimes reporting things will be stuck down there for several hours. Localizes sensation to level of clavicle. Denies frequent coughing/choking/sputtering, throat clear, etc. Patient's reports recently tolerating foods like steak, mashed potatoes without difficulty, but does endorse some longstanding difficulty with foods getting stuck. They both feel this can happen regardless of texture/consistency. She reports he will cough/choke with food/liquid, but typically less than 1x daily at baseline. OBJECTIVE Patient positioning: Up to chair/90 degrees Oral care: Reported recently completed Respiratory status: Room air, Tolerates well without s/sx dyspnea but with open mouth breathing posture. Orientation/Mental status: Oriented to self, Oriented to situation, recall of recent events is intact but vague, able to follow instructions. Speech: WFL but appears fatigued. Oral Mechanism Examination: Dentition: Natural dentition fair condition Oral mucosa: Dry ? Cranial Nerve Assessment: CN V ? Trigeminal Jaw Strength/ROM WNL ?WNL CN VII- Facial WNL labial ROM, strength, coordination. WNL lingual sensation WNL CN IX ? Glossopharyngeal WNL palatal elevation with phonation. No evidence of nasal emissions WNL CN X ? Vagus WNL Vocal quality and volume. Strong/sharp volitional cough WNL CX XII ? Hypoglossal WNL lingual ROM, strength, coordination WNL PO Intake: Trials Assessed: Ice IDDSI 0 Thin Liquids IDDSI 4 Puree Solid Medications administered by RN/GASTROENTEROLOGY PROFESSOR in puree (whole vs cut depending on size) Oral Phase Findings: WFL Pharyngeal Phase Findings: Throat clearing Endorsed stasis - resolves with time/liquid wash. Dry voice throughout, throat clearing even at times without trials Esophageal Phase Findings: Patient reports proximal esophageal stasis ? Education Provided to: Nursing Patient Family Topics Addressed: anatomy/physiology of swallowing mechanism definition and impacts of aspiration impact of current diagnoses on swallow function role of GASTROENTEROLOGY PROFESSOR in management of swallow disorders overt s/sx to monitor for re: potential aspiration of food / liquids relationship between reflux, GERD and swallow fxn relationship between respiratory function and deglutition rationale and instruction for additional risk management strategies as above PLAN: Frequency: 2-3x/week for 1-2 weeks Goals: Director Of [employer] Goals: Patient will remain free from aspiration-related illness, malnutrition, and dehydration. Short Term Goals: Patient will tolerate Puree Diet and Thin liquids without overt s/s aspiration across 2/2 visits. Patient will tolerate PO trials for consideration of diet upgrade without overt s/s aspiration across 2/2 visits. GASTROENTEROLOGY PROFESSOR CPT Code: 24855 Clinical Swallowing Evaluation Start time: 11:00 am End time: 11:35 am Total patient contact: 35 min
[2025-06-20] MEDS: Citalopram 20 MG TAB 10 MG PO (11:31)
[2025-06-20] MEDS: cloNIDine 0.1 MG TAB 0.2 MG PO ×2 (11:33→19:55)
[2025-06-20] MEDS: Apixaban 5 MG TAB PO ×2 (11:34→19:54)
[2025-06-20] MEDS: Allopurinol 100 MG TAB PO (11:35)
[2025-06-20] MEDS: Lisinopril 20 MG TAB 40 MG PO (11:36)
[2025-06-20] MEDS: Lactated Ringers 1,000 ML 100 ML IV (11:37)
[2025-06-20] MEDS: Normal Saline Flush 10 ML SYR IVP (11:39)
[2025-06-20] MEDS: Insulin Aspart 300 UNITS/3 ML PEN SC ×3 (12:01→21:37)
--- NOTE | 2025-06-20 15:23 | PGE_ITS ---
Date of Service Date of service: 06/20/25 Time of Service: 15:27 Assessment and Plan Assessment and plan (1) Atrial tachycardia: Status: Acute Assessment and plan: Unclear rhythm initially, but was in atrial fibrillation per cardiology with RVR, moved to ICU for rate control Was on diltiazem drip, stopped after home clonidine and home furosemide were given HR in the 100's after interventions, with return to atach > 150 [facility] [place] cardi[place] consulted, advised digoxin load, start PO course when rate controlled - Jun 16: BP low after 3rd dose of digoxin 50 IV. Digoxin held overnight. Then PO only. - Jun 17: Elevated digoxin levels, consistent with load. Continued oral digoxin. - Jun 18: Much better heart rate control, with a few brief elevations during exertion. Echocardiogram with normal LVEF Continued digoxin. - Jun 19: rate still controlled, but concern that tremor and anorexia and ms supression a/w digoxin toxicity, wrote to hold 06/20 digoxin and repeat levels - Jun 20: Rate good, digoxin high, but not severe enough for antidote. Hold and get daily levels. MS slightly imrpoved already. (2) Sepsis due to pneumonia: Status: Resolved Assessment and plan: Septic on admission with likely RLL PNA with immunocompromise Treatted for CAP with ceftriaxone, levofloxacin 5 day course of antibiotics completed Jun 18 (3) Non-ST elevated myocardial infarction (non-STEMI): Status: Resolved Assessment and plan: Mild elevation to 130 before Troponins trended down c/w type 2 NSTEMI related to atrial fibrillation/rate. (4) Type 2 diabetes mellitus: Status: Chronic Assessment and plan: Last known A1C 5.5 in February, 6.9% 06/20 No longer on insulin at home Started semaglutide this year, not getting here. Continue SSI (5) Acute on chronic kidney failure: Status: Acute Assessment and plan: CKD stage 3, baseline creatinine around 1.4 Challenging fluid balance with poor urine output vs painful edema and possible heart failure Diuresis was been paused on admission in favor of fluid resuscitation to increase urine output Worsening creatinine after resuming furosemide. FENa 06/19 0.1% c/w prerenal. Echo 06/18 not c/w high IVC pressure. Metolazone and furosemide held 06/19. -06/20 give a gentle liter of LR as his oral intake has been less on digoxin with high levels. Encouraged oral intake. Continue monitoring renal function and urine output, keep verma until this improves for close monitoring. (6) Venous stasis dermatitis of both lower extremities: Status: Acute Assessment and plan: Pitting edema minimal 06/20 Echo showing EF 55-60%, poor study quality but he does not appear to have active HFrEF (7) Primary malignant colorectal neoplasm: Status: Acute Assessment and plan: Started folfox in March, oncologist is Dr Luo at [facility] oncology Next (and last) chemotherapy is scheduled for Jun 21, will have to defer, discuss with cancer center in AM (8) Tremor: Status: Acute Assessment and plan: New since admission. Not typical with digoxin toxicity. Chemo toxicity? Lytes okay. Doesn't appear classic asterixis, ammonia normal. Improving 06/20 with some imrpovement of mental status, continue to monitor. Subjective Subjective Patient reports: no new complaints and shortness of breath; denies diarrhea, vomiting or fever Interval history since last seen: Feeling a little better. No chest pain or palpitations. Aopetite still not great. He choked after eating again this morning. Exam Narrative Exam Narrative: General: This is a pleasant, elderly man, fatigued appearing, well-nourished CV: irregular rate, irregular rhythm. 2/6 systolic murmur. trace BLE edema with stigmata of venous stasis Resp: soft bibasilar rales Abd: soft, NTND Neuro: awake, alert, no focal deficits. Slight tremor with hands extended, no asterixis. Speech at little more fluid today. Objective Last Vital Signs Temp 36.1 C L 06/20/25 11:10 Pulse 74 06/20/25 11:10 Resp 16 06/20/25 11:10 BP 106/61 06/20/25 11:10 Pulse Ox 95 06/20/25 11:10 Laboratory Results - last 24 hr 06/20/25 06/20/25 06:45 06:47 Sodium 133 L Potassium 3.9 Chloride 99 Carbon Dioxide 21.6 Anion Gap 12.4 H BUN 64 H Creatinine 2.9 H Est GFR (CKD-EPI 2020) 20.68 Glucose 127 H Hemoglobin A1c 6.9 H Calcium 8.1 L Ammonia < 10 L Digoxin 4.75 H* Time Spent with Patient Time Spent with Patient: 35-49 minutes Time was spent: preparing to see the patient(eg.review tests), obtaining and/or reviewing separately otained hiistory, ordering medications,tests, procedures, referring, communicating with other health patient care nursing assistant, indepentently interpreting results, counseling the patient and care coordination
[2025-06-20] MEDS: valACYclovir 500 MG TAB PO ×2 (15:30→19:54)
[2025-06-20] MEDS: Ferrous Sulfate 325 MG TAB PO (15:31)
[2025-06-20] MEDS: amLODIPine 5 MG TAB 10 MG PO (19:55)
[2025-06-20] MEDS: Atorvastatin 40 MG TAB PO (19:55)
[2025-06-20] MEDS: Cyanocobalamin 500 MCG TAB 1000 MCG PO (19:55)
[2025-06-21] VITALS (21 sets, daily range): BP systolic 100–130; BP diastolic 41–100; PULSE 56–85; RESP 15–19; TEMP 35.5–36.2; O2SAT 91–97
[2025-06-21 06:08] LABS: Anion Gap 10.6 mmol/L (3-11); BUN 68 mg/dL (7-18); CO2 22.4 mmol/L (21.0-32.0); Calcium 8.4 mg/dL (8.5-10.1); Chloride 100 mmol/L (98-107); Estimated GFR 21.57 (mL/min/1.73m2); Glucose 116 mg/dL (74-106); Potassium 3.9 mmol/L (3.5-5.1); Sodium 133 mmol/L (136-145)
[2025-06-21 07:26] LABS: Digoxin 4.22 ng/mL (0.90-2.00)
[2025-06-21] MEDS: Apixaban 5 MG TAB PO (08:09)
[2025-06-21] MEDS: Lisinopril 20 MG TAB 40 MG PO (08:09)
[2025-06-21] MEDS: Cholecalciferol (Vitamin D3) 1,000 UNIT TAB 2000 UNITS PO (08:09)
[2025-06-21] MEDS: Cyanocobalamin 500 MCG TAB 1000 MCG PO ×2 (08:09→21:07)
[2025-06-21] MEDS: Allopurinol 100 MG TAB PO (08:09)
[2025-06-21] MEDS: valACYclovir 500 MG TAB PO (08:10)
[2025-06-21] MEDS: Citalopram 20 MG TAB 10 MG PO (08:10)
[2025-06-21] MEDS: cloNIDine 0.1 MG TAB 0.2 MG PO ×2 (08:18→21:06)
[2025-06-21] MEDS: Budesonide/Formoterol 160/4.5 6 GM 60 PUFF INH IH ×2 (08:31→19:48)
[2025-06-21] MEDS: Umeclidinium 7 CAP INHALER 1 CAP IH (08:31)
[2025-06-21] MEDS: Lactated Ringers 250 ML IV (10:35)
--- NOTE | 2025-06-21 10:44 | PT.INTREAT ---
PT Notes Visit Reasons: Pneumonia; Atrial Fibrillation; Hypomagnesemia Date: 06/21/2025 PRECAUTIONS: Fall, standard, Activity as tolerated. SUBJECTIVE: :Patient reports he is wanting to get out of the bed. OBJECTIVE: Pt now on oxygen at 2 L/Min ,SCD bilateral LE, IV line on left antecubital, CPAP machine. ? VITALS: monitored Via telemetry throughout Therapeutic Activities 14836: Direct one-on-one instruction in dynamic activities to improve functional performance. ?? BED MOBILITY/TRANSFERS? Rolling L/R: max A? ?for repositioning ? supine to sit with Max A of 2 and use of insulation cutter and former pad to scoot to edge. sit to stand at FWW with Mod A of 2 step turn with FWW bed to chair Mod A of 2 and SBA of 1 stand to sit with Mod A of 2 and verbal cue to bend his knees and keep head forward. Provided skilled cues and instruction on performance and technique throughout. ASSESSMENT:Pt with increased tremor RUE while seated at EOB. Pt able to tolerate step turn transfer with FWW with assist of 2-3. Continue to Recommend Nursing staff to utilize Steady Lift with 2 assist for transfer due to B LE instability and risk for BLE buckling . Pt able to lateral step to the left with mod A of 2 and SBA of 1 in AM. PLAN: Continue with balance training, global strengthening and general conditioning for improved safety, mobility and activity tolerance until pt is ready for DC. D/C Recommendations: Short term SNF TREATMENT CODE/TIME: 91792/ 2753-5497
[2025-06-21] MEDS: Acetaminophen 325 MG TAB 650 MG PO (11:44)
--- NOTE | 2025-06-21 12:40 | W.SPSTP ---
Date of service: 06/21/25 Time of Service: 12:00 Subjective Subjective: Patient received alert/awake initially with family. Objective: Patient Positioning: upright in bed Oxygen Tolerance: tolerating room air Oral Hygiene: completed recently PO Trials Assessed: IDDSI 0 Thin Liquids IDDSI 5 Minced and Moist Solid (cut up peaches) Oral Phase Findings: Prolonged oral phase/chewing Delayed with a-p transport No pocketing/residue Pharyngeal Phase Findings: WFL for minimal trials assessed Assessment/Impression: Andres was seen today for dysphagia re-assessment. He stated he is 'not eating much' which is primarily due to low appetite. He did acknowledge disliking puree food but stated it's not just that, I don't feel like eating. Per chart, patient only ate 2-3 bites of breakfast. With PO trials today he tolerated cut diced peaches and sips of water without overt s/s aspiration. High fatigability noted. Recommend diet upgrade to minced/moist solids in hope to encourage PO intake with increased dietary options and more appetizing textures, though highly recommend to continue to order 1-2 naturally pureed items per tray to reduce mastication/deglutition demands. Continue strict aspiration precautions as outlined below. Plan: Frequency: 1-2 x week for 2 weeks Recommendation at Discharge: TBD, do not anticipate will need MACHINE SILVER STRIPPER services at discharge Diet Recommendations: 5-Minced & Moist Solids 0-Thin Liquids MEDICATIONS: Whole vs cut With 4-Purees followed by liquid wash Level of Assistance/Supervision: 1:1Assistive feeding only by trained staff/family for energy conservation/cueing Positioning and environment: PO intake only when awake/alert? Reduce auditory and/or visual distractions when eating Up to chair Oral hygiene Before/after PO intake Using friction with toothbrush on all oral structures as tolerated Strategies/Adaptations/Assistive Equipment: Small sips Small bites Slow rate of intake Alternate intake of liquids and solids Reflux Precautions: Small+frequent meals throughout day Maintain fully upright position at least 30 minutes after meals Avoid meals/snacks 2-3 hours prior to reclining/sleeping Sleep with head of bed elevated to reduce likelihood of nocturnal reflux Education Provided to: Patient, family Topics Addressed: aspiration precautions, diet recommendations Total Time: 1200-1215tx, 15 min
[2025-06-21] MEDS: Insulin Aspart 300 UNITS/3 ML PEN SC (13:08)
[2025-06-21] MEDS: Ferrous Sulfate 325 MG TAB PO (13:49)
--- NOTE | 2025-06-21 14:24 | CMPROGNOTE_ITS ---
Date of service: 06/21/25 Time of Service: 14:24 Care Management Progress Note Progress Note Text Progress Note Text: CM attempted to meet with Andres; however, he was lying in bed and did not respond to verbal stimuli at the time of the visit. Nursing staff report that his mental status is gradually improving. He remains on telemetry monitoring, and his heart rate has been observed dropping into the 30s. Additionally, the RN reported a small open area near his coccyx. Andres received a visit from family members earlier in the day. He was evaluated by Speech Therapy today; See their documentation. Andres is currently being re-evaluated clinically by [facility], as he did not receive his scheduled dose of chemotherapy today due to hospitalization. At this time, it is unclear whether he will continue with chemotherapy, which may impact his eligibility for SNF placement, depending on the plan of care. CM will continue to follow and coordinate with SNF options as more information becomes available. Discharge Potential Discharge Needs: PCP F/U Appt Anticipated Barriers to Discharge: None Identified Patient/Family Education Needs: Review discharge instructions, discuss Ask Me Three Transportation: Private vehicle Plan: Anticipate Andres will be discharged to SNF with previous accepted bed offer at [facility]. It is recommended that Andres follow up with community providers, oncologist, palliative care and discharge plan of care. Andres will be discharged via private vehicle. CM will continue to follow. Social Determinants of Health Screening Social Determinants of health last assessed in clinic: 06/21/25 Will the Patient Participate in the Screening?: Yes Do you worry about having a steady place to live?: no Problems where you live: inadequate lighting In the past 12 months, have you had to go without electric, gas, oil or water in your home?: no 1. Within the past 12 months, we worried whether our food would run out before we got money to buy more.: Never true 2. Within the past 12 months, the food we bought just didn't last and we didn't have money to get more.: Never true Has lack of transportation kept you from medical appointments or from doing things needed for daily living?: no Has anyone in your life made you feel unsafe or unsupported?: no How hard is it for you to pay for the very basics like food, housing, medical care, and heating? Would you say it is:: Not hard at all Do you want help finding or keeping work or a job?: I do not need or want help If for any reason you need help with day-to-day activities such as bathing, preparing meals, shopping, managing finances, etc., do you get the help you need?: I don?t need any help How often do you feel lonely or isolated from those around you?: Never Do you speak a language other than [place] at home?: No Comments: electrical issue with ceiling light in living room, unsure what, but needs help from an electrician technician. Plumbing issue with pump that provides water - has water but very poor water pressure - no leaks that he knows of but too expensive to fix right now without help (pt states $1400). Transportation [employer] Helper broken, new one purchased but needs to be installed. Health Related Social Needs Health related social needs: inadequate housing (Z59.1) Health related social needs details: electrical issue with ceiling light in living room, unsure what, but needs help from an electrician technician. Plumbing issue with pump that provides water - has water but very poor water pressure - no leaks that he knows of but too expensive to fix right now without help (pt states $1400). Transportation [employer] Helper broken, new one purchased but needs to be installed.
--- NOTE | 2025-06-21 14:50 | W.PM.PROGNOT ---
Date of Service Date of service: 06/21/25 Time of Service: 14:50 Assessment and Plan Assessment and plan (1) Toxic metabolic encephalopathy: Status: Acute Assessment and plan: New since admission. Initially a/w tremor, which has improved. I think this is likely digoxin toxicity, given timing. Lytes okay. He has cirrhosis but Doesn't appear classic asterixis, ammonia normal. Improving 06/20 with some imrpovement of mental status, but still well below baseline. continue to monitor. (2) Atrial tachycardia: Status: Acute Assessment and plan: Unclear rhythm initially, but was in atrial fibrillation per cardiology with RVR, moved to ICU for rate control Was on diltiazem drip, stopped after home clonidine and home furosemide were given HR in the 100's after interventions, with return to atach > 150 [facility] cardiology consulted, advised digoxin load 06/16 - Jun 16: BP low after 3rd dose of digoxin 50 IV. Digoxin held overnight. Then PO started. - Jun 17: Elevated digoxin levels, felt consistent with load. Continued oral digoxin. - Jun 18: Much better heart rate control. Echocardiogram with normal LVEF. Continued digoxin. - Jun 19: rate still controlled, but concern that tremor and anorexia and depressed MS as above a/w digoxin toxicity, wrote to hold 06/20 digoxin and repeat levels - Jun 20: Digoxin high, but not severe enough for antidote. Levels trending down slowly, slow MS imrpovement. (3) Sepsis due to pneumonia: Status: Resolved Assessment and plan: Septic on admission with likely RLL PNA with immunocompromise Treatted for CAP with ceftriaxone, levofloxacin 5 day course of antibiotics completed Jun 18 On oxygen overnight but this likely a/w SAMMI. Change parameters for O2 given COPD history. (4) Non-ST elevated myocardial infarction (non-STEMI): Status: Resolved Assessment and plan: Mild elevation to 130 before Troponins trended down c/w type 2 NSTEMI related to atrial fibrillation/rate. Has not had chest pain. (5) Type 2 diabetes mellitus: Status: Chronic Assessment and plan: Last known A1C 5.5 in February, 6.9% 06/20 No longer on insulin at home Started semaglutide this year, not getting here. Continue SSI (6) Acute on chronic kidney failure: Status: Acute Assessment and plan: CKD stage 3, baseline creatinine around 1.4 Challenging fluid balance with poor urine output and concern for heart failure Diuresis was been paused on admission in favor of fluid resuscitation to increase urine output Worsening creatinine after resuming furosemide. FENa 06/19 0.1% c/w prerenal. Echo 06/18 not c/w high IVC pressure. Metolazone and furosemide held 06/19. -06/20 gave a gentle liter of LR, some improvement in U/o over 24h but not great. -additional boluses today, then maintenance as long as he isn't eating/drinking well. -d/c verma until urine output stable in normal range and MS improved. (7) Primary malignant colorectal neoplasm: Status: Acute Assessment and plan: Started folfox in March, oncologist is Dr Luo at [facility] oncology Next (and last) chemotherapy is scheduled for Jun 21, will have to defer, discuss with cancer center when close to discharge. Subjective Subjective Patient reports: denies diarrhea, vomiting, shortness of breath or fever Interval history since last seen: Events: Given liter fluid over 10 hours yesterday Placed on 1 liter NC overnight, now off He denies pain, cough, SOB. He isn't eating. Family is worried he is still so sleepy and not eating/drinking. Exam Narrative Exam Narrative: General: This is a pleasant, elderly man, fatigued appearing, well-nourished CV: irregular rate, irregular rhythm. 2/6 systolic murmur. trace BLE edema with stigmata of venous stasis Resp: soft bibasilar rales Abd: soft, NTND Neuro: awake, alert, oriented to self/place, no focal deficits. Later in day somnolent, but arouses. tremor minimal, no asterixis. Speech fluid today. Objective Last Vital Signs Temp 36.0 C L 06/21/25 10:56 Pulse 73 06/21/25 10:56 Resp 15 06/21/25 10:56 BP 100/44 L 06/21/25 10:56 Pulse Ox 95 06/21/25 10:56 Laboratory Results - last 24 hr 06/21/25 05:32 Sodium 133 L Potassium 3.9 Chloride 100 Carbon Dioxide 22.4 Anion Gap 10.6 BUN 68 H Creatinine 2.8 H Est GFR (CKD-EPI 2020) 21.57 Glucose 116 H Calcium 8.4 L Digoxin 4.22 H* Time Spent with Patient Time Spent with Patient: 35-49 minutes Time was spent: preparing to see the patient(eg.review tests), obtaining and/or reviewing separately otained hiistory, ordering medications,tests, procedures, referring, communicating with other health career development coordinator/teacher, indepentently interpreting results, counseling the patient and care coordination
[2025-06-21] MEDS: Lactated Ringers 500 ML IV (15:47)
--- NOTE | 2025-06-21 16:10 | PHA.ACLINAW ---
Renal Dosing Renal Dosing: Acute on chronic renal failure: Crcl=24ml/min BUN 68 mg/dL (7-18) H 06/21/25 05:32 Creatinine 2.8 mg/dL (0.70-1.30) H 06/21/25 05:32 Medications needing adjustments: Intervened (Decreased apixaban from 5mg to 2.5mg bid, allopurinol from 100mg to 50mg po daily, and valtrex from 500mg tid to 500mg daily) Anticoagulation Anticoagulation: Hgb 10.5 g/dL (13.5-17.5) L 06/19/25 05:50 Hct 32.6 % (40.0-50.0) L 06/19/25 05:50 Plt Count 128 10^3/uL (130-400) L 06/19/25 05:50 INR 1.0 (0.9-1.1) 06/14/25 01:15 Creatinine 2.8 mg/dL (0.70-1.30) H 06/21/25 05:32 Relevant Labs Relevant Labs: Sodium 133 mmol/L (136-145) L 06/21/25 05:32 Potassium 3.9 mmol/L (3.5-5.1) 06/21/25 05:32 Chloride 100 mmol/L (98-107) 06/21/25 05:32 Magnesium 2.0 mg/dL (1.8-2.4) 06/17/25 05:25 DM Control DM Control: Glucose 116 mg/dL (74-106) H 06/21/25 05:32 Hemoglobin A1c 6.9 % (<5.7) H 06/20/25 06:47 Finger Stick Blood Glucose 173 Finger Stick Blood Glucose 173 Cardiac Review Cardiac Review: Troponin I 121 ng/L (<or=76) H* 06/14/25 13:25 NT-Pro-B Natriuret Pep 2675 pg/mL (<300) H 06/14/25 01:15 Comments Comments/Follow Ups: monitor for improved renal function and potential to increase doses back up
[2025-06-21] MEDS: amLODIPine 5 MG TAB 10 MG PO (21:05)
[2025-06-21] MEDS: Apixaban 2.5 MG TAB PO (21:06)
[2025-06-21] MEDS: Atorvastatin 40 MG TAB PO (21:06)
[2025-06-22] VITALS (22 sets, daily range): BP systolic 100–129; BP diastolic 33–49; PULSE 50–75; RESP 16–19; TEMP 35.7–36.1; O2SAT 93–96
--- NOTE | 2025-06-22 | DI.RAD_ITS ---
Exam(s) XR PORTABLE CHEST AP EXAM: XR PORTABLE CHEST AP CLINICAL HISTORY: increased SOB TECHNIQUE: 2D digital imaging was performed. COMPARISON: CR XR CHEST 2V PA LATERAL from 09/21/[address] CHEST PE CTA from 06/14/2025 FINDINGS: Exam is limited by multiple overlying monitoring leads at the lung bases. LUNGS: The lungs are suboptimally inflated. There is mild blunting at both costophrenic angles. Increased densities are again noted at the right lung base. HEART: Enlarged. A port is noted with the tip at the cavoatrial junction. AORTA: Normal diameter. BONES: Unremarkable for age. Soft tissues: Unremarkable. IMPRESSION: Limited exam. Right lower lobe pneumonia is again noted. DATA REPOSITORY: RADIATION DOSE DELIVERED:
--- NOTE | 2025-06-22 | DI.US_ITS ---
Exam(s) US RENAL EXAM: US RENAL CLINICAL HISTORY: NELLY on CKD, active colon ca, has verma, low u/a. TECHNIQUE: Tolentino scale imaging and color doppler were used. COMPARISON: CT CT CHEST/ABD/PEL W from 03/07/[address] CHEST PE CTA from 06/14/2025 FINDINGS: Exam is limited by patient body habitus. Ascites is present in the pelvis. There is a small amount of fluid around the liver. There is has increased when compared the previous CT. Liver appears cirrhotic. The portal vein is dilated to 1.8 cm.. Right kidney: 9.7 x 4.8 x 5.7cm Echogenicity: Normal Hydronephrosis: No Cyst or mass: Several small cysts. Largest 1 cm. Nephrolithiasis: No Left kidney: 9.4 x 4.3 x 6.9cm Echogenicity: Normal Hydronephrosis: No Cyst or mass: 2 centimeter cyst lower pole. Other smaller cysts noted. Nephrolithiasis: No Bladder:Not visualized. IMPRESSION: No evidence of hydronephrosis. Multiple bilateral small renal cysts. Ascites and cirrhotic liver. DATA REPOSITORY:
[2025-06-22 06:48] LABS: Abs Immature Grans 0.62 10^3/uL (0.0-0.06); HCT 30.9 % (40.0-50.0); HGB 10.2 g/dL (13.5-17.5); Immature Grans % 7.5 %; MCH 28.3 pg (27.0-33.0); MCHC 33.0 % (32.0-36.0); MCV 86 fL (80-95); MPV 10.5 fL (8.0-11.0); Platelet Count 163 10^3/uL (130-400); RBC 3.61 10^6/uL (4.36-5.78); RDW 20.1 % (11.8-14.1); RDW-SD 60.8 fL; WBC 8.29 10^3/uL (4.4-10.8)
[2025-06-22 07:08] LABS: Anion Gap 11.5 mmol/L (3-11); BUN 72 mg/dL (7-18); CO2 22.5 mmol/L (21.0-32.0); Calcium 8.5 mg/dL (8.5-10.1); Chloride 100 mmol/L (98-107); Estimated GFR 20.68 (mL/min/1.73m2); Glucose 114 mg/dL (74-106); Magnesium 2.2 mg/dL (1.8-2.4); Potassium 3.8 mmol/L (3.5-5.1); Sodium 134 mmol/L (136-145)
[2025-06-22 07:38] LABS: Anisocytosis 2+; Polychromasia Present
[2025-06-22 07:39] LABS: Poikilocytes 2+
[2025-06-22 07:45] LABS: Digoxin 4.04 ng/mL (0.90-2.00)
[2025-06-22] MEDS: Apixaban 2.5 MG TAB PO ×2 (08:31→19:42)
[2025-06-22] MEDS: cloNIDine 0.1 MG TAB 0.2 MG PO ×2 (08:31→19:42)
[2025-06-22] MEDS: Citalopram 20 MG TAB 10 MG PO (08:31)
[2025-06-22] MEDS: Allopurinol 100 MG TAB 50 MG PO (08:31)
[2025-06-22] MEDS: valACYclovir 500 MG TAB PO (08:32)
[2025-06-22] MEDS: Cyanocobalamin 500 MCG TAB 1000 MCG PO ×2 (08:32→19:42)
[2025-06-22] MEDS: Acetaminophen 325 MG TAB 650 MG PO (08:32)
[2025-06-22] MEDS: Budesonide/Formoterol 160/4.5 6 GM 60 PUFF INH IH ×2 (08:38→19:59)
[2025-06-22] MEDS: Umeclidinium 7 CAP INHALER 1 CAP IH (08:38)
--- NOTE | 2025-06-22 08:45 | CMPROGNOTE_ITS ---
Date of service: 06/22/25 Time of Service: 13:16 Care Management Progress Note Progress Note Text Progress Note Text: Andres was in bed positioned in a chair-like setting and preparing to eat lunch when CM met with him. His and granddaughter were present and visiting at the time of the encounter. Per report, Andres is experiencing decreased oral intake and will be started on IV fluids. He is scheduled to receive a chest X- ray and a renal ultrasound for further evaluation. Per RN, the patient is experiencing shortness of breath, and his HR has been observed in the 30s. AIRPORT TRAFFIC CONTROLLER will continue to follow. [facility] continues to review Andres?s case clinically, and his placement offer with their facility remains active for when he is deemed medically stable and appropriate for transfer. Per the provider, there are plans to consult with oncology to further coordinate care. CM will continue to follow. Discharge Potential Discharge Needs: PCP F/U Appt Anticipated Barriers to Discharge: None Identified Patient/Family Education Needs: Review discharge instructions, discuss Ask Me Three Transportation: Private vehicle Plan: Anticipate Andres will be discharged to SNF with previous accepted bed offer at [facility]. It is recommended that Andres follow up with community providers, oncologist, palliative care and discharge plan of care. Andres will be discharged via private vehicle. CM will continue to follow. Social Determinants of Health Screening Social Determinants of health last assessed in clinic: 06/22/25 Will the Patient Participate in the Screening?: Yes Do you worry about having a steady place to live?: no Problems where you live: inadequate lighting In the past 12 months, have you had to go without electric, gas, oil or water in your home?: no 1. Within the past 12 months, we worried whether our food would run out before we got money to buy more.: Don't know/refused 2. Within the past 12 months, the food we bought just didn't last and we didn't have money to get more.: Don't know/refused Has lack of transportation kept you from medical appointments or from doing things needed for daily living?: no Has anyone in your life made you feel unsafe or unsupported?: no How hard is it for you to pay for the very basics like food, housing, medical care, and heating? Would you say it is:: Not hard at all Do you want help finding or keeping work or a job?: I do not need or want help If for any reason you need help with day-to-day activities such as bathing, preparing meals, shopping, managing finances, etc., do you get the help you need ?: I don?t need any help How often do you feel lonely or isolated from those around you?: Never Do you speak a language other than Mongolian at home?: No Comments: electrical issue with ceiling light in living room, unsure what, but needs help from an power plant electrician. Plumbing issue with pump that provides water - has water but very poor water pressure - no leaks that he knows of but too expensive to fix right now without help (pt states $1400). Industrial Ecology Technician broken, new one purchased but needs to be installed. Health Related Social Needs Health related social needs: inadequate housing (Z59.1) Health related social needs details: electrical issue with ceiling light in living room, unsure what, but needs help from an power plant electrician. Plumbing issue with pump that provides water - has water but very poor water pressure - no leaks that he knows of but too expensive to fix right now without help (pt states $1400). Industrial Ecology Technician broken, new one purchased but needs to be installed.
[2025-06-22] MEDS: Lactated Ringers 500 ML IV (08:50)
[2025-06-22] MEDS: Normal Saline Flush 10 ML SYR IVP (08:51)
--- NOTE | 2025-06-22 09:49 | W.PM.PROGNOT ---
Date of Service Date of service: 06/22/25 Time of Service: 09:50 Assessment and Plan Assessment and plan (1) Toxic metabolic encephalopathy: Status: Acute Assessment and plan: New since admission. Initially a/w tremor, which has improved. I think this is likely digoxin toxicity, given timing. Lytes okay. He has cirrhosis but Doesn't appear classic asterixis, ammonia normal, but with newly decompensated cirrhosis this doesn't rule out some degree of hepatic encephalopathy, will try conservative lactulose to see if helps mental status Improving 06/20 with some imrpovement of mental status, but still well below baseline. continue to monitor. (2) Atrial tachycardia: Status: Acute Assessment and plan: Unclear rhythm initially, but was in atrial fibrillation per cardiology with RVR, moved to ICU for rate control Was on diltiazem drip, stopped after home clonidine and home furosemide were given HR in the 100's after interventions, with return to atach > 150 [facility] cardiology consulted, advised digoxin load 06/16 - Jun 16: BP low after 3rd dose of digoxin 50 IV. Digoxin held overnight. Then PO started. - Jun 17: Elevated digoxin levels, felt consistent with load. Continued oral digoxin. - Jun 18: Much better heart rate control. Echocardiogram with normal LVEF. Continued digoxin. - Jun 19: rate still controlled, but concern that tremor and anorexia and depressed MS as above a/w digoxin toxicity, wrote to hold 06/20 digoxin and repeat levels Since 06/20 digoxin has remained high, with frequent episodes of bradycardia, but I still don't antidote is indicated. Levels trending down slowly, try to improve renal clearence. (3) Sepsis due to pneumonia: Status: Resolved Assessment and plan: Septic on admission with likely RLL PNA with immunocompromise Treatted for CAP with ceftriaxone, levofloxacin 5 day course of antibiotics completed Jun 18 On oxygen overnight but this likely a/w SAMMI. Repeat CXR 06/22 with no new findings (4) Non-ST elevated myocardial infarction (non-STEMI): Status: Resolved Assessment and plan: Mild elevation to 130 before Troponins trended down c/w type 2 NSTEMI related to atrial fibrillation/rate. Has not had chest pain. (5) Type 2 diabetes mellitus: Status: Chronic Assessment and plan: Last known A1C 5.5 in February, 6.9% 06/20 No longer on insulin at home Started semaglutide this year, not getting here. Continue SSI (6) Acute on chronic kidney failure: Status: Acute Assessment and plan: CKD stage 3a, baseline creatinine around 1.4 Challenging fluid balance with poor urine output and concern for heart failure, complicated by cirrhosis. Diuresis was been paused on admission in favor of fluid resuscitation to increase urine output Worsening creatinine after resuming furosemide. FENa 06/19 0.1% c/w prerenal. Echo 06/18 not c/w high IVC pressure. Metolazone and furosemide held 06/19. -06/20 gave a gentle liter of LR, some improvement in U/o over 24h but not great. -held lisinopril 06/21 -additional bolus 06/22 today, then continue maintenance as long as he isn't eating/drinking well. -continue vrema until urine output stable in normal range and MS improved. (7) Primary malignant colorectal neoplasm: Status: Acute Assessment and plan: Started folfox in March, oncologist is Dr Luo at [facility] [facility] Next (and last) chemotherapy was scheduled for Jun 21, will have to defer. I called and discussed with cancer center. DR. Luo's nurse with reach out with new f/u next week. (8) Cirrhosis: Assessment and plan: With portal HTN, mild ascites noted on 06/22 u/s. 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 This complicates his renal failure and overall prognosis. See above re: possible encephalopathy. Subjective Subjective Patient reports: no new complaints; denies vomiting, shortness of breath or fever Interval history since last seen: Events: 500ml bolus 06/21, u/s 500ml/24 hours Intermittently bradycardic, low DBPs He feels okay. no chest pain or other pain. Still tired and no appetite. He is drinking but not a lot. Exam Narrative Exam Narrative: General: This is a pleasant, elderly man, fatigued appearing but alert and oriented, NAD CV: irregular rate, irregular rhythm. 1/6 systolic murmur. trace BLE edema with stigmata of venous stasis Resp: slight rales right base, otherwise clear, no wheeze Abd: soft, NTND Neuro: No focal deficits. tremor minimal, no asterixis. Speech fluid today. Objective Last Vital Signs Temp 35.7 C L 06/22/25 07:39 Pulse 62 06/22/25 07:39 Resp 16 06/22/25 07:39 BP 123/43 L 06/22/25 07:39 Pulse Ox 96 06/22/25 07:39 Laboratory Results - last 24 hr 06/22/25 06:15 WBC 8.29 RBC 3.61 L Hgb 10.2 L Hct 30.9 L MCV 86 MCH 28.3 MCHC 33.0 RDW 20.1 H Plt Count 163 MPV 10.5 Immature Gran % 7.5 Neutrophils % 79.0 Band Neutrophils % 2 Lymphocytes % 3.0 Monocytes % 13.0 Eosinophils % 0.7 Basophils % 0.7 Metamyelocytes % 1 Myelocytes % 2 Nucleated RBC % 2.8 H Absolute Neutrophils 6.71 H Absolute Lymphocytes 0.25 L Absolute Monocytes 1.08 H Absolute Eosinophils 0.06 Absolute Basophils 0.06 RBC Morphology See Below Polychromasia Present Poikilocytosis 2+ Anisocytosis 2+ Sodium 134 L Potassium 3.8 Chloride 100 Carbon Dioxide 22.5 Anion Gap 11.5 H BUN 72 H Creatinine 2.9 H Est GFR (CKD-EPI 2020) 20.68 Glucose 114 H Calcium 8.5 Magnesium 2.2 Digoxin 4.04 H* Time Spent with Patient Time Spent with Patient: >50 minutes Time was spent: preparing to see the patient(eg.review tests), obtaining and/or reviewing separately otained hiistory, ordering medications,tests, procedures, referring, communicating with other health residential child care counselor, indepentently interpreting results, counseling the patient and care coordination
[2025-06-22] MEDS: POTASSIUM CHLORIDE/D5-0.45NACL 1,000 ML 100 MEQ IV ×2 (10:01→19:38)
[2025-06-22] MEDS: Cholecalciferol (Vitamin D3) 1,000 UNIT TAB 2000 UNITS PO (10:06)
--- NOTE | 2025-06-22 10:16 | PT.INNT ---
PT Notes Visit Reasons: Pneumonia; Atrial Fibrillation; Hypomagnesemia Pt deferred from PT intervention this morning as per nurse Talley, pt is having a difficult time breathing and is scheduled for a chest X-ray, will try again later in the afternoon if pt condition improves.
[2025-06-22] MEDS: Ferrous Sulfate 325 MG TAB PO (12:23)
--- NOTE | 2025-06-22 14:41 | PT.INTREAT ---
PT Notes Visit Reasons: Pneumonia; Atrial Fibrillation; Hypomagnesemia Date: 06/22/2025 PRECAUTIONS: Fall. Standard. Activity as tolerated. SUBJECTIVE: pt in bed eating lunch late this afternoon, re-approached for therapy session later after pt finished with his meal. pt did not eat much. OBJECTIVE: ? PAIN: none reported VITALS: Closely monitored by nursing via telemetry Therapeutic Activities 93922: Direct one-on-one instruction in dynamic activities to improve functional performance. ?? BED MOBILITY/TRANSFERS? Rolling L/R: max A Supine-sit: ?max A? Sit-supine: ? max A? Sit-stand: ? not performed? Stand-sit: ??not performed ? Bed-Chair:? ?not performed ? Chair-bed: not performed Provided skilled cues and instruction on performance and technique throughout. Therapeutic Activities 29683: instruction in dynamic activities with one on one patient contact by the provider to improve functional performance?as follows: bed mobility transitioning from semi reclined to long sitting x2 max A 2mins each, BLE side to side movement ASSESSMENT:?pt too exhausted after activity and reported he is having difficulty breathing, pt situated in semi fowlers position to help with breathing. PLAN: Continue with balance training, global strengthening and general conditioning for improved safety, mobility and activity tolerance until pt is ready for DC. TREATMENT CODE/TIME: [id number] 26mins (2:10-2:36pm)
--- NOTE | 2025-06-22 14:59 | INPN_ITS ---
PT Notes Visit Reasons: Pneumonia; Atrial Fibrillation; Hypomagnesemia Inpatient Physical Therapy Progress Note Date: 06/22/2025 Dates of Service: 06/15/2025-06/22/2025 PRECAUTIONS: CPAP, IV access, open area to buttocks; Oxygen, modified diet. No straws. SUBJECTIVE: Pt reports he can not catch his breath. Pt on CPAP at this time OBJECTIVE PAIN: buttocks 6/10 BED MOBILITY/TRANSFERS Rolling L/R: Max A of 2 Supine-sit: Max A of 2 Sit-supine: Max A of 2 Sit-stand: Mod A of 2 with cues for hands Stand-sit: Mod A of 2 and cues to bend knees to sit Chair to/ from bed: Mod A of 2 with CGA of 3rd person with FWW GAIT pt has declined in ability to ambulate from 30 feet with FWW with CGA to now being unable to take steps. VITALS: monitored via telemetry THEREX: Instruction in the following exercises, with encouragement to complete between PT sessions: Ankle pumps 10x with legs elevated LAQ 10x quad sets 10x shoulder horizontal ADD 10x STAIRS: Unable ASSESSMENT: Patient is an 84 year old male referred to physical therapy services in acute care setting where he is being medically managed for pneumonia with A- fib with RVR. Patient presents with markedly impaired mobility related to A-fib with RVR, and is unsafe for transfers beyond supine to sit today. He has demonstrated significant decline in functional and medical decline since evaluation. He would continue to benefit from skilled PT services to maximize functional mobility prior to discharge to home. He currently demonstrates the following impairment level findings: 1. Decreased activity tolerance 2. Decreased functional strength 3. Poor rate control with functional movement 4. impaired functional activity tolerance 5. impaired skin integrity Buttocks/coccyx Impairments are contributing to the following functional limitations: 1. Unable to independently perform bed mobility 2. Unable to tolerate sitting position d/t pain 3. Unable to ambulate 4. impaired transfer skills Patient is assessed as High 10948 complexity based on the following: History: As above Examination: As above Presentation: unstable medical condition Decision Making: High complexity Goals: Not met continue all goals Goals X1 week 1. Supine-Sit : Supervision 2. Sit-Supine : Supervision 3. Sit-Stand : Supervision 4. Stand-Sit : Supervision 5. Bed-Chair : Supervision with FWW 6. Chair-Bed : Supervision with FWW 7. Gait : Supervision with FWW x 25' Plan of Care/Treatment Plan: 1-2x/day, 7 days/week x 1 week. Plan of care has been reviewed with the APPARATUS REPAIR MECHANIC providing the service under Physical Therapy direction. Initiate Physical Therapy intervention for strengthening, bed mobility, transfers, gait, stairs, balance training, use of assistive device. DISCHARGE RECOMMENDATIONS: [] SNF for continued rehabilitation TREATMENT CODE/TIME:43156/ [id number]
[2025-06-22] MEDS: Lactulose 20 GM/30 ML CUP PO ×2 (15:46→19:43)
[2025-06-22] MEDS: Insulin Aspart 300 UNITS/3 ML PEN SC ×2 (17:34→21:37)
[2025-06-22] MEDS: Atorvastatin 40 MG TAB PO (19:43)
[2025-06-22] MEDS: amLODIPine 5 MG TAB 10 MG PO (19:43)
[2025-06-23] VITALS (36 sets, daily range): BP systolic 53–143; BP diastolic 40–80; PULSE 38–79; RESP 10–26; TEMP 35.8–36.8; O2SAT 90–96
--- NOTE | 2025-06-23 | DI.CT_ITS ---
Exam(s) CT ABDOMEN PELVIS WO EXAM: CT ABDOMEN PELVIS WO CLINICAL HISTORY: h/o cirrhosis, new pain, focal swelling RLQ. TECHNIQUE: Imaging Protocol: Axial computed tomography images with coronal and sagittal reformatted images were created and reviewed. Oral: no COMPARISON: CT CT CHEST/ABD/PEL W from 03/07/[address] CHEST PE CTA from 06/14/2025 FINDINGS: Lung Bases: Consolidation again noted in the right lower lobe. There are bilateral pleural calcifications. Small right pleural effusion. There is a new small left pleural effusion and adjacent atelectasis. Liver: Nodular contour consistent with cirrhosis. Prominent portal vein. No suspicious mass. Gallbladder and biliary tract: Cholecystectomy. No biliary dilation. Pancreas: Normal density. No abnormal calcifications or inflammatory process. Spleen: Normal. Kidneys: Normal size, contour and axis. No radiodense stones. No obstructive uropathy. No suspicious masses seen. Bilateral cysts are again noted. Adrenal glands: No masses seen. Lymph nodes: Within normal limits. Vasculature: Abdominal aorta non-dilated. Atherosclerotic calcification. Soft tissues: Significant edema in the lateral abdominal subcutaneous fat, particularly on the right. Diffuse muscular atrophy. Bladder: Partially decompressed by Ureña catheter. Not well visualized due to streak artifact from right hip prosthesis. Bowel: The small bowel is mildly dilated and partially fluid filled. No findings to suggest obstruction. The colon shows no significant wall thickening. There is a moderate quantity of stool. Duodenal diverticulum. Peritoneal cavity: A moderate to large quantity of ascites is now presents seen around the liver, spleen and particularly right side of the abdomen as and extending into the pelvis. No focal collection. No mesenteric inflammatory response. Reproductive organs: Unremarkable. Bones: Unremarkable for age. No fractures are identified. Right hip prosthesis. IMPRESSION: Right lower lobe consolidation. New small left pleural effusion. Cirrhotic liver. Moderate to large quantity of ascites greater on the right side of the abdomen. Significant right lateral soft tissue edema. Mildly distended fluid-filled small bowel, nonspecific. No findings to suggest obstruction. The preliminary [facility] report was reviewed. RADIATION DOSE DELIVERED: Total DLP DATA REPOSITORY: All CT scans at this facility are submitted to the National Radiology Data Registry (NRDR) Dose Index Registry (DIR) with the [employer] (A[employer]). RADIATION OPTIMIZATION: All CT scans at this facility use at least one of these dose optimization techniques: automated exposure control; mA and/or kV adjustment per patient size (includes targeted exams where dose is matched to clinical indication); or iterative reconstruction.
[2025-06-23] MEDS: POTASSIUM CHLORIDE/D5-0.45NACL 1,000 ML 100 MEQ IV ×2 (05:14→15:15)
[2025-06-23 07:31] LABS: Anion Gap 13.2 mmol/L (3-11); BUN 72 mg/dL (7-18); CO2 20.8 mmol/L (21.0-32.0); Calcium 8.3 mg/dL (8.5-10.1); Chloride 98 mmol/L (98-107); Estimated GFR 20.68 (mL/min/1.73m2); Glucose 190 mg/dL (74-106); Potassium 3.9 mmol/L (3.5-5.1); Sodium 132 mmol/L (136-145)
[2025-06-23 07:34] LABS: Digoxin 3.40 ng/mL (0.90-2.00)
[2025-06-23] MEDS: Budesonide/Formoterol 160/4.5 6 GM 60 PUFF INH IH ×2 (07:39→19:51)
[2025-06-23] MEDS: Umeclidinium 7 CAP INHALER 1 CAP IH (07:39)
[2025-06-23] MEDS: Clopidogrel 75 MG TAB PO (08:04)
[2025-06-23] MEDS: Cyanocobalamin 500 MCG TAB 1000 MCG PO ×2 (08:04→20:14)
[2025-06-23] MEDS: Allopurinol 100 MG TAB 50 MG PO (08:04)
[2025-06-23] MEDS: Apixaban 2.5 MG TAB PO ×2 (08:04→20:12)
[2025-06-23] MEDS: Lactulose 20 GM/30 ML CUP PO (08:04)
[2025-06-23] MEDS: valACYclovir 500 MG TAB PO (08:04)
[2025-06-23] MEDS: Cholecalciferol (Vitamin D3) 1,000 UNIT TAB 2000 UNITS PO (08:05)
[2025-06-23] MEDS: Citalopram 20 MG TAB 10 MG PO (08:05)
[2025-06-23] MEDS: Insulin Aspart 300 UNITS/3 ML PEN SC ×4 (08:06→23:14)
--- NOTE | 2025-06-23 10:30 | RT.EKG_ITS ---
APPROVED REPORT Exam: Resting ECG Reason for Exam: digoxin toxicty, some low BPs, giancarlo Patient Location: I HR:60 bpm ECG Measurements Heart Rate 60 AXIS SC [id number] P [id number] QRSd 87 QRS 15 QT 390 T 214 QTc 390 Conclusion Atrial fibrillation...? atrial activity Low voltage, precordial leads...precordial leads <1.0mV Baseline wander in lead(s) V6
--- NOTE | 2025-06-23 10:34 | DI.[facility]_ITS ---
PROCEDURE INFORMATION: Exam: CT Abdomen And Pelvis Without Contrast Exam date and time: 06/23/2025 9:54 AM Age: 84 years old Clinical indication: Abdominal pain; Other: Rlq; Additional info: Patient leaking fluid on the right side TECHNIQUE: Imaging protocol: Computed tomography of the abdomen and pelvis without contrast. COMPARISON: CT CHEST/ABD/PEL W 03/07/2025 2:02 PM FINDINGS: Limitations: Body wall and right hemiabdomen are incompletely imaged. No contrast was administered, limiting evaluation for some pathologies. Artifact from metallic hardware limits evaluation of the surrounding tissues. Lungs: Interstitial and airspace opacities in both lungs. Pleural spaces: Pleural calcifications. Small bilateral pleural effusions. Coronary arteries: Coronary artery calcifications. Liver: Cirrhotic liver. Hepatomegaly. Gallbladder and biliary ducts: Cholecystectomy. Pancreas: No CT evidence for acute pancreatitis. Spleen: No splenomegaly. Adrenal glands: No mass. Kidneys and ureters: Bilateral renal cysts. Nonobstructing bilateral renal calculi. Stomach and bowel: Apparent gastric thickening commensurate with underdistention. Duodenal diverticulum. No intestinal obstruction is evident. Fluid in nondilated small bowel, nonspecific. Appendix: No evidence of appendicitis. Intraperitoneal space: Moderate ascites, incompletely imaged. Vasculature: Extensive arterial calcifications. Lymph nodes: Nonspecific mesenteric and retroperitoneal lymph nodes. Urinary bladder: Ureña catheter and air in the urinary bladder. The bladder appears thickened but is incompletely distended and suboptimally evaluated. Reproductive: No acute findings. Bones/joints: Right hip prosthesis. Artifact limits evaluation of the surrounding tissues. Soft tissues: Anasarca. Induration of the subcutaneous fat in the anterior abdominal wall. This is incompletely imaged. Abdominal wall laxity. Gynecomastia. IMPRESSION: 1. Study limitations as above. 2. Cirrhosis with ascites. 3. Fluid in nondilated small bowel, nonspecific and can be a normal finding or reflective of mild inflammation. 4. Edema of the subcutaneous fat, may reflect bland edema or cellulitis. This is incompletely imaged. Correlate clinically. 5. Bilateral pleural effusions. Interstitial and airspace opacities in both lungs suspicious for infection. Follow-up advised. 6. Additional findings as above. Dictated and Authenticated by: Jocelyne Herrera MD. Orderin Estefani Michel MD
[2025-06-23 11:12] LABS: Abs Immature Grans 0.45 10^3/uL (0.0-0.06); HCT 32.2 % (40.0-50.0); HGB 10.2 g/dL (13.5-17.5); Immature Grans % 3.7 %; MCH 27.8 pg (27.0-33.0); MCHC 31.7 % (32.0-36.0); MCV 88 fL (80-95); MPV 10.4 fL (8.0-11.0); Platelet Count 168 10^3/uL (130-400); RBC 3.67 10^6/uL (4.36-5.78); RDW 21.2 % (11.8-14.1); RDW-SD 65.0 fL; WBC 12.01 10^3/uL (4.4-10.8)
[2025-06-23 11:22] LABS: INR 1.1 (0.9-1.1); Prothrombin Time 10.9 sec (9.1-11.1)
[2025-06-23 11:24] LABS: Anisocytosis 2+; Poikilocytes 2+
[2025-06-23 11:26] LABS: Ammonia 17 umol/L (11-32)
[2025-06-23 11:28] LABS: ALT 19 U/L (16-63); AST 42 U/L (15-37); Albumin 1.6 g/dL (3.4-5.0); Alkaline Phosphatase 167 U/L (46-116); Bilirubin, Direct 0.3 mg/dL (0.0-0.2); Bilirubin, Total 0.7 mg/dL (0.2-1.0); Total Protein 5.5 g/dL (6.4-8.2)
[2025-06-23 11:32] LABS: Troponin I 51 ng/L (<or=76)
--- NOTE | 2025-06-23 12:22 | W.SURGCON ---
Date of service: 06/23/25 Time of Service: 12:22 Assessment and Plan Assessment and plan (1) SBP (spontaneous bacterial peritonitis): Status: Acute Assessment and plan: 84-year-old man with many problems, currently in the ICU and trending in a worse direction clinically although unclear exactly why. I think the likelihood of SBP is extremely low, but we can certainly get some fluid out to test and rule it out. Considering his overall picture, I support palliative care measures and management. I realized the patient has been resistant to these ideas, but that is probably the direction he is clinically progressing towards at this time. I discussed the risks and benefits with the patient. In particular the risks include nondiagnostic results - that is probably the biggest risk. Namely, that removing a little bit of fluid is not can provide any answers to why the fluid is there and it is unlikely the cause of him being so sick. He wants to have it done. PLAN: U/S guided paracentesis for diagnostic purposes only History of Present Illness Narrative: 84-year-old man patient multiple medical problems. Per report and patient history he gives himself, he has been getting active chemotherapy for nonoperative colorectal cancer. Per report it seems he has been tolerating this. He has cirrhosis but has never had ascites related to this on any prior imaging. He has been hospitalized for a number of reasons for the last week or so and has been slowly worsening. He was moved back into ICU this morning. He now has significant amounts of ascites. Medical team wants to rule out SBP. At the bedside the patient denies any abdominal pain. [facility] All Active Problems (Updated 06/23/25 @ 12:28 by Janes Santiago MD) SBP (spontaneous bacterial peritonitis) (Acute) Toxic metabolic encephalopathy (Acute) Tremor (Acute) Acute on chronic kidney failure (Acute) Advance care planning (Acute) Venous stasis dermatitis of both lower extremities (Acute) Immunocompromised state due to drug therapy (Chronic) Atrial tachycardia (Acute) Pneumonia (Acute) Sepsis (Acute) Cystic kidney disease, acquired (Acute) Edema of both lower extremities (Acute) Megaloblastic anemia due to B12 deficiency (Acute) Restrictive lung disease (Acute) Cyst of kidney, acquired (Acute) Primary malignant colorectal neoplasm (Acute) Bradycardia (Acute) Barretts esophagus (Acute) Generalized anxiety disorder (Acute) Neuropathy due to type 2 diabetes mellitus (Acute) Type 2 diabetes mellitus (Chronic) Chronic kidney disease, stage 3 (Acute) Essential hypertension (Acute) Obstructive sleep apnea syndrome (Chronic) Iron deficiency anemia (Acute) Screening for malignant neoplasm of skin (Acute) Abnormal skin growth (Acute) Actinic keratoses (Acute) Seborrheic keratoses (Acute) Disorder of the skin and subcutaneous tissue, unspecified (Acute) Leg wound, right (Acute) Umbilical hernia (Acute) Hyperlipidemia (Chronic) Hypertension (Chronic) Obesity (Chronic) Sleep apnea (Chronic) COPD (chronic obstructive pulmonary disease) (Chronic) GERD (gastroesophageal reflux disease) (Chronic) Gout (Chronic) Stasis dermatitis of both legs (Chronic) Anemia (Acute) Diabetes mellitus type 2 in obese (Acute) Sinus bradycardia (Acute) 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) (Acute) Cellulitis of leg, right (Acute) Chronic venous stasis dermatitis of both lower extremities (Acute) COPD (chronic obstructive pulmonary disease) (Chronic) DVT prophylaxis (Acute) Ulcer of right lower leg (Acute) Venous stasis (Acute) Venous stasis ulcer of ankle limited to breakdown of skin (Acute) Leg length discrepancy (Acute 02/09/18) Primary osteoarthritis of right knee (Acute 11/01/17) Mitral valve regurgitation (Chronic) CVA (cerebral vascular accident) (Chronic) CKD stage 3 due to type 2 diabetes mellitus (Acute) Diabetic neuropathy (Acute) ORVILLE positive (Acute) Onychomycosis (Acute) Medical History (Updated 06/23/25 @ 12:28 by Janes Santiago MD) Gout Severe obesity Tinnitus Hernia of anterior abdominal wall Family history of malignant neoplasm of prostate Proteinuria Idiopathic stabbing headache Antinuclear factor positive History of CVA (cerebrovascular accident) without residual deficits Kidney mass COVID Cutaneous abscess of abdominal wall Slurred speech Weakness Diabetic ulcer of right lower leg associated with diabetes mellitus due to underlying condition, with fat layer exposed Renal insufficiency Cirrhosis Cellulitis Hx TIA/stroke w/o resid SAMMI on CPAP HLD (hyperlipidemia) HTN (hypertension) Venous stasis ulcer right lateral calf Acute kidney injury (nontraumatic) Scalp hematoma Chest wall contusion Syncope Diabetes mellitus Community acquired pneumonia With hypoxia and bronchospasm. Surgical History History of surgery Debridement of right leg wound with Apligraf History of cholecystectomy H/O rectal sphincterotomy History of appendectomy History of total right hip arthroplasty Family History Father , age 63 Heart disease Stroke Hypertension Mother , age 101 No problems noted. Brother Prostate cancer Other Neoplasm Social History Smoking/Tobacco Use Status: Former Tobacco Use Quit Date: 03/06/84 Smoking risk assessment performed?: Yes Alcohol Intake: never Drug use: Never Substance use type: does not use Housing: house Current gender identity: male Do you feel safe at home: Yes Do you feel safe in your relationship?: Yes Exam Narrative Exam Narrative: Gen: Lethargic, mildly toxic, but is overall comfortable and interactive. He is morbidly obese. Lots of chronic-appearing skin breakdown visible on his arms Neuro: Alert and oriented x3 Psych: Tired mood and affect. Seemingly reasonable insight and understanding into conditions in his history. Abdomen: Soft, moderate distention with fluid wave, no tenderness whatsoever Results Last Vital Signs Temp 96.6 F L 06/23/25 11:23 Pulse 52 L 06/23/25 11:23 Resp 24 06/23/25 11:23 BP 116/75 06/23/25 11:23 Pulse Ox 95 06/23/25 11:23 Labs 06/23/25 11:00 06/23/25 06:47 Labs: Laboratory Results - last 24 hr 06/23/25 06/23/25 06:47 11:00 WBC 12.01 H RBC 3.67 L Hgb 10.2 L Hct 32.2 L MCV 88 MCH 27.8 MCHC 31.7 L RDW 21.2 H Plt Count 168 MPV 10.4 Immature Gran % 3.7 Neutrophils % 80.1 Lymphocytes % 1.7 Monocytes % 13.7 Eosinophils % 0.3 Basophils % 0.5 Nucleated RBC % 1.6 H Absolute Neutrophils 9.62 H Absolute Lymphocytes 0.20 L Absolute Monocytes 1.65 H Absolute Eosinophils 0.04 Absolute Basophils 0.06 RBC Morphology See Below Poikilocytosis 2+ Anisocytosis 2+ PT 10.9 INR 1.1 Sodium 132 L Potassium 3.9 Chloride 98 Carbon Dioxide 20.8 L Anion Gap 13.2 H BUN 72 H Creatinine 2.9 H Est GFR (CKD-EPI 2020) 20.68 Glucose 190 H Calcium 8.3 L Total Bilirubin 0.7 Conjugated Bilirubin 0.3 H AST 42 H ALT 19 Alkaline Phosphatase 167 H Ammonia 17 Troponin I 51 Total Protein 5.5 L Albumin 1.6 L Digoxin 3.40 H*
--- NOTE | 2025-06-23 12:43 | W.PC.ACHO ---
Registration Status: ADM IN Primary Language: Preferred Language: Upper Sorbian ED Information & Data Chief Complaint Fall/Non TraumaCriteria 06/14/25 01:47 Triage Note BIBEMS, fall at home, no LOC 06/14/25 01:04 , pt states legs just gave out. weakness, uses cane baseline. SOB w/ exertion, HR 140-150s afib, no known afib. HR 80s on transport. denies chest pain. got ~ 500ml. 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 due to underlying condition, with fat layer exposed Renal insufficiency Cirrhosis Cellulitis Hx TIA/stroke w/o resid SAMMI on CPAP HLD (hyperlipidemia) HTN (hypertension) Venous stasis ulcer Acute kidney injury (nontraumatic) Scalp hematoma Chest wall contusion Syncope Diabetes mellitus Community acquired pneumonia (Last Reviewed 12/28/24 @ 10:39 by Yanet Francis DPM) History of surgery History of cholecystectomy H/O rectal sphincterotomy History of appendectomy History of total right hip arthroplasty Most Recent Vital Signs Temperature 35.9 C L 06/23/25 11:23 Temperature Source Temporal Artery Scan 06/23/25 11:23 Pulse 52 L 06/23/25 11:23 Pulse Rhythm Irregular 06/14/25 06:44 Pulse 87 06/17/25 15:00 Respiratory Rate 24 06/23/25 11:23 Respiratory Effort Incrsd Work of Breathing 06/14/25 07:42 Respiratory Depth Normal 06/14/25 07:42 Respiratory Pattern Tachypnea 06/14/25 07:42 Blood Pressure 116/75 06/23/25 11:23 Blood Pressure Mean 88 06/23/25 11:23 Blood Pressure Position Supine 06/14/25 07:42 Pulse Oximetry 95 06/23/25 11:23 Oxygen Delivery Method Room Air 06/23/25 11:23 Oxygen Flow Rate 0 06/23/25 11:23 Fraction of Inspired Oxygen (FIO2) 21 06/22/25 19:59 Pain Level 0 06/23/25 03:51 Comment nurse notified 06/22/25 03:19 Comment BP cuff site changed 06/16/25 22:28 Allergies cephalexin Adverse Reaction (Intermediate, Verified 06/14/25 01:35) genitourinary edema Pt denies allergy to medications Precautions Isolation Fall precaution 06/14/25 01:09 Active Medications Generic Name Dose Route Start Last Admin Trade Name Freq PRN Reason Stop Dose Admin Acetaminophen 650 mg 06/14/25 06:41 06/22/25 08:32 Acetaminophen 325 Mg Tab PO 650 mg Q6H PRN PRN Administration Allopurinol 50 mg 06/22/25 08:30 06/23/25 08:04 Allopurinol 100 Mg Tab PO 50 mg DAILY HENRY Administration Apixaban 2.5 mg 06/21/25 20:00 06/23/25 08:04 Apixaban 2.5 Mg Tab PO 2.5 mg BID HENRY Administration Atorvastatin Calcium 40 mg 06/14/25 20:00 06/22/25 19:43 Atorvastatin 40 Mg Tab PO 40 mg QPM HENRY Administration Budesonide/Formoterol Fumarate 2 puff 06/14/25 08:30 06/23/25 07:39 Budesonide/Formoterol 160/4.5 6 Gm 60 Puff Inh IH 2 puffs BID HENRY Administration Cholecalciferol 2,000 units 06/14/25 08:30 06/23/25 08:05 Cholecalciferol (Vitamin D3) 1,000 Unit Tab PO 2,000 units DAILY HENRY Administration Citalopram Hydrobromide 10 mg 06/15/25 08:30 06/23/25 08:05 Citalopram 20 Mg Tab PO 10 mg DAILY HENRY Administration Clonidine 0.2 mg 06/14/25 20:00 06/23/25 08:33 Clonidine 0.1 Mg Tab PO Not Given BID HENRY Clopidogrel Bisulfate 75 mg 06/23/25 08:30 06/23/25 08:04 Clopidogrel 75 Mg Tab PO 75 mg DAILY HENRY Administration Cyanocobalamin 1,000 mcg 06/14/25 08:30 06/23/25 08:04 Cyanocobalamin 500 Mcg Tab PO 1,000 mcg BID HENRY Administration Ferrous Sulfate 325 mg 06/15/25 12:00 06/22/25 12:23 Ferrous Sulfate 325 Mg Tab PO 325 mg DAILY@1200 HENRY Administration Sodium Chloride 500 mls @ 0 mls/hr 06/16/25 08:47 06/18/25 13:41 Saline 500ml Bag IV Infused PRN PRN Infusion As Directed Potassium Chloride/Sodium Chloride 1,000 mls @ 100 mls/hr 06/22/25 08:30 06/23/25 05:14 Kcl 20meq/D5-0.45% Nacl IV 100 mls/hr INFUSION HENRY Administration Insulin Aspart 0 units 06/14/25 12:00 06/23/25 11:48 Insulin Aspart 300 Units/3 Ml Pen SC 4 units 0800,1200,1700,2200 HENRY Administration Protocol Pantoprazole Sodium 40 mg 06/14/25 06:41 06/16/25 08:58 Pantoprazole 40 Mg Tabcr PO 40 mg DAILY PRN PRN Administration Sodium Chloride 0 ml 06/16/25 10:24 06/22/25 08:51 Normal Saline Flush 10 Ml Syr IVP 10 ml PRN PRN Administration Umeclidinium [place] 1 cap 06/14/25 08:30 06/23/25 07:39 Umeclidinium 7 Cap Inhaler IH 1 inh DAILY HENRY Administration Valacyclovir HCl 500 mg 06/22/25 08:30 06/23/25 08:04 Valacyclovir 500 Mg Tab PO 500 mg DAILY HENRY Administration IV IV Catheter Type [Left Upper Saline Lock Arm] IV Catheter Type [Right Saline Lock Forearm] IV Catheter Type [Left Saline Lock Antecubital] IV Catheter Gauge [Left Upper 20 Arm] IV Catheter Gauge [Right 20 Forearm] IV Catheter Gauge [Left 20 Antecubital] Diagnostics 06/23/25 06/23/25 Range/Units 11:00 06:47 WBC 12.01 H (4.4-10.8) 10^3/uL RBC 3.67 L (4.36-5.78) 10^6/uL Hgb 10.2 L (13.5-17.5) g/dL Hct 32.2 L (40.0-50.0) % MCV 88 (80-95) fL MCH 27.8 (27.0-33.0) pg MCHC 31.7 L (32.0-36.0) % RDW 21.2 H (11.8-14.1) % Plt Count 168 (130-400) 10^3/uL MPV 10.4 (8.0-11.0) fL Immature Gran % 3.7 % Neutrophils % 80.1 % Lymphocytes % 1.7 % Monocytes % 13.7 % Eosinophils % 0.3 % Basophils % 0.5 % Nucleated RBC % 1.6 H (0.0-0.3) % Absolute Neutrophils 9.62 H (1.2-6.7) 10^3/uL Absolute Lymphocytes 0.20 L (1.2-3.4) 10^3/uL Absolute Monocytes 1.65 H (0.1-0.8) 10^3/uL Absolute Eosinophils 0.04 (0.0-0.7) 10^3/uL Absolute Basophils 0.06 (0.0-0.2) 10^3/uL RBC Morphology See Below Poikilocytosis 2+ Anisocytosis 2+ PT 10.9 (9.1-11.1) sec INR 1.1 (0.9-1.1) Sodium 132 L (136-145) mmol/L Potassium 3.9 (3.5-5.1) mmol/L Chloride 98 (98-107) mmol/L Carbon Dioxide 20.8 L (21.0-32.0) mmol/L Anion Gap 13.2 H (3-11) mmol/L BUN 72 H (7-18) mg/dL Creatinine 2.9 H (0.70-1.30) mg/dL Est GFR (CKD-EPI 2020) 20.68 (mL/min/1.73m2) Glucose 190 H (74-106) mg/dL Calcium 8.3 L (8.5-10.1) mg/dL Total Bilirubin 0.7 (0.2-1.0) mg/dL Conjugated Bilirubin 0.3 H (0.0-0.2) mg/dL AST 42 H (15-37) U/L ALT 19 (16-63) U/L Alkaline Phosphatase 167 H (46-116) U/L Ammonia 17 (11-32) umol/L Troponin I 51 (<or=76) ng/L Total Protein 5.5 L (6.4-8.2) g/dL Albumin 1.6 L (3.4-5.0) g/dL Digoxin 3.40 H* (0.90-2.00) ng/mL 06/23/25 11:00 Blood Culture - Pending Blood 06/23/25 10:28 Blood Culture - Pending Blood [id number] Documentation Fingerstick Glucose Start: 06/14/25 08:28 Freq: .ACHS Status: Active Protocol: Activity Type Activity Date Activity User E-sign Co-sign Detail Recorded Client Recorded Date Recorded By Document 06/23/25 11:45 BKG DAEMON(3) [id number] 06/23/25 11:46 BKG DAEMON(4) Intake and Output - 24 Hour Total 06/14/25 00:50 thru 06/23/25 08:55 Intake Total 68432.534 Output Total 6550 Balance 26155.534 Weight 115.4 kg [place]: [place] [address].534 Oral 7456 Output: Urine 6550 Other: Urine Color Yellow Urine Appearance Clear Urine Odor Normal Comment no void during my shift: patient frequently bladder scanned, verma placed per dr order. Stool Size Moderate Stool Characteristics Liquid Urinary Catheter Urinary Catheter Date of 06/18/25 Insertion [Urethral (Verma)] Time of insertion [Urethral ( 18:06 Verma)] Falls Risk Assessment History of Falls Admit Due to Fall 06/14/25 07:42 Contributing Factors Unstable,Impairments, 06/14/25 07:42 Incontinence,Medications Ambulatory Aids Uses ambulatory device + 06/14/25 07:42 Tubes/Lines With any additional score 06/14/25 07:42 Gait Evaluation W/any additional score 06/14/25 07:42 Cognition No cognitive impairment 06/14/25 07:42 Fall Total Score 107 06/14/25 07:42 Level of Risk Maximum Risk 06/14/25 07:42 Problems (Last Updated 05/18/25 @ 09:19 by Charmaine Bowers CMA) SBP (spontaneous bacterial peritonitis) (Acute) Toxic metabolic encephalopathy (Acute) Tremor (Acute) Acute on chronic kidney failure (Acute) Advance care planning (Acute) Venous stasis dermatitis of both lower extremities (Acute) Immunocompromised state due to drug therapy (Chronic) Atrial tachycardia (Acute) Pneumonia (Acute) Sepsis (Acute) Primary malignant colorectal neoplasm (Acute) Type 2 diabetes mellitus (Chronic) Chronic kidney disease, stage 3 (Acute) CKD stage 3 due to type 2 diabetes mellitus (Acute) Notes 06/17/25 20:28 Nursing Notes by Noman Terrell Nursing Note: Patient had a low temperature at 35.6 temporal temperature. Rechecked via tympanic temp probe and got 34.6. Placed patient on bear hugger at this time at 38 degrees Celsius. Initialized on 06/17/25 20:28 - END OF NOTE 06/14/25 15:41 Nursing Notes by Kathrine Castrejon Access chart to reconcile EKG orders with EKG's in [facility]. Nursing Note: Initialized on 06/14/25 15:41 - END OF NOTE 06/14/25 07:50 Nursing Notes by Reina Acuna Nursing Note: Transfer patient to ICU. Gave report to the receiving nurse at ICU. Initialized on 06/14/25 07:50 - END OF NOTE 06/14/25 03:56 Nursing Notes by Mary Jane Peralta Nursing Note:0201 diltiazem not given/acknowledged at this time due to provider verbal cancellation due to HR and rhythm at time. Initialized on 06/14/25 03:56 - END OF NOTE v v v v v v v v v Sending and/or Receiving Nurses: Please use comment section below to note any information pertinent to the patient hand-off not included above. Information / Comments: Report received from: Enid Casillas RN @ 11:25 06/23
--- NOTE | 2025-06-23 12:53 | PGE_ITS ---
Date of Service Date of service: 06/23/25 Time of Service: 12:53 Assessment and Plan Assessment and plan (1) Digoxin toxicity: Status: Acute Assessment and plan: Symtomatic since 06/19 Levels were never severely elevated, peak was 4.75 with downtrend, but with low GFR this is not resolving quickly. I am more concerned today as bradycardic episodes have continued and BP newly lower despite holding lisinopril. EKG without major changes, has shown some minor ST changes that could be digoxin toxicity, increasingly frequent bradycardic episodes down to 29 bpm on tele Given this, I ordered digifab, we don't stock, likely to arrive 06/24 To ICU for closer hemodynamic monitoring (2) Abdominal tenderness: Status: Acute Assessment and plan: May be related to bruising and increased ascites but I think prudent to cover SBP and rule out with paracentesis, appreciate Dr. Santiago's help. WBC is incrased to 12 from 8 Start meropenem and dapto until blood/peritoneal fluid culture back. Cultures of blood/fluid pending. (3) Toxic metabolic encephalopathy: Status: Acute Assessment and plan: New since admission. Initially a/w tremor, which has improved. I think this is likely digoxin toxicity, given timing. See above. He improved initially but hasn't cleared. No response to lactulose, I don't think hepatic encephalopathy. This may be multifactorial with complex illness and organ dysfunction. (4) Atrial tachycardia: Status: Acute Assessment and plan: Triggered by sepsis Unclear rhythm initially, but was in atrial fibrillation per cardiology with RVR, moved to ICU for rate control Was on diltiazem drip, [facility] [place] cardiology consulted, advised digoxin load 06/16 Rate was much better controlled by 06/18. Echocardiogram with normal LVEF without fluid overload On 06/19 concern that tremor and anorexia and depressed MS as above a/w digoxin toxicity, has been held since then see above re: dig toxicity (5) Non-ST elevated myocardial infarction (non-STEMI): Status: Resolved Assessment and plan: Mild elevation to 130 before Troponins trended down c/w type 2 NSTEMI related to atrial fibrillation/rate. Has not had chest pain, repeat 06/23 trended down further to 51 in normal range. (6) Type 2 diabetes mellitus: Status: Chronic Assessment and plan: Last known A1C 5.5 in February, 6.9% 06/20 No longer on insulin at home Started semaglutide this year, not getting here. Continue SSI. FS have been higher, if they continue >180, start low dose glargine (7) Acute on chronic kidney failure: Status: Acute Assessment and plan: CKD stage 3a, baseline creatinine around 1.4 Challenging fluid balance with poor urine output and concern for heart failure, complicated by cirrhosis. Diuresis was been paused on admission in favor of fluid resuscitation to increase urine output Worsening creatinine after resuming furosemide. FENa 06/19 0.1% c/w prerenal. Echo 06/18 not c/w high IVC pressure. Metolazone and furosemide held 06/19. -06/20 gave a gentle liter of LR, some improvement in U/o over 24h but not great. -held lisinopril 06/21 -additional bolus 06/22 then continued maintenance as long as he isn't ea ting/drinking well. U/o improved 06/22 but minimal so far 06/23 -continue verma until urine output stable in normal range and MS improved, follow u/o (8) Primary malignant colorectal neoplasm: Status: Acute Assessment and plan: Started folfox in March, oncologist is Dr Luo at [facility] Next (and last) chemotherapy was scheduled for Jun 21, will have to defer. I called and discussed with cancer center. DR. Luo's nurse with reach out with new f/u next week. (9) Cirrhosis: Assessment and plan: With portal HTN, mild ascites noted on 06/22 u/s. 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 This complicates his renal failure and overall prognosis. Worse ascites on CT 06/24. (10) Decubitus ulcer of coccyx, stage 2: Status: Acute Assessment and plan: Continue wound care and offloading. Stop lactulose, which makes this more difficult to keep clean. (11) Intertriginous candidiasis: Status: Acute Assessment and plan: nystatin powder. Subjective Subjective Patient reports: denies nausea, vomiting or fever Interval history since last seen: Events: On fluids overnight Started on lactulose, liquid stools overnight Ongoing bradycardic episodes as low as 29 on telemetry No improvement in mental status per nursing. Andres feels about the same. Nurses noted more abdominal distention and area that is pretuberant and leaking fluid from skin in RLQ. He is still not eating much at all, drinking little. No SOB now, but SOB when moving around more. Exam Narrative Exam Narrative: General: Alert, oriented, fatigued and uncomfortable, NAD CV: irregular rate and rhythm, rate in 50s. 1/6 systolic murmur. trace BLE edema with stigmata of venous stasis Resp: slight rales right base, otherwise clear, no wheeze Abd: soft, more distended with protuberant area in RLQ, tender in mid and right side of abdomen to palpation. +shifting dullness. Neuro: No focal deficits. tremor minimal, asterixis. Speech about the same. Objective Last Vital Signs Temp 35.9 C L 06/23/25 11:23 Pulse 52 L 06/23/25 11:23 Resp 24 06/23/25 11:23 BP 116/75 06/23/25 11:23 Pulse Ox 95 06/23/25 11:23 Laboratory Results - last 24 hr 06/23/25 06/23/25 06:47 11:00 WBC 12.01 H RBC 3.67 L Hgb 10.2 L Hct 32.2 L MCV 88 MCH 27.8 MCHC 31.7 L RDW 21.2 H Plt Count 168 MPV 10.4 Immature Gran % 3.7 Neutrophils % 80.1 Lymphocytes % 1.7 Monocytes % 13.7 Eosinophils % 0.3 Basophils % 0.5 Nucleated RBC % 1.6 H Absolute Neutrophils 9.62 H Absolute Lymphocytes 0.20 L Absolute Monocytes 1.65 H Absolute Eosinophils 0.04 Absolute Basophils 0.06 RBC Morphology See Below Poikilocytosis 2+ Anisocytosis 2+ PT 10.9 INR 1.1 Sodium 132 L Potassium 3.9 Chloride 98 Carbon Dioxide 20.8 L Anion Gap 13.2 H BUN 72 H Creatinine 2.9 H Est GFR (CKD-EPI 2020) 20.68 Glucose 190 H Calcium 8.3 L Total Bilirubin 0.7 Conjugated Bilirubin 0.3 H AST 42 H ALT 19 Alkaline Phosphatase 167 H Ammonia 17 Troponin I 51 Total Protein 5.5 L Albumin 1.6 L Digoxin 3.40 H* Time Spent with Patient Time Spent with Patient: >50 minutes Time was spent: preparing to see the patient(eg.review tests), obtaining and/or reviewing separately otained hiistory, ordering medications,tests, procedures, referring, communicating with other health rn progressive care unit, indepentently interpreting results, counseling the patient and care coordination
[2025-06-23] MEDS: Normal Saline 500 ML 30 ML IV (14:17)
[2025-06-23] MEDS: Ferrous Sulfate 325 MG TAB PO (14:30)
[2025-06-23] MEDS: Nystatin POWDER 60 GM JAR TP ×2 (14:38→21:25)
--- NOTE | 2025-06-23 14:46 | W.PM.OP ---
Operative Note Operative Note Refer to Anesthesia Record Procedure Description: Procedure performed: Ultrasound-guided paracentesis PreOperative Diagnosis: SBP PostOperative Diagnosis: ascites Surgeon: May Santiago Assist: None Anesthesia: local 1% Lidocaine (10cc) Anesthesiologist: None Indication: Hospitalist team wants to rule out SBP in a cirrhotic patient with new ascites Findings: ~60cc of straw-colored, clear ascitic fluid was removed for analysis Complications: None Estimated Blood Loss: Minimal Specimens removed: Ascitic fluid - (tests to be determined/ordered by hospitalist team) Grafts or implants: No Procedure in detail: Consent was obtained from the patient in writing, who was in agreement with the risks, the unlikely benefit and the indications for the procedure. We had a discussion prior to performing the procedure. Using ultrasound guidance, a site in the right maria esther-abdomen with significant ascitic fluid underneath the abdominal wall was identified. In standard fashion, local anesthetic was injected at the site in the skin, and then deep until aspiration confirmed intraperiteonal administration. I aspirated 50-60cc of clear ascitic fluid into the syringe and sent it to the lab for analysis. The needle was removed and a band-aid put on top. The sponge, instrument and sharps count was correct x3 at the end of the procedure. The patient tolerated the procedure well and was comfortable throughout and there were no complications. Date of Procedure: 06/23/25
[2025-06-23 15:07] LABS: Polynuclear Cells 49 %
[2025-06-23] MEDS: DAPTOmycin 500 MG in Normal Saline 50 ML 100 MG IVPB (15:37)
[2025-06-23 15:44] LABS: MRSA PCR Negative (Negative)
[2025-06-23] MEDS: Lidocaine 1% Multi-Dose 20 ML VIAL (16:02)
[2025-06-23] MEDS: Normal Saline-STERILE FIELD 0.9% 10 ML SYR (16:13)
[2025-06-23] MEDS: Atorvastatin 40 MG TAB PO (20:13)
[2025-06-23] MEDS: Acetaminophen 325 MG TAB 650 MG PO (20:13)
[2025-06-23] MEDS: Pantoprazole 40 MG TABCR PO (20:13)
[2025-06-23 22:12] LABS: Glucose, Fluid 151 mg/dL (See Note)
[2025-06-24] VITALS (43 sets, daily range): BP systolic 90–148; BP diastolic 27–89; PULSE 36–118; RESP 8–25; TEMP 35.6–36.7; O2SAT 90–98
[2025-06-24] MEDS: Normal Saline Flush 10 ML SYR IVP ×5 (00:20→19:49)
[2025-06-24] MEDS: POTASSIUM CHLORIDE/D5-0.45NACL 1,000 ML 100 MEQ IV ×3 (01:30→23:52)
[2025-06-24 06:13] LABS: HCT 31.3 % (40.0-50.0); HGB 10.0 g/dL (13.5-17.5); MCH 27.9 pg (27.0-33.0); MCHC 31.9 % (32.0-36.0); MCV 87 fL (80-95); MPV 10.2 fL (8.0-11.0); Platelet Count 152 10^3/uL (130-400); RBC 3.59 10^6/uL (4.36-5.78); RDW 21.2 % (11.8-14.1); RDW-SD 65.0 fL; WBC 12.41 10^3/uL (4.4-10.8)
[2025-06-24 06:39] LABS: ALT 22 U/L (16-63); AST 34 U/L (15-37); Albumin 1.5 g/dL (3.4-5.0); Alkaline Phosphatase 162 U/L (46-116); Anion Gap 9.0 mmol/L (3-11); BUN 68 mg/dL (7-18); Bilirubin, Total 0.7 mg/dL (0.2-1.0); CO2 24.0 mmol/L (21.0-32.0); Calcium 8.1 mg/dL (8.5-10.1); Chloride 102 mmol/L (98-107); Estimated GFR 24.72 (mL/min/1.73m2); Glucose 187 mg/dL (74-106); Potassium 4.0 mmol/L (3.5-5.1); Sodium 135 mmol/L (136-145); Total Protein 5.3 g/dL (6.4-8.2)
[2025-06-24 06:42] LABS: Digoxin 3.22 ng/mL (0.90-2.00)
[2025-06-24] MEDS: Budesonide/Formoterol 160/4.5 6 GM 60 PUFF INH IH ×2 (07:54→19:38)
[2025-06-24] MEDS: Umeclidinium 7 CAP INHALER 1 CAP IH (07:54)
[2025-06-24] MEDS: Insulin Aspart 300 UNITS/3 ML PEN SC ×4 (08:20→22:27)
[2025-06-24] MEDS: cloNIDine 0.1 MG TAB 0.2 MG PO (08:21)
[2025-06-24] MEDS: valACYclovir 500 MG TAB PO (08:23)
[2025-06-24] MEDS: Citalopram 20 MG TAB 10 MG PO (08:24)
[2025-06-24] MEDS: Clopidogrel 75 MG TAB PO (08:28)
[2025-06-24] MEDS: Cyanocobalamin 500 MCG TAB 1000 MCG PO ×2 (08:28→19:49)
[2025-06-24] MEDS: Pantoprazole 40 MG TABCR PO (08:28)
[2025-06-24] MEDS: Cholecalciferol (Vitamin D3) 1,000 UNIT TAB 2000 UNITS PO (08:28)
[2025-06-24] MEDS: Allopurinol 100 MG TAB 50 MG PO (08:29)
[2025-06-24 10:05] LABS: INR 1.1 (0.9-1.1); Prothrombin Time 11.4 sec (9.1-11.1)
[2025-06-24] MEDS: Clotrimazole 1% 15 GM TUBE TP ×2 (10:55→16:30)
[2025-06-24] MEDS: Ferrous Sulfate 325 MG TAB PO (11:10)
[2025-06-24] MEDS: Nystatin POWDER 60 GM JAR TP ×3 (11:30→22:29)
--- NOTE | 2025-06-24 14:46 | W.PM.PROGNOT ---
Date of Service Date of service: 06/24/25 Time of Service: 14:46 Assessment and Plan Assessment and plan (1) Digoxin toxicity: Status: Acute Assessment and plan: -Symtomatic since 06/19 -Levels were never severely elevated, peak was 4.75 with downtrend, but with low GFR this is not resolving quickly and patient continued to be intermittently bradycardic down to 29bpm -additionally BP was also lower over previous two days despite holding lisinopril -EKG without major changes, has shown some minor ST changes that could be digoxin toxicity, increasingly frequent bradycardic episodes down to 29 bpm on tele -digifab was ordered and will be given on 06/24 (2) Abdominal tenderness: Status: Acute Assessment and plan: -likely related to bruising and increased ascites -initially covered for SBP, but ascitic fluid not consistent with SBP given polys only at 50 -WBC is incrased to 12 from 8 (3) Toxic metabolic encephalopathy: Status: Acute Assessment and plan: -New since admission. -Initially a/w tremor, which has improved. -could digoxin toxicity, given timing. See above. (4) Atrial tachycardia: Status: Acute Assessment and plan: -Triggered by sepsis -Unclear rhythm initially, but was in atrial fibrillation per cardiology with RVR, moved to ICU for rate control -Was on diltiazem drip, [facility] cardiology consulted, advised digoxin load 06/16 -Rate was much better controlled by 06/18. Echocardiogram with normal LVEF without fluid overload -On 06/19 concern that tremor and anorexia and depressed MS as above a/w digoxin toxicity, has been held since then -see above re: dig toxicity (5) Non-ST elevated myocardial infarction (non-STEMI): Status: Resolved Assessment and plan: -Mild elevation to 130 before Troponins trended down c/w type 2 NSTEMI related to atrial fibrillation/rate. -Has not had chest pain, repeat 06/23 trended down further to 51 in normal range. (6) Type 2 diabetes mellitus: Status: Chronic Assessment and plan: -Last known A1C 5.5 in February, 6.9% 06/20 -No longer on insulin at home -Started semaglutide this year, not getting here. -Continue SSI. FS have been higher, if they continue >180, start low dose glargine (7) Acute on chronic kidney failure: Status: Acute Assessment and plan: -CKD stage 3a, baseline creatinine around 1.4 -Challenging fluid balance with poor urine output and concern for heart failure, complicated by cirrhosis. -Diuresis was been paused on admission in favor of fluid resuscitation to increase urine output -Worsening creatinine after resuming furosemide. FENa 06/19 0.1% c/w prerenal. Echo 06/18 not c/w high IVC pressure. Metolazone and furosemide held 06/19. -06/20 gave a gentle liter of LR, some improvement in U/o over 24h but not great. -held lisinopril 06/21 -additional bolus 06/22 then continued maintenance as long as he isn't eating/drinking well. U/o improved 06/22 but minimal so far 06/23 -continue verma until urine output stable in normal range and MS improved, follow u/o -UOP ~200cc on 06/24, may need to restart diuretics given decrease UOP and edema (8) Primary malignant colorectal neoplasm: Status: Acute Assessment and plan: -Started folfox in March, oncologist is Dr Luo at [facility] -Next (and last) chemotherapy was scheduled for Jun 21, will have to defer. -previous physician discussed with cancer center. DR. Luo's nurse with reach out with new f/u next week. (9) Cirrhosis: Assessment and plan: -With portal HTN, mild ascites noted on 06/22 u/s. 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 This complicates his renal failure and overall prognosis. -Worse ascites on CT 06/24. (10) Decubitus ulcer of coccyx, stage 2: Status: Acute Assessment and plan: -Continue wound care and offloading. Stop lactulose, which makes this more difficult to keep clean. (11) Intertriginous candidiasis: Status: Acute Assessment and plan: -nystatin powder. Exam Narrative Exam Narrative: chronically ill appearing older gentleman laying in bed in no acute distress, awake, alert, oriented to person and place, heart irregularly irregular, rate between 30-70's, lungs CTAB, abdomen soft, non-tender, non-distended, bilateral LE edema Objective Last Vital Signs Temp 98.1 F 06/24/25 08:15 Pulse 50 L 06/24/25 12:01 Resp 19 06/24/25 12:01 BP 99/29 L 06/24/25 12:01 Pulse Ox 93 06/24/25 12:01 Laboratory Results - last 24 hr 06/23/25 06/23/25 06/24/25 13:05 13:30 05:35 WBC RBC Hgb Hct MCV MCH MCHC RDW Plt Count MPV PT INR Cancelled Sodium Potassium Chloride Carbon Dioxide Anion Gap BUN Creatinine Est GFR (CKD-EPI 2020) Glucose Calcium Total Bilirubin AST ALT Alkaline Phosphatase Total Protein Albumin Fluid Source Peritoneal Fluid Color Yellow Fluid Clarity Clear Fluid WBC 202 Fld Polynuclear WBCs % 49 Fluid Mononuclear Cell 51 Fluid Glucose 151 Fluid Albumin <1.0 Digoxin MRSA (TEM-PCR) Negative 06/24/25 06/24/25 05:45 09:42 WBC 12.41 H RBC 3.59 L Hgb 10.0 L Hct 31.3 L MCV 87 MCH 27.9 MCHC 31.9 L RDW 21.2 H Plt Count 152 MPV 10.2 PT 11.4 H INR 1.1 Sodium 135 L Potassium 4.0 Chloride 102 Carbon Dioxide 24.0 Anion Gap 9.0 BUN 68 H Creatinine 2.5 H Est GFR (CKD-EPI 2020) 24.72 Glucose 187 H Calcium 8.1 L Total Bilirubin 0.7 AST 34 ALT 22 Alkaline Phosphatase 162 H Total Protein 5.3 L Albumin 1.5 L Fluid Source Fluid Color Fluid Clarity Fluid WBC Fld Polynuclear WBCs % Fluid Mononuclear Cell Fluid Glucose Fluid Albumin Digoxin 3.22 H* MRSA (TEM-PCR) Time Spent with Patient Time Spent with Patient: >50 minutes Time was spent: preparing to see the patient(eg.review tests), obtaining and/or reviewing separately otained hiistory, ordering medications,tests, procedures, referring, communicating with other health career specialist, indepentently interpreting results, counseling the patient and care coordination
[2025-06-24] MEDS: Apixaban 2.5 MG TAB PO (19:48)
[2025-06-24] MEDS: Acetaminophen 325 MG TAB 650 MG PO (19:49)
[2025-06-24] MEDS: Atorvastatin 40 MG TAB PO (19:49)
[2025-06-25] VITALS (36 sets, daily range): BP systolic 101–142; BP diastolic 40–70; PULSE 48–81; RESP 12–25; TEMP 35–36; O2SAT 92–96
[2025-06-25 06:25] LABS: INR 1.1 (0.9-1.1); Prothrombin Time 10.9 sec (9.1-11.1)
[2025-06-25 06:51] LABS: HCT 29.5 % (40.0-50.0); HGB 9.6 g/dL (13.5-17.5); MCH 28.2 pg (27.0-33.0); MCHC 32.5 % (32.0-36.0); MCV 87 fL (80-95); MPV 10.9 fL (8.0-11.0); Platelet Count 142 10^3/uL (130-400); RBC 3.40 10^6/uL (4.36-5.78); RDW 21.9 % (11.8-14.1); RDW-SD 67.9 fL; WBC 11.77 10^3/uL (4.4-10.8)
[2025-06-25 06:59] LABS: Digoxin 4.21 ng/mL (0.90-2.00)
[2025-06-25 07:00] LABS: ALT 19 U/L (16-63); AST 29 U/L (15-37); Albumin 1.4 g/dL (3.4-5.0); Alkaline Phosphatase 154 U/L (46-116); Anion Gap 8.7 mmol/L (3-11); BUN 71 mg/dL (7-18); Bilirubin, Total 0.6 mg/dL (0.2-1.0); CO2 23.3 mmol/L (21.0-32.0); Calcium 8.2 mg/dL (8.5-10.1); Chloride 103 mmol/L (98-107); Estimated GFR 24.72 (mL/min/1.73m2); Glucose 182 mg/dL (74-106); Potassium 4.3 mmol/L (3.5-5.1); Sodium 135 mmol/L (136-145); Total Protein 5.2 g/dL (6.4-8.2)
--- NOTE | 2025-06-25 07:29 | PDOC.CMPRO ---
Date of service: 06/25/25 Time of Service: 07:29 Care Management Progress Note Progress Note Text Progress Note Text: Andres was sitting up in the bed, sleeping, when CM first approached him. His RN needed to wake him, so CM waited for him to rouse. Andres woke, but was still pretty sleepy. He smiled when CM stated her name. He was able to answer some questions, but with minimal response, mostly shaking his head yes or no. He said that he really hasn't been eating much, and his RN confirmed this. Andres appeared sickly. RN stated that he has not been out of bed and is very weak. CM was present when RN told Andres that he was having visitors from [place] this afternoon. Andres did respond with a smile. CM reached out to [facility] to check if the STR bed is still being held. Message was left. Discharge Potential Discharge Needs: Consult (oncology) and PCP F/U Appt Anticipated Barriers to Discharge: Medical Status Patient/Family Education Needs: Review discharge instructions, discuss Ask Me Three Transportation: Private vehicle Plan: Anticipate Andres will be discharged to SNF with previous accepted bed offer at [facility]. It is recommended that Andres follow up with community providers, oncologist, palliative care and discharge plan of care. Andres will be discharged via private vehicle. CM will continue to follow. Social Determinants of Health Screening Social Determinants of health last assessed in clinic: 06/25/25 Will the Patient Participate in the Screening?: Yes Do you worry about having a steady place to live?: no Problems where you live: inadequate lighting In the past 12 months, have you had to go without electric, gas, oil or water in your home?: no 1. Within the past 12 months, we worried whether our food would run out before we got money to buy more.: Don't know/refused 2. Within the past 12 months, the food we bought just didn't last and we didn't have money to get more.: Don't know/refused Has lack of transportation kept you from medical appointments or from doing things needed for daily living?: no Has anyone in your life made you feel unsafe or unsupported?: no How hard is it for you to pay for the very basics like food, housing, medical care, and heating? Would you say it is:: Not hard at all Do you want help finding or keeping work or a job?: I do not need or want help If for any reason you need help with day-to-day activities such as bathing, preparing meals, shopping, managing finances, etc., do you get the help you need?: I don?t need any help How often do you feel lonely or isolated from those around you?: Never Do you speak a language other than [place] at home?: No Comments: electrical issue with ceiling light in living room, unsure what, but needs help from an powerhouse electrician apprentice. Plumbing issue with pump that provides water - has water but very poor water pressure - no leaks that he knows of but too expensive to fix right now without help (pt states $1400). Clinical Leader broken, new one purchased but needs to be installed. Health Related Social Needs Health related social needs: inadequate housing (Z59.1) Health related social needs details: electrical issue with ceiling light in living room, unsure what, but needs help from an powerhouse electrician apprentice. Plumbing issue with pump that provides water - has water but very poor water pressure - no leaks that he knows of but too expensive to fix right now without help (pt states $1400). Clinical Leader broken, new one purchased but needs to be installed.
--- NOTE | 2025-06-25 08:07 | W.PULMCC ---
General Date of Service Date of service: 06/25/25 Time of Service: 07:30 Assessment and Plan Assessment and plan (1) Sleep apnea: Status: Chronic (2) COPD (chronic obstructive pulmonary disease): Status: Chronic (3) Atrial fibrillation: Status: Chronic (4) Ascites: Status: Acute (5) Acute on chronic kidney failure: Status: Acute (6) Primary malignant colorectal neoplasm: Status: Acute (7) ORVILLE positive: Status: Acute (8) Digoxin toxicity: Status: Acute Recommendations Pulmonary: Assessment: 1. Pulmonary infiltrates - was likely due to pneumonia - treated with courses of levaquin and rocephin 2. Pleural effusion - trace bilateral effusions on CT imaging - no significant change from 06/14 to 06/23 - could be due to cirrhosis or simple parapneumonic 3. Atrial Fibrillation - rate controlled. Bradycardic episodes have improved. HR 60's this AM. 4. Digoxin toxicity - s/p digibind on 06/24 5. Acute on chronic renal failure - Cr stable at 2.5. ~1.4 at baseline 6. Colorectal cancer - on chemotherapy (FolFox) 7. Ascites - could be related to ascites or colon cancer - initial ascites fluid analysis not consistent with SBP 8. 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 Cirrhosis 11. COPD - FEV1 64% in 2016. Not in exacerbation Recommendations: - at this time would hold on lasix or additional IV fluid administration. Can allow for PO hydration / nutrition. - follow up on remaining ascites fluid analysis (particularly pleural fluid cytology) - can hold on additional antibiotics at this time. His pneumonia seems to be well treated. No evidence of SBP on ascites fluid analysis - digoxin levels will be of limited utility since he was given digiFab - overall his mental status has improved. Can monitor in ICU today and if does well transfer out tomorrow Discussed with Dr. Vogel I&O: Intake & Output 06/22/25 06/23/25 06/24/25 06/25/25 23:59 23:59 23:59 23:59 Intake Total 2341.667 / 2341.667 2081.5 / 2081.5 3343.333 / 3343.333 Output Total 800 / 800 550 / 550 450 / 450 225 / 225 Balance 1541.667 / 3212.241 4514.5 / 1531.5 2893.333 / 2893.333 -225 / -225 Weight 115.4 kg 114.3 kg 114.7 kg 116.5 kg Date of Last Bowel Movement: 06/23/25 Code Status: Resuscitation Status Full Code Subjective Critical and life-threatening events over the past 24 hours: Patient is an 84 yo with a history of colon cancer, afib, COPD, cirrhosis, CKD, and SAMMI who was admitted on 06/14 for dyspnea, weakness, afib w RVR and pneumonia. CTa chest on admission showed RLL pneumonia and trace bilateral pleural effusions. A 1.4 cm ALIS ground glass opacity was also noted. He was treated with a course of levaquin and rocephin. Due to low BP and tachycardia, he was given digoxin during this admission. Later developed encephalopathy and bradycardia. Due to concern for digoxin toxicity, he was given digiFab on 06/24. Ascites fluid was sampled on 06/23. Fluid was not consistent with SBP. His mental status has significantly improved over the past day. Has brief episodes of bradycardia, which have been shortlived. HR normal this AM. He is awake and conversant. Denied chest pain or dyspnea. Has a cough with mild sputum production. Denied any hemoptysis. ROS: 10 pt ROS negative except as above Exam Narrative Exam Narrative: General: alert, no acute distress Head: normocephalic ENT: no stridor, trachea midline CV: normal rate, irregular rhythm Respiratory: no wheezing, no crackles, no rhonchi, no prolonged expiration GI: abd soft, non-tender, mild distension Skin: no rashes Extremities: +1 edema, no digital clubbing Neuro: moves all extremities, alert, conversant Psych: normal affect Most Recent VS/Results Last Vital Signs Temp 36 C L 06/25/25 03:30 Pulse 53 L 06/25/25 06:01 Resp 13 06/25/25 06:01 BP 140/49 L 06/25/25 06:01 Pulse Ox 94 06/25/25 06:01 Laboratory Results - last 24 hr 06/23/25 06/24/25 06/24/25 13:30 05:35 09:42 WBC RBC Hgb Hct MCV MCH MCHC RDW Plt Count MPV PT 11.4 H INR Cancelled 1.1 Sodium Potassium Chloride Carbon Dioxide Anion Gap BUN Creatinine Est GFR (CKD-EPI 2020) Glucose Calcium Total Bilirubin AST ALT Alkaline Phosphatase Total Protein Albumin Fluid Glucose 151 Fluid Albumin <1.0 Digoxin 06/25/25 05:48 WBC 11.77 H RBC 3.40 L Hgb 9.6 L Hct 29.5 L MCV 87 MCH 28.2 MCHC 32.5 RDW 21.9 H Plt Count 142 MPV 10.9 PT 10.9 INR 1.1 Sodium 135 L Potassium 4.3 Chloride 103 Carbon Dioxide 23.3 Anion Gap 8.7 BUN 71 H Creatinine 2.5 H Est GFR (CKD-EPI 2020) 24.72 Glucose 182 H Calcium 8.2 L Total Bilirubin 0.6 AST 29 ALT 19 Alkaline Phosphatase 154 H Total Protein 5.2 L Albumin 1.4 L Fluid Glucose Fluid Albumin Digoxin 4.21 H* Chest CT 06/14/25: personally reviewed Time spent with patient Time spent in Critical Care: 33 Time spent in Critical care included: Coordination of care, Chart review, Documenting critically ill care, Time at immediate bedside and Discussing critically ill care with other medical staff
[2025-06-25] MEDS: Pantoprazole 40 MG TABCR PO (08:24)
[2025-06-25] MEDS: Cyanocobalamin 500 MCG TAB 1000 MCG PO ×2 (08:24→19:37)
[2025-06-25] MEDS: Insulin Aspart 300 UNITS/3 ML PEN SC ×4 (08:24→22:24)
[2025-06-25] MEDS: valACYclovir 500 MG TAB PO (08:24)
[2025-06-25] MEDS: Clopidogrel 75 MG TAB PO (08:24)
[2025-06-25] MEDS: Allopurinol 100 MG TAB 50 MG PO (08:24)
[2025-06-25] MEDS: Citalopram 20 MG TAB 10 MG PO (08:24)
[2025-06-25] MEDS: Cholecalciferol (Vitamin D3) 1,000 UNIT TAB 2000 UNITS PO (08:24)
[2025-06-25] MEDS: Apixaban 2.5 MG TAB PO ×2 (08:24→19:37)
[2025-06-25] MEDS: Nystatin POWDER 60 GM JAR TP ×3 (08:25→19:38)
[2025-06-25] MEDS: Budesonide/Formoterol 160/4.5 6 GM 60 PUFF INH IH ×2 (08:45→19:26)
[2025-06-25] MEDS: Umeclidinium 7 CAP INHALER 1 CAP IH (08:45)
--- NOTE | 2025-06-25 11:12 | W.PM.PROGNOT ---
Date of Service Date of service: 06/25/25 Time of Service: 11:12 Assessment and Plan Assessment and plan (1) Digoxin toxicity: Status: Acute Assessment and plan: -Symtomatic since 06/19 -Levels were never severely elevated, peak was 4.75 with downtrend, but with low GFR this is not resolving quickly and patient continued to be intermittently bradycardic down to 29bpm -additionally BP was also lower over previous two days despite holding lisinopril -EKG without major changes, has shown some minor ST changes that could be digoxin toxicity, increasingly frequent bradycardic episodes down to 29 bpm on tele -digifab was ordered and was given on 06/24 -patient mental status improved, more awake and eating. HR also improved while awake, though still dips into 30's when sleeping (2) Abdominal tenderness: Status: Acute Assessment and plan: -likely related to bruising and increased ascites -initially covered for SBP, but ascitic fluid not consistent with SBP given polys only at 50 (3) Toxic metabolic encephalopathy: Status: Acute Assessment and plan: -New since admission. -Initially a/w tremor, which has improved. -could digoxin toxicity -improving as noted above (4) Atrial tachycardia: Status: Acute Assessment and plan: -Triggered by sepsis -Unclear rhythm initially, but was in atrial fibrillation per cardiology with RVR, moved to ICU for rate control -Was on diltiaz[place] drip, [facility], advised digoxin load 06/16 -Rate was much better controlled by 06/18. Echocardiogram with normal LVEF without fluid overload -On 06/19 concern that tremor and anorexia and depressed MS as above a/w digoxin toxicity, has been held since then -see above re: dig toxicity (5) Non-ST elevated myocardial infarction (non-STEMI): Status: Resolved Assessment and plan: -Mild elevation to 130 before Troponins trended down c/w type 2 NSTEMI related to atrial fibrillation/rate. -Has not had chest pain, repeat 06/23 trended down further to 51 in normal range. (6) Type 2 diabetes mellitus: Status: Chronic Assessment and plan: -Last known A1C 5.5 in February, 6.9% 06/20 -No longer on insulin at home -Started semaglutide this year, not getting here. -Continue SSI. FS have been higher, if they continue >180, start low dose glargine (7) Acute on chronic kidney failure: Status: Acute Assessment and plan: -CKD stage 3a, baseline creatinine around 1.4 -Challenging fluid balance with poor urine output and concern for heart failure, complicated by cirrhosis. -Diuresis was been paused on admission in favor of fluid resuscitation to increase urine output -Worsening creatinine after resuming furosemide. FENa 06/19 0.1% c/w prerenal. Echo 06/18 not c/w high IVC pressure. Metolazone and furosemide held 06/19. -06/20 gave a gentle liter of LR, some improvement in U/o over 24h but not great. -held lisinopril 06/21 -additional bolus 06/22 then continued maintenance as long as he isn't eating/drinking well. U/o improved 06/22 but minimal so far 06/23 -continue verma until urine output stable in normal range and MS improved, follow u/o -UOP ~500cc on 06/24, plan to DC IV fluids, encourage PO intake and monitor kidney function and urine output (8) Primary malignant colorectal neoplasm: Status: Acute Assessment and plan: -Started folfox in March, oncologist is Dr Luo at [facility] -Next (and last) chemotherapy was scheduled for Jun 21, will have to defer. -previous physician discussed with cancer center. DR. Luo's nurse with reach out with new f/u next week. (9) Cirrhosis: Assessment and plan: -With portal HTN, mild ascites noted on 06/22 u/s. 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 This complicates his renal failure and overall prognosis. -Worse ascites on CT 06/24, now s/p paracentesis (10) Decubitus ulcer of coccyx, stage 2: Status: Acute Assessment and plan: -Continue wound care and offloading. Stop lactulose, which makes this more difficult to keep clean. (11) Intertriginous candidiasis: Status: Acute Assessment and plan: -nystatin powder. Subjective Subjective Interval history since last seen: Patient much more awake and alert today, able to state that he is feeling better. Has no complaints concerns at this time. Exam Narrative Exam Narrative: chronically ill appearing older gentleman laying in bed in no acute distress, AOx4, heart irregularly irregular, rate between 30-70's, lungs CTAB, abdomen soft, non-tender, mildly distended, bilateral LE edema Objective Last Vital Signs Temp 96.8 F L 06/25/25 03:30 Pulse 55 L 06/25/25 10:01 Resp 16 06/25/25 10:01 BP 130/52 L 06/25/25 10:01 Pulse Ox 96 06/25/25 10:01 Laboratory Results - last 24 hr 06/23/25 06/25/25 06/25/25 13:30 05:48 10:00 WBC 11.77 H RBC 3.40 L Hgb 9.6 L Hct 29.5 L MCV 87 MCH 28.2 MCHC 32.5 RDW 21.9 H Plt Count 142 MPV 10.9 PT 10.9 INR 1.1 Sodium 135 L Potassium 4.3 Chloride 103 Carbon Dioxide 23.3 Anion Gap 8.7 BUN 71 H Creatinine 2.5 H Est GFR (CKD-EPI 2020) 24.72 Glucose 182 H Calcium 8.2 L Total Bilirubin 0.6 AST 29 ALT 19 Alkaline Phosphatase 154 H Total Protein 5.2 L Albumin 1.4 L Fluid Glucose 151 Fluid Albumin <1.0 Digoxin 4.21 H* Cancelled Time Spent with Patient Time Spent with Patient: >50 minutes Time was spent: preparing to see the patient(eg.review tests), obtaining and/or reviewing separately otained hiistory, ordering medications,tests, procedures, referring, communicating with other health home care attendant, indepentently interpreting results, counseling the patient and care coordination
[2025-06-25] MEDS: Ferrous Sulfate 325 MG TAB PO (12:00)
[2025-06-25] MEDS: Acetaminophen 325 MG TAB 650 MG PO (16:29)
--- NOTE | 2025-06-25 17:13 | TELEFU_ITS ---
Date of service: 06/25/25 Time of Service: 13:30 Nutrition Note NOTE: visited with Andres as his intake continues to be poor and his glucose not at target - Visitors today (Mami and waqas) as well as nurses confirm poor intake - documentation over the last 3 days supports and intake averaging <1,000kcals per day. Speech saw on 06/21 and changed diet consistency to minced and moist with thin liquids, 2 natural purees per meal following evaluation. Andres asleep majority of my visit - did wake up to answer a few questions and then back to sleep again. Family reviewed some typical food preferences with me and best bets for puree options to offer. He has not taken to the glucose control boost that was initially offered and prefers CIB frappes. Weight hx of being more like 125kg back in 2021. Family states more recent UBW after cancer dx more like 82kg. Has been on wt gain trend this admission but obviously has fluid contributing from edema/ascites and bed scales hard to keep accurate with equipment and various pillows/blankets being added/subtracted. Current estimated energy needs: 2380kcals (35kcals/kg IBW, considering wound status and increased risk of sarcopenia with current liver disease),102g protein (1.5g/kg IBW), at least 900mL fluid (based on output of ~500cc in urine yesterday, and will fluctuate) Patient not able to participate in NFPE today d/t sleeping with device on. Nutrition Dx: Moderate malnutrition related to poor intake and elevated energy/nutrition needs in the context of chronic illnesses (numerous co- conditions in PMH including cancer, ckd, liver disease, copd) evidenced by decreased oral intake over the last 6 weeks or more with estimation of <1725kcals (75% of estimated needs) taken during the same time frame, based on interview today as well as recorded intake this admission over the last 11 days. Patient has also experienced significant decrease functional status with patient unable to ambulate noted recently by PT on 06/22 and with observation today of mild to moderate wasting to temporalis region and orbital and buccal fat pads. Intervention: Will continue to work with him on supplementing his poor intake and relay preferences to kitchen staff to help improve acceptance. Suggestions to provider: -recommend a conservative 8 units insulin glargine for persistent elevated fasting glucose -consider order for liquid protein concentrate so nursing can try to administer -For wound consideration would recommend 220mg zinc sulfate, 500mg vitamin C BID, and higher dose of vitamin D (suggest 5,000-10,000IU per day) -? whether a discussion on enteral feeding should be had with family d/t full code status and no COLST I can see currently on file. Time Spent in Nutritional Counseling and Treatment: 10 min
[2025-06-25] MEDS: Normal Saline Flush 10 ML SYR IVP (19:36)
[2025-06-25] MEDS: Atorvastatin 40 MG TAB PO (19:37)
[2025-06-26] VITALS (25 sets, daily range): BP systolic 115–145; BP diastolic 43–93; PULSE 48–102; RESP 11–23; TEMP 35.1–36.2; O2SAT 92–97
[2025-06-26 06:31] LABS: HCT 30.4 % (40.0-50.0); HGB 9.8 g/dL (13.5-17.5); MCH 28.3 pg (27.0-33.0); MCHC 32.2 % (32.0-36.0); MCV 88 fL (80-95); MPV 10.1 fL (8.0-11.0); Platelet Count 121 10^3/uL (130-400); RBC 3.46 10^6/uL (4.36-5.78); RDW-SD 67.8 fL; WBC 11.73 10^3/uL (4.4-10.8)
[2025-06-26 06:37] LABS: INR 1.1 (0.9-1.1); Prothrombin Time 10.9 sec (9.1-11.1)
[2025-06-26 06:47] LABS: ALT 17 U/L (16-63); AST 28 U/L (15-37); Albumin 1.5 g/dL (3.4-5.0); Alkaline Phosphatase 161 U/L (46-116); Anion Gap 8.5 mmol/L (3-11); BUN 72 mg/dL (7-18); Bilirubin, Total 0.6 mg/dL (0.2-1.0); CO2 21.5 mmol/L (21.0-32.0); Calcium 8.5 mg/dL (8.5-10.1); Chloride 106 mmol/L (98-107); Estimated GFR 25.96 (mL/min/1.73m2); Glucose 133 mg/dL (74-106); Potassium 4.4 mmol/L (3.5-5.1); Sodium 136 mmol/L (136-145); Total Protein 5.3 g/dL (6.4-8.2)
[2025-06-26 06:55] LABS: RDW 21.9 % (11.8-14.1)
[2025-06-26 06:59] LABS: Digoxin 3.15 ng/mL (0.90-2.00)
--- NOTE | 2025-06-26 08:07 | PGE_ITS ---
Assessment and Plan Assessment and plan (1) COPD (chronic obstructive pulmonary disease): Status: Chronic (2) Obstructive sleep apnea syndrome: Status: Chronic (3) Pneumonia: Status: Acute (4) Atrial fibrillation: Status: Chronic (5) Ascites: Status: Acute (6) Acute on chronic kidney failure: Status: Acute (7) Primary malignant colorectal neoplasm: Status: Acute (8) ORVILLE positive: Status: Acute General Date Of Service Date of service: 06/26/25 Time of Service: 07:45 Requesting physician: Robert Vogel Reason for Consult: Respiratory failure, encephalopathy Recommendations: Assessment: 1. Pulmonary infiltrates - was likely due to pneumonia - treated with courses of levaquin and rocephin 2. Pleural effusion - trace bilateral effusions on CT imaging - no significant change from 06/14 to 06/23 - suspect 3rd spacing 3. Atrial Fibrillation - rate controlled. No further bradycardic episodes 4. Digoxin toxicity - s/p digibind on 06/24 - resolved 5. Acute on chronic renal failure - Cr stable at 2.4. ~1.4 at baseline 6. Colorectal cancer - on chemotherapy ([facility]) 7. Ascites - could be related to ascites or colon cancer - initial ascites fluid analysis not consistent with SBP 8. 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 Cirrhosis 11. COPD - FEV1 64% in 2016. Not in exacerbation 12. Oral thrush Recommendations: - at this time would hold on lasix or additional IV fluid administration. Can allow for PO hydration / nutrition. - recommend repeat CT chest imaging in 2-3 months to ensure resolution of the pulmonary infiltrates - PT/OT - fluconazole x 3 days to treat oral thrush - clinical status has significantly improved over the past 48 hours. I will sign off - will see in clinic in ~2 weeks for inpatient follow up Discussed with Dr. Vogel Subjective Note Note: Patient is an 84 yo with a history of colon cancer, afib, COPD, cirrhosis, CKD, and SAMMI who was admitted on 06/14 for dyspnea, weakness, afib w RVR and pneumonia. CTa chest on admission showed RLL pneumonia and trace bilateral pleural effusions. A 1.4 cm ALIS ground glass opacity was also noted. He was treated with a course of levaquin and rocephin. Due to low BP and tachycardia, he was given digoxin during this admission. Later developed encephalopathy and bradycardia. Due to concern for digoxin toxicity, he was given digiFab on 06/24. Ascites fluid was sampled on 06/23. Fluid was not consistent with SBP. Mental status, urine output, and HR have all improved over the past day. Has a sore throat and a raspy voice. Denied chest pain or dyspnea at rest. On CPAP with sleep. ROS: 6 pt ROS negative except as above Exam Narrative Exam Narrative: xam Narrative: General: alert, no acute distress Head: normocephalic ENT: no stridor, trachea midline CV: normal rate, irregular rhythm Respiratory: no wheezing, no crackles, no rhonchi, no prolonged expiration GI: abd soft, non-tender, mild distension Skin: no rashes Extremities: +1 edema, no digital clubbing Neuro: moves all extremities, alert, conversant Psych: normal affect Objective Last Vital Signs Temp 35.8 C L 06/26/25 05:03 Pulse 64 06/26/25 07:01 Resp 22 06/26/25 07:01 BP 142/48 H 06/26/25 07:01 Pulse Ox 96 06/26/25 07:01 Laboratory Results - last 24 hr 06/25/25 06/26/25 10:00 06:00 WBC 11.73 H RBC 3.46 L Hgb 9.8 L Hct 30.4 L MCV 88 MCH 28.3 MCHC 32.2 RDW 21.9 H Plt Count 121 L MPV 10.1 PT 10.9 INR 1.1 Sodium 136 Potassium 4.4 Chloride 106 Carbon Dioxide 21.5 Anion Gap 8.5 BUN 72 H Creatinine 2.4 H Est GFR (CKD-EPI 2020) 25.96 Glucose 133 H Calcium 8.5 Total Bilirubin 0.6 AST 28 ALT 17 Alkaline Phosphatase 161 H Total Protein 5.3 L Albumin 1.5 L Digoxin Cancelled 3.15 H* Results Medications Medications: Active Medications Generic Name Dose Route Start Last Admin Trade Name Freq PRN Reason Stop Dose Admin Acetaminophen 650 mg 06/14/25 06:41 06/25/25 16:29 Acetaminophen 325 Mg Tab PO 650 mg Q6H PRN PRN Administration Al Hydrox/Mg Hydrox/Simethicone 30 ml 06/14/25 06:41 Mylanta Suspension 30 Ml Cup PO Q2H PRN PRN Albuterol Sulfate 2.5 mg 06/14/25 06:41 Albuterol 2.5 Mg/3 Ml Inh Soln Vial IH Q2H PRN PRN Allopurinol 50 mg 06/22/25 08:30 06/25/25 08:24 Allopurinol 100 Mg Tab PO 50 mg DAILY HENRY Administration Apixaban 2.5 mg 06/21/25 20:00 06/25/25 19:37 Apixaban 2.5 Mg Tab PO 2.5 mg BID HENRY Administration Ascorbic Acid 500 mg 06/26/25 08:30 Ascorbic Acid 500 Mg Tab PO BID [facility] Atorvastatin Calcium 40 mg 06/14/25 20:00 06/25/25 19:37 Atorvastatin 40 Mg Tab PO 40 mg QPM HENRY Administration Budesonide/Formoterol Fumarate 2 puff 06/14/25 08:30 06/25/25 19:26 Budesonide/Formoterol 160/4.5 6 Gm 60 Puff Inh IH 2 puffs BID [facility] Administration Cholecalciferol 5,000 units 06/26/25 08:30 Cholecalciferol (Vitamin D3) 1,000 Unit Tab PO DAILY [facility] Citalopram Hydrobromide 10 mg 06/15/25 08:30 06/25/25 08:24 Citalopram 20 Mg Tab PO 10 mg DAILY [facility] Administration Clopidogrel Bisulfate 75 mg 06/23/25 08:30 06/25/25 08:24 Clopidogrel 75 Mg Tab PO 75 mg DAILY [facility] Administration Clotrimazole 0 gm 06/24/25 08:30 06/24/25 16:30 Clotrimazole 1% 15 Gm Tube TP 1 applic BID PRN PRN Administration Cyanocobalamin 1,000 mcg 06/14/25 08:30 06/25/25 19:37 Cyanocobalamin 500 Mcg Tab PO 1,000 mcg BID [facility] Administration Dextrose 0 gm 06/14/25 08:27 Glucose Oral Gel 15 Gm/37.5 Gm Tube PO DIRECTED PRN Dextrose/Water 0 gm 06/14/25 08:27 Dextrose 50%-Water 25 Gm/50 Ml Syr IVP DIRECTED PRN Ferrous Sulfate 325 mg 06/15/25 12:00 06/25/25 12:00 Ferrous Sulfate 325 Mg Tab PO 325 mg DAILY@1200 HENRY Administration Fluconazole 150 mg 06/26/25 08:30 Fluconazole 150 Mg Tab PO DAILY [facility] Sodium Chloride 500 mls @ 0 mls/hr 10/11/25 08:47 06/25/25 07:00 Saline 500ml Bag IV Infused PRN PRN Infusion As Directed IV Miscellaneous Supplies 1 each 06/22/25 10:15 Iv Access IV DIRECTED [facility] Insulin Aspart 0 units 06/14/25 12:00 06/25/25 22:24 Insulin Aspart 300 Units/3 Ml Pen SC 2 units 0800,1200,1700,2200 HENRY Administration Protocol Nystatin 0 gm 06/23/25 14:00 06/25/25 19:38 Nystatin Powder 60 Gm Jar TP 1 applic TID HENRY Administration Pantoprazole Sodium 40 mg 06/24/25 08:00 06/25/25 08:24 Pantoprazole 40 Mg Tabcr PO 40 mg DAILY@0730 [facility] Administration Polyethylene Glycol 17 gm 06/14/25 06:41 Polyethylene Glycol 3350 17 Gm Packet PO DAILY PRN PRN Constipation Sodium Chloride 0 ml 06/16/25 10:24 06/25/25 19:36 Normal Saline Flush 10 Ml Syr IVP 40 ml PRN PRN Administration Umeclidinium Jordan 1 cap 06/14/25 08:30 06/25/25 08:45 Umeclidinium 7 Cap Inhaler IH 1 inh DAILY [facility] Administration Valacyclovir HCl 500 mg 06/22/25 08:30 06/25/25 08:24 Valacyclovir 500 Mg Tab PO 500 mg DAILY [facility] Administration Zinc Sulfate 220 mg 06/26/25 08:30 Zinc Sulfate 220 Mg Tab PO DAILY [facility] Allergies cephalexin Adverse Reaction (Intermediate, Verified 06/14/25 01:35) genitourinary edema Labs 06/26/25 06:00 06/26/25 06:00 Labs: 06/23/25 12:35 Blood Blood Culture - Preliminary NO GROWTH 48 HOURS 06/23/25 11:00 Blood Blood Culture - Preliminary NO GROWTH 48 HOURS 06/23/25 13:30 Peritoneal Body Fluid Culture - Preliminary 06/23/25 13:30 Peritoneal Gram Stain - Final 06/23/25 21:02 Stool Stool Occult Blood (ERWIN) - Final 06/14/25 02:25 Blood Blood Culture - Final NO GROWTH 120 HOURS 06/14/25 02:23 Blood Blood Culture - Final NO GROWTH 120 HOURS 06/14/25 03:35 Urine - Voided Urine Culture - Final Laboratory Tests Range/Units 06/14/25 06/14/25 06/14/25 01:15 01:29 01:48 WBC (4.4-10.8) 10^3/uL 13.01 H RBC (4.36-5.78) 10^6/uL 3.75 L Hgb (13.5-17.5) g/dL 10.4 L Hct (40.0-50.0) % 32.8 L MCV (80-95) fL 88 MCH (27.0-33.0) pg 27.7 MCHC (32.0-36.0) % 31.7 L RDW (11.8-14.1) % 20.6 H Plt Count (130-400) 10^3/uL 108 L MPV (8.0-11.0) fL 10.4 Immature Gran % % 1.1 Neutrophils % % 95.1 Band Neutrophils % % Lymphocytes % % 1.0 Monocytes % % 2.3 Eosinophils % % 0.0 Basophils % % 0.5 Metamyelocytes % Myelocytes % Nucleated RBC % (0.0-0.3) % 0.0 Absolute Neutrophils (1.2-6.7) 10^3/uL 12.37 H Absolute Lymphocytes (1.2-3.4) 10^3/uL 0.13 L Absolute Monocytes (0.1-0.8) 10^3/uL 0.30 Absolute Eosinophils (0.0-0.7) 10^3/uL 0.00 Absolute Basophils (0.0-0.2) 10^3/uL 0.07 RBC Morphology See Below Polychromasia Poikilocytosis 1+ Anisocytosis 1+ PT (9.1-11.1) sec 9.9 INR (0.9-1.1) 1.0 APTT (20.6-30.2) sec 33.2 H D-Dimer Cancelled VBG Lactate (<or=2.0) mmol/L Sodium (136-145) mmol/L 139 Potassium (3.5-5.1) mmol/L 3.8 Chloride (98-107) mmol/L 102 Carbon Dioxide (21.0-32.0) mmol/L 23.3 Anion Gap (3-11) mmol/L 13.7 H BUN (7-18) mg/dL 21 H Creatinine (0.70-1.30) mg/dL 1.7 H Est GFR (CKD-EPI 2020) (mL/min/1.73m2) 39.26 Glucose (74-106) mg/dL 151 H Hemoglobin A1c (<5.7) % Calcium (8.5-10.1) mg/dL 9.1 Magnesium (1.8-2.4) mg/dL 1.4 L Total Bilirubin (0.2-1.0) mg/dL 1.3 H Conjugated Bilirubin (0.0-0.2) mg/dL AST (15-37) U/L 34 ALT (16-63) U/L 16 Alkaline Phosphatase (46-116) U/L 189 H Ammonia (11-32) umol/L Troponin I (<or=76) ng/L 86 H* NT-Pro-B Natriuret Pep (<300) pg/mL 2675 H Total Protein (6.4-8.2) g/dL 6.5 Albumin (3.4-5.0) g/dL 1.9 L Lipase (<78) U/L 48 TSH (0.36-3.74) uIU/mL 1.12 Urine Color (Yellow) Urine Clarity (Clear) Urine pH (5-8) Ur Specific [place] (1.005-1.025) Urine Protein (Neg-Trace) mg/dL Urine Ketones (Negative) mg/dL Urine Blood (Negative) Urine Nitrite (Negative) Urine Bilirubin (Negative) Urine Urobilinogen (Up to 0.2) mg/dL Ur Leukocyte Esterase (Negative) Urine RBC (0-2) HPF Urine WBC (0-5) HPF Ur Epithelial Cells (Negative) HPF Urine Crystals (Negative) HPF Urine Bacteria (Negative) HPF Urine Casts (Negative) LPF Urine Mucus (Negative) Ur Culture Indicated? Ur Random Creatinine mg/dL Ur Random Sodium mmol/L Urine Glucose (Negative) mg/dL Fluid Source Fluid Color Fluid Clarity Fluid WBC (0) uL Fld Polynuclear WBCs % % Fluid Mononuclear Cell % Fluid Glucose (See Note) mg/dL Fluid Albumin (See Note) g/dL Digoxin (0.90-2.00) ng/mL COVID-19 Source Nasopharynx SARS-CoV-2 (PCR) (Negative) Negative Influenza Type A (PCR) (Negative) Negative Influenza Type B (PCR) (Negative) Negative RSV (PCR) (Negative) Negative MRSA (TEM-PCR) (Negative) Range/Units 06/14/25 06/14/25 06/14/25 02:25 02:57 03:35 WBC (4.4-10.8) 10^3/uL RBC (4.36-5.78) 10^6/uL Hgb (13.5-17.5) g/dL Hct (40.0-50.0) % MCV (80-95) fL MCH (27.0-33.0) pg MCHC (32.0-36.0) % RDW (11.8-14.1) % Plt Count (130-400) 10^3/uL MPV (8.0-11.0) fL Immature Gran % % Neutrophils % % Band Neutrophils % % Lymphocytes % % Monocytes % % Eosinophils % % Basophils % % Metamyelocytes % Myelocytes % Nucleated RBC % (0.0-0.3) % Absolute Neutrophils (1.2-6.7) 10^3/uL Absolute Lymphocytes (1.2-3.4) 10^3/uL Absolute Monocytes (0.1-0.8) 10^3/uL Absolute Eosinophils (0.0-0.7) 10^3/uL Absolute Basophils (0.0-0.2) 10^3/uL RBC Morphology Polychromasia Poikilocytosis Anisocytosis PT (9.1-11.1) sec INR (0.9-1.1) APTT (20.6-30.2) sec D-Dimer VBG Lactate (<or=2.0) mmol/L 3.8 H* Sodium (136-145) mmol/L Potassium (3.5-5.1) mmol/L Chloride (98-107) mmol/L Carbon Dioxide (21.0-32.0) mmol/L Anion Gap (3-11) mmol/L BUN (7-18) mg/dL Creatinine (0.70-1.30) mg/dL Est GFR (CKD-EPI 2020) (mL/min/1.73m2) Glucose (74-106) mg/dL Hemoglobin A1c (<5.7) % Calcium (8.5-10.1) mg/dL Magnesium (1.8-2.4) mg/dL Total Bilirubin (0.2-1.0) mg/dL Conjugated Bilirubin (0.0-0.2) mg/dL AST (15-37) U/L ALT (16-63) U/L Alkaline Phosphatase (46-116) U/L Ammonia (11-32) umol/L Troponin I (<or=76) ng/L 104 H* NT-Pro-B Natriuret Pep (<300) pg/mL Total Protein (6.4-8.2) g/dL Albumin (3.4-5.0) g/dL Lipase (<78) U/L TSH (0.36-3.74) uIU/mL Urine Color (Yellow) Yellow Urine Clarity (Clear) Sl Cloudy Urine pH (5-8) 5.0 Ur Specific [place] (1.005-1.025) 1.020 Urine Protein (Neg-Trace) mg/dL 30 H Urine Ketones (Negative) mg/dL Negative Urine Blood (Negative) Negative Urine Nitrite (Negative) Negative Urine Bilirubin (Negative) Negative Urine Urobilinogen (Up to 0.2) mg/dL 0.2 Ur Leukocyte Esterase (Negative) Negative Urine RBC (0-2) HPF Negative Urine WBC (0-5) HPF Negative Ur Epithelial Cells (Negative) HPF Negative Urine Crystals (Negative) HPF Moderate Amorphous Urine Bacteria (Negative) HPF Few Urine Casts (Negative) LPF 0-2 Fine Granular Urine Mucus (Negative) Trace Ur Culture Indicated? C&S Done As Ordered Ur Random Creatinine mg/dL Ur Random Sodium mmol/L Urine Glucose (Negative) mg/dL Negative Fluid Source Fluid Color Fluid Clarity Fluid WBC (0) uL Fld Polynuclear WBCs % % Fluid Mononuclear Cell % Fluid Glucose (See Note) mg/dL Fluid Albumin (See Note) g/dL Digoxin (0.90-2.00) ng/mL COVID-19 Source SARS-CoV-2 (PCR) (Negative) Influenza Type A (PCR) (Negative) Influenza Type B (PCR) (Negative) RSV (PCR) (Negative) MRSA (TEM-PCR) (Negative) Range/Units 06/14/25 06/14/25 06/15/25 03:38 13:25 05:35 WBC (4.4-10.8) 10^3/uL RBC (4.36-5.78) 10^6/uL Hgb (13.5-17.5) g/dL Hct (40.0-50.0) % MCV (80-95) fL MCH (27.0-33.0) pg MCHC (32.0-36.0) % RDW (11.8-14.1) % Plt Count (130-400) 10^3/uL MPV (8.0-11.0) fL Immature Gran % % Neutrophils % % Band Neutrophils % % Lymphocytes % % Monocytes % % Eosinophils % % Basophils % % Metamyelocytes % Myelocytes % Nucleated RBC % (0.0-0.3) % Absolute Neutrophils (1.2-6.7) 10^3/uL Absolute Lymphocytes (1.2-3.4) 10^3/uL Absolute Monocytes (0.1-0.8) 10^3/uL Absolute Eosinophils (0.0-0.7) 10^3/uL Absolute Basophils (0.0-0.2) 10^3/uL RBC Morphology Polychromasia Poikilocytosis Anisocytosis PT (9.1-11.1) sec INR (0.9-1.1) APTT (20.6-30.2) sec D-Dimer VBG Lactate (<or=2.0) mmol/L 3.2 H* Sodium (136-145) mmol/L Potassium (3.5-5.1) mmol/L Chloride (98-107) mmol/L Carbon Dioxide (21.0-32.0) mmol/L Anion Gap (3-11) mmol/L BUN (7-18) mg/dL Creatinine (0.70-1.30) mg/dL Est GFR (CKD-EPI 2020) (mL/min/1.73m2) Glucose (74-106) mg/dL Hemoglobin A1c (<5.7) % Calcium (8.5-10.1) mg/dL Magnesium (1.8-2.4) mg/dL 2.0 Total Bilirubin (0.2-1.0) mg/dL Conjugated Bilirubin (0.0-0.2) mg/dL AST (15-37) U/L ALT (16-63) U/L Alkaline Phosphatase (46-116) U/L Ammonia (11-32) umol/L Troponin I (<or=76) ng/L 130 H* 121 H* NT-Pro-B Natriuret Pep (<300) pg/mL Total Protein (6.4-8.2) g/dL Albumin (3.4-5.0) g/dL Lipase (<78) U/L TSH (0.36-3.74) uIU/mL Urine Color (Yellow) Urine Clarity (Clear) Urine pH (5-8) Ur Specific [place] (1.005-1.025) Urine Protein (Neg-Trace) mg/dL Urine Ketones (Negative) mg/dL Urine Blood (Negative) Urine Nitrite (Negative) Urine Bilirubin (Negative) Urine Urobilinogen (Up to 0.2) mg/dL Ur Leukocyte Esterase (Negative) Urine RBC (0-2) HPF Urine WBC (0-5) HPF Ur Epithelial Cells (Negative) HPF Urine Crystals (Negative) HPF Urine Bacteria (Negative) HPF Urine Casts (Negative) LPF Urine Mucus (Negative) Ur Culture Indicated? Ur Random Creatinine mg/dL Ur Random Sodium mmol/L Urine Glucose (Negative) mg/dL Fluid Source Fluid Color Fluid Clarity Fluid WBC (0) uL Fld Polynuclear WBCs % % Fluid Mononuclear Cell % Fluid Glucose (See Note) mg/dL Fluid Albumin (See Note) g/dL Digoxin (0.90-2.00) ng/mL COVID-19 Source SARS-CoV-2 (PCR) (Negative) Influenza Type A (PCR) (Negative) Influenza Type B (PCR) (Negative) RSV (PCR) (Negative) MRSA (TEM-PCR) (Negative) Range/Units 06/16/25 06/17/25 06/18/25 05:58 05:25 05:40 WBC (4.4-10.8) 10^3/uL 11.68 H 8.25 7.58 RBC (4.36-5.78) 10^6/uL 3.85 L 3.64 L 3.60 L Hgb (13.5-17.5) g/dL 10.7 L 10.0 L 10.2 L Hct (40.0-50.0) % 33.0 L 31.7 L 31.6 L MCV (80-95) fL 86 87 88 MCH (27.0-33.0) pg 27.8 27.5 28.3 MCHC (32.0-36.0) % 32.4 31.5 L 32.3 RDW (11.8-14.1) % 20.0 H 20.1 H 19.4 H Plt Count (130-400) 10^3/uL 136 133 130 MPV (8.0-11.0) fL 10.9 10.7 10.7 Immature Gran % % 1.9 2.2 Neutrophils % % 85.7 80.8 Band Neutrophils % % Lymphocytes % % 4.0 4.5 Monocytes % % 7.6 11.7 Eosinophils % % 0.6 0.5 Basophils % % 0.2 0.3 Metamyelocytes % Myelocytes % Nucleated RBC % (0.0-0.3) % 1.5 H 1.7 H Absolute Neutrophils (1.2-6.7) 10^3/uL 7.06 H 6.12 Absolute Lymphocytes (1.2-3.4) 10^3/uL 0.33 L 0.34 L Absolute Monocytes (0.1-0.8) 10^3/uL 0.63 0.89 H Absolute Eosinophils (0.0-0.7) 10^3/uL 0.05 0.04 Absolute Basophils (0.0-0.2) 10^3/uL 0.02 0.02 RBC Morphology See Below Polychromasia Poikilocytosis 2+ Anisocytosis 2+ PT (9.1-11.1) sec INR (0.9-1.1) APTT (20.6-30.2) sec D-Dimer VBG Lactate (<or=2.0) mmol/L 1.6 Sodium (136-145) mmol/L 137 135 L 134 L Potassium (3.5-5.1) mmol/L 3.2 L 3.2 L 3.5 Chloride (98-107) mmol/L 103 101 99 Carbon Dioxide (21.0-32.0) mmol/L 25.1 25.1 23.6 Anion Gap (3-11) mmol/L 8.9 8.9 11.4 H BUN (7-18) mg/dL 27 H 39 H 50 H Creatinine (0.70-1.30) mg/dL 1.7 H 2.1 H 2.5 H Est GFR (CKD-EPI 2020) (mL/min/1.73m2) 39.26 30.47 24.72 Glucose (74-106) mg/dL 156 H 146 H 111 H Hemoglobin A1c (<5.7) % Calcium (8.5-10.1) mg/dL 8.5 8.5 8.7 Magnesium (1.8-2.4) mg/dL 1.9 2.0 Total Bilirubin (0.2-1.0) mg/dL 0.6 0.5 0.6 Conjugated Bilirubin (0.0-0.2) mg/dL AST (15-37) U/L 29 33 35 ALT (16-63) U/L 12 L 17 17 Alkaline Phosphatase (46-116) U/L 177 H 174 H 164 H Ammonia (11-32) umol/L Troponin I (<or=76) ng/L NT-Pro-B Natriuret Pep (<300) pg/mL Total Protein (6.4-8.2) g/dL 5.2 L 5.1 L 5.1 L Albumin (3.4-5.0) g/dL 1.3 L 1.3 L 1.5 L Lipase (<78) U/L TSH (0.36-3.74) uIU/mL Urine Color (Yellow) Urine Clarity (Clear) Urine pH (5-8) Ur Specific [place] (1.005-1.025) Urine Protein (Neg-Trace) mg/dL Urine Ketones (Negative) mg/dL Urine Blood (Negative) Urine Nitrite (Negative) Urine Bilirubin (Negative) Urine Urobilinogen (Up to 0.2) mg/dL Ur Leukocyte Esterase (Negative) Urine RBC (0-2) HPF Urine WBC (0-5) HPF Ur Epithelial Cells (Negative) HPF Urine Crystals (Negative) HPF Urine Bacteria (Negative) HPF Urine Casts (Negative) LPF Urine Mucus (Negative) Ur Culture Indicated? Ur Random Creatinine mg/dL Ur Random Sodium mmol/L Urine Glucose (Negative) mg/dL Fluid Source Fluid Color Fluid Clarity Fluid WBC (0) uL Fld Polynuclear WBCs % % Fluid Mononuclear Cell % Fluid Glucose (See Note) mg/dL Fluid Albumin (See Note) g/dL Digoxin (0.90-2.00) ng/mL 2.39 H* COVID-19 Source SARS-CoV-2 (PCR) (Negative) Influenza Type A (PCR) (Negative) Influenza Type B (PCR) (Negative) RSV (PCR) (Negative) MRSA (TEM-PCR) (Negative) Range/Units 06/19/25 06/19/25 06/20/25 05:50 12:30 06:45 WBC (4.4-10.8) 10^3/uL 7.15 RBC (4.36-5.78) 10^6/uL 3.74 L Hgb (13.5-17.5) g/dL 10.5 L Hct (40.0-50.0) % 32.6 L MCV (80-95) fL 87 MCH (27.0-33.0) pg 28.1 MCHC (32.0-36.0) % 32.2 RDW (11.8-14.1) % 19.6 H Plt Count (130-400) 10^3/uL 128 L MPV (8.0-11.0) fL 10.3 Immature Gran % % 3.9 Neutrophils % % 79.8 Band Neutrophils % % Lymphocytes % % 3.9 Monocytes % % 11.9 Eosinophils % % 0.4 Basophils % % 0.1 Metamyelocytes % Myelocytes % Nucleated RBC % (0.0-0.3) % 1.8 H Absolute Neutrophils (1.2-6.7) 10^3/uL 5.70 Absolute Lymphocytes (1.2-3.4) 10^3/uL 0.28 L Absolute Monocytes (0.1-0.8) 10^3/uL 0.85 H Absolute Eosinophils (0.0-0.7) 10^3/uL 0.03 Absolute Basophils (0.0-0.2) 10^3/uL 0.01 RBC Morphology Polychromasia Poikilocytosis Anisocytosis PT (9.1-11.1) sec INR (0.9-1.1) APTT (20.6-30.2) sec D-Dimer VBG Lactate (<or=2.0) mmol/L Sodium (136-145) mmol/L 134 L Potassium (3.5-5.1) mmol/L 3.8 Chloride (98-107) mmol/L 99 Carbon Dioxide (21.0-32.0) mmol/L 24.9 Anion Gap (3-11) mmol/L 10.1 BUN (7-18) mg/dL 57 H Creatinine (0.70-1.30) mg/dL 2.7 H Est GFR (CKD-EPI 2020) (mL/min/1.73m2) 22.53 Glucose (74-106) mg/dL 129 H Hemoglobin A1c (<5.7) % Calcium (8.5-10.1) mg/dL 8.6 Magnesium (1.8-2.4) mg/dL Total Bilirubin (0.2-1.0) mg/dL 0.6 Conjugated Bilirubin (0.0-0.2) mg/dL AST (15-37) U/L 31 ALT (16-63) U/L 17 Alkaline Phosphatase (46-116) U/L 173 H Ammonia (11-32) umol/L < 10 L Troponin I (<or=76) ng/L NT-Pro-B Natriuret Pep (<300) pg/mL Total Protein (6.4-8.2) g/dL 5.1 L Albumin (3.4-5.0) g/dL 1.5 L Lipase (<78) U/L TSH (0.36-3.74) uIU/mL Urine Color (Yellow) Urine Clarity (Clear) Urine pH (5-8) Ur Specific [place] (1.005-1.025) Urine Protein (Neg-Trace) mg/dL Urine Ketones (Negative) mg/dL Urine Blood (Negative) Urine Nitrite (Negative) Urine Bilirubin (Negative) Urine Urobilinogen (Up to 0.2) mg/dL Ur Leukocyte Esterase (Negative) Urine RBC (0-2) HPF Urine WBC (0-5) HPF Ur Epithelial Cells (Negative) HPF Urine Crystals (Negative) HPF Urine Bacteria (Negative) HPF Urine Casts (Negative) LPF Urine Mucus (Negative) Ur Culture Indicated? Ur Random Creatinine mg/dL 144.50 Ur Random Sodium mmol/L 8 Urine Glucose (Negative) mg/dL Fluid Source Fluid Color Fluid Clarity Fluid WBC (0) uL Fld Polynuclear WBCs % % Fluid Mononuclear Cell % Fluid Glucose (See Note) mg/dL Fluid Albumin (See Note) g/dL Digoxin (0.90-2.00) ng/mL COVID-19 Source SARS-CoV-2 (PCR) (Negative) Influenza Type A (PCR) (Negative) Influenza Type B (PCR) (Negative) RSV (PCR) (Negative) MRSA (TEM-PCR) (Negative) Range/Units 06/20/25 06/21/25 06/22/25 06:47 05:32 06:15 WBC (4.4-10.8) 10^3/uL 8.29 RBC (4.36-5.78) 10^6/uL 3.61 L Hgb (13.5-17.5) g/dL 10.2 L Hct (40.0-50.0) % 30.9 L MCV (80-95) fL 86 MCH (27.0-33.0) pg 28.3 MCHC (32.0-36.0) % 33.0 RDW (11.8-14.1) % 20.1 H Plt Count (130-400) 10^3/uL 163 MPV (8.0-11.0) fL 10.5 Immature Gran % % 7.5 Neutrophils % % 79.0 Band Neutrophils % % 2 Lymphocytes % % 3.0 Monocytes % % 13.0 Eosinophils % % 0.7 Basophils % % 0.7 Metamyelocytes % 1 Myelocytes % 2 Nucleated RBC % (0.0-0.3) % 2.8 H Absolute Neutrophils (1.2-6.7) 10^3/uL 6.71 H Absolute Lymphocytes (1.2-3.4) 10^3/uL 0.25 L Absolute Monocytes (0.1-0.8) 10^3/uL 1.08 H Absolute Eosinophils (0.0-0.7) 10^3/uL 0.06 Absolute Basophils (0.0-0.2) 10^3/uL 0.06 RBC Morphology See Below Polychromasia Present Poikilocytosis 2+ Anisocytosis 2+ PT (9.1-11.1) sec INR (0.9-1.1) APTT (20.6-30.2) sec D-Dimer VBG Lactate (<or=2.0) mmol/L Sodium (136-145) mmol/L 133 L 133 L 134 L Potassium (3.5-5.1) mmol/L 3.9 3.9 3.8 Chloride (98-107) mmol/L 99 100 100 Carbon Dioxide (21.0-32.0) mmol/L 21.6 22.4 22.5 Anion Gap (3-11) mmol/L 12.4 H 10.6 11.5 H BUN (7-18) mg/dL 64 H 68 H 72 H Creatinine (0.70-1.30) mg/dL 2.9 H 2.8 H 2.9 H Est GFR (CKD-EPI 2020) (mL/min/1.73m2) 20.68 21.57 20.68 Glucose (74-106) mg/dL 127 H 116 H 114 H Hemoglobin A1c (<5.7) % 6.9 H Calcium (8.5-10.1) mg/dL 8.1 L 8.4 L 8.5 Magnesium (1.8-2.4) mg/dL 2.2 Total Bilirubin (0.2-1.0) mg/dL Conjugated Bilirubin (0.0-0.2) mg/dL AST (15-37) U/L ALT (16-63) U/L Alkaline Phosphatase (46-116) U/L Ammonia (11-32) umol/L Troponin I (<or=76) ng/L NT-Pro-B Natriuret Pep (<300) pg/mL Total Protein (6.4-8.2) g/dL Albumin (3.4-5.0) g/dL Lipase (<78) U/L TSH (0.36-3.74) uIU/mL Urine Color (Yellow) Urine Clarity (Clear) Urine pH (5-8) Ur Specific [place] (1.005-1.025) Urine Protein (Neg-Trace) mg/dL Urine Ketones (Negative) mg/dL Urine Blood (Negative) Urine Nitrite (Negative) Urine Bilirubin (Negative) Urine Urobilinogen (Up to 0.2) mg/dL Ur Leukocyte Esterase (Negative) Urine RBC (0-2) HPF Urine WBC (0-5) HPF Ur Epithelial Cells (Negative) HPF Urine Crystals (Negative) HPF Urine Bacteria (Negative) HPF Urine Casts (Negative) LPF Urine Mucus (Negative) Ur Culture Indicated? Ur Random Creatinine mg/dL Ur Random Sodium mmol/L Urine Glucose (Negative) mg/dL Fluid Source Fluid Color Fluid Clarity Fluid WBC (0) uL Fld Polynuclear WBCs % % Fluid Mononuclear Cell % Fluid Glucose (See Note) mg/dL Fluid Albumin (See Note) g/dL Digoxin (0.90-2.00) ng/mL 4.75 H* 4.22 H* 4.04 H* COVID-19 Source SARS-CoV-2 (PCR) (Negative) Influenza Type A (PCR) (Negative) Influenza Type B (PCR) (Negative) RSV (PCR) (Negative) MRSA (TEM-PCR) (Negative) Range/Units 06/23/25 06/23/25 06/23/25 06:47 11:00 13:05 WBC (4.4-10.8) 10^3/uL 12.01 H RBC (4.36-5.78) 10^6/uL 3.67 L Hgb (13.5-17.5) g/dL 10.2 L Hct (40.0-50.0) % 32.2 L MCV (80-95) fL 88 MCH (27.0-33.0) pg 27.8 MCHC (32.0-36.0) % 31.7 L RDW (11.8-14.1) % 21.2 H Plt Count (130-400) 10^3/uL 168 MPV (8.0-11.0) fL 10.4 Immature Gran % % 3.7 Neutrophils % % 80.1 Band Neutrophils % % Lymphocytes % % 1.7 Monocytes % % 13.7 Eosinophils % % 0.3 Basophils % % 0.5 Metamyelocytes % Myelocytes % Nucleated RBC % (0.0-0.3) % 1.6 H Absolute Neutrophils (1.2-6.7) 10^3/uL 9.62 H Absolute Lymphocytes (1.2-3.4) 10^3/uL 0.20 L Absolute Monocytes (0.1-0.8) 10^3/uL 1.65 H Absolute Eosinophils (0.0-0.7) 10^3/uL 0.04 Absolute Basophils (0.0-0.2) 10^3/uL 0.06 RBC Morphology See Below Polychromasia Poikilocytosis 2+ Anisocytosis 2+ PT (9.1-11.1) sec 10.9 INR (0.9-1.1) 1.1 APTT (20.6-30.2) sec D-Dimer VBG Lactate (<or=2.0) mmol/L Sodium (136-145) mmol/L 132 L Potassium (3.5-5.1) mmol/L 3.9 Chloride (98-107) mmol/L 98 Carbon Dioxide (21.0-32.0) mmol/L 20.8 L Anion Gap (3-11) mmol/L 13.2 H BUN (7-18) mg/dL 72 H Creatinine (0.70-1.30) mg/dL 2.9 H Est GFR (CKD-EPI 2020) (mL/min/1.73m2) 20.68 Glucose (74-106) mg/dL 190 H Hemoglobin A1c (<5.7) % Calcium (8.5-10.1) mg/dL 8.3 L Magnesium (1.8-2.4) mg/dL Total Bilirubin (0.2-1.0) mg/dL 0.7 Conjugated Bilirubin (0.0-0.2) mg/dL 0.3 H AST (15-37) U/L 42 H ALT (16-63) U/L 19 Alkaline Phosphatase (46-116) U/L 167 H Ammonia (11-32) umol/L 17 Troponin I (<or=76) ng/L 51 NT-Pro-B Natriuret Pep (<300) pg/mL Total Protein (6.4-8.2) g/dL 5.5 L Albumin (3.4-5.0) g/dL 1.6 L Lipase (<78) U/L TSH (0.36-3.74) uIU/mL Urine Color (Yellow) Urine Clarity (Clear) Urine pH (5-8) Ur Specific [place] (1.005-1.025) Urine Protein (Neg-Trace) mg/dL Urine Ketones (Negative) mg/dL Urine Blood (Negative) Urine Nitrite (Negative) Urine Bilirubin (Negative) Urine Urobilinogen (Up to 0.2) mg/dL Ur Leukocyte Esterase (Negative) Urine RBC (0-2) HPF Urine WBC (0-5) HPF Ur Epithelial Cells (Negative) HPF Urine Crystals (Negative) HPF Urine Bacteria (Negative) HPF Urine Casts (Negative) LPF Urine Mucus (Negative) Ur Culture Indicated? Ur Random Creatinine mg/dL Ur Random Sodium mmol/L Urine Glucose (Negative) mg/dL Fluid Source Fluid Color Fluid Clarity Fluid WBC (0) uL Fld Polynuclear WBCs % % Fluid Mononuclear Cell % Fluid Glucose (See Note) mg/dL Fluid Albumin (See Note) g/dL Digoxin (0.90-2.00) ng/mL 3.40 H* COVID-19 Source SARS-CoV-2 (PCR) (Negative) Influenza Type A (PCR) (Negative) Influenza Type B (PCR) (Negative) RSV (PCR) (Negative) MRSA (TEM-PCR) (Negative) Negative Range/Units 06/23/25 06/24/25 06/24/25 13:30 05:35 05:45 WBC (4.4-10.8) 10^3/uL 12.41 H RBC (4.36-5.78) 10^6/uL 3.59 L Hgb (13.5-17.5) g/dL 10.0 L Hct (40.0-50.0) % 31.3 L MCV (80-95) fL 87 MCH (27.0-33.0) pg 27.9 MCHC (32.0-36.0) % 31.9 L RDW (11.8-14.1) % 21.2 H Plt Count (130-400) 10^3/uL 152 MPV (8.0-11.0) fL 10.2 Immature Gran % % Neutrophils % % Band Neutrophils % % Lymphocytes % % Monocytes % % Eosinophils % % Basophils % % Metamyelocytes % Myelocytes % Nucleated RBC % (0.0-0.3) % Absolute Neutrophils (1.2-6.7) 10^3/uL Absolute Lymphocytes (1.2-3.4) 10^3/uL Absolute Monocytes (0.1-0.8) 10^3/uL Absolute Eosinophils (0.0-0.7) 10^3/uL Absolute Basophils (0.0-0.2) 10^3/uL RBC Morphology Polychromasia Poikilocytosis Anisocytosis PT (9.1-11.1) sec INR (0.9-1.1) Cancelled APTT (20.6-30.2) sec D-Dimer VBG Lactate (<or=2.0) mmol/L Sodium (136-145) mmol/L 135 L Potassium (3.5-5.1) mmol/L 4.0 Chloride (98-107) mmol/L 102 Carbon Dioxide (21.0-32.0) mmol/L 24.0 Anion Gap (3-11) mmol/L 9.0 BUN (7-18) mg/dL 68 H Creatinine (0.70-1.30) mg/dL 2.5 H Est GFR (CKD-EPI 2020) (mL/min/1.73m2) 24.72 Glucose (74-106) mg/dL 187 H Hemoglobin A1c (<5.7) % Calcium (8.5-10.1) mg/dL 8.1 L Magnesium (1.8-2.4) mg/dL Total Bilirubin (0.2-1.0) mg/dL 0.7 Conjugated Bilirubin (0.0-0.2) mg/dL AST (15-37) U/L 34 ALT (16-63) U/L 22 Alkaline Phosphatase (46-116) U/L 162 H Ammonia (11-32) umol/L Troponin I (<or=76) ng/L NT-Pro-B Natriuret Pep (<300) pg/mL Total Protein (6.4-8.2) g/dL 5.3 L Albumin (3.4-5.0) g/dL 1.5 L Lipase (<78) U/L TSH (0.36-3.74) uIU/mL Urine Color (Yellow) Urine Clarity (Clear) Urine pH (5-8) Ur Specific [place] (1.005-1.025) Urine Protein (Neg-Trace) mg/dL Urine Ketones (Negative) mg/dL Urine Blood (Negative) Urine Nitrite (Negative) Urine Bilirubin (Negative) Urine Urobilinogen (Up to 0.2) mg/dL Ur Leukocyte Esterase (Negative) Urine RBC (0-2) HPF Urine WBC (0-5) HPF Ur Epithelial Cells (Negative) HPF Urine Crystals (Negative) HPF Urine Bacteria (Negative) HPF Urine Casts (Negative) LPF Urine Mucus (Negative) Ur Culture Indicated? Ur Random Creatinine mg/dL Ur Random Sodium mmol/L Urine Glucose (Negative) mg/dL Fluid Source Peritoneal Fluid Color Yellow Fluid Clarity Clear Fluid WBC (0) uL 202 Fld Polynuclear WBCs % % 49 Fluid Mononuclear Cell % 51 Fluid Glucose (See Note) mg/dL 151 Fluid Albumin (See Note) g/dL <1.0 Digoxin (0.90-2.00) ng/mL 3.22 H* COVID-19 Source SARS-CoV-2 (PCR) (Negative) Influenza Type A (PCR) (Negative) Influenza Type B (PCR) (Negative) RSV (PCR) (Negative) MRSA (TEM-PCR) (Negative) Range/Units 06/24/25 06/25/25 06/25/25 09:42 05:48 10:00 WBC (4.4-10.8) 10^3/uL 11.77 H RBC (4.36-5.78) 10^6/uL 3.40 L Hgb (13.5-17.5) g/dL 9.6 L Hct (40.0-50.0) % 29.5 L MCV (80-95) fL 87 MCH (27.0-33.0) pg 28.2 MCHC (32.0-36.0) % 32.5 RDW (11.8-14.1) % 21.9 H Plt Count (130-400) 10^3/uL 142 MPV (8.0-11.0) fL 10.9 Immature Gran % % Neutrophils % % Band Neutrophils % % Lymphocytes % % Monocytes % % Eosinophils % % Basophils % % Metamyelocytes % Myelocytes % Nucleated RBC % (0.0-0.3) % Absolute Neutrophils (1.2-6.7) 10^3/uL Absolute Lymphocytes (1.2-3.4) 10^3/uL Absolute Monocytes (0.1-0.8) 10^3/uL Absolute Eosinophils (0.0-0.7) 10^3/uL Absolute Basophils (0.0-0.2) 10^3/uL RBC Morphology Polychromasia Poikilocytosis Anisocytosis PT (9.1-11.1) sec 11.4 H 10.9 INR (0.9-1.1) 1.1 1.1 APTT (20.6-30.2) sec D-Dimer VBG Lactate (<or=2.0) mmol/L Sodium (136-145) mmol/L 135 L Potassium (3.5-5.1) mmol/L 4.3 Chloride (98-107) mmol/L 103 Carbon Dioxide (21.0-32.0) mmol/L 23.3 Anion Gap (3-11) mmol/L 8.7 BUN (7-18) mg/dL 71 H Creatinine (0.70-1.30) mg/dL 2.5 H Est GFR (CKD-EPI 2020) (mL/min/1.73m2) 24.72 Glucose (74-106) mg/dL 182 H Hemoglobin A1c (<5.7) % Calcium (8.5-10.1) mg/dL 8.2 L Magnesium (1.8-2.4) mg/dL Total Bilirubin (0.2-1.0) mg/dL 0.6 Conjugated Bilirubin (0.0-0.2) mg/dL AST (15-37) U/L 29 ALT (16-63) U/L 19 Alkaline Phosphatase (46-116) U/L 154 H Ammonia (11-32) umol/L Troponin I (<or=76) ng/L NT-Pro-B Natriuret Pep (<300) pg/mL Total Protein (6.4-8.2) g/dL 5.2 L Albumin (3.4-5.0) g/dL 1.4 L Lipase (<78) U/L TSH (0.36-3.74) uIU/mL Urine Color (Yellow) Urine Clarity (Clear) Urine pH (5-8) Ur Specific [place] (1.005-1.025) Urine Protein (Neg-Trace) mg/dL Urine Ketones (Negative) mg/dL Urine Blood (Negative) Urine Nitrite (Negative) Urine Bilirubin (Negative) Urine Urobilinogen (Up to 0.2) mg/dL Ur Leukocyte Esterase (Negative) Urine RBC (0-2) HPF Urine WBC (0-5) HPF Ur Epithelial Cells (Negative) HPF Urine Crystals (Negative) HPF Urine Bacteria (Negative) HPF Urine Casts (Negative) LPF Urine Mucus (Negative) Ur Culture Indicated? Ur Random Creatinine mg/dL Ur Random Sodium mmol/L Urine Glucose (Negative) mg/dL Fluid Source Fluid Color Fluid Clarity Fluid WBC (0) uL Fld Polynuclear WBCs % % Fluid Mononuclear Cell % Fluid Glucose (See Note) mg/dL Fluid Albumin (See Note) g/dL Digoxin (0.90-2.00) ng/mL 4.21 H* Cancelled COVID-19 Source SARS-CoV-2 (PCR) (Negative) Influenza Type A (PCR) (Negative) Influenza Type B (PCR) (Negative) RSV (PCR) (Negative) MRSA (TEM-PCR) (Negative) Range/Units 06/26/25 06:00 WBC (4.4-10.8) 10^3/uL 11.73 H RBC (4.36-5.78) 10^6/uL 3.46 L Hgb (13.5-17.5) g/dL 9.8 L Hct (40.0-50.0) % 30.4 L MCV (80-95) fL 88 MCH (27.0-33.0) pg 28.3 MCHC (32.0-36.0) % 32.2 RDW (11.8-14.1) % 21.9 H Plt Count (130-400) 10^3/uL 121 L MPV (8.0-11.0) fL 10.1 Immature Gran % % Neutrophils % % Band Neutrophils % % Lymphocytes % % Monocytes % % Eosinophils % % Basophils % % Metamyelocytes % Myelocytes % Nucleated RBC % (0.0-0.3) % Absolute Neutrophils (1.2-6.7) 10^3/uL Absolute Lymphocytes (1.2-3.4) 10^3/uL Absolute Monocytes (0.1-0.8) 10^3/uL Absolute Eosinophils (0.0-0.7) 10^3/uL Absolute Basophils (0.0-0.2) 10^3/uL RBC Morphology Polychromasia Poikilocytosis Anisocytosis PT (9.1-11.1) sec 10.9 INR (0.9-1.1) 1.1 APTT (20.6-30.2) sec D-Dimer VBG Lactate (<or=2.0) mmol/L Sodium (136-145) mmol/L 136 Potassium (3.5-5.1) mmol/L 4.4 Chloride (98-107) mmol/L 106 Carbon Dioxide (21.0-32.0) mmol/L 21.5 Anion Gap (3-11) mmol/L 8.5 BUN (7-18) mg/dL 72 H Creatinine (0.70-1.30) mg/dL 2.4 H Est GFR (CKD-EPI 2020) (mL/min/1.73m2) 25.96 Glucose (74-106) mg/dL 133 H Hemoglobin A1c (<5.7) % Calcium (8.5-10.1) mg/dL 8.5 Magnesium (1.8-2.4) mg/dL Total Bilirubin (0.2-1.0) mg/dL 0.6 Conjugated Bilirubin (0.0-0.2) mg/dL AST (15-37) U/L 28 ALT (16-63) U/L 17 Alkaline Phosphatase (46-116) U/L 161 H Ammonia (11-32) umol/L Troponin I (<or=76) ng/L NT-Pro-B Natriuret Pep (<300) pg/mL Total Protein (6.4-8.2) g/dL 5.3 L Albumin (3.4-5.0) g/dL 1.5 L Lipase (<78) U/L TSH (0.36-3.74) uIU/mL Urine Color (Yellow) Urine Clarity (Clear) Urine pH (5-8) Ur Specific [place] (1.005-1.025) Urine Protein (Neg-Trace) mg/dL Urine Ketones (Negative) mg/dL Urine Blood (Negative) Urine Nitrite (Negative) Urine Bilirubin (Negative) Urine Urobilinogen (Up to 0.2) mg/dL Ur Leukocyte Esterase (Negative) Urine RBC (0-2) HPF Urine WBC (0-5) HPF Ur Epithelial Cells (Negative) HPF Urine Crystals (Negative) HPF Urine Bacteria (Negative) HPF Urine Casts (Negative) LPF Urine Mucus (Negative) Ur Culture Indicated? Ur Random Creatinine mg/dL Ur Random Sodium mmol/L Urine Glucose (Negative) mg/dL Fluid Source Fluid Color Fluid Clarity Fluid WBC (0) uL Fld Polynuclear WBCs % % Fluid Mononuclear Cell % Fluid Glucose (See Note) mg/dL Fluid Albumin (See Note) g/dL Digoxin (0.90-2.00) ng/mL 3.15 H* COVID-19 Source SARS-CoV-2 (PCR) (Negative) Influenza Type A (PCR) (Negative) Influenza Type B (PCR) (Negative) RSV (PCR) (Negative) MRSA (TEM-PCR) (Negative) Imaging CT scan - chest: report reviewed and image reviewed
[2025-06-26] MEDS: Umeclidinium 7 CAP INHALER 1 CAP IH (08:35)
[2025-06-26] MEDS: Budesonide/Formoterol 160/4.5 6 GM 60 PUFF INH IH ×2 (08:35→19:41)
[2025-06-26] MEDS: Normal Saline Flush 10 ML SYR IVP (08:55)
[2025-06-26] MEDS: Cholecalciferol (Vitamin D3) 1,000 UNIT TAB 5000 UNITS PO (08:57)
[2025-06-26] MEDS: Zinc Sulfate 220 MG TAB PO (08:57)
[2025-06-26] MEDS: Citalopram 20 MG TAB 10 MG PO (08:58)
[2025-06-26] MEDS: Pantoprazole 40 MG TABCR PO (08:58)
[2025-06-26] MEDS: Ascorbic Acid 500 MG TAB PO ×2 (08:58→19:58)
[2025-06-26] MEDS: Clopidogrel 75 MG TAB PO (08:58)
[2025-06-26] MEDS: Cyanocobalamin 500 MCG TAB 1000 MCG PO ×2 (08:58→19:58)
[2025-06-26] MEDS: Allopurinol 100 MG TAB 50 MG PO (08:58)
[2025-06-26] MEDS: valACYclovir 500 MG TAB PO (08:58)
[2025-06-26] MEDS: Apixaban 2.5 MG TAB PO ×2 (08:59→19:58)
[2025-06-26] MEDS: Fluconazole 150 MG TAB PO (09:01)
[2025-06-26] MEDS: Clotrimazole 1% 15 GM TUBE TP (09:04)
[2025-06-26] MEDS: Nystatin POWDER 60 GM JAR TP ×3 (09:05→19:58)
--- NOTE | 2025-06-26 09:11 | W.PM.PROGNOT ---
Date of Service Date of service: 06/26/25 Time of Service: 09:31 Assessment and Plan Assessment and plan (1) Digoxin toxicity: Status: Acute Assessment and plan: -Symtomatic since 06/19 -Levels were never severely elevated, peak was 4.75 with downtrend, but with low GFR this is not resolving quickly and patient continued to be intermittently bradycardic down to 29bpm -additionally BP was also lower over previous two days despite holding lisinopril -EKG without major changes, has shown some minor ST changes that could be digoxin toxicity, increasingly frequent bradycardic episodes down to 29 bpm on tele -digifab was ordered and was given on 06/24 -patient mental status continues to improve, more awake and eating. HR also improved both while awake and sleeping (2) Abdominal tenderness: Status: Acute Assessment and plan: -likely related to bruising and increased ascites -initially covered for SBP, but ascitic fluid not consistent with SBP given polys only at 50 (3) Toxic metabolic encephalopathy: Status: Acute Assessment and plan: -New since admission. -Initially a/w tremor, which has improved. -could digoxin toxicity -improving as noted above (4) Atrial tachycardia: Status: Acute Assessment and plan: -Triggered by sepsis -Unclear rhythm initially, but was in atrial fibrillation per cardiology with RVR, moved to ICU for rate control -Was on diltiazem drip, [facility] cardiology consulted, advised digoxin load 06/16 -Rate was much better controlled by 06/18. Echocardiogram with normal LVEF without fluid overload -On 06/19 concern that tremor and anorexia and depressed MS as above a/w digoxin toxicity, has been held since then -see above re: dig toxicity (5) Non-ST elevated myocardial infarction (non-STEMI): Status: Resolved Assessment and plan: -Mild elevation to 130 before Troponins trended down c/w type 2 NSTEMI related to atrial fibrillation/rate. -Has not had chest pain, repeat 06/23 trended down further to 51 in normal range. (6) Type 2 diabetes mellitus: Status: Chronic Assessment and plan: -Last known A1C 5.5 in February, 6.9% 06/20 -No longer on insulin at home -Started semaglutide this year, not getting here. -Continue SSI. FS have been higher, if they continue >180, start low dose glargine (7) Acute on chronic kidney failure: Status: Acute Assessment and plan: -CKD stage 3a, baseline creatinine around 1.4 -Challenging fluid balance with poor urine output and concern for heart failure, complicated by cirrhosis. -Diuresis was been paused on admission in favor of fluid resuscitation to increase urine output -Worsening creatinine after resuming furosemide. FENa 06/19 0.1% c/w prerenal. Echo 06/18 not c/w high IVC pressure. Metolazone and furosemide held 06/19. -06/20 gave a gentle liter of LR, some improvement in U/o over 24h but not great. -held lisinopril 06/21 -additional bolus 06/22 then continued maintenance as long as he isn't eating/drinking well. U/o improved 06/22 but minimal so far 06/23 -continue verma until urine output stable in normal range and MS improved, follow u/o -UOP ~500cc on 06/24, plan to DC IV fluids, encourage PO intake and monitor kidney function and urine output (8) Primary malignant colorectal neoplasm: Status: Acute Assessment and plan: -Started folfox in March, oncologist is Dr Luo at [facility]ology -Next (and last) chemotherapy was scheduled for Jun 21, will have to defer. -previous physician discussed with cancer center. DR. Luo's nurse with reach out with new f/u next week. (9) Cirrhosis: Assessment and plan: -With portal HTN, mild ascites noted on 06/22 u/s. 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 This complicates his renal failure and overall prognosis. -Worse ascites on CT 06/24, now s/p paracentesis (10) Decubitus ulcer of coccyx, stage 2: Status: Acute Assessment and plan: -Continue wound care and offloading. Stop lactulose, which makes this more difficult to keep clean. (11) Intertriginous candidiasis: Status: Acute Assessment and plan: -nystatin powder. (12) Moderate malnutrition: Status: Acute Assessment and plan: - As stated in complete detail and nutrition note from 06/25/2025 - Rest per nutrition recommendations will start zinc sulfate, vitamin C, increase dose of vitamin D and encourage patient to consume protein shakes - Will also allow conservative 8 units of glargine for recommended persistent elevated fasting glucose Subjective Subjective Interval history since last seen: Patient states that he feels significantly better as compared to previous days, though he still has some shaking. This explained to him this is likely residual effects of the digoxin but should continue to improve. Otherwise he has no complaints or concerns at this time. Exam Narrative Exam Narrative: chronically ill appearing older gentleman laying in bed in no acute distress, AOx4, heart irregularly irregular, rate between 30-70's, lungs CTAB, abdomen soft, non-tender, mildly distended, bilateral LE edema Objective Last Vital Signs Temp 96.4 F L 06/26/25 05:03 Pulse 64 06/26/25 07:01 Resp 22 06/26/25 07:01 BP 142/48 H 06/26/25 07:01 Pulse Ox 96 06/26/25 07:01 Laboratory Results - last 24 hr 06/26/25 06:00 WBC 11.73 H RBC 3.46 L Hgb 9.8 L Hct 30.4 L MCV 88 MCH 28.3 MCHC 32.2 RDW 21.9 H Plt Count 121 L MPV 10.1 PT 10.9 INR 1.1 Sodium 136 Potassium 4.4 Chloride 106 Carbon Dioxide 21.5 Anion Gap 8.5 BUN 72 H Creatinine 2.4 H Est GFR (CKD-EPI 2020) 25.96 Glucose 133 H Calcium 8.5 Total Bilirubin 0.6 AST 28 ALT 17 Alkaline Phosphatase 161 H Total Protein 5.3 L Albumin 1.5 L Digoxin 3.15 H* Time Spent with Patient Time Spent with Patient: >50 minutes Time was spent: preparing to see the patient(eg.review tests), obtaining and/or reviewing separately otained hiistory, ordering medications,tests, procedures, referring, communicating with other health director career services, indepentently interpreting results, counseling the patient and care coordination
--- NOTE | 2025-06-26 09:37 | CMPROGNOTE_ITS ---
Date of service: 06/26/25 Time of Service: 16:59 Care Management Progress Note Progress Note Text Progress Note Text: Andres was lying in bed with his eyes closed upon CM's arrival. He responded to his name and awoke. Andres was transferred from the ICU to the Med-Surg unit earlier today. Per report, he is making progress. The RN also noted that he has been resting for most of the day. At the time of the visit, Andres's dinner tray was at his bedside. He reported feeling a little hungry, and CM assisted in positioning the tray for easier access. Andres participated minimally in conversation but expressed appreciation for the care he is receiving. Updated clinical were sent to [facility]. CM will continue to follow. Discharge Potential Discharge Needs: PCP F/U Appt and Other (oncology follow up) Anticipated Barriers to Discharge: None Identified Patient/Family Education Needs: Review discharge instructions, discuss Ask Me Three Transportation: Private vehicle Plan: Anticipate Andres will be discharged to SNF with previous accepted bed offer at [facility]. It is recommended that Andres follow up with community providers, oncologist, palliative care and discharge plan of care. Andres will be discharged via private vehicle. CM will continue to follow. Social Determinants of Health Screening Social Determinants of health last assessed in clinic: 06/26/25 Will the Patient Participate in the Screening?: Yes Do you worry about having a steady place to live?: no Problems where you live: inadequate lighting In the past 12 months, have you had to go without electric, gas, oil or water in your home?: no 1. Within the past 12 months, we worried whether our food would run out before we got money to buy more.: Never true 2. Within the past 12 months, the food we bought just didn't last and we didn't have money to get more.: Never true Has lack of transportation kept you from medical appointments or from doing things needed for daily living?: no Has anyone in your life made you feel unsafe or unsupported?: no How hard is it for you to pay for the very basics like food, housing, medical care, and heating? Would you say it is:: Not hard at all Do you want help finding or keeping work or a job?: I do not need or want help If for any reason you need help with day-to-day activities such as bathing, prep aring meals, shopping, managing finances, etc., do you get the help you need?: I don?t need any help How often do you feel lonely or isolated from those around you?: Never Do you speak a language other than Armenian at home?: No Comments: electrical issue with ceiling light in living room, unsure what, but needs help from an tumbler operator. Plumbing issue with pump that provides water - has water but very poor water pressure - no leaks that he knows of but too expensive to fix right now without help (pt states $1400). Biological Technician broken, new one purchased but needs to be installed. Health Related Social Needs Health related social needs: inadequate housing (Z59.1) Health related social needs details: electrical issue with ceiling light in living room, unsure what, but needs help from an tumbler operator. Plumbing issue with pump that provides water - has water but very poor water pressure - no leaks that he knows of but too expensive to fix right now without help (pt states $1400). Biological Technician broken, new one purchased but needs to be installed.
[2025-06-26] MEDS: Protein Nutritional Supplement 16 GM 1 OUNCE PACKET PO ×3 (11:09→19:58)
[2025-06-26] MEDS: Ferrous Sulfate 325 MG TAB PO (12:13)
[2025-06-26] MEDS: Insulin Aspart 300 UNITS/3 ML PEN SC ×2 (12:13→21:39)
--- NOTE | 2025-06-26 12:30 | RT.EKG_ITS ---
APPROVED REPORT Exam: Resting ECG Reason for Exam: possible rhythm change Patient Location: I HR:92 bpm ECG Measurements Heart Rate 92 AXIS HI 215 P 14 QRSd 88 QRS 12 QT 343 T 208 QTc 425 Conclusion Sinus rhythm...normal P axis, V-rate 50- 99 Atrial premature complex...SV complex w/ short R-R interval Prolonged HI interval...HI >215, V-rate 91-120 Low voltage, precordial leads...precordial leads <1.0mV Nonspecific repol abnormality, diffuse leads...ST dep, T flat/neg, ant/lat/inf
--- NOTE | 2025-06-26 12:54 | IN_ITS ---
PT Notes Visit Reasons: Pneumonia; Atrial Fibrillation; Hypomagnesemia Inpatient Physical Therapy Evaluation Date: 06/26/2025 Referring Doctor: Dr Vogel PT Orders: PT CONSULT: PT evaluation and treatment d/t extended stay weakness and limited mobility Precautions: telemetry, IV Access, fragile skin , open area to coccxy,Ureña Patient Profile/Admitting Diagnosis: Andres is an 84yo male who presented to the ED 06/14/2025 s/p fall at home on 06/13/2025 and was admitted to the Med Surg unit with Sepsis, tachycardia , known colorectal CA, NSTEMI, Hypomagnesemia, DM 2, Venous stasis dermatitis. Pt had a decline in medical status and was moved to ICU on 06/23/2025 d/t bradycardia. Pt stabilized and PT was re-Consulted on 06/26/25. Social History/Home Situation: Andres resides in a private home with his . He is independent at baseline, using a cane occasionally. Reports a single fall just prior to admission, but no previous falls or balance issues. Independent with ADL. 4STE with rail on right going up. Equipment Owned/DME: cane Subjective: Andres is anxious to stand. States that today is the first day he has been up in 5 days. Objective: General Observation:Pt presented Resting in chair with telemetry in place, IV access, Ureña, Tremor RUE noted as pt was answering questions. Pt with obtunded , fragile skin with left forearm, Bruises to B knee , large area of erythema to right lower quadrant and rash to abdominal( Nurse aware) Mental Status: A&Ox3. Pleasant and cooperative throughout., agreeable to participate, able to follow instructions. Pain: reports discomfort in abdomen Vital Signs: Resting HR in 89 to low 90s increased to 114 with activity., Monitored throughout ROM: Right Upper Extremity: Shoulder flexion to 150*. Elbow motion WFL hand WFL Left Upper Extremity: Shoulder flexion to 150*. Elbow motion WFL. Hand WFL Right Lower Extremity: WFL Left Lower Extremity: WFL Strength: Right Upper Extremity: Shoulder flexion 3/5. Biceps 3/5. Triceps 3/5. grasp functional Left Upper Extremity: Shoulder flexion 3-/5. Biceps 3/5. Triceps 3/5. grasp functional Right Lower Extremity: Ankle DF 3/5 . Able to actively perform heel slide and LAQ, able to bridge Left Lower Extremity: Ankle DF 3/5 . Able to actively perform heel slide and LAQ. able to bridge Sensation: impaired sensation B hands > feet. Bed Mobility/Transfers: [] supine to sit: Max A of 2 sit to supine: Max A of 2 sit to stand : unable to rise at FWW; pull to bilingual operator Stedy Lift with MaxA of 3 chair to bed : Max A of 3 with Stedy lift, requiring tact cue at back and assist to keep anterior weight shift of trunk Gait: unable at this time Balance: [] Static Sitting: Normal with Supervision and UE support Dynamic Sitting: Fair - Static Standing: Unable to perform Dynamic Standing: Unable to perform Special Tests: Mobility Limitations Standardized Measure [facility] AM-PAC 6 clicks Basic Mobility Inpatient Short Form: Raw Score: 9 CMS Score: 81.38% deficit Informed Consent/Education: Patient instructed in purpose of PT consult and plan of care. Assessment: Patient is a 84year old male referred to physical therapy services with the diagnosis of bradycardia, ascitis, NSTEMI, sepsis d/t PNA and known Colorectal CA. Patient presents with clinical signs and symptoms consistent with admitting diagnosis, as demonstrated by the following impairment level findings: 1. impaired strength/ motor control BUE/LE musculature 2. impaired sitting/ standing balance 3. impaired pacing/ breath control 4. impaired functional activity tolerance 5. impaired skin integrity- coccyx, left forearm ,abdomen 6. Abdominal girth Impairments are contributing to the following functional limitations: 1. AMPAC score of 9 indicating high risk for readmission if discharge to the community 2. decline bed mobility skills 3. decline in transfer skills 4. unable to ambulate and perform stairs 5. Increased time to complete ADL/mobility tasks Patient is assessed as a Moderate 27089 complexity based on the following: History: 84 yo male with complex past medical history and comorbidities Examination: As stated above Presentation: Evolving Decision Making:moderate Goals: Goals X1 week 1. Supine-Sit Mod A of 2 2. Sit-Supine Mod A of 2 3. Sit-Stand mod A of 2 4. Stand-Sit mod A of 2 5. Bed-Chair step turn transfer with FWW with mod A of 2 and SBA of 1 6. Chair-Bed step turn transfer with FWW with mod A of 2 and SBA of 1 7. amb with FWW with close w/c follow with Mod A of 2 >10 feet Plan of Care/Treatment Plan: 1-2x/day, 7 days/week x 1 week. Plan of care has been reviewed with the OPHTHALMIC MEDICAL ASSISTANT providing the service under Physical Therapy direction. Initiate Physical Therapy intervention for strengthening, bed mobility, transfers, gait, stairs, balance training, use of assistive device. DISCHARGE RECOMMENDATIONS: [] [] Home with no services [] [] Home with services [specify] [] Home with outpatient PT [] [] SNF for continued rehabilitation [] [] Electrical Installation Inspector Care [] [X] short term SNF versus LTC based on ability to participate and progress w ith his functional mobility d/t compromised medical status TREATMENT CODE/TIME: 28881,56244/ [id number]
--- NOTE | 2025-06-26 13:38 | W.PC.ACHO ---
Registration Status: ADM IN Primary Language: Preferred Language: Kazakh ED Information & Data Chief Complaint Fall/Non TraumaCriteria 06/14/25 01:47 Triage Note BIBEMS, fall at home, no LOC 06/14/25 01:04 , pt states legs just gave out. weakness, uses cane baseline. SOB w/ exertion, HR 140-150s afib, no known afib. HR 80s on transport. denies chest pain. got ~ 500ml. 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 due to underlying condition, with fat layer exposed Renal insufficiency Cirrhosis Cellulitis Hx TIA/stroke w/o resid SAMMI on CPAP HLD (hyperlipidemia) HTN (hypertension) Venous stasis ulcer Acute kidney injury (nontraumatic) Scalp hematoma Chest wall contusion Syncope Diabetes mellitus Community acquired pneumonia (Last Reviewed 12/28/24 @ 10:39 by Yanet Francis DPM) History of surgery History of cholecystectomy H/O rectal sphincterotomy History of appendectomy History of total right hip arthroplasty Most Recent Vital Signs Temperature 35.8 C L 06/26/25 11:00 Temperature Source Temporal Artery Scan 06/26/25 11:00 Pulse 91 H 06/26/25 13:01 Pulse Rhythm Irregular 06/14/25 06:44 Pulse 94 H 06/26/25 13:01 Respiratory Rate 17 06/26/25 13:01 Respiratory Effort Normal 06/23/25 11:35 Respiratory Depth Normal 06/23/25 11:35 Respiratory Pattern Tachypnea 06/23/25 11:35 Blood Pressure 134/93 H 06/26/25 13:01 Blood Pressure Mean 103 06/26/25 13:01 Blood Pressure Position Supine 06/23/25 11:35 Pulse Oximetry 95 06/26/25 13:01 Oxygen Delivery Method Cpap 06/25/25 03:30 Oxygen Flow Rate 0 06/25/25 20:01 Fraction of Inspired Oxygen (FIO2) 21 06/26/25 05:23 Pain Level 0 06/25/25 08:40 Comment nurse notified 06/22/25 03:19 Comment BP cuff site changed 06/16/25 22:28 Allergies cephalexin Adverse Reaction (Intermediate, Verified 06/14/25 01:35) genitourinary edema Pt denies allergy to medications Precautions Isolation Fall precaution 06/14/25 01:09 Active Medications Generic Name Dose Route Start Last Admin Trade Name Freq PRN Reason Stop Dose Admin Acetaminophen 650 mg 06/14/25 06:41 06/25/25 16:29 Acetaminophen 325 Mg Tab PO 650 mg Q6H PRN PRN Administration Allopurinol 50 mg 06/22/25 08:30 06/26/25 08:58 Allopurinol 100 Mg Tab PO 50 mg DAILY HENRY Administration Apixaban 2.5 mg 06/21/25 20:00 06/26/25 08:59 Apixaban 2.5 Mg Tab PO 2.5 mg BID HENRY Administration Ascorbic Acid 500 mg 06/26/25 08:30 06/26/25 08:58 Ascorbic Acid 500 Mg Tab PO 500 mg BID HENRY Administration Atorvastatin Calcium 40 mg 06/14/25 20:00 06/25/25 19:37 Atorvastatin 40 Mg Tab PO 40 mg QPM HENRY Administration Budesonide/Formoterol Fumarate 2 puff 06/14/25 08:30 06/26/25 08:35 Budesonide/Formoterol 160/4.5 6 Gm 60 Puff Inh IH 2 puffs BID HENRY Administration Cholecalciferol 5,000 units 06/26/25 08:30 06/26/25 08:57 Cholecalciferol (Vitamin D3) 1,000 Unit Tab PO 5,000 units DAILY HENRY Administration Citalopram Hydrobromide 10 mg 06/15/25 08:30 06/26/25 08:58 Citalopram 20 Mg Tab PO 10 mg DAILY HENRY Administration Clopidogrel Bisulfate 75 mg 06/23/25 08:30 06/26/25 08:58 Clopidogrel 75 Mg Tab PO 75 mg DAILY HENRY Administration Clotrimazole 0 gm 06/24/25 08:30 06/26/25 09:04 Clotrimazole 1% 15 Gm Tube TP 1 applic BID PRN PRN Administration Cyanocobalamin 1,000 mcg 06/14/25 08:30 06/26/25 08:58 Cyanocobalamin 500 Mcg Tab PO 1,000 mcg BID HENRY Administration Ferrous Sulfate 325 mg 06/15/25 12:00 06/26/25 12:13 Ferrous Sulfate 325 Mg Tab PO 325 mg DAILY@1200 HENRY Administration Fluconazole 150 mg 06/26/25 08:30 06/26/25 09:01 Fluconazole 150 Mg Tab PO 150 mg DAILY HENRY Administration Sodium Chloride 500 mls @ 0 mls/hr 06/16/25 08:47 06/25/25 07:00 Saline 500ml Bag IV Infused PRN PRN Infusion As Directed Insulin Aspart 0 units 06/14/25 12:00 06/26/25 12:13 Insulin Aspart 300 Units/3 Ml Pen SC 2 units 0800,1200,1700,2200 HENRY Administration Protocol Multi-Ingredient Supplement 1 ounce 06/26/25 11:00 06/26/25 11:09 Protein Nutritional Supplement 16 Gm 1 Ounce Packet PO 1 ounce TID HENRY Administration Nystatin 0 gm 06/23/25 14:00 06/26/25 09:05 Nystatin Powder 60 Gm Jar TP 1 applic TID HENRY Administration Pantoprazole Sodium 40 mg 06/24/25 08:00 06/26/25 08:58 Pantoprazole 40 Mg Tabcr PO 40 mg DAILY@0730 HENRY Administration Sodium Chloride 0 ml 06/16/25 10:24 06/26/25 08:55 Normal Saline Flush 10 Ml Syr IVP 40 ml PRN PRN Administration Umeclidinium [place] 1 cap 06/14/25 08:30 06/26/25 08:35 Umeclidinium 7 Cap Inhaler IH 1 inh DAILY HENRY Administration Valacyclovir HCl 500 mg 06/22/25 08:30 06/26/25 08:58 Valacyclovir 500 Mg Tab PO 500 mg DAILY HENRY Administration Zinc Sulfate 220 mg 06/26/25 08:30 06/26/25 08:57 Zinc Sulfate 220 Mg Tab PO 220 mg DAILY HENRY Administration IV IV Catheter Type [Right Port] Port-a-cath (double) IV Catheter Type [Left Upper Saline Lock Arm] IV Catheter Type [Right Saline Lock Forearm] IV Catheter Type [Left Saline Lock Antecubital] IV Catheter Gauge [Right Port] 19 IV Catheter Gauge [Left Upper 20 Arm] IV Catheter Gauge [Right 20 Forearm] IV Catheter Gauge [Left 20 Antecubital] Diagnostics 06/26/25 06/23/25 Range/Units 06:00 13:30 WBC 11.73 H (4.4-10.8) 10^3/uL RBC 3.46 L (4.36-5.78) 10^6/uL Hgb 9.8 L (13.5-17.5) g/dL Hct 30.4 L (40.0-50.0) % MCV 88 (80-95) fL MCH 28.3 (27.0-33.0) pg MCHC 32.2 (32.0-36.0) % RDW 21.9 H (11.8-14.1) % Plt Count 121 L (130-400) 10^3/uL MPV 10.1 (8.0-11.0) fL PT 10.9 (9.1-11.1) sec INR 1.1 (0.9-1.1) Sodium 136 (136-145) mmol/L Potassium 4.4 (3.5-5.1) mmol/L Chloride 106 (98-107) mmol/L Carbon Dioxide 21.5 (21.0-32.0) mmol/L Anion Gap 8.5 (3-11) mmol/L BUN 72 H (7-18) mg/dL Creatinine 2.4 H (0.70-1.30) mg/dL Est GFR (CKD-EPI 2020) 25.96 (mL/min/1.73m2) Glucose 133 H (74-106) mg/dL Calcium 8.5 (8.5-10.1) mg/dL Total Bilirubin 0.6 (0.2-1.0) mg/dL AST 28 (15-37) U/L ALT 17 (16-63) U/L Alkaline Phosphatase 161 H (46-116) U/L Total Protein 5.3 L (6.4-8.2) g/dL Albumin 1.5 L (3.4-5.0) g/dL Digoxin 3.15 H* (0.90-2.00) ng/mL Path Cons Comment SEE COMMENT 06/23/25 11:00 Blood Culture - Preliminary Blood NO GROWTH 72 HOURS 06/23/25 13:30 Body Fluid Culture - Preliminary Peritoneal Gram Stain - Final 06/23/25 12:35 Blood Culture - Preliminary Blood NO GROWTH 48 HOURS [id number] Documentation Fingerstick Glucose Start: 06/14/25 08:28 Freq: .ACHS Status: Active Protocol: Activity Type Activity Date Activity User E-sign Co-sign Detail Recorded Client Recorded Date Recorded By Document 06/26/25 11:34 BKG DAEMON(3) [id number] 06/26/25 11:35 BKG DAEMON(4) Intake and Output - 24 Hour Total 06/14/25 00:50 thru 06/26/25 13:14 Intake Total 96422.367 Output Total 8835 Balance 99793.367 Weight 116.5 kg Intake: [place] 79452.367 Oral 8743 Output: Urine 8835 Other: Urine Color Straw Urine Appearance Clear Urine Odor Normal Comment no void during my shift: patient frequently bladder scanned, verma placed per dr order. Stool Size Smear Stool Characteristics Liquid Brown Bloody Urinary Catheter Urinary Catheter Date of 06/18/25 Insertion [Urethral (Verma)] Time of insertion [Urethral ( 18:06 Verma)] Falls Risk Assessment History of Falls Previous History 06/23/25 11:35 Contributing Factors Confusion 06/23/25 11:35 Ambulatory Aids Uses ambulatory device + 06/23/25 11:35 Tubes/Lines With any additional score 06/23/25 11:35 Gait Evaluation W/any additional score 06/23/25 11:35 Cognition Cognitive impairment 06/23/25 11:35 Fall Total Score 103 06/23/25 11:35 Level of Risk Maximum Risk 06/23/25 11:35 Problems (Last Updated 05/18/25 @ 09:19 by Charmaine Bowers CMA) Moderate malnutrition (Acute) Ascites (Acute) Atrial fibrillation (Chronic) Intertriginous candidiasis (Acute) Decubitus ulcer of coccyx, stage 2 (Acute) Abdominal tenderness (Acute) Digoxin toxicity (Acute) SBP (spontaneous bacterial peritonitis) (Acute) Toxic metabolic encephalopathy (Acute) Tremor (Acute) Acute on chronic kidney failure (Acute) Advance care planning (Acute) Venous stasis dermatitis of both lower extremities (Acute) 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 Rechecked via tympanic temp probe and got 34.6. Placed patient on bear hugger at this time at 38 degrees Celsius. Initialized on 06/17/25 20:28 - END OF NOTE 06/14/25 15:41 Nursing Notes by Kathrine Castrejon Access chart to reconcile EKG orders with EKG's in [facility]. Nursing Note: Initialized on 06/14/25 15:41 - END OF NOTE 06/14/25 07:50 Nursing Notes by Reina Acuna Nursing Note: Transfer patient to ICU. Gave report to the receiving nurse at ICU. Initialized on 06/14/25 07:50 - END OF NOTE 06/14/25 03:56 Nursing Notes by Mary Jane Peralta Nursing Note:0201 diltiazem not given/acknowledged at this time due to provider verbal cancellation due to HR and rhythm at time. Initialized on 06/14/25 03:56 - END OF NOTE v v v v v v v v v Sending and/or Receiving Nurses: Please use comment section below to note any information pertinent to the patient hand-off not included above. Information / Comments: Alert and oriented, less sleepy, but easily arrousible, crackles in bases, sob w/ exertion, wears CPAP, tries to drink w/ it on, NSR today got EKG, Scattered edema to arms hips, legs, ascites in abd, smear of inc bm today, will continue until increase in luic harris in [place], 2 person w/ steady lift, decreased appetite Report received from: Zarina RN in ICU at 1330
--- NOTE | 2025-06-26 15:13 | CHAPLAIN ---
I visited with Andres while he was still in the ICU. He was moved out to Med/Surg later in the day. He said he's feeling better. I asked if he was connected to the [employer] [employer], as it says on the [facility] roster, and I've kept forgetting to ask him. He said he was once, but not anymore. He was resting in bed and still seem tired. I didn't stay long. His family has been visiting often.
[2025-06-26] MEDS: Atorvastatin 40 MG TAB PO (19:58)
[2025-06-27] VITALS (7 sets, daily range): BP systolic 123–172; BP diastolic 54–70; PULSE 82–94; RESP 14–20; TEMP 35.4–36.2; O2SAT 92–98
[2025-06-27 07:41] LABS: HCT 30.3 % (40.0-50.0); HGB 9.6 g/dL (13.5-17.5); MCH 27.9 pg (27.0-33.0); MCHC 31.7 % (32.0-36.0); MCV 88 fL (80-95); MPV 10.2 fL (8.0-11.0); Platelet Count 112 10^3/uL (130-400); RBC 3.44 10^6/uL (4.36-5.78); RDW-SD 71.8 fL; WBC 12.55 10^3/uL (4.4-10.8)
[2025-06-27 07:53] LABS: Anion Gap 7.9 mmol/L (3-11); BUN 68 mg/dL (7-18); CO2 24.1 mmol/L (21.0-32.0); Calcium 8.7 mg/dL (8.5-10.1); Chloride 108 mmol/L (98-107); Estimated GFR 34.35 (mL/min/1.73m2); Glucose 129 mg/dL (74-106); Potassium 4.4 mmol/L (3.5-5.1); RDW 22.6 % (11.8-14.1); Sodium 140 mmol/L (136-145)
[2025-06-27] MEDS: Protein Nutritional Supplement 16 GM 1 OUNCE PACKET PO ×3 (08:13→21:33)
[2025-06-27] MEDS: Nystatin POWDER 60 GM JAR TP ×3 (08:13→21:34)
[2025-06-27] MEDS: Fluconazole 150 MG TAB PO (08:13)
[2025-06-27] MEDS: Zinc Sulfate 220 MG TAB PO (08:13)
[2025-06-27] MEDS: Pantoprazole 40 MG TABCR PO (08:14)
[2025-06-27] MEDS: Clopidogrel 75 MG TAB PO (08:14)
[2025-06-27] MEDS: Ascorbic Acid 500 MG TAB PO ×2 (08:14→21:33)
[2025-06-27] MEDS: Apixaban 2.5 MG TAB PO (08:14)
[2025-06-27] MEDS: Cholecalciferol (Vitamin D3) 1,000 UNIT TAB 5000 UNITS PO (08:14)
[2025-06-27] MEDS: Cyanocobalamin 500 MCG TAB 1000 MCG PO ×2 (08:14→21:33)
[2025-06-27] MEDS: valACYclovir 500 MG TAB PO (08:14)
[2025-06-27] MEDS: Allopurinol 100 MG TAB 50 MG PO (08:15)
[2025-06-27] MEDS: Citalopram 20 MG TAB 10 MG PO (08:15)
[2025-06-27] MEDS: Budesonide/Formoterol 160/4.5 6 GM 60 PUFF INH IH ×2 (08:22→22:06)
[2025-06-27] MEDS: Umeclidinium 7 CAP INHALER 1 CAP IH (08:22)
--- NOTE | 2025-06-27 09:32 | CMPROGNOTE_ITS ---
Date of service: 06/27/25 Time of Service: 14:29 Care Management Progress Note Progress Note Text Progress Note Text: Andres was sitting up in his chair and visiting with Mami and his granddaughter when CM met with him. Per provider, Andres is medically ready for discharge. [facility] has accepted Andres for STR and anticipate he will discharge there tomorrow morning. Both Andres and Mami are agreeable to this plan. Andres shares he feels HH services following STR will be beneficial to him. CM notified [facility] Martha Morris of his anticipated discharge plan. CM will continue to follow. Discharge Potential Discharge Needs: PCP F/U Appt Anticipated Barriers to Discharge: None Identified Patient/Family Education Needs: Review discharge instructions, discuss Ask Me Three Transportation: Private vehicle Plan: Anticipate Andres will be discharged to [facility] for STR tomorrow morning. It is recommended that Andres follow up with community providers, oncologist, palliative care and discharge plan of care. Transportation recommendation by PT are [facility] for SNF; Will utilize [facility]. CM will continue to follow. Social Determinants of Health Screening Social Determinants of health last assessed in clinic: 06/27/25 Will the Patient Participate in the Screening?: Yes Do you worry about having a steady place to live?: no Problems where you live: inadequate lighting In the past 12 months, have you had to go without electric, gas, oil or water in your home?: no 1. Within the past 12 months, we worried whether our food would run out before we got money to buy more.: Never true 2. Within the past 12 months, the food we bought just didn't last and we didn't have money to get more.: Never true Has lack of transportation kept you from medical appointments or from doing things needed for daily living?: no Has anyone in your life made you feel unsafe or unsupported?: no How hard is it for you to pay for the very basics like food, housing, medical care, and heating? Would you say it is:: Not hard at all Do you want help finding or keeping work or a job?: I do not need or want help If for any reason you need help with day-to-day activities such as bathing, prep aring meals, shopping, managing finances, etc., do you get the help you need?: I don?t need any help How often do you feel lonely or isolated from those around you?: Never Do you speak a language other than Nigerian at home?: No Comments: electrical issue with ceiling light in living room, unsure what, but needs help from an professor of law. Plumbing issue with pump that provides water - has water but very poor water pressure - no leaks that he knows of but too expensive to fix right now without help (pt states $1400). [employer] Instrument Tuner broken, new one purchased but needs to be installed. Health Related Social Needs Health related social needs: inadequate housing (Z59.1) Health related social needs details: electrical issue with ceiling light in living room, unsure what, but needs help from an professor of law. Plumbing issue with pump that provides water - has water but very poor water pressure - no leaks that he knows of but too expensive to fix right now without help (pt states $1400). Reed Or Wind Instrument Tuner broken, new one purchased but needs to be installed.
--- NOTE | 2025-06-27 09:33 | PGE_ITS ---
Date of Service Date of service: 06/27/25 Time of Service: 09:33 Assessment and Plan Assessment and plan (1) Digoxin toxicity: Status: Acute Assessment and plan: -Symtomatic since 06/19 -Levels were never severely elevated, peak was 4.75 with downtrend, but with low GFR this is not resolving quickly and patient continued to be intermittently bradycardic down to 29bpm -additionally BP was also lower over previous two days despite holding lisinopril -EKG without major changes, has shown some minor ST changes that could be digoxin toxicity, increasingly frequent bradycardic episodes down to 29 bpm on tele -digifab was ordered and was given on 06/24 -patient mental status continues to improve, more awake and eating. HR also improved both while awake and sleeping (2) Abdominal tenderness: Status: Acute Assessment and plan: -likely related to bruising and increased ascites -initially covered for SBP, but ascitic fluid not consistent with SBP given polys only at 50 (3) Toxic metabolic encephalopathy: Status: Acute Assessment and plan: -New since admission. -Initially a/w tremor, which has improved. -could digoxin toxicity -improving as noted above (4) Atrial tachycardia: Status: Acute Assessment and plan: -Triggered by sepsis -Unclear rhythm initially, but was in atrial fibrillation per cardiology with RVR, moved to ICU for rate control -Was on diltiazem drip, [facility] cardiology consulted, advised digoxin load 06/16 -Rate was much better controlled by 06/18. Echocardiogram with normal LVEF without fluid overload -On 06/19 concern that tremor and anorexia and depressed MS as above a/w digoxin toxicity, has been held since then -see above re: dig toxicity (5) Non-ST elevated myocardial infarction (non-STEMI): Status: Resolved Assessment and plan: -Mild elevation to 130 before Troponins trended down c/w type 2 NSTEMI related to atrial fibrillation/rate. -Has not had chest pain, repeat 06/23 trended down further to 51 in normal range. (6) Type 2 diabetes mellitus: Status: Chronic Assessment and plan: -Last known A1C 5.5 in February, 6.9% 06/20 -No longer on insulin at home -Started semaglutide this year, not getting here. -Continue SSI. FS have been higher, if they continue >180, start low dose gl argine (7) Acute on chronic kidney failure: Status: Acute Assessment and plan: -CKD stage 3a, baseline creatinine around 1.4 -Challenging fluid balance with poor urine output and concern for heart failure, complicated by cirrhosis. -Diuresis was been paused on admission in favor of fluid resuscitation to increase urine output -Worsening creatinine after resuming furosemide. FENa 06/19 0.1% c/w prerenal. Echo 06/18 not c/w high IVC pressure. Metolazone and furosemide held 06/19. -06/20 gave a gentle liter of LR, some improvement in U/o over 24h but not great. -held lisinopril 06/21 -additional bolus 06/22 then continued maintenance as long as he isn't eating/drinking well. U/o improved 06/22 but minimal so far 06/23 -continue verma until urine output stable in normal range and MS improved, follow u/o -UOP improved, up to 1.1L on 06/26 continue to encourage PO intake and monitor kidney function and urine output (8) Primary malignant colorectal neoplasm: Status: Acute Assessment and plan: -Started folfox in March, oncologist is Dr Luo at [facility] -Next (and last) chemotherapy was scheduled for Jun 21, will have to defer. -previous physician discussed with cancer center. DR. Luo's nurse with reach out with new f/u at [place] (9) Cirrhosis: Assessment and plan: -With portal HTN, mild ascites noted on 06/22 u/s. 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 This complicates his renal failure and overall prognosis. -Worse ascites on CT 06/24, now s/p paracentesis without rapid reaccumualation (10) Decubitus ulcer of coccyx, stage 2: Status: Acute Assessment and plan: -Continue wound care and offloading. Stop lactulose, which makes this more difficult to keep clean. (11) Intertriginous candidiasis: Status: Acute Assessment and plan: -nystatin powder. (12) Moderate malnutrition: Status: Acute Assessment and plan: - As stated in complete detail and nutrition note from 06/25/2025 - Rest per nutrition recommendations will start zinc sulfate, vitamin C, increase dose of vitamin D and encourage patient to consume protein shakes Subjective Subjective Interval history since last seen: Patient states that he is continuing to feel better and that he understands the importance of increasing his PO intake despite not having much of an appetite. Exam Narrative Exam Narrative: chronically ill appearing older gentleman laying in bed in no acute distress, AOx4, heart irregularly irregular, rate between 30-70's, lungs CTAB, abdomen soft, non-tender, mildly distended, bilateral LE edema Objective Last Vital Signs Temp 95.7 F L 06/27/25 07:10 Pulse 94 H 06/27/25 07:10 Resp 14 06/27/25 07:10 BP 172/70 H 06/27/25 07:10 Pulse Ox 92 06/27/25 08:25 Laboratory Results - last 24 hr 06/23/25 06/27/25 13:30 07:35 WBC 12.55 H RBC 3.44 L Hgb 9.6 L Hct 30.3 L MCV 88 MCH 27.9 MCHC 31.7 L RDW 22.6 H Plt Count 112 L MPV 10.2 Sodium 140 Potassium 4.4 Chloride 108 H Carbon Dioxide 24.1 Anion Gap 7.9 BUN 68 H Creatinine 1.9 H Est GFR (CKD-EPI 2020) 34.35 Glucose 129 H Calcium 8.7 Path Cons Comment SEE COMMENT Time Spent with Patient Time Spent with Patient: >50 minutes Time was spent: preparing to see the patient(eg.review tests), obtaining and/or reviewing separately otained hiistory, ordering medications,tests, procedures, referring, communicating with other health primary care coordinator, indepentently interpreting results, counseling the patient and care coordination
--- NOTE | 2025-06-27 10:06 | PTTR_ITS ---
PT Notes Visit Reasons: Pneumonia; Atrial Fibrillation; Hypomagnesemia Inpatient Physical Therapy Treatment Note [facility] Date: 06/27/2025 PRECAUTIONS: telemetry, IV Access, fragile skin , open area to coccyx ,Verma, external hemorrhoids SUBJECTIVE: am session He requested to use the bathroom pm session: pt reported his heels hurt. OBJECTIVE: am session : Pt presented semireclined in bed verma in place . Slight delay in response to questions pm : presented reclined in chair with pillows supporting all extremities. ? ? abdominal girth at PSIS ~60inches ? PAIN: in heels and buttocks VITALS: ?Monitored via telemetry Therapeutic Activities ([id number][]): Direct one-on-one instruction in dynamic activities to improve functional performance. ?? Provided skilled cues and instruction on performance and technique throughout. ? BED MOBILITY/TRANSFERS? AM session: Supine-sit: max A of 2 pt able to assist with moving LEs to edge and able to hold onto rail. He required hand held assist pull trunk forward ? Sit-stand: from bed with UE on FWW Max A of 2 ? - from commode at Stedy Lift Max A of 3 ? Stand-sit: from the FWW to commode Max A of 2 assist needed for slowing descent ? - from stedy lift max A of 2? ? ? Bed-Commode: step turn with FWW max A of 2 small side steps tremulous/ motor control deficit BUE and LE? Commode to chair: Stedy lift assist of 2 PM Session Exercises: seated BLE ankle pumps, LAQ, marching BUE elbow extension with shoulder flexion ~90 degrees sit to stand from chair x 2 trials with BUE on FWW ; 1st trial min A of 2 , 2nd trial min A of 1 and CGA of 1. stand to sit with BUE FWW: min A of 1 and CGA of 1 Neuromuscular Re-education ([id number][]): Activities that facilitate re-education of movement balance, posture, coordination, and proprioception or kinesthetic sense, requiring skilled tactile and verbal cues AM session only: - static sit at EOB with BUE and LE support midline with tactile cue to keep a nterior weight shift. -static therapy administrative assistant Stedy lift with mod A of 2 and verbal cues for anterior weight shift for toilet hygiene and assessment of rectal bleeding by RN. 2nd trial with max A of 2 with 20 sec ASSESSMENT:? Pt continues with postural control deficits. He is limited by BLE weakness and functional activity tolerance. He demonstrates progress with standing at FWW as well as ability to advance feet for step turn transfer from bed. Will progress with stepping for transfers and ambulation next session. PLAN: 1-2x/day, 7 days/week x 1 week. Plan of care has been reviewed with the LEAN LEADER providing the service under Physical Therapy direction. Initiate Physical Therapy intervention for strengthening, bed mobility, transfers, gait, stairs, balance training, use of assistive device. TREATMENT CODE/TIME:1st session 79807, [id number]/ [id number] 2nd session [id number]/ [id number] DISCHARGE RECOMMENDATION: Short term SNF question need for LTP if unable to progress with goals
[2025-06-27 10:44] LABS: Lactate Dehydrogenase (LD), BF 75 U/L
[2025-06-27 10:54] LABS: Protein,Total, BF 1.0 g/dL
[2025-06-27] MEDS: Insulin Aspart 300 UNITS/3 ML PEN SC ×3 (12:27→21:36)
[2025-06-27] MEDS: Acetaminophen 325 MG TAB 650 MG PO (12:52)
[2025-06-27] MEDS: Ferrous Sulfate 325 MG TAB PO (12:53)
--- NOTE | 2025-06-27 14:24 | OTIE_ITS ---
Occupational Therapy Notes Inpatient Occupational Therapy Evaluation Date: 06/27/25 Referring Doctor: Dr. Jaspreet BORGES Orders: Non Urgent Precautions: Fall, Standard, Full PATIENT PROFILE/ADMITTING DIAGNOSIS: Pt is a 84 year old male who is admitted to [facility] with the following dx of Sepsis, tachycardia , known colorectal CA, NSTEMI, Hypomagnesemia, DM 2, Venous stasis dermatitis. Pt had a decline in medical status and was moved to ICU on 06/23/2025 d/t bradycardia. Past Medical History: All Active Problems (Updated 06/14/25 @ 18:36 by Joaquín Felix MD) Venous stasis dermatitis of both lower extremities (Acute) Immunocompromised state due to drug therapy (Acute) Sepsis due to pneumonia (Acute) Non-ST elevated myocardial infarction (non-STEMI) (Acute) Atrial tachycardia (Acute) Pneumonia (Acute) Sepsis (Acute) Cystic kidney disease, acquired (Acute) Edema of both lower extremities (Acute) Osteoarthritis (Chronic) Megaloblastic anemia due to B12 deficiency (Acute) Restrictive lung disease (Acute) Cyst of kidney, acquired (Acute) Primary malignant colorectal neoplasm (Acute) Bradycardia (Acute) Barretts esophagus (Acute) Hypomagnesemia (Acute) Generalized anxiety disorder (Acute) Neuropathy due to type 2 diabetes mellitus (Acute) Type 2 diabetes mellitus (Acute) Chronic kidney disease, stage 3 (Acute) Essential hypertension (Acute) Obstructive sleep apnea syndrome (Chronic) Iron deficiency anemia (Acute) Screening for malignant neoplasm of skin (Acute) Abnormal skin growth (Acute) Actinic keratoses (Acute) Seborrheic keratoses (Acute) Disorder of the skin and subcutaneous tissue, unspecified (Acute) Leg wound, right (Acute) Umbilical hernia (Acute) Hyperlipidemia (Chronic) Hypertension (Chronic) Obesity (Chronic) Sleep apnea (Chronic) COPD (chronic obstructive pulmonary disease) (Chronic) GERD (gastroesophageal reflux disease) (Chronic) Gout (Chronic) Stasis dermatitis of both legs (Chronic) Anemia (Acute) Diabetes mellitus type 2 in obese (Acute) Sinus bradycardia (Acute) 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) (Acute) Cellulitis of leg, right (Acute) Chronic venous stasis dermatitis of both lower extremities (Acute) COPD (chronic obstructive pulmonary disease) (Chronic) DVT prophylaxis (Acute) Ulcer of right lower leg (Acute) Venous stasis (Acute) Venous stasis ulcer of ankle limited to breakdown of skin (Acute) Leg length discrepancy (Acute 02/09/18) Primary osteoarthritis of right knee (Acute 11/01/17) Mitral valve regurgitation (Chronic) CVA (cerebral vascular accident) (Chronic) CKD stage 3 due to type 2 diabetes mellitus (Acute) Diabetic neuropathy (Acute) ORVILLE positive (Acute) Onychomycosis (Acute) Medical History (Updated 06/14/25 @ 18:36 by Joaquín Felix MD) Gout Severe obesity Tinnitus Hernia of anterior abdominal wall Family history of malignant neoplasm of prostate Proteinuria Idiopathic stabbing headache Antinuclear factor positive History of CVA (cerebrovascular accident) without residual deficits Kidney mass COVID Cutaneous abscess of abdominal wall Slurred speech Weakness Diabetic ulcer of right lower leg associated with diabetes mellitus due to underlying condition, with fat layer exposed Renal insufficiency Cirrhosis Cellulitis Hx TIA/stroke w/o resid SAMMI on CPAP HLD (hyperlipidemia) HTN (hypertension) Venous stasis ulcer right lateral calfAcute kidney injury (nontraumatic) Scalp hematoma Chest wall contusion Syncope Diabetes mellitus Community acquired pneumonia With hypoxia and bronchospasm. Surgical History History of surgery Debridement of right leg wound with ApligrafHistory of cholecystectomy H/O rectal sphincterotomy History of appendectomy History of total right hip arthroplasty Social History/Home Situation: Pt lives in a private home with his . He notes that she does help him with his LE dressing and bathing. He reports that he has a tub shower which he did have some difficulty with transferring at baseline. He does state that he had HH services at one point a long time ago. He does not report having them recently. Equipment owned/DME: [employer], FWW SUBJECTIVE: Pt was sitting in the chair when OT arrived with his and great granddaughter in the room. He notes that he is exhausted today and feels so tired. He does report that he thinks he is going to be leaving soon. OBJECTIVE: General Observation: Pleasant, IV in (R) UE Mental Status: A&Ox3 Pain: no c/o pain with OT Vital Signs: [] ROM: RUE AROM WFL L UE AROM WFL STRENGTH: RUE 4-/5 throughout globally LUE 4-/5 throughout globally FUNCTIONAL MOBILITY/ADLS: DRESSING seated in chair Dressing UE (I) [facility] gown Dressing LE max (A) don and doffing (B) socks which is pts baseline his (A) him with this GROOMING with min vc in the seated position, pt is (I) TOILETING verma in place EATING (I) BALANCE: Static sitting Normal Dynamic Sitting Normal INFORMED CONSENT/EDUCATION: Pt instructed in purpose of OT Consult and plan of care. ASSESSMENT: Patient is a 84-year-old male referred to occupational therapy services with diagnosis of Sepsis, tachycardia , known colorectal CA, NSTEMI, Hypomagnesemia, DM 2, Venous stasis dermatitis. Patient presents with clinical signs and symptoms consistent with dx, as demonstrated by the following impairment level findings/functional limitations: Impairments in ADL/IADL and leisure activities, decreased functional mobility, decreased functional activity tolerance, decreased LE dressing, requires vc for task performance and min vc throughout ADLs. Patient is assessed as a Moderate 18928 complexity based on the following: History: see above Examination: see functional limitations as noted above Presentation: evolving Decision Making: moderate complexity GOALS Goals x1 week 1. Dressing seated in chair (I) UE and mod (I) LE 2. Bathing seated in chair with max (A) set up (I) 3. Toileting on toilet (I) 4. Eating seated (I) PLAN OF CARE/TREATMENT PLAN: 1x/day, 3-5 days/ week x 1week Initiate Occupational Therapy Services for bathing, dressing, grooming, toileting, eating, transfer training. DISCHARGE RECOMMENDATIONS OT recommends SNF vs. LTC based on his current level of function. TREATMENT TIME/MINUTES/CODES 97018 20 minutes Jessa Marks OTR/[facility] [place], [place]
--- NOTE | 2025-06-27 21:05 | W.EVENT ---
Date of service: 06/27/25 Time of Service: 21:06 Event Note: NS report pt with estela blood in stool. VSS. CBC now and at 0100 06/28/25. Belén neal. Consider GS consult in am Time Spent with Patient Time spent in critical care(minutes): 5 Time Spent Included: Chart review and Other
[2025-06-27 21:28] LABS: HCT 28.1 % (40.0-50.0); HGB 8.9 g/dL (13.5-17.5); MCH 28.3 pg (27.0-33.0); MCV 89 fL (80-95); MPV 10.8 fL (8.0-11.0); Platelet Count 112 10^3/uL (130-400); RBC 3.15 10^6/uL (4.36-5.78); RDW-SD 74.3 fL; WBC 13.07 10^3/uL (4.4-10.8)
[2025-06-27] MEDS: Atorvastatin 40 MG TAB PO (21:34)
[2025-06-27 21:49] LABS: RDW 23.3 % (11.8-14.1)
[2025-06-27 21:51] LABS: MCHC 31.7 % (32.0-36.0)
[2025-06-28] VITALS (7 sets, daily range): BP systolic 138–156; BP diastolic 57–75; PULSE 81–99; RESP 16–20; TEMP 35.9–36.3; O2SAT 93–98
[2025-06-28] MEDS: Normal Saline Flush 10 ML SYR IVP ×2 (00:49→19:42)
[2025-06-28 01:01] LABS: HCT 28.6 % (40.0-50.0); HGB 8.9 g/dL (13.5-17.5); MCH 27.9 pg (27.0-33.0); MCHC 31.1 % (32.0-36.0); MCV 90 fL (80-95); MPV 9.5 fL (8.0-11.0); Platelet Count 108 10^3/uL (130-400); RBC 3.19 10^6/uL (4.36-5.78); RDW 23.2 % (11.8-14.1); RDW-SD 73.6 fL; WBC 14.11 10^3/uL (4.4-10.8)
--- NOTE | 2025-06-28 07:57 | PDOC.CMDIS ---
Date of service: 06/28/25 Time of Service: 07:57 LACE Index Scoring Tool Questions: Length of Stay (in days): 14 or more Was the patient admitted via the E.D.?: Yes Comorbidities: Diabetes w/o Complication, Chronic Pulmonary Disease, Any Tumor and Liver or Renal Disease E.D. Visits: 1 Answers: Total Score: 16 Risk of Readmission: High Risk Care Management Discharge Plan Reason for Hospitalization: Pneumonia, AFib, hypomagnesemia SDOH Health Related Social Needs: Health related social needs inadequate housing Health related social needs details electrical issue with ceiling light in living room, unsure what, but needs help from an electrician deck. Plumbing issue with pump that provides water - has water but very poor water pressure - no leaks that he knows of but too expensive to fix right now without help (pt states $1400). [employer] Service Technician broken, new one purchased but needs to be installed. Health related social needs details: electrical issue with ceiling light in living room, unsure what, but needs help from an electrician deck. Plumbing issue with pump that provides water - has water but very poor water pressure - no leaks that he knows of but too expensive to fix right now without help (pt states $1400). [employer] Service Technician broken, new one purchased but needs to be installed.
[2025-06-28] MEDS: Budesonide/Formoterol 160/4.5 6 GM 60 PUFF INH IH ×2 (08:00→20:17)
[2025-06-28] MEDS: Umeclidinium 7 CAP INHALER 1 CAP IH (08:00)
[2025-06-28 08:40] LABS: HCT 27.9 % (40.0-50.0); HGB 8.7 g/dL (13.5-17.5); MCH 28.0 pg (27.0-33.0); MCHC 31.2 % (32.0-36.0); MCV 90 fL (80-95); MPV 10.3 fL (8.0-11.0); Platelet Count 127 10^3/uL (130-400); RBC 3.11 10^6/uL (4.36-5.78); RDW-SD 74.4 fL; WBC 12.78 10^3/uL (4.4-10.8)
[2025-06-28] MEDS: Fluconazole 150 MG TAB PO (08:48)
[2025-06-28] MEDS: Nystatin POWDER 60 GM JAR TP ×2 (08:48→19:43)
[2025-06-28] MEDS: Ascorbic Acid 500 MG TAB PO ×2 (08:49→19:41)
[2025-06-28] MEDS: Cholecalciferol (Vitamin D3) 1,000 UNIT TAB 5000 UNITS PO (08:49)
[2025-06-28] MEDS: Cyanocobalamin 500 MCG TAB 1000 MCG PO ×2 (08:49→19:45)
[2025-06-28] MEDS: Zinc Sulfate 220 MG TAB PO (08:49)
[2025-06-28] MEDS: valACYclovir 500 MG TAB PO (08:50)
[2025-06-28] MEDS: Citalopram 20 MG TAB 10 MG PO (08:50)
[2025-06-28] MEDS: Allopurinol 100 MG TAB 50 MG PO (08:50)
[2025-06-28] MEDS: Pantoprazole 40 MG TABCR PO (08:50)
[2025-06-28] MEDS: Protein Nutritional Supplement 16 GM 1 OUNCE PACKET PO ×2 (08:51→19:43)
[2025-06-28 09:17] LABS: RDW 23.2 % (11.8-14.1)
--- NOTE | 2025-06-28 10:24 | PT.INNT ---
PT Notes Visit Reasons: Pneumonia; Atrial Fibrillation; Hypomagnesemia Patient approached for PT session this am. RN in room reporting pt is on hold from PT d/t rectal bleeding since 06/27/2025. Will check RN prior to next treatment session.
--- NOTE | 2025-06-28 10:52 | PDOC.CMPRO ---
Date of service: 06/28/25 Time of Service: 14:56 Care Management Progress Note Progress Note Text Progress Note Text: Andres meeting with the Surgeon when CM attempted to meet with him. He has multiple visitors present at this time. Per report, he has a new reported bleeding in his stool so will not be discharged today; CM notified Mami and SNF that he will remain inpatient today. CASH MANAGEMENT SPECIALIST consult will be ordered. Per report, a surgical consultation will be done due to increased blood noted in the stool. Andres will be placed on a clear liquid diet, and the surgical team will reassess the patient in a few days; Refer to the surgical documentation for additional details. Bed offer still availiable at [facility]. CM will continue to follow. Discharge Potential Discharge Needs: PCP F/U Appt Anticipated Barriers to Discharge: None Identified Patient/Family Education Needs: Review discharge instructions, discuss Ask Me Three Transportation: [facility] RCT Transportation: Wheel chair van Plan: Anticipate Andres will be discharged to [facility] for STR , once medically ready. It is recommended that Andres follow up with community providers, oncologist, palliative care and discharge plan of care. Transportation recommendation by PT are [facility] for SNF; Will utilize [facility]. CM will continue to follow. Social Determinants of Health Screening Social Determinants of health last assessed in clinic: 06/28/25 Will the Patient Participate in the Screening?: Yes Do you worry about having a steady place to live?: no Problems where you live: inadequate lighting In the past 12 months, have you had to go without electric, gas, oil or water in your home?: no 1. Within the past 12 months, we worried whether our food would run out before we got money to buy more.: Don't know/refused 2. Within the past 12 months, the food we bought just didn't last and we didn't have money to get more.: Don't know/refused Has lack of transportation kept you from medical appointments or from doing things needed for daily living?: no Has anyone in your life made you feel unsafe or unsupported?: no How hard is it for you to pay for the very basics like food, housing, medical care, and heating? Would you say it is:: Not hard at all Do you want help finding or keeping work or a job?: I do not need or want help If for any reason you need help with day-to-day activities such as bathing, preparing meals, shopping, managing finances, etc., do you get the help you need?: I don?t need any help How often do you feel lonely or isolated from those around you?: Never Do you speak a language other than Spanish at home?: No Comments: electrical issue with ceiling light in living room, unsure what, but needs help from an electrician underground. Plumbing issue with pump that provides water - has water but very poor water pressure - no leaks that he knows of but too expensive to fix right now without help (pt states $1400). Store Administrative Assistant broken, new one purchased but needs to be installed. Health Related Social Needs Health related social needs: inadequate housing (Z59.1) Health related social needs details: electrical issue with ceiling light in living room, unsure what, but needs help from an electrician underground. Plumbing issue with pump that provides water - has water but very poor water pressure - no leaks that he knows of but too expensive to fix right now without help (pt states $1400). Store Administrative Assistant broken, new one purchased but needs to be installed.
[2025-06-28] MEDS: Insulin Aspart 300 UNITS/3 ML PEN SC ×2 (11:55→22:46)
[2025-06-28] MEDS: Ferrous Sulfate 325 MG TAB PO (11:55)
[2025-06-28 12:13] LABS: HCT 27.8 % (40.0-50.0); HGB 8.7 g/dL (13.5-17.5)
--- NOTE | 2025-06-28 12:46 | W.PM.PROGNOT ---
Date of Service Date of service: 06/28/25 Time of Service: 12:46 Assessment and Plan Assessment and plan (1) Acute gastrointestinal bleeding: Status: Acute Assessment and plan: - Patient had mildly bloody bowel movement in the afternoon of 06/27/2025 that was initially thought to have been secondary to potential hemorrhoids - However, patient had additional bloody bowel movement overnight and again on the morning of 06/28/2025 - Hemoglobin on 06/25/2025 was 9.8, when it was checked at midnight 06/28/2025 was 8.9, and 8.7 and around 6 AM on 06/28/2025 - Hemoglobin is appear to level low, but given amount of blood reported by nursing staff, general surgery was consulted, appreciate recommendations which are currently pending - After first bloody bowel movement on 06/27/2025 Plavix was held, and Eliquis was held after bloody bowel movement midnight 06/28/2025 (2) Digoxin toxicity: Status: Acute Assessment and plan: -Symtomatic since 06/19 -Levels were never severely elevated, peak was 4.75 with downtrend, but with low GFR this is not resolving quickly and patient continued to be intermittently bradycardic down to 29bpm -additionally BP was also lower over previous two days despite holding lisinopril -EKG without major changes, has shown some minor ST changes that could be digoxin toxicity, increasingly frequent bradycardic episodes down to 29 bpm on tele -digifab was ordered and was given on 06/24 -patient mental status continues to improve, more awake and eating. HR also improved both while awake and sleeping (3) Abdominal tenderness: Status: Acute Assessment and plan: -likely related to bruising and increased ascites -initially covered for SBP, but ascitic fluid not consistent with SBP given polys only at 50 (4) Toxic metabolic encephalopathy: Status: Acute Assessment and plan: -New since admission. -Initially a/w tremor, which has improved. -could digoxin toxicity -improving as noted above (5) Atrial tachycardia: Status: Acute Assessment and plan: -Triggered by sepsis -Unclear rhythm initially, but was in atrial fibrillation per cardiology with RVR, moved to ICU for rate control -Was on diltiazem drip, [facility] cardiology consulted, advised digoxin load 06/16 -Rate was much better controlled by 06/18. Echocardiogram with normal LVEF without fluid overload -On 06/19 concern that tremor and anorexia and depressed MS as above a/w digoxin toxicity, has been held since then -see above re: dig toxicity (6) Non-ST elevated myocardial infarction (non-STEMI): Status: Resolved Assessment and plan: -Mild elevation to 130 before Troponins trended down c/w type 2 NSTEMI related to atrial fibrillation/rate. -Has not had chest pain, repeat 06/23 trended down further to 51 in normal range. (7) Type 2 diabetes mellitus: Status: Chronic Assessment and plan: -Last known A1C 5.5 in February, 6.9% 06/20 -No longer on insulin at home -Started semaglutide this year, not getting here. -Continue SSI. FS have been higher, if they continue >180, start low dose glargine (8) Acute on chronic kidney failure: Status: Acute Assessment and plan: -CKD stage 3a, baseline creatinine around 1.4 -Challenging fluid balance with poor urine output and concern for heart failure, complicated by cirrhosis. -Diuresis was been paused on admission in favor of fluid resuscitation to increase urine output -Worsening creatinine after resuming furosemide. FENa 06/19 0.1% c/w prerenal. Echo 06/18 not c/w high IVC pressure. Metolazone and furosemide held 06/19. -06/20 gave a gentle liter of LR, some improvement in U/o over 24h but not great. -held lisinopril 06/21 -additional bolus 06/22 then continued maintenance as long as he isn't eating/drinking well. U/o improved 06/22 but minimal so far 06/23 -continue verma until urine output stable in normal range and MS improved, follow u/o -UOP improved, up to 1.1L on 06/26 continue to encourage PO intake and monitor kidney function and urine output (9) Primary malignant colorectal neoplasm: Status: Acute Assessment and plan: -Started folfox in March, oncologist is Dr Luo at [facility] oncology -Next (and last) chemotherapy was scheduled for Jun 21, will have to defer. -previous physician discussed with cancer center. DR. Luo's nurse with reach out with new f/u at [place] (10) Cirrhosis: Assessment and plan: -With portal HTN, mild ascites noted on 06/22 u/s. 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 This complicates his renal failure and overall prognosis. -Worse ascites on CT 06/24, now s/p paracentesis without rapid reaccumualation (11) Decubitus ulcer of coccyx, stage 2: Status: Acute Assessment and plan: -Continue wound care and offloading. Stop lactulose, which makes this more difficult to keep clean. (12) Intertriginous candidiasis: Status: Acute Assessment and plan: -nystatin powder. (13) Moderate malnutrition: Status: Acute Assessment and plan: - As stated in complete detail and nutrition note from 06/25/2025 - Rest per nutrition recommendations will start zinc sulfate, vitamin C, increase dose of vitamin D and encourage patient to consume protein shakes Subjective Subjective Interval history since last seen: Patient appears a little more fatigued today as compared to yesterday but otherwise has no other complaints or concerns at this time Exam Narrative Exam Narrative: chronically ill appearing older gentleman laying in bed in no acute distress, AOx4, heart irregularly irregular, rate between 30-70's, lungs CTAB, abdomen soft, non-tender, mildly distended, bilateral LE edema Objective Last Vital Signs Temp 96.6 F L 06/28/25 11:27 Pulse 81 06/28/25 11:27 Resp 20 06/28/25 11:27 BP 142/57 H 06/28/25 11:27 Pulse Ox 94 06/28/25 11:27 Laboratory Results - last 24 hr 06/27/25 06/28/25 06/28/25 21:20 00:54 08:25 WBC 13.07 H 14.11 H 12.78 H RBC 3.15 L 3.19 L 3.11 L Hgb 8.9 L 8.9 L 8.7 L Hct 28.1 L 28.6 L 27.9 L MCV 89 90 90 MCH 28.3 27.9 28.0 MCHC 31.7 L 31.1 L 31.2 L RDW 23.3 H 23.2 H 23.2 H Plt Count 112 L 108 L 127 L MPV 10.8 9.5 10.3 06/28/25 12:10 WBC RBC Hgb 8.7 L Hct 27.8 L MCV MCH MCHC RDW Plt Count MPV Time Spent with Patient Time Spent with Patient: >50 minutes Time was spent: preparing to see the patient(eg.review tests), obtaining and/or reviewing separately otained hiistory, ordering medications,tests, procedures, referring, communicating with other health career services manager, indepentently interpreting results, counseling the patient and care coordination
--- NOTE | 2025-06-28 14:10 | W.SURGCON ---
Date of service: 06/28/25 Time of Service: 14:10 Assessment and Plan Assessment and plan (1) Acute gastrointestinal bleeding: Status: Acute Assessment and plan: hemodynamically stable without ongoing or massive rectal bleeding. 1.1g hgb drop in 24h, fortunately the bleed appears to have been limited. Differential is bleeding from rectal cancer or radiation proctitis vs other less likely sources. At this time I recommend continuing to hold eliquis and plavix, and observing him. Daily CBC to follow, hopefully bleeding slows on its own without intervention. Complex and high risk patient for procedures, best if he does not require sedation or procedure emergently. After 2-3 days reassess bleeding and whether or not we can restart his anticoagulant. Stroke ppx is important in him but if bleeding continues or recurs we would know he has a contraindication with the rectal cancer. Keep him on clear liquid diet in case major bleeding occurs and emergent endoscopy is needed. Tomorrow if hgb remains minimally changed and bleeding is minimal can consider advancing diet. (2) Primary malignant colorectal neoplasm: Status: Acute (3) Acute on chronic anemia: Status: Acute History of Present Illness History of Present Illness Chief Complaint: rectal bleeding Narrative: 84yo M admitted with digoxin toxocity who was on the mend and preparing to discharge to rehab soon when he began to have rectal bleeding. Notable that he is on eliquis for a fib and plavix for CAD/PAD. He initially had a small amount of blood then last evening/overnight experienced a larger amount of fresh blood per rectum witnessed by nursing. Today his anticoagulant and antiplatelet drugs have been held and he was switched to a clear liquid diet. He has not had more bleeding today. He tells me he sees bleeding from time to time. He has known diagnosis of rectal cancer and completed XRT for it, and is onto the final round of folfox chemotherapy. He follows with Dr Bowers at [facility]. Denies rectal pain. Family is in room and we reviewed his care plan in regard to the bleeding. Pt has cirrhosis with mod portal HTN/ INR today is 1.1. Plt low but over 100. Hgb change from yesterday to today is 9.8-8.7. Family in room and all feel he has improved 80% overall since admission, doing much better. PFSH All Active Problems (Updated 06/28/25 @ 14:26 by Dana Griffin MD) Acute on chronic anemia (Acute) Acute gastrointestinal bleeding (Acute) Moderate malnutrition (Acute) Ascites (Acute) Atrial fibrillation (Chronic) Intertriginous candidiasis (Acute) Decubitus ulcer of coccyx, stage 2 (Acute) Abdominal tenderness (Acute) Digoxin toxicity (Acute) SBP (spontaneous bacterial peritonitis) (Acute) Toxic metabolic encephalopathy (Acute) Tremor (Acute) Acute on chronic kidney failure (Acute) Advance care planning (Acute) Venous stasis dermatitis of both lower extremities (Acute) Immunocompromised state due to drug therapy (Chronic) Atrial tachycardia (Acute) Pneumonia (Acute) Sepsis (Acute) Cystic kidney disease, acquired (Acute) Edema of both lower extremities (Acute) Megaloblastic anemia due to B12 deficiency (Acute) Restrictive lung disease (Acute) Cyst of kidney, acquired (Acute) Primary malignant colorectal neoplasm (Acute) Bradycardia (Acute) Barretts esophagus (Acute) Generalized anxiety disorder (Acute) Neuropathy due to type 2 diabetes mellitus (Acute) Type 2 diabetes mellitus (Chronic) Chronic kidney disease, stage 3 (Acute) Essential hypertension (Acute) Obstructive sleep apnea syndrome (Chronic) Iron deficiency anemia (Acute) Screening for malignant neoplasm of skin (Acute) Abnormal skin growth (Acute) Actinic keratoses (Acute) Seborrheic keratoses (Acute) Disorder of the skin and subcutaneous tissue, unspecified (Acute) Leg wound, right (Acute) Umbilical hernia (Acute) Hyperlipidemia (Chronic) Hypertension (Chronic) Obesity (Chronic) Sleep apnea (Chronic) COPD (chronic obstructive pulmonary disease) (Chronic) GERD (gastroesophageal reflux disease) (Chronic) Gout (Chronic) Stasis dermatitis of both legs (Chronic) Anemia (Acute) Diabetes mellitus type 2 in obese (Acute) Sinus bradycardia (Acute) 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) (Acute) Cellulitis of leg, right (Acute) Chronic venous stasis dermatitis of both lower extremities (Acute) COPD (chronic obstructive pulmonary disease) (Chronic) DVT prophylaxis (Acute) Ulcer of right lower leg (Acute) Venous stasis (Acute) Venous stasis ulcer of ankle limited to breakdown of skin (Acute) Leg length discrepancy (Acute 02/09/18) Primary osteoarthritis of right knee (Acute 11/01/17) Mitral valve regurgitation (Chronic) CVA (cerebral vascular accident) (Chronic) CKD stage 3 due to type 2 diabetes mellitus (Acute) Diabetic neuropathy (Acute) ORVILLE positive (Acute) Onychomycosis (Acute) Medical History (Updated 06/28/25 @ 14:26 by Dana Griffin MD) Gout Severe obesity Tinnitus Hernia of anterior abdominal wall Family history of malignant neoplasm of prostate Proteinuria Idiopathic stabbing headache Antinuclear factor positive History of CVA (cerebrovascular accident) without residual deficits Kidney mass COVID Cutaneous abscess of abdominal wall Slurred speech Weakness Diabetic ulcer of right lower leg associated with diabetes mellitus due to underlying condition, with fat layer exposed Renal insufficiency Cirrhosis Cellulitis Hx TIA/stroke w/o resid SAMMI on CPAP HLD (hyperlipidemia) HTN (hypertension) Venous stasis ulcer right lateral calf Acute kidney injury (nontraumatic) Scalp hematoma Chest wall contusion Syncope Diabetes mellitus Community acquired pneumonia With hypoxia and bronchospasm. Surgical History History of surgery Debridement of right leg wound with Apligraf History of cholecystectomy H/O rectal sphincterotomy History of appendectomy History of total right hip arthroplasty Family History Father , age 63 Heart disease Stroke Hypertension Mother , age 101 No problems noted. Brother Prostate cancer Other Neoplasm Social History Smoking/Tobacco Use Status: Former Tobacco Use Quit Date: 03/06/84 Smoking risk assessment performed?: Yes Alcohol Intake: never Drug use: Never Substance use type: does not use Housing: house Current gender identity: male Do you feel safe at home: Yes Do you feel safe in your relationship?: Yes Exam Narrative Exam Narrative: awake, NAD eomi, MMM normal resp effort neck symmetric anasarca/edema present abdomen is round and nontender periph edema speech clear and coherent Results Last Vital Signs Temp 96.6 F L 06/28/25 11:27 Pulse 81 06/28/25 11:27 Resp 20 06/28/25 11:27 BP 142/57 H 06/28/25 11:27 Pulse Ox 94 06/28/25 11:27 Labs 06/28/25 12:10 06/27/25 07:35 Labs: Laboratory Results - last 24 hr 06/27/25 06/28/25 06/28/25 21:20 00:54 08:25 WBC 13.07 H 14.11 H 12.78 H RBC 3.15 L 3.19 L 3.11 L Hgb 8.9 L 8.9 L 8.7 L Hct 28.1 L 28.6 L 27.9 L MCV 89 90 90 MCH 28.3 27.9 28.0 MCHC 31.7 L 31.1 L 31.2 L RDW 23.3 H 23.2 H 23.2 H Plt Count 112 L 108 L 127 L MPV 10.8 9.5 10.3 06/28/25 12:10 WBC RBC Hgb 8.7 L Hct 27.8 L MCV MCH MCHC RDW Plt Count MPV
[2025-06-28] MEDS: Atorvastatin 40 MG TAB PO (19:41)
[2025-06-29] VITALS (7 sets, daily range): BP systolic 130–158; BP diastolic 58–86; PULSE 79–94; RESP 17–20; TEMP 36.1–36.6; O2SAT 92–98
[2025-06-29 06:34] LABS: HCT 26.2 % (40.0-50.0); HGB 8.1 g/dL (13.5-17.5); MCH 27.9 pg (27.0-33.0); MCHC 30.9 % (32.0-36.0); MCV 90 fL (80-95); MPV 10.1 fL (8.0-11.0); Platelet Count 133 10^3/uL (130-400); RBC 2.90 10^6/uL (4.36-5.78); RDW 23.7 % (11.8-14.1); RDW-SD 75.5 fL; WBC 14.44 10^3/uL (4.4-10.8)
[2025-06-29 06:47] LABS: Anion Gap 8.9 mmol/L (3-11); BUN 70 mg/dL (7-18); CO2 25.1 mmol/L (21.0-32.0); Calcium 8.6 mg/dL (8.5-10.1); Chloride 113 mmol/L (98-107); Estimated GFR 39.26 (mL/min/1.73m2); Glucose 132 mg/dL (74-106); Potassium 4.6 mmol/L (3.5-5.1); Sodium 147 mmol/L (136-145)
[2025-06-29] MEDS: Normal Saline Flush 10 ML SYR IVP ×2 (08:13→19:51)
[2025-06-29] MEDS: Protein Nutritional Supplement 16 GM 1 OUNCE PACKET PO ×3 (08:13→19:42)
[2025-06-29] MEDS: Fluconazole 150 MG TAB PO (08:13)
[2025-06-29] MEDS: Pantoprazole 40 MG TABCR PO (08:14)
[2025-06-29] MEDS: Allopurinol 100 MG TAB 50 MG PO (08:14)
[2025-06-29] MEDS: Cholecalciferol (Vitamin D3) 1,000 UNIT TAB 5000 UNITS PO (08:14)
[2025-06-29] MEDS: Ascorbic Acid 500 MG TAB PO ×2 (08:14→19:42)
[2025-06-29] MEDS: Cyanocobalamin 500 MCG TAB 1000 MCG PO ×2 (08:14→19:42)
[2025-06-29] MEDS: Citalopram 20 MG TAB 10 MG PO (08:15)
[2025-06-29] MEDS: Nystatin POWDER 60 GM JAR TP ×2 (08:17→19:51)
[2025-06-29] MEDS: Umeclidinium 7 CAP INHALER 1 CAP IH (08:20)
[2025-06-29] MEDS: Budesonide/Formoterol 160/4.5 6 GM 60 PUFF INH IH ×2 (08:20→19:45)
[2025-06-29] MEDS: Zinc Sulfate 220 MG TAB PO (09:07)
[2025-06-29] MEDS: valACYclovir 500 MG TAB PO (09:07)
--- NOTE | 2025-06-29 09:48 | PDOC.CMPRO ---
Date of service: 06/29/25 Time of Service: 13:32 Care Management Progress Note Progress Note Text Progress Note Text: Andres was lying in bed and sleeping when CM attempted to meet with him. Per report, he will remain at [facility] for surgical observation throughout the weekend. Per surgical, Andres should be on clear liquid diet; See documentation. CM will continue to follow. Discharge Potential Discharge Needs: Consult Consult Services Needed: Other and PCP F/U Appt Anticipated Barriers to Discharge: Medical Status Patient/Family Education Needs: Review discharge instructions, discuss Ask Me Three Transportation: [facility] RCT Transportation: Wheel chair van Plan: Anticipate Andres will be discharged to [facility] for STR , once medically ready. It is recommended that Andres follow up with community providers, oncologist, palliative care and discharge plan of care. Transportation recommendation by PT are [facility] for SNF; Will utilize [facility]. CM will continue to follow. Social Determinants of Health Screening Social Determinants of health last assessed in clinic: 06/29/25 Will the Patient Participate in the Screening?: Yes Do you worry about having a steady place to live?: no Problems where you live: inadequate lighting In the past 12 months, have you had to go without electric, gas, oil or water in your home?: no 1. Within the past 12 months, we worried whether our food would run out before we got money to buy more.: Never true 2. Within the past 12 months, the food we bought just didn't last and we didn't have money to get more.: Never true Has lack of transportation kept you from medical appointments or from doing things needed for daily living?: no Has anyone in your life made you feel unsafe or unsupported?: no How hard is it for you to pay for the very basics like food, housing, medical care, and heating? Would you say it is:: Not hard at all Do you want help finding or keeping work or a job?: I do not need or want help If for any reason you need help with day-to-day activities such as bathing, preparing meals, shopping, managing finances, etc., do you get the help you need?: I don?t need any help How often do you feel lonely or isolated from those around you?: Never Do you speak a language other than Danish at home?: No Comments: electrical issue with ceiling light in living room, unsure what, but needs help from an magneto electrician. Plumbing issue with pump that provides water - has water but very poor water pressure - no leaks that he knows of but too expensive to fix right now without help (pt states $1400). Wallpaper Installer broken, new one purchased but needs to be installed. Health Related Social Needs Health related social needs: inadequate housing (Z59.1) Health related social needs details: electrical issue with ceiling light in living room, unsure what, but needs help from an magneto electrician. Plumbing issue with pump that provides water - has water but very poor water pressure - no leaks that he knows of but too expensive to fix right now without help (pt states $1400). Wallpaper Installer broken, new one purchased but needs to be installed.
[2025-06-29] MEDS: Insulin Aspart 300 UNITS/3 ML PEN SC ×2 (12:34→21:30)
[2025-06-29] MEDS: Ferrous Sulfate 325 MG TAB PO (12:58)
--- NOTE | 2025-06-29 13:22 | W.PM.PROGNOT ---
Date of Service Date of service: 06/29/25 Time of Service: 13:22 Assessment and Plan Assessment and plan (1) Acute gastrointestinal bleeding: Status: Acute Assessment and plan: Patient is an 84 yo male admitted to the hospitalists service with digoxin toxicity who was found to have rectal bleeding. He is notably on eliquis and plavix which have subsequently been held. He also is currently undergoing treatment for rectal cancer. He remains hemodynamically stable. His hemoglobin did decrease to 8.1 today but he continues to appear stable. Would recommend continuing to hold eliquis and plavix. Ok to advance diet as tolerated. Monitor CBC. No indication for emergent endoscopy at this time but will continue to monitor. (2) Primary malignant colorectal neoplasm: Status: Acute Subjective Subjective Interval history since last seen: He states he is doing well today. He does note one bowel movement but is unsure if there was blood in it or not. He denies lightheadedness or dizziness. He states he has been having ongoing rectal bleeding prior to admission is well. Exam Narrative Exam Narrative: General: Well appearing, no acute distress. Skin: Good turgor, no visible rashes or lesion HEENT: Normocephalic, atraumatic CV: Regular rate Lungs: Bilateral equal chest rise, non-labored breathing Abdomen: Soft, non-tender, non-distended Extremities: Warm, well perfused Neurologic: No focal deficits Psychiatric: Alert and oriented, normal mood and affect Objective Last Vital Signs Temp 36.5 C 06/29/25 11:03 Pulse 79 06/29/25 11:03 Resp 17 06/29/25 11:03 BP 158/68 H 06/29/25 11:03 Pulse Ox 96 06/29/25 11:03 Laboratory Results - last 24 hr 06/29/25 05:41 WBC 14.44 H RBC 2.90 L Hgb 8.1 L Hct 26.2 L MCV 90 MCH 27.9 MCHC 30.9 L RDW 23.7 H Plt Count 133 MPV 10.1 Sodium 147 H Potassium 4.6 Chloride 113 H Carbon Dioxide 25.1 Anion Gap 8.9 BUN 70 H Creatinine 1.7 H Est GFR (CKD-EPI 2020) 39.26 Glucose 132 H Calcium 8.6 Time Spent with Patient Time Spent with Patient: <25 minutes Time was spent: preparing to see the patient(eg.review tests), obtaining and/or reviewing separately otained hiistory, indepentently interpreting results and counseling the patient
--- NOTE | 2025-06-29 14:44 | PTTR_ITS ---
PT Notes Visit Reasons: Pneumonia; Atrial Fibrillation; Hypomagnesemia Date: 06/29/2025 PRECAUTIONS: Fall, Standard, Activity as tolerated. SUBJECTIVE: pt in bed when approached for therapy this morning, pt alert and is able to engage in conversation. agreed to participating with therapy. OBJECTIVE: ? VITALS: monitored by nursing Therapeutic Activities [id number]: Direct one-on-one instruction in dynamic activities to improve functional performance. ?? BED MOBILITY/TRANSFERS? Rolling L/R: min A Supine-sit: ?mod A ? Sit-supine: ?mod A ? Sit-stand: ? mod A steady lift? Stand-sit: ??mod A steady lift ? Bed-Chair:? mod A steady lift? Chair-bed: mod A steady lift Provided skilled cues and instruction on performance and technique throughout. ? ASSESSMENT:?Pt able to transition from fowlers to EOB static sitting on the EOB 5mins unsupported, pt had the urge for bowel movement having to transition back to supine from EOB to allow nursing to assist, pt able to perform fowlers to sitting on the EOB again after lunch, sit to stand transition from EOB to steady mod A, stayed seated in recliner for 2hours before going back to bed via steady lift. pt movement up and down in bed max A, side to side movement min A. PLAN: Continue with balance training, global strengthening and general conditioning for improved safety, mobility and activity tolerance until pt is ready for DC. TREATMENT CODE/TIME: [id number] 20mins (11:22-11:42am) [id number] 25mins (2:05- 2:30pm)
--- NOTE | 2025-06-29 16:36 | PGE_ITS ---
Date of Service Date of service: 06/29/25 Time of Service: 09:00 Assessment and Plan Assessment and plan (1) Acute gastrointestinal bleeding: Status: Acute Assessment and plan: - Patient had mildly bloody bowel movement in the afternoon of 06/27/2025 that was initially thought to have been secondary to potential hemorrhoids - However, patient had additional bloody bowel movement overnight and again on the morning of 06/28/2025 - Hemoglobin on 06/25/2025 was 9.8, when it was checked at midnight 06/28/2025 was 8.9, and 8.7 and around 6 AM on 06/28/2025 - Hemoglobin is appear to level low, but given amount of blood reported by nursing staff, general surgery was consulted, appreciate recommendations which are currently pending - After first bloody bowel movement on 06/27/2025 Plavix was held, and Eliquis was held after bloody bowel movement midnight 06/28/2025 Oct 24: appreciate general surgery recommendations. Continue to hold anticoagulant/antithrombotic. (2) Digoxin toxicity: Status: Acute Assessment and plan: -Symtomatic since 06/19 -Levels were never severely elevated, peak was 4.75 with downtrend, but with low GFR this is not resolving quickly and patient continued to be intermittently bradycardic down to 29bpm -additionally BP was also lower over previous two days despite holding lisinopril -EKG without major changes, has shown some minor ST changes that could be digoxin toxicity, increasingly frequent bradycardic episodes down to 29 bpm on tele -digifab was ordered and was given on 06/24 -patient mental status continues to improve, more awake and eating. HR also improved both while awake and sleeping (3) Abdominal tenderness: Status: Acute Assessment and plan: -likely related to bruising and increased ascites -initially covered for SBP, but ascitic fluid not consistent with SBP given polys only at 50 (4) Toxic metabolic encephalopathy: Status: Acute Assessment and plan: -New since admission. -Initially a/w tremor, which has improved. -could digoxin toxicity -improving as noted above (5) Atrial tachycardia: Status: Acute Assessment and plan: -Triggered by sepsis -Unclear rhythm initially, but was in atrial fibrillation per cardiology with RVR, moved to ICU for rate control -Was on diltiazem drip, [facility] [place] cardiology consulted, advised digoxin load 06/16 -Rate was much better controlled by 06/18. Echocardiogram with normal LVEF without fluid overload -On 06/19 concern that tremor and anorexia and depressed MS as above a/w digoxin toxicity, has been held since then -see above re: dig toxicity (6) Non-ST elevated myocardial infarction (non-STEMI): Status: Resolved Assessment and plan: -Mild elevation to 130 before Troponins trended down c/w type 2 NSTEMI related to atrial fibrillation/rate. -Has not had chest pain, repeat 06/23 trended down further to 51 in normal range. (7) Type 2 diabetes mellitus: Status: Chronic Assessment and plan: -Last known A1C 5.5 in February, 6.9% 06/20 -No longer on insulin at home -Started semaglutide this year, not getting here. -Continue SSI. FS have been higher, if they continue >180, start low dose glargine (8) Acute on chronic kidney failure: Status: Acute Assessment and plan: -CKD stage 3a, baseline creatinine around 1.4 -Challenging fluid balance with poor urine output and concern for heart failure, complicated by cirrhosis. -Diuresis was been paused on admission in favor of fluid resuscitation to increase urine output -Worsening creatinine after resuming furosemide. FENa 06/19 0.1% c/w prerenal. Echo 06/18 not c/w high IVC pressure. Metolazone and furosemide held 06/19. -06/20 gave a gentle liter of LR, some improvement in U/o over 24h but not great. -held lisinopril 06/21 -additional bolus 06/22 then continued maintenance as long as he isn't eating/drinking well. U/o improved 06/22 but minimal so far 06/23 -continue verma until urine output stable in normal range and MS improved, follow u/o -UOP improved, up to 1.1L on 06/26 continue to encourage PO intake and monitor kidney function and urine output (9) Primary malignant colorectal neoplasm: Status: Acute Assessment and plan: -Started folfox in March, oncologist is Dr Luo at [facility] [place] [facility] oncology -Next (and last) chemotherapy was scheduled for Jun 21, will have to defer. -previous physician discussed with cancer center. DR. Luo's nurse with reach out with new f/u at [place] (10) Cirrhosis: Assessment and plan: -With portal HTN, mild ascites noted on 06/22 u/s. 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 This complicates his renal failure and overall prognosis. -Worse ascites on CT 06/24, now s/p paracentesis without rapid reaccumualation (11) Decubitus ulcer of coccyx, stage 2: Status: Acute Assessment and plan: -Continue wound care and offloading. Stop lactulose, which makes this more difficult to keep clean. (12) Intertriginous candidiasis: Status: Acute Assessment and plan: -nystatin powder. (13) Moderate malnutrition: Status: Acute Assessment and plan: - As stated in complete detail and nutrition note from 06/25/2025 - Rest per nutrition recommendations will start zinc sulfate, vitamin C, increase dose of vitamin D and encourage patient to consume protein shakes Subjective Subjective Interval history since last seen: Mr. Iniguez is comfortable in bed. No further episodes of rectal bleeding today. Exam Narrative Exam Narrative: General: This is a pleasant man in no distress HEENT: Normocephalic, atraumatic CV: irregular rate and irregular rhythm, BLE edema Resp: CTAB Abd: soft, NTND MSK: voluntary motion x4 Neuro: awake, alert, no focal deficits Objective Last Vital Signs Temp 36.6 C 06/29/25 15:13 Pulse 83 06/29/25 15:13 Resp 17 06/29/25 15:13 BP 130/60 06/29/25 15:13 Pulse Ox 95 06/29/25 15:13 Laboratory Results - last 24 hr 06/29/25 05:41 WBC 14.44 H RBC 2.90 L Hgb 8.1 L Hct 26.2 L MCV 90 MCH 27.9 MCHC 30.9 L RDW 23.7 H Plt Count 133 MPV 10.1 Sodium 147 H Potassium 4.6 Chloride 113 H Carbon Dioxide 25.1 Anion Gap 8.9 BUN 70 H Creatinine 1.7 H Est GFR (CKD-EPI 2020) 39.26 Glucose 132 H Calcium 8.6 Time Spent with Patient Time Spent with Patient: 25-34 minutes Time was spent: preparing to see the patient(eg.review tests), obtaining and/or reviewing separately otained hiistory, ordering medications,tests, procedures, referring, communicating with other health adult live in caregiver, indepentently interpreting results, counseling the patient and care coordination
[2025-06-29] MEDS: Atorvastatin 40 MG TAB PO (19:41)
[2025-06-30 03:38] VITALS: BP 147/99; PULSE 80; RESP 18; TEMP 36.5; O2SAT 95
[2025-06-30] MEDS: Pantoprazole 40 MG TABCR PO (06:01)
[2025-06-30 07:42] VITALS: BP 130/53; PULSE 70; RESP 17; TEMP 35.5; O2SAT 97
[2025-06-30] MEDS: Budesonide/Formoterol 160/4.5 6 GM 60 PUFF INH IH ×2 (08:13→19:42)
[2025-06-30] MEDS: Umeclidinium 7 CAP INHALER 1 CAP IH (08:13)
[2025-06-30] MEDS: Allopurinol 100 MG TAB 50 MG PO (10:12)
[2025-06-30] MEDS: Citalopram 20 MG TAB 10 MG PO (10:13)
[2025-06-30] MEDS: Ascorbic Acid 500 MG TAB PO ×2 (10:13→19:57)
[2025-06-30] MEDS: Zinc Sulfate 220 MG TAB PO (10:13)
[2025-06-30] MEDS: Ferrous Sulfate 325 MG TAB PO (10:14)
[2025-06-30] MEDS: Cholecalciferol (Vitamin D3) 1,000 UNIT TAB 5000 UNITS PO (10:14)
[2025-06-30] MEDS: Cyanocobalamin 500 MCG TAB 1000 MCG PO ×2 (10:14→19:57)
[2025-06-30] MEDS: valACYclovir 500 MG TAB PO (10:15)
[2025-06-30] MEDS: Protein Nutritional Supplement 16 GM 1 OUNCE PACKET PO ×2 (10:15→20:12)
[2025-06-30] MEDS: Insulin Aspart 300 UNITS/3 ML PEN SC ×4 (10:15→22:33)
[2025-06-30] MEDS: Fluconazole 150 MG TAB PO (10:16)
[2025-06-30] MEDS: Nystatin POWDER 60 GM JAR TP ×3 (10:17→20:12)
[2025-06-30 11:05] VITALS: BP 153/58; PULSE 72; RESP 17; TEMP 35.6; O2SAT 97
[2025-06-30 12:18] LABS: Abs Immature Grans 0.20 10^3/uL (0.0-0.06); HCT 27.5 % (40.0-50.0); HGB 8.5 g/dL (13.5-17.5); Immature Grans % 1.6 %; MCH 28.7 pg (27.0-33.0); MCHC 30.9 % (32.0-36.0); MCV 93 fL (80-95); MPV 9.9 fL (8.0-11.0); Platelet Count 130 10^3/uL (130-400); RBC 2.96 10^6/uL (4.36-5.78); RDW 24.0 % (11.8-14.1); RDW-SD 79.7 fL; WBC 12.76 10^3/uL (4.4-10.8)
[2025-06-30 12:36] LABS: ALT 28 U/L (16-63); AST 53 U/L (15-37); Albumin 1.5 g/dL (3.4-5.0); Alkaline Phosphatase 188 U/L (46-116); Anion Gap 7.7 mmol/L (3-11); BUN 71 mg/dL (7-18); Bilirubin, Total 0.5 mg/dL (0.2-1.0); CO2 25.3 mmol/L (21.0-32.0); Calcium 9.0 mg/dL (8.5-10.1); Chloride 114 mmol/L (98-107); Estimated GFR 36.66 (mL/min/1.73m2); Glucose 170 mg/dL (74-106); Magnesium 2.7 mg/dL (1.8-2.4); Potassium 5.0 mmol/L (3.5-5.1); Sodium 147 mmol/L (136-145); Total Protein 5.8 g/dL (6.4-8.2)
--- NOTE | 2025-06-30 12:37 | PTTR_ITS ---
Date of service: 06/30/25 PT Notes Visit Reasons: Pneumonia; Atrial Fibrillation; Hypomagnesemia Date: 06/30/2025 PRECAUTIONS: Fall, Standard, Activity as tolerated. SUBJECTIVE: pt in bed sleeping when approached for therapy this morning. pt easily woke however continuos cueing needed to stay awake ontil seated at EOB.Pt agreed to participating with therapy. OBJECTIVE: ? VITALS: monitored by nursing Therapeutic Activities 20378: Direct one-on-one instruction in dynamic activities to improve functional performance. ?? BED MOBILITY/TRANSFERS? Rolling L/R: min A Supine-sit: ?mod A ?of 1 pt able to assist with LEs ? Sit-supine: ?mod A x2? Sit-stand: ? mod A x1 CGA of 1 steady lift? ?from elevated bed height ? Stand-sit: ??CGA from steady lift ? Bed-Chair:? 2 assist steady lift? (am)? Provided skilled cues and instruction on performance and technique throughout. ? ASSESSMENT:?Pt able to transition from fowlers to EOB static sitting on the EOB 6 mins unsupported, sit to stand transition from EOB to steadylift mod A with pt pulling up. He was able to sustain coin machine assembler stedy lift without buttock support x 3 mins x 1, 45 sec x2 . Pt limited by abdominal girth and impaired activity tolerance. PLAN: Continue with balance training, global strengthening and general conditioning for improved safety, mobility and activity tolerance until pt is ready for DC. TREATMENT CODE/TIME: 03096/ [id number]
[2025-06-30 12:43] LABS: Anisocytosis 2+; Polychromasia Present
[2025-06-30 12:44] LABS: Poikilocytes 2+
[2025-06-30] MEDS: Tamsulosin 0.4 MG CAPCR 0.8 MG PO (13:25)
[2025-06-30 15:23] VITALS: BP 156/56; PULSE 82; RESP 17; TEMP 35.7; O2SAT 96
--- NOTE | 2025-06-30 16:03 | W.PM.PROGNOT ---
Date of Service Date of service: 06/30/25 Time of Service: 09:00 Assessment and Plan Assessment and plan (1) Acute gastrointestinal bleeding: Status: Acute Assessment and plan: - Patient had mildly bloody bowel movement in the afternoon of 06/27/2025 that was initially thought to have been secondary to potential hemorrhoids - However, patient had additional bloody bowel movement overnight and again on the morning of 06/28/2025 - Hemoglobin on 06/25/2025 was 9.8, when it was checked at midnight 06/28/2025 was 8.9, and 8.7 and around 6 AM on 06/28/2025 - Hemoglobin is appear to level low, but given amount of blood reported by nursing staff, general surgery was consulted, appreciate recommendations which are currently pending - After first bloody bowel movement on 06/27/2025 Plavix was held, and Eliquis was held after bloody bowel movement midnight 06/28/2025 Jun 29: appreciate general surgery recommendations. Continue to hold anticoagulant/antithrombotic. Jun 30: arranging placement (2) Digoxin toxicity: Status: Resolved Assessment and plan: -Symtomatic since 06/19 -Levels were never severely elevated, peak was 4.75 with downtrend, but with low GFR this is not resolving quickly and patient continued to be intermittently bradycardic down to 29bpm -additionally BP was also lower over previous two days despite holding lisinopril -EKG without major changes, has shown some minor ST changes that could be digoxin toxicity, increasingly frequent bradycardic episodes down to 29 bpm on tele -digifab was ordered and was given on 06/24 -patient mental status continues to improve, more awake and eating. HR also improved both while awake and sleeping (3) Abdominal tenderness: Status: Acute Assessment and plan: -likely related to bruising and increased ascites -initially covered for SBP, but ascitic fluid not consistent with SBP given polys only at 50 (4) Toxic metabolic encephalopathy: Status: Acute Assessment and plan: -New since admission. -Initially a/w tremor, which has improved. -could digoxin toxicity -improving as noted above (5) Atrial tachycardia: Status: Acute Assessment and plan: -Triggered by sepsis -Unclear rhythm initially, but was in atrial fibrillation per cardiology with RVR, moved to ICU for rate control -[place] [facility] [place], advised digoxin load 06/16 -Rate was much better controlled by 06/18. Echocardiogram with normal LVEF without fluid overload -On 06/19 concern that tremor and anorexia and depressed MS as above a/w digoxin toxicity, has been held since then -see above re: dig toxicity (6) Non-ST elevated myocardial infarction (non-STEMI): Status: Resolved Assessment and plan: -Mild elevation to 130 before Troponins trended down c/w type 2 NSTEMI related to atrial fibrillation/rate. -Has not had chest pain, repeat 06/23 trended down further to 51 in normal range. (7) Type 2 diabetes mellitus: Status: Chronic Assessment and plan: -Last known A1C 5.5 in February, 6.9% 06/20 -No longer on insulin at home -Started semaglutide this year, not getting here. -Continue SSI. FS have been higher, if they continue >180, start low dose glargine (8) Acute on chronic kidney failure: Status: Acute Assessment and plan: -CKD stage 3a, baseline creatinine around 1.4 -Challenging fluid balance with poor urine output and concern for heart failure, complicated by cirrhosis. -Diuresis was been paused on admission in favor of fluid resuscitation to increase urine output -Worsening creatinine after resuming furosemide. FENa 06/19 0.1% c/w prerenal. Echo 06/18 not c/w high IVC pressure. Metolazone and furosemide held 06/19. -06/20 gave a gentle liter of LR, some improvement in U/o over 24h but not great. -held lisinopril 06/21 -additional bolus 06/22 then continued maintenance as long as he isn't eating/drinking well. U/o improved 06/22 but minimal so far 06/23 -continue verma until urine output stable in normal range and MS improved, follow u/o -UOP improved, up to 1.1L on 06/26 continue to encourage PO intake and monitor kidney function and urine output (9) Primary malignant colorectal neoplasm: Status: Acute Assessment and plan: -Started folfox in March, oncologist is Dr Luo [place] [facility] [facility] -Next (and last) chemotherapy was scheduled for Jun 21, will have to defer. -previous physician discussed with cancer center. DR. Luo's nurse with reach out with new f/u at [place] (10) Cirrhosis: Assessment and plan: -With portal HTN, mild ascites noted on 06/22 u/s. 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 This complicates his renal failure and overall prognosis. -Worse ascites on CT 06/24, now s/p paracentesis without rapid reaccumualation (11) Decubitus ulcer of coccyx, stage 2: Status: Acute Assessment and plan: -Continue wound care and offloading. Stop lactulose, which makes this more difficult to keep clean. (12) Intertriginous candidiasis: Status: Acute Assessment and plan: -nystatin powder. (13) Moderate malnutrition: Status: Acute Assessment and plan: - As stated in complete detail and nutrition note from 06/25/2025 - Rest per nutrition recommendations will start zinc sulfate, vitamin C, increase dose of vitamin D and encourage patient to consume protein shakes Subjective Subjective Interval history since last seen: Mr. Iniguez is comfortable in bed. No further episodes of rectal bleeding for 48 hours. Exam Narrative Exam Narrative: General: This is a pleasant man in no distress HEENT: Normocephalic, atraumatic CV: irregular rate and irregular rhythm, BLE edema Resp: CTAB Abd: soft, NTND MSK: voluntary motion x4 Neuro: awake, alert, no focal deficits Objective Last Vital Signs Temp 35.7 C L 06/30/25 15:23 Pulse 82 06/30/25 15:23 Resp 17 06/30/25 15:23 BP 156/56 H 06/30/25 15:23 Pulse Ox 96 06/30/25 15:23 Laboratory Results - last 24 hr 06/30/25 12:10 WBC 12.76 H RBC 2.96 L Hgb 8.5 L Hct 27.5 L MCV 93 MCH 28.7 MCHC 30.9 L RDW 24.0 H Plt Count 130 MPV 9.9 Immature Gran % 1.6 Neutrophils % 86.1 Lymphocytes % 3.3 Monocytes % 8.3 Eosinophils % 0.5 Basophils % 0.2 Nucleated RBC % 0.0 Absolute Neutrophils 10.99 H Absolute Lymphocytes 0.42 L Absolute Monocytes 1.06 H Absolute Eosinophils 0.06 Absolute Basophils 0.03 RBC Morphology See Below Polychromasia Present Poikilocytosis 2+ Anisocytosis 2+ Sodium 147 H Potassium 5.0 Chloride 114 H Carbon Dioxide 25.3 Anion Gap 7.7 BUN 71 H Creatinine 1.8 H Est GFR (CKD-EPI 2020) 36.66 Glucose 170 H Calcium 9.0 Magnesium 2.7 H Total Bilirubin 0.5 AST 53 H ALT 28 Alkaline Phosphatase 188 H Total Protein 5.8 L Albumin 1.5 L Time Spent with Patient Time Spent with Patient: 25-34 minutes Time was spent: preparing to see the patient(eg.review tests), obtaining and/or reviewing separately otained hiistory, ordering medications,tests, procedures, referring, communicating with other health child care counselor, indepentently interpreting results, counseling the patient and care coordination
[2025-06-30 19:53] VITALS: BP 126/50; PULSE 83; RESP 16; TEMP 36.6; O2SAT 98
[2025-06-30] MEDS: Normal Saline Flush 10 ML SYR IVP (19:57)
[2025-06-30] MEDS: Atorvastatin 40 MG TAB PO (19:57)
[2025-06-30 23:26] VITALS: BP 112/43; PULSE 69; RESP 18; TEMP 36; O2SAT 95
[2025-07-01] VITALS (7 sets, daily range): BP systolic 112–160; BP diastolic 47–132; PULSE 75–84; RESP 16–18; TEMP 35.6–36.3; O2SAT 94–97
[2025-07-01] MEDS: Pantoprazole 40 MG TABCR PO (05:58)
[2025-07-01] MEDS: Budesonide/Formoterol 160/4.5 6 GM 60 PUFF INH IH ×2 (08:03→19:28)
[2025-07-01] MEDS: Umeclidinium 7 CAP INHALER 1 CAP IH (08:03)
[2025-07-01] MEDS: Fluconazole 150 MG TAB PO (09:44)
[2025-07-01] MEDS: Cholecalciferol (Vitamin D3) 1,000 UNIT TAB 5000 UNITS PO (09:44)
[2025-07-01] MEDS: Protein Nutritional Supplement 16 GM 1 OUNCE PACKET PO ×3 (09:44→20:58)
[2025-07-01] MEDS: Zinc Sulfate 220 MG TAB PO (09:45)
[2025-07-01] MEDS: Cyanocobalamin 500 MCG TAB 1000 MCG PO ×2 (09:45→20:59)
[2025-07-01] MEDS: Allopurinol 100 MG TAB 50 MG PO (09:46)
[2025-07-01] MEDS: Ascorbic Acid 500 MG TAB PO ×2 (09:46→20:59)
[2025-07-01] MEDS: Citalopram 20 MG TAB 10 MG PO (09:51)
[2025-07-01] MEDS: Nystatin POWDER 60 GM JAR TP ×3 (09:53→17:12)
[2025-07-01] MEDS: Insulin Aspart 300 UNITS/3 ML PEN SC ×4 (09:55→22:35)
[2025-07-01] MEDS: Normal Saline Flush 10 ML SYR IVP (09:58)
[2025-07-01] MEDS: Ferrous Sulfate 325 MG TAB PO (12:38)
[2025-07-01] MEDS: Acetaminophen 325 MG TAB 650 MG PO (12:38)
--- NOTE | 2025-07-01 13:04 | PTTR_ITS ---
Date of service: 07/01/25 PT Notes Visit Reasons: Pneumonia; Atrial Fibrillation; Hypomagnesemia Date: 07/01/2025 PRECAUTIONS: Fall, Standard, Activity as tolerated. SUBJECTIVE: He states he is doing ok but his bottom hurts. OBJECTIVE: Pt in bed with TV on. He acknowledge this PT as she entered the room.? VITALS: monitored by nursing via telemetry Therapeutic Activities 56974: Direct one-on-one instruction in dynamic activities to improve functional performance. ?? BED MOBILITY/TRANSFERS? Rolling L/R: min A Supine-sit: ?mod A ?of 2 with head of bed elevated pt able to assist with LEs ? Sit-supine: ?mod A x2? Sit-stand: ? mod A x2 steady lift? ?from elevated bed height ? Sit?stand: At FWW Max assist of 2 patient only able to achieve three-quarter stand position therefore steady lift used Stand-sit: ??min A from steady lift ? Bed-Chair:? 2 assist steady lift? (am)? 2nd session: supine therex, heel slides, QS, GS, SAQ with red roll under knees, ankle pumps x 10 reps. Provided skilled cues and instruction on performance and technique throughout. ? ASSESSMENT:?Pt able to transition from fowlers to EOB static sitting on the EOB 6 mins unsupported, sit to stand transition from EOB to stedylift mod A with pt pulling up. He was able to sustain stained glass window designer stedy lift without buttock support x 3 mins x 1, 45 sec x2 . Pt limited by abdominal girth and impaired activity tolerance. Patient noted with dyspnea after performing transfer with steady lift and FWW. In p.m. patient tolerated supine level therapeutic exercises with min assist for heel slides due to abdominal girth. Patient DC recommendation remains for short-term SNF with potential for long-term placement. Patient with dyspnea with heel slides. PLAN: Continue with balance training, global strengthening and general conditioning for improved safety, mobility and activity tolerance until pt is ready for DC. TREATMENT CODE/TIME: 06045/ [id number] 2nd session: [id number]
--- NOTE | 2025-07-01 13:52 | PGE_ITS ---
Date of Service Date of service: 07/01/25 Time of Service: 08:00 Assessment and Plan Assessment and plan (1) Acute gastrointestinal bleeding: Status: Resolved Assessment and plan: - Patient had mildly bloody bowel movement in the afternoon of 06/27/2025 that was initially thought to have been secondary to potential hemorrhoids - However, patient had additional bloody bowel movement overnight and again on the morning of 06/28/2025 - Hemoglobin on 06/25/2025 was 9.8, when it was checked at midnight 06/28/2025 was 8.9, and 8.7 and around 6 AM on 06/28/2025 - Hemoglobin is appear to level low, but given amount of blood reported by nursing staff, general surgery was consulted, appreciate recommendations which are currently pending - After first bloody bowel movement on 06/27/2025 Plavix was held, and Eliquis was held after bloody bowel movement midnight 06/28/2025 Jun 29: appreciate general surgery recommendations. Continue to hold anticoagulant/antithrombotic. Jun 30: arranging placement Jul 01: restarted anticoagulation (2) Digoxin toxicity: Status: Resolved Assessment and plan: -Symtomatic since 06/19 -Levels were never severely elevated, peak was 4.75 with downtrend, but with low GFR this is not resolving quickly and patient continued to be intermittently bradycardic down to 29bpm -additionally BP was also lower over previous two days despite holding lisinopril -EKG without major changes, has shown some minor ST changes that could be digoxin toxicity, increasingly frequent bradycardic episodes down to 29 bpm on tele -digifab was ordered and was given on 06/24 -patient mental status continues to improve, more awake and eating. HR also impr rusty both while awake and sleeping (3) Abdominal tenderness: Status: Acute Assessment and plan: -likely related to bruising and increased ascites -initially covered for SBP, but ascitic fluid not consistent with SBP given polys only at 50 (4) Toxic metabolic encephalopathy: Status: Acute Assessment and plan: -New since admission. -Initially a/w tremor, which has improved. -could digoxin toxicity -improving as noted above (5) Atrial tachycardia: Status: Acute Assessment and plan: -Triggered by sepsis -Unclear rhythm initially, but was in atrial fibrillation per cardiology with RVR, moved to ICU for rate control -Was on diltiazem drip, [facility] [place] cardiology consulted, advised digoxin load 06/16 -Rate was much better controlled by 06/18. Echocardiogram with normal LVEF without fluid overload -On 06/19 concern that tremor and anorexia and depressed MS as above a/w digoxin toxicity, has been held since then -see above re: dig toxicity (6) Non-ST elevated myocardial infarction (non-STEMI): Status: Resolved Assessment and plan: -Mild elevation to 130 before Troponins trended down c/w type 2 NSTEMI related to atrial fibrillation/rate. -Has not had chest pain, repeat 06/23 trended down further to 51 in normal range. (7) Type 2 diabetes mellitus: Status: Chronic Assessment and plan: -Last known A1C 5.5 in February, 6.9% 06/20 -No longer on insulin at home -Started semaglutide this year, not getting here. -Continue SSI. FS have been higher, if they continue >180, start low dose glargine (8) Acute on chronic kidney failure: Status: Acute Assessment and plan: -CKD stage 3a, baseline creatinine around 1.4 -Challenging fluid balance with poor urine output and concern for heart failure, complicated by cirrhosis. -Diuresis was been paused on admission in favor of fluid resuscitation to increase urine output -Worsening creatinine after resuming furosemide. FENa 06/19 0.1% c/w prerenal. Echo 06/18 not c/w high IVC pressure. Metolazone and furosemide held 06/19. -06/20 gave a gentle liter of LR, some improvement in U/o over 24h but not great. -held lisinopril 06/21 -additional bolus 06/22 then continued maintenance as long as he isn't eating/drinking well. U/o improved 06/22 but minimal so far 06/23 -continue verma until urine output stable in normal range and MS improved, follow u/o -UOP improved, up to 1.1L on 06/26 continue to encourage PO intake and monitor kidney function and urine output (9) Primary malignant colorectal neoplasm: Status: Acute Assessment and plan: -Started folfox in March, oncologist is Dr Luo at [facility] [place] [facility] -Next (and last) chemotherapy was scheduled for Jun 21, will have to defer. -previous physician discussed with cancer center. DR. Ripple's nurse with reach out with new f/u at [place] (10) Cirrhosis: Assessment and plan: -With portal HTN, mild ascites noted on 06/22 u/s. 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 This complicates his renal failure and overall prognosis. -Worse ascites on CT 06/24, now s/p paracentesis without rapid reaccumualation (11) Decubitus ulcer of coccyx, stage 2: Status: Acute Assessment and plan: -Continue wound care and offloading. Stop lactulose, which makes this more difficult to keep clean. (12) Intertriginous candidiasis: Status: Acute Assessment and plan: -nystatin powder. (13) Moderate malnutrition: Status: Acute Assessment and plan: - As stated in complete detail and nutrition note from 06/25/2025 - Rest per nutrition recommendations will start zinc sulfate, vitamin C, increase dose of vitamin D and encourage patient to consume protein shakes Subjective Subjective Interval history since last seen: Mr. Iniguez is comfortable in bed. No additional episodes of rectal bleeding. Exam Narrative Exam Narrative: General: This is a pleasant man in no distress HEENT: Normocephalic, atraumatic CV: irregular rate and irregular rhythm, BLE edema Resp: CTAB Abd: soft, NTND MSK: voluntary motion x4 Neuro: awake, alert, no focal deficits Objective Last Vital Signs Temp 35.6 C L 07/01/25 11:34 Pulse 77 07/01/25 11:34 Resp 17 07/01/25 11:34 BP 146/82 H 07/01/25 11:34 Pulse Ox 96 07/01/25 11:34 Time Spent with Patient Time Spent with Patient: 25-34 minutes Time was spent: preparing to see the patient(eg.review tests), obtaining and/or reviewing separately otained hiistory, ordering medications,tests, procedures, referring, communicating with other health career development engineer, indepentently interpreting results, counseling the patient and care coordination
[2025-07-01] MEDS: Atorvastatin 40 MG TAB PO (20:58)
[2025-07-01] MEDS: valACYclovir 500 MG TAB PO (20:59)
[2025-07-02] MEDS: Acetaminophen 325 MG TAB 650 MG PO (01:00)
[2025-07-02 07:48] VITALS: BP 141/70; PULSE 88; RESP 16; TEMP 36.8; O2SAT 96
[2025-07-02] MEDS: Budesonide/Formoterol 160/4.5 6 GM 60 PUFF INH IH (08:00)
[2025-07-02] MEDS: Umeclidinium 7 CAP INHALER 1 CAP IH (08:00)
[2025-07-02 08:02] VITALS: O2SAT 98
[2025-07-02] MEDS: Protein Nutritional Supplement 16 GM 1 OUNCE PACKET PO (08:13)
[2025-07-02] MEDS: Normal Saline Flush 10 ML SYR IVP (08:13)
[2025-07-02] MEDS: Cholecalciferol (Vitamin D3) 1,000 UNIT TAB 5000 UNITS PO (08:13)
[2025-07-02] MEDS: Zinc Sulfate 220 MG TAB PO (08:13)
[2025-07-02] MEDS: valACYclovir 500 MG TAB PO (08:14)
[2025-07-02] MEDS: Clopidogrel 75 MG TAB PO (08:14)
[2025-07-02] MEDS: Allopurinol 100 MG TAB 50 MG PO (08:14)
[2025-07-02] MEDS: Pantoprazole 40 MG TABCR PO (08:14)
[2025-07-02] MEDS: Cyanocobalamin 500 MCG TAB 1000 MCG PO (08:14)
[2025-07-02] MEDS: Ascorbic Acid 500 MG TAB PO (08:14)
[2025-07-02] MEDS: Citalopram 20 MG TAB 10 MG PO (08:14)
[2025-07-02] MEDS: Insulin Aspart 300 UNITS/3 ML PEN SC (08:15)
--- NOTE | 2025-07-02 09:06 | CMDISCH_ITS ---
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 Visits: 1 Answers: Total Score: 16 Risk of Readmission: High Risk Care Management Discharge Plan Reason for Hospitalization: pneumonia, afib, hypomagnesmia Discharge Plan: Andres is being transferred to [facility] today to increase his strength, mobility and duration before returning home. He will f/u with his PCP and his community providers and continue per his plan of care. Andres will transport via [facility] wheelchair van as coordiated by CM. Patient/Family Education Needs: Review of discharge instructions, activity, limitations and discuss Ask me 3. Services Needed at Discharge: [facility] SDOH Health Related Social Needs: Health related social needs inadequate housing Health related social needs details electrical issue w ith ceiling light in living room, unsure what, but needs help from an solar photovoltaic electrician. Plumbing issue with pump that provides water - has water but very poor water pressure - no leaks that he knows of but too expensive to fix right now without help (pt states $1400). Pigment Pusher broken, new one purchased but needs to be installed. Health related social needs details: electrical issue with ceiling light in living room, unsure what, but needs help from an solar photovoltaic electrician. Plumbing issue with pump that provides water - has water but very poor water pressure - no leaks that he knows of but too expensive to fix right now without help (pt states $1400). Pigment Pusher broken, new one purchased but needs to be installed.
--- NOTE | 2025-07-02 09:53 | DSE_ITS ---
Date of service: 07/02/25 Time of Service: 09:00 DS: Diagnosis Discharge Diagnosis (1) Acute gastrointestinal bleeding: Status: Resolved Asessment and Plan: - Patient had mildly bloody bowel movement in the afternoon of 06/27/2025 that was initially thought to have been secondary to potential hemorrhoids - However, patient had additional bloody bowel movement overnight and again on the morning of 06/28/2025 - Hemoglobin on 06/25/2025 was 9.8, when it was checked at midnight 06/28/2025 was 8.9, and 8.7 and around 6 AM on 06/28/2025 - Hemoglobin is appear to level low, but given amount of blood reported by nursing staff, general surgery was consulted, appreciate recommendations which are currently pending - After first bloody bowel movement on 06/27/2025 Plavix was held, and Eliquis was held after bloody bowel movement midnight 06/28/2025 Jun 29: appreciate general surgery recommendations. Continue to hold anticoagulant/antithrombotic. Jun 30: arranging placement Jul 01: restarted anticoagulation (2) Digoxin toxicity: Status: Resolved Asessment and Plan: -Symtomatic since 06/19 -Levels were never severely elevated, peak was 4.75 with downtrend, but with low GFR this is not resolving quickly and patient continued to be intermittently bradycardic down to 29bpm -additionally BP was also lower over previous two days despite holding lisinopril -EKG without major changes, has shown some minor ST changes that could be digoxin toxicity, increasingly frequent bradycardic episodes down to 29 bpm on tele -digifab was ordered and was given on 06/24 -patient mental status continues to improve, more awake and eating. HR also improved both while awake and sleeping - at time of discharge, patient is not requiring rhythm nor rate control and is no longer in atrial fibrillation (3) Abdominal tenderness: Status: Resolved Asessment and Plan: -likely related to bruising and increased ascites -initially covered for SBP, but ascitic fluid not consistent with SBP given p olys only at 50 (4) Toxic metabolic encephalopathy: Status: Resolved Asessment and Plan: -New since admission. -Initially a/w tremor, which has improved. -could digoxin toxicity -improving as noted above (5) Atrial tachycardia: Status: Resolved Asessment and Plan: -Triggered by sepsis -Unclear rhythm initially, but was in atrial fibrillation per cardiology with RVR, moved to ICU for rate control -Was on diltiazem drip, [facility] cardiology consulted, advised digoxin load 06/16 -Rate was much better controlled by 06/18. Echocardiogram with normal LVEF without fluid overload -On 06/19 concern that tremor and anorexia and depressed MS as above a/w digoxin toxicity, has been held since then -see above re: dig toxicity (6) Non-ST elevated myocardial infarction (non-STEMI): Status: Resolved Asessment and Plan: -Mild elevation to 130 before Troponins trended down c/w type 2 NSTEMI related to atrial fibrillation/rate. -Has not had chest pain, repeat 06/23 trended down further to 51 in normal range. (7) Type 2 diabetes mellitus: Status: Chronic Asessment and Plan: -Last known A1C 5.5 in February, 6.9% 06/20 -No longer on insulin at home -Started semaglutide this year, not getting here. - resume home regimen at discharge (8) Acute on chronic kidney failure: Status: Acute Asessment and Plan: -CKD stage 3a, baseline creatinine around 1.4 -Challenging fluid balance with poor urine output and concern for heart failure, complicated by cirrhosis. -Diuresis was been paused on admission in favor of fluid resuscitation to increase urine output -Worsening creatinine after resuming furosemide. FENa 06/19 0.1% c/w prerenal. Echo 06/18 not c/w high IVC pressure. Metolazone and furosemide held 06/19. -06/20 gave a gentle liter of LR, some improvement in U/o over 24h but not great. -held lisinopril 06/21 -additional bolus 06/22 then continued maintenance as long as he isn't eating/drinking well. U/o improved 06/22 but minimal so far 06/23 -continue verma until urine output stable in normal range and MS improved, follow u/o -UOP improved, up to 1.1L on 06/26 continue to encourage PO intake and monitor kidney function and urine output (9) Primary malignant colorectal neoplasm: Status: Acute Asessment and Plan: -Started folfox in March, oncologist is Dr Luo at [facility] -Next (and last) chemotherapy was scheduled for Oct 16, will have to defer. -previous physician discussed with cancer center. DR. Luo's nurse with reach out with new f/u at [facility] (10) Cirrhosis: Asessment and Plan: -With portal HTN, mild ascites noted on 06/22 u/s. 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 This complicates his renal failure and overall prognosis. -Worse ascites on CT 06/24, now s/p paracentesis without rapid reaccumualation (11) Decubitus ulcer of coccyx, stage 2: Status: Acute Asessment and Plan: -Continue wound care and offloading. Stop lactulose, which makes this more difficult to keep clean. (12) Intertriginous candidiasis: Status: Acute Asessment and Plan: -nystatin powder given during hospitalization (13) Moderate malnutrition: Status: Acute Asessment and Plan: - As stated in complete detail and nutrition note from 06/25/2025 - Rest per nutrition recommendations will start zinc sulfate, vitamin C, increase dose of vitamin D and encourage patient to consume protein shakes Discharge Plan Disposition Patient Disposition: [facility] Facility[facility]NF) Condition: Fair Discharge Details Reason For Visit: Pneumonia; Atrial Fibrillation; Hypomagnesemia Admit Date/Time: 06/14/25 05:44 Admit Provider: Anand Jara Attending Provider: Anand Jara Primary Care Provider: [facility] Course Hospital Course: Dionna Iniguez is an 84 year old man who presented June 14 with 3 days of worsening weakness, multiple falls, and shortness of breath. He was reported by EMS to be in atrial fibrillation with HR over 140. Patient has colorectal cancer and was actively being treated with chemotherapy. He was found to be hypertensive with systolic in the 180's, in atrial fibrillation with rate to 150's, with concern for pneumonia in the setting of immune suppression. He was given diltiazem to control heart rate. [facility] cardiology reportedly was consulted and recommended no additional intervention for arrhythmia. He was admitted for sepsis secondary to pneumonia. Soon after admission his heart rate again juan to the 150's and he was moved to the ICU for rate control. [facility] was again consulted and advised initiation of digoxin. Rate was well controlled, however patient developed evidence of digoxin toxicity and had to be treated with antidote. He had worsening abdominal distention and ascites and had paracentesis Oct 18 without evidence of SBP. He has not needed rate control medication since digoxin was stopped. Cardiac monitoring has shown ongoing intermittent PACs and PVCs without atrial fibrillation since this point. He developed rectal bleeding on June 28, and was evaluated by general surgery. Antiplatelet medication was held. There were no further bleeding episodes and clopidogrel was resumed. His home clodinine has been discontinued; no other changes are made to his previous regimen. At this time he is safe to return to his facility. Home Meds and New Rx's Prescriptions: Continued ketoconazole 2 % cream 1 applic topical DAILY Qty: 120 6RF Rx Instructions: Apply to toenails once daily furosemide 20 mg tablet 40 mg PO DAILY ferrous sulfate 325 mg (65 mg iron) tablet 325 mg PO DAILY cholecalciferol (vitamin D3) 50 mcg (2,000 unit) capsule 50 mcg PO DAILY Galzin 50 mg (zinc) capsule 50 mg PO DAILY ondansetron HCl 8 mg tablet 8 mg PO Q8H fluorouracil 5 % cream 1 applic topical BID Diabetic Shoe w Lift Qty: 1 0RF Rx Instructions: Please provide a diabetic shoes. On the left side, please accomodate for left leg length discrepancy, right longer than left. Recommend 1.5cm lift built into the left shoe. Diabetic Shoe w Lift 0RF insulin degludec [Tresiba FlexTouch U-100] 100 unit/mL (3 mL) insulin pen 25 unit subcut DAILY Ozempic 1 mg/dose (4 mg/3 mL) pen injector 0.5 mg subcut QWEEK acetaminophen 325 mg tablet 650 mg PO Q6H PRN albuterol sulfate 2.5 mg /3 mL (0.083 %) solution for nebulization 2.5 mg inhalation Q2H PRN Incruse Ellipta 62.5 mcg/actuation blister with device 1 inh inhalation DAILY valacyclovir 500 mg tablet 500 mg PO TID atorvastatin [Lipitor] 40 MG tablet 40 mg PO DAILY Qty: 0 0RF Rx Instructions: discuss dose with Dr. Slaughter metrachelzone 2.5 mg Tablet 2.5 mg PO .TWICE WEEKLY metformin 500 mg Tablet 1,000 mg PO BID cyanocobalamin (vitamin B-12) [Vitamin B-12] 1,000 mcg Tablet 1,000 mcg PO BID clopidogrel 75 mg Tablet 75 mg PO DAILY allopurinol 100 mg Tablet 100 mg PO DAILY fluticasone propion-salmeterol [Advair Diskus] 500-50 mcg/dose Blister With Device 1 inh INHALATION BID lisinopril 40 mg tablet 40 mg PO DAILY pantoprazole 40 mg tablet,delayed release (DR/EC) 40 mg PO DAILY AM PRN amlodipine 10 mg tablet 10 mg PO DAILY citalopram 10 mg tablet 10 mg PO DAILY Discontinued clonidine HCl 0.3 mg tablet 0.2 mg PO BID Discharge Instructions Activity:: Activity as Tolerated Equipment/Supplies:: No Equipment Needed Diet:: Carb Counting Discharge Orders Discharge Orders: Discharge Order (Routine); Ordered 07/02/25 Ordered By: Joaquín Felix Other Ambulatory Orders: Cardiac Event Recorder (Routine) Timeframe: 2 Days Facility: [facility] - Location: Respiratory Therapy Ordered By: Joaquín Felix DS: Summary Time Spent with Patient providing and/or coordinating discharge services: Greater than 30 minutes Status at Discharge Functional status at discharge: uses cane/walker Overall status at discharge: patient is progressing back to baseline Mental Status: mental status grossly normal Speech and Movement: speech and movement normal Mood: congruent mood Affect: normal affect Quality:SDOH Health Related Social Needs: Health related social needs inadequate housing Health related social needs details electrical issue w ith ceiling light in living room, unsure what, but needs help from an elementary instructional coach. Plumbing issue with pump that provides water - has water but very poor water pressure - no leaks that he knows of but too expensive to fix right now without help (pt states $1400). Bricklayer Tender broken, new one purchased but needs to be installed. Health related social needs details: electrical issue with ceiling light in living room, unsure what, but needs help from an elementary instructional coach. Plumbing issue with pump that provides water - has water but very poor water pressure - no leaks that he knows of but too expensive to fix right now without help (pt states $1400). Bricklayer Tender broken, new one purchased but needs to be installed. Exam Narrative Exam Narrative: General: This is a pleasant man in no distress HEENT: Normocephalic, atraumatic CV: irregular rate and irregular rhythm, BLE edema Resp: CTAB Abd: soft, NTND MSK: voluntary motion x4 Neuro: awake, alert, no focal deficits Psych Mental Status: mental status grossly normal Speech and Movement: speech and movement normal Mood: congruent mood Affect: normal affect DS: Data Vitals/I&O Vitals and I&O: Vital Signs Temperature 36.8 C 07/02/25 07:48 Temperature Source Temporal Artery Scan 07/02/25 07:48 Pulse 88 07/02/25 07:48 Pulse Rhythm Irregular 06/14/25 06:44 Pulse 94 H 06/26/25 13:01 Respiratory Rate 16 07/02/25 07:48 Respiratory Effort Normal 06/23/25 11:35 Respiratory Depth Normal 06/23/25 11:35 Respiratory Pattern Tachypnea 06/23/25 11:35 Blood Pressure 141/70 H 07/02/25 07:48 Blood Pressure Mean 93 07/02/25 07:48 Blood Pressure Position Supine 06/23/25 11:35 Pulse Oximetry 98 07/02/25 08:02 Oxygen Delivery Method Room Air 07/02/25 08:02 Oxygen Flow Rate 0 07/02/25 08:02 Fraction of Inspired Oxygen (FIO2) 21 07/01/25 19:29 Pain Level 0 07/02/25 07:48 Comment eyes closed in be 07/01/25 07:55 Comment BP cuff site changed 06/16/25 22:28 Intake & Output 07/01/25 07/01/25 07/02/25 11:59 23:59 11:59 Intake Total 340 / 830 490 / 830 720 / 720 Output Total 450 / 850 400 / 850 250 / 250 Balance -110 / -20 90 / -20 470 / 470 Intake: IV Oral 340 / 820 480 / 820 720 / 720 Output: Urine 450 / 850 400 / 850 250 / 250 Other: Urine Color Yellow Yellow Urine Appearance Clear Clear Urine Odor Normal None Comment post voided pt voided on the commode, missed the bucket Stool Size Small Large Stool Characteristics Liquid Formed Bloody Brown Data Completed and Pending Pending Labs at Discharge: 06/14/25 06/14/25 06/14/25 01:15 01:29 01:48 WBC 13.01 H RBC 3.75 L Hgb 10.4 L Hct 32.8 L MCV 88 MCH 27.7 MCHC 31.7 L RDW 20.6 H Plt Count 108 L MPV 10.4 Immature Gran % 1.1 Neutrophils % 95.1 Band Neutrophils % Lymphocytes % 1.0 Monocytes % 2.3 Eosinophils % 0.0 Basophils % 0.5 Metamyelocytes % Myelocytes % Nucleated RBC % 0.0 Absolute Neutrophils 12.37 H Absolute Lymphocytes 0.13 L Absolute Monocytes 0.30 Absolute Eosinophils 0.00 Absolute Basophils 0.07 RBC Morphology See Below Polychromasia Poikilocytosis 1+ Anisocytosis 1+ PT 9.9 INR 1.0 APTT 33.2 H D-Dimer Cancelled VBG Lactate Sodium 139 Potassium 3.8 Chloride 102 Carbon Dioxide 23.3 Anion Gap 13.7 H BUN 21 H Creatinine 1.7 H Est GFR (CKD-EPI 2020) 39.26 Glucose 151 H Hemoglobin A1c Calcium 9.1 Magnesium 1.4 L Total Bilirubin 1.3 H Conjugated Bilirubin AST 34 ALT 16 Alkaline Phosphatase 189 H Ammonia Troponin I 86 H* NT-Pro-B Natriuret Pep 2675 H Total Protein 6.5 Albumin 1.9 L Lipase 48 TSH 1.12 Urine Color Urine Clarity Urine pH Ur Specific [place] Urine Protein Urine Ketones Urine Blood Urine Nitrite Urine Bilirubin Urine Urobilinogen Ur Leukocyte Esterase Urine RBC Urine WBC Ur Epithelial Cells Urine Crystals Urine Bacteria Urine Casts Urine Mucus Ur Culture Indicated? Ur Random Creatinine Ur Random Sodium Urine Glucose Fluid Type Fluid Source Fluid Color Fluid Clarity Fluid WBC Fld Polynuclear WBCs % Fluid Mononuclear Cell Fluid Glucose Fluid Total Protein Fluid Albumin Fluid LDH Digoxin COVID-19 Source Nasopharynx SARS-CoV-2 (PCR) Negative Influenza Type A (PCR) Negative Influenza Type B (PCR) Negative RSV (PCR) Negative MRSA (TEM-PCR) Path Cons Comment 06/14/25 06/14/25 06/14/25 02:25 02:57 03:35 WBC RBC Hgb Hct MCV MCH MCHC RDW Plt Count MPV Immature Gran % Neutrophils % Band Neutrophils % Lymphocytes % Monocytes % Eosinophils % Basophils % Metamyelocytes % Myelocytes % Nucleated RBC % Absolute Neutrophils Absolute Lymphocytes Absolute Monocytes Absolute Eosinophils Absolute Basophils RBC Morphology Polychromasia Poikilocytosis Anisocytosis PT INR APTT D-Dimer VBG Lactate 3.8 H* Sodium Potassium Chloride Carbon Dioxide Anion Gap BUN Creatinine Est GFR (CKD-EPI 2020) Glucose Hemoglobin A1c Calcium Magnesium Total Bilirubin Conjugated Bilirubin AST ALT Alkaline Phosphatase Ammonia Troponin I 104 H* NT-Pro-B Natriuret Pep Total Protein Albumin Lipase TSH Urine Color Yellow Urine Clarity Sl Cloudy Urine pH 5.0 Ur Specific [place] 1.020 Urine Protein 30 H Urine Ketones Negative Urine Blood Negative Urine Nitrite Negative Urine Bilirubin Negative Urine Urobilinogen 0.2 Ur Leukocyte Esterase Negative Urine RBC Negative Urine WBC Negative Ur Epithelial Cells Negative Urine Crystals Moderate Amorphous Urine Bacteria Few Urine Casts 0-2 Fine Granular Urine Mucus Trace Ur Culture Indicated? C&S Done As Ordered Ur Random Creatinine Ur Random Sodium Urine Glucose Negative Fluid Type Fluid Source Fluid Color Fluid Clarity Fluid WBC Fld Polynuclear WBCs % Fluid Mononuclear Cell Fluid Glucose Fluid Total Protein Fluid Albumin Fluid LDH Digoxin COVID-19 Source SARS-CoV-2 (PCR) Influenza Type A (PCR) Influenza Type B (PCR) RSV (PCR) MRSA (TEM-PCR) Path Cons Comment 06/14/25 06/14/25 06/15/25 03:38 13:25 05:35 WBC RBC Hgb Hct MCV MCH MCHC RDW Plt Count MPV Immature Gran % Neutrophils % Band Neutrophils % Lymphocytes % Monocytes % Eosinophils % Basophils % Metamyelocytes % Myelocytes % Nucleated RBC % Absolute Neutrophils Absolute Lymphocytes Absolute Monocytes Absolute Eosinophils Absolute Basophils RBC Morphology Polychromasia Poikilocytosis Anisocytosis PT INR APTT D-Dimer VBG Lactate 3.2 H* Sodium Potassium Chloride Carbon Dioxide Anion Gap BUN Creatinine Est GFR (CKD-EPI 2020) Glucose Hemoglobin A1c Calcium Magnesium 2.0 Total Bilirubin Conjugated Bilirubin AST ALT Alkaline Phosphatase Ammonia Troponin I 130 H* 121 H* NT-Pro-B Natriuret Pep Total Protein Albumin Lipase TSH Urine Color Urine Clarity Urine pH Ur Specific [place] Urine Protein Urine Ketones Urine Blood Urine Nitrite Urine Bilirubin Urine Urobilinogen Ur Leukocyte Esterase Urine RBC Urine WBC Ur Epithelial Cells Urine Crystals Urine Bacteria Urine Casts Urine Mucus Ur Culture Indicated? Ur Random Creatinine Ur Random Sodium Urine Glucose Fluid Type Fluid Source Fluid Color Fluid Clarity Fluid WBC Fld Polynuclear WBCs % Fluid Mononuclear Cell Fluid Glucose Fluid Total Protein Fluid Albumin Fluid LDH Digoxin COVID-19 Source SARS-CoV-2 (PCR) Influenza Type A (PCR) Influenza Type B (PCR) RSV (PCR) MRSA (TEM-PCR) Path Cons Comment 06/16/25 06/17/25 06/18/25 05:58 05:25 05:40 WBC 11.68 H 8.25 7.58 RBC 3.85 L 3.64 L 3.60 L Hgb 10.7 L 10.0 L 10.2 L Hct 33.0 L 31.7 L 31.6 L MCV 86 87 88 MCH 27.8 27.5 28.3 MCHC 32.4 31.5 L 32.3 RDW 20.0 H 20.1 H 19.4 H Plt Count 136 133 130 MPV 10.9 10.7 10.7 Immature Gran % 1.9 2.2 Neutrophils % 85.7 80.8 Band Neutrophils % Lymphocytes % 4.0 4.5 Monocytes % 7.6 11.7 Eosinophils % 0.6 0.5 Basophils % 0.2 0.3 Metamyelocytes % Myelocytes % Nucleated RBC % 1.5 H 1.7 H Absolute Neutrophils 7.06 H 6.12 Absolute Lymphocytes 0.33 L 0.34 L Absolute Monocytes 0.63 0.89 H Absolute Eosinophils 0.05 0.04 Absolute Basophils 0.02 0.02 RBC Morphology See Below Polychromasia Poikilocytosis 2+ Anisocytosis 2+ PT INR APTT D-Dimer VBG Lactate 1.6 Sodium 137 135 L 134 L Potassium 3.2 L 3.2 L 3.5 Chloride 103 101 99 Carbon Dioxide 25.1 25.1 23.6 Anion Gap 8.9 8.9 11.4 H BUN 27 H 39 H 50 H Creatinine 1.7 H 2.1 H 2.5 H Est GFR (CKD-EPI 2020) 39.26 30.47 24.72 Glucose 156 H 146 H 111 H Hemoglobin A1c Calcium 8.5 8.5 8.7 Magnesium 1.9 2.0 Total Bilirubin 0.6 0.5 0.6 Conjugated Bilirubin AST 29 33 35 ALT 12 L 17 17 Alkaline Phosphatase 177 H 174 H 164 H Ammonia Troponin I NT-Pro-B Natriuret Pep Total Protein 5.2 L 5.1 L 5.1 L Albumin 1.3 L 1.3 L 1.5 L Lipase TSH Urine Color Urine Clarity Urine pH Ur Specific [place] Urine Protein Urine Ketones Urine Blood Urine Nitrite Urine Bilirubin Urine Urobilinogen Ur Leukocyte Esterase Urine RBC Urine WBC Ur Epithelial Cells Urine Crystals Urine Bacteria Urine Casts Urine Mucus Ur Culture Indicated? Ur Random Creatinine Ur Random Sodium Urine Glucose Fluid Type Fluid Source Fluid Color Fluid Clarity Fluid WBC Fld Polynuclear WBCs % Fluid Mononuclear Cell Fluid Glucose Fluid Total Protein Fluid Albumin Fluid LDH Digoxin 2.39 H* COVID-19 Source SARS-CoV-2 (PCR) Influenza Type A (PCR) Influenza Type B (PCR) RSV (PCR) MRSA (TEM-PCR) Path Cons Comment 06/19/25 06/19/25 06/20/25 05:50 12:30 06:45 WBC 7.15 RBC 3.74 L Hgb 10.5 L Hct 32.6 L MCV 87 MCH 28.1 MCHC 32.2 RDW 19.6 H Plt Count 128 L MPV 10.3 Immature Gran % 3.9 Neutrophils % 79.8 Band Neutrophils % Lymphocytes % 3.9 Monocytes % 11.9 Eosinophils % 0.4 Basophils % 0.1 Metamyelocytes % Myelocytes % Nucleated RBC % 1.8 H Absolute Neutrophils 5.70 Absolute Lymphocytes 0.28 L Absolute Monocytes 0.85 H Absolute Eosinophils 0.03 Absolute Basophils 0.01 RBC Morphology Polychromasia Poikilocytosis Anisocytosis PT INR APTT D-Dimer VBG Lactate Sodium 134 L Potassium 3.8 Chloride 99 Carbon Dioxide 24.9 Anion Gap 10.1 BUN 57 H Creatinine 2.7 H Est GFR (CKD-EPI 2020) 22.53 Glucose 129 H Hemoglobin A1c Calcium 8.6 Magnesium Total Bilirubin 0.6 Conjugated Bilirubin AST 31 ALT 17 Alkaline Phosphatase 173 H Ammonia < 10 L Troponin I NT-Pro-B Natriuret Pep Total Protein 5.1 L Albumin 1.5 L Lipase TSH Urine Color Urine Clarity Urine pH Ur Specific [place] Urine Protein Urine Ketones Urine Blood Urine Nitrite Urine Bilirubin Urine Urobilinogen Ur Leukocyte Esterase Urine RBC Urine WBC Ur Epithelial Cells Urine Crystals Urine Bacteria Urine Casts Urine Mucus Ur Culture Indicated? Ur Random Creatinine 144.50 Ur Random Sodium 8 Urine Glucose Fluid Type Fluid Source Fluid Color Fluid Clarity Fluid WBC Fld Polynuclear WBCs % Fluid Mononuclear Cell Fluid Glucose Fluid Total Protein Fluid Albumin Fluid LDH Digoxin COVID-19 Source SARS-CoV-2 (PCR) Influenza Type A (PCR) Influenza Type B (PCR) RSV (PCR) MRSA (TEM-PCR) Path Cons Comment 06/20/25 06/21/25 06/22/25 06:47 05:32 06:15 WBC 8.29 RBC 3.61 L Hgb 10.2 L Hct 30.9 L MCV 86 MCH 28.3 MCHC 33.0 RDW 20.1 H Plt Count 163 MPV 10.5 Immature Gran % 7.5 Neutrophils % 79.0 Band Neutrophils % 2 Lymphocytes % 3.0 Monocytes % 13.0 Eosinophils % 0.7 Basophils % 0.7 Metamyelocytes % 1 Myelocytes % 2 Nucleated RBC % 2.8 H Absolute Neutrophils 6.71 H Absolute Lymphocytes 0.25 L Absolute Monocytes 1.08 H Absolute Eosinophils 0.06 Absolute Basophils 0.06 RBC Morphology See Below Polychromasia Present Poikilocytosis 2+ Anisocytosis 2+ PT INR APTT D-Dimer VBG Lactate Sodium 133 L 133 L 134 L Potassium 3.9 3.9 3.8 Chloride 99 100 100 Carbon Dioxide 21.6 22.4 22.5 Anion Gap 12.4 H 10.6 11.5 H BUN 64 H 68 H 72 H Creatinine 2.9 H 2.8 H 2.9 H Est GFR (CKD-EPI 2020) 20.68 21.57 20.68 Glucose 127 H 116 H 114 H Hemoglobin A1c 6.9 H Calcium 8.1 L 8.4 L 8.5 Magnesium 2.2 Total Bilirubin Conjugated Bilirubin AST ALT Alkaline Phosphatase Ammonia Troponin I NT-Pro-B Natriuret Pep Total Protein Albumin Lipase TSH Urine Color Urine Clarity Urine pH Ur Specific [place] Urine Protein Urine Ketones Urine Blood Urine Nitrite Urine Bilirubin Urine Urobilinogen Ur Leukocyte Esterase Urine RBC Urine WBC Ur Epithelial Cells Urine Crystals Urine Bacteria Urine Casts Urine Mucus Ur Culture Indicated? Ur Random Creatinine Ur Random Sodium Urine Glucose Fluid Type Fluid Source Fluid Color Fluid Clarity Fluid WBC Fld Polynuclear WBCs % Fluid Mononuclear Cell Fluid Glucose Fluid Total Protein Fluid Albumin Fluid LDH Digoxin 4.75 H* 4.22 H* 4.04 H* COVID-19 Source SARS-CoV-2 (PCR) Influenza Type A (PCR) Influenza Type B (PCR) RSV (PCR) MRSA (TEM-PCR) Path Cons Comment 06/23/25 06/23/25 06/23/25 06:47 11:00 13:05 WBC 12.01 H RBC 3.67 L Hgb 10.2 L Hct 32.2 L MCV 88 MCH 27.8 MCHC 31.7 L RDW 21.2 H Plt Count 168 MPV 10.4 Immature Gran % 3.7 Neutrophils % 80.1 Band Neutrophils % Lymphocytes % 1.7 Monocytes % 13.7 Eosinophils % 0.3 Basophils % 0.5 Metamyelocytes % Myelocytes % Nucleated RBC % 1.6 H Absolute Neutrophils 9.62 H Absolute Lymphocytes 0.20 L Absolute Monocytes 1.65 H Absolute Eosinophils 0.04 Absolute Basophils 0.06 RBC Morphology See Below Polychromasia Poikilocytosis 2+ Anisocytosis 2+ PT 10.9 INR 1.1 APTT D-Dimer VBG Lactate Sodium 132 L Potassium 3.9 Chloride 98 Carbon Dioxide 20.8 L Anion Gap 13.2 H BUN 72 H Creatinine 2.9 H Est GFR (CKD-EPI 2020) 20.68 Glucose 190 H Hemoglobin A1c Calcium 8.3 L Magnesium Total Bilirubin 0.7 Conjugated Bilirubin 0.3 H AST 42 H ALT 19 Alkaline Phosphatase 167 H Ammonia 17 Troponin I 51 NT-Pro-B Natriuret Pep Total Protein 5.5 L Albumin 1.6 L Lipase TSH Urine Color Urine Clarity Urine pH Ur Specific [place] Urine Protein Urine Ketones Urine Blood Urine Nitrite Urine Bilirubin Urine Urobilinogen Ur Leukocyte Esterase Urine RBC Urine WBC Ur Epithelial Cells Urine Crystals Urine Bacteria Urine Casts Urine Mucus Ur Culture Indicated? Ur Random Creatinine Ur Random Sodium Urine Glucose Fluid Type Fluid Source Fluid Color Fluid Clarity Fluid WBC Fld Polynuclear WBCs % Fluid Mononuclear Cell Fluid Glucose Fluid Total Protein Fluid Albumin Fluid LDH Digoxin 3.40 H* COVID-19 Source SARS-CoV-2 (PCR) Influenza Type A (PCR) Influenza Type B (PCR) RSV (PCR) MRSA (TEM-PCR) Negative Path Cons Comment 06/23/25 06/24/25 06/24/25 13:30 05:35 05:45 WBC 12.41 H RBC 3.59 L Hgb 10.0 L Hct 31.3 L MCV 87 MCH 27.9 MCHC 31.9 L RDW 21.2 H Plt Count 152 MPV 10.2 Immature Gran % Neutrophils % Band Neutrophils % Lymphocytes % Monocytes % Eosinophils % Basophils % Metamyelocytes % Myelocytes % Nucleated RBC % Absolute Neutrophils Absolute Lymphocytes Absolute Monocytes Absolute Eosinophils Absolute Basophils RBC Morphology Polychromasia Poikilocytosis Anisocytosis PT INR Cancelled APTT D-Dimer VBG Lactate Sodium 135 L Potassium 4.0 Chloride 102 Carbon Dioxide 24.0 Anion Gap 9.0 BUN 68 H Creatinine 2.5 H Est GFR (CKD-EPI 2020) 24.72 Glucose 187 H Hemoglobin A1c Calcium 8.1 L Magnesium Total Bilirubin 0.7 Conjugated Bilirubin AST 34 ALT 22 Alkaline Phosphatase 162 H Ammonia Troponin I NT-Pro-B Natriuret Pep Total Protein 5.3 L Albumin 1.5 L Lipase TSH Urine Color Urine Clarity Urine pH Ur Specific [place] Urine Protein Urine Ketones Urine Blood Urine Nitrite Urine Bilirubin Urine Urobilinogen Ur Leukocyte Esterase Urine RBC Urine WBC Ur Epithelial Cells Urine Crystals Urine Bacteria Urine Casts Urine Mucus Ur Culture Indicated? Ur Random Creatinine Ur Random Sodium Urine Glucose Fluid Type peritoneal Fluid Source Peritoneal Fluid Color Yellow Fluid Clarity Clear Fluid WBC 202 Fld Polynuclear WBCs % 49 Fluid Mononuclear Cell 51 Fluid Glucose 151 Fluid Total Protein 1.0 Fluid Albumin <1.0 Fluid LDH 75 Digoxin 3.22 H* COVID-19 Source SARS-CoV-2 (PCR) Influenza Type A (PCR) Influenza Type B (PCR) RSV (PCR) MRSA (TEM-PCR) Path Cons Comment SEE COMMENT 06/24/25 06/25/25 06/25/25 09:42 05:48 10:00 WBC 11.77 H RBC 3.40 L Hgb 9.6 L Hct 29.5 L MCV 87 MCH 28.2 MCHC 32.5 RDW 21.9 H Plt Count 142 MPV 10.9 Immature Gran % Neutrophils % Band Neutrophils % Lymphocytes % Monocytes % Eosinophils % Basophils % Metamyelocytes % Myelocytes % Nucleated RBC % Absolute Neutrophils Absolute Lymphocytes Absolute Monocytes Absolute Eosinophils Absolute Basophils RBC Morphology Polychromasia Poikilocytosis Anisocytosis PT 11.4 H 10.9 INR 1.1 1.1 APTT D-Dimer VBG Lactate Sodium 135 L Potassium 4.3 Chloride 103 Carbon Dioxide 23.3 Anion Gap 8.7 BUN 71 H Creatinine 2.5 H Est GFR (CKD-EPI 2020) 24.72 Glucose 182 H Hemoglobin A1c Calcium 8.2 L Magnesium Total Bilirubin 0.6 Conjugated Bilirubin AST 29 ALT 19 Alkaline Phosphatase 154 H Ammonia Troponin I NT-Pro-B Natriuret Pep Total Protein 5.2 L Albumin 1.4 L Lipase TSH Urine Color Urine Clarity Urine pH Ur Specific [place] Urine Protein Urine Ketones Urine Blood Urine Nitrite Urine Bilirubin Urine Urobilinogen Ur Leukocyte Esterase Urine RBC Urine WBC Ur Epithelial Cells Urine Crystals Urine Bacteria Urine Casts Urine Mucus Ur Culture Indicated? Ur Random Creatinine Ur Random Sodium Urine Glucose Fluid Type Fluid Source Fluid Color Fluid Clarity Fluid WBC Fld Polynuclear WBCs % Fluid Mononuclear Cell Fluid Glucose Fluid Total Protein Fluid Albumin Fluid LDH Digoxin 4.21 H* Cancelled COVID-19 Source SARS-CoV-2 (PCR) Influenza Type A (PCR) Influenza Type B (PCR) RSV (PCR) MRSA (TEM-PCR) Path Cons Comment 10/06/27/25 06/27/25 06:00 07:35 21:20 WBC 11.73 H 12.55 H 13.07 H RBC 3.46 L 3.44 L 3.15 L Hgb 9.8 L 9.6 L 8.9 L Hct 30.4 L 30.3 L 28.1 L MCV 88 88 89 MCH 28.3 27.9 28.3 MCHC 32.2 31.7 L 31.7 L RDW 21.9 H 22.6 H 23.3 H Plt Count 121 L 112 L 112 L MPV 10.1 10.2 10.8 Immature Gran % Neutrophils % Band Neutrophils % Lymphocytes % Monocytes % Eosinophils % Basophils % Metamyelocytes % Myelocytes % Nucleated RBC % Absolute Neutrophils Absolute Lymphocytes Absolute Monocytes Absolute Eosinophils Absolute Basophils RBC Morphology Polychromasia Poikilocytosis Anisocytosis PT 10.9 INR 1.1 APTT D-Dimer VBG Lactate Sodium 136 140 Potassium 4.4 4.4 Chloride 106 108 H Carbon Dioxide 21.5 24.1 Anion Gap 8.5 7.9 BUN 72 H 68 H Creatinine 2.4 H 1.9 H Est GFR (CKD-EPI 2020) 25.96 34.35 Glucose 133 H 129 H Hemoglobin A1c Calcium 8.5 8.7 Magnesium Total Bilirubin 0.6 Conjugated Bilirubin AST 28 ALT 17 Alkaline Phosphatase 161 H Ammonia Troponin I NT-Pro-B Natriuret Pep Total Protein 5.3 L Albumin 1.5 L Lipase TSH Urine Color Urine Clarity Urine pH Ur Specific [place] Urine Protein Urine Ketones Urine Blood Urine Nitrite Urine Bilirubin Urine Urobilinogen Ur Leukocyte Esterase Urine RBC Urine WBC Ur Epithelial Cells Urine Crystals Urine Bacteria Urine Casts Urine Mucus Ur Culture Indicated? Ur Random Creatinine Ur Random Sodium Urine Glucose Fluid Type Fluid Source Fluid Color Fluid Clarity Fluid WBC Fld Polynuclear WBCs % Fluid Mononuclear Cell Fluid Glucose Fluid Total Protein Fluid Albumin Fluid LDH Digoxin 3.15 H* COVID-19 Source SARS-CoV-2 (PCR) Influenza Type A (PCR) Influenza Type B (PCR) RSV (PCR) MRSA (TEM-PCR) Path Cons Comment 06/28/25 06/28/25 06/28/25 00:54 08:25 12:10 WBC 14.11 H 12.78 H RBC 3.19 L 3.11 L Hgb 8.9 L 8.7 L 8.7 L Hct 28.6 L 27.9 L 27.8 L MCV 90 90 MCH 27.9 28.0 MCHC 31.1 L 31.2 L RDW 23.2 H 23.2 H Plt Count 108 L 127 L MPV 9.5 10.3 Immature Gran % Neutrophils % Band Neutrophils % Lymphocytes % Monocytes % Eosinophils % Basophils % Metamyelocytes % Myelocytes % Nucleated RBC % Absolute Neutrophils Absolute Lymphocytes Absolute Monocytes Absolute Eosinophils Absolute Basophils RBC Morphology Polychromasia Poikilocytosis Anisocytosis PT INR APTT D-Dimer VBG Lactate Sodium Potassium Chloride Carbon Dioxide Anion Gap BUN Creatinine Est GFR (CKD-EPI 2020) Glucose Hemoglobin A1c Calcium Magnesium Total Bilirubin Conjugated Bilirubin AST ALT Alkaline Phosphatase Ammonia Troponin I NT-Pro-B Natriuret Pep Total Protein Albumin Lipase TSH Urine Color Urine Clarity Urine pH Ur Specific [place] Urine Protein Urine Ketones Urine Blood Urine Nitrite Urine Bilirubin Urine Urobilinogen Ur Leukocyte Esterase Urine RBC Urine WBC Ur Epithelial Cells Urine Crystals Urine Bacteria Urine Casts Urine Mucus Ur Culture Indicated? Ur Random Creatinine Ur Random Sodium Urine Glucose Fluid Type Fluid Source Fluid Color Fluid Clarity Fluid WBC Fld Polynuclear WBCs % Fluid Mononuclear Cell Fluid Glucose Fluid Total Protein Fluid Albumin Fluid LDH Digoxin COVID-19 Source SARS-CoV-2 (PCR) Influenza Type A (PCR) Influenza Type B (PCR) RSV (PCR) MRSA (TEM-PCR) Path Cons Comment 06/29/25 06/30/25 05:41 12:10 WBC 14.44 H 12.76 H RBC 2.90 L 2.96 L Hgb 8.1 L 8.5 L Hct 26.2 L 27.5 L MCV 90 93 MCH 27.9 28.7 MCHC 30.9 L 30.9 L RDW 23.7 H 24.0 H Plt Count 133 130 MPV 10.1 9.9 Immature Gran % 1.6 Neutrophils % 86.1 Band Neutrophils % Lymphocytes % 3.3 Monocytes % 8.3 Eosinophils % 0.5 Basophils % 0.2 Metamyelocytes % Myelocytes % Nucleated RBC % 0.0 Absolute Neutrophils 10.99 H Absolute Lymphocytes 0.42 L Absolute Monocytes 1.06 H Absolute Eosinophils 0.06 Absolute Basophils 0.03 RBC Morphology See Below Polychromasia Present Poikilocytosis 2+ Anisocytosis 2+ PT INR APTT D-Dimer VBG Lactate Sodium 147 H 147 H Potassium 4.6 5.0 Chloride 113 H 114 H Carbon Dioxide 25.1 25.3 Anion Gap 8.9 7.7 BUN 70 H 71 H Creatinine 1.7 H 1.8 H Est GFR (CKD-EPI 2020) 39.26 36.66 Glucose 132 H 170 H Hemoglobin A1c Calcium 8.6 9.0 Magnesium 2.7 H Total Bilirubin 0.5 Conjugated Bilirubin AST 53 H ALT 28 Alkaline Phosphatase 188 H Ammonia Troponin I NT-Pro-B Natriuret Pep Total Protein 5.8 L Albumin 1.5 L Lipase TSH Urine Color Urine Clarity Urine pH Ur Specific [place] Urine Protein Urine Ketones Urine Blood Urine Nitrite Urine Bilirubin Urine Urobilinogen Ur Leukocyte Esterase Urine RBC Urine WBC Ur Epithelial Cells Urine Crystals Urine Bacteria Urine Casts Urine Mucus Ur Culture Indicated? Ur Random Creatinine Ur Random Sodium Urine Glucose Fluid Type Fluid Source Fluid Color Fluid Clarity Fluid WBC Fld Polynuclear WBCs % Fluid Mononuclear Cell Fluid Glucose Fluid Total Protein Fluid Albumin Fluid LDH Digoxin COVID-19 Source SARS-CoV-2 (PCR) Influenza Type A (PCR) Influenza Type B (PCR) RSV (PCR) MRSA (TEM-PCR) Path Cons Comment PFSH All Active Problems (Updated 07/02/25 @ 09:55 by Joaquín Felix MD) Acute on chronic anemia (Acute) Moderate malnutrition (Acute) Ascites (Acute) Atrial fibrillation (Chronic) Intertriginous candidiasis (Acute) Decubitus ulcer of coccyx, stage 2 (Acute) SBP (spontaneous bacterial peritonitis) (Acute) Tremor (Acute) Acute on chronic kidney failure (Acute) Advance care planning (Acute) Venous stasis dermatitis of both lower extremities (Acute) Immunocompromised state due to drug therapy (Chronic) Pneumonia (Acute) Sepsis (Acute) Cystic kidney disease, acquired (Acute) Edema of both lower extremities (Acute) Megaloblastic anemia due to B12 deficiency (Acute) Restrictive lung disease (Acute) Cyst of kidney, acquired (Acute) Primary malignant colorectal neoplasm (Acute) Bradycardia (Acute) Barretts esophagus (Acute) Generalized anxiety disorder (Acute) Neuropathy due to type 2 diabetes mellitus (Acute) Type 2 diabetes mellitus (Chronic) Chronic kidney disease, stage 3 (Acute) Essential hypertension (Acute) Obstructive sleep apnea syndrome (Chronic) Iron deficiency anemia (Acute) Screening for malignant neoplasm of skin (Acute) Abnormal skin growth (Acute) Actinic keratoses (Acute) Seborrheic keratoses (Acute) Disorder of the skin and subcutaneous tissue, unspecified (Acute) Leg wound, right (Acute) Umbilical hernia (Acute) Hyperlipidemia (Chronic) Hypertension (Chronic) Obesity (Chronic) Sleep apnea (Chronic) COPD (chronic obstructive pulmonary disease) (Chronic) GERD (gastroesophageal reflux disease) (Chronic) Gout (Chronic) Stasis dermatitis of both legs (Chronic) Anemia (Acute) Diabetes mellitus type 2 in obese (Acute) Sinus bradycardia (Acute) 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) (Acute) Cellulitis of leg, right (Acute) Chronic venous stasis dermatitis of both lower extremities (Acute) COPD (chronic obstructive pulmonary disease) (Chronic) DVT prophylaxis (Acute) Ulcer of right lower leg (Acute) Venous stasis (Acute) Venous stasis ulcer of ankle limited to breakdown of skin (Acute) Leg length discrepancy (Acute 02/09/18) Primary osteoarthritis of right knee (Acute 11/01/17) Mitral valve regurgitation (Chronic) CVA (cerebral vascular accident) (Chronic) CKD stage 3 due to type 2 diabetes mellitus (Acute) Diabetic neuropathy (Acute) [place] positive (Acute) Onychomycosis (Acute) Medical History (Updated 07/02/25 @ 09:55 by Joaquín Felix MD) Gout Severe obesity Tinnitus Hernia of anterior abdominal wall Family history of malignant neoplasm of prostate Proteinuria Idiopathic stabbing headache Antinuclear factor positive History of CVA (cerebrovascular accident) without residual deficits Kidney mass COVID Cutaneous abscess of abdominal wall Slurred speech Weakness Diabetic ulcer of right lower leg associated with diabetes mellitus due to underlying condition, with fat layer exposed Renal insufficiency Cirrhosis Cellulitis Hx TIA/stroke w/o resid SAMMI on CPAP HLD (hyperlipidemia) HTN (hypertension) Venous stasis ulcer right lateral calf Acute kidney injury (nontraumatic) Scalp hematoma Chest wall contusion Syncope Diabetes mellitus Community acquired pneumonia With hypoxia and bronchospasm. Surgical History History of surgery Debridement of right leg wound with Apligraf History of cholecystectomy H/O rectal sphincterotomy History of appendectomy History of total right hip arthroplasty Family History Father , age 63 Heart disease Stroke Hypertension Mother , age 101 No problems noted. Brother Prostate cancer Other Neoplasm Social History Smoking/Tobacco Use Status: Former Tobacco Use Quit Date: 03/06/84 Smoking risk assessment performed?: Yes Alcohol Intake: never Drug use: Never Substance use type: does not use Housing: house Current gender identity: male Do you feel safe at home: Yes Do you feel safe in your relationship?: Yes Time Spent with Patient Time Spent with Patient: <45 minutes Time was spent: preparing to see the patient(eg.review tests), obtaining and/or reviewing separately otained hiistory, ordering medications,tests, procedures, referring, communicating with other health hiv/aids care nurse, indepentently interpreting results, counseling the patient and care coordination
--- NOTE | 2025-07-02 11:39 | PT.INTREAT ---
PT Notes Visit Reasons: Pneumonia; Atrial Fibrillation; Hypomagnesemia Date: 06/29/2025 PRECAUTIONS: Fall, Standard, Activity as tolerated. SUBJECTIVE: pt sleeping when approached for therapy intervention this morning, pt agreed to participating after he woke up, pt going for shower as per nurse to get ready for DC to SNF. OBJECTIVE: ? VITALS: monitored by nursing Therapeutic Activities 44394: Direct one-on-one instruction in dynamic activities to improve functional performance. ?? BED MOBILITY/TRANSFERS? Rolling L/R: min A Supine-sit: ?mod A ? Sit-supine: ?mod A ? Sit-stand: ? mod A steady lift? Stand-sit: ??mod A steady lift ? Bed-Chair:? mod A steady lift? Chair-bed: mod A steady lift Provided skilled cues and instruction on performance and technique throughout. ? ASSESSMENT:?Trialled pt for Staedy lift shower but pt reported it is too exhausting to be in the steady lift for that amount of time and had to be returned from Steady lift back in to bed, from bed to hover pad to shower bed. pt able to participate for a second session of steady lift transfer to get ready for transport chair. PLAN: Continue with balance training, global strengthening and general conditioning for improved safety, mobility and activity tolerance until pt is ready for DC. TREATMENT CODE/TIME: [id number] 45mins (9:35-10:05 going to shower- 11:15-11:30 going to transport chair)
--- NOTE | 2025-07-02 12:15 | NUR.NOTE ---
Nursing Note: nurse to nurse report given to nursing staff at the rehab.
== END 2025-07-02 11:36 | disposition skilled nursing facility (03) | DRG 871 ==
LOC: ER 05:49 → MS 06:35 → ICU 07:43 → MS 06-17 16:17 → ICU 06-23 11:38 → MS 06-26 13:54
PROVIDERS: Family Medicine; Hospitalist; Admitting Provider Family Medicine; Emergency Provider Student in an Organized Health Care Education/Training Program; PCP Family Medicine; Responsible Provider Family Medicine; Visit Provider Family Medicine
DX: A41.9 Sepsis, unspecified organism (principal); J18.9 Pneumonia, unspecified organism; I47.19 Other supraventricular tachycardia; D84.821 Immunodeficiency due to drugs; E11.22 Type 2 diabetes mellitus with diabetic chronic kidney disease; I87.2 Venous insufficiency (chronic) (peripheral); N17.9 Acute kidney failure, unspecified; G25.1 Drug-induced tremor; G92.8 Other toxic encephalopathy; K74.60 Unspecified cirrhosis of liver; T46.0X1A Poisoning by cardiac-stimulant glycosides and drugs of similar action, accidental (unintentional), initial encounter; L89.152 Pressure ulcer of sacral region, stage 2; B37.2 Candidiasis of skin and nail; J44.0 Chronic obstructive pulmonary disease with (acute) lower respiratory infection; I48.91 Unspecified atrial fibrillation; G47.33 Obstructive sleep apnea (adult) (pediatric); E44.0 Moderate protein-calorie malnutrition; I21.A1 Myocardial infarction type 2; R18.8 Other ascites; Z68.45 Body mass index [BMI] 70 or greater, adult; K62.5 Hemorrhage of anus and rectum; C20 Malignant neoplasm of rectum; K76.6 Portal hypertension; J91.8 Pleural effusion in other conditions classified elsewhere; B37.0 Candidal stomatitis; Z59.12 Inadequate housing utilities; I34.0 Nonrheumatic mitral (valve) insufficiency; E11.40 Type 2 diabetes mellitus with diabetic neuropathy, unspecified; E66.9 Obesity, unspecified; N18.31 Chronic kidney disease, stage 3a; I12.9 Hypertensive chronic kidney disease with stage 1 through stage 4 chronic kidney disease, or unspecified chronic kidney disease; I73.9 Peripheral vascular disease, unspecified; D52.0 Dietary folate deficiency anemia; Z96.641 Presence of right artificial hip joint; K22.70 Barrett's esophagus without dysplasia; N28.1 Cyst of kidney, acquired; F41.1 Generalized anxiety disorder; E78.5 Hyperlipidemia, unspecified; Z86.73 Personal history of transient ischemic attack (TIA), and cerebral infarction without residual deficits; I25.10 Atherosclerotic heart disease of native coronary artery without angina pectoris; Z79.01 Long term (current) use of anticoagulants; Z79.02 Long term (current) use of antithrombotics/antiplatelets; Z79.899 Other long term (current) drug therapy; W19.XXXA Unspecified fall, initial encounter; E83.42 Hypomagnesemia; R00.1 Bradycardia, unspecified; R10.819 Abdominal tenderness, unspecified site; R14.0 Abdominal distension (gaseous)
CPT/HCPCS: 49083; 00123; 36415; 36592; 71275; 73521; 76770; 80048; 80053; 80076; 82042; 83690; 85027; 87040; 87637; 87641; 92526; 92610; 93005; 94640; 96365; 96366; 96367; 96368; 96375; 97110; 97112; 97116; 97162; 97163; 97166; 97530; 99222; 99231; 99232; 99291; J1650; 71045; 74176; 80162; 81003; 81015; 81373; 82140; 82272; 82565; 83036; 83605; 83615; 83735; 83880; 84157; 84300; 84443; 84484; 85014; 85018; 85025; 85379; 85610; 85730; 87070; 87086; 87205; 89051; 93010; 93306; 94664; 94760; 99233; 99238; J0696; J0878; J1160; J1162; J1815; J1938; J2003; J2020; J2185; J2543; J3475; J3480; J3490

== ENCOUNTER 2025-06-21 00:25 | Outpatient (RCR) | payer MEDICARE, SELFPAY ==
[2025-06-07 08:47] LABS: Abs Immature Grans 0.07 10^3/uL (0.0-0.06); HCT 32.8 % (40.0-50.0); HGB 10.3 g/dL (13.5-17.5); Immature Grans % 0.9 %; MCH 27.8 pg (27.0-33.0); MCHC 31.4 % (32.0-36.0); MCV 89 fL (80-95); MPV 10.0 fL (8.0-11.0); Platelet Count 109 10^3/uL (130-400); RBC 3.70 10^6/uL (4.36-5.78); RDW 20.1 % (11.8-14.1); RDW-SD 63.6 fL; WBC 8.09 10^3/uL (4.4-10.8)
[2025-06-07] MEDS: Normal Saline Flush 10 ML SYR IVP (08:54)
[2025-06-07 09:02] LABS: ALT 26 U/L (16-63); AST 32 U/L (15-37); Albumin 2.5 g/dL (3.4-5.0); Alkaline Phosphatase 198 U/L (46-116); Anion Gap 11.0 mmol/L (3-11); BUN 19 mg/dL (7-18); Bilirubin, Total 0.8 mg/dL (0.2-1.0); CO2 26.0 mmol/L (21.0-32.0); Calcium 8.4 mg/dL (8.5-10.1); Chloride 106 mmol/L (98-107); Glucose 180 mg/dL (74-106); Potassium 3.6 mmol/L (3.5-5.1); Sodium 143 mmol/L (136-145); Total Protein 6.2 g/dL (6.4-8.2)
[2025-06-07 09:27] LABS: Anisocytosis 2+; Poikilocytes 2+
[2025-06-07 17:50] LABS: CEA 4.9 ng/mL (See Note)
[2025-06-09] MEDS: Normal Saline Flush 10 ML SYR IVP (11:48)
== END 2025-07-06 23:59 | disposition home or self-care (01) ==
LOC: INF 00:25
PROVIDERS: Nurse Practitioner Family; PCP Family Medicine; Visit Provider Internal Medicine Hematology & Oncology
DX: C20 Malignant neoplasm of rectum (principal); Z45.2 Encounter for adjustment and management of vascular access device
CPT/HCPCS: 36591; 80053; 96523; 82378; 85025

== ENCOUNTER 2025-07-04 05:47 | Inpatient (IN) | payer MEDICARE, SELFPAY ==
[2025-07-04] VITALS (129 sets, daily range): BP systolic 79–172; BP diastolic 26–99; PULSE 38–118; RESP 0–29; TEMP 35.8–36.4; O2SAT 87–100
--- NOTE | 2025-07-04 05:45 | DI.CT_ITS ---
Exam(s) CT CHEST/ABD/PEL WO EXAM: CT CHEST/ABD/PEL WO CLINICAL HISTORY: altered, obtunded. TECHNIQUE: Imaging Protocol: Axial computed tomography images with coronal and sagittal reformatted images were created and reviewed CONTRAST MATERIAL: Intravenous: none Oral: None COMPARISON: CT CT ABDOMEN PELVIS WO from 06/23/2025 FINDINGS: CHEST: LUNGS: Patient is intubated and the distal tip of the endotracheal tube is above the cheo. There is some volume loss in the right hemithorax. There is extensive infiltrate throughout the right lung involving mostly the right lower lobe and upper lobe and there is some associated pleural fluid which appears loculated as well as some posterior located calcified pleural plaque. There is also nodular infiltrate in the anterior segment of the left upper lobe as well as in the basal segments of the left lower lobe. Minimal if any significant pleural fluid on the left side. MEDIASTINUM: No obvious hilar nor mediastinal adenopathy. There is a nodule in the right thyroid lobe incidentally noted. CARDIAC: Heart size upper normal.No pericardial effusion. Diameter of the thoracic aorta is within normal limits. OSSEOUS: No significant osseous lesions.. ABDOMEN: There is an NG tube in the stomach. There is anasarca and there is moderate amount of ascites, predominately right- sided and with average density 55 HU of what appears to be a collection in the right flank extending from the level the liver down into the right-side of the pelvis. This may be layered hematoma given its density. There are no gas bubbles therein. LIVER: There is a cirrhotic appearing liver. No discrete focal hepatic lesions. GALLBLADDER/BILIARY: The gallbladder surgically absent. CBD is not dilated. PANCREAS: No evidence of obvious pancreatic mass nor dilatation of the pancreatic duct. SPLEEN: Spleen is not enlarged. No obvious intrasplenic lesions. ADRENALS: There are no significant adrenal masses. KIDNEYS: There is a solitary nonobstructive 4 millimeter calculus in the right kidney.. No solid renal masses evident in the left kidney. Addition density in the posterior cortex of the right kidney is noted which measures 2.4 x 1.5 centimetres. This is difficult to assess accurately without IV contrast. It probably represents a cyst. There is the punctate nonobstructive calculus in the opposite-left kidney. ABDOMINAL AORTA: Abdominal aorta is not enlarged. LYMPH NODES: There is no retroperitoneal nor para-aortic adenopathy. ABDOMINAL WALL/GI: No evidence of significant anterior abdominal wall nor inguinal hernia. No evidence of bowel obstruction. PELVIS: LYMPH NODES: There is no intrapelvic nor inguinal adenopathy. GI: No evidence of appendicitis.No evidence of sigmoid diverticulitis. URINARY BLADDER: Bladder is collapsed around a Ureña catheter. REPRODUCTIVE: Nonenlarged prostate. OSSEOUS: Right hip prosthesis. Degenerative changes in the left hip. No acute fractures identified. No lytic nor blastic osseous lesions. IMPRESSION: 1. Large infiltrate involving most of the right lung with associated loculated pleural fluid. Cannot exclude lung abscess. There is also infiltrate in left lung although less than is evident on the right side. 2. Endotracheal tube is in satisfactory position. NG tube in satisfactory position. Ureña catheter is in the urinary bladder. 3. Cirrhotic appearing liver with ascites. There is also a layered right-sided collection which may be ascites in patient who has spent significant on a time [id number]. Other consideration is that this is hematoma in the right flank, given its density measurements of 55 HU. 4.. There is a nonobstructive 4-5 mm calculus in the right kidney. Smaller punctate nonobstructive calculus in left kidney. Other findings as above. Report called by myself to ER physician 07/04/2025 at 9 a.m. RADIATION DOSE DELIVERED: 1,853.2mGy.cm Total DLP DATA REPOSITORY: All CT scans at this facility are submitted to the National Radiology Data Registry (NRDR) Dose Index Registry (DIR) with the [employer] (ACR). RADIATION OPTIMIZATION: All CT scans at this facility use at least one of these dose optimization techniques: automated exposure control; mA and/or kV adjustment per patient size (includes targeted exams where dose is matched to clinical indication); or iterative reconstruction.
--- NOTE | 2025-07-04 05:45 | DI.RAD_ITS ---
Exam(s) XR PORTABLE CHEST AP POST LINE EXAM: XR PORTABLE CHEST AP POST LINE CLINICAL HISTORY: intubation. TECHNIQUE: 2D digital imaging was performed. COMPARISON: No exams were available for comparison FINDINGS: Single AP portable view. Insult of the endotracheal tube is above the cheo at the lower clavicular level. Distal tip of the right sided Port-A-Cath is in the upper right atrium. There is an NG tube in place. Its distal tip is beyond the field of view of this study. Mild cardiomegaly evident. Mediastinum unchanged. There is a moderate size right pleural effusion and a smaller left pleural effusion. Mild infiltrates towards the lung bases. IMPRESSION: ET tube in satisfactory position. Moderate size right pleural effusion. Small left pleural effusion. DATA REPOSITORY: RADIATION DOSE DELIVERED:
--- NOTE | 2025-07-04 05:45 | RT.EKG_ITS ---
APPROVED REPORT Exam: Resting ECG Reason for Exam: unresponsive Patient Location: E HR:94 bpm ECG Measurements Heart Rate 94 AXIS MN 168 P 42 QRSd 78 QRS 28 QT 325 T 208 QTc 407 Conclusion Sinus rhythm...normal P axis, V-rate 60- 99 Supraventricular bigeminy...bigeminy string>4 w/ SV complexes Nonspecific repol abnormality, diffuse leads...ST dep, T flat/neg, ant/lat/inf I have reviewed and interpreted ECG and agree with software generated interpretation.
--- NOTE | 2025-07-04 05:45 | DI.CT_ITS ---
Exam(s) CT HEAD WO EXAM: CT HEAD WO CLINICAL HISTORY: altered. TECHNIQUE: Imaging Protocol: Axial computed tomography images with coronal and sagittal reformatted images were created and reviewed COMPARISON: CT CT HEAD - STROKE PROTOCOL from 03/10/2021 FINDINGS: There are no skull fractures. There is no fluid in the visualized paranasal sinuses. There is no evidence of intracranial hemorrhage, mass effect, or shift of midline structures. There are no extra-axial fluid collections. The ventricles are not enlarged or shifted and there is no blood within the ventricular system nor within the basal cisterns. Again noted is a lacunar infarct in the right cerebellar hemisphere which was evident in 2020. There is also well-defined CSF density hypodensity in the region of the left basal ganglia which is unchanged in size and most probably lacunar infarct. There is no evidence of obvious new acute territorial infarct. Symmetrical atrophy is again noted, without significant change from 2020. Midline benign lipomas are again noted and not clinically significant. IMPRESSION: No acute intracranial findings on this noninfused CT scan of the brain. Findings as above in the right cerebellar hemisphere and left basal ganglia which are unchanged from prior CT scan of March 2021. Report called by myself to ER physician 07/04/2025 at 8:34 am. RADIATION DOSE DELIVERED: 945.74mGy.cm Total DLP DATA REPOSITORY: All CT scans at this facility are submitted to the National Radiology Data Registry (NRDR) Dose Index Registry (DIR) with the [employer] (ACR). RADIATION OPTIMIZATION: All CT scans at this facility use at least one of these dose optimization techniques: automated exposure control; mA and/or kV adjustment per patient size (includes targeted exams where dose is matched to clinical indication); or iterative reconstruction.
[2025-07-04] MEDS: Dextrose 50%-Water 25 GM/50 ML SYR (05:51)
[2025-07-04] MEDS: Etomidate 20 MG/10 ML VIAL (06:01)
[2025-07-04] MEDS: PROPOFOL 500 MG/50 ML BTL 15 MG IV_INF (06:02)
[2025-07-04] MEDS: Rocuronium 50 MG/5 ML SYR (06:02)
[2025-07-04] MEDS: PROPOFOL 1,000 MG/100 ML BTL 20 MG (06:05)
[2025-07-04 06:10] LABS: BE (Venous) 0 mmol/L (-2-3); HCO3 (Venous) 26 mmol/L (23-28); O2 Sat (Venous) 74 %; TCO2 (Venous) 24 mmol/L (24-29); pCO2 (Venous) 47 mmHg (41-51); pO2 (Venous) 42 mmHg
--- NOTE | 2025-07-04 06:14 | W.ED.GENAD ---
Discharge Plan Discharge Details Chief Complaint: AMS/LOC Clinical Impression: Hypoglycemia, Metabolic encephalopathy, Acute hypoxemic respiratory failure Primary Care Provider: Soledad Slaughter ED Provider: Abhinav Mata Home Meds and New Rx's Prescriptions: No Action ketoconazole 2 % cream 1 applic topical DAILY Qty: 120 6RF Rx Instructions: Apply to toenails once daily furosemide 20 mg tablet 40 mg PO DAILY ferrous sulfate 325 mg (65 mg iron) tablet 325 mg PO DAILY cholecalciferol (vitamin D3) 50 mcg (2,000 unit) capsule 50 mcg PO DAILY Galzin 50 mg (zinc) capsule 50 mg PO DAILY ondansetron HCl 8 mg tablet 8 mg PO Q8H fluorouracil 5 % cream 1 applic topical BID Diabetic Shoe w Lift Qty: 1 0RF Rx Instructions: Please provide a diabetic shoes. On the left side, please accomodate for left leg length discrepancy, right longer than left. Recommend 1.5cm lift built into the left shoe. Diabetic Shoe w Lift 0RF insulin degludec [Tresiba FlexTouch U-100] 100 unit/mL (3 mL) insulin pen 25 unit subcut DAILY Ozempic 1 mg/dose (4 mg/3 mL) pen injector 0.5 mg subcut QWEEK acetaminophen 325 mg tablet 650 mg PO Q6H PRN albuterol sulfate 2.5 mg /3 mL (0.083 %) solution for nebulization 2.5 mg inhalation Q2H PRN Incruse Ellipta 62.5 mcg/actuation blister with device 1 inh inhalation DAILY valacyclovir 500 mg tablet 500 mg PO TID atorvastatin [Lipitor] 40 MG tablet 40 mg PO DAILY Qty: 0 0RF Rx Instructions: discuss dose with Dr. Slaughter metolazone 2.5 mg Tablet 2.5 mg PO .TWICE WEEKLY metformin 500 mg Tablet 1,000 mg PO BID cyanocobalamin (vitamin B-12) [Vitamin B-12] 1,000 mcg Tablet 1,000 mcg PO BID clopidogrel 75 mg Tablet 75 mg PO DAILY allopurinol 100 mg Tablet 100 mg PO DAILY fluticasone propion-salmeterol [Advair Diskus] 500-50 mcg/dose Blister With Device 1 inh INHALATION BID lisinopril 40 mg tablet 40 mg PO DAILY pantoprazole 40 mg tablet,delayed release (DR/EC) 40 mg PO DAILY AM PRN amlodipine 10 mg tablet 10 mg PO DAILY citalopram 10 mg tablet 10 mg PO DAILY HPI General Date/Time Provider Initiated Documentation: 07/04/25 06:13. HPI Narrative: This is an 84-year-old male with a past medical history of colorectal cancer currently on chemotherapy, chronic kidney disease, COPD, obstructive sleep apnea on nocturnal CPAP, cerebrovascular accident in the past, diabetes mellitus, hypertension, high cholesterol, chronic venous stasis, gout, who was recently admitted on 06/14/2025 and had a prolonged hospital stay here with diagnoses of digoxin toxicity, acute GI bleed (after which point his Eliquis was held), encephalopathy, with subsequent discharge on 07/02/2025 [facility]. [facility] for altered mental status and hypoglycemia. Per the nurse at [facility] the patient was doing well at 4 AM, and sleeping soundly. At 5 AM he was found to have gurgling respirations, blood in his mouth, and was obtunded. He was on his nightly CPAP. Blood sugar was in the 30s. He was given glucagon at [facility]. Oxygen saturations were in the low 80s on his CPAP. EMS was called and he was brought to the ER. Currently the patient is obtunded. He is a full code. No other historical components are known. Related Data Home Medications Medication Instructions Recorded Confirmed atorvastatin 40 mg tablet (Lipitor) 40 mg PO DAILY ##0 03/28/15 06/22/25 allopurinol 100 mg tablet 100 mg PO DAILY 03/13/19 06/22/25 clopidogrel 75 mg tablet 75 mg PO DAILY 03/13/19 06/22/25 cyanocobalamin (vitamin B-12) 1,000 mcg PO BID 03/13/19 06/22/25 1,000 mcg tablet (Vitamin B-12) fluticasone 500 mcg-salmeterol 50 1 inh inhalation BID 03/13/19 06/22/25 mcg/dose blistr powdr for inhalation (Advair Diskus) metformin 500 mg tablet 1,000 mg PO BID 03/13/19 06/22/25 metolazone 2.5 mg tablet 2.5 mg PO .TWICE WEEKLY 03/13/19 06/22/25 lisinopril 40 mg tablet 40 mg PO DAILY 03/10/21 06/22/25 cholecalciferol (vitamin D3) 50 50 mcg PO DAILY 02/13/22 06/22/25 mcg (2,000 unit) capsule ferrous sulfate 325 mg (65 mg 325 mg PO DAILY 02/13/22 06/22/25 iron) tablet furosemide 20 mg tablet 40 mg PO DAILY 02/13/22 06/22/25 zinc acetate 50 mg (zinc) capsule 50 mg PO DAILY 02/13/22 06/22/25 (Galzin) pantoprazole 40 mg tablet,delayed 40 mg PO DAILY AM PRN 10/11/23 06/22/25 release acetaminophen 325 mg tablet 650 mg PO Q6H PRN 11/07/24 06/22/25 albuterol sulfate 2.5 mg/3 mL 2.5 mg inhalation Q2H PRN 11/07/24 06/22/25 (0.083 %) solution for nebulization insulin degludec 100 unit/mL (3 25 unit subcut DAILY 11/07/24 06/22/25 mL) subcutaneous pen (Tresiba FlexTouch U-100 insulin) semaglutide 1 mg/dose (4 mg/3 mL) 0.5 mg subcut QWEEK 11/07/24 06/22/25 subcutaneous pen injector (OzRed Guruic) umeclidinium 62.5 mcg/actuation 1 inh inhalation DAILY 11/07/24 06/22/25 blister powder for inhalation (Incruse Ellipta) valacyclovir 500 mg tablet 500 mg PO TID 11/07/24 06/22/25 ketoconazole 2 % topical cream 1 applic topical DAILY #120 grams 12/28/24 06/22/25 fluorouracil 5 % topical cream 1 applic topical BID 05/18/25 06/22/25 ondansetron HCl 8 mg tablet 8 mg PO Q8H 05/18/25 06/22/25 amlodipine 10 mg tablet 10 mg PO DAILY 06/22/25 06/22/25 citalopram 10 mg tablet 10 mg PO DAILY 06/22/25 06/22/25 Previous Rx's Medication Instructions Recorded atorvastatin 40 mg tablet (Lipitor) 40 mg PO DAILY ##0 03/28/15 ketoconazole 2 % topical cream 1 applic topical DAILY #120 grams 12/28/24 Allergies Allergy/AdvReac Type Severity Reaction Status Date / Time cephalexin AdvReac Intermediate genitourinary Verified 06/14/25 01:35 edema General Stated Complaint: AMS/LOC MAURILIO: 2 Exam Narrative Exam Narrative: 1.Const: Well-nourished, Well-developed, appearing stated age 2.Eyes: PERRL, no conjunctival injection, and symmetrical lids. 3.ENT: Atraumatic external nose and ears. Moist MM. Neck: Symmetric, trachea midline, No thyromegaly. 4.CVS: +S1/S2, Peripheral pulses 2+ and equal in all extremities. Brisk capillary refill in all extremities. 5.RESP: Gurgling sonorous respirations with rhonchi throughout all lung roberts 6.GI: Soft, Nontender/Nondistended, No hepatosplenomegaly. No guarding or rebound. 7.MSK: Normocephalic/Atraumatic, Extremities w/o deformity or ttp No cyanosis or clubbing, Normal movement of all extremities 8.Skin: Warm, Dry. No rashes or lesions. 9.Neuro: GCS is 5 10.Psych: n/a Course Vital Signs Vital signs: Vital Signs Temperature 36.4 C L 07/04/25 05:47 Pulse 97 H 07/04/25 05:47 Respiratory Rate 20 07/04/25 05:47 Blood Pressure 138/99 H 07/04/25 05:47 Pulse Oximetry 91 L 07/04/25 05:47 Temperature 36.4 C L 07/04/25 05:47 Temperature Source Temporal Artery Scan 07/04/25 05:47 Pulse 97 H 07/04/25 05:47 Respiratory Rate 20 07/04/25 05:47 Blood Pressure 138/99 H 07/04/25 05:47 Blood Pressure Position Supine 07/04/25 05:47 Pulse Oximetry 91 L 07/04/25 05:47 Oxygen Delivery Method Non-Rebreather 07/04/25 05:47 Oxygen Flow Rate 0 07/04/25 05:47 Lab/Test Results Lab/Test Results: 07/04/25 06:12 Blood Blood Culture - Pending 07/04/25 06:12 Blood Blood Culture - Pending Procedure Airway Management Date of Procedure: 07/04/25 Time of Procedure: 07:00 Patient Consented: Emergent Case Indication: Respiratory failure and Reduced level of consciousness Provider that performed the procedure: Abhinav Mata Mallampati Class: 4 Sedation administered by provider performing procedure: Yes Sedation Given: Etomidate (20) Route of Administration: IV.. Preparation: cardiac/vascular sonographer applied, pulse oximeter, capnometry used, supplemental O2 applied, reversal agents at bedside, suction/airway equipment at bedside and IV secured. ASA Class: IV.. Induction setup: Pt. evaluated prior to induction, Pt. Ramped, Head of Bed Elevated, Apneic Oxygenation, NRB - High Flow and Rapid Sequence Induction Ultrasound: Not used Airway Type: Intubation Laryngoscopy: Atraumatic Laryngoscopy and Teeth Intact. Grade: Airway Grade: 1. Airway Blades: Glidescope 3. Endotracheal Tube: Oral, Cuffed and 7.5mm. Secured at(cm): 22. Placement Confirmation: Cuff inflated with minimally occlusive pressure, Secured with commercial device, Bilateral breath sounds and ETCO2 waveform present Paralytic(indicate dose given): Rocuronium Post Induction Medication Management(indicate dose given): Managed by Requesting Provider and Propofol (mcg/kg/min) (20) Gastric Tube: Other (Placed by Dr. Mata) Procedure Complications: None Procedure Outcome: Successful Arterial Line Date of Procedure: 07/04/25 Time of Procedure: 07:03 Provider that performed the procedure: Abhinav Mata Indication: BP Monitoring and Hypotension Patient Consented: Emergent Case Standard Time Out Performed: Yes Sterility: Sterile Laterality: Left Insertion Site: Radial Arterial Line Catheter: 20G Arrow Arterial Line Procedure: Vessel accessed with needle, Vessel accessed with catheter over needle, Guidewire placed with ease, Catheter placed without resistance and Guidewire removed Ultrasound: Used/Image Saved Number of Attempts( see previous attempts in note section): 1 Dressing: Tegaderm Applied, Chlorhexidine Dressing, BioPatch Applied and Sutured in Place Procedure Tolerated: No Complications Procedure Outcome: Successful Medical Decision Making This is an 84-year-old male with a past medical history of colorectal cancer currently on chemotherapy, chronic kidney disease, COPD, obstructive sleep apnea on nocturnal CPAP, cerebrovascular accident in the past, diabetes mellitus, hypertension, high cholesterol, chronic venous stasis, gout, who was recently admitted on 06/14/2025 and had a prolonged hospital stay here with diagnoses of digoxin toxicity, acute GI bleed (after which point his Eliquis was held), encephalopathy, with subsequent discharge on 07/02/2025 back to [facility]. He presents today from [facility] for altered mental status and hypoglycemia. Per the nurse at [facility] the patient was doing well at 4 AM, and sleeping soundly. At 5 AM he was found to have gurgling respirations, blood in his mouth, and was obtunded. He was on his nightly CPAP. Blood sugar was in the 30s. He was given glucagon at [facility]. Oxygen saturations were in the low 80s on his CPAP. EMS was called and he was brought to the ER. Currently the patient is obtunded. He is a full code. No other historical components are known. On arrival the patient's GCS is noted to be 5. He has notable sonorous respirations with rhonchi throughout all lung roberts. Oxygen saturation was around 74%. Patient was started on nonrebreather, blood glucose was checked and was found to be in the low 30s. An amp of D50 was immediately administered as soon as IV access was obtained. After the D50 was given, the patient's eyes did spontaneously open, and he was able to make some incomprehensible sounds but still would only flex to pain. GCS was 9. patient had no demonstratable gag reflex whatsoever. And while we were evaluating the patient he also began to have a slow expression of either vomitus or pulmonary aspirate. His lungs are clear which. Regardless he was clearly not able to protect his airway whatsoever. The decision was made to intubate. Patient was intubated without complication. Differential is broad but includes aspiration, metabolic encephalopathy, stroke, or simply the hypoglycemia leading to significant metabolic abnormality. We will get a CT scan of the head chest abdomen pelvis, we will keep the patient sedated, maintain saturations greater than 95%, evaluate for source of etiology, monitor closely and reassess. 7:04 AM Airway was secured, art line was placed. Laboratory workup is returned and shows elevated white count, hemoglobin is improving. VBG is normal, lactate normal, electrolytes stable, creatinine stable, glucose from the blood that was drawn when he arrived was 17, glucose after amp of D50 was given was recorded as high. Still performing q. hourly Accu-Cheks. Ammonia level normal. proBNP was 1300 which is actually lower than normal for the patient, initial troponin normal, thyroid function normal, protein pending procalcitonin. Urinalysis unremarkable. Digoxin level low to therapeutic. Pending CT imaging. Patient will be signed out to my colleague Dr. Villarreal for follow-up on imaging and final admission disposition. I will contact Dr. Galindo to give a heads up. Quality:SDOH Health Related Social Needs: Health related social needs inadequate housing Health related social needs details electrical issue with ceiling light in living room, unsure what, but needs help from an solar photovoltaic electrician. Plumbing issue with pump that provides water - has water but very poor water pressure - no leaks that he knows of but too expensive to fix right now without help (pt states $1400). Marketing Finance Manager broken, new one purchased but needs to be installed. Critical Care Time Critical Care Time Critical Care Time: Yes Total Critical Care Time: 45 Attestation: Upon my evaluation, this patient had a high probability of imminent or life-threatening deterioration, which required my direct attention, intervention, and personal management. I have personally provided 45 minutes of critical care time exclusive of time spent on separately billable procedures. Time includes review of laboratory data, radiology results, discussion with consultants, and monitoring for potential decompensation. Interventions were performed as documented. [facility] All Active Problems (Updated 07/04/25 @ 07:06 by bAhinav Mata DO) Acute hypoxemic respiratory failure (Acute) Metabolic encephalopathy (Acute) Hypoglycemia (Acute) Acute on chronic anemia (Acute) Moderate malnutrition (Acute) Ascites (Acute) Tremor (Acute) Venous stasis dermatitis of both lower extremities (Acute) 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, acquired (Acute) Edema of both lower extremities (Acute) Megaloblastic anemia due to B12 deficiency (Acute) Restrictive lung disease (Acute) Cyst of kidney, acquired (Acute) Primary malignant colorectal neoplasm (Acute) Bradycardia (Acute) Barretts esophagus (Acute) Generalized anxiety disorder (Acute) Neuropathy due to type 2 diabetes mellitus (Acute) Type 2 diabetes mellitus (Chronic) Essential hypertension (Acute) Obstructive sleep apnea syndrome (Chronic) Iron deficiency anemia (Acute) Screening for malignant neoplasm of skin (Acute) Abnormal skin growth (Acute) Actinic keratoses (Acute) Seborrheic keratoses (Acute) Disorder of the skin and subcutaneous tissue, unspecified (Acute) Leg wound, right (Acute) Umbilical hernia (Acute) Hyperlipidemia (Chronic) Hypertension (Chronic) Obesity (Chronic) COPD (chronic obstructive pulmonary disease) (Chronic) GERD (gastroesophageal reflux disease) (Chronic) Gout (Chronic) Stasis dermatitis of both legs (Chronic) Anemia (Acute) Diabetes mellitus type 2 in obese (Acute) Sinus bradycardia (Acute) 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) (Acute) Cellulitis of leg, right (Acute) Chronic venous stasis dermatitis of both lower extremities (Acute) COPD (chronic obstructive pulmonary disease) (Chronic) DVT prophylaxis (Acute) Ulcer of right lower leg (Acute) Venous stasis (Acute) Venous stasis ulcer of ankle limited to breakdown of skin (Acute) Leg length discrepancy (Acute 02/09/18) Primary osteoarthritis of right knee (Acute 11/01/17) Mitral valve regurgitation (Chronic) CVA (cerebral vascular accident) (Chronic) CKD stage 3 due to type 2 diabetes mellitus (Acute) Diabetic neuropathy (Acute) Onychomycosis (Acute) Medical History (Updated 07/04/25 @ 07:06 by Abhinav Mata DO) Atrial fibrillation Intertriginous candidiasis Decubitus ulcer of coccyx, stage 2 Advance care planning [place] positive Gout Severe obesity Tinnitus Hernia of anterior abdominal wall Family history of malignant neoplasm of prostate Proteinuria Idiopathic stabbing headache Antinuclear factor positive History of CVA (cerebrovascular accident) without residual deficits Kidney mass COVID Cutaneous abscess of abdominal wall Slurred speech Weakness Diabetic ulcer of right lower leg associated with diabetes mellitus due to underlying condition, with fat layer exposed Renal insufficiency Cirrhosis Cellulitis Hx TIA/stroke w/o resid SAMMI on CPAP HLD (hyperlipidemia) HTN (hypertension) Venous stasis ulcer right lateral calf Acute kidney injury (nontraumatic) Scalp hematoma Chest wall contusion Syncope Diabetes mellitus Community acquired pneumonia With hypoxia and bronchospasm. Surgical History History of surgery Debridement of right leg wound with Apligraf History of cholecystectomy H/O rectal sphincterotomy History of appendectomy History of total right hip arthroplasty Family History Father , age 63 Heart disease Stroke Hypertension Mother , age 101 No problems noted. Brother Prostate cancer Other Neoplasm Social History Smoking/Tobacco Use Status: Former Tobacco Use Quit Date: 03/06/84 Smoking risk assessment performed?: Yes Alcohol Intake: never Drug use: Never Substance use type: does not use Housing: house Current gender identity: male Do you feel safe at home: Yes Do you feel safe in your relationship?: Yes
--- NOTE | 2025-07-04 06:15 | NUR.NOTE ---
Nursing Note: 0547 Patient arrives via EMS from [facility]. O2 78% on 6L. breathing on his own but unresponsive. BGL 32 by EMS. 0548 bilateral IV access established. 18G R AC, 20G L AC. labs obtained. 0551 pushed 50mL glucagon 0555 decision made to intubate 0601 pushed 20mg etomidate 0602 pushed 100mg rocuronium 0602 intubated with 7.5 ET tube, 22 @ teeth 0605 propofol started at 20mcg/kg 0607 OG tube placed, 60 @ lips
[2025-07-04 06:17] LABS: Abs Immature Grans 0.10 10^3/uL (0.0-0.06); HCT 29.5 % (40.0-50.0); HGB 9.0 g/dL (13.5-17.5); Immature Grans % 0.9 %; MCH 28.5 pg (27.0-33.0); MCHC 30.5 % (32.0-36.0); MCV 93 fL (80-95); MPV 10.3 fL (8.0-11.0); Platelet Count 165 10^3/uL (130-400); RBC 3.16 10^6/uL (4.36-5.78); RDW 23.4 % (11.8-14.1); RDW-SD 79.2 fL; WBC 11.54 10^3/uL (4.4-10.8)
--- NOTE | 2025-07-04 06:21 | DI.VRAD_ITS ---
PROCEDURE INFORMATION: Exam: XR Chest Exam date and time: 07/04/2025 6:10 AM Age: 84 years old Clinical indication: Device placement; Other: S/P intubation, ng tube TECHNIQUE: Imaging protocol: Radiologic exam of the chest. Views: 1 view. COMPARISON: CR XR PORTABLE CHEST AP 06/22/2025 10:20 AM FINDINGS: Tubes, catheters and devices: Endotracheal tube terminates approximately 3.5 cm above the cheo. Right central venous catheter again identified. Nasogastric tube extends below the diaphragm. Distal tip not imaged. Lungs: Diffusely increased pulmonary markings, without significant change. Ill-defined bibasilar opacities, without significant change. Pleural spaces: Bilateral pleural effusions. Heart/Mediastinum: No cardiomegaly. Bones/joints: No acute abnormality. IMPRESSION: 1. Tubes and lines as above. 2. No other significant interval change. Dictated and Authenticated by: Jocelyne Herrera MD. Orderin Esperanza La MD
[2025-07-04 06:26] LABS: Glucose Negative (Negative)
[2025-07-04 06:32] LABS: Ammonia 10 umol/L (11-32); INR 0.9 (0.9-1.1); PTT Activated 30.3 sec (20.6-30.2); Prothrombin Time 9.3 sec (9.1-11.1)
[2025-07-04 06:35] LABS: C & S Indicated? No; WBC 0-2 HPF (0-5)
--- NOTE | 2025-07-04 06:36 | RESPIRATORY ---
Pt came in on 6l nc, sats of 78 and unresponsive. NRB placed on pt w/improved sats to 92. Pt became slightly more awake but still minimal responsiveness and showed no gag. Pt intubated w/out complication for airway protection.
[2025-07-04 06:38] LABS: Anisocytosis 2+; Hypochromasia 2+
[2025-07-04 06:39] LABS: Poikilocytes 2+
[2025-07-04 06:43] LABS: ALT 27 U/L (16-63); AST 37 U/L (15-37); Albumin 1.6 g/dL (3.4-5.0); Alkaline Phosphatase 192 U/L (46-116); Anion Gap 6.8 mmol/L (3-11); BUN 57 mg/dL (7-18); Bilirubin, Total 0.5 mg/dL (0.2-1.0); CO2 27.2 mmol/L (21.0-32.0); Calcium 8.9 mg/dL (8.5-10.1); Chloride 111 mmol/L (98-107); Potassium 4.9 mmol/L (3.5-5.1); Sodium 145 mmol/L (136-145); TSH (W/Ref FT4) 3.57 uIU/mL (0.36-3.74); Total Protein 6.3 g/dL (6.4-8.2); Troponin I 30 ng/L (<or=76)
[2025-07-04 06:50] LABS: Glucose 17 mg/dL (74-106)
[2025-07-04 06:52] LABS: Digoxin 0.99 ng/mL (0.90-2.00)
[2025-07-04] MEDS: Normal Saline-STERILE FIELD 0.9% 10 ML SYR (07:05)
[2025-07-04 07:14] LABS: Procalcitonin 0.34 ng/mL
[2025-07-04] MEDS: AMPICILLIN/SULBACTAM 3 GM in Normal Saline 100 ML IVPB (07:15)
[2025-07-04] MEDS: Dextrose 50%-Water 25 GM/50 ML SYR IVP (07:24)
[2025-07-04 07:42] LABS: Troponin I 28 ng/L (<or=76)
[2025-07-04] MEDS: DEXTROSE 10%-WATER 500 ML 50 ML IV ×2 (07:45→18:34)
--- NOTE | 2025-07-04 08:30 | W.EDPROG ---
Date of service: 07/04/25 Time of Service: 08:30 Medical Decision Making I received signout on this 84-year-old full code male intubated in setting of acute hypoxic respiratory failure pending read of CT chest abdomen pelvis prior to hospitalization. 9:[address] returned. And his lung there is extensive right-sided infiltrate with loculated pleural effusion concerning for aspiration versus empyema. In his abdomen there is anasarca with concerns for right sided hematoma. Patient is not anticoagulated to suggest benefit from reversal. Will repeat H&H now. His heart rate is 87. His MAP is 65. 9:16 AM I ordered type and screen. I was in touch with Dr. Felix who graciously agreed to accept the patient for hospitalization. 9:45 AM I updated the patient's daughter by phone on plan for hospitalization. I examined the patient. He had a soft abdomen with no signs of bruising to his right flank. Pulmonary performed bronchoscopy at bedside in the ED. 4:11 PM Repeat hemoglobin stable in the ED. Quality:SDOH Health Related Social Needs: Health related social needs inadequate housing Health related social needs details electrical issue with ceiling light in living room, unsure what, but needs help from an commercial journeyman electrician. Plumbing issue with pump that provides water - has water but very poor water pressure - no leaks that he knows of but too expensive to fix right now without help (pt states $1400). Sash Repairer broken, new one purchased but needs to be installed. Discharge Plan Disposition Patient Disposition: Admit to [facility] Discharge Details Clinical Impression: Hypoglycemia, Metabolic encephalopathy, Acute hypoxemic respiratory failure, Anasarca, Pneumonia involving right lung, Parapneumonic effusion Admit Date/Time: 07/04/25 11:06 Admit Provider: Joaquín Felix Attending Provider: Joaquín Felix Primary Care Provider: Soledad Slaughter ED Provider: Anand Villarreal Discharge Data Discharge Date/Time-TO BE ENTERED AT DEPARTURE: 07/04/25 11:10
[2025-07-04] MEDS: fentaNYL 1,000 MCG in Normal Saline 80 ML 5.9 MCG IV_INF (08:49)
--- NOTE | 2025-07-04 09:28 | W.PM.HP.N ---
Date of service: 07/04/25 Time of Service: 09:00 Assessment and Plan Assessment and plan (1) Septic shock due to undetermined organism: Status: Acute Assessment and plan: Cardiovascular Hypotensive shock likely due to sepsis, aspiration pneumonia vs SBP vs other Initially on norepinephrine, pressures remained soft Concern for active bleeding given stool occult blood, rectal cancer, recent paracentesis, possible fluid in abdominal wall per CT scan H&H not suggestive of active bleed, hemoglobin 9 BP improvement with NS 500 bolus and start of vasopressin Appreciate pulm/CC consult Respiratory Mechanical ventilation AC 22/450/100/8 Very poor prognosis Renal Adequate urine output No apparent NELLY at this time GI Concern for SBP, paracentesis deferred at this time Appreciate gen surg consult NPO Pantoprazole Infectious Patient is immunocompromised, last folfox treatment for colorectal cancer was June 12 No evidence of infection on discharge Jul 02 Broad spectrum antibiotics at this time, vanc and cefepime, narrow with cultures VTE ppx: held for bleeding concerns GI ppx: pantoprazole History of Present Illness History of Present Illness Chief Complaint: altered mental status Narrative: Dionna Iniguez is an 84 year old man presenting July 04, brought in from rehab facility where he was found obtunded at 0500, on CPAP, with gurgling respirations and blood in his mouth. SpO2 reportedly in the 80's, blood sugar reportedly in the 30's. He was given glucagon and brought to ED. GCS 5 on arrival with SpO2 74%. He was started on a nonrebreather. Blood sugar was low 30's and he was given an amp of D50 which resulted in eye opening and some vocalization; he remained unresponsive. He had fluid coming out of his mouth concerning for aspiration, and was intubated and an arterial line was placed. CT chest concerning for extensive right infiltrate concerning for loculated effusion or empyema. Abdominal anasarca and bruising but labs largely unremarkable. He was admitted to the ICU, intubated on one pressor. Patient had been discharged July 02 after lengthy hospital stay. He had been hospitalized June 14 after falling, with 3 days of weakness and shortness of breath. He was reported by EMS to be in atrial fibrillation with HR over 140. He was found to be hypertensive with systolic in the 180's, in atrial fibrillation with rate to 150's, with concern for pneumonia in the setting of immune suppression. He was given diltiazem to control heart rate. [facility] cardiology reportedly was consulted and recommended no additional intervention for arrhythmia. He was admitted for sepsis secondary to pneumonia. Soon after admission his heart rate again juan to the 150's and he was moved to the ICU for rate control. [facility] was again consulted and advised initiation of digoxin. Rate was well controlled, however patient developed evidence of digoxin toxicity and had to be treated with antidote. He had worsening abdominal distention and ascites and had paracentesis Jun 23 without evidence of SBP. He has not needed rate control medication since digoxin was stopped. Cardiac monitoring showed ongoing intermittent PACs and PVCs without atrial fibrillation. He has colorectal cancer and his last folfox treatment was June 12. Stool occult blood was positive throughout this hospitalization. He developed rectal bleeding on June 28, and was evaluated by general surgery. Antiplatelet medication was held. There were no further bleeding episodes and clopidogrel was resumed. Apixaban was held since June 27. PMH includes colorectal cancer on folfox chemotherapy, CKD, COPD not on home daytime O2, SAMMI on CPAP, CVA, DM, HTN, HLD, venous stasis dermatitis. PFSH All Active Problems (Updated 07/04/25 @ 17:28 by Joaquín Felix MD) Septic shock due to undetermined organism (Acute) Septic shock (Acute) Parapneumonic effusion (Acute) Pneumonia involving right lung (Acute) Anasarca (Acute) Acute hypoxemic respiratory failure (Acute) Metabolic encephalopathy (Acute) Hypoglycemia (Acute) Acute on chronic anemia (Acute) Moderate malnutrition (Acute) Ascites (Acute) Tremor (Acute) Venous stasis dermatitis of both lower extremities (Acute) 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, acquired (Acute) Edema of both lower extremities (Acute) Megaloblastic anemia due to B12 deficiency (Acute) Restrictive lung disease (Acute) Cyst of kidney, acquired (Acute) Primary malignant colorectal neoplasm (Acute) Bradycardia (Acute) Barretts esophagus (Acute) Generalized anxiety disorder (Acute) Neuropathy due to type 2 diabetes mellitus (Acute) Type 2 diabetes mellitus (Chronic) Essential hypertension (Acute) Obstructive sleep apnea syndrome (Chronic) Iron deficiency anemia (Acute) Screening for malignant neoplasm of skin (Acute) Abnormal skin growth (Acute) Actinic keratoses (Acute) Seborrheic keratoses (Acute) Disorder of the skin and subcutaneous tissue, unspecified (Acute) Leg wound, right (Acute) Umbilical hernia (Acute) Hyperlipidemia (Chronic) Hypertension (Chronic) Obesity (Chronic) COPD (chronic obstructive pulmonary disease) (Chronic) GERD (gastroesophageal reflux disease) (Chronic) Gout (Chronic) Stasis dermatitis of both legs (Chronic) Anemia (Acute) Diabetes mellitus type 2 in obese (Acute) Sinus bradycardia (Acute) 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) (Acute) Cellulitis of leg, right (Acute) Chronic venous stasis dermatitis of both lower extremities (Acute) COPD (chronic obstructive pulmonary disease) (Chronic) DVT prophylaxis (Acute) Ulcer of right lower leg (Acute) Venous stasis (Acute) Venous stasis ulcer of ankle limited to breakdown of skin (Acute) Leg length discrepancy (Acute 02/09/18) Primary osteoarthritis of right knee (Acute 11/01/17) Mitral valve regurgitation (Chronic) CVA (cerebral vascular accident) (Chronic) CKD stage 3 due to type 2 diabetes mellitus (Acute) Diabetic neuropathy (Acute) Onychomycosis (Acute) Medical History Atrial fibrillation Intertriginous candidiasis Decubitus ulcer of coccyx, stage 2 Advance care planning [place] positive Gout Severe obesity Tinnitus Hernia of anterior abdominal wall Family history of malignant neoplasm of prostate Proteinuria Idiopathic stabbing headache Antinuclear factor positive History of CVA (cerebrovascular accident) without residual deficits Kidney mass COVID Cutaneous abscess of abdominal wall Slurred speech Weakness Diabetic ulcer of right lower leg associated with diabetes mellitus due to underlying condition, with fat layer exposed Renal insufficiency Cirrhosis Cellulitis Hx TIA/stroke w/o resid SAMMI on CPAP HLD (hyperlipidemia) HTN (hypertension) Venous stasis ulcer right lateral calf Acute kidney injury (nontraumatic) Scalp hematoma Chest wall contusion Syncope Diabetes mellitus Community acquired pneumonia With hypoxia and bronchospasm. Surgical History History of surgery Debridement of right leg wound with Apligraf History of cholecystectomy H/O rectal sphincterotomy History of appendectomy History of total right hip arthroplasty Family History Father , age 63 Heart disease Stroke Hypertension Mother , age 101 No problems noted. Brother Prostate cancer Other Neoplasm Social History Smoking/Tobacco Use Status: Former Tobacco Use Quit Date: 03/06/84 Smoking risk assessment performed?: Yes Alcohol Intake: never Drug use: Never Substance use type: does not use Housing: house Current gender identity: male Do you feel safe at home: Yes Do you feel safe in your relationship?: Yes Meds Allergies and Home Medications Allergies Allergy/AdvReac Type Severity Reaction Status Date / Time cephalexin AdvReac Intermediate genitourinary Verified 07/04/25 09:55 edema Home Medications Medication Instructions Recorded Confirmed Type atorvastatin 40 mg tablet (Lipitor) 40 mg PO DAILY ##0 03/28/15 07/04/25 Rx Diabetic Shoe W Lift 11/01/17 Clinic Diabetic Shoe W Lift u ##1 11/01/17 Clinic allopurinol 100 mg tablet 100 mg PO DAILY 03/13/19 07/04/25 History clopidogrel 75 mg tablet 75 mg PO DAILY 03/13/19 07/04/25 History cyanocobalamin (vitamin B-12) 1,000 mcg PO BID 03/13/19 07/04/25 History 1,000 mcg tablet (Vitamin B-12) fluticasone 500 mcg-salmeterol 50 1 inh inhalation BID 03/13/19 07/04/25 History mcg/dose blistr powdr for inhalation (Advair Diskus) metformin 500 mg tablet 1,000 mg PO BID 03/13/19 07/04/25 History metolazone 2.5 mg tablet 2.5 mg PO .TWICE WEEKLY 03/13/19 07/04/25 History lisinopril 40 mg tablet 40 mg PO DAILY 03/10/21 07/04/25 History cholecalciferol (vitamin D3) 50 50 mcg PO DAILY 02/13/22 07/04/25 History mcg (2,000 unit) capsule ferrous sulfate 325 mg (65 mg 325 mg PO DAILY 02/13/22 07/04/25 History iron) tablet furosemide 20 mg tablet 40 mg PO DAILY 02/13/22 07/04/25 History zinc acetate 50 mg (zinc) capsule 50 mg PO DAILY 02/13/22 07/04/25 History (Galzin) pantoprazole 40 mg tablet,delayed 40 mg PO DAILY AM PRN 10/11/23 07/04/25 History release acetaminophen 325 mg tablet 650 mg PO Q6H PRN 11/07/24 07/04/25 History albuterol sulfate 2.5 mg/3 mL 2.5 mg inhalation Q2H PRN 11/07/24 07/04/25 History (0.083 %) solution for nebulization insulin degludec 100 unit/mL (3 25 unit subcut DAILY 11/07/24 07/04/25 History mL) subcutaneous pen (Tresiba FlexTouch U-100 insulin) semaglutide 1 mg/dose (4 mg/3 mL) 0.5 mg subcut QWEEK 11/07/24 07/04/25 History subcutaneous pen injector (Ozempic) umeclidinium 62.5 mcg/actuation 1 inh inhalation DAILY 11/07/24 07/04/25 History blister powder for inhalation (Incruse Ellipta) valacyclovir 500 mg tablet 500 mg PO TID 11/07/24 07/04/25 History ketoconazole 2 % topical cream 1 applic topical DAILY #120 grams 12/28/24 07/04/25 Rx fluorouracil 5 % topical cream 1 applic topical BID 05/18/25 06/22/25 History ondansetron HCl 8 mg tablet 8 mg PO Q8H 05/18/25 07/04/25 History amlodipine 10 mg tablet 10 mg PO DAILY 06/22/25 07/04/25 History citalopram 10 mg tablet 10 mg PO DAILY 06/22/25 07/04/25 History Exam Narrative Exam Narrative: General: This is an obese, chronically ill-appearing man, intubated and sedated in the ICU HEENT: Normocephalic, ETT in place, pupils reactive CV: irregular rhythm, regular rate Resp: mechanically ventilated on 80% O2 Abd: soft, protruberant. + fluid wave. anasarca. RLQ hematoma improved since prior. MSK: some voluntary motion. normal tone Neuro: sedated Results Labs 07/04/25 09:25 07/04/25 06:00 Labs: Laboratory Results - last 24 hr 07/04/25 07/04/25 07/04/25 06:00 06:15 07:20 WBC 11.54 H RBC 3.16 L Hgb 9.0 L Hct 29.5 L MCV 93 MCH 28.5 MCHC 30.5 L RDW 23.4 H Plt Count 165 MPV 10.3 Immature Gran % 0.9 Neutrophils % 91.1 Lymphocytes % 2.6 Monocytes % 5.1 Eosinophils % 0.2 Basophils % 0.1 Nucleated RBC % 0.0 Absolute Neutrophils 10.51 H Absolute Lymphocytes 0.30 L Absolute Monocytes 0.59 Absolute Eosinophils 0.02 Absolute Basophils 0.01 RBC Morphology See Below Hypochromasia 2+ Poikilocytosis 2+ Anisocytosis 2+ PT 9.3 INR 0.9 APTT 30.3 H VBG pH 7.34 VBG pCO2 47 VBG pO2 42 VBG HCO3 26 VBG Total CO2 24 VBG O2 Saturation 74 VBG Base Excess 0 VBG Lactate 1.3 Sodium 145 Potassium 4.9 Chloride 111 H Carbon Dioxide 27.2 Anion Gap 6.8 BUN 57 H Creatinine 1.7 H Est GFR (CKD-EPI 2020) 39.26 Glucose 17 L* Calcium 8.9 Total Bilirubin 0.5 AST 37 ALT 27 Alkaline Phosphatase 192 H Ammonia 10 L Troponin I 30 28 NT-Pro-B Natriuret Pep 1304 H Total Protein 6.3 L Albumin 1.6 L Procalcitonin 0.34 TSH 3.57 Urine Color Yellow Urine Clarity Clear Urine pH 5.0 Ur Specific [place] 1.010 Urine Protein Negative Urine Ketones Negative Urine Blood Trace-intact H Urine Nitrite Negative Urine Bilirubin Negative Urine Urobilinogen 0.2 Ur Leukocyte Esterase Negative Urine RBC 3-5 H Urine WBC 0-2 Ur Epithelial Cells Rare Urine Crystals Negative Urine Bacteria Rare Urine Casts Negative Urine Mucus Negative Ur Culture Indicated? No Urine Glucose Negative Digoxin 0.99 Last Vital Signs Temp 36.4 C L 07/04/25 05:47 Pulse 83 07/04/25 06:56 Resp 16 07/04/25 06:56 BP 110/38 L 07/04/25 06:56 Pulse Ox 98 07/04/25 06:56 Time Spent Time spent with Patient: 55-74 minutes Time was spent: preparing to see the patient(eg.review tests), obtaining and/or reviewing separately otained hiistory, ordering medications,tests, procedures, referring, communicating with other health cardiac care unit nurse, indepentently interpreting results, counseling the patient and care coordination
[2025-07-04 09:32] LABS: HCT 30.1 % (40.0-50.0); HGB 9.0 g/dL (13.5-17.5)
[2025-07-04 09:58] LABS: Troponin I 31 ng/L (<or=76)
--- NOTE | 2025-07-04 10:30 | PAPNONF_PTH ---
PATIENT: Dionna Iniguez LOC: [id number]#:[id number] AGE/SX: 84/M ROOM: [id number] RE07/04/[address]: Joaquín Felix : 1940 BED: A DIS: 07/05/2025 SPEC #: [id number] RECD: 07/04/25 12:55 STATUS: SOUMitzi REQ #: [id number] ROMERO: 07/04/25 10:[address]: Joaquín Felix DEPT: [facility] Cytology RECD BY: Tamika Ellis ENTERED: 07/04/25 12:58 SP TYPE: JOON BAINS DR: Soledad Slaughter Tissues: 1 - BODY FLUID CYTO(NOT S/U/N/EM)[facility] Procedures: BODY FLUID CYTO(NOT SPU/UR/NIP/ENDOM)[facility] Comments: [id number] (TV = 10 ml, SENT FRESH) (REFRIGERATED)
[2025-07-04] MEDS: Norepinephrine in D5W 8 MG/250 ML BAG 18.438 MG IV (11:00)
--- NOTE | 2025-07-04 11:01 | W.PM.OP ---
Operative Note Operative Note PRE-OP DIAGNOSIS: Aspiration pneumonia POST-OP DIAGNOSIS: same Right lung atelectasis and mucous plugging PROCEDURE: Flexible fiberoptic bronchoscopy, diagnostic and therapeutic SURGEON: Vance Rodriguez ANESTHESIA TYPE: General LMA/ETT (Propofol gtt, fentanyl gtt) PATHOLOGY: other (Bronchoalveolar lavage was obtained in the posterior segment of the right lower lobe and was sent for bacterial/fungal/afb culture, cell count, and cytopathology. Biopsies taken: none]) COMPLICATIONS: None Procedure Description: The risks (including bleeding, respiratory failure, and pneumothorax), benefits, and alternatives of the procedure were discussed with the patients family over the phone (Yanet Moreno) and consent was obtained. A Time Out was held and the above information confirmed. The patient was preoxygenated with 100% FiO2. The bronchoscope was passed through the ET tube and into the trachea. A full endobronchial examination was performed. There was extensive mucous plugging in the trachea, right mainstem, right upper lobe bronchi, right BI, and right lower lobe bronchi. The RML was clear. The left upper and lower lobes had minimal secretions. The mucous plugs were suctioned until clear. No endobronchial lesions or masses were seen. 40 mL of saline was injected into the posterior segment of the right lower lobe and 25 mL was aspirated. The fluid appeared purulent The patient will be transferred to the ICU from the ED for further management He tolerated the procedure well. Date of Procedure: 07/04/25
[2025-07-04 12:00] LABS: BE -6 mmol/L (-2-3); HCO3 23 mmol/L (22-26)
[2025-07-04 12:01] LABS: FIO2 100 %
--- NOTE | 2025-07-04 12:06 | PUCC_ITS ---
General Date of Service Date of service: 07/04/25 Time of Service: 10:00 Reason for Admission to ICU: Respiratory failure Assessment and Plan Assessment and plan (1) Acute hypoxemic respiratory failure: Status: Acute (2) Pneumonia involving right lung: Status: Acute (3) COPD (chronic obstructive pulmonary disease): Status: Chronic (4) Obstructive sleep apnea syndrome: Status: Chronic (5) Hypoglycemia: Status: Acute (6) Ascites: Status: Acute (7) CKD stage 3 due to type 2 diabetes mellitus: Status: Acute (8) Anemia: Status: Acute Recommendations Pulmonary: Assessment: 1. Acute hypoxemic respiratory failure - due to pneumonia and aspiration 2. Septic shock - due to pneumonia 3. Encephalopathy - likley due to hypoglycemia. CT head unremarkable. Currently sedated with propofol/fentanyl 4. Aspiration pneumonia - given prolonged hospitalization at risk for MDR. S/P bronchoscopy with RLL BAL - cultures pending 5. Cirrhosis / ascites - POCUS exam 07/04 showed moderate ascites. Likely due to cirrhosis. Given stable Hb unlikely hemoperitoneum 6. Pleural effusions - only trace right pleural effusion noted on POCUS exam 07/04. He appears to have some loculated fluid in the major fissure, which was present during his last admission. Suspect he has some 3rd spacing related to cirrhosis. Cannot rule out parapnuemonic / empyema, but feel this is less likely 7. Afib - rate controlled 8. Anemia - had a recent GI bleed. No signs of active bleeding at this time. Hb stable at 9.0 9. Colorectal cancer - recently received chemotherapy (FolFox) 10. CKD - Cr 1.7 and at baseline 11. Hx positive [place]/anti-dsDNA ab - ? lupus 12. SAMMI 13. COPD - FEV1 64% in 2016. Not in exacerbation Recommendations: - continue vancomycin, cefepime, and unasyn for pneumonia coverage - follow up on BAL fluid cultures and can streamline antibiotics accordingly - repeat ABG - titrate levophed for MAP > 65 - titrate down FiO2 for SPO2 > 90%. Keep PEEP at 8 cmH2O for today - did not see a significant pleural effusion on his POCUS exam today. He has a small amount of fluid in the right major fissure, which was present during his last admission. Suspect this was more related to his underlying cirrhosis. The amount of fluid has not increased since his last exam so do not believe a chest tube is warranted. Woulld not be able to obtain fluid from thoracentesis as it is too small - his overall prognosis is very guarded at this time. - continue propofol / fentanyl for sedation. Can titrate down propofol. Discussed with Dr. Felix I&O: Intake & Output 07/01/25 07/02/25 07/03/25 07/04/25 23:59 23:59 23:59 23:59 Intake Total 155.998 / 155.998 Output Total 350 / 350 Balance -194.002 / -194.002 Weight 118 kg Code Status: Resuscitation Status Full Code Subjective Critical and life-threatening events over the past 24 hours: Patient is an 84 yo with a history of colon cancer, afib, COPD, cirrhosis, CKD, and SAMMI who was admitted on 07/04/25 for encephalopathy and acute respiratory failure. He had a prolonged hospitalization earlier this month for afib w RVR, pneumonia and lower GI bleeding. He was discharged on 07/02/25. Was brought to the ED 07/04 for encephalopathy and hypoglycemia. Was intubated in the ED for encephalopathy and airway protection. There was concern that he had aspirated prior to arrival. CT imaging in the ED showed worsening right infiltrates, atelectasis/consolidation of the right lower lobe. CT abd showed significant ascites. Bronchoscopy with removal of significant mucous plugging from the right lung was completed in the ED. BAL of the RLL was collected and sent for analysis/culture. He was started on broad spectrum antibiotics. He is currently on FiO2 60%. Hypotensive and started on levophed at 10 mcg/min. Sedated with propofol and fentanyl. Ascites fluid was sampled during his prior admission (06/23). Fluid was not consistent with SBP. ROS: Unable to obtain due to clinical condition Exam Narrative Exam Narrative: General: intubated, sedated, no acute distress Head: normocephalic, ET tube in place ENT: no stridor, trachea midline CV: normal rate, irregular rhythm Respiratory: no wheezing, no crackles, bilateral rhonchi, no prolonged expiration GI: abd soft, mild distension Skin: no rashes Extremities: +1 edema Neuro: sedated Most Recent VS/Results Last Vital Signs Temp 36.4 C L 07/04/25 05:47 Pulse 80 07/04/25 10:40 Resp 16 07/04/25 11:29 BP 96/33 L 07/04/25 09:46 Pulse Ox 93 07/04/25 11:29 Laboratory Results - last 24 hr 07/04/25 07/04/25 07/04/25 06:00 06:15 07:20 WBC 11.54 H RBC 3.16 L Hgb 9.0 L Hct 29.5 L MCV 93 MCH 28.5 MCHC 30.5 L RDW 23.4 H Plt Count 165 MPV 10.3 Immature Gran % 0.9 Neutrophils % 91.1 Lymphocytes % 2.6 Monocytes % 5.1 Eosinophils % 0.2 Basophils % 0.1 Nucleated RBC % 0.0 Absolute Neutrophils 10.51 H Absolute Lymphocytes 0.30 L Absolute Monocytes 0.59 Absolute Eosinophils 0.02 Absolute Basophils 0.01 RBC Morphology See Below Hypochromasia 2+ Poikilocytosis 2+ Anisocytosis 2+ PT 9.3 INR 0.9 APTT 30.3 H ABG Sample Site ABG pH ABG pCO2 ABG pO2 ABG HCO3 ABG Total CO2 ABG O2 Saturation ABG Base Excess VBG pH 7.34 VBG pCO2 47 VBG pO2 42 VBG HCO3 26 VBG Total CO2 24 VBG O2 Saturation 74 VBG Base Excess 0 VBG Lactate 1.3 FiO2 Sodium 145 Potassium 4.9 Chloride 111 H Carbon Dioxide 27.2 Anion Gap 6.8 BUN 57 H Creatinine 1.7 H Est GFR (CKD-EPI 2020) 39.26 Glucose 17 L* Calcium 8.9 Total Bilirubin 0.5 AST 37 ALT 27 Alkaline Phosphatase 192 H Ammonia 10 L Troponin I 30 28 NT-Pro-B Natriuret Pep 1304 H Total Protein 6.3 L Albumin 1.6 L Procalcitonin 0.34 TSH 3.57 Urine Color Yellow Urine Clarity Clear Urine pH 5.0 Ur Specific [place] 1.010 Urine Protein Negative Urine Ketones Negative Urine Blood Trace-intact H Urine Nitrite Negative Urine Bilirubin Negative Urine Urobilinogen 0.2 Ur Leukocyte Esterase Negative Urine RBC 3-5 H Urine WBC 0-2 Ur Epithelial Cells Rare Urine Crystals Negative Urine Bacteria Rare Urine Casts Negative Urine Mucus Negative Ur Culture Indicated? No Urine Glucose Negative Digoxin 0.99 ABO/Rh O Positive Antibody Screen NEGATIVE 07/04/25 07/04/25 09:25 11:54 WBC RBC Hgb 9.0 L Hct 30.1 L MCV MCH MCHC RDW Plt Count MPV Immature Gran % Neutrophils % Lymphocytes % Monocytes % Eosinophils % Basophils % Nucleated RBC % Absolute Neutrophils Absolute Lymphocytes Absolute Monocytes Absolute Eosinophils Absolute Basophils RBC Morphology Hypochromasia Poikilocytosis Anisocytosis PT INR APTT ABG Sample Site Left Radial ABG pH 7.18 L* ABG pCO2 60 H ABG pO2 82 ABG HCO3 23 ABG Total CO2 22 L ABG O2 Saturation 94 L ABG Base Excess -6 L VBG pH VBG pCO2 VBG pO2 VBG HCO3 VBG Total CO2 VBG O2 Saturation VBG Base Excess VBG Lactate FiO2 100 Sodium Potassium Chloride Carbon Dioxide Anion Gap BUN Creatinine Est GFR (CKD-EPI 2020) Glucose Calcium Total Bilirubin AST ALT Alkaline Phosphatase Ammonia Troponin I 31 NT-Pro-B Natriuret Pep Total Protein Albumin Procalcitonin TSH Urine Color Urine Clarity Urine pH Ur Specific [place] Urine Protein Urine Ketones Urine Blood Urine Nitrite Urine Bilirubin Urine Urobilinogen Ur Leukocyte Esterase Urine RBC Urine WBC Ur Epithelial Cells Urine Crystals Urine Bacteria Urine Casts Urine Mucus Ur Culture Indicated? Urine Glucose Digoxin ABO/Rh Antibody Screen Time spent with patient Time spent in Critical Care: 65 Time spent in Critical care included: Performing procedures not included in c.c time, Coordination of care, Chart review, Documenting critically ill care, Time at immediate bedside, Discussing critically ill care with other medical staff and Discussing care with family members POCUS Pulmonology Limited thoracic lung Exam DATE OF EXAM: 07/04/25 TIME OF EXAM: 10:06 PROVIDER THAT PERFORMED THE STUDY: Vance Rodriguez IS THIS A REPEAT STUDY: No REASON FOR EXAM: Pleural Effusion Visualized structures: right lateral, right posterior and Other (right abdomen) Right lung PERTINENT FINDINGS/IMPRESSION: Present Right pleural effusion (trace) and Other (moderate ascites) impression: trace right effusion, moderate abdominal ascites Exam complete
[2025-07-04] MEDS: VANCOMYCIN/WATER (PEG) 2 GM/400 ML BAG IVPB (12:12)
[2025-07-04] MEDS: CEFEPIME 2 GM in Normal Saline 100 ML IVPB (12:35)
[2025-07-04] MEDS: PROPOFOL 1,000 MG/100 ML BTL 10.62 MG IV_INF (12:36)
--- NOTE | 2025-07-04 12:54 | PHA.REVIEW2 ---
Pharmacy Admission Review Admission Clinical Review Admission Pharmacy Review: Pneumonia involving right lung (Acute) Acute hypoxemic respiratory failure (Acute) Metabolic encephalopathy (Acute) Hypoglycemia (Acute) Ascites (Acute) Anemia (Acute) CKD stage 3 due to type 2 diabetes mellitus (Acute) cephalexin Adverse Reaction (Intermediate, Verified 07/04/25 09:55) genitourinary edema Resuscitation Status Full Code Height 5 ft 10 in Weight 118 kg Comments Comments/Follow Ups: Watch for addition of antibiotics and home meds once patient is no longer intubated Pharmacy Admission Review Renal Dosing Renal Dosing: BUN 57 mg/dL (7-18) H 07/04/25 06:00 Creatinine 1.7 mg/dL (0.70-1.30) H 07/04/25 06:00 Medications needing adjustments: Reviewed (CrCl 41.6 mL/min) List of meds needing interventions: Current medications are okay Anticoagulation Anticoagulation: Hgb 9.0 g/dL (13.5-17.5) L 07/04/25 09:25 Hct 30.1 % (40.0-50.0) L 07/04/25 09:25 Plt Count 165 10^3/uL (130-400) 07/04/25 06:00 INR 0.9 (0.9-1.1) 07/04/25 06:00 Creatinine 1.7 mg/dL (0.70-1.30) H 07/04/25 06:00 DVT Prophylaxis: Reviewed (SCDs) Opiate Usage Evaluate Pain Scale/Pains Meds: Reviewed (fentanyl infusion @ 1 mcg/kg/hr) Relevant Labs Relevant Labs: Sodium 145 mmol/L (136-145) 07/04/25 06:00 Potassium 4.9 mmol/L (3.5-5.1) 07/04/25 06:00 Chloride 111 mmol/L (98-107) H 07/04/25 06:00 Electrolytes, C-Reactive P, ESR: Reviewed DM Control DM Control: Glucose 17 mg/dL (74-106) L* 07/04/25 06:00 Finger Stick Blood Glucose 116 1200 Finger Stick Blood Glucose 116 1200 Finger Stick Blood Glucose 120 0904 Finger Stick Blood Glucose 120 0904 Finger Stick Blood Glucose 64 0713 Finger Stick Blood Glucose 64 0713 Finger Stick Blood Glucose 20 0554 Finger Stick Blood Glucose 20 0554 DM Control: Reviewed Insulin Dosing, Diabetic Medication: No medications ordered at this time Cardiac Review Cardiac Review: Troponin I 31 ng/L (<or=76) 07/04/25 09:25 NT-Pro-B Natriuret Pep 1304 pg/mL (<300) H 07/04/25 06:00 Blood Pressure 79/29 1100 Blood Pressure 96/33 0946 Blood Pressure 95/44 0931 Blood Pressure 113/26 0923 Blood Pressure 121/67 0849 Blood Pressure 113/44 0846 Blood Pressure 112/38 0840 Blood Pressure 118/59 0831 Blood Pressure 139/47 0746 Blood Pressure 164/44 0741 Blood Pressure 172/51 0736 Blood Pressure 166/60 0730 Blood Pressure 136/42 0725 Blood Pressure 126/41 0721 Blood Pressure 128/41 0716 Blood Pressure 124/42 0711 Blood Pressure 117/37 0706 Blood Pressure 116/38 0701 BP, HR, EF%: Reviewed (HR 59) List meds needing interventions: On propofol infusion @ 15 mcg/kg/min and norepinephrine infusion @ 40 mcg/kg/hr QTc Review QTc: Reviewed (407 from 07/04/25) IV to PO Switch IV Medications: Reviewed (intubated) Home Meds Home Med List reviewed: Reviewed (None ordered - patient currently intubated due to respiratory failure) Relevent Home Meds Not ordered & why?: acetaminophen (PRN), albuterol nebs (PRN), allopurinol, amlodipine, atorvastatin, vitamin D3, citalopram, clopidogrel, vitamin B12, ferrous sulfate, fluorouracil cream, Advair, furosemide, Tresiba, ketoconazole cream, lisinopril, metformin, metolazone, ondansetron (PRN), pantoprazole, Ozempic, Incruse Ellipta, valacyclovir and zinc acetate Current Meds Current Medication Order Review: Intervened Comments: Changed IV ED access Pharmacy Antibiotic Review Relevant Labs: Relevant Labs 07/04/25 06:00 Procalcitonin 0.34 Comments: Patient received now one doses of vancomycin, cefepime and Unasyn in the ED. No further orders placed at this time. Comments Comments/Follow Ups: Watch for addition of antibiotics and home meds once patient is no longer intubated
[2025-07-04] MEDS: Norepinephrine in D5W 8 MG/250 ML BAG 131.25 MG IV (14:40)
[2025-07-04] MEDS: Normal Saline 500 ML IV (14:50)
[2025-07-04] MEDS: VASOPRESSIN 50 UNITS in Normal Saline 497.5 ML 18 UNITS IV (15:00)
[2025-07-04 15:12] LABS: BE -8 mmol/L (-2-3); HCO3 19 mmol/L (22-26)
[2025-07-04 15:18] LABS: FIO2 80 %
[2025-07-04] MEDS: Normal Saline Flush 10 ML SYR IVP (15:41)
--- NOTE | 2025-07-04 16:15 | W.SURGCON ---
Date of service: 07/04/25 Time of Service: 15:45 Assessment and Plan Assessment and plan (1) Septic shock: Status: Acute Assessment and plan: shock most consistent with septic shock. Continue current management with antibiotics, volume management, ventilator and pressor support. No evidence of acute bleeding as an exacerbating factor. Hgb stable from yesterday at 9, and no evidence of abd wall hematoma or recurrent GI bleeding from known rectal cancer. I think it is an appropriate time to discuss goals of care as this frail and immunocompromised patient is critically ill. At this time the surgeons will follow peripherally. Please let us know if an opportunity to help arises. 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 He has worsened clinically and is requiring more pressor support. I am asked to evaluate him at bedside to help confirm that there are no additional sources of shock such acute bleeding. At his last admission he had acute GI bleeding, and also had paracentesis with hematoma at the last hospitalization so abdominal wall bleeding is a consideration. Pt in intubated and sedated at the time of my assessment. Family is around. History obtained from hospitalist, medical record and nursing staff. ROS not obtainable. Reviewed admission CT chest/abd/pelvis and compared to prior admission CT abd/pelvis. Reviewed labs and objectives including vitals. Drips, medication, and ventilator settings all reviewed as well. Patient examined. [facility] All Active Problems (Updated 07/04/25 @ 16:58 by Dana Griffin MD) Septic shock (Acute) Parapneumonic effusion (Acute) Pneumonia involving right lung (Acute) Anasarca (Acute) Acute hypoxemic respiratory failure (Acute) Metabolic encephalopathy (Acute) Hypoglycemia (Acute) Acute on chronic anemia (Acute) Moderate malnutrition (Acute) Ascites (Acute) Tremor (Acute) Venous stasis dermatitis of both lower extremities (Acute) 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, acquired (Acute) Edema of both lower extremities (Acute) Megaloblastic anemia due to B12 deficiency (Acute) Restrictive lung disease (Acute) Cyst of kidney, acquired (Acute) Primary malignant colorectal neoplasm (Acute) Bradycardia (Acute) Barretts esophagus (Acute) Generalized anxiety disorder (Acute) Neuropathy due to type 2 diabetes mellitus (Acute) Type 2 diabetes mellitus (Chronic) Essential hypertension (Acute) Obstructive sleep apnea syndrome (Chronic) Iron deficiency anemia (Acute) Screening for malignant neoplasm of skin (Acute) Abnormal skin growth (Acute) Actinic keratoses (Acute) Seborrheic keratoses (Acute) Disorder of the skin and subcutaneous tissue, unspecified (Acute) Leg wound, right (Acute) Umbilical hernia (Acute) Hyperlipidemia (Chronic) Hypertension (Chronic) Obesity (Chronic) COPD (chronic obstructive pulmonary disease) (Chronic) GERD (gastroesophageal reflux disease) (Chronic) Gout (Chronic) Stasis dermatitis of both legs (Chronic) Anemia (Acute) Diabetes mellitus type 2 in obese (Acute) Sinus bradycardia (Acute) 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) (Acute) Cellulitis of leg, right (Acute) Chronic venous stasis dermatitis of both lower extremities (Acute) COPD (chronic obstructive pulmonary disease) (Chronic) DVT prophylaxis (Acute) Ulcer of right lower leg (Acute) Venous stasis (Acute) Venous stasis ulcer of ankle limited to breakdown of skin (Acute) Leg length discrepancy (Acute 02/09/18) Primary osteoarthritis of right knee (Acute 11/01/17) Mitral valve regurgitation (Chronic) CVA (cerebral vascular accident) (Chronic) CKD stage 3 due to type 2 diabetes mellitus (Acute) Diabetic neuropathy (Acute) Onychomycosis (Acute) Medical History Atrial fibrillation Intertriginous candidiasis Decubitus ulcer of coccyx, stage 2 Advance care planning [place] positive Gout Severe obesity Tinnitus Hernia of anterior abdominal wall Family history of malignant neoplasm of prostate Proteinuria Idiopathic stabbing headache Antinuclear factor positive History of CVA (cerebrovascular accident) without residual deficits Kidney mass COVID Cutaneous abscess of abdominal wall Slurred speech Weakness Diabetic ulcer of right lower leg associated with diabetes mellitus due to underlying condition, with fat layer exposed Renal insufficiency Cirrhosis Cellulitis Hx TIA/stroke w/o resid SAMMI on CPAP HLD (hyperlipidemia) HTN (hypertension) Venous stasis ulcer right lateral calf Acute kidney injury (nontraumatic) Scalp hematoma Chest wall contusion Syncope Diabetes mellitus Community acquired pneumonia With hypoxia and bronchospasm. Surgical History History of surgery Debridement of right leg wound with Apligraf History of cholecystectomy H/O rectal sphincterotomy History of appendectomy History of total right hip arthroplasty Family History Father , age 63 Heart disease Stroke Hypertension Mother , age 101 No problems noted. Brother Prostate cancer Other Neoplasm Social History Smoking/Tobacco Use Status: Former Tobacco Use Quit Date: 03/06/84 Smoking risk assessment performed?: Yes Alcohol Intake: never Drug use: Never Substance use type: does not use Housing: house Current gender identity: male Do you feel safe at home: Yes Do you feel safe in your relationship?: Yes Exam Narrative Exam Narrative: intubated, sedated anasarca present no subconjuctival hemorrhage, anicteric sclerae neck symmetric equal chest rise with ventilator assisted respirations. abdomen is round, soft, does not appear tender to palpation. Edematous abdominal wall. RLQ resolving hematoma from paracentesis, normal changes as expected post procedure, no exaggerated or abnormal thickening or abd wall hematoma. + fluid wave R abdomen. extremities are edematous brief with urine, yellow, no blood. Results Last Vital Signs Temp 96.4 F L 07/04/25 11:35 Pulse 63 07/04/25 15:31 Resp 16 07/04/25 15:31 BP 140/75 07/04/25 15:31 Pulse Ox 92 07/04/25 15:31 Labs 07/04/25 09:25 07/04/25 06:00 Labs: Laboratory Results - last 24 hr 07/04/25 07/04/25 07/04/25 06:00 06:15 07:20 WBC 11.54 H RBC 3.16 L Hgb 9.0 L Hct 29.5 L MCV 93 MCH 28.5 MCHC 30.5 L RDW 23.4 H Plt Count 165 MPV 10.3 Immature Gran % 0.9 Neutrophils % 91.1 Lymphocytes % 2.6 Monocytes % 5.1 Eosinophils % 0.2 Basophils % 0.1 Nucleated RBC % 0.0 Absolute Neutrophils 10.51 H Absolute Lymphocytes 0.30 L Absolute Monocytes 0.59 Absolute Eosinophils 0.02 Absolute Basophils 0.01 RBC Morphology See Below Hypochromasia 2+ Poikilocytosis 2+ Anisocytosis 2+ PT 9.3 INR 0.9 APTT 30.3 H ABG Sample Site ABG pH ABG pCO2 ABG pO2 ABG HCO3 ABG Total CO2 ABG O2 Saturation ABG Base Excess VBG pH 7.34 VBG pCO2 47 VBG pO2 42 VBG HCO3 26 VBG Total CO2 24 VBG O2 Saturation 74 VBG Base Excess 0 VBG Lactate 1.3 FiO2 Sodium 145 Potassium 4.9 Chloride 111 H Carbon Dioxide 27.2 Anion Gap 6.8 BUN 57 H Creatinine 1.7 H Est GFR (CKD-EPI 2020) 39.26 Glucose 17 L* Calcium 8.9 Total Bilirubin 0.5 AST 37 ALT 27 Alkaline Phosphatase 192 H Ammonia 10 L Troponin I 30 28 NT-Pro-B Natriuret Pep 1304 H Total Protein 6.3 L Albumin 1.6 L Procalcitonin 0.34 TSH 3.57 Urine Color Yellow Urine Clarity Clear Urine pH 5.0 Ur Specific [place] 1.010 Urine Protein Negative Urine Ketones Negative Urine Blood Trace-intact H Urine Nitrite Negative Urine Bilirubin Negative Urine Urobilinogen 0.2 Ur Leukocyte Esterase Negative Urine RBC 3-5 H Urine WBC 0-2 Ur Epithelial Cells Rare Urine Crystals Negative Urine Bacteria Rare Urine Casts Negative Urine Mucus Negative Ur Culture Indicated? No Urine Glucose Negative Digoxin 0.99 ABO/Rh O Positive Antibody Screen NEGATIVE 07/04/25 07/04/25 07/04/25 09:25 11:54 15:10 WBC RBC Hgb 9.0 L Hct 30.1 L MCV MCH MCHC RDW Plt Count MPV Immature Gran % Neutrophils % Lymphocytes % Monocytes % Eosinophils % Basophils % Nucleated RBC % Absolute Neutrophils Absolute Lymphocytes Absolute Monocytes Absolute Eosinophils Absolute Basophils RBC Morphology Hypochromasia Poikilocytosis Anisocytosis PT INR APTT ABG Sample Site Left Radial Arterial Line ABG pH 7.18 L* 7.22 L ABG pCO2 60 H 48 H ABG pO2 82 66 L ABG HCO3 23 19 L ABG Total CO2 22 L 20 L ABG O2 Saturation 94 L 91 L ABG Base Excess -6 L -8 L VBG pH VBG pCO2 VBG pO2 VBG HCO3 VBG Total CO2 VBG O2 Saturation VBG Base Excess VBG Lactate FiO2 100 80 Sodium Potassium Chloride Carbon Dioxide Anion Gap BUN Creatinine Est GFR (CKD-EPI 2020) Glucose Calcium Total Bilirubin AST ALT Alkaline Phosphatase Ammonia Troponin I 31 NT-Pro-B Natriuret Pep Total Protein Albumin Procalcitonin TSH Urine Color Urine Clarity Urine pH Ur Specific [place] Urine Protein Urine Ketones Urine Blood Urine Nitrite Urine Bilirubin Urine Urobilinogen Ur Leukocyte Esterase Urine RBC Urine WBC Ur Epithelial Cells Urine Crystals Urine Bacteria Urine Casts Urine Mucus Ur Culture Indicated? Urine Glucose Digoxin ABO/Rh Antibody Screen
[2025-07-04] MEDS: Norepinephrine in D5W 8 MG/250 ML BAG 103.125 MG IV (16:46)
--- NOTE | 2025-07-04 16:51 | W.PM.HP.N ---
Date of service: 07/04/25 Time of Service: 09:00 History of Present Illness History of Present Illness Chief Complaint: altered mental status Narrative: Dionna Iniguez is an 84 year old man presenting July 04, brought in from rehab facility where he was found obtunded at 0500, on CPAP, with gurgling respirations and blood in his mouth, with blood sugar in the 30's. [facility] All Active Problems (Updated 07/04/25 @ 16:58 by Dana Griffin MD) Septic shock (Acute) Parapneumonic effusion (Acute) Pneumonia involving right lung (Acute) Anasarca (Acute) Acute hypoxemic respiratory failure (Acute) Metabolic encephalopathy (Acute) Hypoglycemia (Acute) Acute on chronic anemia (Acute) Moderate malnutrition (Acute) Ascites (Acute) Tremor (Acute) Venous stasis dermatitis of both lower extremities (Acute) 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, acquired (Acute) Edema of both lower extremities (Acute) Megaloblastic anemia due to B12 deficiency (Acute) Restrictive lung disease (Acute) Cyst of kidney, acquired (Acute) Primary malignant colorectal neoplasm (Acute) Bradycardia (Acute) Barretts esophagus (Acute) Generalized anxiety disorder (Acute) Neuropathy due to type 2 diabetes mellitus (Acute) Type 2 diabetes mellitus (Chronic) Essential hypertension (Acute) Obstructive sleep apnea syndrome (Chronic) Iron deficiency anemia (Acute) Screening for malignant neoplasm of skin (Acute) Abnormal skin growth (Acute) Actinic keratoses (Acute) Seborrheic keratoses (Acute) Disorder of the skin and subcutaneous tissue, unspecified (Acute) Leg wound, right (Acute) Umbilical hernia (Acute) Hyperlipidemia (Chronic) Hypertension (Chronic) Obesity (Chronic) COPD (chronic obstructive pulmonary disease) (Chronic) GERD (gastroesophageal reflux disease) (Chronic) Gout (Chronic) Stasis dermatitis of both legs (Chronic) Anemia (Acute) Diabetes mellitus type 2 in obese (Acute) Sinus bradycardia (Acute) 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) (Acute) Cellulitis of leg, right (Acute) Chronic venous stasis dermatitis of both lower extremities (Acute) COPD (chronic obstructive pulmonary disease) (Chronic) DVT prophylaxis (Acute) Ulcer of right lower leg (Acute) Venous stasis (Acute) Venous stasis ulcer of ankle limited to breakdown of skin (Acute) Leg length discrepancy (Acute 02/09/18) Primary osteoarthritis of right knee (Acute 11/01/17) Mitral valve regurgitation (Chronic) CVA (cerebral vascular accident) (Chronic) CKD stage 3 due to type 2 diabetes mellitus (Acute) Diabetic neuropathy (Acute) Onychomycosis (Acute) Medical History (Updated 07/04/25 @ 16:58 by Dana Griffin MD) Atrial fibrillation Intertriginous candidiasis Decubitus ulcer of coccyx, stage 2 Advance care planning [place] positive Gout Severe obesity Tinnitus Hernia of anterior abdominal wall Family history of malignant neoplasm of prostate Proteinuria Idiopathic stabbing headache Antinuclear factor positive History of CVA (cerebrovascular accident) without residual deficits Kidney mass COVID Cutaneous abscess of abdominal wall Slurred speech Weakness Diabetic ulcer of right lower leg associated with diabetes mellitus due to underlying condition, with fat layer exposed Renal insufficiency Cirrhosis Cellulitis Hx TIA/stroke w/o resid SAMMI on CPAP HLD (hyperlipidemia) HTN (hypertension) Venous stasis ulcer right lateral calf Acute kidney injury (nontraumatic) Scalp hematoma Chest wall contusion Syncope Diabetes mellitus Community acquired pneumonia With hypoxia and bronchospasm. Surgical History History of surgery Debridement of right leg wound with Apligraf History of cholecystectomy H/O rectal sphincterotomy History of appendectomy History of total right hip arthroplasty Family History Father , age 63 Heart disease Stroke Hypertension Mother , age 101 No problems noted. Brother Prostate cancer Other Neoplasm Social History Smoking/Tobacco Use Status: Former Tobacco Use Quit Date: 03/06/84 Smoking risk assessment performed?: Yes Alcohol Intake: never Drug use: Never Substance use type: does not use Housing: house Current gender identity: male Do you feel safe at home: Yes Do you feel safe in your relationship?: Yes Meds Allergies and Home Medications Allergies Allergy/AdvReac Type Severity Reaction Status Date / Time cephalexin AdvReac Intermediate genitourinary Verified 07/04/25 09:55 edema Home Medications Medication Instructions Recorded Confirmed Type atorvastatin 40 mg tablet (Lipitor) 40 mg PO DAILY ##0 03/28/15 07/04/25 Rx Diabetic Shoe W Lift 11/01/17 Clinic Diabetic Shoe W Lift u ##1 11/01/17 Clinic allopurinol 100 mg tablet 100 mg PO DAILY 03/13/19 07/04/25 History clopidogrel 75 mg tablet 75 mg PO DAILY 03/13/19 07/04/25 History cyanocobalamin (vitamin B-12) 1,000 mcg PO BID 03/13/19 07/04/25 History 1,000 mcg tablet (Vitamin B-12) fluticasone 500 mcg-salmeterol 50 1 inh inhalation BID 03/13/19 07/04/25 History mcg/dose blistr powdr for inhalation (Advair Diskus) metformin 500 mg tablet 1,000 mg PO BID 03/13/19 07/04/25 History metolazone 2.5 mg tablet 2.5 mg PO .TWICE WEEKLY 03/13/19 07/04/25 History lisinopril 40 mg tablet 40 mg PO DAILY 03/10/21 07/04/25 History cholecalciferol (vitamin D3) 50 50 mcg PO DAILY 02/13/22 07/04/25 History mcg (2,000 unit) capsule ferrous sulfate 325 mg (65 mg 325 mg PO DAILY 02/13/22 07/04/25 History iron) tablet furosemide 20 mg tablet 40 mg PO DAILY 02/13/22 07/04/25 History zinc acetate 50 mg (zinc) capsule 50 mg PO DAILY 02/13/22 07/04/25 History (Galzin) pantoprazole 40 mg tablet,delayed 40 mg PO DAILY AM PRN 10/11/23 07/04/25 History release acetaminophen 325 mg tablet 650 mg PO Q6H PRN 11/07/24 07/04/25 History albuterol sulfate 2.5 mg/3 mL 2.5 mg inhalation Q2H PRN 11/07/24 07/04/25 History (0.083 %) solution for nebulization insulin degludec 100 unit/mL (3 25 unit subcut DAILY 11/07/24 07/04/25 History mL) subcutaneous pen (Tresiba FlexTouch U-100 insulin) semaglutide 1 mg/dose (4 mg/3 mL) 0.5 mg subcut QWEEK 11/07/24 07/04/25 History subcutaneous pen injector (Ozempic) umeclidinium 62.5 mcg/actuation 1 inh inhalation DAILY 11/07/24 07/04/25 History blister powder for inhalation (Incruse Ellipta) valacyclovir 500 mg tablet 500 mg PO TID 11/07/24 07/04/25 History ketoconazole 2 % topical cream 1 applic topical DAILY #120 grams 12/28/24 07/04/25 Rx fluorouracil 5 % topical cream 1 applic topical BID 05/18/25 06/22/25 History ondansetron HCl 8 mg tablet 8 mg PO Q8H 05/18/25 07/04/25 History amlodipine 10 mg tablet 10 mg PO DAILY 06/22/25 07/04/25 History citalopram 10 mg tablet 10 mg PO DAILY 06/22/25 07/04/25 History Results Labs 07/04/25 09:25 07/04/25 06:00 Labs: Laboratory Results - last 24 hr 07/04/25 07/04/25 07/04/25 06:00 06:15 07:20 WBC 11.54 H RBC 3.16 L Hgb 9.0 L Hct 29.5 L MCV 93 MCH 28.5 MCHC 30.5 L RDW 23.4 H Plt Count 165 MPV 10.3 Immature Gran % 0.9 Neutrophils % 91.1 Lymphocytes % 2.6 Monocytes % 5.1 Eosinophils % 0.2 Basophils % 0.1 Nucleated RBC % 0.0 Absolute Neutrophils 10.51 H Absolute Lymphocytes 0.30 L Absolute Monocytes 0.59 Absolute Eosinophils 0.02 Absolute Basophils 0.01 RBC Morphology See Below Hypochromasia 2+ Poikilocytosis 2+ Anisocytosis 2+ PT 9.3 INR 0.9 APTT 30.3 H ABG Sample Site ABG pH ABG pCO2 ABG pO2 ABG HCO3 ABG Total CO2 ABG O2 Saturation ABG Base Excess VBG pH 7.34 VBG pCO2 47 VBG pO2 42 VBG HCO3 26 VBG Total CO2 24 VBG O2 Saturation 74 VBG Base Excess 0 VBG Lactate 1.3 FiO2 Sodium 145 Potassium 4.9 Chloride 111 H Carbon Dioxide 27.2 Anion Gap 6.8 BUN 57 H Creatinine 1.7 H Est GFR (CKD-EPI 2020) 39.26 Glucose 17 L* Calcium 8.9 Total Bilirubin 0.5 AST 37 ALT 27 Alkaline Phosphatase 192 H Ammonia 10 L Troponin I 30 28 NT-Pro-B Natriuret Pep 1304 H Total Protein 6.3 L Albumin 1.6 L Procalcitonin 0.34 TSH 3.57 Urine Color Yellow Urine Clarity Clear Urine pH 5.0 Ur Specific [place] 1.010 Urine Protein Negative Urine Ketones Negative Urine Blood Trace-intact H Urine Nitrite Negative Urine Bilirubin Negative Urine Urobilinogen 0.2 Ur Leukocyte Esterase Negative Urine RBC 3-5 H Urine WBC 0-2 Ur Epithelial Cells Rare Urine Crystals Negative Urine Bacteria Rare Urine Casts Negative Urine Mucus Negative Ur Culture Indicated? No Urine Glucose Negative Digoxin 0.99 ABO/Rh O Positive Antibody Screen NEGATIVE 07/04/25 07/04/25 07/04/25 09:25 11:54 15:10 WBC RBC Hgb 9.0 L Hct 30.1 L MCV MCH MCHC RDW Plt Count MPV Immature Gran % Neutrophils % Lymphocytes % Monocytes % Eosinophils % Basophils % Nucleated RBC % Absolute Neutrophils Absolute Lymphocytes Absolute Monocytes Absolute Eosinophils Absolute Basophils RBC Morphology Hypochromasia Poikilocytosis Anisocytosis PT INR APTT ABG Sample Site Left Radial Arterial Line ABG pH 7.18 L* 7.22 L ABG pCO2 60 H 48 H ABG pO2 82 66 L ABG HCO3 23 19 L ABG Total CO2 22 L 20 L ABG O2 Saturation 94 L 91 L ABG Base Excess -6 L -8 L VBG pH VBG pCO2 VBG pO2 VBG HCO3 VBG Total CO2 VBG O2 Saturation VBG Base Excess VBG Lactate FiO2 100 80 Sodium Potassium Chloride Carbon Dioxide Anion Gap BUN Creatinine Est GFR (CKD-EPI 2020) Glucose Calcium Total Bilirubin AST ALT Alkaline Phosphatase Ammonia Troponin I 31 NT-Pro-B Natriuret Pep Total Protein Albumin Procalcitonin TSH Urine Color Urine Clarity Urine pH Ur Specific [place] Urine Protein Urine Ketones Urine Blood Urine Nitrite Urine Bilirubin Urine Urobilinogen Ur Leukocyte Esterase Urine RBC Urine WBC Ur Epithelial Cells Urine Crystals Urine Bacteria Urine Casts Urine Mucus Ur Culture Indicated? Urine Glucose Digoxin ABO/Rh Antibody Screen Last Vital Signs Temp 35.8 C L 07/04/25 11:35 Pulse 63 07/04/25 15:31 Resp 16 07/04/25 15:31 BP 140/75 07/04/25 15:31 Pulse Ox 92 07/04/25 15:31
[2025-07-04] MEDS: Albuterol/Ipratropium 3 ML UPD VIAL UPD (16:53)
--- NOTE | 2025-07-04 17:44 | CHAPLAIN ---
I visited with Andres's family today, his Mami, a daughter, grandson, granddaughter and a greatgranddaughter. The pulmunologist and hospitalist explained to the family that Andres is in speptic shock, aspirated, and needed to be put on a ventilator. He has some other health issues as well, and they were told he may not survive the night, and he could also survive for a few days. Andres was a patient here for more than a week, then discharged to [facility] and transferred to the ED today, then admitted to ICU. Winston live in [employer] [place]. 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 His family seems very supportive. I offered a prayer with Andres and his family and let them know that a muck miner is available 29/03..
[2025-07-04] MEDS: fentaNYL 1,000 MCG in Normal Saline 80 ML 0.708 MCG IV_INF (19:11)
[2025-07-04] MEDS: Norepinephrine in D5W 8 MG/250 ML BAG 112.5 MG IV (19:20)
[2025-07-04] MEDS: Norepinephrine in D5W 8 MG/250 ML BAG 93.75 MG IV (21:52)
[2025-07-05] VITALS (80 sets, daily range): BP systolic 70–160; BP diastolic 44–64; PULSE 68–95; RESP 7–25; O2SAT 90–99
[2025-07-05] MEDS: PROPOFOL 1,000 MG/100 ML BTL 14.2 MG IV_INF ×2 (00:36→08:33)
[2025-07-05] MEDS: Norepinephrine in D5W 8 MG/250 ML BAG 93.75 MG IV (00:39)
[2025-07-05] MEDS: DEXTROSE 10%-WATER 500 ML 50 ML IV (04:05)
[2025-07-05] MEDS: Norepinephrine in D5W 8 MG/250 ML BAG 56.25 MG IV (04:09)
[2025-07-05] MEDS: VASOPRESSIN 50 UNITS in Normal Saline 497.5 ML 42 UNITS IV (04:35)
[2025-07-05 06:39] LABS: Abs Immature Grans 0.26 10^3/uL (0.0-0.06); HCT 28.7 % (40.0-50.0); HGB 8.5 g/dL (13.5-17.5); MCH 28.3 pg (27.0-33.0); MCHC 29.6 % (32.0-36.0); MCV 96 fL (80-95); MPV 10.8 fL (8.0-11.0); Platelet Count 146 10^3/uL (130-400); RBC 3.00 10^6/uL (4.36-5.78); RDW 23.0 % (11.8-14.1); RDW-SD 81.4 fL
[2025-07-05 06:51] LABS: WBC 26.14 10^3/uL (4.4-10.8)
[2025-07-05 07:00] LABS: ALT 22 U/L (16-63); AST 27 U/L (15-37); Albumin 1.4 g/dL (3.4-5.0); Alkaline Phosphatase 183 U/L (46-116); Anion Gap 10.0 mmol/L (3-11); BUN 58 mg/dL (7-18); Bilirubin, Total 0.5 mg/dL (0.2-1.0); CO2 22.0 mmol/L (21.0-32.0); Calcium 8.5 mg/dL (8.5-10.1); Chloride 104 mmol/L (98-107); Glucose 227 mg/dL (74-106); Potassium 5.6 mmol/L (3.5-5.1); Sodium 136 mmol/L (136-145); Total Protein 5.9 g/dL (6.4-8.2)
[2025-07-05] MEDS: Norepinephrine in D5W 8 MG/250 ML BAG 75 MG IV ×2 (07:10→09:58)
[2025-07-05 07:35] LABS: Anisocytosis 1+; Immature Grans % 0.0 %
--- NOTE | 2025-07-05 07:45 | DI.RAD_ITS ---
Exam(s) XR PORTABLE CHEST AP EXAM: XR PORTABLE CHEST AP CLINICAL HISTORY: pneumonia. TECHNIQUE: 2D digital imaging was performed. COMPARISON: CR,XR XR PORTABLE CHEST AP POST LINE from 07/04/[address] CHEST/ABD/PEL WO from 07/04/2025 FINDINGS: Single AP portable view. Dated 07/05/2025 at 8:51 a.m. Distal tip of the endotracheal tube remains in satisfactory position above the cheo at the clavicular level and NG tube is again noted in the stomach. Distal tip of the right Port-A-Cath is in the right atrium, unchanged. Heart size is upper normal. The mediastinum is not widened. Pleural plaque in the medial aspect of the right lung is noted, as also seen on recent CT scan. There is significant infiltrate in the right lung, most prominent in the right lower lobe without improvement when compared to yesterday. Appears slightly more prominent. Lesser amount of infiltrate again noted in the left lower lobe. Small-moderate right-sided pleural effusion evident. No obvious left pleural effusion. IMPRESSION: As above. No radiographic improvement compared to yesterday. The right lung infiltrate as slightly further increased. See CT report from yesterday. DATA REPOSITORY: RADIATION DOSE DELIVERED:
[2025-07-05] MEDS: Normal Saline Flush 10 ML SYR IVP (07:48)
[2025-07-05] MEDS: Pantoprazole 40 MG VIAL IVP (07:48)
--- NOTE | 2025-07-05 08:16 | INITIAL_ITS ---
Date of service: 07/05/25 Time of Service: 12:19 Care Management Initial Assmt Initial Assessment Reason for Hospitalization: Respiratory failure Functional Status/Living Situation Patient Presentation: Andres was lying in bed, extubated, and surrounded by family at bedside when CM met with him. Andres was discharged to [facility] 07/02/25. He presented to the ED yesterday morning for altered mental status, hypoglycemia and was obtunded in the ED; See documentation. He was admitted to the ICU, and intubated. CM requested a palliative consult yesterday as Andres has underwent many changes following the previous consult. Andres had a code status change initiated by his HCA; See pulmonology documentation. He is now a DNR and has now been extubated. Per report, Andres will be downgraded from the ICU and an order for comfort care is in. Andres appeared comfortable at this time. CM will follow. Town of Residence: [place] Resides with: Spouse (Mami) Significant Other/Family: Local Caregiver/Guardian: Currently at [facility] Employment Status: Retired Instrumental Activities of Daily Living (ADLs): Requires support (Recent ) Medications Medication Management: No Issues/Barriers identified Physical Functioning/Mobility Assistive Device: Pt reports he utilizes a cane, ramp and CPAP. Advance Directives Advance Directives: Do you have an Advance Directive: Y , 16:23 AD On File at [facility]: Y 09/21/24, 12:51 Date Asked 06/14/25 07/04/25, 05:54 AD Date Reviewed 07/04/25 07/04/25, 05:54 COLST On File at [facility] COLST Date Scanned Code Status Resuscitation Status DNR Portal Pt does not currently have a portal and education provided: Yes Insurance Coverage/Financial Issues Insurance: Medicare Part A & B - [id number] [facility] - [id number] Care Team Visit Care Team Role Provider Type Soledad Slaughter MD Primary Care Provider [facility] STAFF PHYSICIAN Vance Rodriguez MD Other Providers [facility] STAFF PHYSICIAN Anand Villarreal MD Emergency Provider [facility] STAFF PHYSICIAN Joaquín Felix MD Admit Provider [facility] STAFF PHYSICIAN Attending Provider Discharge Potential Discharge Needs: PCP F/U Appt and Other (pulmonology) Anticipated Barriers to Discharge: Medical Status Patient/Family Education Needs: Review discharge instructions, discuss Ask Me Three Plan: At 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 Comfort cart is available. CM will continue to follow. Social Determinants of Health Screening Social Determinants of health last assessed in clinic: 07/05/25 Will the Patient Participate in the Screening?: Unable to obtain Do you worry about having a steady place to live?: no Problems where you live: no known problems In the past 12 months, have you had to go without electric, gas, oil or water in your home?: no 1. Within the past 12 months, we worried whether our food would run out before we got money to buy more.: Never true 2. Within the past 12 months, the food we bought just didn't last and we didn't have money to get more.: Never true Has lack of transportation kept you from medical appointments or from doing things needed for daily living?: no Has anyone in your life made you feel unsafe or unsupported?: no How hard is it for you to pay for the very basics like food, housing, medical care, and heating? Would you say it is:: Not hard at all Do you want help finding or keeping work or a job?: I do not need or want help If for any reason you need help with day-to-day activities such as bathing, preparing meals, shopping, managing finances, etc., do you get the help you need?: I don’t need any help Do you speak a language other than [place] at home?: No Does the patient want assistance with any of the above?: Yes Comments: patient is currently a long term resident Health Related Social Needs Health related social needs details: patient is a STR patient at [facility] All Active Problems (Updated 07/04/25 @ 17:28 by Joaquín Felix MD) Septic shock due to undetermined organism (Acute) Septic shock (Acute) Parapneumonic effusion (Acute) Pneumonia involving right lung (Acute) Anasarca (Acute) Acute hypoxemic respiratory failure (Acute) Metabolic encephalopathy (Acute) Hypoglycemia (Acute) Acute on chronic anemia (Acute) Moderate malnutrition (Acute) Ascites (Acute) Tremor (Acute) Venous stasis dermatitis of both lower extremities (Acute) 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, acquired (Acute) Edema of both lower extremities (Acute) Megaloblastic anemia due to B12 deficiency (Acute) Restrictive lung disease (Acute) Cyst of kidney, acquired (Acute) Primary malignant colorectal neoplasm (Acute) Bradycardia (Acute) Barretts esophagus (Acute) Generalized anxiety disorder (Acute) Neuropathy due to type 2 diabetes mellitus (Acute) Type 2 diabetes mellitus (Chronic) Essential hypertension (Acute) Obstructive sleep apnea syndrome (Chronic) Iron deficiency anemia (Acute) Screening for malignant neoplasm of skin (Acute) Abnormal skin growth (Acute) Actinic keratoses (Acute) Seborrheic keratoses (Acute) Disorder of the skin and subcutaneous tissue, unspecified (Acute) Leg wound, right (Acute) Umbilical hernia (Acute) Hyperlipidemia (Chronic) Hypertension (Chronic) Obesity (Chronic) COPD (chronic obstructive pulmonary disease) (Chronic) GERD (gastroesophageal reflux disease) (Chronic) Gout (Chronic) Stasis dermatitis of both legs (Chronic) Anemia (Acute) Diabetes mellitus type 2 in obese (Acute) Sinus bradycardia (Acute) 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) (Acute) Cellulitis of leg, right (Acute) Chronic venous stasis dermatitis of both lower extremities (Acute) COPD (chronic obstructive pulmonary disease) (Chronic) DVT prophylaxis (Acute) Ulcer of right lower leg (Acute) Venous stasis (Acute) Venous stasis ulcer of ankle limited to breakdown of skin (Acute) Leg length discrepancy (Acute 02/09/18) Primary osteoarthritis of right knee (Acute 11/01/17) Mitral valve regurgitation (Chronic) CVA (cerebral vascular accident) (Chronic) CKD stage 3 due to type 2 diabetes mellitus (Acute) Diabetic neuropathy (Acute) Onychomycosis (Acute) Medical History Atrial fibrillation Intertriginous candidiasis Decubitus ulcer of coccyx, stage 2 Advance care planning ORVILLE positive Gout Severe obesity Tinnitus Hernia of anterior abdominal wall Family history of malignant neoplasm of prostate Proteinuria Idiopathic stabbing headache Antinuclear factor positive History of CVA (cerebrovascular accident) without residual deficits Kidney mass COVID Cutaneous abscess of abdominal wall Slurred speech Weakness Diabetic ulcer of right lower leg associated with diabetes mellitus due to underlying condition, with fat layer exposed Renal insufficiency Cirrhosis Cellulitis Hx TIA/stroke w/o resid SAMMI on CPAP HLD (hyperlipidemia) HTN (hypertension) Venous stasis ulcer right lateral calf Acute kidney injury (nontraumatic) Scalp hematoma Chest wall contusion Syncope Diabetes mellitus Community acquired pneumonia With hypoxia and bronchospasm. Surgical History History of surgery Debridement of right leg wound with Apligraf History of cholecystectomy H/O rectal sphincterotomy History of appendectomy History of total right hip arthroplasty Family History Father , age 63 Heart disease Stroke Hypertension Mother , age 101 No problems noted. Brother Prostate cancer Other Neoplasm Social History Smoking/Tobacco Use Status: Former Tobacco Use Quit Date: 03/06/84 Smoking risk assessment performed?: Yes Alcohol Intake: never Drug use: Never Substance use type: does not use Housing: long term Current gender identity: male Do you feel safe at home: Yes Do you feel safe in your relationship?: Yes Readmission Within the Past 30 Days Yes or No: Yes Date of First Admission Date of 1st Admission: 06/14/25 Date of this Admission Date of Admission: 07/04/25 This admission was: Through ED Office Visit Since 1st Admission Have you seen your PCP in the office since discharge?: No Had an appointment Been Scheduled?: No Speicalist Appointments Have you seen any other specialist since your 1st Admission?: No I. Interview patient and/or Family Difficulty reaching your doctor or getting an office appt?: No Have you had trouble purchasing/ or taking medication?: No How do you take your medications and set up your pills?: Rehab Have you had trouble with getting meals at home?: No Did you feel ready for discharge when you left the last time: Yes Were services received that you thought were set up on disch: Yes Did you call your physician beore you came to the ED?: Yes (At rehab) If the patient came from Ext. Facility Call the Facility to discuss the patient's admission: Per the nurse at [facility] rehab the patient was doing well at 4 AM, and s leeping soundly. At 5 AM he was found to have gurgling respirations, blood in his mouth, and was obtunded. He was on his nightly CPAP. Blood sugar was in the 30s. He was given glucagon at [facility] rehab. Oxygen saturations were in the low 80s on his CPAP. EMS was called and he was brought to the ER. ED visits How many ED visits in the past 12 months: 3 Assessment for Readmission Summary of readmission circumstances, based upon interviews: Patient went to rehab and went into Respiratory failure and returned to [facility]
--- NOTE | 2025-07-05 08:30 | RT.EKG_ITS ---
APPROVED REPORT Exam: Resting ECG Reason for Exam: hyperkalemia Patient Location: I HR:82 bpm ECG Measurements Heart Rate 82 AXIS IN 192 P -9 QRSd 93 QRS 13 QT 364 T 216 QTc 425 Conclusion Sinus rhythm...normal P axis, V-rate 50- 99 Low voltage, extremity leads...all extremity leads <0.5mV Artifact Nondiagnostic ST-T abnormalities
[2025-07-05] MEDS: fentaNYL 1,000 MCG in Normal Saline 80 ML 7.08 MCG IV_INF (08:59)
--- NOTE | 2025-07-05 09:03 | W.PULMCC ---
General Date of Service Date of service: 07/05/25 Time of Service: 08:00 Assessment and Plan Assessment and plan (1) Acute hypoxemic respiratory failure: Status: Acute (2) Pneumonia involving right lung: Status: Acute (3) Septic shock: Status: Acute (4) Immunocompromised state due to drug therapy: Status: Chronic (5) Anasarca: Status: Acute (6) Anemia: Status: Acute (7) Primary malignant colorectal neoplasm: Status: Acute (8) Acute on chronic kidney failure: Status: Resolved Recommendations Pulmonary: Assessment: 1. Acute hypoxemic respiratory failure - due to pneumonia and aspiration 2. Septic shock - due to pneumonia 3. Encephalopathy - initially due to hypoglycemia. CT head unremarkable. Currently sedated with propofol/fentanyl 4. Aspiration pneumonia - given prolonged hospitalization at risk for MDR. S/P bronchoscopy with RLL BAL - cultures pending 5. Cirrhosis / ascites - POCUS exam 07/04 showed moderate ascites. Likely due to cirrhosis. Given stable Hb unlikely hemoperitoneum 6. Pleural effusions - only trace right pleural effusion noted on POCUS exam 07/04. He appears to have some loculated fluid in the major fissure, which was present during his last admission. Suspect he has some 3rd spacing related to cirrhosis. Cannot rule out parapnuemonic / empyema, but feel this is less likely 7. Paroxysmal Afib - rate controlled. In sinus rhythm this AM 8. Anemia - had a recent GI bleed. No signs of active bleeding at this time. Hb overall stable at 8.5 9. Colorectal cancer - recently received chemotherapy (FolFox) 10. Acute on chronic renal failure - Cr increased to 2.2 this AM. Potassium 5.6 11. Hx positive ORVILLE/anti-dsDNA ab - ? lupus 12. SAMMI 13. COPD - FEV1 64% in 2016. Not in exacerbation Recommendations: - continue vancomycin, cefepime, and unasyn for pneumonia coverage, pending BAL results - repeat ABG - advance ET tube 2 cm - titrate levophed for MAP > 65. Can titrate off vasopressin this AM - titrate down FiO2 for SPO2 > 90%. Keep PEEP at 8 cmH2O - his renal function is concerning. Should it worsen or potassium rise, would be a very poor prognostic sign. His overall prognosis is very guarded at this time. I had a long discussion with family at bedside this AM regarding goals of care. They plan to discuss with other family members. At this time, continue current management. Had a long discussion regarding his code status on 07/04 and again this AM. Family elected to make him DNR, which I feel is in the patients best interest. - continue propofol / fentanyl for sedation Discussed with Dr. Jara I&O: Intake & Output 07/02/25 07/03/25 07/04/25 07/05/25 23:59 23:59 23:59 23:59 Intake Total 2389.661 / 2389.661 1870.897 / 1870.897 Output Total 725 / 725 300 / 300 Balance 1664.661 / 5270.439 7210.897 / 1570.897 Weight 115.9 kg 117 kg Code Status: Resuscitation Status DNR Subjective Critical and life-threatening events over the past 24 hours: Patient is an 84 yo with a history of colon cancer, afib, COPD, cirrhosis, CKD, and SAMMI who was admitted on 07/04/25 for encephalopathy and acute respiratory failure. He had a prolonged hospitalization earlier this month for afib w RVR, pneumonia and lower GI bleeding. He was discharged on 07/02/25. Was brought to the ED 07/04 for encephalopathy and hypoglycemia. Was intubated in the ED for encephalopathy and airway protection. There was concern that he had aspirated prior to arrival. CT imaging in the ED showed worsening right infiltrates, atelectasis/consolidation of the right lower lobe. CT abd showed significant ascites. Bronchoscopy with removal of significant mucous plugging from the right lung was completed in the ED. BAL of the RLL was collected and sent for analysis/culture. He was started on broad spectrum antibiotics. He is currently on FiO2 60%. On levophed and vasopressin for BP support. Overall pressor requirement has improved over the past 12 hours. Sedated with propofol and fentanyl. ROS: Unable to obtain due to clinical condition Exam Narrative Exam Narrative: General: intubated, sedated, no acute distress Head: normocephalic, ET tube in place ENT: no stridor, trachea midline CV: normal rate, regular rhythm Respiratory: no wheezing, no crackles, bilateral rhonchi, no prolonged expiration GI: abd soft, mild distension Skin: no rashes Extremities: +1 edema Neuro: sedated Most Recent VS/Results Last Vital Signs Temp 35.8 C L 07/04/25 23:00 Pulse 71 07/05/25 02:45 Resp 24 07/05/25 08:03 BP 149/56 H 07/05/25 08:03 Pulse Ox 99 07/05/25 08:03 Laboratory Results - last 24 hr 07/04/25 07/04/25 07/04/25 06:00 09:25 11:54 WBC RBC Hgb 9.0 L Hct 30.1 L MCV MCH MCHC RDW Plt Count MPV Immature Gran % Neutrophils % Band Neutrophils % Lymphocytes % Atypical Lymphs % Monocytes % Eosinophils % Basophils % Nucleated RBC % Absolute Neutrophils Absolute Lymphocytes Absolute Monocytes Absolute Eosinophils Absolute Basophils Anisocytosis ABG Sample Site Left Radial ABG pH 7.18 L* ABG pCO2 60 H ABG pO2 82 ABG HCO3 23 ABG Total CO2 22 L ABG O2 Saturation 94 L ABG Base Excess -6 L FiO2 100 Sodium Potassium Chloride Carbon Dioxide Anion Gap BUN Creatinine Est GFR (CKD-EPI 2020) Glucose Calcium Total Bilirubin AST ALT Alkaline Phosphatase Troponin I 31 Total Protein Albumin ABO/Rh O Positive Antibody Screen NEGATIVE 07/04/25 07/05/25 15:10 06:00 WBC 26.14 H* RBC 3.00 L Hgb 8.5 L Hct 28.7 L MCV 96 H MCH 28.3 MCHC 29.6 L RDW 23.0 H Plt Count 146 MPV 10.8 Immature Gran % 0.0 Neutrophils % 92.0 Band Neutrophils % 1 Lymphocytes % 2.0 Atypical Lymphs % 0 Monocytes % 5.0 Eosinophils % 0.0 Basophils % 0.0 Nucleated RBC % 0.0 Absolute Neutrophils 24.31 H Absolute Lymphocytes 0.52 L Absolute Monocytes 1.31 H Absolute Eosinophils 0.00 Absolute Basophils 0.00 Anisocytosis 1+ ABG Sample Site Arterial Line ABG pH 7.22 L ABG pCO2 48 H ABG pO2 66 L ABG HCO3 19 L ABG Total CO2 20 L ABG O2 Saturation 91 L ABG Base Excess -8 L FiO2 80 Sodium 136 Potassium 5.6 H Chloride 104 Carbon Dioxide 22.0 Anion Gap 10.0 BUN 58 H Creatinine 2.2 H Est GFR (CKD-EPI 2020) 28.81 Glucose 227 H Calcium 8.5 Total Bilirubin 0.5 AST 27 ALT 22 Alkaline Phosphatase 183 H Troponin I Total Protein 5.9 L Albumin 1.4 L ABO/Rh Antibody Screen Time spent with patient Time spent in Critical Care: 60 Time spent in Critical care included: Performing procedures not included in c.c time, Coordination of care, Chart review, Documenting critically ill care, Time at immediate bedside, Discussing critically ill care with other medical staff and Discussing care with family members
[2025-07-05] MEDS: INSULIN REGULAR IN 0.9 % NACL 100 UNIT/100 ML BAG IVINF (09:13)
[2025-07-05] MEDS: CALCIUM GLUCONATE in NaCl 1 GM/50 ML BAG IVPB (09:18)
[2025-07-05 09:23] LABS: BE -8 mmol/L (-2-3); HCO3 20 mmol/L (22-26)
[2025-07-05 09:24] LABS: FIO2L 60 L
[2025-07-05] MEDS: Hyoscyamine 0.125 MG SL/ORAL/CHEW SL (12:06)
--- NOTE | 2025-07-05 13:48 | CHAPLAIN ---
Andres code status was changed yesterday to DNR and this morning his Mami planned with staff with extubate Andres. There were several family members in the room following the extubation and Andres continued to breath on his own. He opened his eyes when Mami was talking directly to him. I offered a prayer with family members. I will continue to check in with Andres and his family and the day goes on.
--- NOTE | 2025-07-05 15:28 | W.PC.ACHO ---
Registration Status: ADM IN Primary Language: Preferred Language: Yi ED Information & Data Chief Complaint AMS/LOC 07/04/25 07:01 Chief Complaint AMS/LOC 07/04/25 06:21 Triage Note [facility], 07/04/25 05:47 was discharged from here about 36 hours ago, pt found with blood coming out of mouth, breathing but otherwise unresponsive. pt uses cpap SpO2 was 82. 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 Kidney mass COVID Cutaneous abscess of abdominal wall Slurred speech Weakness Diabetic ulcer of right lower leg associated with diabetes mellitus due to underlying condition, with fat layer exposed Renal insufficiency Cirrhosis Cellulitis Hx TIA/stroke w/o resid SAMMI on CPAP HLD (hyperlipidemia) HTN (hypertension) Venous stasis ulcer Acute kidney injury (nontraumatic) Scalp hematoma Chest wall contusion Syncope Diabetes mellitus Community acquired pneumonia (Last Reviewed 07/04/25 @ 16:51 by Dana Griffin MD) History of surgery History of cholecystectomy H/O rectal sphincterotomy History of appendectomy History of total right hip arthroplasty Most Recent Vital Signs Temperature 35.8 C L 07/04/25 23:00 Temperature Source Temporal Artery Scan 07/04/25 17:00 Pulse 90 07/05/25 11:42 Pulse 88 07/05/25 11:42 Respiratory Rate 17 07/05/25 11:42 Respiratory Effort Mechanically Ventilated 07/04/25 11:35 Respiratory Depth Shallow 07/04/25 05:45 Respiratory Pattern Normal 07/04/25 05:45 Blood Pressure 130/47 L 07/05/25 11:41 Blood Pressure Mean 72 07/05/25 11:41 Blood Pressure Position Supine 07/04/25 11:35 Pulse Oximetry 98 07/05/25 11:42 Respiratory End-tidal CO2 31 07/05/25 08:03 Oxygen Delivery Method Room Air 07/05/25 11:45 Oxygen Flow Rate 0 07/05/25 11:45 Fraction of Inspired Oxygen (FIO2) 65 07/05/25 10:02 Arterial Systolic 149 07/05/25 08:15 Arterial Diastolic 50 07/05/25 08:15 Arterial Mean 18 07/05/25 09:01 Allergies cephalexin Adverse Reaction (Intermediate, Verified 07/04/25 09:55) genitourinary edema Precautions Isolation Standard precaution 07/04/25 07:01 Active Medications Generic Name Dose Route Start Last Admin Trade Name Freq PRN Reason Stop Dose Admin Albuterol/Ipratropium 3 ml 07/04/25 09:16 07/04/25 16:53 Albuterol/Ipratropium 3 Ml Upd Vial UPD 3 ml Q6H PRN PRN Administration Hyoscyamine Sulfate 0.125 mg 07/05/25 11:37 07/05/25 12:06 Hyoscyamine 0.125 Mg Sl/Oral/Chew SL 0.125 mg Q4H PRN PRN Administration Fentanyl 1,000 mcg/ Sodium 100 mls @ 8.26 mls/hr 07/04/25 07:45 07/05/25 08:59 Chloride IV_INF 0.6 mcg/kg/hr INFUSION HENRY 7.08 mls/hr Protocol Administration 0.7 MCG/KG/HR Sodium Chloride 0 ml 07/04/25 05:54 07/04/25 15:41 Normal Saline Flush 10 Ml Syr IVP 60 ml PRN PRN Administration Sodium Chloride 0 ml 07/04/25 08:30 07/05/25 07:48 Normal Saline Flush 10 Ml Syr IVP 40 ml BID HENRY Administration IV IV Catheter Type [Right Peripheral IV Subclavian] IV Catheter Type [Left Peripheral IV Antecubital] IV Catheter Type [Right Saline Lock Antecubital] IV Catheter Gauge [Right 20 Subclavian] IV Catheter Gauge [Left 20 Antecubital] IV Catheter Gauge [Right 18 Antecubital] Diagnostics 07/05/25 07/05/25 07/05/25 Range/Units 15:00 09:14 06:00 WBC 26.14 H* (4.4-10.8) 10^3/uL RBC 3.00 L (4.36-5.78) 10^6/uL Hgb 8.5 L (13.5-17.5) g/dL Hct 28.7 L (40.0-50.0) % MCV 96 H (80-95) fL MCH 28.3 (27.0-33.0) pg MCHC 29.6 L (32.0-36.0) % RDW 23.0 H (11.8-14.1) % Plt Count 146 (130-400) 10^3/uL MPV 10.8 (8.0-11.0) fL Immature Gran % 0.0 % Neutrophils % 92.0 % Band Neutrophils % 1 % Lymphocytes % 2.0 % Atypical Lymphs % 0 % Monocytes % 5.0 % Eosinophils % 0.0 % Basophils % 0.0 % Nucleated RBC % 0.0 (0.0-0.3) % Absolute Neutrophils 24.31 H (1.2-6.7) 10^3/uL Absolute Lymphocytes 0.52 L (1.2-3.4) 10^3/uL Absolute Monocytes 1.31 H (0.1-0.8) 10^3/uL Absolute Eosinophils 0.00 (0.0-0.7) 10^3/uL Absolute Basophils 0.00 (0.0-0.2) 10^3/uL Anisocytosis 1+ ABG Sample Site Right Radial ABG pH 7.25 L (7.35-7.45) ABG pCO2 46 H (35-45) mmHg ABG pO2 65 L (80-105) mmHg ABG HCO3 20 L (22-26) mmol/L ABG Total CO2 20 L (23-27) mmol/L ABG O2 Saturation 92 L (95-98) % ABG Base Excess -8 L (-2-3) mmol/L Oxygen Liter Flow 60 L Sodium Cancelled 136 (136-145) mmol/L Potassium Cancelled 5.6 H (3.5-5.1) mmol/L Chloride Cancelled 104 (98-107) mmol/L Carbon Dioxide Cancelled 22.0 (21.0-32.0) mmol/L Anion Gap Cancelled 10.0 (3-11) mmol/L BUN Cancelled 58 H (7-18) mg/dL Creatinine Cancelled 2.2 H (0.70-1.30) mg/dL Est GFR (CKD-EPI 2020) Cancelled 28.81 (mL/min/1.73m2) Glucose Cancelled 227 H (74-106) mg/dL Calcium Cancelled 8.5 (8.5-10.1) mg/dL Total Bilirubin 0.5 (0.2-1.0) mg/dL AST 27 (15-37) U/L ALT 22 (16-63) U/L Alkaline Phosphatase 183 H (46-116) U/L Total Protein 5.9 L (6.4-8.2) g/dL Albumin 1.4 L (3.4-5.0) g/dL 07/04/25 06:20 Blood Culture - Preliminary Blood Gram positive cocci 07/04/25 06:25 Blood Culture - Preliminary Blood NO GROWTH 24 HOURS [id number] Documentation Fingerstick Glucose Start: 07/04/25 05:57 Freq: Status: Complete Protocol: Activity Type Activity Date Activity User E-sign Co-sign Detail Recorded Client Recorded Date Recorded By Document 07/04/25 05:54 BKG DAEMON(5) NVT-BG05 07/04/25 05:57 BKG DAEMON(6) Fingerstick Glucose Start: 07/04/25 06:13 Freq: .Q1H Status: Complete Protocol: Activity Type Activity Date Activity User E-sign Co-sign Detail Recorded Client Recorded Date Recorded By Document 07/05/25 11:04 BKG DAEMON(7) NVT-BG05 07/05/25 11:05 BKG DAEMON(8) Intake and Output - 24 Hour Total 07/04/25 05:39 thru 07/05/25 12:28 Intake Total 5196.274 Output Total 1025 Balance 4171.274 Weight 117 kg Intake: IV 5196.274 Output: Urine 1025 Other: Urine Color Yellow Urine Appearance Clear Comment verma to gravity at this time with cloudy yellow urine. Chronic kidney failure Urinary Catheter Urinary Catheter Date of 07/04/25 Insertion [Urethral (Verma)] Urinary Catheter Date of 07/04/25 Insertion [Urethral (Verma)] Time of insertion [Urethral ( :25 Verma)] Time of insertion [Urethral ( : Verma)] Falls Risk Assessment History of Falls No History 07/04/25 11:35 Contributing Factors Unstable,Impairments, 07/04/25 11:35 Incontinence Tubes/Lines With any additional score 07/04/25 11:35 Gait Evaluation No gait disturbance 07/04/25 11:35 Fall Total Score 29 07/04/25 11:35 Level of Risk Moderate Risk 07/04/25 11:35 Restraint Information Behavior Requiring Restraints/ Harm to Patient Seclusion Date of Initiation 07/04/25 Note pt is still intubated Criteria for Restraint Removal No longer threat to self Problems (Last Reviewed 07/04/25 @ 16:51 by Dana Griffin MD) Septic shock due to undetermined organism (Acute) Septic shock (Acute) Pneumonia involving right lung (Acute) Anasarca (Acute) Acute hypoxemic respiratory failure (Acute) Metabolic encephalopathy (Acute) Hypoglycemia (Acute) Ascites (Acute) 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 NRB placed on pt w/improved sats to 92. Pt became slightly more awake but still minimal responsiveness and showed no gag. Pt intubated w/out complication for airway protection. Initialized on 07/04/25 06:36 - END OF NOTE 07/04/25 06:15 Nursing Notes by Lizabeth Garcia Nursing Note: 0547 Patient arrives via EMS from [facility]. O2 78% on 6L. breathing on his own but unresponsive. BGL 32 by EMS. 0548 bilateral IV access established. 18G R AC, 20G L AC. labs obtained. 0551 pushed 50mL glucagon 0555 decision made to intubate 0601 pushed 20mg etomidate 0602 pushed 100mg rocuronium 0602 intubated with 7.5 ET tube, 22 @ teeth 0605 propofol started at 20mcg/kg 0607 OG tube placed, 60 @ lips Initialized on 07/04/25 06:15 - END OF NOTE v v v v v v v v v Sending and/or Receiving Nurses: Please use comment section below to note any information pertinent to the patient hand-off not included above. Information / Comments: Pt on comfort care, transferred to PA with nursing at 1510 to room 225, family at bedside. Report received from: REJI Boyle
--- NOTE | 2025-07-05 16:09 | PDOC.CMPRO ---
Date of service: 07/05/25 Time of Service: 16:10 Care Management Progress Note Progress Note Text Progress Note Text: Andres passed surrounded by family. Family is looking into final arrangements. Social Determinants of Health Screening Social Determinants of health last assessed in clinic: 07/05/25 Will the Patient Participate in the Screening?: Unable to obtain Do you worry about having a steady place to live?: no Problems where you live: no known problems In the past 12 months, have you had to go without electric, gas, oil or water in your home?: no Has lack of transportation kept you from medical appointments or from doing things needed for daily living?: no Has anyone in your life made you feel unsafe or unsupported?: no How hard is it for you to pay for the very basics like food, housing, medical care, and heating? Would you say it is:: Not hard at all Do you want help finding or keeping work or a job?: I do not need or want help If for any reason you need help with day-to-day activities such as bathing, preparing meals, shopping, managing finances, etc., do you get the help you need?: I don’t need any help Do you speak a language other than O[place]i at home?: No Does the patient want assistance with any of the above?: Yes Comments: patient is currently a shelter resident Health Related Social Needs Health related social needs details: patient is a STR patient at [facility]
--- NOTE | 2025-07-05 16:48 | W.PM.DDS ---
Date of service: 07/05/25 Time of Service: 16:48 Discharge Plan Disposition Patient Disposition: Discharge Details Reason For Visit: Respiratory Failure Admit Date/Time: 07/04/25 09:17 Admit Provider: Joaquín Felix Attending Provider: Joaquín Felix Primary Care Provider: Soledad Slaughter Hospital Course Hospital Course: Dionna Iniguez was an 84 year old man with cirrhosis, CKD 3, type 2 DM, COPD, h/o CVA, active colon cancer on chemotherapy, and recent admission for pneumonia with sepsis and Afib/RVR and digoxin toxicity who presented July 04 sent from rehab facility where he was found obtunded, on CPAP, with gurgling respirations and blood in his mouth. SpO2 reportedly in the 80's, blood sugar reportedly in the 30's. He was given glucagon and brought to ED. GCS 5 on arrival with SpO2 74%, blood sugar was low 30's and he was given an amp of D50 which resulted in eye opening and some vocalization, but he then remained unresponsive. He had fluid coming out of his mouth concerning for aspiration, and was intubated. CT chest concerning for extensive right infiltrate concerning for loculated effusion or empyema, along with abdominal ascities. He was hypotensive and started on norepinephrine, then vasopressin added along with D10W to maintain blood sugars. He was treated with cefepime and vancomycin for pneumonia. He was evaluated by Dr. Rodriguez from pulmonology who followed the case. Overnight his white count and creatinine increased and he remained on two pressors. His potassium increased to 5.6 and he had some ventricular ectopy seen on telemetry, so calcium gluconate was given and insulin drip was added to his IV D10 fluids. After discussion with family including his /DPOA, the decision was made to transition to comfort status and extubate the patient. He passed about 4 hours later. Discharge Data Cause of : Aspiration pneumonia Discharge Sum: Prov Provider Primary care physician: Soledad Slaughter Admitting clinician: Joaquín Felix Attending physician on admission: Joaquín Felix Consults: 07/04/25 09:21 Pulmonology Consult [CONS] Routine Consulting Provider: Vance Rodriguez Consultation Status:: Contact made by MD Clarification:: Manage/follow per spec. Reason for consult:: mechanical ventilation, empyema 07/04/25 10:45 Palliative Care Consult [CONS] Routine Consultation Status:: Contact made by Clarification:: Manage/follow per spec. Reason for consult:: goals of care 07/05/25 11:[address] Justice Consult [CONS] Routine Consultation Status:: Follow-up needed Clarification:: Manage/follow per spec. Reason for consult:: now SCIENCE INTERN Pronouncing clinician: Anand Jara Discharge Sum: Diag PCOD Cause of : Aspiration pneumonia Contributing Factors (1) Acute hypoxemic respiratory failure: (2) Pneumonia involving right lung: (3) Septic shock: (4) Immunocompromised state due to drug therapy: (5) Anemia: (6) Primary malignant colorectal neoplasm: (7) Acute on chronic kidney failure: (8) Cirrhosis: Discharge Sum: Summary Date and Time Admission Date: 07/04/25 Date of : 07/05/25 Time of : 13:50 Summary Details: Dionna Iniguez was an 84 year old man with cirrhosis, CKD 3, type 2 DM, COPD, h/o CVA, active colon cancer on chemotherapy, and recent admission for pneumonia with sepsis and Afib/RVR and digoxin toxicity who presented July 04 sent from rehab facility where he was found obtunded, on CPAP, with gurgling respirations and blood in his mouth. SpO2 reportedly in the 80's, blood sugar reportedly in the 30's. He was given glucagon and brought to ED. GCS 5 on arrival with SpO2 74%, blood sugar was low 30's and he was given an amp of D50 which resulted in eye opening and some vocalization, but he then remained unresponsive. He had fluid coming out of his mouth concerning for aspiration, and was intubated. CT chest concerning for extensive right infiltrate concerning for loculated effusion or empyema, along with abdominal ascities. He was hypotensive and started on norepinephrine, then vasopressin added along with D10W to maintain blood sugars. He was treated with cefepime and vancomycin for pneumonia. He was evaluated by Dr. Rodriguez from pulmonology who followed the case. Overnight his white count and creatinine increased and he remained on two pressors. His potassium increased to 5.6 and he had some ventricular ectopy seen on telemetry, so calcium gluconate was given and insulin drip was added to his IV D10 fluids. After discussion with family including his /DPOA, the decision was made to transition to comfort status and extubate the patient. He passed about 4 hours later. Additional Data Confirmation of as documented by pronouncing clinician: no pulse, no respirations, no heart sounds and pupils fixed and dilated Family: at bedside Additional persons at bedside: elementary supervisor Attending/PCP notified?: Yes Attending Physician: Anand Jara Was code activated?: No Autopsy requested?: No mail distribution scheme examiner notified?: No Organ bank notified?: Yes Advance directives: Yes Hospice patient?: No
[2025-07-05 18:08] LABS: Lymphocytes Fluid Relative 2 % ((See Note)); Mono/Macrophage Fluid Relative 5 % ((See Note)); Neutrophils Fluid Relative 93 % ((See Note))
== END 2025-07-05 19:20 | disposition expired | DRG 871 ==
LOC: ER 09:18 → ICU 11:12 → MS 07-05 15:11
PROVIDERS: Internal Medicine Pulmonary Disease; Student in an Organized Health Care Education/Training Program; Admitting Provider Family Medicine; Emergency Provider Emergency Medicine; PCP Family Medicine; Responsible Provider Family Medicine; Visit Provider Family Medicine
DX: J96.01 Acute respiratory failure with hypoxia (principal); J44.0 Chronic obstructive pulmonary disease with (acute) lower respiratory infection; J69.0 Pneumonitis due to inhalation of food and vomit; G47.33 Obstructive sleep apnea (adult) (pediatric); E11.22 Type 2 diabetes mellitus with diabetic chronic kidney disease; N18.30 Chronic kidney disease, stage 3 unspecified; D64.9 Anemia, unspecified; A41.9 Sepsis, unspecified organism; R65.21 Severe sepsis with septic shock; D84.821 Immunodeficiency due to drugs; K74.60 Unspecified cirrhosis of liver; I48.91 Unspecified atrial fibrillation; R60.1 Generalized edema; C19 Malignant neoplasm of rectosigmoid junction; N17.9 Acute kidney failure, unspecified; G93.41 Metabolic encephalopathy; T17.890A Other foreign object in other parts of respiratory tract causing asphyxiation, initial encounter; J98.11 Atelectasis; E44.0 Moderate protein-calorie malnutrition; Z59.19 Other inadequate housing; I87.2 Venous insufficiency (chronic) (peripheral); K22.70 Barrett's esophagus without dysplasia; F41.1 Generalized anxiety disorder; E11.40 Type 2 diabetes mellitus with diabetic neuropathy, unspecified; I12.9 Hypertensive chronic kidney disease with stage 1 through stage 4 chronic kidney disease, or unspecified chronic kidney disease; E78.5 Hyperlipidemia, unspecified; E66.9 Obesity, unspecified; K21.9 Gastro-esophageal reflux disease without esophagitis; I34.0 Nonrheumatic mitral (valve) insufficiency; Z86.73 Personal history of transient ischemic attack (TIA), and cerebral infarction without residual deficits; E11.649 Type 2 diabetes mellitus with hypoglycemia without coma; R79.89 Other specified abnormal findings of blood chemistry; Z66 Do not resuscitate; Z79.899 Other long term (current) drug therapy; Z51.5 Encounter for palliative care; Z79.4 Long term (current) use of insulin
CPT/HCPCS: 31624; 00123; 31500; 36415; 36416; 36592; 51702; 71045; 71250; 76937; 80048; 80053; 80162; 82805; 82962; 84145; 86850; 86900; 86901; 87040; 87070; 87077; 87102; 87116; 87205; 87206; 93005; 96365; 96366; 96368; 96375; 99291; 36600; 36620; 70450; 74176; 81003; 81015; 82140; 83605; 83880; 84443; 84484; 85014; 85018; 85025; 85610; 85730; 88104; 93010; 94002; 94640; 94760; 99222; J0295; J0613; J0692; J2470; J2598; J2704; J3010; J3373; J3490; J7620

== ENCOUNTER → 2025-07-05 09:26 | Outpatient (BNVA) | payer MEDICARE, SELFPAY | PROVIDERS: PCP Family Medicine; Referring Provider Family Medicine; Visit Provider Internal Medicine Pulmonary Disease ==